=== PATIENT | female | born 1970 | race Caucasian/White ===

== ENCOUNTER 2016-11-09 09:17 | Emergency (ER) | payer OTHER, MEDICARE, MEDICAID ==
[~2016-11-09] VITALS: Ht 157.5 cm; Wt 110.7 kg
[~2016-11-09 09:17] MED LIST: ACYC400T21 PO; ADVAIR IH; ALBU0.8322 IH; ALBU17AE23 IH; ALPR.25T; ALPR.25T PO; ALPR.5T PO; ALPR0.25 PO; ALPR0.254 PO; ALPR0.5T PO; ALPR0.5T7 PO; AMOX500C2 PO; ARIP10TA2 PO; ATOR10TA PO; ATOR40TA70 PO; AZIT250T5 PO; AZTH250C PO; BENZ100C18 PO; BUDE10.2 IH; BUDE6HFA IH; BUPR300T PO; BUPR300T51 PO; CALC500T6 PO; CEFD300C3 PO; CEFU250T PO; CETI10TA17 PO; CHLO10TA10 PO; CHOL100061 PO; CHOL400C8 PO; CLAR500T2 PO; CLON0.5T3 PO; CLOT45CR46 TOP; CYAN10007 PO; DESV50TA PO; DEXA1TAB PO; DIAZ-345 PO; DIAZ10TA PO; DOXY100C2 PO; DOXY100C42 PO; DXCC100C PO; ERGO400C PO; FLC100T1 PO; FLUC100T PO; FLUO20CA25 PO; FLUO40CA PO; FLUO40CA12 PO; FLUT16SP22; FLUT16SP22 NS; FLUT1DIS26 IH; FURO20TA4 PO; GABA-488 PO; GABA-490 PO; GARL200T PO; GFN600TCR PO; GUAI100L13 PO; GUAIFENESIN PO; HYDR-2858 PO; HYDR25CA PO; HYDR25TA4 PO; HYDR50TA76 PO; IBP200T PO; IBUP-1780 PO; IBUP800T26 PO; INSU100I14 SQ; IPRA3AMP11 NEB; IPRA3AMP19 IH; KCL20TCR PO; LEVA1.2516 IH; LEVO500T2 PO; LEVO500T69 PO; LEVO500T80 PO; LEVO750T24 PO; LEVO750T6 PO; LISI10TA; LORA-405 PO; LORA0.5T PO; LORA10TA7 PO; LOVA20TA2 PO; LVF500T; LVF500T PO; MAGIC MOUTHWASH MT; MAGIC MOUTHWASH PO; MELA1TAB11 PO; MELA1TAB20 PO; METF500T4 PO; METH4TAB PO; MNTL10T PO; MONT10TA24 PO; MORP15TA PO; MORP20SO15 PO; MORP30TA91 PO; MORP60CP12 PO; MTF500T PO; MULT-974 PO; NAPR-243 PO; NCT21TD TOP; NF-XOP-HFA IH; NICO1PAT6 TD; NICO4LOZ47 BC; NYST1000 MM; NYST1000 PO; OFLO5DRO7 LEFT EAR; OMEP20CA12 PO; OXYC-197 PO; PANT40TA PO; PNT40TEC PO; POTA10TA PO; POTA99TA21 PO; PRD10T; PRD10T PO; PRD20T PO; PRD50T PO; PRD5T PO; PRED10TA PO; PRED10TA22 PO; PRED5TAB PO; PROZAC; PRX25T PO; QUET25TA33 PO; QUET50TA21 PO; ROFL500T PO; ROFL500T4 PO; RT-ALBUINH INH; SENN1TAB76 PO; SLMFT1E IH; SPIRIVA; SULF1TAB38 PO; THEOPHYLLINE; THP300TCR PO; TIOT18CA IH; TIOT18CA2 IH; TIOT4MIS3 IH; TRAM-42 PO; TRIA100A TP; VALERIAN ROOT PO; VILA10TA PO; VILA1TAB PO; VISTARIL; VORT10TA PO; [UNRECOGNIZED DRUG - OTHER]; [UNRECOGNIZED DRUG - REMARK]; prednisone
[2016-11-09] MEDS ORDERED: ONDANSETRON 4 MG (ZOFRAN) ORAL DISSOLVE TAB PO ONE (10:00)
[2016-11-09] MEDS ORDERED: TETANUS,DIPTH,PERTUSS P/F (BOOSTRIX) 0.5 ML VIAL IM ONE (10:00)
--- NOTE | 2016-11-09 10:33 | Diagnostic Imaging Report ---
INDICATION: Pelvic pain AP view pelvis shows no fracture or dislocation. IMPRESSION: Negative pelvis Dictated by: Dictated on workstation # [id number]
--- NOTE | 2016-11-09 10:38 | Diagnostic Imaging Report ---
INDICATION: Left hip pain and bruising Two views of the left hip show no fracture or dislocation. IMPRESSION: Negative left hip Dictated by: Dictated on workstation # [id number]
--- NOTE | 2016-11-09 10:42 | Diagnostic Imaging Report ---
PROCEDURE: CT head and maxillofacial without contrast. TECHNIQUE: Multiple contiguous axial images were obtained through the head and facial bones without the use of intravenous contrast. INDICATION: Fall. Headache. Head injury. COMPARISON: None. FINDINGS: No fractures. The paranasal sinuses and mastoids are clear. Moderate degenerative changes in the temporomandibular joints, left greater than right. Nasal septal perforation measuring approximately 1.3 x 1.5 cm. The orbits are negative. No intracranial hemorrhage, mass effect, hydrocephalus or extra-axial fluid collections. No CT evidence of acute infarction. IMPRESSION: 1. No acute intracranial CT findings. No fractures. 2. Nasal septal perforation measuring up to 1.5 cm Dictated by: Dictated on workstation # [id number]
[2016-11-09] MEDS ORDERED: SULF1TAB35 PO (10:49)
[2016-11-09] MEDS ORDERED: MUPI15CR TP (10:49)
[2016-11-09 10:50] VITALS: BP 123/76
--- NOTE | 2016-11-09 10:50 | ED Integumentary General ---
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, L HIP HAS VERY LARGE BRUISE NOTED PT DENIES FALLING, PT HAS R SIDE BLACK EYE, PT HAS SOME NAUSE Source: patient History of Present Illness Time seen by provider: 09:47 Initial Comments PT STATES SHE NOTICED A RED AREA TO RIGHT SIDE OF HER ABDOMEN YESTERDAY AREA IS ITCHY AND PAINFUL DID NOT SEE OR FEEL ANYTHING BITE HER DID NOT HAVE A SORE, ETC IN THE AREA BEFORE THIS NO DRAINAGE NO FEVER PT ALSO NOTICED A LARGE BRUISE TO LEFT HIP TODAY STATES AREA IS SORE ALSO HAS A SMALL BRUISE/REDNESS TO RIGHT BROW--NON-TENDER PT DOES NOT RECALL INJURING HERSELF C/O NAUSEA--NO VOMITING NO ABDOMINAL PAIN NO DIARRHEA/CONSTIPATION PCP: DR GARCIA Allergies and Home Medications Allergies Coded Allergies: codeine (Verified Allergy, Intermediate, hives, 05/14/16) Home Medications #120 MT Q2 HRS PRN PRN PAIN Prescribed by: CHRISTELLE UNDERWOOD on 06/17/16 1524 Albuterol Sulfate 8.5 Gm Hfa.aer.ad 2 PUFF INH Q4H PRN PRN SHORTNESS OF BREATH ( Reported) LAST FILLED 09-16-15 Albuterol/Ipratropium 3 Ml Nebu 3 ML NEB QID (Reported) FOUR TIMES A DAY SCHEDULED AND NEEDED EVERY 6 HOURS. Alprazolam 0.5 Mg Tablet 0.5 MG PO DAILY PRN PRN ANXIETY (Reported) Budesonide/Formoterol Fumarate 10.2 Gm Hfa.aer.ad 2 PUFF IH BID (Reported) Cetirizine HCl 10 Mg Tablet 10 MG PO DAILY (Reported) Cholecalciferol (Vitamin D3) 1,000 Unit Tablet 1,000 UNIT PO BID (Reported) Fluconazole 100 Mg Tablet #30 100 MG PO DAILY Prescribed by: CHRISTELLE UNDERWOOD on 06/17/16 1524 Fluoxetine HCl 40 Mg Capsule 40 MG PO DAILY (Reported) Fluticasone Propionate 16 Gm [place].susp 1 SPRAY NA DAILY PRN PRN ALLERGIES ( Reported) Gabapentin 400 Mg Capsule 400 MG PO BID (Reported) Hydrochlorothiazide 25 Mg Tablet 25 MG PO DAILY (Reported) Hydroxyzine HCl 50 Mg Tablet 50 MG PO Q8H PRN PRN ANXIETY (Reported) Insulin Aspart 300 Units/3 Ml Solution 7-10 UNITS SQ TID (Reported) WILL HOLD IF BS IS 180-200 Lorazepam 0.5 Mg Tablet #14 0.5 MG PO TID PRN PRN ANXIETY Prescribed by: JOHN KILPATRICK on 08/17/16 1543 Metformin HCl 500 Mg Tablet 500 MG PO QID (Reported) Mupirocin Calcium 15 Gm Cream..g. #22 15 GM TP BID Prescribed by: CHRISTELLE UNDERWOOD on 11/09/16 1049 Omeprazole 20 Mg Capsule.dr 20 MG PO DAILY (Reported) Oxycodone HCl/Acetaminophen 1 Each Tablet #20 1 EACH PO Q6H PRN PRN PAIN Prescribed by: JOHN KILPATRICK on 05/04/16 1856 Potassium Gluconate 99 Mg Tablet 99 MG PO DAILY PRN PRN CRAMPS (Reported) Prednisone 10 Mg Tab.ds.pk 10 MG PO (Reported) Sulfamethoxazole/Trimethoprim 1 Each Tablet #20 1 EACH PO BID Prescribed by: CHRISTELLE UNDERWOOD on 11/09/16 1049 Tiotropium [place] 1 Inh Aerp 1 CAP IH DAILY (Reported) Tramadol HCl 50 Mg Tablet #14 50 MG PO Q6H PRN PRN PAIN Prescribed by: JOHN KILPATRICK on 05/14/16 1102 Vortioxetine Hydrobromide 10 Mg Tablet 10 MG PO DAILY (Reported) Constitutional: no symptoms reported Respiratory: other (CHRONIC DYSPNEA/STABLE) Cardiovascular: no symptoms reported Gastrointestinal: No abdominal pain, No loss of appetite, nauseaNo vomiting Genitourinary: no symptoms reported Musculoskeletal: see HPI Skin: see HPI Psychiatric/Neurological: No Symptoms Reported Past Mfhxifl-Kdmgmo-Hlqovv Hx Patient Social History Alcohol Use: Denies Use Recreational Drug Use: No Smoking Status: Former Smoker Type Used: Cigarettes Former Smoker/When Quit: Recent Foreign Travel: No Contact w/Someone Who Travel: No Recent Infectious Disease Expo: No Recent Hopitalizations: No ( X 2, ANXIETY ATTACK, DEPRESSION) Immunizations Up To Date Tetanus Booster (TDap): Unknown PED Vaccines UTD: No Date of Pneumonia Vaccine: May 24, 2012 Date of Influenza Vaccine: Jun 25, 2015 Seasonal Allergies Seasonal Allergies: No Surgeries HX Surgeries: Yes (LEFT EYE--LASER REPAIR OF DETACHED RETINA) Surgeries: Section, Eye Surgery, Gallbladder, Tubal Ligation Respiratory Hx Respiratory Disorders: Yes (HOME O2-CHRONIC RESPIRATORY FAILURE, NO VENTILATOR--PER PT) Respiratory Disorders: Asthma, Pneumonia, Chronic Bronchitis, Sleep Apnea, COPD , Emphysema Cardiovascular Hx Cardiac Disorders: Yes Cardiac Disorders: Hypertension Neurological Hx Neurological Disorders: No Reproductive System Hx Reproductive Disorders: No Sexually Transmitted Disease: Yes (HERPES) HIV/AIDS: No 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 Disorders: Denies HATCH BOSS History: Menopausal Genitourinary Hx Genitourinary Disorders: No Gastrointestinal Hx Gastrointestinal Disorders: Yes Gastrointestinal Disorders: Gastroesophageal Reflux, Gall Bladder Disease Musculoskeletal Hx Musculoskeletal Disorders: Yes (SHOULDER PAIN ) Musculoskeletal Disorders: Fibromyalgia, Fractures Endocrine Hx Endocrine Disorders: Yes (OBESITY) Endocrine Disorders: Diabetes, Insulin dep HEENT HX ENT Disorders: Yes (L DETACHED RETINA-LASER REPAIR,L EYE IMPAIRED VISION; CHR SORE UNDER TONGUE) Loss of Vision: Denies Hearing Impairment: Denies Cancer Hx Cancer: No Psychosocial Hx Psychiatric Problems: Yes Behavioral Health Disorders: Anxiety, Depression Integumentary HX Skin/Integumentary Disorder: Yes (RASHES, abd folds and beneath her breast bilaterally red) Skin/Integumentary Disorders: Recent Skin Changes, Herpes Blood Transfusions Hx Blood Disorders: No Adverse Reaction to a Blood Tr: No Family Medical History Family Medial History: CHF grandmother Diabetes mellitus grandmother FH: CHF (congestive heart failure) History of - respiratory disease 03 FATHER (COPD) Physical Exam Vital Signs Vital Sign - Last 12Hours 11/09/16 09:20 Temp 97.8 Pulse 111 Resp 24 B/P 123/76 Pulse Ox 90 O2 Delivery Nasal Cannula O2 Flow Rate 4 Capillary Refill : Less Than 3 Seconds General Appearance: no apparent distress obese (MORBIDLY OBESE) HEENT: other (HAS SLIGHTLY RED AREA TO RIGHT BROW AREA, NON-TENDER) Cardiovascular: regular rate, rhythm Respiratory: no respiratory distress wheezing (FAINT EXPIRATORY WHEEZING BILATERALLY--CHRONIC / STABLE) Gastrointestinal: non tender soft Back: no CVA tenderness no vertebral tenderness Extremities: other (HAS MASSIVE BRUISE TO LEFT HIP/PROXIMAL THIGH AREA-- APPEARS TO BE SEVERAL DAYS OLD; MILDLY TENDER) 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 NO AREAS OF FLUCTUANCE. NO DRAINAGE. NO STREAKS. ) Progress/Results/Core Measures Results/Orders My Orders Orders-CHRISTELLE UNDERWOOD DO Dipht,Pertuss(Acell),Tet Adult (Boostrix (11/09/16 10:00) Ondansetron Oral Dissolve Tab (Zofran (11/09/16 10:00) Ct Head/Maxillofacial Wo (11/09/16 09:59) Pelvis (11/09/16 09:59) Hip, Left, 2 Views (11/09/16 09:59) Medications Given in ED Vital Signs/I&O Vital Sign - Last 12Hours 11/09/16 11/09/16 09:20 10:50 Temp 97.8 97.8 Pulse 111 111 Resp 24 24 B/P 123/76 Pulse Ox 90 90 O2 Delivery Nasal Cannula O2 Flow Rate 4 4 Blood Pressure Mean: [address] HEAD/MAXILLOFACIALS--NO ACUTE PROCESS, NASAL SEPTAL PERFORATION--PER RADIOLOGIST REPORT XRAYS PELVIS AND LEFT HIP--NO ACUTE PROCESS, PER RADIOLOGIST REPORT Reviewed: Reviewed by Me Departure Impression Impression: Primary Impression: CELLULITIS RIGHT FLANK Additional Impressions: Hematoma of left hip Minor head injury without loss of consciousness Doheuxpfmn-vlavktssu-odjrrmv (DPT) vaccination administered at current visit Disposition: 01 HOME, SELF-CARE Condition: Stable Departure-Patient Inst. Referrals: TEMITOPE GARCIA DO (PCP/Family) Primary Care Physician Patient Instructions: Cellulitis (Skin Infection), Adult (DC), Diphtheria and Tetanus Toxoids, and Acellular Pertussis Vaccine, HEMATOMA, Minor Head Injury ( DC) Add. Discharge Instructions: CLEAN AREA TWICE A DAY WITH ANTIBACTERIAL SOAP AND WATER, APPLY ANTIBIOTIC OINTMENT AND FRESH DRESSING TWICE A DAY TYLENOL AND MOTRIN NEEDED FOR PAIN FOLLOW UP WITH DR. GARCIA IN 2-3 DAYS FOR WOUND RECHECK All discharge instructions reviewed with patient and/or family. Voiced understanding. Scripts Mupirocin Calcium (Bactroban)15 Gm Cream..g.15 Gm TP BID #22 TUBE Prov:CHRISTELLE UNDERWOOD DO 11/09/16 Sulfamethoxazole/Trimethoprim (Bactrim Ds Tablet)1 Each Tablet1 Each PO BID #20 TAB Prov:CHRISTELLE UNDERWOOD DO 11/09/16 CHRISTELLE UNDERWOOD DO Nov 09, 2016 10:50
== END 2016-11-09 10:50 | disposition home or self-care (01) ==
LOC: EDUNIT# 09:17 → ER 09:19
DX: L03.311 Cellulitis of abdominal wall (principal); S00.11XA Contusion of right eyelid and periocular area, initial encounter; S70.02XA Contusion of left hip, initial encounter; Z23 Encounter for immunization; X58.XXXA Exposure to other specified factors, initial encounter; Y99.8 Other external cause status
CPT/HCPCS: 70450; 70486; 72170; 73502; 90471; 90715; 99281

== ENCOUNTER 2016-11-11 09:36 | Inpatient (IN) | payer MEDICARE, MEDICAID ==
[2016-11-11] VITALS (7 sets, daily range): BP systolic 116–137; BP diastolic 69–89
[~2016-11-11] VITALS: Ht 157.5 cm; Wt 103.9 kg
[~2016-11-11 09:36] MED LIST changes: +MUPI15CR TP; +SULF1TAB35 PO
[2016-11-11 10:26] LABS: BASOPHILS % (AUTO) 0 % (0-10); EOSINOPHILS # (AUTO) 0.2 10^3/uL (0.0-0.3); EOSINOPHILS % (AUTO) 1 % (0-10); LYMPHOCYTES # (AUTO) 1.3 X 10^3 (1.0-4.0); LYMPHOCYTES % (AUTO) 7 % (12-44); MEAN CORPUSCULAR HEMOGLOBIN 28 PG (25-34); MEAN CORPUSCULAR HGB CONC 28 G/DL (32-36); MEAN CORPUSCULAR VOLUME 97 FL (80-99); MEAN PLATELET VOLUME 9.5 FL (7.4-10.4); MONOCYTES % (AUTO) 5 % (0-12); NEUTROPHILS # (AUTO) 16.5 X 10^3 (1.8-7.8); NEUTROPHILS % (AUTO) 87 % (42-75); PLATELET COUNT 364 10^3/uL (130-400); RED CELL DISTRIBUTION WIDTH 14.5 % (10.0-14.5)
[2016-11-11 10:34] LABS: PROTHROMBIN TIME PATIENT 12.9 SEC (12.2-14.7)
[2016-11-11 10:40] LABS: ALANINE AMINOTRANSFERASE 13 U/L (0-55); ALBUMIN 3.8 G/DL (3.2-4.5); AMMONIA 43 UMOL/L (11-32); ANION GAP 14 MMOL/L (5-14); ASPARTATE AMINO TRANSFERASE 11 U/L (5-34); BILIRUBIN,TOTAL 0.3 MG/DL (0.1-1.0); BLOOD UREA NITROGEN 10 MG/DL (7-18); BUN/CREATININE RATIO 16; CALCIUM 9.1 MG/DL (8.5-10.1); CARBON DIOXIDE 33 MMOL/L (21-32); CHLORIDE 93 MMOL/L (98-107); CREATININE SERUM 0.63 MG/DL (0.60-1.30); GFR ESTIMATED > 60; GLUCOSE 136 MG/DL (70-105); POTASSIUM 4.4 MMOL/L (3.6-5.0); SODIUM 140 MMOL/L (135-145); TOTAL PROTEIN 6.9 G/DL (6.4-8.2)
[2016-11-11 10:41] LABS: ALCOHOL < 10 MG/DL (<10)
--- NOTE | 2016-11-11 10:55 | Diagnostic Imaging Report ---
INDICATION: Confusion, increased compared to earlier this week. Noncontrast brain CT is performed and compared with 11/09/2016. There are no extra-axial fluid collections. No intracranial hemorrhage. No intracranial mass or mass effect. No midline shift. The ventricles are normal in size and position. There are no focal parenchymal abnormalities in the brain. Calvarial windows show no acute finding. IMPRESSION: Negative noncontrast brain CT. Dictated by: Dictated on workstation # [id number]
[2016-11-11 11:14] LABS: ABG HCO3 37 MMOL/L (23-27); ABG OXYGEN SATURATION 95 % (94-100); ABG PO2 74 MMHG (79-93); ABG TCO2 39.1 MMOL/L (21.0-31.0)
[2016-11-11 11:16] LABS: ABG PH 7.28 (7.37-7.43)
[2016-11-11 11:17] LABS: ABG PCO2 80 MMHG (35-45); ALLENS TEST YES-POS; PATIENT TEMP 96.9
[2016-11-11 11:24] LABS: BAND NEUTROPHILS 0 %; BASOPHILS % (MANUAL) 0 %; EOSINOPHILS % (MANUAL) 2 %; HYPOCHROMASIA MODERATE; LYMPHOCYTES % (MANUAL) 3 %; NEUTROPHILS % (MANUAL) 91 %; POIKILOCYTOSIS SLIGHT; POLYCHROMASIA SLIGHT; STOMATOCYTES MARKED
--- NOTE | 2016-11-11 11:24 | Diagnostic Imaging Report ---
INDICATION: Altered metal status and hypoxia. PA and lateral chest obtained at 11:04 AM and compared with 08/17/2016. Heart is mildly enlarged. There is mild central vascular prominence which is similar to the prior study. There are chronic-appearing increased basilar markings, perhaps mildly worsened in the right medial base compared to the prior study. There is no pneumothorax or pleural fluid. There is an unchanged mild compression deformity in the midthoracic spine. IMPRESSION: Cardiomegaly and mild central vascular prominence. There are chronic-appearing increased basilar markings with some mild worsening on the right side, which may represent superimposed infiltrate. There is no pneumothorax or pleural fluid. Dictated by: Dictated on workstation # [id number]
[2016-11-11] MEDS ORDERED: RT-ALBUTEROL/IPRATROPIUM 3 ML (DUONEB) VIAL INH ONE (11:30)
[2016-11-11] MEDS ORDERED: cefTRIAXone INJECTION 1,000 MG in NS (IVPB) 50 ML IV ONE (11:45)
[2016-11-11] MEDS ORDERED: methylPREDNISolone 125 MG (Solu-MEDROL) VIAL IVP ONE (11:45)
[2016-11-11] MEDS ORDERED: CATHETER FLUSH 10 ML SYR IV PRN (13:15)
[2016-11-11] MEDS ORDERED: EMPA10TA PO (13:53)
[2016-11-11] MEDS ORDERED: [UNRECOGNIZED DRUG - CODE] PO (13:53)
[2016-11-11] MEDS ORDERED: TRAZ100T92 PO (13:53)
[2016-11-11] MEDS ORDERED: TIOT4MIS2 IH (13:53)
[2016-11-11] MEDS ORDERED: MUPI22OI2 TP (13:53)
[2016-11-11] MEDS ORDERED: GABA600T2 PO (13:53)
[2016-11-11] MEDS ORDERED: PRD10T PO (13:53)
[2016-11-11] MEDS ORDERED: MONT10TA24 PO (13:53)
[2016-11-11] MEDS ORDERED: SULF1TAB35 PO (13:53)
[2016-11-11] MEDS ORDERED: IBUP-1780 PO (13:53)
[2016-11-11] MEDS ORDERED: ROFL500T4 PO (13:53)
[2016-11-11] MEDS: CATHETER FLUSH 10 ML SYR IV SCH ×2 (14:08→22:00)
[2016-11-11] MEDS: DOXYCYCLINE 100 MG/NS 100 ML IVPB IV SCH ×4 (14:08→21:59)
[2016-11-11] MEDS: RT-ALBUTEROL/IPRATROPIUM 3 ML (DUONEB) VIAL INH SCH ×3 (14:57→22:48)
[2016-11-11] MEDS: inSUlin (REGULAR) HUMAN 1 UNIT/0.01 ML (CHARGE PER UNIT) SC SCH ×2 (16:00→21:17)
[2016-11-11] MEDS: metFORMIN 500 MG (GLUCOPHAGE) TAB PO SCH ×2 (17:52→21:59)
[2016-11-11] MEDS: IBUPROFEN 800 MG (MOTRIN) TAB PO SCH (17:55)
[2016-11-11] MEDS: methylPREDNISolone 125 MG (Solu-MEDROL) VIAL IV SCH (17:56)
[2016-11-11] MEDS: RT-ADVAIR HFA 115/21 MCG PER PUFF IH SCH (18:23)
--- NOTE | 2016-11-11 19:36 | ED General ---
General Chief Complaint: Altered Mental Status Stated Complaint: ACUTE ON CHRONIC RESPIRATORY FAILURE COPD PNEUMONI Nursing Triage Note: PT COMES FROM DR RICHTER OFFICE WITH C/O AMS. PT FAMILY REPORTS THAT PT HAS BEEN CONFUSED AND SLEEPING A LOT. PT IS OXYGEN DEPENDENT, AND IT IS UNKNOWN IF SHE HAS BEEN WEARING HER OXYGEN. Nursing Sepsis Screen: No Definite Risk Source of Information: Family, Old Records, Other (DR. GARCIA) Exam Limitations: Other (PT IS LIMITED HISTORIAN, SOMEWHAT CONFUSED) History of Present Illness Time Seen by Provider: 09:50 Initial Comments PT ARRIVES VIA POV FROM DR. GARCIA'S OFFICE PT HAS HAD ALTERED MENTAL STATUS--HAS BEEN CONFUSED AND SLEEPING ALOT--THIS IS A FREQUENT C/O NAUSEA, NO VOMITING C/O HEADACHE PT WITH COPD AND IS O2 DEPENDENT, BUT FREQUENTLY WILL TAKE HER O2 OFF, AND THEN WILL BECOME CONFUSED PT WITH EXTENSIVE HISTORY OF NON-COMPLIANCE IN ALL ASPECTS OF CARE PT VERY WELL KNOWN TO ER STAFF FAMILY MEMBER REPORTS THAT PT WAS OUTSIDE FOR QUITE SOME TIME OVER THE WEEKEND, AND WOULD NOT WEAR HER OXYGEN WHILE SHE IS OUTSIDE. HAS REPORTEDLY GRADUALLY BECAME MORE CONFUSED AND LETHARGIC AND SLEEPING ALOT. WAS VERY CONFUSED ON WEDNESDAY AFTER SHE HAD BEEN OUTSIDE FOR UNKNOWN LENGTH OF TIME WITHOUT HER OXYGEN. FAMILY DID NOT BRING HER IN AT THAT TIME--IS UNCLEAR WHY THEY DID NOT, FAMILY IS AWARE OF THIS FREQUENT ISSUE WITH PT. PT WAS SEEN HERE 2 DAYS AGO FOR CELLULITIS OF RIGHT ABDOMEN PT ALSO HAD A VERY LARGE BRUISE TO LEFT HIP AREA, THAT SHE HAD NO IDEA HOW SHE GOT--DID NOT REMEMBER INJURING HERSELF PT ALSO HAD A SLIGHT BRUISE TO RIGHT BROW--ALSO WAS UNAWARE THAT SHE HAD IT XRAYS OF HIP AND CT OF HEAD/FACE/CERVICAL SPINE WERE ALL NEGATIVE AT THAT TIME. Allergies and Home Medications Allergies Coded Allergies: codeine (Verified Allergy, Intermediate, hives, 05/14/16) Home Medications Albuterol Sulfate 8.5 Gm Hfa.aer.ad 2 PUFF INH Q4H PRN PRN SHORTNESS OF BREATH ( Reported) Albuterol/Ipratropium 3 Ml Nebu 3 ML NEB QID PRN PRN SHORTNESS OF BREATH ( Reported) Alprazolam 0.5 Mg Tablet 0.5 MG PO BID (Reported) Budesonide/Formoterol Fumarate 10.2 Gm Hfa.aer.ad 2 PUFF IH BID (Reported) Cetirizine HCl 10 Mg Tablet 10 MG PO DAILY (Reported) Cholecalciferol (Vitamin D3) 1,000 Unit Tablet 1,000 UNIT PO BID (Reported) Empagliflozin 10 Mg Tablet 10 MG PO DAILY (Reported) Fluticasone Propionate 16 Gm [place].susp 1 SPRAY NA DAILY PRN PRN ALLERGIES ( Reported) Fluvoxamine Maleate 150 Mg Cap.er.24h 150 MG PO HS (Reported) Gabapentin 600 Mg Tablet 600 MG PO TID (Reported) Hydrochlorothiazide 25 Mg Tablet 25 MG PO DAILY (Reported) Hydroxyzine HCl 50 Mg Tablet 50 MG PO Q8H PRN PRN ANXIETY (Reported) Ibuprofen 800 Mg Tablet 800 MG PO BID (Reported) Insulin Aspart 300 Units/3 Ml Solution SQ TID (Reported) WILL HOLD IF BS IS 180-200 Metformin HCl 500 Mg Tablet 500 MG PO QID (Reported) Montelukast Sodium 10 Mg Tablet 10 MG PO DAILY (Reported) Mupirocin 22 Gm Oint...g. TP BID (Reported) Omeprazole 20 Mg Capsule.dr 20 MG PO DAILY (Reported) Potassium Gluconate 99 Mg Tablet 99 MG PO DAILY PRN PRN CRAMPS (Reported) Prednisone 10 Mg Tab 10 MG PO DAILY (Reported) Roflumilast 500 Mcg Tablet 500 MCG PO DAILY (Reported) Sulfamethoxazole/Trimethoprim 1 Each Tablet 1 TAB PO BID (Reported) FILLED 11/09/16 #20 FOR A 10 DAY THERAPY Tiotropium [place] 4 Gm [place].inhal 2 PUFF IH DAILY (Reported) Trazodone HCl 100 Mg Tablet 100 MG PO HS (Reported) Constitutional: other (VERY LIMITED) Psychiatric/Neurological: See HPI Past Dokjjve-Hgfvld-Sxffaq Hx Patient Social History Alcohol Use: Denies Use Recreational Drug Use: No Smoking Status: Former Smoker Type Used: Cigarettes Former Smoker/When Quit: Recent Foreign Travel: No Contact w/Someone Who Travel: No Recent Infectious Disease Expo: No Recent Hopitalizations: No ( X 2, ANXIETY ATTACK, DEPRESSION) Physical Abuse Screen: No Sexual Abuse: No Immunizations Up To Date Tetanus Booster (TDap): Unknown PED Vaccines UTD: No Date of Pneumonia Vaccine: May 24, 2012 Date of Influenza Vaccine: Sep 29, 2016 Seasonal Allergies Seasonal Allergies: No Surgeries HX Surgeries: Yes (LEFT EYE--LASER REPAIR OF DETACHED RETINA) Surgeries: Section, Eye Surgery, Gallbladder, Tubal Ligation Respiratory Hx Respiratory Disorders: Yes (HOME O2-CHRONIC RESPIRATORY FAILURE, NO VENTILATOR--PER PT) Respiratory Disorders: Asthma, Pneumonia, Chronic Bronchitis, Sleep Apnea, COPD , Emphysema Cardiovascular Hx Cardiac Disorders: Yes Cardiac Disorders: Hypertension Neurological Hx Neurological Disorders: No Reproductive System Hx Reproductive Disorders: No Sexually Transmitted Disease: Yes (HERPES) HIV/AIDS: No 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 Disorders: Denies 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 Genitourinary Hx Genitourinary Disorders: No Gastrointestinal Hx Gastrointestinal Disorders: Yes Gastrointestinal Disorders: Gastroesophageal Reflux, Gall Bladder Disease Musculoskeletal Hx Musculoskeletal Disorders: Yes (SHOULDER PAIN ) Musculoskeletal Disorders: Fibromyalgia, Fractures Endocrine Hx Endocrine Disorders: Yes (OBESITY) Endocrine Disorders: Diabetes, Insulin dep HEENT HX ENT Disorders: Yes (L DETACHED RETINA-LASER REPAIR,L EYE IMPAIRED VISION; CHR SORE UNDER TONGUE) Loss of Vision: Denies Hearing Impairment: Denies Cancer Hx Cancer: No Psychosocial Hx Psychiatric Problems: Yes Behavioral Health Disorders: Anxiety, Depression Integumentary HX Skin/Integumentary Disorder: Yes (RASHES, abd folds and beneath her breast bilaterally red) Skin/Integumentary Disorders: Recent Skin Changes, Herpes Blood Transfusions Hx Blood Disorders: No Adverse Reaction to a Blood Tr: No Family Medical History Family Medial History: CHF grandmother Diabetes mellitus grandmother FH: CHF (congestive heart failure) History of - respiratory disease 03 FATHER (COPD) Physical Exam Vital Signs Vital Sign - Last 12Hours 11/11/16 11/11/16 09:45 11:43 Temp 97.7 Pulse 125 Resp 25 B/P 128/79 Pulse Ox 92 O2 Delivery Nasal Cannula O2 Flow Rate 2 FiO2 35 Capillary Refill : Less Than 3 Seconds General Appearance: Obese Other (MILDLY LETHARGIC, SOMEWHAT CONFUSED/FORGETFUL /POOR MEMORY. PT SLIGHTLY DYSPNEIC BUT IS NORMAL FOR PT) HEENT: PERRL/EOMI TMs Normal Pharynx Normal Other (FAINT BRUISE TO RIGHT BROW. NON-TENDER) Neck: Full Range of Motion Normal Inspection Non Tender Supple Respiratory: Wheezing (FAINT EXPIRATORY WHEEZING BILATERALLY) Cardiovascular: Regular Rate, Rhythm Gastrointestinal: Non Tender Soft Back: No CVA Tenderness Extremity: Pedal Edema (TRACE BILATERALLY) Neurologic/Psychiatric: No Motor/Sensory Deficits Other (MENTATION ABOVE) Skin: Normal Color Warm/Dry Ecchymosis (MASSIVE BRUISE TO LEFT HIP/THIGH, NOW WITH DEPENDENT TRACKING DOWN TO LOWER LEG. AREA OF CELLULITIS TO RIGHT MID ABDOMEN HAS BECOME SMALLER IN SIZE, AND IS MUCH LESS RED AND LESS INDURATED. NON -TENDER. NO AREAS OF FLUCTUANCE, NO DRAINAGE, NO STREAKS. ) Progress/Results/Core Measures Results/Orders Lab Results Laboratory Tests Test 11/11/16 10:10 11/11/16 11:04 11/11/16 16:08 Range/Units Activated Partial Thromboplast Time 29 24-35 SEC Alanine Aminotransferase (ALT/SGPT) 13 0-55 U/L Albumin 3.8 3.2-4.5 G/DL Alkaline Phosphatase 89 40-136 U/L Ammonia 43 H 11-32 UMOL/L Anion Gap 14 5-14 MMOL/L Aspartate Amino Transf (AST/SGOT) 11 5-34 U/L BUN/Creatinine Ratio 16 Band Neutrophils 0 % Basophils # (Auto) 0.0 0.0-0.1 10^3/uL Basophils % (Manual) 0 % Basophils (%) (Auto) 0 0-10 % Blood Urea Nitrogen 10 7-18 MG/DL Calcium Level 9.1 8.5-10.1 MG/DL Carbon Dioxide Level 33 H 21-32 MMOL/L Chloride Level 93 L 98-107 MMOL/L Creatinine 0.63 0.60-1.30 MG/DL Eosinophils # (Auto) 0.2 0.0-0.3 10^3/uL Eosinophils % (Manual) 2 % Eosinophils (%) (Auto) 1 0-10 % Estimat Glomerular Filtration Rate > 60 Glucose Level 136 H 70-105 MG/DL Hematocrit 31 L 35-52 % Hemoglobin 8.8 L 11.5-16.0 G/DL Hypochromasia MODERATE INR Comment 1.0 0.8-1.4 Lactic Acid Level 0.6 0.5-2.0 MMOL/L Lymphocytes # (Auto) 1.3 1.0-4.0 X 10^3 Lymphocytes % (Manual) 3 % Lymphocytes (%) (Auto) 7 L 12-44 % Magnesium Level 2.0 1.8-2.4 MG/DL Mean Corpuscular Hemoglobin 28 25-34 PG Mean Corpuscular Hemoglobin Concent 28 L 32-36 G/DL Mean Corpuscular Volume 97 80-99 FL Mean Platelet Volume 9.5 7.4-10.4 FL Monocytes # (Auto) 1.0 0.0-1.0 X 10^3 Monocytes % (Manual) 4 % Monocytes (%) (Auto) 5 0-12 % Neutrophils # (Auto) 16.5 H 1.8-7.8 X 10^3 Neutrophils % (Manual) 91 % Neutrophils (%) (Auto) 87 H 42-75 % Platelet Count 364 130-400 10^3/uL Poikilocytosis SLIGHT Polychromasia SLIGHT Potassium Level 4.4 3.6-5.0 MMOL/L Prothrombin Time 12.9 12.2-14.7 SEC Red Blood Count 3.20 L 4.35-5.85 10^6/uL Red Cell Distribution Width 14.5 10.0-14.5 % Serum Alcohol < 10 <10 MG/DL Sodium Level 140 135-145 MMOL/L Stomatocytes MARKED TSH [place] Testing 0.89 0.35-4.94 UIU/ML Total Bilirubin 0.3 0.1-1.0 MG/DL Total Protein 6.9 6.4-8.2 G/DL White Blood Count 19.0 H 4.3-11.0 10^3/uL Low Test YES-POS Arterial Blood Base Excess 8.0 H -2.5-2.5 MMOL/L Arterial Blood HCO3 37 H 23-27 MMOL/L Arterial Blood Oxygen Saturation 95 94-100 % Arterial Blood Partial Pressure CO2 80 *H 35-45 MMHG Arterial Blood Partial Pressure O2 74 L 79-93 MMHG Arterial Blood Total CO2 39.1 H 21.0-31.0 MMOL/L Arterial Blood pH 7.28 *L 7.37-7.43 Blood Gas Inspired Oxygen 4 Blood Gas Patient Temperature 96.9 Blood Gas Puncture Site L BRACH Blood Gas Ventilator Setting NO Glucometer 199 H 70-110 MG/DL Micro Results Microbiology 11/11/16 Influenza Types A,B Antigen (BAN) - Final, Complete My Orders Orders-CHRISTELLE UNDERWOOD DO Saline Lock/Iv-Start (11/11/16 09:54) O2 (11/11/16 09:54) Monitor-Rhythm Ecg Trace Only (11/11/16 09:54) Alcohol (11/11/16 09:54) Ammonia (11/11/16 09:54) Cbc With Automated Diff (11/11/16 09:54) Comprehensive Metabolic Panel (11/11/16 09:54) Drug Screen Stat (Urine) (11/11/16 09:54) Magnesium (11/11/16 09:54) Protime With Inr (11/11/16 09:54) Partial Thromboplastin Time (11/11/16 09:54) Thyroid Analyzer (11/11/16 09:54) Ua Culture If Indicated (11/11/16 09:54) Chest Pa/Lat (2 View) (11/11/16 09:54) Ct Head Wo (11/11/16 09:54) Lactic Acid Analyzer (11/11/16 10:16) Blood Culture (11/11/16 10:16) Manual Differential (11/11/16 10:10) Arterial Blood Gas (11/11/16 11:04) Influenza A And B Antigens (11/11/16 11:24) Albuterol/Ipra Inhalation Soln (Duoneb I (11/11/16 11:30) Ceftriaxone Injection (Rocephin Injectio (11/11/16 11:45) Methylprednisolone Sod Succ (Solu-Medrol (11/11/16 11:45) Medications Given in ED Current Medications Medications Dose Ordered Sig/[place] Route Start Time Stop Time Status Last Admin Dose Admin Albuterol/ Ipratropium 3 ml ONCE ONCE INH 11/11/16 11:30 11/11/16 11:31 DC 11/11/16 11:43 3 ML Vital Signs/I&O Vital Sign - Last 12Hours 11/11/16 11/11/16 11/11/16 11/11/16 09:45 10:10 11:28 11:43 Temp 97.7 Pulse 125 121 Resp 27 B/P 128/79 Pulse Ox 92 94 95 93 O2 Delivery Nasal Cannula Nasal Cannula O2 Flow Rate 2 2 35.00 FiO2 35 11/11/16 11/11/16 11/11/16 11/11/16 12:34 12:41 12:54 13:00 Temp 97.7 98.5 Pulse 105 123 123 122 Resp 27 24 24 B/P 121/89 Pulse Ox 97 97 97 O2 Delivery NIV/Bilevel O2 Flow Rate 35.00 35.00 35.00 11/11/16 11/11/16 11/11/16 11/11/16 13:12 13:45 14:14 14:57 Temp 98.9 Pulse 125 121 Resp 24 20 B/P 137/79 Pulse Ox 92 93 93 O2 Delivery NIV Bilevel NIV/Bilevel O2 Flow Rate 35.00 35.00 FiO2 35 11/11/16 11/11/16 11/11/16 11/11/16 15:00 16:00 16:11 17:06 Temp 99.1 99.1 97.9 Pulse 115 122 123 Resp 22 24 24 B/P 126/75 127/78 128/76 Pulse Ox 94 96 96 93 O2 Delivery NIV/Bilevel NIV/Bilevel Nasal Cannula O2 Flow Rate 35.00 4.00 35.00 6.00 11/11/16 11/11/16 18:23 18:32 Pulse 118 Resp 22 Pulse Ox 92 92 O2 Flow Rate 6.00 35.00 Blood Pressure Mean: 93 Point of Care Testing Finger Stick Blood Glucose: 199 Progress Note : Progress Note O2 SATS UP TO 91% ON 4L/NC PT PLACED ON BIPAP AND GIVEN NEB TREATMENT PRIOR TO ADMIT, WITH INCREASE IN AERATION AND DECREASE IN WHEEZING. Diagnostic Imaging Comments CT HEAD--NO ACUTE PROCESS, PER RADIOLOGIST REPORT @ 1110 CXR--CHRONIC LUNG CHANGES, BUT INCREASED MARKINGS IN RLL WITH POSSIBLE INFILTRATE--PER RADIOLOGIST REPORT Reviewed: Reviewed by Me, Discussed w/Radiologist Departure Communication Progress Notes SPOKE WITH DR. GARCIA, ACCEPTS PT FOR ADMIT Impression Impression: Primary Impression: ACUTE ON CHRONIC RESPIRATORY FAILURE Additional Impressions: Acute exacerbation of chronic obstructive airways disease Hematoma of left hip Pneumonia Carbon dioxide narcosis Sepsis CELLULITIS RIGHT MID ABDOMEN EXTREME NON-COMPLIANCE Disposition: ADMITTED INPATIENT Condition: Improved Decision to Admit Reason: Admit from ER (General) Decision to Admit/Date: Nov 11, 2016 Departure-Patient Inst. Referrals: TEMITOPE GARCIA DO (PCP) Primary Care Physician CHRISTELLE UNDERWOOD DO Nov 11, 2016 19:36
[2016-11-11] MEDS ORDERED: FLUVOXAMINE MALEATE 150 MG PO SCH (21:00)
[2016-11-11] MEDS: GABAPENTIN 600 MG (NEURONTIN) TAB PO SCH (21:59)
[2016-11-11] MEDS: VITAMIN D3 1,000 UNITS (CHOLECALCIFEROL) TABLET PO SCH (21:59)
[2016-11-12] VITALS: BP 121/74
[2016-11-12] MEDS: RT-ALBUTEROL/IPRATROPIUM 3 ML (DUONEB) VIAL INH SCH ×6 (02:43→22:52)
[2016-11-12 04:00] VITALS: BP 118/74
[2016-11-12 04:49] LABS: BASOPHILS % (AUTO) 0 % (0-10); EOSINOPHILS % (AUTO) 0 % (0-10); LYMPHOCYTES # (AUTO) 0.6 X 10^3 (1.0-4.0); LYMPHOCYTES % (AUTO) 5 % (12-44); MEAN CORPUSCULAR HEMOGLOBIN 27 PG (25-34); MEAN CORPUSCULAR HGB CONC 29 G/DL (32-36); MEAN CORPUSCULAR VOLUME 93 FL (80-99); MEAN PLATELET VOLUME 9.7 FL (7.4-10.4); MONOCYTES # (AUTO) 0.1 X 10^3 (0.0-1.0); MONOCYTES % (AUTO) 1 % (0-12); NEUTROPHILS # (AUTO) 11.8 X 10^3 (1.8-7.8); NEUTROPHILS % (AUTO) 95 % (42-75); PLATELET COUNT 411 10^3/uL (130-400); RED BLOOD COUNT 3.04 10^6/uL (4.35-5.85); RED CELL DISTRIBUTION WIDTH 14.6 % (10.0-14.5); WHITE BLOOD COUNT 12.4 10^3/uL (4.3-11.0)
[2016-11-12 05:10] LABS: ALANINE AMINOTRANSFERASE 14 U/L (0-55); ALBUMIN 3.5 G/DL (3.2-4.5); ANION GAP 12 MMOL/L (5-14); ASPARTATE AMINO TRANSFERASE 11 U/L (5-34); BILIRUBIN,TOTAL 0.3 MG/DL (0.1-1.0); BLOOD UREA NITROGEN 21 MG/DL (7-18); BUN/CREATININE RATIO 27; CALCIUM 9.3 MG/DL (8.5-10.1); CARBON DIOXIDE 33 MMOL/L (21-32); CHLORIDE 94 MMOL/L (98-107); CREATININE SERUM 0.79 MG/DL (0.60-1.30); GFR ESTIMATED > 60; GLUCOSE 320 MG/DL (70-105); POTASSIUM 4.3 MMOL/L (3.6-5.0); SODIUM 139 MMOL/L (135-145); TOTAL PROTEIN 6.6 G/DL (6.4-8.2)
[2016-11-12] MEDS: CATHETER FLUSH 10 ML SYR IV SCH ×3 (06:00→20:52)
[2016-11-12] MEDS: IBUPROFEN 800 MG (MOTRIN) TAB PO SCH (06:00)
[2016-11-12] MEDS: PANTOPRAZOLE 20 MG TABLET (PROTONIX) PO SCH (06:00)
[2016-11-12] MEDS: metFORMIN 500 MG (GLUCOPHAGE) TAB PO SCH ×4 (06:00→20:51)
[2016-11-12] MEDS: methylPREDNISolone 125 MG (Solu-MEDROL) VIAL IV SCH ×2 (06:01)
[2016-11-12] MEDS: inSUlin (REGULAR) HUMAN 1 UNIT/0.01 ML (CHARGE PER UNIT) SC SCH ×4 (06:02→20:56)
[2016-11-12] MEDS: UMECLIDINIUM BROMIDE (INCRUSE ELLIPTA) 7'S IH SCH (06:46)
[2016-11-12] MEDS: RT-ADVAIR HFA 115/21 MCG PER PUFF IH SCH ×2 (06:46→18:45)
--- NOTE | 2016-11-12 07:35 | Pulmonary Consultation ---
History of Present Illness History of Present Illness Date of Consultation 11/12/16 07:30 Date of Admission History of Present Illness 45yo with hx of severe COPD (has vent to mask at home), morbid obesity presented to ED secondary worsening confusion, and SOB. PT also had altered MS, and worsening confusion. ABG in ED showed acute respiratory acidosis. She has not been using vent to mask at home. She has also not been using her oxygen as much. I am consulted for pulmonary management. Pt has hx of multiple hospitalizations for COPDAE. Allergies and Home Medications Allergies Coded Allergies: codeine (Verified Allergy, Intermediate, hives, 05/14/16) Home Medications Albuterol Sulfate 8.5 Gm Hfa.aer.ad 2 PUFF INH Q4H PRN PRN SHORTNESS OF BREATH ( Reported) Albuterol/Ipratropium 3 Ml Nebu 3 ML NEB QID PRN PRN SHORTNESS OF BREATH ( Reported) Alprazolam 0.5 Mg Tablet 0.5 MG PO BID (Reported) Budesonide/Formoterol Fumarate 10.2 Gm Hfa.aer.ad 2 PUFF IH BID (Reported) Cetirizine HCl 10 Mg Tablet 10 MG PO DAILY (Reported) Cholecalciferol (Vitamin D3) 1,000 Unit Tablet 1,000 UNIT PO BID (Reported) Empagliflozin 10 Mg Tablet 10 MG PO DAILY (Reported) Fluticasone Propionate 16 Gm [place].susp 1 SPRAY NA DAILY PRN PRN ALLERGIES ( Reported) Fluvoxamine Maleate 150 Mg Cap.er.24h 150 MG PO HS (Reported) Gabapentin 600 Mg Tablet 600 MG PO TID (Reported) Hydrochlorothiazide 25 Mg Tablet 25 MG PO DAILY (Reported) Hydroxyzine HCl 50 Mg Tablet 50 MG PO Q8H PRN PRN ANXIETY (Reported) Ibuprofen 800 Mg Tablet 800 MG PO BID (Reported) Insulin Aspart 300 Units/3 Ml Solution SQ TID (Reported) WILL HOLD IF BS IS 180-200 Metformin HCl 500 Mg Tablet 500 MG PO QID (Reported) Montelukast Sodium 10 Mg Tablet 10 MG PO DAILY (Reported) Mupirocin 22 Gm Oint...g. TP BID (Reported) Omeprazole 20 Mg Capsule.dr 20 MG PO DAILY (Reported) Potassium Gluconate 99 Mg Tablet 99 MG PO DAILY PRN PRN CRAMPS (Reported) Prednisone 10 Mg Tab 10 MG PO DAILY (Reported) Roflumilast 500 Mcg Tablet 500 MCG PO DAILY (Reported) Sulfamethoxazole/Trimethoprim 1 Each Tablet 1 TAB PO BID (Reported) FILLED 11/09/16 #20 FOR A 10 DAY THERAPY Tiotropium [place] 4 Gm Mist.inhal 2 PUFF IH DAILY (Reported) Trazodone HCl 100 Mg Tablet 100 MG PO HS (Reported) Past Trygpdb-Zupjrv-Xqsmiy Hx Patient Social History Alcohol Use: Denies Use Recreational Drug Use: No Smoking Status: Former Smoker Type Used: Cigarettes Former Smoker/When Quit: Recent Foreign Travel: No Contact w/Someone Who Travel: No Recent Infectious Disease Expo: No Recent Hopitalizations: No ( X 2, ANXIETY ATTACK, DEPRESSION) Physical Abuse Screen: No Sexual Abuse: No Immunizations Up To Date Tetanus Booster (TDap): Unknown PED Vaccines UTD: No Date of Pneumonia Vaccine: May 24, 2012 Date of Influenza Vaccine: Sep 29, 2016 Seasonal Allergies Seasonal Allergies: No Surgeries HX Surgeries: Yes (LEFT EYE--LASER REPAIR OF DETACHED RETINA) Surgeries: Section, Eye Surgery, Gallbladder, Tubal Ligation Respiratory Hx Respiratory Disorders: Yes (HOME O2-CHRONIC RESPIRATORY FAILURE, NO VENTILATOR--PER PT) Respiratory Disorders: Asthma, Pneumonia, Chronic Bronchitis, Sleep Apnea, COPD , Emphysema Cardiovascular Hx Cardiac Disorders: Yes Cardiac Disorders: Hypertension Neurological Hx Neurological Disorders: No Reproductive System Hx Reproductive Disorders: No Sexually Transmitted Disease: Yes (HERPES) HIV/AIDS: No 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 Disorders: Denies 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 Genitourinary Hx Genitourinary Disorders: No Gastrointestinal Hx Gastrointestinal Disorders: Yes Gastrointestinal Disorders: Gastroesophageal Reflux, Gall Bladder Disease Musculoskeletal Hx Musculoskeletal Disorders: Yes (SHOULDER PAIN ) Musculoskeletal Disorders: Fibromyalgia, Fractures Endocrine Hx Endocrine Disorders: Yes (OBESITY) Endocrine Disorders: Diabetes, Insulin dep HEENT HX ENT Disorders: Yes (L DETACHED RETINA-LASER REPAIR,L EYE IMPAIRED VISION; CHR SORE UNDER TONGUE) Loss of Vision: Denies Hearing Impairment: Denies Cancer Hx Cancer: No Psychosocial Hx Psychiatric Problems: Yes Behavioral Health Disorders: Anxiety, Depression Integumentary HX Skin/Integumentary Disorder: Yes (RASHES, abd folds and beneath her breast bilaterally red) Skin/Integumentary Disorders: Recent Skin Changes, Herpes Blood Transfusions Hx Blood Disorders: No Adverse Reaction to a Blood Tr: No Family Medical History Family Medial History: CHF grandmother Diabetes mellitus grandmother FH: CHF (congestive heart failure) History of - respiratory disease 03 FATHER (COPD) Review of Systems Constitutional: : Malaise: WeaknessNo: Chills, Fever, Other, Sweats Eyes: No: Conjunctivae inflammation, Eyelid inflammation, Other, Pain, Redness , Vision change ENT: No: Ear discharge, Ear pain, Mouth pain, Mouth swelling, Nose congestion, Nose discharge, Nose pain, Other, Throat pain, Throat swelling Respiratory: : SOB with excertion: Shortness of breath: Sputum: Wheezing Cardiovascular: : Edema: Lt Headedness: Paroxysmal Noc. DyspneaNo: Chest Pain, Orthopnea, Other, Palpitations Gastrointestinal: No: Abdominal Pain, Constipation, Diarrhea, Hematochezia, Melena, Nausea, Other, Vomiting Genitourinary: No Dysuria, No Frequency, No Incontinence, No Hematuria, No Retention, No Other Musculoskeletal: No: arm pain, back pain, foot pain, hand pain, leg pain, neck pain, other, shoulder pain Skin: No: Bruising, Jaundice, Lesions, Other, Rash Neurological: : Change in speech: Confusion: Weakness Exam Exam Vital Signs Date Time Temp Pulse Resp B/P Pulse Ox O2 Delivery O2 Flow Rate FiO2 11/12/16 06:53 96 6.00 11/12/16 06:52 96 6.00 11/12/16 06:46 96 6.00 11/12/16 04:00 95 6.00 35 11/12/16 04:00 98.3 112 20 118/74 95 Nasal Cannula 6.00 11/12/16 02:44 110 20 96 35.00 11/12/16 01:00 114 11/12/16 00:31 113 20 92 35.00 11/12/16 00:00 98.6 117 24 121/74 96 NIV/Bilevel 35.00 11/12/16 00:00 96 35 11/11/16 22:49 118 23 90 35.00 11/11/16 21:10 NIV/Bilevel 35 11/11/16 20:00 94 6.00 11/11/16 20:00 99.1 120 22 116/69 95 NIV/Bilevel 35.00 11/11/16 19:00 110 11/11/16 18:32 118 22 92 35.00 11/11/16 18:23 92 6.00 11/11/16 17:06 97.9 123 24 128/76 93 Nasal Cannula 6.00 11/11/16 16:11 99.1 122 24 127/78 96 NIV/Bilevel 35.00 11/11/16 16:00 96 4.00 11/11/16 15:00 99.1 115 22 126/75 94 NIV/Bilevel 35.00 11/11/16 14:57 121 20 93 35.00 11/11/16 14:14 98.9 125 24 137/79 93 NIV/Bilevel 35.00 11/11/16 13:45 92 11/11/16 13:12 NIV Bilevel 35 11/11/16 13:00 122 11/11/16 12:54 123 24 97 35.00 11/11/16 12:41 98.5 123 24 121/89 97 NIV/Bilevel 35.00 11/11/16 12:34 97.7 105 27 97 35.00 11/11/16 11:43 93 35 11/11/16 11:28 121 27 95 35.00 11/11/16 10:10 94 Nasal Cannula 2 11/11/16 09:45 97.7 125 25 128/79 92 Nasal Cannula 2 I & O 11/12/16 07:00 Intake Total 1170 ml Output Total 1650 ml Balance -480 ml General Appearance: No Apparent Distress WD/WN Obese Other (MILDLY LETHARGIC, SOMEWHAT CONFUSED/FORGETFUL/POOR MEMORY. PT SLIGHTLY DYSPNEIC BUT IS NORMAL FOR PT) HEENT: PERRL/EOMI TMs Normal Pharynx Normal Other ([place] TO RIGHT BROW. NON-TENDER) Neck: Full Range of Motion Normal Inspection Non Tender Supple Respiratory: Wheezing (FAINT EXPIRATORY WHEEZING BILATERALLY) Cardiovascular: Regular Rate, Rhythm Capillary Refill: Less Than 3 Seconds Extremity: Pedal Edema (TRACE BILATERALLY) Neurologic/Psychiatric: No Motor/Sensory Deficits Other (MENTATION ABOVE) Skin: Normal Color Warm/Dry Ecchymosis (MASSIVE BRUISE TO LEFT HIP/THIGH, NOW WITH DEPENDENT TRACKING DOWN TO LOWER LEG. AREA OF CELLULITIS TO RIGHT MID ABDOMEN HAS BECOME SMALLER IN SIZE, AND IS MUCH LESS RED AND LESS INDURATED. NON -TENDER. NO AREAS OF FLUCTUANCE, NO DRAINAGE, NO STREAKS. ) Results Lab Laboratory Tests 11/11/16 10:10 11/12/16 04:19 Assessment/Plan Assessment/Plan Acute on chronic respiratory failure -BiPAP -SVNS COPDAE -SVNs PNA -continue Rocephin for now -chatman culture Morbid obesity Clinical Quality Measures DVT/VTE Risk/Contraindication: Risk Factor Score Per Nursin RFS Level Per Nursing on Admit: 4+=Very High LUIZA THOMPSON DO Nov 12, 2016 07:35
--- NOTE | 2016-11-12 07:50 | History & Physicial ---
History of Present Illness History of Present Illness Reason for visit/HPI patient was brought in by mother to the office yesterday. Patient was confused and was unable to answer questions. Patient has not been using her oxygen. Patient was also not using her BiPAP at times. Patient is noncompliant Patient has COPD and diabetes. Patient sent out to the emergency room. Chest x-ray shows superimposed pneumonia Arterial blood gas shows PCO2 of 80. Patient admitted Date of Admission Nov 11, 2016 at 11:43 I consulted on this patient on 11/12/16 07:45 Attending Physician Wilver Garcia DO Admitting Physician Wilver Garcia DO Consult Allergies and Home Medications Allergies Coded Allergies: codeine (Verified Allergy, Intermediate, hives, 05/14/16) Home Medications Albuterol Sulfate 8.5 Gm Hfa.aer.ad 2 PUFF INH Q4H PRN PRN SHORTNESS OF BREATH ( Reported) Albuterol/Ipratropium 3 Ml Nebu 3 ML NEB QID PRN PRN SHORTNESS OF BREATH ( Reported) Alprazolam 0.5 Mg Tablet 0.5 MG PO BID (Reported) Budesonide/Formoterol Fumarate 10.2 Gm Hfa.aer.ad 2 PUFF IH BID (Reported) Cetirizine HCl 10 Mg Tablet 10 MG PO DAILY (Reported) Cholecalciferol (Vitamin D3) 1,000 Unit Tablet 1,000 UNIT PO BID (Reported) Empagliflozin 10 Mg Tablet 10 MG PO DAILY (Reported) Fluticasone Propionate 16 Gm [place].susp 1 SPRAY NA DAILY PRN PRN ALLERGIES ( Reported) Fluvoxamine Maleate 150 Mg Cap.er.24h 150 MG PO HS (Reported) Gabapentin 600 Mg Tablet 600 MG PO TID (Reported) Hydrochlorothiazide 25 Mg Tablet 25 MG PO DAILY (Reported) Hydroxyzine HCl 50 Mg Tablet 50 MG PO Q8H PRN PRN ANXIETY (Reported) Ibuprofen 800 Mg Tablet 800 MG PO BID (Reported) Insulin Aspart 300 Units/3 Ml Solution SQ TID (Reported) WILL HOLD IF BS IS 180-200 Metformin HCl 500 Mg Tablet 500 MG PO QID (Reported) Montelukast Sodium 10 Mg Tablet 10 MG PO DAILY (Reported) Mupirocin 22 Gm Oint...g. TP BID (Reported) Omeprazole 20 Mg Capsule.dr 20 MG PO DAILY (Reported) Potassium Gluconate 99 Mg Tablet 99 MG PO DAILY PRN PRN CRAMPS (Reported) Prednisone 10 Mg Tab 10 MG PO DAILY (Reported) Roflumilast 500 Mcg Tablet 500 MCG PO DAILY (Reported) Sulfamethoxazole/Trimethoprim 1 Each Tablet 1 TAB PO BID (Reported) FILLED 11/09/16 #20 FOR A 10 DAY THERAPY Tiotropium [place] 4 Gm Mist.inhal 2 PUFF IH DAILY (Reported) Trazodone HCl 100 Mg Tablet 100 MG PO HS (Reported) Past Sbzojqk-Qwsamm-Wzcmdl Hx Patient Social History Alcohol Use: Denies Use Recreational Drug Use: No Smoking Status: Former Smoker Former smoker/When Quit: Type Used: Cigarettes Physical Abuse Screen: No Sexual Abuse: No Recent Foreign Travel: No Contact w/other who traveled: No Recent Hopitalizations: No ( X 2, ANXIETY ATTACK, DEPRESSION) Recent Infectious Disease Expo: No Immunizations Up To Date Tetanus Booster (TDap): Unknown Date of Pneumonia Vaccine: May 24, 2012 Date of Influenza Vaccine: Sep 29, 2016 Seasonal Allergies Seasonal Allergies: No Surgeries HX Surgeries: Yes (LEFT EYE--LASER REPAIR OF DETACHED RETINA) Surgeries: Section, Eye Surgery, Gallbladder, Tubal Ligation Respiratory Hx Respiratory Disorders: Yes (HOME O2-CHRONIC RESPIRATORY FAILURE, NO VENTILATOR--PER PT) Respiratory Disorders: COPD Cardiovascular Hx Cardiovascular Disorders: Yes Cardiac Disorders: Hypertension Neurological Hx Neurological Disorders: No Reproductive System Hx Reproductive Disorders: No Sexually Transmitted Disease: Yes (HERPES) HIV/AIDS: No 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 Disorders: Denies 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: Tubal Ligation Genitourinary Hx Genitourinary Disorders: No Gastrointestinal Hx Gastrointestinal Disorders: Yes Gastrointestinal Disorders: Gastroesophageal Reflux, Gall Bladder Disease Musculoskeletal Hx Musculoskeletal Disorders: Yes (SHOULDER PAIN ) Musculoskeletal Disorders: Fibromyalgia, Fractures Endocrine Hx Endocrine Disorders: Yes (OBESITY) Endocrine Disorders: Diabetes, Insulin dep HEENT HX ENT Disorders: Yes (L DETACHED RETINA-LASER REPAIR,L EYE IMPAIRED VISION; CHR SORE UNDER TONGUE) Loss of Vision: Denies Hearing Impairment: Denies Cancer Hx Cancer: No Psychosocial Hx Psychiatric Problems: Yes Behavioral Health Disorders: Anxiety, Depression Integumentary HX Skin/Integumentary Disorder: Yes (RASHES, abd folds and beneath her breast bilaterally red) Skin/Integumentary Disorders: Recent Skin Changes, Herpes Blood Transfusions Hx Blood Disorders: No Adverse Reaction to a Blood Tr: No Family Medical History Family Hx: CHF grandmother Diabetes mellitus grandmother FH: CHF (congestive heart failure) History of - respiratory disease 03 FATHER (COPD) Constitutional: malaise weakness other (hematoma large left thigh) EENTM: no symptoms reported Respiratory: short of breath Cardiovascular: no symptoms reported Gastrointestinal: no symptoms reported other (cellulitis of right abdomen upper) Genitourinary: no symptoms reported Physical Exam Vital Signs Vital Sign - Last 12Hours 11/11/16 11/11/16 09:45 11:43 Temp 97.7 Pulse 125 Resp 25 B/P 128/79 Pulse Ox 92 O2 Delivery Nasal Cannula O2 Flow Rate 2 FiO2 35 Capillary Refill : Less Than 3 Seconds General Appearance: No Apparent Distress WD/WN Chronically ill Other ( noncompliance) Eyes: Bilateral Eye Normal Inspection HEENT: Normal ENT Inspection Neck: Full Range of Motion Normal Inspection Non Tender Supple Respiratory: No Accessory Muscle Use No Respiratory Distress Decreased Breath Sounds Other (confusion) Cardiovascular: Regular Rate, Rhythm No Murmur Gastrointestinal: Non Tender Soft Other (right side of the abdomen cellulitis) Extremity: Other (left leg large hematoma) Assessment/Plan Assessment and Plan acute and chronic respiratory failure. COPD. Pneumonia. Cellulitis right side of the abdomen. Large hematoma left side. Anemia. Patient not candidate for blood thinner due to hematoma. Noncompliance. Diabetes Clinical Quality Measures DVT/VTE Risk/Contraindication: Risk Factor Score Per Nursin RFS Level Per Nursing on Admit: 4+=Very High WILVER GARCIA DO Nov 12, 2016 07:50
[2016-11-12 08:00] VITALS: BP 124/79
[2016-11-12] MEDS: DOXYCYCLINE 100 MG/NS 100 ML IVPB IV SCH ×4 (08:07→20:51)
[2016-11-12] MEDS: GABAPENTIN 600 MG (NEURONTIN) TAB PO SCH ×3 (08:07→20:51)
[2016-11-12] MEDS: HYDROCHLOROTHIAZIDE 25 MG (HCTZ) TAB PO SCH (08:07)
[2016-11-12] MEDS: VITAMIN D3 1,000 UNITS (CHOLECALCIFEROL) TABLET PO SCH ×2 (08:08→20:51)
[2016-11-12] MEDS: MONTELUKAST 10 MG (SINGULAIR) TAB PO SCH (08:08)
[2016-11-12] MEDS ORDERED: NON-FORMULARY MEDICATION 1 EA EA (Empagliflozin (Jardiance) 10 MG) PO SCH (09:00)
[2016-11-12] MEDS ORDERED: NON-FORMULARY MEDICATION 1 EA EA (Tiotropium Bromide (Spiriva Respimat) 2 PUFF) IH SCH (09:00)
[2016-11-12] MEDS ORDERED: OMEPRAZOLE 20 MG (PriLOSEC) CAP NON-FORMULARY PO SCH (09:00)
[2016-11-12] MEDS: ROFLUMILAST 500 MCG TAB (DALIRESP) PO SCH (11:55)
[2016-11-12 12:00] VITALS: BP 134/70
[2016-11-12 15:00] VITALS: BP 129/81
[2016-11-12 17:33] LABS: BILIRUBIN,URINE NEGATIVE (NEGATIVE); KETONES,URINE NEGATIVE (NEGATIVE); LEUKOCYTE ESTERASE ,URINE NEGATIVE (NEGATIVE); NITRITE,URINE NEGATIVE (NEGATIVE); PH,URINE 7 (5-9); PROTEIN,URINE 1+ (NEGATIVE); UROBILINOGEN,URINE NORMAL (NORMAL)
[2016-11-12 17:42] LABS: WBC,URINE 0-2 /HPF
[2016-11-12 17:43] LABS: YEAST,URINE FEW /HPF
[2016-11-12 19:20] VITALS: BP 133/81
[2016-11-13] VITALS: BP 135/82
[2016-11-13] MEDS: RT-ALBUTEROL/IPRATROPIUM 3 ML (DUONEB) VIAL INH SCH ×3 (02:34→11:09)
[2016-11-13 04:35] VITALS: BP 106/63
[2016-11-13 05:08] LABS: BASOPHILS % (AUTO) 0 % (0-10); EOSINOPHILS % (AUTO) 0 % (0-10); LYMPHOCYTES # (AUTO) 1.2 X 10^3 (1.0-4.0); LYMPHOCYTES % (AUTO) 6 % (12-44); MEAN CORPUSCULAR HEMOGLOBIN 28 PG (25-34); MEAN CORPUSCULAR HGB CONC 30 G/DL (32-36); MEAN CORPUSCULAR VOLUME 94 FL (80-99); MEAN PLATELET VOLUME 9.9 FL (7.4-10.4); MONOCYTES # (AUTO) 1.3 X 10^3 (0.0-1.0); MONOCYTES % (AUTO) 6 % (0-12); NEUTROPHILS # (AUTO) 19.1 X 10^3 (1.8-7.8); NEUTROPHILS % (AUTO) 88 % (42-75); PLATELET COUNT 426 10^3/uL (130-400); RED BLOOD COUNT 2.92 10^6/uL (4.35-5.85); RED CELL DISTRIBUTION WIDTH 14.9 % (10.0-14.5); WHITE BLOOD COUNT 21.7 10^3/uL (4.3-11.0)
[2016-11-13 05:29] LABS: ALANINE AMINOTRANSFERASE 14 U/L (0-55); ALBUMIN 3.3 G/DL (3.2-4.5); ANION GAP 10 MMOL/L (5-14); ASPARTATE AMINO TRANSFERASE 21 U/L (5-34); BILIRUBIN,TOTAL 0.2 MG/DL (0.1-1.0); BLOOD UREA NITROGEN 28 MG/DL (7-18); BUN/CREATININE RATIO 38; CALCIUM 9.7 MG/DL (8.5-10.1); CARBON DIOXIDE 33 MMOL/L (21-32); CHLORIDE 98 MMOL/L (98-107); CREATININE SERUM 0.74 MG/DL (0.60-1.30); GFR ESTIMATED > 60; GLUCOSE 266 MG/DL (70-105); POTASSIUM 4.5 MMOL/L (3.6-5.0); SODIUM 141 MMOL/L (135-145); TOTAL PROTEIN 6.7 G/DL (6.4-8.2)
[2016-11-13] MEDS: PANTOPRAZOLE 20 MG TABLET (PROTONIX) PO SCH (06:05)
[2016-11-13] MEDS: metFORMIN 500 MG (GLUCOPHAGE) TAB PO SCH ×2 (06:05→12:00)
[2016-11-13] MEDS: CATHETER FLUSH 10 ML SYR IV SCH (06:05)
[2016-11-13] MEDS: inSUlin (REGULAR) HUMAN 1 UNIT/0.01 ML (CHARGE PER UNIT) SC SCH ×2 (06:05→12:00)
--- NOTE | 2016-11-13 06:59 | Pulmonary Progress Note ---
Subjective Subjective/Events-last exam No complications noted. Exam Exam Vital Signs Date Time Temp Pulse Resp B/P Pulse Ox O2 Delivery O2 Flow Rate FiO2 11/13/16 04:35 98.0 113 18 106/63 96 Nasal Cannula 3.00 11/13/16 02:34 98 5.00 11/13/16 01:00 106 11/13/16 00:00 97.3 104 22 135/82 90 Nasal Cannula 5.00 11/12/16 22:53 92 5.00 11/12/16 21:00 High Flow [place] 6.00 11/12/16 19:20 96.8 113 20 133/81 96 High Flow NC 6.00 11/12/16 19:00 118 11/12/16 18:49 5.00 11/12/16 18:45 96 5.00 11/12/16 16:00 96 6.00 11/12/16 15:00 98.2 115 20 129/81 91 High Flow NC 6.00 11/12/16 14:24 95 6.00 11/12/16 13:00 109 11/12/16 13:00 109 11/12/16 12:00 98.5 113 22 134/70 94 Nasal Cannula 6.00 11/12/16 12:00 95 6.00 11/12/16 10:32 92 6.00 11/12/16 09:00 96 High Flow NC 6.00 11/12/16 08:00 98.2 111 20 124/79 94 Nasal Cannula 6.00 11/12/16 08:00 96 6.00 11/12/16 07:00 110 I & O 11/13/16 07:00 Intake Total 1830 ml Output Total 2200 ml Balance -370 ml General Appearance: No Apparent Distress, WD/WN, Chronically ill, Other ( noncompliance) HEENT: Normal ENT Inspection Neck: Full Range of Motion, Normal Inspection, Non Tender, Supple Respiratory: No Accessory Muscle Use, No Respiratory Distress, Decreased Breath Sounds, Other (confusion) Cardiovascular: Regular Rate, Rhythm, No Murmur Capillary Refill: Less Than 3 Seconds Extremity: Other (left leg large hematoma) Neurologic/Psychiatric: No Motor/Sensory Deficits, Other (MENTATION ABOVE) Skin: Normal Color, Warm/Dry, Ecchymosis (MASSIVE BRUISE TO LEFT HIP/THIGH, NOW WITH DEPENDENT TRACKING DOWN TO LOWER LEG. AREA OF CELLULITIS TO RIGHT MID ABDOMEN HAS BECOME SMALLER IN SIZE, AND IS MUCH LESS RED AND LESS INDURATED. NON-TENDER. NO AREAS OF FLUCTUANCE, NO DRAINAGE, NO STREAKS. ) Results Lab Laboratory Tests 11/11/16 10:10 11/12/16 04:19 11/13/16 04:30 Assessment/Plan Assessment/Plan Acute on chronic respiratory failure -BiPAP -SVNS COPDAE -SVNs PNA -continue Rocephin for now -chatman culture -repeat CXR this AM Elevated leukocytosis ? secondary to steroids. No fever await CXR and cultures Morbid obesity Clinical Quality Measures DVT/VTE Risk/Contraindication: Risk Factor Score Per Nursin RFS Level Per Nursing on Admit: 4+=Very High Contraindications-Pharm: Other *list below* LUIZA THOMPSON DO Nov 13, 2016 06:59
[2016-11-13] MEDS: RT-ADVAIR HFA 115/21 MCG PER PUFF IH SCH (07:22)
[2016-11-13] MEDS: UMECLIDINIUM BROMIDE (INCRUSE ELLIPTA) 7'S IH SCH (07:24)
--- NOTE | 2016-11-13 07:45 | Progress Note (SOAP) ---
Subjective Subjective/Events-last exam patient feeling good today. Patient wants to go home. Patient having no problems breathing. Chest x-ray yesterday may show superimposed pneumonia. Waiting for chest x-ray report today area Okay with pulmonology for discharge. Hypercapnia. COPD with acute exacerbation. Noncompliance. Diabetes. Objective Exam Vital Signs Date Time Temp Pulse Resp B/P Pulse Ox O2 Delivery O2 Flow Rate FiO2 11/13/16 07:25 5.00 11/13/16 07:24 96 5.00 11/13/16 04:35 98.0 113 18 106/63 96 Nasal Cannula 3.00 11/13/16 02:34 98 5.00 11/13/16 01:00 106 11/13/16 00:00 97.3 104 22 135/82 90 Nasal Cannula 5.00 11/12/16 22:53 92 5.00 11/12/16 21:00 High Flow NC 6.00 11/12/16 19:20 96.8 113 20 133/81 96 High Flow NC 6.00 11/12/16 19:00 118 11/12/16 18:49 5.00 11/12/16 18:45 96 5.00 11/12/16 16:00 96 6.00 11/12/16 15:00 98.2 115 20 129/81 91 High Flow NC 6.00 11/12/16 14:24 95 6.00 11/12/16 13:00 109 11/12/16 13:00 109 11/12/16 12:00 98.5 113 22 134/70 94 Nasal Cannula 6.00 11/12/16 12:00 95 6.00 11/12/16 10:32 92 6.00 11/12/16 09:00 96 High Flow NC 6.00 11/12/16 08:00 98.2 111 20 124/79 94 Nasal Cannula 6.00 11/12/16 08:00 96 6.00 I & O 11/13/16 07:00 Intake Total 1830 ml Output Total 2200 ml Balance -370 ml Capillary Refill : Less Than 3 Seconds General Appearance: No Apparent Distress WD/WN HEENT: Normal ENT Inspection Neck: Normal Inspection Respiratory: Chest Non Tender No Accessory Muscle Use No Respiratory Distress Decreased Breath Sounds Cardiovascular: Regular Rate, Rhythm No Murmur Gastrointestinal: non tender soft Results Lab Laboratory Tests 11/13/16 04:30 Laboratory Tests 11/12/16 11:43: Glucometer 391H 11/12/16 16:04: Glucometer 325H 11/12/16 17:25: Ur Tricyclic Antidepressants Screen NEGATIVE, Urine Amphetamines Screen NEGATIVE , Urine Bacteria TRACE, Urine Barbiturates Screen NEGATIVE, Urine Benzodiazepines Screen NEGATIVE, Urine Bilirubin NEGATIVE, Urine Cannabinoids Screen NEGATIVE, Urine Casts NONE, Urine Clarity CLEAR, Urine Cocaine Screen NEGATIVE, Urine Color YELLOW, Urine Crystals NONE, Urine Culture Indicated YES, Urine Glucose (UA) 4+H, Urine Ketones NEGATIVE, Urine Leukocyte Esterase NEGATIVE, Urine Methadone Screen NEGATIVE, Urine Methamphetamines Screen NEGATIVE, Urine Mucus NEGATIVE, Urine Nitrite NEGATIVE, Urine Opiates Screen NEGATIVE, Urine Oxycodone Screen NEGATIVE, Urine Phencyclidine Screen NEGATIVE, Urine Propoxyphene Screen NEGATIVE, Urine Protein 1+H, Urine RBC RARE, Urine RBC (Auto) NEGATIVE, Urine Specific [place] 1.010L, Urine Squamous Epithelial Cells 2-5, Urine Urobilinogen NORMAL, Urine WBC 0-2, Urine Yeast FEWH, Urine pH 7 11/12/16 20:42: Glucometer 324H 11/13/16 04:30: Alanine Aminotransferase (ALT/SGPT) 14, Albumin 3.3, Alkaline Phosphatase 84, Anion Gap 10, Aspartate Amino Transf (AST/SGOT) 21, BUN/Creatinine Ratio 38, Basophils # (Auto) 0.0, Basophils (%) (Auto) 0, Blood Urea Nitrogen 28H, Calcium Level 9.7, Carbon Dioxide Level 33H, Chloride Level 98, Creatinine 0.74 , Eosinophils # (Auto) 0.0, Eosinophils (%) (Auto) 0, Estimat Glomerular Filtration Rate > 60, Glucose Level 266H, Hematocrit 28L, Hemoglobin 8.1L, Lymphocytes # (Auto) 1.2, Lymphocytes (%) (Auto) 6L, Mean Corpuscular Hemoglobin 28, Mean Corpuscular Hemoglobin Concent 30L, Mean Corpuscular Volume 94, Mean Platelet Volume 9.9, Monocytes # (Auto) 1.3H, Monocytes (%) (Auto) 6, Neutrophils # (Auto) 19.1H, Neutrophils (%) (Auto) 88H, Platelet Count 426H, Potassium Level 4.5, Red Blood Count 2.92L, Red Cell Distribution Width 14.9H, Sodium Level 141, Total Bilirubin 0.2, Total Protein 6.7, White Blood Count 21.7H 11/13/16 05:22: Glucometer 265H Microbiology 11/11/16 Blood Culture - Preliminary, Resulted No growth 11/11/16 Influenza Types A,B Antigen (BAN) - Final, Complete Assessment/Plan Assessment/Plan Assess & Plan/Chief Complaint acute and chronic respiratory failure. Hypercapnia. Diabetes. Noncompliance. Patient doing good and breathing better. Plan to discharge today Diagnosis/Problems: Clinical Quality Measures DVT/VTE Risk/Contraindication: Risk Factor Score Per Nursin RFS Level Per Nursing on Admit: 4+=Very High Contraindications-Pharm: Other *list below* TEMITOPE GARCIA DO Nov 13, 2016 07:45
[2016-11-13 08:00] VITALS: BP 109/58
[2016-11-13] MEDS: HYDROCHLOROTHIAZIDE 25 MG (HCTZ) TAB PO SCH (08:55)
[2016-11-13] MEDS: MONTELUKAST 10 MG (SINGULAIR) TAB PO SCH (08:55)
[2016-11-13] MEDS: VITAMIN D3 1,000 UNITS (CHOLECALCIFEROL) TABLET PO SCH (08:55)
[2016-11-13] MEDS: GABAPENTIN 600 MG (NEURONTIN) TAB PO SCH ×2 (08:55→12:00)
[2016-11-13] MEDS: ROFLUMILAST 500 MCG TAB (DALIRESP) PO SCH (08:55)
[2016-11-13] MEDS ORDERED: CEFD300C3 PO (10:41)
--- NOTE | 2016-11-13 12:21 | Diagnostic Imaging Report ---
PA and lateral chest at 7:18 AM. INDICATION: Respiratory distress. Both the heart and the central pulmonary vascularity do seem somewhat less prominent than noted on the prior exam of 11/11/2016; however, there is still an area of increased density in the right infrahilar region. A very small area of increased density has also developed in the periphery of the right lower lobe. This may be related to a small focus of pneumonia/atelectasis. The right upper lung and left lung are generally clear. The mediastinum is not widened. The osseous structures are intact. IMPRESSION: The appearance of the chest has improved somewhat as there does seem to be less pulmonary congestion. There is still involvement of the right lung base by pneumonia/atelectasis, however. A followup exam would be recommended for continued evaluation. Dictated by: Dictated on workstation # [id number]
--- NOTE | 2016-11-13 13:07 | Physician Query ---
PQ-Conflicting Diagnosis Admission/Discharge Admission Date: Nov 11, 2016 at 11:43 Discharge Date: Nov 13, 2016 at 12:15 he medical record reflects the following clinical scenario: History/Risk Factors: Acute on chronic respiratory failure and Pneumonia. Clinical Findings: Altered mental status, WBC 19, pulse 125,resp 25, lactic acid 0.6 Treatment: IV Ceftriaxone Sodium 1,000mg/Sodium Chloride and IV Doxycycline hyclate 100mg/ Sodium Chloride. Question: Do you agree with the diagnosis of sepsis per Dr. Rg?. Please document a response below. Do you agree w/Consulting Dx?: Yes In responding to this query, please exercise your independent professional judgment. The purpose of this communication is to more accurately reflect the complexity of your patients condition. The fact that a question is asked does not imply that any particular answer is desired or expected. Thank you for your timely response to this clarification. Requestors name: Kelly Ashlyn Phone # [phone] THIS PHYSICIAN QUERY FORM IS A PERMANENT PART OF THE MEDICAL RECORD KELLY OSBORNE Nov 13, 2016 13:07 TEMITOPE GARCIA DO Nov 14, 2016 07:10
[2016-11-17 11:06] LABS: BENZODIAZEPINES SCREEN BLOOD Negative; SALICYLATE SCREEN BLOOD Negative; SERUM (BLOOD) DRUG SCREEN Negative; TRICYCLICS SCREEN BLOOD Negative
--- NOTE | 2016-11-18 07:19 | Discharge Summary ---
Diagnosis/Chief Complaint Date of Admission Nov 11, 2016 at 11:43 Date of Discharge Nov 13, 2016 at 12:15 Discharge Date: Nov 13, 2016 Admission Diagnosis Admission Diagnosis acute and chronic respiratory failure. COPD. Pneumonia. Cellulitis right side of the abdomen. Large hematoma left side. Anemia. Patient not candidate for blood thinner due to hematoma. Noncompliance. Diabetes Discharge Diagnosis sepsis, unspecified organism. Chronic obstructive pulmonary disease with acute exacerbation. Pneumonia. Acute and chronic respiratory failure. Cellulitis of abdominal wall. Body mass index 40/44.9. Unspecified asthma. Sleep apnea. Hypertension. Type II diabetes. Morbid obesity. Major depressive disorder. GERD. Reason Hospital Visit patient was brought in by mother to the office yesterday. Patient was confused and was unable to answer questions. Patient has not been using her oxygen. Patient was also not using her BiPAP at times. Patient is noncompliant Patient has COPD and diabetes. Patient sent out to the emergency room. Chest x-ray shows superimposed pneumonia Arterial blood gas shows PCO2 of 80. Patient admitted Discharge Summary Consultations pulmonology Discharge Physical Examination Allergies: Coded Allergies: codeine (Verified Allergy, Intermediate, hives, 05/14/16) Vitals & I&Os Vital Signs Date Time Temp Pulse Resp B/P Pulse Ox O2 Delivery O2 Flow Rate FiO2 11/13/16 12:15 11/13/16 11:09 95 5.00 11/13/16 08:57 Nasal Cannula 11/13/16 08:00 96.7 118 16 11/12/16 04:00 35 Hospital Course patient in hospital felt better. Patient wanted to go home Labs (last 24 hrs) Laboratory Tests 11/11/16 10:10: Activated Partial Thromboplast Time 29, Alanine Aminotransferase (ALT/SGPT) 13, Albumin 3.8, Alkaline Phosphatase 89, Ammonia 43H, Anion Gap 14, Aspartate Amino Transf (AST/SGOT) 11, BUN/Creatinine Ratio 16, Band Neutrophils 0, Basophils # (Auto) 0.0, Basophils % (Manual) 0, Basophils (%) (Auto) 0, Blood Urea Nitrogen 10, Calcium Level 9.1, Carbon Dioxide Level 33H, Chloride Level 93L, Creatinine 0.63, Eosinophils # (Auto) 0.2, Eosinophils % (Manual) 2, Eosinophils (%) (Auto) 1, Estimat Glomerular Filtration Rate > 60, Glucose Level 136H, Hematocrit 31L, Hemoglobin 8.8L, Hypochromasia MODERATE, INR Comment 1.0, Lactic Acid Level 0.6, Lymphocytes # (Auto) 1.3, Lymphocytes % ( Manual) 3, Lymphocytes (%) (Auto) 7L, Magnesium Level 2.0, Mean Corpuscular Hemoglobin 28, Mean Corpuscular Hemoglobin Concent 28L, Mean Corpuscular Volume 97, Mean Platelet Volume 9.5, Monocytes # (Auto) 1.0, Monocytes % (Manual) 4, Monocytes (%) (Auto) 5, Neutrophils # (Auto) 16.5H, Neutrophils % (Manual) 91, Neutrophils (%) (Auto) 87H, Platelet Count 364, Poikilocytosis SLIGHT, Polychromasia SLIGHT, Potassium Level 4.4, Prothrombin Time 12.9, Red Blood Count 3.20L, Red Cell Distribution Width 14.5, Serum Alcohol < 10, Sodium Level 140, Stomatocytes MARKED, TSH Antelope Testing 0.89, Total Bilirubin 0.3, Total Protein 6.9, White Blood Count 19.0H 11/11/16 11:04: Low Test YES-POS, Arterial Blood Base Excess 8.0H, Arterial Blood HCO3 37H, Arterial Blood Oxygen Saturation 95, Arterial Blood Partial Pressure CO2 80*H, Arterial Blood Partial Pressure O2 74L, Arterial Blood Total CO2 39.1H, Arterial Blood pH 7.28*L, Blood Gas Inspired Oxygen 4, Blood Gas Patient Temperature 96.9, Blood Gas Puncture Site L BRACH, Blood Gas Ventilator Setting NO 11/11/16 16:08: Glucometer 199H 11/11/16 20:57: Glucometer 347H 11/12/16 04:19: Acetaminophen Screen Negative, Alanine Aminotransferase (ALT/SGPT) 14, Albumin 3.5, Alkaline Phosphatase 85, Anion Gap 12, Aspartate Amino Transf (AST/SGOT) 11 , BUN/Creatinine Ratio 27, Basophils # (Auto) 0.0, Basophils (%) (Auto) 0, Blood Barbiturates Screen Negative, Blood Benzodiazepines Screen Negative, Blood Drug Screen Comment Negative, Blood Urea Nitrogen 21H, Calcium Level 9.3, Carbon Dioxide Level 33H, Chloride Level 94L, Creatinine 0.79, Eosinophils # ( Auto) 0.0, Eosinophils (%) (Auto) 0, Estimat Glomerular Filtration Rate > 60, Glucose Level 320H, Hematocrit 28L, Hemoglobin 8.2L, Lymphocytes # (Auto) 0.6L, Lymphocytes (%) (Auto) 5L, Mean Corpuscular Hemoglobin 27, Mean Corpuscular Hemoglobin Concent 29L, Mean Corpuscular Volume 93, Mean Platelet Volume 9.7, Monocytes # (Auto) 0.1, Monocytes (%) (Auto) 1, Neutrophils # (Auto) 11.8H, Neutrophils (%) (Auto) 95H, Plasma/Serum Blood Alcohol Negative, Platelet Count 411H, Potassium Level 4.3, Red Blood Count 3.04L, Red Cell Distribution Width 14.6H, Salicylates Screen Negative, Smear Scan YES, Sodium Level 139, Total Bilirubin 0.3, Total Protein 6.6, Tricyclic Antidepressants Screen Negative, White Blood Count 12.4H 11/12/16 11:43: Glucometer 391H 11/12/16 16:04: Glucometer 325H 11/12/16 17:25: Ur Tricyclic Antidepressants Screen NEGATIVE, Urine Amphetamines Screen NEGATIVE , Urine Bacteria TRACE, Urine Barbiturates Screen NEGATIVE, Urine Benzodiazepines Screen NEGATIVE, Urine Bilirubin NEGATIVE, Urine Cannabinoids Screen NEGATIVE, Urine Casts NONE, Urine Clarity CLEAR, Urine Cocaine Screen NEGATIVE, Urine Color YELLOW, Urine Crystals NONE, Urine Culture Indicated YES, Urine Glucose (UA) 4+H, Urine Ketones NEGATIVE, Urine Leukocyte Esterase NEGATIVE, Urine Methadone Screen NEGATIVE, Urine Methamphetamines Screen NEGATIVE, Urine Mucus NEGATIVE, Urine Nitrite NEGATIVE, Urine Opiates Screen NEGATIVE, Urine Oxycodone Screen NEGATIVE, Urine Phencyclidine Screen NEGATIVE, Urine Propoxyphene Screen NEGATIVE, Urine Protein 1+H, Urine RBC RARE, Urine RBC (Auto) NEGATIVE, Urine Specific Jadwin 1.010L, Urine Squamous Epithelial Cells 2-5, Urine Urobilinogen NORMAL, Urine WBC 0-2, Urine Yeast FEWH, Urine pH 7 11/12/16 20:42: Glucometer 324H 11/13/16 04:30: Alanine Aminotransferase (ALT/SGPT) 14, Albumin 3.3, Alkaline Phosphatase 84, Anion Gap 10, Aspartate Amino Transf (AST/SGOT) 21, BUN/Creatinine Ratio 38, Basophils # (Auto) 0.0, Basophils (%) (Auto) 0, Blood Urea Nitrogen 28H, Calcium Level 9.7, Carbon Dioxide Level 33H, Chloride Level 98, Creatinine 0.74 , Eosinophils # (Auto) 0.0, Eosinophils (%) (Auto) 0, Estimat Glomerular Filtration Rate > 60, Glucose Level 266H, Hematocrit 28L, Hemoglobin 8.1L, Lymphocytes # (Auto) 1.2, Lymphocytes (%) (Auto) 6L, Mean Corpuscular Hemoglobin 28, Mean Corpuscular Hemoglobin Concent 30L, Mean Corpuscular Volume 94, Mean Platelet Volume 9.9, Monocytes # (Auto) 1.3H, Monocytes (%) (Auto) 6, Neutrophils # (Auto) 19.1H, Neutrophils (%) (Auto) 88H, Platelet Count 426H, Potassium Level 4.5, Red Blood Count 2.92L, Red Cell Distribution Width 14.9H, Sodium Level 141, Total Bilirubin 0.2, Total Protein 6.7, White Blood Count 21.7H 11/13/16 05:22: Glucometer 265H 11/13/16 11:29: Glucometer 227H Microbiology 11/11/16 Blood Culture - Final, Complete No growth 11/11/16 Influenza Types A,B Antigen (BAN) - Final, Complete 11/12/16 Urine Culture - Final, Complete Enterococcus Faecalis Presumptive Adelina Albicans Staph, Coag Neg (Nephrologist) Laboratory Tests 11/11/16 10:10 11/12/16 04:19 11/13/16 04:30 Pending Labs Microbiology Date/Time Source Procedure Growth Status 11/11/16 10:30 Peripheral Lt Ac Blood Culture - Final No growth Complete 11/11/16 10:10 Peripheral Right Wrist Blood Culture - Final No growth Complete 11/11/16 11:56 Nasopharynx Influenza Types A,B Antigen (BAN) - Final Complete 11/12/16 17:25 Urine Clean Catch Urine Culture - Final Enterococcus Faecalis Presumptive Adelina Albicans Staph, Coag Neg (Nephrologist) Complete Laboratory Tests 11/11/16 10:10: Activated Partial Thromboplast Time 29, Alanine Aminotransferase (ALT/SGPT) 13, Albumin 3.8, Alkaline Phosphatase 89, Ammonia 43, Anion Gap 14, Aspartate Amino Transf (AST/SGOT) 11, BUN/Creatinine Ratio 16, Band Neutrophils 0, Basophils # ( Auto) 0.0, Basophils % (Manual) 0, Basophils (%) (Auto) 0, Blood Urea Nitrogen 10, Calcium Level 9.1, Carbon Dioxide Level 33, Chloride Level 93, Creatinine 0.63, Eosinophils # (Auto) 0.2, Eosinophils % (Manual) 2, Eosinophils (%) (Auto ) 1, Estimat Glomerular Filtration Rate > 60, Glucose Level 136, Hematocrit 31, Hemoglobin 8.8, Hypochromasia MODERATE, INR Comment 1.0, Lactic Acid Level 0.6, Lymphocytes # (Auto) 1.3, Lymphocytes % (Manual) 3, Lymphocytes (%) (Auto) 7, Magnesium Level 2.0, Mean Corpuscular Hemoglobin 28, Mean Corpuscular Hemoglobin Concent 28, Mean Corpuscular Volume 97, Mean Platelet Volume 9.5, Monocytes # (Auto) 1.0, Monocytes % (Manual) 4, Monocytes (%) (Auto) 5, Neutrophils # (Auto) 16.5, Neutrophils % (Manual) 91, Neutrophils (%) (Auto) 87 , Platelet Count 364, Poikilocytosis SLIGHT, Polychromasia SLIGHT, Potassium Level 4.4, Prothrombin Time 12.9, Red Blood Count 3.20, Red Cell Distribution Width 14.5, Serum Alcohol < 10, Sodium Level 140, Stomatocytes MARKED, TSH Antelope Testing 0.89, Total Bilirubin 0.3, Total Protein 6.9, White Blood Count 19.0 11/11/16 11:04: Low Test YES-POS, Arterial Blood Base Excess 8.0, Arterial Blood HCO3 37, Arterial Blood Oxygen Saturation 95, Arterial Blood Partial Pressure CO2 80, Arterial Blood Partial Pressure O2 74, Arterial Blood Total CO2 39.1, Arterial Blood pH 7.28, Blood Gas Inspired Oxygen 4, Blood Gas Patient Temperature 96.9, Blood Gas Puncture Site L [facility], Blood Gas Ventilator Setting NO 11/11/16 16:08: Glucometer 199 11/11/16 20:57: Glucometer 347 11/12/16 04:19: Acetaminophen Screen Negative, Alanine Aminotransferase (ALT/SGPT) 14, Albumin 3.5, Alkaline Phosphatase 85, Anion Gap 12, Aspartate Amino Transf (AST/SGOT) 11 , BUN/Creatinine Ratio 27, Basophils # (Auto) 0.0, Basophils (%) (Auto) 0, Blood Barbiturates Screen Negative, Blood Benzodiazepines Screen Negative, Blood Drug Screen Comment Negative, Blood Urea Nitrogen 21, Calcium Level 9.3, Carbon Dioxide Level 33, Chloride Level 94, Creatinine 0.79, Eosinophils # (Auto ) 0.0, Eosinophils (%) (Auto) 0, Estimat Glomerular Filtration Rate > 60, Glucose Level 320, Hematocrit 28, Hemoglobin 8.2, Lymphocytes # (Auto) 0.6, Lymphocytes (%) (Auto) 5, Mean Corpuscular Hemoglobin 27, Mean Corpuscular Hemoglobin Concent 29, Mean Corpuscular Volume 93, Mean Platelet Volume 9.7, Monocytes # (Auto) 0.1, Monocytes (%) (Auto) 1, Neutrophils # (Auto) 11.8, Neutrophils (%) (Auto) 95, Plasma/Serum Blood Alcohol Negative, Platelet Count 411, Potassium Level 4.3, Red Blood Count 3.04, Red Cell Distribution Width 14.6 , Salicylates Screen Negative, Smear Scan YES, Sodium Level 139, Total Bilirubin 0.3, Total Protein 6.6, Tricyclic Antidepressants Screen Negative, White Blood Count 12.4 11/12/16 11:43: Glucometer 391 11/12/16 16:04: Glucometer 325 11/12/16 17:25: Ur Tricyclic Antidepressants Screen NEGATIVE, Urine Amphetamines Screen NEGATIVE , Urine Bacteria TRACE, Urine Barbiturates Screen NEGATIVE, Urine Benzodiazepines Screen NEGATIVE, Urine Bilirubin NEGATIVE, Urine Cannabinoids Screen NEGATIVE, Urine Casts NONE, Urine Clarity CLEAR, Urine Cocaine Screen NEGATIVE, Urine Color YELLOW, Urine Crystals NONE, Urine Culture Indicated YES, Urine Glucose (UA) 4+, Urine Ketones NEGATIVE, Urine Leukocyte Esterase NEGATIVE , Urine Methadone Screen NEGATIVE, Urine Methamphetamines Screen NEGATIVE, Urine Mucus NEGATIVE, Urine Nitrite NEGATIVE, Urine Opiates Screen NEGATIVE, Urine Oxycodone Screen NEGATIVE, Urine Phencyclidine Screen NEGATIVE, Urine Propoxyphene Screen NEGATIVE, Urine Protein 1+, Urine RBC RARE, Urine RBC (Auto ) NEGATIVE, Urine Specific Jadwin 1.010, Urine Squamous Epithelial Cells 2-5, Urine Urobilinogen NORMAL, Urine WBC 0-2, Urine Yeast FEW, Urine pH 7 11/12/16 20:42: Glucometer 324 11/13/16 04:30: Alanine Aminotransferase (ALT/SGPT) 14, Albumin 3.3, Alkaline Phosphatase 84, Anion Gap 10, Aspartate Amino Transf (AST/SGOT) 21, BUN/Creatinine Ratio 38, Basophils # (Auto) 0.0, Basophils (%) (Auto) 0, Blood Urea Nitrogen 28, Calcium Level 9.7, Carbon Dioxide Level 33, Chloride Level 98, Creatinine 0.74, Eosinophils # (Auto) 0.0, Eosinophils (%) (Auto) 0, Estimat Glomerular Filtration Rate > 60, Glucose Level 266, Hematocrit 28, Hemoglobin 8.1, Lymphocytes # (Auto) 1.2, Lymphocytes (%) (Auto) 6, Mean Corpuscular Hemoglobin 28, Mean Corpuscular Hemoglobin Concent 30, Mean Corpuscular Volume 94, Mean Platelet Volume 9.9, Monocytes # (Auto) 1.3, Monocytes (%) (Auto) 6, Neutrophils # (Auto) 19.1, Neutrophils (%) (Auto) 88, Platelet Count 426, Potassium Level 4.5, Red Blood Count 2.92, Red Cell Distribution Width 14.9, Sodium Level 141, Total Bilirubin 0.2, Total Protein 6.7, White Blood Count 21.7 11/13/16 05:22: Glucometer 265 11/13/16 11:29: Glucometer 227 Radiology Reviewed chest x-ray pneumonia. CAT scan of the head no acute process Discharge Home Medications: Active Scripts Active Cefdinir 300 Mg Capsule 300 Mg PO BID Reported Spiriva Respimat (Tiotropium [place]) 4 Gm Mist.inhal 1 Puff IH DAILY Jardiance (Empagliflozin) 10 Mg Tablet 10 Mg PO DAILY Ibuprofen 800 Mg Tablet 800 Mg PO BID Prednisone 10 Mg Tab 10 Mg PO DAILY Daliresp (Roflumilast) 500 Mcg Tablet 500 Mcg PO DAILY Gabapentin 600 Mg Tablet 600 Mg PO TID Montelukast Sodium 10 Mg Tablet 10 Mg PO DAILY Trazodone HCl 100 Mg Tablet 100 Mg PO HS Fluvoxamine Maleate ER (Fluvoxamine Maleate) 150 Mg Cap.er.24h 150 Mg PO HS Mupirocin 22 Gm Oint...g. TP BID Novolog Flexpen (Insulin Aspart) 300 Units/3 Ml Solution SQ TID WILL HOLD IF BS IS 180-200 Fluticasone Propionate 16 Gm Garfield.susp 1 [place]field NA DAILY PRN Cetirizine HCl 10 Mg Tablet 10 Mg PO DAILY Alprazolam 0.5 Mg Tablet 0.5 Mg PO BID Potassium (Potassium Gluconate) 99 Mg Tablet 99 Mg PO DAILY PRN Symbicort 160-4.5 Mcg Inhaler (Budesonide/Formoterol Fumarate) 10.2 Gm Hfa.aer.ad 2 Puff IH BID Metformin HCl 500 Mg Tablet 500 Mg PO QID Proair Hfa (Albuterol Sulfate) 8.5 Gm Hfa.aer.ad 2 Puff INH Q4H PRN Hydrochlorothiazide 25 Mg Tablet 25 Mg PO DAILY Omeprazole 20 Mg Capsule.dr 20 Mg PO DAILY Hydroxyzine HCl 50 Mg Tablet 50 Mg PO Q8H PRN Vitamin D3 (Cholecalciferol (Vitamin D3)) 1,000 Unit Tablet 1,000 Unit PO BID Duoneb Rt (Albuterol/Ipratropium) 3 Ml Nebu 3 Ml NEB QID PRN Instructions to patient/family Please see electonic discharge instructions given to patient. Clinical Quality Measures DVT/VTE Risk/Contraindication: Risk Factor Score Per Nursin RFS Level Per Nursing on Admit: 4+=Very High Contraindications-Pharm: Other *list below* TEMITOPE GARCIA DO Nov 18, 2016 07:19
== END 2016-11-13 12:15 | disposition home or self-care (01) | DRG 871 ==
LOC: EDUNIT# 09:36 → ER 09:38 → CSD 11:43 → ICU 11-12 03:28 → 4TH 11-12 14:46
PROVIDERS: ADMIT Family Medicine; ATTEND Family Medicine
DX: A41.9 Sepsis, unspecified organism (principal); J44.0 Chronic obstructive pulmonary disease with (acute) lower respiratory infection; J18.9 Pneumonia, unspecified organism; J96.22 Acute and chronic respiratory failure with hypercapnia; J44.1 Chronic obstructive pulmonary disease with (acute) exacerbation; L03.311 Cellulitis of abdominal wall; Z68.41 Body mass index [BMI] 40.0-44.9, adult; J45.909 Unspecified asthma, uncomplicated; G47.30 Sleep apnea, unspecified; I10 Essential (primary) hypertension; E11.9 Type 2 diabetes mellitus without complications; E66.01 Morbid (severe) obesity due to excess calories; F41.9 Anxiety disorder, unspecified; F32.9 Major depressive disorder, single episode, unspecified; K21.9 Gastro-esophageal reflux disease without esophagitis; M79.7 Fibromyalgia; D64.9 Anemia, unspecified; A60.09 Herpesviral infection of other urogenital tract; Z87.891 Personal history of nicotine dependence; Z91.19 Patient's noncompliance with other medical treatment and regimen
CPT/HCPCS: 36415; 70450; 71020; 80053; 80306; 80307; 80320; 81000; 82140; 82805; 82962; 83605; 83735; 84443; 85007; 85025; 85027; 85610; 85730; 87040; 87077; 87088; 87186; 87804; 93041; 94640; 94660; 94760; 96365; 96375

== ENCOUNTER 2016-11-20 13:17 | Emergency (ER) | payer MEDICARE, MEDICAID ==
[~2016-11-20 13:17] MED LIST changes: +EMPA10TA PO; +GABA600T2 PO; +MUPI22OI2 TP; +TIOT4MIS2 IH; +TRAZ100T92 PO; +[UNRECOGNIZED DRUG - CODE] PO
[2016-11-26] MEDS ORDERED: NALOXONE 2 MG/2 ML (NARCAN) SYR ONE (19:21)
== END 2016-11-20 14:44 | disposition left against medical advice (07) ==
LOC: EDUNIT# 13:17 → ER 13:19
DX: S30.861A Insect bite (nonvenomous) of abdominal wall, initial encounter (principal); Z53.21 Procedure and treatment not carried out due to patient leaving prior to being seen by health care provider

== ENCOUNTER 2017-03-20 11:25 | Emergency (ER) | payer MEDICARE, MEDICAID ==
[~2017-03-20] VITALS: Ht 157.5 cm; Wt 109.8 kg
[2017-03-20] MEDS ORDERED: morphine INJ 10 MG/ML 1ML (SYR OR VIAL) IV STA (11:35)
--- NOTE | 2017-03-20 11:35 | ED Chest Pain ---
General Stated Complaint: CP AND ABCK PAIN Source: patient, old records Exam Limitations: no limitations History of Present Illness Time seen by provider: 11:27 Initial Comments Patient presents with pain started around 5:00 this morning in the middle of her chest deep and radiated towards her back and felt like flaming. States she' s not had this pain before she has a family history of father and grandparents with heart disease however she herself does not have a history of heart disease. She has COPD for which she is on 5 L of oxygen. She states she has some shortness of breath above baseline but still on 5 L home. She is on aspirin and she took tablet this morning. She denies blood pressure or thyroid disease. She denies a cough above baseline or any wheezing. She took her inhalers this morning. She reports she had a catheter in her right femoral a few months back but was told it was nothing to worry about. Patient reports that this week she started her outpatient pulmonary rehabilitation and she was having a fast heart rate and had to discontinue her treadmill workout and rest for several minutes before resuming. Allergies and Home Medications Allergies Coded Allergies: codeine (Verified Allergy, Intermediate, hives, 05/14/16) Home Medications Albuterol Sulfate 8.5 Gm Hfa.aer.ad, 2 PUFF INH Q4H PRN for SHORTNESS OF BREATH, (Reported) Albuterol/Ipratropium 3 Ml Nebu, 3 ML NEB QID PRN for SHORTNESS OF BREATH, ( Reported) Alprazolam 0.5 Mg Tablet, 0.5 MG PO BID, (Reported) Budesonide/Formoterol Fumarate 10.2 Gm Hfa.aer.ad, 2 PUFF IH BID, (Reported) Cetirizine HCl 10 Mg Tablet, 10 MG PO DAILY, (Reported) Cholecalciferol (Vitamin D3) 1,000 Unit Tablet, 1,000 UNIT PO BID, (Reported) Empagliflozin 10 Mg Tablet, 10 MG PO DAILY, (Reported) Fluticasone Propionate 16 Gm [place].susp, 1 SPRAY NA DAILY PRN for ALLERGIES, ( Reported) Fluvoxamine Maleate 150 Mg Cap.er.24h, 150 MG PO HS, (Reported) Gabapentin 600 Mg Tablet, 600 MG PO TID, (Reported) Hydrochlorothiazide 25 Mg Tablet, 25 MG PO DAILY, (Reported) Hydroxyzine HCl 50 Mg Tablet, 50 MG PO Q8H PRN for ANXIETY, (Reported) Ibuprofen 800 Mg Tablet, 800 MG PO BID, (Reported) Insulin Aspart 300 Units/3 Ml Solution, SQ TID, (Reported) WILL HOLD IF BS IS 180-200 Metformin HCl 500 Mg Tablet, 500 MG PO QID, (Reported) Montelukast Sodium 10 Mg Tablet, 10 MG PO DAILY, (Reported) Mupirocin 22 Gm Oint...g., TP BID, (Reported) Omeprazole 20 Mg Capsule.dr, 20 MG PO DAILY, (Reported) Potassium Gluconate 99 Mg Tablet, 99 MG PO DAILY PRN for CRAMPS, (Reported) Prednisone 10 Mg Tab, 10 MG PO DAILY, (Reported) Roflumilast 500 Mcg Tablet, 500 MCG PO DAILY, (Reported) Tiotropium [place] 4 Gm Mist.inhal, 1 PUFF IH DAILY, (Reported) Trazodone HCl 100 Mg Tablet, 100 MG PO HS, (Reported) Review of Systems Constitutional: No chills, No diaphoresis Respiratory: Cough (chronic), Shortness of Air (chronic), Denies Wheezing Cardiovascular: See HPI, Denies Edema, Denies Irregular Heart Rate, Denies Lightheadedness, Denies Palpitations, Denies Syncope Gastrointestinal: Denies Abdomen Distended, Denies Abdominal Pain, Denies Diarrhea, Denies Nausea Genitourinary: Denies Burning, Denies Discharge Musculoskeletal: see HPI, No back pain, No joint pain Skin: No pruritus, No rash Past Nqezaqz-Yhpihe-Rzbvnu Hx Patient Social History Alcohol Use: Denies Use Recreational Drug Use: No Smoking Status: Former Smoker (quit 2010) Type Used: Cigarettes Recent Foreign Travel: No Contact w/Someone Who Travel: No Recent Hopitalizations: No ( X 2, ANXIETY ATTACK, DEPRESSION) Immunizations Up To Date Tetanus Booster (TDap): Unknown PED Vaccines UTD: No Date of Pneumonia Vaccine: May 24, 2012 Date of Influenza Vaccine: Sep 29, 2016 Seasonal Allergies Seasonal Allergies: No Surgeries HX Surgeries: Yes (LEFT EYE--LASER REPAIR OF DETACHED RETINA) Surgeries: Section, Eye Surgery, Gallbladder, Tubal Ligation Respiratory Hx Respiratory Disorders: Yes (HOME O2-CHRONIC RESPIRATORY FAILURE, NO VENTILATOR--PER PT) Respiratory Disorders: Asthma, Pneumonia, Chronic Bronchitis, Sleep Apnea, COPD , Emphysema Cardiovascular Hx Cardiac Disorders: Yes Cardiac Disorders: Hypertension Neurological Hx Neurological Disorders: No Reproductive System Hx Reproductive Disorders: No Sexually Transmitted Disease: Yes (HERPES) HIV/AIDS: No 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 Genitourinary Hx Genitourinary Disorders: No Gastrointestinal Hx Gastrointestinal Disorders: Yes Gastrointestinal Disorders: Gastroesophageal Reflux, Gall Bladder Disease Musculoskeletal Hx Musculoskeletal Disorders: Yes (SHOULDER PAIN ) Musculoskeletal Disorders: Fibromyalgia, Fractures Endocrine Hx Endocrine Disorders: Yes (OBESITY) Endocrine Disorders: Diabetes, Insulin dep HEENT HX ENT Disorders: Yes (L DETACHED RETINA-LASER REPAIR,L EYE IMPAIRED VISION; CHR SORE UNDER TONGUE) Loss of Vision: Denies Hearing Impairment: Denies Cancer Hx Cancer: No Psychosocial Hx Psychiatric Problems: Yes Behavioral Health Disorders: Anxiety, Depression Integumentary HX Skin/Integumentary Disorder: Yes (RASHES, abd folds and beneath her breast bilaterally red) Skin/Integumentary Disorders: Recent Skin Changes, Herpes Blood Transfusions Hx Blood Disorders: No Adverse Reaction to a Blood Tr: No Family Medical History Family Medial History: CHF grandmother Diabetes mellitus grandmother FH: CHF (congestive heart failure) History of - respiratory disease 03 FATHER (COPD) Physical Exam Vital Signs Vital Sign - Last 12Hours 03/20/17 11:30 Pulse Ox 98 O2 Delivery Nasal Cannula O2 Flow Rate 5.00 Capillary Refill : General Appearance: WD/WN, Anxious, Mild Distress, Obese HEENT: PERRL/EOMI, Pharynx Normal Neck: Non Tender, Supple Respiratory: Chest Non Tender, Lungs Clear, Normal Breath Sounds, No Accessory Muscle Use, No Respiratory Distress Cardiovascular: Regular Rate, Rhythm (tachy), No Edema, No Gallop, No Murmur, Normal Peripheral Pulses, Other (capillary refill less than 3 seconds) Gastrointestinal: Normal Bowel Sounds, Non Tender, Soft Extremity: Normal Capillary Refill, Normal Inspection, Non Tender, No Calf Tenderness, No Pedal Edema Neurologic/Psychiatric: Alert, Oriented x3, Normal Mood/Affect Skin: Normal Color, Warm/Dry Lymphatic: No Adenopathy Progress/Results/Core Measures Results/Orders Lab Results Laboratory Tests Test 03/20/17 11:30 03/20/17 14:15 Range/Units White Blood Count 11.7 H 4.3-11.0 10^3/uL Red Blood Count 4.13 L 4.35-5.85 10^6/uL Hemoglobin 10.8 L 11.5-16.0 G/DL Hematocrit 36 35-52 % Mean Corpuscular Volume 87 80-99 FL Mean Corpuscular Hemoglobin 26 25-34 PG Mean Corpuscular Hemoglobin Concent 30 L 32-36 G/DL Red Cell Distribution Width 15.1 H 10.0-14.5 % Platelet Count 331 130-400 10^3/uL Mean Platelet Volume 9.9 7.4-10.4 FL Neutrophils (%) (Auto) 72 42-75 % Lymphocytes (%) (Auto) 16 12-44 % Monocytes (%) (Auto) 7 0-12 % Eosinophils (%) (Auto) 5 0-10 % Basophils (%) (Auto) 0 0-10 % Neutrophils # (Auto) 8.4 H 1.8-7.8 X 10^3 Lymphocytes # (Auto) 1.9 1.0-4.0 X 10^3 Monocytes # (Auto) 0.8 0.0-1.0 X 10^3 Eosinophils # (Auto) 0.6 H 0.0-0.3 10^3/uL Basophils # (Auto) 0.1 0.0-0.1 10^3/uL Prothrombin Time 12.0 L 12.2-14.7 SEC INR Comment 0.9 0.8-1.4 Activated Partial Thromboplast Time 24 24-35 SEC D-Dimer 0.30 0.00-0.49 UG/ML Sodium Level 139 135-145 MMOL/L Potassium Level 4.4 3.6-5.0 MMOL/L Chloride Level 101 98-107 MMOL/L Carbon Dioxide Level 22 21-32 MMOL/L Anion Gap 16 H 5-14 MMOL/L Blood Urea Nitrogen 14 7-18 MG/DL Creatinine 1.04 0.60-1.30 MG/DL Estimat Glomerular Filtration Rate 58 BUN/Creatinine Ratio 13 Glucose Level 380 H 70-105 MG/DL Calcium Level 8.8 8.5-10.1 MG/DL Magnesium Level 2.2 1.8-2.4 MG/DL Total Bilirubin 0.2 0.1-1.0 MG/DL Aspartate Amino Transf (AST/SGOT) 15 5-34 U/L Alanine Aminotransferase (ALT/SGPT) 16 0-55 U/L Alkaline Phosphatase 91 40-136 U/L Myoglobin 28.7 10.0-92.0 NG/ML Troponin I < 0.30 < 0.30 <0.30 NG/ML Total Protein 7.0 6.4-8.2 GM/DL Albumin 3.9 3.2-4.5 GM/DL My Orders Orders - MARIAH LAI Cbc With Automated Diff (03/20/17 11:35) Magnesium (03/20/17 11:35) Chest 1 View, Ap/Pa Only (03/20/17 11:35) Ekg Tracing (03/20/17 11:35) Cardiac Profile 1 (03/20/17 11:35) Comprehensive Metabolic Panel (03/20/17 11:35) Myoglobin Serum (03/20/17 11:35) Protime With Inr (03/20/17 11:35) Partial Thromboplastin Time (03/20/17 11:35) O2 (03/20/17 11:35) Monitor-Rhythm Ecg Trace Only (03/20/17 11:35) Lipid Panel (03/21/17 06:00) Aspirin Chewable Tablet (Baby Aspirin Ch (03/20/17 11:45) Rx-Nitroglycerin Sl Tabs (Rx-Nitrostat S (03/20/17 11:45) Morphine Injection (Morphine Injection (03/20/17 11:35) Saline Lock/Iv-Start (03/20/17 11:35) Lidocaine 2% Viscous 15 Ml (Xylocaine Vi (03/20/17 11:45) Antacid Suspension (Mylanta Suspension (03/20/17 11:45) Fibrin Degradation Products (03/20/17 11:30) Troponin I (03/20/17 14:30) Albuterol/Ipra Inhalation Soln (Duoneb I (03/20/17 13:30) Svn Sm Volume Nebulizer Rt-Rfs (03/20/17 13:18) Medications Given in ED Current Medications Medications Dose Ordered Sig/[place] Route Start Time Stop Time Status Last Admin Dose Admin Al Hydrox/Mg Hydrox/Simethicone 30 ml ONCE ONCE PO 03/20/17 11:45 03/20/17 11:46 DC 03/20/17 11:59 30 ML Albuterol/ Ipratropium 3 ml ONCE ONCE INH 03/20/17 13:30 03/20/17 13:31 DC 03/20/17 13:27 3 ML Aspirin 324 mg ONCE ONCE PO 03/20/17 11:45 03/20/17 11:46 DC 03/20/17 11:59 324 MG Lidocaine HCl 15 ml ONCE ONCE PO 03/20/17 11:45 03/20/17 11:46 DC 03/20/17 12:00 15 ML Vital Signs/I&O Vital Sign - Last 12Hours 03/20/17 03/20/17 03/20/17 03/20/17 11:30 11:35 11:35 13:27 Temp 98.5 Pulse 111 Resp 17 B/P (MAP) 102/91 Pulse Ox 98 95 96 O2 Delivery Nasal Cannula Nasal Cannula Nasal Cannula Nasal Cannula O2 Flow Rate 5.00 5.00 5.0 4.50 Progress Note #1: Time: 11:40 Progress Note 09/03 cardiac catheter report:1. Angiographically normal coronary arteries. 2. Normal global left ventricular systolic function with an ejection fraction of approximately 60%. 3. Mild elevation of left ventricular end diastolic pressure. 4. No significant mitral regurgitation. Patient with chest pain that is burning in nature so we will allow her have nitroglycerin and morphine but also will give her a GI cocktail considering the intermittent burning sensation. It is also possible she could be having AAA however there is a normal intrathoracic aorta seen in her 04/[address] report. Progress Note #2: Time: 12:30 Progress Note Initial troponin was negative and despite having a negative 2 years ago it is concerning that her chest pain occurred earlier while she was on a treadmill and again now early hours of the morning. The albuterol she took this morning did not relieve her chest pain at all so bronchospasms seems less likely. She did receive however Maalox and viscous lidocaine orally and that took her pain from severe down to nothing. Her anxiety has also abated. Although it is tempting to assign her chest pain to a GI cause alone this patient has significant COPD oxygen dependent goal stage III that is going to make it a higher likelihood that she might have coronary disease. She will benefit from an overnight observation. Progress Note #3: Time: 14:54 Progress Note Delta troponin at 3 hours is 0. We'll allow her to go home she says she will follow up with Dr. Perrin and call his office Wednesday morning. I will call and notify Dr. Perrin of the outcome. Follow up and ambulate around the room she did have some tachycardia upwards of 130 to 140. This resolved as she rested. She was given albuterol updraft which did not seem to make any difference in her symptoms or her breath sounds. I would have her level on her prednisone for the next week from 10 mg daily to 20 mg daily. ECG EKG : EKG Time: 11:32 Rate: 114 Rhythm: S.Tach Intervals: Normal ECG Comparisson: Unchanged ECG Impression: Nonspecific Changes Diagnostic Imaging Diagonstic Imaging: Xray Plain Films/CT/US/NM/MRI: chest Comments No acute cardiopulmonary processes noted. NAME: RICHA [facility] REC#: [id number] PT STATUS: REG ER : 1970 PHYSICIAN: MARIAH LAI MD ADMIT DATE: 03/20/17/ER Draft Date of Exam:03/20/17 CHEST 1 VIEW, AP/PA ONLY INDICATION: Chest pain. Comparison with 11/13/2016. FINDINGS: The lungs are well-aerated. There are no infiltrates present. The heart is upper limits of normal. There is no evidence of pulmonary edema. No hilar adenopathy. No pneumothorax or pleural effusion. IMPRESSION: No acute changes noted when compared with previous exam. Dictated on workstation # [id number] Dict: 03/20/17 1151 Trans: 03/20/17 1156 [id number] Interpreted by: KIRSTIE FRAZIER MD Reviewed: Reviewed by Hi Consults Consults : Consulting Physician: Rocky PERRIN MD Consults Notes Recommends a three-hour delta troponin or if the patient prefers could do an overnight serial troponin observation and rule out. Follow up next week with cardiology either himself or Dr. Stapleton. Departure Impression Impression: Primary Impression: Chest pain Qualified Codes: R07.89 - Other chest pain Additional Impression: COPD Disposition: HOME, SELF-CARE Condition: Improved Departure-Patient Inst. Decision time for Depature: 14:56 Referrals: TEMITOPE GARCIA DO (PCP/Family) Primary Care Physician Patient Instructions: Chest Pain (DC) Add. Discharge Instructions: Your chest pain does not seem to be associated with the heart. However with your COPD history would still be advisable to follow up with cardiology next week for a more complete workup. Dr. Perrin was consulted on your case today and is more than willing to see you if you will call his office Wednesday morning. Dr. Stapleton would also be available. Dr. Mackey is not available for follow-up this week. You should also make plans to follow-up with Dr. Garcia in 2-3 weeks. If you're having new or worsening symptoms such as chest pain, shortness of breath, nausea, sweating, fatigue then you should return to the ER immediately. For the next week or what have you increase her prednisone to 20 mg daily. I sent a prescription to [facility] [place] pharmacy for 7 extra 10 mg tablets. Scripts Prednisone (Prednisone) 20 Mg Tab 10 MG PO DAILY for 7 Days, #7 TAB 0 Refills Prov: MARIAH LAI 03/20/17 Copy Copies To 1: TEMITOPE GARCIA DO MARIAH LAI Mar 20, 2017 11:35
[2017-03-20 11:44] LABS: BASOPHILS # (AUTO) 0.1 10^3/uL (0.0-0.1); BASOPHILS % (AUTO) 0 % (0-10); EOSINOPHILS # (AUTO) 0.6 10^3/uL (0.0-0.3); EOSINOPHILS % (AUTO) 5 % (0-10); LYMPHOCYTES # (AUTO) 1.9 X 10^3 (1.0-4.0); LYMPHOCYTES % (AUTO) 16 % (12-44); MEAN CORPUSCULAR HEMOGLOBIN 26 PG (25-34); MEAN CORPUSCULAR HGB CONC 30 G/DL (32-36); MEAN CORPUSCULAR VOLUME 87 FL (80-99); MEAN PLATELET VOLUME 9.9 FL (7.4-10.4); MONOCYTES # (AUTO) 0.8 X 10^3 (0.0-1.0); MONOCYTES % (AUTO) 7 % (0-12); NEUTROPHILS # (AUTO) 8.4 X 10^3 (1.8-7.8); NEUTROPHILS % (AUTO) 72 % (42-75); PLATELET COUNT 331 10^3/uL (130-400); RED BLOOD COUNT 4.13 10^6/uL (4.35-5.85); RED CELL DISTRIBUTION WIDTH 15.1 % (10.0-14.5); WHITE BLOOD COUNT 11.7 10^3/uL (4.3-11.0)
[2017-03-20] MEDS ORDERED: LIDOCAINE 2% VISCOUS 15 ML UDC PO ONE (11:45)
[2017-03-20] MEDS ORDERED: ASPIRIN 81 MG CHEW (CHILDREN'S ASA) PO ONE (11:45)
[2017-03-20] MEDS ORDERED: ANTACID SUSP 30 ML UDC (MYLANTA) PO ONE (11:45)
[2017-03-20] MEDS ORDERED: RX-NITROGLYCERIN 0.4 MG TAB BTL 25'S SL PRN (11:45)
--- NOTE | 2017-03-20 11:57 | Diagnostic Imaging Report ---
INDICATION: Chest pain. Comparison with 11/13/2016. FINDINGS: The lungs are well-aerated. There are no infiltrates present. The heart is upper limits of normal. There is no evidence of pulmonary edema. No hilar adenopathy. No pneumothorax or pleural effusion. IMPRESSION: No acute changes noted when compared with previous exam. Dictated by: Dictated on workstation # [id number]
[2017-03-20 12:04] LABS: ALANINE AMINOTRANSFERASE 16 U/L (0-55); ALBUMIN 3.9 GM/DL (3.2-4.5); ANION GAP 16 MMOL/L (5-14); ASPARTATE AMINO TRANSFERASE 15 U/L (5-34); BILIRUBIN,TOTAL 0.2 MG/DL (0.1-1.0); BLOOD UREA NITROGEN 14 MG/DL (7-18); BUN/CREATININE RATIO 13; CALCIUM 8.8 MG/DL (8.5-10.1); CARBON DIOXIDE 22 MMOL/L (21-32); CHLORIDE 101 MMOL/L (98-107); CREATININE SERUM 1.04 MG/DL (0.60-1.30); GFR ESTIMATED 58; GLUCOSE 380 MG/DL (70-105); MAGNESIUM 2.2 MG/DL (1.8-2.4); POTASSIUM 4.4 MMOL/L (3.6-5.0); SODIUM 139 MMOL/L (135-145)
[2017-03-20 12:05] LABS: INR 0.9 (0.8-1.4)
[2017-03-20 12:10] LABS: MYOGLOBIN SERUM 28.7 NG/ML (10.0-92.0)
[2017-03-20] MEDS ORDERED: RT-ALBUTEROL/IPRATROPIUM 3 ML (DUONEB) VIAL INH ONE (13:30)
[2017-03-20] MEDS ORDERED: PRD20T PO ×2 (14:58→15:01)
[2017-03-20 15:06] VITALS: BP 117/88
--- OUTSIDE RECORDS SUMMARY | 2017-03-23 04:17 | XMS REPORT ---
Author Author DION SOTO [facility] eClinicalWorks Address Unknown Phone Unavailable Care Team Providers Care Manager Banking Name Role Phone DION SOTO Unavailable Allergies, Adverse Reactions, Alerts Substance Reaction Event Type Pyridium anaphylaxis Drug Allergy Problems Problem Type Condition ICD-9 Code Onset Dates Condition Status Assessment Skin infection 686.9 Active Problem Diabetes with other specified manifestations, type II or unspecified type, not stated as uncontrolled 250.80 Active Problem Anxiety state, unspecified 300.00 Active Assessment Diabetes 250.00 Active Assessment Cellulitis, leg 682.6 Active Problem Essential and other specified forms of tremor 333.1 Active Problem Heartburn 787.1 Active Problem Diabetes 250.00 Active Problem Allergic rhinitis, cause unspecified 477.9 Active Problem Other specified menopausal and postmenopausal disorder 627.8 Active Problem Other specified local infections of skin and subcutaneous tissue 686.8 Active Problem Wheezing 786.07 Active Medications Medication Code System Code Instructions Start Date End Date Status Dosage Daliresp [facility] [address]-53 500 mcg Aug 10, 2014 take 1 tablet ( 500 mcg) by oral route once daily Triamcinolone in Absorbase [facility] [address]-59 0.05 % Twice a day 1 application to affected area Mucinex [facility] [address]-59 600 mg November 22, 2014 1 tablet by Oral route 2 times per day PRN with plenty of water Alprazolam [facility] [address]-48 1 MG Orallyas needed Twice a day May 24, 2015 1 tablet Test strips [facility] 0 Test Strips 2 times a day- dx: 250.80 test blood sugar Symbicort [facility] [address]-33 160-4.5 MCG/ACT Inhalation Twice a day Apr 26, 2015 2 puffs Zovirax [facility] [address]-61 5 % Nov 16, 2013 apply 1 Application to the affected area(s) by Topical route 5 times per day for 4 days Temazepam [facility] [address]-93 15 MG Orally Once a day at bedtime.Dispense to [facility] Strides ONly Oct 02, 2014 2 capsule Loratadine [facility] [address]-72 10 MG Once a day Sep 19, 2014 take 1 tablet by Oral route 1 time per day take at hs Omeprazole [facility] [address]-41 20 MG Orally Once a day Jul 23, 2014 1 capsule Lancets [facility] [id number] not defined ProAir HFA [facility] [address]-06 108 (90 Base) MCG/ACT Inhalation every 4 hrs February 08, 2015 2 puffs as needed Nptaddls-Pjzszahnt-SK [facility] [address]-52 3.5-10,000-1 mg/mL-unit/mL-% December 14, 2014 2 drop by Otic route 4 times per day for 7 day(s) in left ear Ipratropium-Albuterol [facility] [address]-53 0.5 mg-3 mg(2.5 mg base)/3 mL Oct 25, 2014 inhale 3 milliliters by nebulization route 4 times per day PRN Nebulizer [facility] 169[address]84 1 as directed DX_COPD February 20, 2015 as directed Hydrochlorothiazide [facility] [address]-41 25 MG Once a day- must last 30 days Nov 13, 2014 1 tablet by Oral route 1 time dx: 250.80 PredniSONE [facility] [address]-60 10 MG Orally Once a day 1 tablet Bactrim DS [facility] [address]-25 800-160 MG Orally 2 times a day Jun 05, 2015 Jun 15, 2015 1 tablet Ipratropium-Albuterol [facility] [address]-88 0.5-2.5 (3) MG/3ML Inhalation Four times a day February 08, 2015 3 ml Oxygen [facility] 0 2-3 L/NC nasal continuous January 24, 2015 as directed Ibuprofen [facility] [address]-58 800 MG Orally 3 times a day November 27, 2014 Jul 05, 2015 take 1 tablet by Oral route 2 times per day with food ProAir HFA [facility] [address]-94 90 mcg/actuation December 14, 2014 inhale 2 puffs by Inhalation route every 4 hours as needed PRN shortness of breath/cough Fluoxetine HCl [facility] [address]-86 40 MG Orally Once a day May 24, 2015 1 capsule in the morning metformin NDC 0 500 mg 2 times a day Oct 19, 2014 take 1 tablet Bactroban [facility] [address]-19 2 % Externally Three times a day Jun 05, 2015 Jul 05, 2015 1 application to affected area HydrOXYzine HCl [facility] [address]-13 50 MG Orally every 8 hrs Jul 17, 2014 1 tablet as needed Procedures Procedure Coding System Code Date Office Visit, Est Pt., Level 4 CPT-4 62794 Jun 05, 2015 ROCEPHIN 1 GM (IM) CPT-4 J0696 Jun 05, 2015 [facility] VISIT ESTABLISHED PATIENT CPT-4 G0467 Jun 05, 2015 THER/PROPH/DIAG INJ, SC/IM CPT-4 65520 Jun 05, 2015 Vital Signs Date/Time: Jun 05, 2015 Temperature 97.6 F Weight 266.8 lbs Height 62 in BMI 48.79 Index Blood Pressure Diastolic 82 mmHg Blood Pressure Systolic 138 mmHg Cardiac Monitoring Heart Rate 88 bpm Results No Known Results Summary Purpose eClinicalWorks Submission
--- OUTSIDE RECORDS SUMMARY | 2017-03-23 04:17 | XMS REPORT ---
Author Author ANDREI DONALDSON [facility] eClinicalWorks Address Unknown Phone Unavailable Care Team Providers Care Behavioral Health Case Manager Name Role Phone ANDREI DONALDSON CP Unavailable Allergies, Adverse Reactions, Alerts Substance Reaction Event Type N.K.D.A. Info Not Available Non Drug Allergy Problems Problem Type Condition Code Onset Dates Condition Status Problem Diabetes 250.00 Active Problem Oral lesion K13.70 Active Problem Anxiety F41.9 Active Problem Generalized anxiety disorder F41.1 Active Problem Chronic obstructive pulmonary disease, unspecified COPD type J44.9 Active Problem Major depressive disorder, recurrent episode, unspecified severity F33.9 Active Problem Palpitation R00.2 Active Problem Chest pain, unspecified chest pain type R07.9 Active Problem Chronic respiratory failure, unsp w hypoxia or hypercapnia J96.10 Active Problem Type 2 diabetes mellitus with diabetic neuropathy E11.40 Active Assessment Generalized anxiety disorder F41.1 Active Problem Diabetes with other specified manifestations, type II or unspecified type, not stated as uncontrolled 250.80 Active Assessment Major depression, recurrent, chronic F33.9 Active Problem Wheezing 786.07 Active Problem Other specified local infections of skin and subcutaneous tissue 686.8 Active Problem Other specified menopausal and postmenopausal disorder 627.8 Active Problem Heartburn 787.1 Active Problem Allergic rhinitis, cause unspecified 477.9 Active Problem Encounter for dental examination Z01.20 Active Medications Medication Code System Code Instructions Start Date End Date Status Dosage Neurontin [facility] [address]-30 400 MG Orally twice a day Jul 26, 2015 1 capsule Hydrochlorothiazide [facility] 60715571262 25 MG 1 tablet by Oral route 1 time dx: 250.80 Once a day- must last 30 days Ibuprofen [facility] 12519129381 800 MG TAKE 1 TABLET BY MOUTH THREE TIMES DAILY WITH FOOD MUST LAST 30 DAYS Oxygen NDC 0 2-3 L/NC nasal continuous January 24, 2015 as directed Brintellix [facility] [address]-63 20 MG Orally Once a day January 20, 2016 1 tablet HydrOXYzine HCl [facility] [address]-14 50 MG Orally every 8 hrs 1 tablet as needed Symbicort [facility] [address]-46 160-4.5 MCG/ACT Inhalation Twice a day Apr 26, 2015 2 puffs Xanax [facility] [address]-22 0.5 MG Orally Twice a day January 20, 2016 1 tablet ProAir HFA [facility] 92963089076 108 (90 Base) MCG/ACT INHALE 2 PUFFS BY MOUTH EVERY FOUR HOURS NEEDED FOR SHORTNESS OF BREATH OR COUGH Ipratropium-Albuterol [facility] [address]-70 0.5-2.5 (3) MG/3ML Inhalation Four times a day February 08, 2015 3 ml Test strips ND 0 Test Strips 2 times a day- dx: 250.80 test blood sugar Lancets [facility] 8193-922867 not defined metformin ND 0 500 mg 2 times a day Oct 19, 2014 take 1 tablet Triamcinolone in Absorbase [facility] [address]-40 0.05 % Twice a day 1 application to affected area Omeprazole [facility] 00676587670 20 MG Orally Once a day 1 capsule Lovastatin [facility] 96444358723 20 MG Orally Once a day 1 tablet with a meal Nebulizer [facility] 57934-99752 1 as directed DX_COPD February 20, 2015 as directed TRUEtest Test [facility] 78883256267 USE TO TEST BLOOD GLUCOSE ONCE DAILY Loratadine [facility] [address]-13 10 MG Once a day Sep 19, 2014 take 1 tablet by Oral route 1 time per day take at hs Daliresp [facility] [address]-18 500 mcg Aug 10, 2014 take 1 tablet ( 500 mcg) by oral route once daily PredniSONE [facility] [address]-44 10 MG Orally Once a day 1 tablet Mucinex [facility] [address]-99 600 mg November 22, 2014 1 tablet by Oral route 2 times per day PRN with plenty of water fluticasone [facility] [address]-03 50 mcg/actuation December 14, 2014 1 sprays by Nasal route 2 times per day for nasal drainage Procedures Procedure Coding System Code Date Office Visit, Est Pt., Level 3 CPT-4 38209 January 20, 2016 [facility] VISIT ESTABLISHED PATIENT CPT-4 G0467 January 20, 2016 Vital Signs Date/Time: January 20, 2016 Cardiac Monitoring Heart Rate 120 bpm Weight 241.0 lbs Height 62 in BMI 44.07 Index Blood Pressure Diastolic 100 mmHg Blood Pressure Systolic 160 mmHg Results No Known Results Summary Purpose eClinicalWorks Submission
--- OUTSIDE RECORDS SUMMARY | 2017-03-23 04:18 | XMS REPORT ---
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 Name Role Phone ANDREI DONALDSON CP Unavailable Allergies No Known Allergies Problems Problem Type Condition Code Onset Dates Condition Status Problem Anxiety F41.9 Active Problem Chest pain, unspecified chest pain type R07.9 Active Problem Oral lesion K13.70 Active Problem Major depressive disorder, recurrent episode, unspecified severity F33.9 Active Problem Generalized anxiety disorder F41.1 Active Problem Major depression, recurrent, chronic F33.9 Active Problem Type 2 diabetes mellitus with diabetic neuropathy E11.40 Active Problem Palpitation R00.2 Active Problem Chronic obstructive pulmonary disease, unspecified COPD type J44.9 Active Problem Chronic respiratory failure, unsp w hypoxia or hypercapnia J96.10 Active Problem Diabetes with other specified manifestations, type II or unspecified type, not stated as uncontrolled 250.80 Active Problem Other specified menopausal and postmenopausal disorder 627.8 Active Problem Other specified local infections of skin and subcutaneous tissue 686.8 Active Problem Heartburn 787.1 Active Problem Allergic rhinitis, cause unspecified 477.9 Active Problem Encounter for dental examination Z01.20 Active Problem Wheezing 786.07 Active Problem Diabetes 250.00 Active Medications Medication Code System Code Instructions Start Date End Date Status Dosage Xanax [facility] [address]-96 0.5 MG Orally Three times a day Jul 06, 2016 1 tablet Results No Known Results Summary Purpose eClinicalWorks Submission
--- OUTSIDE RECORDS SUMMARY | 2017-03-23 04:18 | XMS REPORT ---
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 Name Role Phone DION SOTO CP Unavailable Allergies No Known Allergies Problems Problem Type Condition ICD-9 Code Onset Dates Condition Status Problem Anxiety state, unspecified 300.00 Active Problem Heartburn 787.1 Active Problem Other specified local infections of skin and subcutaneous tissue 686.8 Active Problem Essential and other specified forms of tremor 333.1 Active Problem Other specified menopausal and postmenopausal disorder 627.8 Active Problem Diabetes with other specified manifestations, type II or unspecified type, not stated as uncontrolled 250.80 Active Problem Wheezing 786.07 Active Problem Allergic rhinitis, cause unspecified 477.9 Active Medications No Known Medications Results No Known Results Summary Purpose eClinicalWorks Submission
== END 2017-03-20 15:05 | disposition home or self-care (01) ==
LOC: EDUNIT# 11:25 → ER 11:26
DX: R07.9 Chest pain, unspecified (principal); M54.5 Low back pain
CPT/HCPCS: 36415; 71010; 80053; 83735; 83874; 84484; 85025; 85379; 85610; 85730; 93041; 94640; 96374

== ENCOUNTER 2017-04-04 13:50 | Observation (INO) | payer MEDICARE, MEDICAID ==
[~2017-04-04] VITALS: Ht 157.5 cm; Wt 115.8 kg
[2017-04-04] MEDS ORDERED: ALPRAZolam 0.5 MG (XANAX) TAB PO SCH (14:00)
[2017-04-04] MEDS ORDERED: RT-ALBUTEROL/IPRATROPIUM 3 ML (DUONEB) VIAL INH ONE (14:00)
--- NOTE | 2017-04-04 14:03 | ED Cough/URI ---
General Stated Complaint: SOB/CP Source: patient Exam Limitations: no limitations History of Present Illness Time seen by provider: 14:00 Initial Comments Patient presents to ER with reports of worsening shortness of breath and a recurrence of her right-sided chest pain. She denies any worsening cough or fevers or chills. She was here for the same complaints about a week ago. She was given a short course of steroids which she states that she has finished. She also reports feeling more anxious than usual though she assures me she is not out of her Xanax. She has a history of COPD and is on supplemental oxygen [id number]. She does report new nasal congestion which has kept her from wearing her C Pap at night for the past 3 nights. Timing/Duration: yesterday, getting worse Severity/Quality: no cough Prior Episodes/Possible Cause: occasional episodes Modifying Factors: Improves With Albuterol Inhaler, Improves With Albuterol Nebulizer, Worse With Lying Down, Improves With Oxygen, Improves With Rest Associated Symptoms: cough Allergies and Home Medications Allergies Coded Allergies: codeine (Verified Allergy, Intermediate, hives, 05/14/16) Home Medications Albuterol Sulfate 8.5 Gm Hfa.aer.ad, 2 PUFF INH Q4H PRN for SHORTNESS OF BREATH, (Reported) Albuterol/Ipratropium 3 Ml Nebu, 3 ML NEB QID PRN for SHORTNESS OF BREATH, ( Reported) Alprazolam 0.5 Mg Tablet, 0.5 MG PO BID, (Reported) Budesonide/Formoterol Fumarate 10.2 Gm Hfa.aer.ad, 2 PUFF IH BID, (Reported) Cetirizine HCl 10 Mg Tablet, 10 MG PO DAILY, (Reported) Cholecalciferol (Vitamin D3) 1,000 Unit Tablet, 1,000 UNIT PO BID, (Reported) Empagliflozin 10 Mg Tablet, 10 MG PO DAILY, (Reported) Fluticasone Propionate 16 Gm [place].susp, 1 SPRAY NA DAILY PRN for ALLERGIES, ( Reported) Fluvoxamine Maleate 150 Mg Cap.er.24h, 150 MG PO HS, (Reported) Gabapentin 600 Mg Tablet, 600 MG PO TID, (Reported) Hydrochlorothiazide 25 Mg Tablet, 25 MG PO DAILY, (Reported) Hydroxyzine HCl 50 Mg Tablet, 50 MG PO Q8H PRN for ANXIETY, (Reported) Ibuprofen 800 Mg Tablet, 800 MG PO BID, (Reported) Insulin Aspart 300 Units/3 Ml Solution, SQ TID, (Reported) WILL HOLD IF BS IS 180-200 Metformin HCl 500 Mg Tablet, 500 MG PO QID, (Reported) Montelukast Sodium 10 Mg Tablet, 10 MG PO DAILY, (Reported) Mupirocin 22 Gm Oint...g., TP BID, (Reported) Omeprazole 20 Mg Capsule.dr, 20 MG PO DAILY, (Reported) Potassium Gluconate 99 Mg Tablet, 99 MG PO DAILY PRN for CRAMPS, (Reported) Prednisone 10 Mg Tab, 10 MG PO DAILY, (Reported) Prednisone 20 Mg Tab, 10 MG PO DAILY for 7 Days, #4 Ref 0 1/2 tablet in addition to your home dose Prednisone. Prescribed by: MARIAH LAI on 03/20/17 1501 Roflumilast 500 Mcg Tablet, 500 MCG PO DAILY, (Reported) Tiotropium [place] 4 Gm Mist.inhal, 1 PUFF IH DAILY, (Reported) Trazodone HCl 100 Mg Tablet, 100 MG PO HS, (Reported) Constitutional: see HPI, No chills, No fever EENTM: see HPI Respiratory: see HPI, dyspnea on exertion (chronic but worse), short of breath (chronic but worse) Cardiovascular: see HPI, chest pain (right-sided) Genitourinary: no symptoms reported Musculoskeletal: no symptoms reported Skin: no symptoms reported Psychiatric/Neurological: No Symptoms Reported Past Wpzawbx-Ygzmhx-Lyvmap Hx Patient Social History Type Used: Cigarettes Recent Hopitalizations: No ( X 2, ANXIETY ATTACK, DEPRESSION) Immunizations Up To Date Tetanus Booster (TDap): Unknown PED Vaccines UTD: No Date of Pneumonia Vaccine: May 24, 2012 Date of Influenza Vaccine: Sep 29, 2016 Seasonal Allergies Seasonal Allergies: No Surgeries HX Surgeries: Yes (LEFT EYE--LASER REPAIR OF DETACHED RETINA) Surgeries: Section, Eye Surgery, Gallbladder, Tubal Ligation Respiratory Hx Respiratory Disorders: Yes (HOME O2-CHRONIC RESPIRATORY FAILURE, NO VENTILATOR--PER PT) Respiratory Disorders: Asthma, Pneumonia, Chronic Bronchitis, Sleep Apnea, COPD , Emphysema Cardiovascular Hx Cardiac Disorders: Yes Cardiac Disorders: Hypertension Neurological Hx Neurological Disorders: No Reproductive System Hx Reproductive Disorders: No Sexually Transmitted Disease: Yes (HERPES) HIV/AIDS: No 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 Disorders: Denies 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 Genitourinary Hx Genitourinary Disorders: No Gastrointestinal Hx Gastrointestinal Disorders: Yes Gastrointestinal Disorders: Gastroesophageal Reflux, Gall Bladder Disease Musculoskeletal Hx Musculoskeletal Disorders: Yes (SHOULDER PAIN ) Musculoskeletal Disorders: Fibromyalgia, Fractures Endocrine Hx Endocrine Disorders: Yes (OBESITY) Endocrine Disorders: Diabetes, Insulin dep HEENT HX ENT Disorders: Yes (L DETACHED RETINA-LASER REPAIR,L EYE IMPAIRED VISION; CHR SORE UNDER TONGUE) Loss of Vision: Denies Hearing Impairment: Denies Cancer Hx Cancer: No Psychosocial Hx Psychiatric Problems: Yes Behavioral Health Disorders: Anxiety, Depression Integumentary HX Skin/Integumentary Disorder: Yes (RASHES, abd folds and beneath her breast bilaterally red) Skin/Integumentary Disorders: Recent Skin Changes, Herpes Blood Transfusions Hx Blood Disorders: No Adverse Reaction to a Blood Tr: No Family Medical History Family Medial History: CHF grandmother Diabetes mellitus grandmother FH: CHF (congestive heart failure) History of - respiratory disease 03 FATHER (COPD) Physical Exam Vital Signs Vital Sign - Last 12Hours 04/04/17 13:50 Temp 95.6 Pulse 111 Resp 20 B/P (MAP) 131/64 Pulse Ox 96 O2 Delivery Nasal Cannula O2 Flow Rate 5.00 Capillary Refill : General Appearance: WD/WN, no apparent distress, other (There is no respiratory distress. There is no accessory muscle use.) Eyes: Bilateral Eye Normal Inspection, Bilateral Eye PERRL HEENT: PERRL/EOMI, normal ENT inspection Neck: non-tender, full range of motion Respiratory: no respiratory distress, no accessory muscle use, decreased breath sounds, other (pursed lip breathing) Cardiovascular: regular rate, rhythm, no murmur Gastrointestinal: normal bowel sounds, non tender, soft Extremities: normal range of motion, non-tender Neurologic/Psychiatric: alert, normal mood/affect, oriented x 3 Skin: normal color, warm/dry Progress/Results/Core Measures Results/Orders Lab Results Laboratory Tests Test 04/04/17 14:02 04/04/17 14:10 Range/Units White Blood Count 9.8 4.3-11.0 10^3/uL Red Blood Count 4.18 L 4.35-5.85 10^6/uL Hemoglobin 11.0 L 11.5-16.0 G/DL Hematocrit 38 35-52 % Mean Corpuscular Volume 90 80-99 FL Mean Corpuscular Hemoglobin 26 25-34 PG Mean Corpuscular Hemoglobin Concent 29 L 32-36 G/DL Red Cell Distribution Width 15.2 H 10.0-14.5 % Platelet Count 313 130-400 10^3/uL Mean Platelet Volume 9.4 7.4-10.4 FL Neutrophils (%) (Auto) 69 42-75 % Lymphocytes (%) (Auto) 18 12-44 % Monocytes (%) (Auto) 7 0-12 % Eosinophils (%) (Auto) 5 0-10 % Basophils (%) (Auto) 1 0-10 % Neutrophils # (Auto) 6.7 1.8-7.8 X 10^3 Lymphocytes # (Auto) 1.8 1.0-4.0 X 10^3 Monocytes # (Auto) 0.7 0.0-1.0 X 10^3 Eosinophils # (Auto) 0.5 H 0.0-0.3 10^3/uL Basophils # (Auto) 0.1 0.0-0.1 10^3/uL Sodium Level 140 135-145 MMOL/L Potassium Level 4.4 3.6-5.0 MMOL/L Chloride Level 100 98-107 MMOL/L Carbon Dioxide Level 30 21-32 MMOL/L Anion Gap 10 5-14 MMOL/L Blood Urea Nitrogen 11 7-18 MG/DL Creatinine 0.81 0.60-1.30 MG/DL Estimat Glomerular Filtration Rate > 60 BUN/Creatinine Ratio 14 Glucose Level 390 H 70-105 MG/DL Calcium Level 9.4 8.5-10.1 MG/DL Total Bilirubin 0.2 0.1-1.0 MG/DL Aspartate Amino Transf (AST/SGOT) 12 5-34 U/L Alanine Aminotransferase (ALT/SGPT) 15 0-55 U/L Alkaline Phosphatase 98 40-136 U/L Total Protein 7.1 6.4-8.2 GM/DL Albumin 4.0 3.2-4.5 GM/DL Blood Gas Puncture Site R RAD Blood Gas Patient Temperature 96.6 Arterial Blood pH 7.29 *L 7.37-7.43 Arterial Blood Partial Pressure CO2 71 *H 35-45 MMHG Arterial Blood Partial Pressure O2 73 L 79-93 MMHG Arterial Blood HCO3 34 H 23-27 MMOL/L Arterial Blood Total CO2 36.1 H 21.0-31.0 MMOL/L Arterial Blood Oxygen Saturation 94 94-100 % Arterial Blood Base Excess 7.2 H -2.5-2.5 MMOL/L Low Test YES-POS Blood Gas Ventilator Setting NO Blood Gas Inspired Oxygen 5 My Orders Orders - JOHN KILPATRICK APRN Cbc With Automated Diff (04/04/17 13:56) Comprehensive Metabolic Panel (04/04/17 13:56) Chest Pa/Lat (2 View) (04/04/17 13:56) Troponin I (04/04/17 13:56) Ekg Tracing (04/04/17 13:56) Albuterol/Ipra Inhalation Soln (Duoneb I (04/04/17 14:00) Alprazolam Tablet (Xanax Tablet) (04/04/17 14:00) Svn Sm Volume Nebulizer Rt-Rfs (04/04/17 13:56) Arterial Blood Gas (04/04/17 14:14) Methylprednisolone Sod Succ (Solu-Medrol (04/04/17 14:45) Insulin (Regular) Human (Humulin R (Per (04/04/17 14:45) Medications Given in ED Current Medications Medications Dose Ordered Sig/[place] Route Start Time Stop Time Status Last Admin Dose Admin Albuterol/ Ipratropium 3 ml ONCE ONCE INH 04/04/17 14:00 04/04/17 14:01 DC 04/04/17 14:17 3 ML Vital Signs/I&O Vital Sign - Last 12Hours 04/04/17 04/04/17 13:50 14:15 Temp 95.6 Pulse 111 Resp 20 B/P (MAP) 131/64 Pulse Ox 96 94 O2 Delivery Nasal Cannula O2 Flow Rate 5.00 5.00 Departure Communication Time/Spoke to Admitting Phy: 14:[address] Garcia. We will admit the patient. BiPAP, repeat labs in the morning. Impression Impression: Primary Impression: Hyperglycemia Additional Impression: COPD EXACERBATION Disposition: ADMITTED INPATIENT Condition: Stable Decision to Admit Reason: Admit from ER (General) Decision to Admit/Date: Apr 04, 2017 Time/Decision to Admit Time: 14:32 Departure-Patient Inst. Referrals: TEMITOPE GARCIA DO (PCP/Family) Primary Care Physician JOHN KILPATRICK APRN Apr 04, 2017 14:03
[2017-04-04 14:10] LABS: BASOPHILS # (AUTO) 0.1 10^3/uL (0.0-0.1); BASOPHILS % (AUTO) 1 % (0-10); EOSINOPHILS # (AUTO) 0.5 10^3/uL (0.0-0.3); EOSINOPHILS % (AUTO) 5 % (0-10); LYMPHOCYTES # (AUTO) 1.8 X 10^3 (1.0-4.0); LYMPHOCYTES % (AUTO) 18 % (12-44); MEAN CORPUSCULAR HEMOGLOBIN 26 PG (25-34); MEAN CORPUSCULAR HGB CONC 29 G/DL (32-36); MEAN CORPUSCULAR VOLUME 90 FL (80-99); MEAN PLATELET VOLUME 9.4 FL (7.4-10.4); MONOCYTES # (AUTO) 0.7 X 10^3 (0.0-1.0); MONOCYTES % (AUTO) 7 % (0-12); NEUTROPHILS # (AUTO) 6.7 X 10^3 (1.8-7.8); NEUTROPHILS % (AUTO) 69 % (42-75); PLATELET COUNT 313 10^3/uL (130-400); RED BLOOD COUNT 4.18 10^6/uL (4.35-5.85); RED CELL DISTRIBUTION WIDTH 15.2 % (10.0-14.5); WHITE BLOOD COUNT 9.8 10^3/uL (4.3-11.0)
[2017-04-04 14:21] LABS: ABG BASE EXCESS 7.2 MMOL/L (-2.5-2.5); ABG HCO3 34 MMOL/L (23-27); ABG OXYGEN SATURATION 94 % (94-100); ABG PO2 73 MMHG (79-93); ABG TCO2 36.1 MMOL/L (21.0-31.0)
[2017-04-04 14:23] LABS: ABG PCO2 71 MMHG (35-45); ABG PH 7.29 (7.37-7.43); ALLENS TEST YES-POS; PATIENT TEMP 96.6
[2017-04-04 14:30] LABS: ALANINE AMINOTRANSFERASE 15 U/L (0-55); ANION GAP 10 MMOL/L (5-14); ASPARTATE AMINO TRANSFERASE 12 U/L (5-34); BILIRUBIN,TOTAL 0.2 MG/DL (0.1-1.0); BLOOD UREA NITROGEN 11 MG/DL (7-18); BUN/CREATININE RATIO 14; CALCIUM 9.4 MG/DL (8.5-10.1); CARBON DIOXIDE 30 MMOL/L (21-32); CHLORIDE 100 MMOL/L (98-107); CREATININE SERUM 0.81 MG/DL (0.60-1.30); GFR ESTIMATED > 60; GLUCOSE 390 MG/DL (70-105); POTASSIUM 4.4 MMOL/L (3.6-5.0); SODIUM 140 MMOL/L (135-145); TOTAL PROTEIN 7.1 GM/DL (6.4-8.2)
[2017-04-04 14:36] LABS: TROPONIN I < 0.30 NG/ML (<0.30)
[2017-04-04] MEDS ORDERED: methylPREDNISolone 125 MG (Solu-MEDROL) VIAL IVP ONE (14:45)
[2017-04-04] MEDS ORDERED: inSUlin (REGULAR) HUMAN 1 UNIT/0.01 ML (CHARGE PER UNIT) SC ONE (14:45)
--- NOTE | 2017-04-04 14:51 | Diagnostic Imaging Report ---
INDICATION: Hypoxia COMPARISON: 03/20/17 FINDINGS: Frontal and lateral views of the chest demonstrate chronic interstitial changes in both bases. Otherwise, no acute abnormalities seen. Heart is prominent without pulmonary edema. There was no pneumothorax, effusion or focal infiltrate. IMPRESSION: No acute cardiopulmonary findings. Dictated by: Dictated on workstation # [id number]
[2017-04-04] MEDS ORDERED: ALPRAZolam 0.25 MG (XANAX) TAB PO NR (15:15)
[2017-04-04] MEDS ORDERED: RT-ALBUTEROL/IPRATROPIUM 3 ML (DUONEB) VIAL INH PRN (16:00)
[2017-04-04] MEDS: LORATADINE (CLARITIN) 10 MG TAB PO SCH (16:13)
[2017-04-04] MEDS: cefTRIAXone INJECTION 1,000 MG in NS (IVPB) 50 ML IV SCH (16:13)
[2017-04-04] MEDS: inSUlin (REGULAR) HUMAN 1 UNIT/0.01 ML (CHARGE PER UNIT) SC SCH ×2 (17:00→22:26)
[2017-04-04 18:18] VITALS: BP 116/73
[2017-04-04 20:00] VITALS: BP 112/66
[2017-04-04] MEDS ORDERED: RT-ALBUTEROL/IPRATROPIUM 3 ML (DUONEB) VIAL INH SCH (21:00)
[2017-04-04] MEDS ORDERED: methylPREDNISolone 125 MG (Solu-MEDROL) VIAL IVP SCH (22:00)
[2017-04-04] MEDS: methylPREDNISolone 40 MG/ML (Solu-MEDROL) VIAL IV SCH (22:26)
[2017-04-04] MEDS: ALPRAZolam 0.5 MG (XANAX) TAB PO PRN (22:56)
[2017-04-05] VITALS: BP 96/51
[2017-04-05 04:00] VITALS: BP 96/51
[2017-04-05] MEDS: inSUlin (REGULAR) HUMAN 1 UNIT/0.01 ML (CHARGE PER UNIT) SC SCH ×4 (06:11→20:46)
[2017-04-05] MEDS: methylPREDNISolone 40 MG/ML (Solu-MEDROL) VIAL IV SCH ×2 (06:11→14:41)
[2017-04-05 06:36] LABS: BASOPHILS % (AUTO) 0 % (0-10); EOSINOPHILS % (AUTO) 0 % (0-10); LYMPHOCYTES # (AUTO) 0.9 X 10^3 (1.0-4.0); LYMPHOCYTES % (AUTO) 6 % (12-44); MEAN CORPUSCULAR HEMOGLOBIN 26 PG (25-34); MEAN CORPUSCULAR HGB CONC 30 G/DL (32-36); MEAN CORPUSCULAR VOLUME 88 FL (80-99); MEAN PLATELET VOLUME 9.9 FL (7.4-10.4); MONOCYTES # (AUTO) 0.3 X 10^3 (0.0-1.0); MONOCYTES % (AUTO) 2 % (0-12); NEUTROPHILS % (AUTO) 92 % (42-75); PLATELET COUNT 363 10^3/uL (130-400); RED BLOOD COUNT 4.04 10^6/uL (4.35-5.85); RED CELL DISTRIBUTION WIDTH 14.9 % (10.0-14.5); WHITE BLOOD COUNT 15.2 10^3/uL (4.3-11.0)
[2017-04-05 06:56] LABS: ALANINE AMINOTRANSFERASE 15 U/L (0-55); ALBUMIN 3.8 GM/DL (3.2-4.5); ANION GAP 11 MMOL/L (5-14); ASPARTATE AMINO TRANSFERASE 11 U/L (5-34); BAND NEUTROPHILS 0 %; BASOPHILS % (MANUAL) 0 %; BILIRUBIN,TOTAL 0.2 MG/DL (0.1-1.0); BLOOD UREA NITROGEN 16 MG/DL (7-18); BUN/CREATININE RATIO 21; CALCIUM 9.3 MG/DL (8.5-10.1); CARBON DIOXIDE 28 MMOL/L (21-32); CHLORIDE 99 MMOL/L (98-107); CREATININE SERUM 0.77 MG/DL (0.60-1.30); EOSINOPHILS % (MANUAL) 0 %; GFR ESTIMATED > 60; GLUCOSE 277 MG/DL (70-105); LYMPHOCYTES % (MANUAL) 5 %; NEUTROPHILS % (MANUAL) 93 %; POTASSIUM 4.7 MMOL/L (3.6-5.0); SODIUM 138 MMOL/L (135-145); TOTAL PROTEIN 6.8 GM/DL (6.4-8.2)
[2017-04-05] MEDS: RT-ALBUTEROL/IPRATROPIUM 3 ML (DUONEB) VIAL INH SCH ×4 (06:59→19:30)
[2017-04-05] MEDS: LORATADINE (CLARITIN) 10 MG TAB PO SCH (08:03)
[2017-04-05] MEDS: ALPRAZolam 0.5 MG (XANAX) TAB PO PRN (08:03)
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
[2017-04-05 08:40] VITALS: BP 104/56
[2017-04-05] MEDS ORDERED: INSU100I32 SC (08:59)
[2017-04-05] MEDS ORDERED: FLUV100T3 PO (08:59)
[2017-04-05] MEDS ORDERED: AZIT250T5 PO (08:59)
[2017-04-05] MEDS ORDERED: ARFO15VI3 NEB (08:59)
[2017-04-05] MEDS ORDERED: MIRT15TA6 PO (08:59)
[2017-04-05] MEDS ORDERED: BUDE0.5A NEB (08:59)
[2017-04-05] MEDS ORDERED: ROSU10TA24 PO (08:59)
[2017-04-05] MEDS: ENOXAPARIN 40 MG/0.4 ML (LOVENOX) SYR SC SCH (09:45)
[2017-04-05 12:48] VITALS: BP 106/58
[2017-04-05 15:26] VITALS: BP 110/61
[2017-04-05] MEDS: cefTRIAXone INJECTION 1,000 MG in NS (IVPB) 50 ML IV SCH (16:51)
[2017-04-05] MEDS ORDERED: FLUTICASONE NASAL SPRAY (FLONASE) 16 GM BTL NS PRN (18:30)
[2017-04-05] MEDS ORDERED: NON-FORMULARY MEDICATION 1 EA EA (Potassium Gluconate (Potassium) 99 MG) PO PRN (18:30)
[2017-04-05 19:52] VITALS: BP 127/58
[2017-04-05] MEDS: traZODone 100 MG (DESYREL) TAB PO SCH (20:46)
[2017-04-05] MEDS: hydrOXYzine (ATARAX) 10 MG TAB PO SCH (20:46)
[2017-04-05] MEDS: ALPRAZolam 0.5 MG (XANAX) TAB PO SCH (20:46)
[2017-04-05] MEDS: MIRTAZAPINE 15 MG (REMERON) TAB PO SCH (20:46)
[2017-04-05] MEDS: GABAPENTIN 600 MG (NEURONTIN) TAB PO SCH (20:46)
[2017-04-05] MEDS: AZITHROMYCIN 250 MG TAB (ZITHROMAX) PO SCH (20:46)
[2017-04-05] MEDS ORDERED: IBUPROFEN 800 MG (MOTRIN) TAB PO SCH (21:00)
[2017-04-05] MEDS ORDERED: NON-FORMULARY MEDICATION 1 EA EA (Hydroxyzine HCl 50 MG) PO SCH (21:00)
[2017-04-05] MEDS ORDERED: NON-FORMULARY MEDICATION 1 EA EA (Mirtazapine 15 MG) PO SCH (21:00)
[2017-04-05] MEDS ORDERED: FLUVOXAMINE MALEATE 150 MG PO SCH (21:00)
[2017-04-06] VITALS: BP 106/55
[2017-04-06 04:00] VITALS: BP 99/58
[2017-04-06] MEDS: inSUlin (REGULAR) HUMAN 1 UNIT/0.01 ML (CHARGE PER UNIT) SC SCH ×4 (06:12→21:50)
[2017-04-06] MEDS: PANTOPRAZOLE 20 MG TABLET (PROTONIX) PO SCH (06:12)
[2017-04-06] MEDS: IBUPROFEN 800 MG (MOTRIN) TAB PO SCH ×2 (06:15→17:42)
[2017-04-06 06:22] LABS: BASOPHILS % (AUTO) 0 % (0-10); EOSINOPHILS % (AUTO) 0 % (0-10); LYMPHOCYTES % (AUTO) 14 % (12-44); MEAN CORPUSCULAR HEMOGLOBIN 26 PG (25-34); MEAN CORPUSCULAR HGB CONC 29 G/DL (32-36); MEAN CORPUSCULAR VOLUME 90 FL (80-99); MEAN PLATELET VOLUME 10.1 FL (7.4-10.4); MONOCYTES # (AUTO) 1.1 X 10^3 (0.0-1.0); MONOCYTES % (AUTO) 8 % (0-12); NEUTROPHILS # (AUTO) 11.6 X 10^3 (1.8-7.8); NEUTROPHILS % (AUTO) 79 % (42-75); PLATELET COUNT 313 10^3/uL (130-400); RED BLOOD COUNT 3.85 10^6/uL (4.35-5.85); WHITE BLOOD COUNT 14.8 10^3/uL (4.3-11.0)
[2017-04-06 06:49] LABS: ALANINE AMINOTRANSFERASE 13 U/L (0-55); ALBUMIN 3.6 GM/DL (3.2-4.5); ANION GAP 9 MMOL/L (5-14); ASPARTATE AMINO TRANSFERASE 8 U/L (5-34); BILIRUBIN,TOTAL 0.1 MG/DL (0.1-1.0); BLOOD UREA NITROGEN 25 MG/DL (7-18); BUN/CREATININE RATIO 34; CALCIUM 8.9 MG/DL (8.5-10.1); CARBON DIOXIDE 28 MMOL/L (21-32); CHLORIDE 103 MMOL/L (98-107); CREATININE SERUM 0.74 MG/DL (0.60-1.30); GFR ESTIMATED > 60; GLUCOSE 293 MG/DL (70-105); POTASSIUM 4.6 MMOL/L (3.6-5.0); SODIUM 140 MMOL/L (135-145); TOTAL PROTEIN 6.2 GM/DL (6.4-8.2)
[2017-04-06] MEDS: RT-ALBUTEROL/IPRATROPIUM 3 ML (DUONEB) VIAL INH SCH ×4 (06:54→18:56)
--- NOTE | 2017-04-06 07:56 | Progress Note (SOAP) ---
Subjective Time Seen by Provider: 07:45 Subjective/Events-last exam COPD with acute exacerbation. Diabetes. Patient on Ventimask. Patient feeling much better. Patient on 12 L of oxygen. Patient wants to go home. Patient at home on 5 L of nasal oxygen Objective Exam Vital Signs Date Time Temp Pulse Resp B/P (MAP) Pulse Ox O2 Delivery O2 Flow Rate FiO2 04/06/17 06:55 94 Vapotherm 15.00 40 04/06/17 04:00 97.0 88 20 99/58 95 Vapotherm 40.00 15.00 04/06/17 00:00 96.2 87 18 106/55 93 Vapotherm 40.00 15.00 04/05/17 21:00 Vapotherm 15.00 40 04/05/17 19:52 97.0 104 20 127/58 92 Vapotherm 40.00 20.00 04/05/17 19:30 91 Vapotherm 15.00 40 04/05/17 15:26 97.8 104 20 110/61 94 Vapotherm 40.00 20.00 04/05/17 14:24 95 Vapotherm 20.00 40 04/05/17 12:48 96.8 92 20 106/58 91 Vapotherm 40.00 20.00 04/05/17 10:10 93 Vapotherm 20.00 40 04/05/17 09:55 Vapotherm 20.00 04/05/17 08:40 97.4 99 20 104/56 93 Vapotherm 40.00 20.00 I & O 04/06/17 07:00 Intake Total 2840 ml Output Total 3300 ml Balance -460 ml Capillary Refill : Less Than 3 Seconds General Appearance: No Apparent Distress, WD/WN HEENT: Normal ENT Inspection Neck: Full Range of Motion, Normal Inspection Respiratory: No Accessory Muscle Use, No Respiratory Distress, Decreased Breath Sounds Cardiovascular: Regular Rate, Rhythm, No Murmur Gastrointestinal: non tender, soft Results Lab Laboratory Tests 04/06/17 06:02 Laboratory Tests 04/05/17 11:09: Glucometer 318H 04/05/17 16:02: Glucometer 386H 04/05/17 20:36: Glucometer 434*H 04/06/17 05:31: Glucometer 280H 04/06/17 06:02: White Blood Count 14.8H, Red Blood Count 3.85L, Hemoglobin 10.0L, Hematocrit 35 , Mean Corpuscular Volume 90, Mean Corpuscular Hemoglobin 26, Mean Corpuscular Hemoglobin Concent 29L, Red Cell Distribution Width 15.0H, Platelet Count 313, Mean Platelet Volume 10.1, Neutrophils (%) (Auto) 79H, Lymphocytes (%) (Auto) 14 , Monocytes (%) (Auto) 8, Eosinophils (%) (Auto) 0, Basophils (%) (Auto) 0, Neutrophils # (Auto) 11.6H, Lymphocytes # (Auto) 2.0, Monocytes # (Auto) 1.1H, Eosinophils # (Auto) 0.0, Basophils # (Auto) 0.0, Sodium Level 140, Potassium Level 4.6, Chloride Level 103, Carbon Dioxide Level 28, Anion Gap 9, Blood Urea Nitrogen 25H, Creatinine 0.74, Estimat Glomerular Filtration Rate > 60, BUN/ Creatinine Ratio 34, Glucose Level 293H, Calcium Level 8.9, Total Bilirubin 0.1 , Aspartate Amino Transf (AST/SGOT) 8, Alanine Aminotransferase (ALT/SGPT) 13, Alkaline Phosphatase 79, Total Protein 6.2L, Albumin 3.6 Radiology NAME: RICHA [facility] REC#: [id number] PT STATUS: ADM Zach : 1970 PHYSICIAN: JOHN KILPATRICK APRN ADMIT DATE: 04/04/17 Signed Date of Exam: 04/04/17 CHEST PA/LAT (2 VIEW) INDICATION: Hypoxia COMPARISON: 03/20/17 FINDINGS: Frontal and lateral views of the chest demonstrate chronic interstitial changes in both bases. Otherwise, no acute abnormalities seen. Heart is prominent without pulmonary edema. There was no pneumothorax, effusion or focal infiltrate. IMPRESSION: No acute cardiopulmonary findings. Dictated by: Dictated on workstation # [id number] Dict: 04/04/17 1449 Trans: 04/04/17 1526 Interpreted by: OSMAR PARKER Electronically signed by: OSMAR PARKER 04/04/17 1526 Assessment/Plan Assessment/Plan Assess & Plan/Chief Complaint COPD with acute exacerbation. Diabetes Clinical Quality Measures DVT/VTE Risk/Contraindication: Risk Factor Score Per Nursin RFS Level Per Nursing on Admit: 4+=Very High GELLENDER,TEMITOPE A DO Apr 06, 2017 07:56
[2017-04-06 08:00] VITALS: BP 114/69
[2017-04-06] MEDS: ENOXAPARIN 40 MG/0.4 ML (LOVENOX) SYR SC SCH (08:20)
[2017-04-06] MEDS: hydrOXYzine (ATARAX) 10 MG TAB PO SCH ×3 (08:20→20:35)
[2017-04-06] MEDS: GABAPENTIN 600 MG (NEURONTIN) TAB PO SCH ×3 (08:21→20:35)
[2017-04-06] MEDS: ROSUVASTATIN 5 MG (CRESTOR) TABLET PO SCH (08:21)
[2017-04-06] MEDS: MONTELUKAST 10 MG (SINGULAIR) TAB PO SCH (08:22)
[2017-04-06] MEDS: LORATADINE (CLARITIN) 10 MG TAB PO SCH (08:22)
[2017-04-06] MEDS: predniSONE 10 MG TAB PO SCH (08:22)
[2017-04-06] MEDS: HYDROCHLOROTHIAZIDE 25 MG (HCTZ) TAB PO SCH (08:22)
[2017-04-06] MEDS: ALPRAZolam 0.5 MG (XANAX) TAB PO SCH ×2 (08:22→20:35)
[2017-04-06 08:49] VITALS: BP 114/69
[2017-04-06] MEDS ORDERED: OMEPRAZOLE 20 MG (PriLOSEC) CAP NON-FORMULARY PO SCH (09:00)
[2017-04-06] MEDS ORDERED: LORATADINE (CLARITIN) 10 MG TAB PO SCH (09:00)
[2017-04-06] MEDS ORDERED: ROSUVASTATIN CALCIUM 10 MG PO SCH (09:00)
[2017-04-06] MEDS ORDERED: NON-FORMULARY MEDICATION 1 EA EA (Cetirizine HCl 10 MG) PO SCH (09:00)
[2017-04-06] MEDS: VITAMIN D3 1,000 UNITS (CHOLECALCIFEROL) TABLET PO SCH (09:48)
[2017-04-06] MEDS: ROFLUMILAST 500 MCG TAB (DALIRESP) PO SCH (10:03)
[2017-04-06 15:54] VITALS: BP 95/54
[2017-04-06] MEDS: cefTRIAXone INJECTION 1,000 MG in NS (IVPB) 50 ML IV SCH (16:14)
[2017-04-06 20:00] VITALS: BP 112/66
[2017-04-06] MEDS: MIRTAZAPINE 15 MG (REMERON) TAB PO SCH (20:35)
[2017-04-06] MEDS: traZODone 100 MG (DESYREL) TAB PO SCH (20:35)
[2017-04-07 00:56] VITALS: BP 100/59
[2017-04-07 04:00] VITALS: BP 98/55
[2017-04-07 06:03] LABS: BASOPHILS % (AUTO) 0 % (0-10); EOSINOPHILS # (AUTO) 0.3 10^3/uL (0.0-0.3); EOSINOPHILS % (AUTO) 3 % (0-10); LYMPHOCYTES % (AUTO) 26 % (12-44); MEAN CORPUSCULAR HEMOGLOBIN 26 PG (25-34); MEAN CORPUSCULAR HGB CONC 29 G/DL (32-36); MEAN CORPUSCULAR VOLUME 91 FL (80-99); MEAN PLATELET VOLUME 10.1 FL (7.4-10.4); MONOCYTES # (AUTO) 0.9 X 10^3 (0.0-1.0); MONOCYTES % (AUTO) 8 % (0-12); NEUTROPHILS # (AUTO) 7.2 X 10^3 (1.8-7.8); NEUTROPHILS % (AUTO) 63 % (42-75); PLATELET COUNT 307 10^3/uL (130-400); RED BLOOD COUNT 3.94 10^6/uL (4.35-5.85); RED CELL DISTRIBUTION WIDTH 15.5 % (10.0-14.5); WHITE BLOOD COUNT 11.4 10^3/uL (4.3-11.0)
[2017-04-07] MEDS: IBUPROFEN 800 MG (MOTRIN) TAB PO SCH (06:10)
[2017-04-07] MEDS: PANTOPRAZOLE 20 MG TABLET (PROTONIX) PO SCH (06:10)
[2017-04-07] MEDS: inSUlin (REGULAR) HUMAN 1 UNIT/0.01 ML (CHARGE PER UNIT) SC SCH (06:11)
[2017-04-07 06:25] LABS: ALANINE AMINOTRANSFERASE 14 U/L (0-55); ALBUMIN 3.7 GM/DL (3.2-4.5); ANION GAP 11 MMOL/L (5-14); ASPARTATE AMINO TRANSFERASE 7 U/L (5-34); BILIRUBIN,TOTAL 0.1 MG/DL (0.1-1.0); BLOOD UREA NITROGEN 23 MG/DL (7-18); BUN/CREATININE RATIO 31; CALCIUM 8.9 MG/DL (8.5-10.1); CARBON DIOXIDE 28 MMOL/L (21-32); CHLORIDE 101 MMOL/L (98-107); CREATININE SERUM 0.75 MG/DL (0.60-1.30); GFR ESTIMATED > 60; GLUCOSE 230 MG/DL (70-105); POTASSIUM 4.2 MMOL/L (3.6-5.0); SODIUM 140 MMOL/L (135-145); TOTAL PROTEIN 6.3 GM/DL (6.4-8.2)
[2017-04-07] MEDS: RT-ALBUTEROL/IPRATROPIUM 3 ML (DUONEB) VIAL INH SCH (07:21)
--- NOTE | 2017-04-07 07:57 | Progress Note (SOAP) ---
Subjective Time Seen by Provider: 07:49 Subjective/Events-last exam feeling better and breathing better. Patient on nasal cannula at 3-1/2 L. Patient's lungs sound better area White blood cell count coming down area COPD with acute exacerbation . Anemia. Diabetes. Better sugars without the Solu- Medrol. White blood cell coming down without Solu-Medrol Objective Exam Vital Signs Date Time Temp Pulse Resp B/P (MAP) Pulse Ox O2 Delivery O2 Flow Rate FiO2 04/07/17 07:44 Nasal Cannula 3.50 04/07/17 07:22 97 Nasal Cannula 5.00 04/07/17 07:22 97 04/07/17 04:00 97.8 88 20 98/55 98 Nasal Cannula 5.00 04/07/17 00:56 96.0 93 20 100/59 98 Nasal Cannula 5.00 04/06/17 20:15 Nasal Cannula 5.00 04/06/17 20:00 97.0 105 18 112/66 95 Nasal Cannula 5.00 04/06/17 18:57 96 Nasal Cannula 5.00 04/06/17 15:54 97.3 95 18 95/54 95 Nasal Cannula 5.00 04/06/17 14:15 95 Nasal Cannula 5.00 04/06/17 12:00 98.0 118 20 92 Nasal Cannula 5.00 04/06/17 10:37 88 Vapotherm 12.00 35 04/06/17 09:36 96 Vapotherm 12.00 04/06/17 08:00 97.9 104 20 114/69 90 Vapotherm 35.00 12.00 I & O 04/07/17 07:00 Intake Total 2610 ml Output Total 4700 ml Balance -2090 ml Capillary Refill : Less Than 3 Seconds General Appearance: No Apparent Distress, WD/WN, Other (On oxygen) HEENT: Normal ENT Inspection Neck: Full Range of Motion, Normal Inspection Respiratory: Chest Non Tender, Lungs Clear, No Accessory Muscle Use, No Respiratory Distress, Decreased Breath Sounds Cardiovascular: Regular Rate, Rhythm, No Murmur Gastrointestinal: non tender, soft Results Lab Laboratory Tests 04/07/17 05:22 Laboratory Tests 04/06/17 11:10: Glucometer 330H 04/06/17 15:57: Glucometer 368H 04/06/17 21:32: Glucometer 351H 04/07/17 05:15: Glucometer 222H 04/07/17 05:22: White Blood Count 11.4H, Red Blood Count 3.94L, Hemoglobin 10.2L, Hematocrit 36 , Mean Corpuscular Volume 91, Mean Corpuscular Hemoglobin 26, Mean Corpuscular Hemoglobin Concent 29L, Red Cell Distribution Width 15.5H, Platelet Count 307, Mean Platelet Volume 10.1, Neutrophils (%) (Auto) 63, Lymphocytes (%) (Auto) 26 , Monocytes (%) (Auto) 8, Eosinophils (%) (Auto) 3, Basophils (%) (Auto) 0, Neutrophils # (Auto) 7.2, Lymphocytes # (Auto) 3.0, Monocytes # (Auto) 0.9, Eosinophils # (Auto) 0.3, Basophils # (Auto) 0.0, Sodium Level 140, Potassium Level 4.2, Chloride Level 101, Carbon Dioxide Level 28, Anion Gap 11, Blood Urea Nitrogen 23H, Creatinine 0.75, Estimat Glomerular Filtration Rate > 60, BUN /Creatinine Ratio 31, Glucose Level 230H, Calcium Level 8.9, Total Bilirubin 0.1 , Aspartate Amino Transf (AST/SGOT) 7, Alanine Aminotransferase (ALT/SGPT) 14, Alkaline Phosphatase 79, Total Protein 6.3L, Albumin 3.7 Radiology [facility] REC#: [id number] PT STATUS: ADM Zach : 1970 PHYSICIAN: JOHN KILPATRICK APRN ADMIT DATE: 04/04/17/ Signed Date of Exam: 04/04/17 CHEST PA/LAT (2 VIEW) INDICATION: Hypoxia COMPARISON: 03/20/17 FINDINGS: Frontal and lateral views of the chest demonstrate chronic interstitial changes in both bases. Otherwise, no acute abnormalities seen. Heart is prominent without pulmonary edema. There was no pneumothorax, effusion or focal infiltrate. IMPRESSION: No acute cardiopulmonary findings. Dictated by: Dictated on workstation # [id number] Dict: 04/04/17 1449 Trans: 04/04/17 1526 Interpreted by: OSMAR PARKER Electronically signed by: OSMAR PARKER 04/04/17 1526 Assessment/Plan Assessment/Plan Assess & Plan/Chief Complaint COPD with acute exacerbation. Diabetes. . 04/07/17. COPD with acute exacerbation. diabetes Leukocytosis.. Patient feeling better today plan to discharge today Clinical Quality Measures DVT/VTE Risk/Contraindication: Risk Factor Score Per Nursin RFS Level Per Nursing on Admit: 4+=Very High TEMITOPE GARCIA DO Apr 07, 2017 07:57
--- NOTE | 2017-04-07 08:02 | Discharge Inst-Simple/Standard ---
Discharge Inst-Standard Patient Instructions/Follow Up Plan of Care/Instructions/FU: 2 office on Wednesday to check for sugar. Increase Crstor to 20 mg. Activity as Tolerated: Yes Discharge Diet: ADA Diet Planned Outpatient Orders/Ref. Pneu Vac Indicated: Yes TEMITOPE GARCIA DO Apr 07, 2017 08:02
[2017-04-07] MEDS ORDERED: ROSU20TA PO (08:05)
[2017-04-07 08:16] VITALS: BP 129/64
[2017-04-07] MEDS: ENOXAPARIN 40 MG/0.4 ML (LOVENOX) SYR SC SCH (08:36)
[2017-04-07] MEDS: ALPRAZolam 0.5 MG (XANAX) TAB PO SCH (08:36)
[2017-04-07] MEDS: ROSUVASTATIN 5 MG (CRESTOR) TABLET PO SCH (08:36)
[2017-04-07] MEDS: MONTELUKAST 10 MG (SINGULAIR) TAB PO SCH (08:37)
[2017-04-07] MEDS: HYDROCHLOROTHIAZIDE 25 MG (HCTZ) TAB PO SCH (08:37)
[2017-04-07] MEDS: ROFLUMILAST 500 MCG TAB (DALIRESP) PO SCH (08:37)
[2017-04-07] MEDS: predniSONE 10 MG TAB PO SCH (08:37)
[2017-04-07] MEDS: LORATADINE (CLARITIN) 10 MG TAB PO SCH (08:37)
[2017-04-07] MEDS: VITAMIN D3 1,000 UNITS (CHOLECALCIFEROL) TABLET PO SCH (08:37)
[2017-04-07] MEDS: GABAPENTIN 600 MG (NEURONTIN) TAB PO SCH (08:37)
[2017-04-07] MEDS: AZITHROMYCIN 250 MG TAB (ZITHROMAX) PO SCH (08:37)
[2017-04-07] MEDS: hydrOXYzine (ATARAX) 10 MG TAB PO SCH (09:12)
[2017-04-07 11:05] VITALS: BP 129/64
--- NOTE | 2017-04-09 07:23 | Clinic Account Progress/Dx ---
Clinic Account Progress/Dx DIAGNOSIS: Time Seen by Provider: 07:20 Diagnosis COPD with acute exacerbation. Dependence on supplemental oxygen. Hypertension. Diabetes. Obesity. History of tobacco usage. TEMITOPE GARCIA DO Apr 09, 2017 07:23
== END 2017-04-07 07:48 | disposition home or self-care (01) ==
LOC: EDUNIT# 13:50 → ER 13:51 → UNDOADMOB 14:39 → 4TH 14:39
PROVIDERS: ADMIT Family Medicine; ATTEND Family Medicine
DX: J44.1 Chronic obstructive pulmonary disease with (acute) exacerbation (principal); E11.65 Type 2 diabetes mellitus with hyperglycemia; R09.81 Nasal congestion; I10 Essential (primary) hypertension; E66.9 Obesity, unspecified; Z99.81 Dependence on supplemental oxygen; Z79.84 Long term (current) use of oral hypoglycemic drugs; Z79.4 Long term (current) use of insulin; Z79.899 Other long term (current) drug therapy; Z87.891 Personal history of nicotine dependence
CPT/HCPCS: 36415; 71020; 80053; 82805; 82962; 84484; 85007; 85025; 85027; 93005; 94640; 94660; 94760; 96372; 96374; G0378

== ENCOUNTER → 2017-04-13 | Outpatient (CLI) | payer MEDICARE, MEDICAID ==
[~2017-04-13] MED LIST changes: +ARFO15VI3 NEB; +AZIT250T PO; +BUDE0.5A NEB; +DOBUTamine DRIP 250 ML IV ONE; +DOBUTamine DRIP 250 ML IV SCH; +FLUV100T3 PO; +INSU100I32 SC; +MIRT15TA6 PO; +ROSU10TA24 PO; +ROSU20TA PO
[2017-04-13 08:57] VITALS: BP 127/83
== END ==
LOC: CARD 07:51
PROVIDERS: ATTEND Internal Medicine Interventional Cardiology
DX: R07.9 Chest pain, unspecified (principal)
CPT/HCPCS: 93351

== ENCOUNTER 2017-04-22 13:00 | Outpatient (RCR) | payer MEDICARE, MEDICAID ==
[~2017-04-22 13:00] MED LIST changes: -AZIT250T PO; +AZIT250T12 PO; -AZIT250T5 PO; -DOBUTamine DRIP 250 ML IV ONE; -DOBUTamine DRIP 250 ML IV SCH
== END 2017-05-09 | disposition home or self-care (01) ==
LOC: PULM 13:00
PROVIDERS: ATTEND Family Medicine
DX: J44.9 Chronic obstructive pulmonary disease, unspecified (principal)
CPT/HCPCS: 99211

== ENCOUNTER 2017-06-08 13:00 | Outpatient (RCR) | payer MEDICARE, MEDICAID ==
[~2017-06-08 13:00] MED LIST changes: -AZIT250T PO
[2017-06-10] MEDS ORDERED: AZIT250T PO (15:40)
[2017-06-10] MEDS ORDERED: CEFD300C3 PO (16:10)
== END 2017-06-19 | disposition home or self-care (01) ==
LOC: PULM 13:00
PROVIDERS: ATTEND Family Medicine
DX: J44.9 Chronic obstructive pulmonary disease, unspecified (principal)

== ENCOUNTER → 2017-06-08 | Outpatient (CLI) | payer MEDICARE, MEDICAID ==
[~2017-06-08] MED LIST changes: +AZIT250T PO; -AZIT250T12 PO; +AZIT250T5 PO
--- NOTE | 2017-06-08 19:51 | Diagnostic Imaging Report ---
EXAMINATION: Transabdominal and transvaginal pelvic ultrasound. INDICATION: Mid pelvic pain. FINDINGS: The uterus is 5.5 x 4.9 x 2.9 cm. The endometrial stripe is not well seen. There is a lobulated area measuring about 2.2 cm in the anterior aspect of the uterus, which could be a normal variation of the shape of the uterus or may indicate an underlying fibroid. The adnexa are obscured by bowel gas with the ovaries not seen. IMPRESSION: Lobulated anterior margin of the uterus may relate to underlying fibroid. The endometrial stripe is not well seen. Dictated by: Dictated on workstation # [id number]
--- NOTE | 2017-06-09 18:51 | Diagnostic Imaging Report ---
Bilateral screening mammogram 2D views with tomosynthesis. The current study was also evaluated with a Computer Aided Detection (CAD) system. INDICATION: Screening. No current complaints stated on the questionnaire. COMPARISON: 12/09/2011 FINDINGS: The breasts are composed of scattered fibroglandular densities. Occasional punctate calcification seen. Allowing for technique and positional differences, no suspicious change is seen. IMPRESSION: No significant change. ACR BI-RADS Category 2: Benign findings. Result letter will be mailed to the patient. Note: At least 10% of breast cancer is not imaged by mammography. Dictated by: Dictated on workstation # [id number]
== END ==
LOC: RAD 15:36
PROVIDERS: ATTEND Obstetrics & Gynecology
DX: Z12.31 Encounter for screening mammogram for malignant neoplasm of breast (principal); N85.8 Other specified noninflammatory disorders of uterus; R10.2 Pelvic and perineal pain
CPT/HCPCS: 76830; 76856; 77067

== ENCOUNTER 2017-06-10 13:17 | Emergency (ER) | payer MEDICARE, MEDICAID ==
[~2017-06-10] VITALS: Ht 157.5 cm; Wt 115.8 kg
[~2017-06-10 13:17] MED LIST changes: +AZIT250T12 PO; -AZIT250T5 PO
--- OUTSIDE RECORDS SUMMARY | 2017-06-10 13:28 | XMS REPORT ---
Author Author ANDREI Elliott Organization [facility] Address Unknown Care Team Providers Care Route Cdl Driver Name Role Phone ANDREI Elliott Unavailable PROBLEMS Type Condition ICD9-CM Code [id number] Code Onset Dates Condition Status SNOMED Code Problem Oral lesion K13.70 Active 808965080 Problem Major depressive disorder, recurrent episode, unspecified severity F33.9 Active 44200665 Problem Chronic respiratory failure, unsp w hypoxia or hypercapnia J96.10 Active 09014367 Problem Alcohol use disorder, severe, in early remission, dependence F10.21 Active 64945180 Problem Wheezing 786.07 Active 84974131 Problem Alcohol use disorder, severe, in sustained remission, dependence F10.21 Active 86040015 Problem Heartburn 787.1 Active 67124228 Problem Major depression, recurrent, chronic F33.9 Active 91641548 Problem Generalized anxiety disorder F41.1 Active 25537363 Problem Amphetamine use disorder, moderate, dependence F15.20 Active 87024386 Problem Major depressive disorder, recurrent, moderate F33.1 Active 91206600 Problem Allergic rhinitis, cause unspecified 477.9 Active 12406046 Problem Diabetes with other specified manifestations, type II or unspecified type, not stated as uncontrolled 250.80 Active 824960004 Problem Other specified local infections of skin and subcutaneous tissue 686.8 Active 070565504 Problem Other specified menopausal and postmenopausal disorder 627.8 Active 656871605 Problem Chronic obstructive pulmonary disease, unspecified COPD type J44.9 Active 90526058 Problem Palpitation R00.2 Active 36420685 Problem Diabetes 250.00 Active 94794397 Problem Type 2 diabetes mellitus with diabetic neuropathy E11.40 Active 50310721 Problem Chest pain, unspecified chest pain type R07.9 Active 07332611 Problem Anxiety F41.9 Active 29404355 ALLERGIES Unknown Allergies SOCIAL HISTORY No smoking Hx information available PLAN OF CARE Activity Details Follow Up 2 Months Reason: VITAL SIGNS Height 62 in 2016-10-14 Weight 244 lbs 2016-10-14 Heart Rate 90 bpm 2016-10-14 Respiratory Rate 26 2016-10-14 BMI 44.62 kg/m2 2016-10-14 Blood pressure systolic 118 mmHg 2016-10-14 Blood pressure diastolic 70 mmHg 2016-10-14 MEDICATIONS Medication Instructions Dosage Frequency Start Date End Date Duration Status Daliresp 500 mcg take 1 tablet (500 mcg) by oral route once daily Jul, Active PredniSONE 10 MG Orally Once a day 1 tablet 24h Active Test strips Test Strips test blood sugar Active Oxygen 2-3 L/NC nasal continuous as directed January, Active Ibuprofen 800 MG TAKE 1 TABLET BY MOUTH THREE TIMES DAILY WITH FOOD MUST LAST 30 DAYS 30 Active FluvoxaMINE Maleate ER 150 MG Orally Once a day 1 capsule at bedtime 24h Sep, 30 day(s) Active Loratadine 10 MG take 1 tablet by Oral route 1 time per day take at hs 24h Aug, Active Trazodone HCl 100 MG Orally Once a day 1 tablet at bedtime 24h Sep, 30 day(s) Active Lancets Active Omeprazole 20 MG Orally Once a day 1 capsule 24h 30 Active Jardiance 10 MG Orally Once a day 1 tablet 24h Active HydrOXYzine HCl 50 MG Orally three times a day 1 tablet as needed 8h 30 days Active Xanax 0.5 MG Orally Twice a day 1 tablet 12h Aug, 30 days Active Symbicort 160-4.5 MCG/ACT Inhalation Twice a day 2 puffs 12h Apr, Active ProAir HFA 108 (90 Base) MCG/ACT INHALE 2 PUFFS BY MOUTH EVERY FOUR HOURS NEEDED FOR SHORTNESS OF BREATH OR COUGH 17 Active Tresiba FlexTouch 100 UNIT/ML Active Neurontin 600 MG Orally Three times a day 1 tablet 8h Aug, 30 days Active Ipratropium-Albuterol 0.5-2.5 (3) MG/3ML Inhalation Four times a day 3 ml 6h January, Active metformin 500 mg take 1 tablet 12h Sep, Active TRUEtest Test USE TO TEST BLOOD GLUCOSE ONCE DAILY 50 Active Nebulizer 1 as directed Feb, Active Trulicity 0.75 MG/0.5ML 0.5 ml Active RESULTS No Results PROCEDURES Procedure Date Ordered Related Diagnosis Body Site HC VISIT ESTABLISHED PATIENT Oct 14, 2016 Office Visit, Est Pt., Level 3 Oct 14, 2016 IMMUNIZATIONS No Known Immunizations
--- OUTSIDE RECORDS SUMMARY | 2017-06-10 13:38 | XMS REPORT ---
Author Author ANDREI Elliott Organization [facility] Address Unknown Care Team Providers Care Doctor Chiropractic Name Role Phone ANDREI Elliott Unavailable PROBLEMS Type Condition ICD9-CM Code ATG83-EC Code Onset Dates Condition Status SNOMED Code Problem Oral lesion K13.70 Active 831366441 Problem Major depressive disorder, recurrent episode, unspecified severity F33.9 Active 90937419 Problem Chronic respiratory failure, unsp w hypoxia or hypercapnia J96.10 Active 51887746 Problem Alcohol use disorder, severe, in early remission, dependence F10.21 Active 35418678 Problem Wheezing 786.07 Active 71098686 Problem Alcohol use disorder, severe, in sustained remission, dependence F10.21 Active 82306923 Problem Heartburn 787.1 Active 40993944 Problem Major depression, recurrent, chronic F33.9 Active 60726716 Problem Generalized anxiety disorder F41.1 Active 06954142 Problem Amphetamine use disorder, moderate, dependence F15.20 Active 91362362 Problem Major depressive disorder, recurrent, moderate F33.1 Active 24175168 Problem Allergic rhinitis, cause unspecified 477.9 Active 53791530 Problem Diabetes with other specified manifestations, type II or unspecified type, not stated as uncontrolled 250.80 Active 142032673 Problem Other specified local infections of skin and subcutaneous tissue 686.8 Active 116900712 Problem Other specified menopausal and postmenopausal disorder 627.8 Active 966542265 Problem Chronic obstructive pulmonary disease, unspecified COPD type J44.9 Active 81748263 Problem Palpitation R00.2 Active 39141805 Problem Diabetes 250.00 Active 04083697 Problem Type 2 diabetes mellitus with diabetic neuropathy E11.40 Active 27889732 Problem Chest pain, unspecified chest pain type R07.9 Active 78748011 Problem Anxiety F41.9 Active 78940729 ALLERGIES Unknown Allergies SOCIAL HISTORY No smoking Hx information available PLAN OF CARE VITAL SIGNS MEDICATIONS Medication Instructions Dosage Frequency Start Date End Date Duration Status Xanax 0.5 MG Orally Twice a day 1 tablet 12h 14 Aug, 2016 30 days Active RESULTS No Results PROCEDURES No Known procedures IMMUNIZATIONS No Known Immunizations
--- OUTSIDE RECORDS SUMMARY | 2017-06-10 13:49 | XMS REPORT ---
Author Author ANDREI DONALDSON [facility] Address Unknown Care Team Providers Care Painter Plate Name Role Phone ANDREI DONALDSON Unavailable PROBLEMS Type Condition ICD9-CM Code TCA03-NJ Code Onset Dates Condition Status SNOMED Code Problem Chest pain, unspecified chest pain type R07.9 Active 20831505 Problem Type 2 diabetes mellitus with diabetic neuropathy E11.40 Active 80170331 Problem Palpitation R00.2 Active 80218300 Problem Major depressive disorder, recurrent, moderate F33.1 Active 23457706 Problem Major depression, recurrent, chronic F33.9 Active 49418425 Problem Chronic obstructive pulmonary disease, unspecified COPD type J44.9 Active 80379021 Problem Chronic respiratory failure, unsp w hypoxia or hypercapnia J96.10 Active 34450394 Problem Major depressive disorder, recurrent episode, unspecified severity F33.9 Active 54202663 Problem Generalized anxiety disorder F41.1 Active 00744569 Problem Other specified menopausal and postmenopausal disorder 627.8 Active 515958354 Problem Allergic rhinitis, cause unspecified 477.9 Active 53133078 Problem Diabetes with other specified manifestations, type II or unspecified type, not stated as uncontrolled 250.80 Active 175332723 Problem Heartburn 787.1 Active 14026791 Problem Diabetes 250.00 Active 99865709 Problem Wheezing 786.07 Active 72723518 Problem Anxiety F41.9 Active 21320146 Problem Other specified local infections of skin and subcutaneous tissue 686.8 Active 985453188 Problem Oral lesion K13.70 Active 751762821 ALLERGIES Substance Reaction Event Type Date Status N.K.D.A. Unknown Non Drug Allergy Aug, Unknown SOCIAL HISTORY No smoking Hx information available PLAN OF CARE Activity Details Follow Up 2 Months Reason: VITAL SIGNS Height 62 in 2016-09-02 Weight 249.7 lbs 2016-09-02 Heart Rate 128 bpm 2016-09-02 Respiratory Rate 26 2016-09-02 BMI 45.67 kg/m2 2016-09-02 Blood pressure systolic 121 mmHg 2016-09-02 Blood pressure diastolic 61 mmHg 2016-09-02 MEDICATIONS Medication Instructions Dosage Frequency Start Date End Date Duration Status Omeprazole 20 MG Orally Once a day 1 capsule 24h 30 Active Trazodone HCl 50 MG Orally Once a day 1 tablet at bedtime as needed 24h 17 Jun, 2016 30 days Active ProAir HFA 108 (90 Base) MCG/ACT INHALE 2 PUFFS BY MOUTH EVERY FOUR HOURS NEEDED FOR SHORTNESS OF BREATH OR COUGH 17 Active Nebulizer 1 as directed Feb, Active Ipratropium-Albuterol 0.5-2.5 (3) MG/3ML Inhalation Four times a day 3 ml 6h January, Active Xanax 0.5 MG Orally Twice a day 1 tablet 12h Aug, 30 days Active Symbicort 160-4.5 MCG/ACT Inhalation Twice a day 2 puffs 12h Apr, Active Neurontin 600 MG Orally Three times a day 1 tablet 8h Aug, 30 day(s) Active Oxygen 2-3 L/NC nasal continuous as directed January, Active Loratadine 10 MG take 1 tablet by Oral route 1 time per day take at hs 24h Aug, Active metformin 500 mg take 1 tablet 12h Sep, Active PredniSONE 10 MG Orally Once a day 1 tablet 24h Active Lancets Active Daliresp 500 mcg take 1 tablet (500 mcg) by oral route once daily Jul, Active TRUEtest Test USE TO TEST BLOOD GLUCOSE ONCE DAILY 50 Active Fluvoxamine Maleate 100 MG Orally Once a day 1 tablet at bedtime 24h Aug 30 day(s) Active Ibuprofen 800 MG TAKE 1 TABLET BY MOUTH THREE TIMES DAILY WITH FOOD MUST LAST 30 DAYS 30 Active Test strips Test Strips test blood sugar Active RESULTS Name Result Date Reference Range URINE DRUG SCREEN (IN HOUSE) 2016-09-02 Lot # [id number] Exp date 03/2018 Control + COCAINE NEGATIVE AMPH NEGATIVE MTD NEGATIVE THC NEGATIVE OPIATE NEGATIVE BENZO POSITIVE PCP NEGATIVE BAR NEGATIVE OXY NEGATIVE MAMP NEGATIVE TCA BUP NEGATIVE MDMA NEGATIVE PROCEDURES Procedure Date Ordered Related Diagnosis Body Site DRUG SCREEN NON TLC DEVICES Sep 02, 2016 [facility] VISIT ESTABLISHED PATIENT Sep 02, 2016 Office Visit, Est Pt., Level 3 Sep 02, 2016 IMMUNIZATIONS No Known Immunizations
[2017-06-10 13:52] LABS: BASOPHILS # (AUTO) 0.1 10^3/uL (0.0-0.1); BASOPHILS % (AUTO) 0 % (0-10); EOSINOPHILS # (AUTO) 0.1 10^3/uL (0.0-0.3); EOSINOPHILS % (AUTO) 0 % (0-10); LYMPHOCYTES # (AUTO) 1.2 X 10^3 (1.0-4.0); LYMPHOCYTES % (AUTO) 6 % (12-44); MEAN CORPUSCULAR HEMOGLOBIN 26 PG (25-34); MEAN CORPUSCULAR HGB CONC 29 G/DL (32-36); MEAN CORPUSCULAR VOLUME 91 FL (80-99); MEAN PLATELET VOLUME 10.1 FL (7.4-10.4); MONOCYTES % (AUTO) 5 % (0-12); NEUTROPHILS # (AUTO) 16.4 X 10^3 (1.8-7.8); NEUTROPHILS % (AUTO) 88 % (42-75); PLATELET COUNT 355 10^3/uL (130-400); RED CELL DISTRIBUTION WIDTH 15.5 % (10.0-14.5); WHITE BLOOD COUNT 18.8 10^3/uL (4.3-11.0)
[2017-06-10 14:13] LABS: LYMPHOCYTES % (MANUAL) 10 %; NEUTROPHILS % (MANUAL) 83 %; POLYCHROMASIA MODERATE
[2017-06-10 14:14] LABS: HYPOCHROMASIA MODERATE; STOMATOCYTES MODERATE
--- NOTE | 2017-06-10 14:34 | Diagnostic Imaging Report ---
AP and lateral views of the chest. INDICATION: Shortness of breath. Hypoxia. COMPARISON: 04/04/2017. FINDINGS: There is underpenetration, increasing density over the lungs seen on the AP projection. There is suggestion of prominent vascular markings and vascular congestion with no definite focal infiltrate. The heart size is moderately enlarged. No effusion or pneumothorax. The mediastinum and murray appear unremarkable. IMPRESSION: Underpenetrated AP projection decreasing sensitivity of this exam. There is cardiomegaly with suggestion of pulmonary vascular congestion. Dictated by: Dictated on workstation # [id number]
--- NOTE | 2017-06-10 14:46 | ED Respiratory ---
General Chief Complaint: Respiratory Problems Stated Complaint: SOA COUGHING UP BLOOD Nursing Triage Note: to ED 9 by wheelchair from pulmonary rehab with reports of shortness of breath. Patient is always on oxygen at home. Patient reports that she got short of breath during rehab, became hypoxic on oxygen. RT brought patient to ER for evaluation. History of Present Illness Time seen by provider: 13:40 Initial Comments Patient was in pulmonary rehabilitation when she became SOA. She uses oxygen per nasal cannula at home and at all times. She denies any chest pain or new problems. She was evaluated by Dr. Garcia earlier today she is on a 10 mg daily dose of prednisone. Timing/Duration: just prior to arrival Severity: mild Prior Episodes/Possible Cause: frequent episodes, chronic episodes Modifying Factors: Improves With Oxygen, Improves With Rest Associated Symptoms: shortness of breath Allergies and Home Medications Allergies Coded Allergies: codeine (Verified Allergy, Intermediate, hives, 05/14/16) Home Medications Albuterol Sulfate 8.5 Gm Hfa.aer.ad, 2 PUFF INH Q4H PRN for SHORTNESS OF BREATH, (Reported) Albuterol/Ipratropium 3 Ml Nebu, 3 ML NEB QID PRN for SHORTNESS OF BREATH, ( Reported) Alprazolam 0.5 Mg Tablet, 0.5 MG PO BID, (Reported) Arformoterol Tartrate 15 Mcg/2 Ml Vial.neb, 15 MCG NEB BID, (Reported) MIXES WITH BUDESONIDE Budesonide 0.5 Mg/2 Ml Ampul.neb, 0.5 MG NEB BID, (Reported) MIXES WITH BROVANA Cefdinir 300 Mg Capsule, 300 MG PO BID, #10 Ref 0 Prescribed by: WILLY NEAL on 06/10/17 1610 Cetirizine HCl 10 Mg Tablet, 10 MG PO DAILY, (Reported) Cholecalciferol (Vitamin D3) 1,000 Unit Tablet, 3,000 UNIT PO DAILY, (Reported) TAKES 3 (1,000 UNITS) TABLETS Empagliflozin 10 Mg Tablet, 10 MG PO DAILY, (Reported) Fluticasone Propionate 16 Gm [place].susp, 1 SPRAY NA BID PRN for ALLERGIES, ( Reported) Fluvoxamine Maleate 100 Mg Tablet, 150 MG PO BID, (Reported) TAKES 1 & 1/2 (100MG) TABLET Gabapentin 600 Mg Tablet, 600 MG PO TID, (Reported) Hydrochlorothiazide 25 Mg Tablet, 25 MG PO DAILY, (Reported) Hydroxyzine HCl 50 Mg Tablet, 50 MG PO TID, (Reported) Ibuprofen 800 Mg Tablet, 800 MG PO BID, (Reported) Insulin Aspart 300 Units/3 Ml Solution, SQ AC, (Reported) 60-200 = 0 201-250 = 3 251-300 = 5 301-350 = 7 351-400 = 0 >400 CALL Insulin Degludec 100 Unit/1 Ml Insuln.pen, 12-13 UNITS SC DAILY, (Reported) Metformin HCl 500 Mg Tablet, 1,000 MG PO BID, (Reported) TAKES 2 (500MG) TABLETS Mirtazapine 15 Mg Tablet, 15 MG PO HS, (Reported) Montelukast Sodium 10 Mg Tablet, 10 MG PO DAILY, (Reported) Omeprazole 20 Mg Capsule.dr, 20 MG PO DAILY, (Reported) Potassium Gluconate 99 Mg Tablet, 99 MG PO DAILY PRN for CRAMPS, (Reported) Prednisone 10 Mg Tab, 10 MG PO DAILY, (Reported) Roflumilast 500 Mcg Tablet, 500 MCG PO DAILY, (Reported) Rosuvastatin Calcium 20 Mg Tablet, 20 MG PO DAILY for 30 Days Prescribed by: TEMITOPE GARCIA on 04/07/17 0805 Tiotropium [place] 4 Gm Mist.inhal, 1 PUFF IH DAILY, (Reported) Trazodone HCl 100 Mg Tablet, 100 MG PO HS, (Reported) Constitutional: no symptoms reported, see HPI Respiratory: see HPI, dyspnea on exertion, short of breath All Other Systems Reviewed Negative Unless Noted: Yes Past Ncmmyzh-Okixsq-Jqvqpr Hx Patient Social History Alcohol Use: Denies Use Recreational Drug Use: No Smoking Status: Former Smoker Type Used: Cigarettes Former Smoker, Quit: Apr 20, 2014 2nd Hand Smoke Exposure: No Recent Foreign Travel: No Contact w/Someone Who Travel: No Recent Infectious Disease Expo: No Recent Hopitalizations: No ( X 2, ANXIETY ATTACK, DEPRESSION) Physical Abuse: No Sexual Abuse: No Immunizations Up To Date Tetanus Booster (TDap): Unknown PED Vaccines UTD: No Date of Pneumonia Vaccine: May 24, 2012 Date of Influenza Vaccine: Sep 29, 2016 Seasonal Allergies Seasonal Allergies: No Surgeries History of Surgeries: Yes (LEFT EYE--LASER REPAIR OF DETACHED RETINA) Surgeries: Section, Eye Surgery, Gallbladder, Tubal Ligation Respiratory History of Respiratory Disorde: Yes (HOME O2-CHRONIC RESPIRATORY FAILURE, NO VENTILATOR--PER PT) Respiratory Disorders: Asthma, Pneumonia, Chronic Bronchitis, Sleep Apnea, COPD , Emphysema Currently Using CPAP: Yes Currently Using BIPAP: No Cardiovascular History of Cardiac Disorders: Yes Cardiac Disorders: Hypertension Neurological History of Neurological Disord: No Reproductive System Hx Reproductive Disorders: No Sexually Transmitted Disease: Yes (HERPES) HIV/AIDS: No 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 Disorders: Denies 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 PACKER History: Menopausal Gastrointestinal History of Gastrointestinal Di: Yes Gastrointestinal Disorders: Gastroesophageal Reflux, Gall Bladder Disease Musculoskeletal History of Musculoskeletal Dis: Yes (SHOULDER PAIN ) Musculoskeletal Disorders: Fibromyalgia, Fractures Endocrine History of Endocrine Disorders: Yes (OBESITY) Endocrine Disorders: Diabetes, Insulin dep HEENT Loss of Vision: Denies Hearing Impairment: Denies Cancer History of Cancer: No Psychosocial History of Psychiatric Problem: Yes Behavioral Health Disorders: Anxiety, Depression Suicide Risk Score: 0 Integumentary History of Skin or Integumenta: Yes (RASHES, abd folds and beneath her breast bilaterally red) Skin/Integumentary Disorders: Recent Skin Changes, Herpes Blood Transfusions History of Blood Disorders: No Adverse Reaction to a Blood Tr: No Reviewed Nursing Assessment Reviewed/Agree w Nursing PMH: Yes Family Medical History Family Medial History: CHF grandmother Diabetes mellitus grandmother FH: CHF (congestive heart failure) History of - respiratory disease 03 FATHER (COPD) Physical Exam Vital Signs Vital Sign - Last 12Hours 06/10/17 13:25 Temp 98.5 Pulse 110 Resp 26 B/P (MAP) 136/83 Pulse Ox 95 O2 Delivery OxyMask O2 Flow Rate 5.00 Capillary Refill : Less Than 3 Seconds General Appearance: WD/WN, no apparent distress Eyes: Bilateral Eye Normal Inspection, Bilateral Eye PERRL, Bilateral Eye EOMI HEENT: PERRL/EOMI, normal ENT inspection, TMs normal, pharynx normal Neck: non-tender, full range of motion, supple, normal inspection Respiratory: chest non-tender, decreased breath sounds Cardiovascular: normal peripheral pulses, regular rate, rhythm, no edema, no murmur Gastrointestinal: normal bowel sounds, non tender, soft Neurologic/Psychiatric: no motor/sensory deficits, alert, normal mood/affect, oriented x 3 Skin: normal color, warm/dry Lymphatic: no adenopathy Progress/Results/Core Measures Results/Orders Lab Results Laboratory Tests Test 06/10/17 13:35 06/10/17 15:12 Range/Units White Blood Count 18.8 H 4.3-11.0 10^3/uL Red Blood Count 4.20 L 4.35-5.85 10^6/uL Hemoglobin 11.1 L 11.5-16.0 G/DL Hematocrit 38 35-52 % Mean Corpuscular Volume 91 80-99 FL Mean Corpuscular Hemoglobin 26 25-34 PG Mean Corpuscular Hemoglobin Concent 29 L 32-36 G/DL Red Cell Distribution Width 15.5 H 10.0-14.5 % Platelet Count 355 130-400 10^3/uL Mean Platelet Volume 10.1 7.4-10.4 FL Neutrophils (%) (Auto) 88 H 42-75 % Lymphocytes (%) (Auto) 6 L 12-44 % Monocytes (%) (Auto) 5 0-12 % Eosinophils (%) (Auto) 0 0-10 % Basophils (%) (Auto) 0 0-10 % Neutrophils # (Auto) 16.4 H 1.8-7.8 X 10^3 Lymphocytes # (Auto) 1.2 1.0-4.0 X 10^3 Monocytes # (Auto) 1.0 0.0-1.0 X 10^3 Eosinophils # (Auto) 0.1 0.0-0.3 10^3/uL Basophils # (Auto) 0.1 0.0-0.1 10^3/uL Neutrophils % (Manual) 83 % Lymphocytes % (Manual) 10 % Monocytes % (Manual) 7 % Polychromasia MODERATE Hypochromasia MODERATE Basophilic Stippling MODERATE Stomatocytes MODERATE B-Type Natriuretic Peptide 120.4 H <100.0 PG/ML Sodium Level 139 135-145 MMOL/L Potassium Level 3.7 3.6-5.0 MMOL/L Chloride Level 92 L 98-107 MMOL/L Carbon Dioxide Level 34 H 21-32 MMOL/L Anion Gap 13 5-14 MMOL/L Blood Urea Nitrogen 17 7-18 MG/DL Creatinine 0.81 0.60-1.30 MG/DL Estimat Glomerular Filtration Rate > 60 BUN/Creatinine Ratio 21 Glucose Level 183 H 70-105 MG/DL Calcium Level 9.2 8.5-10.1 MG/DL Total Bilirubin 0.2 0.1-1.0 MG/DL Aspartate Amino Transf (AST/SGOT) 22 5-34 U/L Alanine Aminotransferase (ALT/SGPT) 22 0-55 U/L Alkaline Phosphatase 99 40-136 U/L Total Protein 7.9 6.4-8.2 GM/DL Albumin 4.5 3.2-4.5 GM/DL My Orders Orders - WILLY NEAL BNP (06/10/17 13:45) Cbc With Automated Diff (06/10/17 13:45) Comprehensive Metabolic Panel (06/10/17 13:45) Chest Pa/Lat (2 View) (06/10/17 13:45) Manual Differential (06/10/17 13:35) Albuterol/Ipra Inhalation Soln (Duoneb I (06/10/17 15:30) Svn Sm Volume Nebulizer Rt-Rfs (06/10/17 15:27) Alprazolam Tablet (Xanax Tablet) (06/10/17 16:15) Medications Given in ED Current Medications Medications Dose Ordered Sig/[place] Route Start Time Stop Time Status Last Admin Dose Admin Albuterol/ Ipratropium 3 ml ONCE ONCE INH 06/10/17 15:30 06/10/17 15:31 DC 06/10/17 15:36 3 ML Alprazolam 0.25 mg ONCE ONCE PO 06/10/17 16:15 06/10/17 16:17 DC 06/10/17 16:18 0.25 MG Vital Signs/I&O Vital Sign - Last 12Hours 06/10/17 06/10/17 13:25 15:36 Temp 98.5 Pulse 110 Resp 26 B/P (MAP) 136/83 Pulse Ox 95 96 O2 Delivery OxyMask O2 Flow Rate 5.00 5.00 Blood Pressure Mean: 100 Progress Note : Time: 13:40 Progress Note Initial evaluation completed, will complete a CBC and CMP along with a chest x- ray. 1500 patient has removed her SaO2 monitor and oxygen mask. SaO2 55% on room air. Oxygen per mask replaced patient's SaO2 quickly improved to 80s and then 90 %. 1515 DuoNeb treatment. Patient reports improvement in her shortness of air after the treatment. Discussed admission versus discharge planning with the patient, she prefers discharge to home. She has her breathing machine, home oxygen and prednisone. [address] Garcia, he reports that he saw her earlier today, he agrees home management is acceptable for this patient. Dr. Garcia agreed to see the patient at 10:00 tomorrow. Will continue her home medication and add a Z-Gab to take as prescribed. 1610 Patient removed her O2 mask and SaO2 monitor, her Sa02 was 48%, O2 per mask reapplied and it increased to 70s then 80s and 92% quickly. Patient was coherent, no SOA and answering questions appropriately when her oxygen was low. Stressed the patient the importance of leaving her SaO2 monitor and oxygen per mask on at all times. 1620 phone call from [place] pharmacy, the patient is currently on azithromycin 250 mg 3 times a week. Changed order to Cefdnir 300 mg twice a day for 5 days. Diagnostic Imaging Diagonstic Imaging: Xray Plain Films/CT/US/NM/MRI: chest Comments NAME: [facility] REC#: [id number] PT STATUS: REG ER : 1970 PHYSICIAN: WILLY NEAL ADMIT DATE: 06/10/17/ER Draft Date of Exam:06/10/17 CHEST PA/LAT (2 VIEW) AP and lateral views of the chest. INDICATION: Shortness of breath. Hypoxia. COMPARISON: 04/04/2017. FINDINGS: There is underpenetration, increasing density over the lungs seen on the AP projection. There is suggestion of prominent vascular markings and vascular congestion with no definite focal infiltrate. The heart size is moderately enlarged. No effusion or pneumothorax. The mediastinum and murray appear unremarkable. IMPRESSION: Underpenetrated AP projection decreasing sensitivity of this exam. There is cardiomegaly with suggestion of pulmonary vascular congestion. Dictated on workstation # [id number] Dict: 06/10/17 1424 Trans: 06/10/17 1434 [facility] [id number] Interpreted by: POLINA DAS MD Electronically signed by: Reviewed: Reviewed by Me Departure Impression Impression: Primary Impression: COPD EXACERBATION Disposition: HOME, SELF-CARE Condition: Stable Departure-Patient Inst. Decision time for Depature: 15:30 Referrals: TEMITOPE GARCIA DO (PCP/Family) Primary Care Physician Patient Instructions: Exacerbation of COPD (DC) Add. Discharge Instructions: Follow-up with Dr. Garcia 10:00 am WedJun 11 Continue taking prednisone as prescribed by Dr. Garcia. Start antibiotic prescription intake until complete. Continue to use home oxygen and breathing treatments as prescribed. Return to emergency department for increased difficulty breathing, fever greater than 101, chest pain, new problems or concerns. All discharge instructions reviewed with patient and/or family. Voiced understanding. Scripts Cefdinir (Cefdinir) 300 Mg Capsule 300 MG PO BID, #10 CAP 0 Refills Prov: WILLY NEAL 06/10/17 Copy Copies To 1: TEMITOPE GARCIA AMY ARNP Jun 10, 2017 14:46
[2017-06-10] MEDS ORDERED: RT-ALBUTEROL/IPRATROPIUM 3 ML (DUONEB) VIAL INH ONE (15:30)
[2017-06-10] MEDS ORDERED: AZIT250T PO (15:40)
[2017-06-10 15:55] LABS: ALANINE AMINOTRANSFERASE 22 U/L (0-55); ALBUMIN 4.5 GM/DL (3.2-4.5); ANION GAP 13 MMOL/L (5-14); ASPARTATE AMINO TRANSFERASE 22 U/L (5-34); BILIRUBIN,TOTAL 0.2 MG/DL (0.1-1.0); BLOOD UREA NITROGEN 17 MG/DL (7-18); BUN/CREATININE RATIO 21; CALCIUM 9.2 MG/DL (8.5-10.1); CARBON DIOXIDE 34 MMOL/L (21-32); CHLORIDE 92 MMOL/L (98-107); CREATININE SERUM 0.81 MG/DL (0.60-1.30); GFR ESTIMATED > 60; GLUCOSE 183 MG/DL (70-105); POTASSIUM 3.7 MMOL/L (3.6-5.0); SODIUM 139 MMOL/L (135-145); TOTAL PROTEIN 7.9 GM/DL (6.4-8.2)
[2017-06-10] MEDS ORDERED: CEFD300C3 PO (16:10)
[2017-06-10] MEDS ORDERED: ALPRAZolam 0.25 MG (XANAX) TAB PO ONE (16:15)
[2017-06-10 16:24] VITALS: BP 121/94
== END 2017-06-10 16:24 | disposition home or self-care (01) ==
LOC: EDUNIT# 13:17 → ER 13:20
DX: J44.1 Chronic obstructive pulmonary disease with (acute) exacerbation (principal); F41.9 Anxiety disorder, unspecified; F32.9 Major depressive disorder, single episode, unspecified; E11.9 Type 2 diabetes mellitus without complications; Z98.51 Tubal ligation status; Z87.59 Personal history of other complications of pregnancy, childbirth and the puerperium; Z87.891 Personal history of nicotine dependence; Z79.4 Long term (current) use of insulin; Z82.49 Family history of ischemic heart disease and other diseases of the circulatory system
CPT/HCPCS: 36415; 71020; 80053; 83880; 85007; 85027; 94640

== ENCOUNTER → 2017-07-02 | Outpatient (CLI) | payer MEDICARE, MEDICAID ==
[~2017-07-02] MED LIST changes: +AZIT250T PO; -AZIT250T12 PO; +AZIT250T5 PO; +BARIUM SUSPENSION 2.1% (VANILLA SILQ) 450 ML PO ONE; +IOHEXOL 350 MG/ML 100 ML (OMNIPAQUE 350) VIAL IV ONE; +NS 100 ML (IVPB) BAG IV ONE
--- NOTE | 2017-07-02 12:43 | Diagnostic Imaging Report ---
PROCEDURE: CT abdomen with contrast only. TECHNIQUE: Multiple contiguous axial images were obtained through the abdomen after the administration of intravenous contrast. INDICATION: Ventral hernia. 100 mL of Omnipaque 350 is administered intravenously. FINDINGS: The lung bases appear clear. The liver, the spleen, the pancreas, and the adrenal glands appear unremarkable. Cholecystectomy clips are seen. The kidneys demonstrates multiple mid and lower left kidney stones up to 3 mm without obstruction. 2 mm stone in the lower pole of the right kidney is also seen. No hydronephrosis. The abdominal aorta is normal in caliber. No para-aortic significantly enlarged lymph node is seen. There is a supraumbilical ventral hernia containing omental fat with abdominal wall defect size of 7 x 9 mm. The osseous structures demonstrate degenerative changes in the lower lumbar spine. IMPRESSION: Supraumbilical fat-containing hernia with a narrow neck abdominal wall defect measuring 0.7 x 0.9 cm. Dictated by: Dictated on workstation # [id number]
== END ==
LOC: RAD 11:29
PROVIDERS: ATTEND Surgery
DX: K43.9 Ventral hernia without obstruction or gangrene (principal)
CPT/HCPCS: 74160

== ENCOUNTER 2017-08-31 13:00 | Outpatient (RCR) | payer MEDICARE, MEDICAID ==
[~2017-08-31 13:00] MED LIST changes: +AZIT250T12 PO; -AZIT250T5 PO; -BARIUM SUSPENSION 2.1% (VANILLA SILQ) 450 ML PO ONE; -IOHEXOL 350 MG/ML 100 ML (OMNIPAQUE 350) VIAL IV ONE; -NS 100 ML (IVPB) BAG IV ONE
== END 2017-09-20 | disposition home or self-care (01) ==
LOC: PULM 13:00
PROVIDERS: ATTEND Family Medicine
DX: J44.9 Chronic obstructive pulmonary disease, unspecified (principal)

== ENCOUNTER 2017-10-07 12:54 | Outpatient (RCR) | payer MEDICARE, MEDICAID ==
[~2017-10-07 12:54] MED LIST changes: -ROSU10TA24 PO; +ROSU10TA26 PO
[2017-11-19] MEDS ORDERED: PRD20T PO ×2 (21:51→21:59)
[2017-11-19] MEDS ORDERED: LORA-405 PO (21:59)
== END 2017-12-20 | disposition home or self-care (01) ==
LOC: PULM 12:54
PROVIDERS: ATTEND Family Medicine
DX: J44.9 Chronic obstructive pulmonary disease, unspecified (principal)

== ENCOUNTER 2017-11-19 16:41 | Emergency (ER) | payer MEDICARE, MEDICAID ==
[~2017-11-19] VITALS: Ht 157.5 cm; Wt 107.0 kg
--- OUTSIDE RECORDS SUMMARY | 2017-11-19 16:52 | XMS REPORT ---
Author Author ANDREI Elliott Organization [facility] Address Unknown Care Team Providers Care Filling Operator Name Role Phone ANDREI Elliott Unavailable PROBLEMS Type Condition ICD9-CM Code [id number] Code Onset Dates Condition Status SNOMED Code Problem Oral lesion K13.70 Active 481011146 Problem Major depressive disorder, recurrent episode, unspecified severity F33.9 Active 85121313 Problem Chronic respiratory failure, unsp w hypoxia or hypercapnia J96.10 Active 66655925 Problem Alcohol use disorder, severe, in early remission, dependence F10.21 Active 43028183 Problem Wheezing 786.07 Active 53994397 Problem Alcohol use disorder, severe, in sustained remission, dependence F10.21 Active 91311809 Problem Heartburn 787.1 Active 63264705 Problem Major depression, recurrent, chronic F33.9 Active 09177873 Problem Generalized anxiety disorder F41.1 Active 39193171 Problem Amphetamine use disorder, moderate, dependence F15.20 Active 09713004 Problem Major depressive disorder, recurrent, moderate F33.1 Active 18069026 Problem Allergic rhinitis, cause unspecified 477.9 Active 98462708 Problem Diabetes with other specified manifestations, type II or unspecified type, not stated as uncontrolled 250.80 Active 571943121 Problem Other specified local infections of skin and subcutaneous tissue 686.8 Active 253915178 Problem Other specified menopausal and postmenopausal disorder 627.8 Active 776600515 Problem Chronic obstructive pulmonary disease, unspecified COPD type J44.9 Active 86263146 Problem Palpitation R00.2 Active 11742871 Problem Diabetes 250.00 Active 68688187 Problem Type 2 diabetes mellitus with diabetic neuropathy E11.40 Active 09903896 Problem Chest pain, unspecified chest pain type R07.9 Active 83669972 Problem Anxiety F41.9 Active 89693443 ALLERGIES No Information SOCIAL HISTORY Never Assessed PLAN OF CARE VITAL SIGNS MEDICATIONS Unknown Medications RESULTS No Results PROCEDURES No Known procedures IMMUNIZATIONS No Known Immunizations MEDICAL (GENERAL) HISTORY Type Description Date Medical History chronic obstructive pulmonary disease (COPD) Medical History interstital lung disease Medical History obesity Medical History anxiety Medical History hx of drug abuse, overdose Medical History depression Medical History hyperlipidemia Medical History type II diabetes Medical History essential tremor Medical History myalgias Medical History genital herpes Medical History cervical dysplasia (HPV) Surgical History tubal ligation Surgical History section Surgical History loop electrosurgical excision procedure (LEEP) 1999 Surgical History cholecystectomy Surgical History retinal laser repair x2 Surgical History Heart cath 08/27/2015 Hospitalization History Multiple admissions for lung disease Hospitalization History Overdose on Xanax and drank large amount vodka 04/2008 Hospitalization History COPD 06/2015 Hospitalization History Sepsis 12/2015 Hospitalization History COPD 12/2015 Hospitalization History COPD 11/2016 Hospitalization History inpt psych for depression. 2003
--- OUTSIDE RECORDS SUMMARY | 2017-11-19 16:53 | XMS REPORT ---
Author Author ANDREI Elliott Organization [facility] Address Unknown Care Team Providers Care Correction Officer [facility] Name Role Phone ANDREI Elliott Unavailable PROBLEMS Type Condition ICD9-CM Code [id number] Code Onset Dates Condition Status SNOMED Code Problem Oral lesion K13.70 Active 452958719 Problem Major depressive disorder, recurrent episode, unspecified severity F33.9 Active 62248598 Problem Chronic respiratory failure, unsp w hypoxia or hypercapnia J96.10 Active 57392174 Problem Alcohol use disorder, severe, in early remission, dependence F10.21 Active 95288344 Problem Wheezing 786.07 Active 02368169 Problem Alcohol use disorder, severe, in sustained remission, dependence F10.21 Active 75005859 Problem Heartburn 787.1 Active 31828112 Problem Major depression, recurrent, chronic F33.9 Active 42318522 Problem Generalized anxiety disorder F41.1 Active 87265866 Problem Amphetamine use disorder, moderate, dependence F15.20 Active 82378039 Problem Major depressive disorder, recurrent, moderate F33.1 Active 62457112 Problem Allergic rhinitis, cause unspecified 477.9 Active 25897978 Problem Diabetes with other specified manifestations, type II or unspecified type, not stated as uncontrolled 250.80 Active 126165766 Problem Other specified local infections of skin and subcutaneous tissue 686.8 Active 617373525 Problem Other specified menopausal and postmenopausal disorder 627.8 Active 959806290 Problem Chronic obstructive pulmonary disease, unspecified COPD type J44.9 Active 24945652 Problem Palpitation R00.2 Active 06795192 Problem Diabetes 250.00 Active 91131617 Problem Type 2 diabetes mellitus with diabetic neuropathy E11.40 Active 09512650 Problem Chest pain, unspecified chest pain type R07.9 Active 64562089 Problem Anxiety F41.9 Active 53836518 ALLERGIES No Information SOCIAL HISTORY Never Assessed [...]
--- OUTSIDE RECORDS SUMMARY | 2017-11-19 16:54 | XMS REPORT ---
Author Author ANDREI Elliott Organization [facility] Address Unknown Care Team Providers Care Janitorial Supervisor Name Role Phone ANDREI Elliott Unavailable PROBLEMS Type Condition ICD9-CM Code [id number] Code Onset Dates Condition Status SNOMED Code Problem Oral lesion K13.70 Active 886351064 Problem Major depressive disorder, recurrent episode, unspecified severity F33.9 Active 97255581 Problem Chronic respiratory failure, unsp w hypoxia or hypercapnia J96.10 Active 85972324 Problem Alcohol use disorder, severe, in early remission, dependence F10.21 Active 93267277 Problem Wheezing 786.07 Active 63629555 Problem Alcohol use disorder, severe, in sustained remission, dependence F10.21 Active 21031438 Problem Heartburn 787.1 Active 28822288 Problem Major depression, recurrent, chronic F33.9 Active 24147000 Problem Generalized anxiety disorder F41.1 Active 91216263 Problem Amphetamine use disorder, moderate, dependence F15.20 Active 85013605 Problem Major depressive disorder, recurrent, moderate F33.1 Active 27725296 Problem Allergic rhinitis, cause unspecified 477.9 Active 23012660 Problem Diabetes with other specified manifestations, type II or unspecified type, not stated as uncontrolled 250.80 Active 813360928 Problem Other specified local infections of skin and subcutaneous tissue 686.8 Active 887846651 Problem Other specified menopausal and postmenopausal disorder 627.8 Active 545004002 Problem Chronic obstructive pulmonary disease, unspecified COPD type J44.9 Active 55680536 Problem Palpitation R00.2 Active 15512135 Problem Diabetes 250.00 Active 29280308 Problem Type 2 diabetes mellitus with diabetic neuropathy E11.40 Active 98337945 Problem Chest pain, unspecified chest pain type R07.9 Active 33198004 Problem Anxiety F41.9 Active 95682079 ALLERGIES Substance Reaction Event Type Date Status Codeine Phosphate Unknown Drug Allergy January, Active SOCIAL HISTORY Never Assessed PLAN OF CARE Activity Details Follow Up 6 Weeks Reason: VITAL SIGNS Height 62 in 2017-01-25 Weight 244.9 lbs 2017-01-25 Heart Rate 104 bpm 2017-01-25 Respiratory Rate 24 2017-01-25 BMI 44.79 kg/m2 2017-01-25 Blood pressure systolic 120 mmHg 2017-01-25 Blood pressure diastolic 72 mmHg 2017-01-25 MEDICATIONS Medication Instructions Dosage Frequency Start Date End Date Duration Status Mirtazapine 15 MG Orally Once a day 1 tablet at bedtime 24h Nov, 30 days Active HydrOXYzine HCl 50 MG Orally three times a day 1 tablet as needed 8h 30 days Active Jardiance 10 MG Orally Once a day 1 tablet 24h Active Loratadine 10 MG take 1 tablet by Oral route 1 time per day take at hs 24h Aug, Active Ibuprofen 800 MG TAKE 1 TABLET BY MOUTH THREE TIMES DAILY WITH FOOD MUST LAST 30 DAYS 30 Active Oxygen 2-3 L/NC nasal continuous as directed January, Active Symbicort 160-4.5 MCG/ACT Inhalation Twice a day 2 puffs 12h Apr, Active ProAir HFA 108 (90 Base) MCG/ACT INHALE 2 PUFFS BY MOUTH EVERY FOUR HOURS NEEDED FOR SHORTNESS OF BREATH OR COUGH 17 Active metformin 500 mg take 1 tablet 12h Sep, Active TRUEtest Test USE TO TEST BLOOD GLUCOSE ONCE DAILY 50 Active Fluvoxamine Maleate 100 MG Orally Twice a day 1 tablet 12h January, 30 day(s) Active Ipratropium-Albuterol 0.5-2.5 (3) MG/3ML Inhalation Four times a day 3 ml 6h January, Active Test strips Test Strips test blood sugar Active Trulicity 0.75 MG/0.5ML 0.5 ml Active PredniSONE 10 MG Orally Once a day 1 tablet 24h Active Tresiba FlexTouch 100 UNIT/ML Active Daliresp 500 mcg take 1 tablet (500 mcg) by oral route once daily Jul, Active Trazodone HCl 100 MG Orally Once a day 1 tablet at bedtime 24h Nov, 30 days Active Lancets Active Neurontin 600 MG Orally Three times a day 1 tablet 8h Aug, 30 days Active Nebulizer 1 as directed Feb, Active Omeprazole 20 MG Orally Once a day 1 capsule 24h 30 Active Xanax 0.5 MG Orally Twice a day 1 tablet 12h Aug, 30 days Active RESULTS No Results PROCEDURES Procedure Date Ordered Result Body Site [facility] VISIT ESTABLISHED PATIENT January 25, 2017 IMMUNIZATIONS No Known Immunizations MEDICAL (GENERAL) HISTORY [...] lung disease Hospitalization History Overdose on Xanax 04/2008 Hospitalization History COPD 06/2015 Hospitalization History Sepsis 12/2015 Hospitalization History COPD 12/2015 Hospitalization History COPD 11/2016
--- OUTSIDE RECORDS SUMMARY | 2017-11-19 17:22 | XMS REPORT | Continuity of Care Document ---
Author Author [facility] Address Unknown Phone Unavailable Allergies Active Description Code Type Severity Reaction Onset Reported/Identified Relationship to Patient Clinical Status Yes Pyridium Drug Allergy 09/02/2010 Yes Pyridium Drug Allergy N/A N/A 09/02/2010 Yes codeine Drug Allergy N/A N/A 06/16/2013 Yes phenazopyridine [id number] Drug Allergy Mild ITCHING 03/27/2014 Yes codeine [id number] Drug Allergy Unknown N/A 03/27/2014 Yes No Known Drug Allergies [id number] Drug Allergy Unknown N/A 03/29/2016 Yes codeine [id number] Drug Allergy Moderate hives 05/14/2016 Medications There is no data. Problems Date Dx Coded Attending Type Code Diagnosis Diagnosed By 08/07/2008 110.4 Dermatophytosis Tinea Pedis 08/07/2008 788.1 Dysuria 08/07/2008 DON POOL MD 110.4 Dermatophytosis Tinea Pedis 08/07/2008 DON POOL MD 788.1 Dysuria 08/07/2008 ANNEL JJ APRN 110.4 Dermatophytosis Tinea Pedis 08/07/2008 ANNEL JJ APRN 788.1 Dysuria 08/07/2008 SHANNA LOCKETT DO 110.4 Dermatophytosis Tinea Pedis 08/07/2008 SHANNA LOCKETT DO 788.1 Dysuria 08/07/2008 LAURA BENNETT MD 110.4 Dermatophytosis Tinea Pedis 08/07/2008 LAURA BENNETT MD 788.1 Dysuria 08/07/2008 SHANNA LOCKETT DO 110.4 Dermatophytosis Tinea Pedis 08/07/2008 SHANNA LOCKETT DO 788.1 Dysuria 08/07/2008 110.4 Dermatophytosis Tinea Pedis 08/07/2008 788.1 Dysuria 08/07/2008 110.4 Dermatophytosis Tinea Pedis 08/07/2008 788.1 Dysuria 08/07/2008 BINDU PALM MD 110.4 Dermatophytosis Tinea Pedis 08/07/2008 BINDU PALM MD 788.1 Dysuria 08/07/2008 110.4 Dermatophytosis Tinea Pedis 08/07/2008 788.1 Dysuria 08/07/2008 110.4 Dermatophytosis Tinea Pedis 08/07/2008 788.1 Dysuria 08/07/2008 110.4 Dermatophytosis Tinea Pedis 08/07/2008 788.1 Dysuria 08/07/2008 110.4 Dermatophytosis Tinea Pedis 08/07/2008 788.1 Dysuria 08/07/2008 110.4 Dermatophytosis Tinea Pedis 08/07/2008 788.1 Dysuria 08/07/2008 110.4 Dermatophytosis Tinea Pedis 08/07/2008 788.1 Dysuria 08/07/2008 110.4 Dermatophytosis Tinea Pedis 08/07/2008 788.1 Dysuria 08/07/2008 BINDU PALM MD 110.4 Dermatophytosis Tinea Pedis 08/07/2008 BINDU PALM MD 788.1 Dysuria 08/07/2008 BINDU PALM MD 110.4 Dermatophytosis Tinea Pedis 08/07/2008 BINDU PALM MD 788.1 Dysuria 08/07/2008 LEVY DOGRANTA K 110.4 Dermatophytosis Tinea Pedis 08/07/2008 LOCKETT DO SHANNA K 788.1 Dysuria 08/07/2008 BINDU PALM MD M 110.4 Dermatophytosis Tinea Pedis 08/07/2008 BINDU PALM MD 788.1 Dysuria 08/07/2008 LOWELL MARIO APRNNDA S 110.4 Dermatophytosis Tinea Pedis 08/07/2008 SHELBI DEL TORO CARLINE S 788.1 Dysuria 08/07/2008 SHELBI DEL TORO CARLINE S 110.4 Dermatophytosis Tinea Pedis 08/07/2008 CARLINE MARIO APRN S 788.1 Dysuria 08/07/2008 LAURA BENNETT MD 110.4 Dermatophytosis Tinea Pedis 08/07/2008 LAURA BENNETT MD 788.1 Dysuria 08/07/2008 ELIZABETH ROBIN MD N 110.4 Dermatophytosis Tinea Pedis 08/07/2008 ELIZABETH ROBIN MD N 788.1 Dysuria 08/07/2008 LAURA BENNETT MD 110.4 Dermatophytosis Tinea Pedis 08/07/2008 LAURA BENNETT MD 788.1 Dysuria 08/07/2008 LOCKETT DO, SHANNA K 110.4 Dermatophytosis Tinea Pedis 08/07/2008 LOCKETT DO, SHANNA K 788.1 Dysuria 08/07/2008 MARTÍNEZ MARY APRN N 110.4 Dermatophytosis Tinea Pedis 08/07/2008 SUJATHA MARY APRNCY N 788.1 Dysuria 08/07/2008 BINDU PALM MD M 110.4 Dermatophytosis Tinea Pedis 08/07/2008 BINDU PALM MD M 788.1 Dysuria 08/07/2008 SUJATHA MARY APRNCY N 110.4 Dermatophytosis Tinea Pedis 08/07/2008 JAYLENE PURDY APRN, MARTÍNEZ N 788.1 Dysuria 08/07/2008 ANNEL JJ APRN 110.4 Dermatophytosis Tinea Pedis 08/07/2008 ANNEL JJ APRN 788.1 Dysuria 08/07/2008 LAURA BENNETT MD 110.4 Dermatophytosis Tinea Pedis 08/07/2008 LAURA BENNETT MD 788.1 Dysuria 08/07/2008 DION SOTO APRN L 110.4 Dermatophytosis Tinea Pedis 08/07/2008 DION SOTO APRN L 788.1 Dysuria 08/07/2008 LAURA BENNETT MD 110.4 Dermatophytosis Tinea Pedis 08/07/2008 LAURA BENNETT MD 788.1 Dysuria 08/07/2008 MADL BRANCH CONTROLLER, DION L 110.4 Dermatophytosis Tinea Pedis 08/07/2008 MADL BRANCH CONTROLLER, DION L 788.1 Dysuria 08/07/2008 LOCKETT DO, SHANNA K 110.4 Dermatophytosis Tinea Pedis 08/07/2008 LOCKETT DO, SHANNA K 788.1 Dysuria 08/07/2008 LOCKETT DO, SHANNA K 110.4 Dermatophytosis Tinea Pedis 08/07/2008 LOCKETT DO, SHANNA K 788.1 Dysuria 08/07/2008 MADL BRANCH CONTROLLER, DION L 110.4 Dermatophytosis Tinea Pedis 08/07/2008 MADL BRANCH CONTROLLER, DION L 788.1 Dysuria 08/07/2008 MADL BRANCH CONTROLLER, DION L 110.4 Dermatophytosis Tinea Pedis 08/07/2008 MADL BRANCH CONTROLLER, DION L 788.1 Dysuria 08/07/2008 MADL BRANCH CONTROLLER, DION L 110.4 Dermatophytosis Tinea Pedis 08/07/2008 MADL BRANCH CONTROLLER, DION L 788.1 Dysuria 08/07/2008 LOCKETT DO, SHANNA K 110.4 Dermatophytosis Tinea Pedis 08/07/2008 LOCKETT DO, SHANNA K 788.1 Dysuria 08/07/2008 MADL BRANCH CONTROLLER, DION L 110.4 Dermatophytosis Tinea Pedis 08/07/2008 MADL BRANCH CONTROLLER, DION L 788.1 Dysuria 08/07/2008 MADL BRANCH CONTROLLER, DION L 110.4 Dermatophytosis Tinea Pedis 08/07/2008 MADL BRANCH CONTROLLER, DION L 788.1 Dysuria 08/07/2008 MADL BRANCH CONTROLLER, DION L 110.4 Dermatophytosis Tinea Pedis 08/07/2008 MADL BRANCH CONTROLLER, DION L 788.1 Dysuria 08/07/2008 MADL BRANCH CONTROLLER, DION L 110.4 Dermatophytosis Tinea Pedis 08/07/2008 MADL BRANCH CONTROLLER, DION L 788.1 Dysuria 08/07/2008 MADL BRANCH CONTROLLER, DION L 110.4 Dermatophytosis Tinea Pedis 08/07/2008 MADL BRANCH CONTROLLER, DION L 788.1 Dysuria 08/07/2008 MADL BRANCH CONTROLLER, DION L 110.4 Dermatophytosis Tinea Pedis 08/07/2008 MADL BRANCH CONTROLLER, DION L 788.1 Dysuria 08/07/2008 MADL BRANCH CONTROLLER, DION L 110.4 Dermatophytosis Tinea Pedis 08/07/2008 MADL BRANCH CONTROLLER, DION L 788.1 Dysuria 08/07/2008 MADL BRANCH CONTROLLER, DION L 110.4 Dermatophytosis Tinea Pedis 08/07/2008 MADL BRANCH CONTROLLER, DION L 788.1 Dysuria 08/07/2008 MADL BRANCH CONTROLLER, DION L 110.4 Dermatophytosis Tinea Pedis 08/07/2008 MADL BRANCH CONTROLLER, DION L 788.1 Dysuria 08/07/2008 LOCKETT DO, SHANNA K 110.4 Dermatophytosis Tinea Pedis 08/07/2008 LOCKETT DO, SHANNA K 788.1 Dysuria 08/07/2008 CASTELLANO BRANCH CONTROLLER, BARRY R 110.4 Dermatophytosis Tinea Pedis 08/07/2008 CASTELLANO BRANCH CONTROLLER, BARRY R 788.1 Dysuria 08/07/2008 LOCKETT DO, SHANNA K 110.4 Dermatophytosis Tinea Pedis 08/07/2008 LOCKETT DO, SHANNA K 788.1 Dysuria 08/13/2008 110.2 Dermatophytosis Of Hand 08/13/2008 368.10 Visual Disturbance Unspecified 08/13/2008 780.79 Malaise And Fatigue 08/13/2008 DON POOL MD 110.2 Dermatophytosis Of Hand 08/13/2008 DON POOL MD 368.10 Visual Disturbance Unspecified 08/13/2008 DON POOL MD 780.79 Malaise And Fatigue 08/13/2008 ANNEL JJ APRN 110.2 Dermatophytosis Of Hand 08/13/2008 ANNEL JJ APRN 368.10 Visual Disturbance Unspecified 08/13/2008 ANNEL JJ APRN 780.79 Malaise And Fatigue 08/13/2008 SHANNA LOCKETT DO 110.2 Dermatophytosis Of Hand 08/13/2008 SHANNA LOCKETT DO K 368.10 Visual Disturbance Unspecified 08/13/2008 SHANNA LOCKETT DO K 780.79 Malaise And Fatigue 08/13/2008 LAURA BENNETT MD 110.2 Dermatophytosis Of Hand 08/13/2008 LAURA BENNETT MD 368.10 Visual Disturbance Unspecified 08/13/2008 LAURA BENNETT MD 780.79 Malaise And Fatigue 08/13/2008 SHANNA LOCKETT DO K 110.2 Dermatophytosis Of Hand 08/13/2008 SHANNA LOCKETT DO K 368.10 Visual Disturbance Unspecified 08/13/2008 SHANNA LOCKETT DO K 780.79 Malaise And Fatigue 08/13/2008 110.2 Dermatophytosis Of Hand 08/13/2008 368.10 Visual Disturbance Unspecified 08/13/2008 780.79 Malaise And Fatigue 08/13/2008 110.2 Dermatophytosis Of Hand 08/13/2008 368.10 Visual Disturbance Unspecified 08/13/2008 780.79 Malaise And Fatigue 08/13/2008 BINDU PALM MD 110.2 Dermatophytosis Of Hand 08/13/2008 BINDU PALM MD 368.10 Visual Disturbance Unspecified 08/13/2008 BINDU PALM MD 780.79 Malaise And Fatigue 08/13/2008 110.2 Dermatophytosis Of Hand 08/13/2008 368.10 Visual Disturbance Unspecified 08/13/2008 780.79 Malaise And Fatigue 08/13/2008 110.2 Dermatophytosis Of Hand 08/13/2008 368.10 Visual Disturbance Unspecified 08/13/2008 780.79 Malaise And Fatigue 08/13/2008 110.2 Dermatophytosis Of Hand 08/13/2008 368.10 Visual Disturbance Unspecified 08/13/2008 780.79 Malaise And Fatigue 08/13/2008 110.2 Dermatophytosis Of Hand 08/13/2008 368.10 Visual Disturbance Unspecified 08/13/2008 780.79 Malaise And Fatigue 08/13/2008 110.2 Dermatophytosis Of Hand 08/13/2008 368.10 Visual Disturbance Unspecified 08/13/2008 780.79 Malaise And Fatigue 08/13/2008 110.2 Dermatophytosis Of Hand 08/13/2008 368.10 Visual Disturbance Unspecified 08/13/2008 780.79 Malaise And Fatigue 08/13/2008 110.2 Dermatophytosis Of Hand 08/13/2008 368.10 Visual Disturbance Unspecified 08/13/2008 780.79 Malaise And Fatigue 08/13/2008 BINDU PALM MD 110.2 Dermatophytosis Of Hand 08/13/2008 BINDU PALM MD 368.10 Visual Disturbance Unspecified 08/13/2008 BINDU PALM MD 780.79 Malaise And Fatigue 08/13/2008 BINDU PALM MD 110.2 Dermatophytosis Of Hand 08/13/2008 BINDU PALM MD 368.10 Visual Disturbance Unspecified 08/13/2008 BINDU PALM MD 780.79 Malaise And Fatigue 08/13/2008 LOCKETT DO SHANNA K 110.2 Dermatophytosis Of Hand 08/13/2008 GRANT LOCKETT DOA K 368.10 Visual Disturbance Unspecified 08/13/2008 LOCKETT DO SHANNA K 780.79 Malaise And Fatigue 08/13/2008 BINDU PALM MD 110.2 Dermatophytosis Of Hand 08/13/2008 BINDU PALM MD 368.10 Visual Disturbance Unspecified 08/13/2008 BINDU PALM MD 780.79 Malaise And Fatigue 08/13/2008 CARLINE MARIO APRN S 110.2 Dermatophytosis Of Hand 08/13/2008 CAROLYN MARIO APRNA S 368.10 Visual Disturbance Unspecified 08/13/2008 LOWELL MARIO APRNNDA S 780.79 Malaise And Fatigue 08/13/2008 LOWELL MARIO APRNNDA S 110.2 Dermatophytosis Of Hand 08/13/2008 CAROLYN MARIO APRNA S 368.10 Visual Disturbance Unspecified 08/13/2008 SHELBI DEL TORO CARLINE S 780.79 Malaise And Fatigue 08/13/2008 LAURA BENNETT MD 110.2 Dermatophytosis Of Hand 08/13/2008 LAURA BENNETT MD 368.10 Visual Disturbance Unspecified 08/13/2008 LAURA BENNETT MD 780.79 Malaise And Fatigue 08/13/2008 ELIZABETH ROBIN MD N 110.2 Dermatophytosis Of Hand 08/13/2008 ELIZABETH ROBIN MD N 368.10 Visual Disturbance Unspecified 08/13/2008 ELIZABETH RBOIN MD N 780.79 Malaise And Fatigue 08/13/2008 LAURA BENNETT MD 110.2 Dermatophytosis Of Hand 08/13/2008 LAURA BENNETT MD 368.10 Visual Disturbance Unspecified 08/13/2008 LAURA BENNETT MD 780.79 Malaise And Fatigue 08/13/2008 LOCKETT DO, SHANNA K 110.2 Dermatophytosis Of Hand 08/13/2008 LOCKETT DO, SHANNA K 368.10 Visual Disturbance Unspecified 08/13/2008 LOCKETT DO, SHANNA K 780.79 Malaise And Fatigue 08/13/2008 JAYLENE PURDY APRN, MARTÍNEZ N 110.2 Dermatophytosis Of Hand 08/13/2008 JAYLENE PURDY APRN, MARTÍNEZ N 368.10 Visual Disturbance Unspecified 08/13/2008 JAYLENE PURDY APRN, MARTÍNEZ N 780.79 Malaise And Fatigue 08/13/2008 BINDU PALM MD 110.2 Dermatophytosis Of Hand 08/13/2008 BINDU PALM MD 368.10 Visual Disturbance Unspecified 08/13/2008 BINDU PALM MD 780.79 Malaise And Fatigue 08/13/2008 JAYLENE PURDY APRN, MARTÍNEZ N 110.2 Dermatophytosis Of Hand 08/13/2008 JAYLENE PURDY APRN, MARTÍNEZ N 368.10 Visual Disturbance Unspecified 08/13/2008 JAYLENE PURDY APRN, MARTÍNEZ N 780.79 Malaise And Fatigue 08/13/2008 ANNEL JJ APRN 110.2 Dermatophytosis Of Hand 08/13/2008 ANNEL JJ APRN 368.10 Visual Disturbance Unspecified 08/13/2008 ANNEL JJ APRN 780.79 Malaise And Fatigue 08/13/2008 LAURA BENNETT MD 110.2 Dermatophytosis Of Hand 08/13/2008 LAURA BENNETT MD 368.10 Visual Disturbance Unspecified 08/13/2008 LAURA BENNETT MD 780.79 Malaise And Fatigue 08/13/2008 MADL BRANCH CONTROLLER, DION L 110.2 Dermatophytosis Of Hand 08/13/2008 MADL BRANCH CONTROLLER, DION L 368.10 Visual Disturbance Unspecified 08/13/2008 MADL BRANCH CONTROLLER, DION L 780.79 Malaise And Fatigue 08/13/2008 LAURA EBNNETT MD 110.2 Dermatophytosis Of Hand 08/13/2008 LAURA BENNETT MD 368.10 Visual Disturbance Unspecified 08/13/2008 LAURA BENNETT MD 780.79 Malaise And Fatigue 08/13/2008 MADL BRANCH CONTROLLER, DION L 110.2 Dermatophytosis Of Hand 08/13/2008 MADL BRANCH CONTROLLER, DION L 368.10 Visual Disturbance Unspecified 08/13/2008 MADL BRANCH CONTROLLER, DION L 780.79 Malaise And Fatigue 08/13/2008 LOCKETT DO, SHANNA K 110.2 Dermatophytosis Of Hand 08/13/2008 LOCKETT DO, SHANNA K 368.10 Visual Disturbance Unspecified 08/13/2008 LOCKETT DO, SHANNA K 780.79 Malaise And Fatigue 08/13/2008 LOCKETT DO, SHANNA K 110.2 Dermatophytosis Of Hand 08/13/2008 LOCKETT DO, SHANNA K 368.10 Visual Disturbance Unspecified 08/13/2008 LOCKETT DO, SHANNA K 780.79 Malaise And Fatigue 08/13/2008 MADL BRANCH CONTROLLER, DION L 110.2 Dermatophytosis Of Hand 08/13/2008 MADL BRANCH CONTROLLER, DION L 368.10 Visual Disturbance Unspecified 08/13/2008 MADL BRANCH CONTROLLER, DION L 780.79 Malaise And Fatigue 08/13/2008 MADL BRANCH CONTROLLER, DION L 110.2 Dermatophytosis Of Hand 08/13/2008 MADL BRANCH CONTROLLER, DION L 368.10 Visual Disturbance Unspecified 08/13/2008 MADL BRANCH CONTROLLER, DION L 780.79 Malaise And Fatigue 08/13/2008 MADL BRANCH CONTROLLER, DION L 110.2 Dermatophytosis Of Hand 08/13/2008 MADL BRANCH CONTROLLER, DION L 368.10 Visual Disturbance Unspecified 08/13/2008 MADL BRANCH CONTROLLER, DION L 780.79 Malaise And Fatigue 08/13/2008 LOCKETT DO, SHANNA K 110.2 Dermatophytosis Of Hand 08/13/2008 LOCKETT DO, SHANNA K 368.10 Visual Disturbance Unspecified 08/13/2008 LOCKETT DO, SHANNA K 780.79 Malaise And Fatigue 08/13/2008 MADL BRANCH CONTROLLER, DION L 110.2 Dermatophytosis Of Hand 08/13/2008 MADL BRANCH CONTROLLER, DION L 368.10 Visual Disturbance Unspecified 08/13/2008 MADL BRANCH CONTROLLER, DION L 780.79 Malaise And Fatigue 08/13/2008 MADL BRANCH CONTROLLER, DION L 110.2 Dermatophytosis Of Hand 08/13/2008 MADL BRANCH CONTROLLER, DION L 368.10 Visual Disturbance Unspecified 08/13/2008 MADL BRANCH CONTROLLER, DION L 780.79 Malaise And Fatigue 08/13/2008 MADL BRANCH CONTROLLER, DION L 110.2 Dermatophytosis Of Hand 08/13/2008 MADL BRANCH CONTROLLER, DION L 368.10 Visual Disturbance Unspecified 08/13/2008 MADL BRANCH CONTROLLER, DION L 780.79 Malaise And Fatigue 08/13/2008 MADL BRANCH CONTROLLER, DION L 110.2 Dermatophytosis Of Hand 08/13/2008 MADL BRANCH CONTROLLER, DION L 368.10 Visual Disturbance Unspecified 08/13/2008 MADL BRANCH CONTROLLER, DION L 780.79 Malaise And Fatigue 08/13/2008 MADL BRANCH CONTROLLER, DION L 110.2 Dermatophytosis Of Hand 08/13/2008 MADL BRANCH CONTROLLER, DION L 368.10 Visual Disturbance Unspecified 08/13/2008 MADL BRANCH CONTROLLER, DION L 780.79 Malaise And Fatigue 08/13/2008 MADL BRANCH CONTROLLER, DION L 110.2 Dermatophytosis Of Hand 08/13/2008 MADL BRANCH CONTROLLER, DION L 368.10 Visual Disturbance Unspecified 08/13/2008 MADL BRANCH CONTROLLER, DION L 780.79 Malaise And Fatigue 08/13/2008 MADL BRANCH CONTROLLER, DION L 110.2 Dermatophytosis Of Hand 08/13/2008 MADL BRANCH CONTROLLER, DION L 368.10 Visual Disturbance Unspecified 08/13/2008 MADL BRANCH CONTROLLER, DION L 780.79 Malaise And Fatigue 08/13/2008 MADL BRANCH CONTROLLER, DION L 110.2 Dermatophytosis Of Hand 08/13/2008 MADL BRANCH CONTROLLER, DION L 368.10 Visual Disturbance Unspecified 08/13/2008 MADL BRANCH CONTROLLER, DION L 780.79 Malaise And Fatigue 08/13/2008 MADL BRANCH CONTROLLER, DION L 110.2 Dermatophytosis Of Hand 08/13/2008 MADL BRANCH CONTROLLER, DION L 368.10 Visual Disturbance Unspecified 08/13/2008 MADL BRANCH CONTROLLER, DION L 780.79 Malaise And Fatigue 08/13/2008 LOCKETT DO, SHANNA K 110.2 Dermatophytosis Of Hand 08/13/2008 LOCKETT DO, SHANNA K 368.10 Visual Disturbance Unspecified 08/13/2008 LOCKETT DO, SHANNA K 780.79 Malaise And Fatigue 08/13/2008 JACKELINE CASTELLANO APRNRICIA R 110.2 Dermatophytosis Of Hand 08/13/2008 CASTELLANO BRANCH CONTROLLER, BARRY R 368.10 Visual Disturbance Unspecified 08/13/2008 GRAY DEL TORO BARRY R 780.79 Malaise And Fatigue 08/13/2008 LOCKETT DO, SHANNA K 110.2 Dermatophytosis Of Hand 08/13/2008 LOCKETT DO, SHANNA K 368.10 Visual Disturbance Unspecified 08/13/2008 LOCKETT DO, SHANNA K 780.79 Malaise And Fatigue 01/24/2009 466.0 Acute Bronchitis 01/24/2009 786.2 Cough 01/24/2009 DON POOL MD 466.0 Acute Bronchitis 01/24/2009 DON POOL MD 786.2 Cough 01/24/2009 ANNEL JJ APRN 466.0 Acute Bronchitis 01/24/2009 ANNEL JJ APRN 786.2 Cough 01/24/2009 LOCKETT DO SHANNA K 466.0 Acute Bronchitis 01/24/2009 LOCKETT DO, SHANNA K 786.2 Cough 01/24/2009 LAURA BENNETT MD 466.0 Acute Bronchitis 01/24/2009 LAURA BENNETT MD 786.2 Cough 01/24/2009 LOCKETT DO, SHANNA K 466.0 Acute Bronchitis 01/24/2009 LOCKETT DO, SHANNA K 786.2 Cough 01/24/2009 466.0 Acute Bronchitis 01/24/2009 786.2 Cough 01/24/2009 466.0 Acute Bronchitis 01/24/2009 786.2 Cough 01/24/2009 BINDU PALM MD 466.0 Acute Bronchitis 01/24/2009 BINDU PALM MD 786.2 Cough 01/24/2009 466.0 Acute Bronchitis 01/24/2009 786.2 Cough 01/24/2009 466.0 Acute Bronchitis 01/24/2009 786.2 Cough 01/24/2009 466.0 Acute Bronchitis 01/24/2009 786.2 Cough 01/24/2009 466.0 Acute Bronchitis 01/24/2009 786.2 Cough 01/24/2009 466.0 Acute Bronchitis 01/24/2009 786.2 Cough 01/24/2009 466.0 Acute Bronchitis 01/24/2009 786.2 Cough 01/24/2009 466.0 Acute Bronchitis 01/24/2009 786.2 Cough 01/24/2009 BINDU PALM MD 466.0 Acute Bronchitis 01/24/2009 BINDU PALM MD 786.2 Cough 01/24/2009 BINDU PALM MD 466.0 Acute Bronchitis 01/24/2009 BINDU PALM MD 786.2 Cough 01/24/2009 LOCKETT DOGRANTA K 466.0 Acute Bronchitis 01/24/2009 LOCKETT DO, SHANNA K 786.2 Cough 01/24/2009 BINDU PALM MD 466.0 Acute Bronchitis 01/24/2009 BINDU PALM MD 786.2 Cough 01/24/2009 SHELBI BRANCH CONTROLLER, CARLINE S 466.0 Acute Bronchitis 01/24/2009 SHELBI BRANCH CONTROLLER, CARLINE S 786.2 Cough 01/24/2009 SHELBI BRANCH CONTROLLER, CARLINE S 466.0 Acute Bronchitis 01/24/2009 SHELBI BRANCH CONTROLLER, CARLINE S 786.2 Cough 01/24/2009 LAURA BENNETT MD 466.0 Acute Bronchitis 01/24/2009 LAURA BENNETT MD 786.2 Cough 01/24/2009 LOBITO MOREIRA, ELIZABETH N 466.0 Acute Bronchitis 01/24/2009 LOBITO MOREIRA, ELIZABETH N 786.2 Cough 01/24/2009 LAURA BENNETT MD 466.0 Acute Bronchitis 01/24/2009 LAURA BENNETT MD 786.2 Cough 01/24/2009 LOCKETT DO, SHANNA K 466.0 Acute Bronchitis 01/24/2009 LOCKETT DO, SHANNA K 786.2 Cough 01/24/2009 MARIEE CASHERO BRANCH CONTROLLER, MARTÍNEZ N 466.0 Acute Bronchitis 01/24/2009 MARIEE CASHERO BRANCH CONTROLLER, MARTÍNEZ N 786.2 Cough 01/24/2009 NÉSTOR MOREIRA, BINDU M 466.0 Acute Bronchitis 01/24/2009 BINDU PALM MD M 786.2 Cough 01/24/2009 MARIEE CASHERO BRANCH CONTROLLER, MARTÍNEZ N 466.0 Acute Bronchitis 01/24/2009 MARIEE CASHERO BRANCH CONTROLLER, MARTÍNEZ N 786.2 Cough 01/24/2009 JJ BRANCH CONTROLLER, ANNEL FRANCES 466.0 Acute Bronchitis 01/24/2009 JJ BRANCH CONTROLLER, ANNEL FRANCES 786.2 Cough 01/24/2009 LAURA BENNETT MD 466.0 Acute Bronchitis 01/24/2009 LAURA BENNETT MD 786.2 Cough 01/24/2009 MADL BRANCH CONTROLLER, DION L 466.0 Acute Bronchitis 01/24/2009 MADL BRANCH CONTROLLER, DION L 786.2 Cough 01/24/2009 LAURA BENNETT MD 466.0 Acute Bronchitis 01/24/2009 LAURA BENNETT MD 786.2 Cough 01/24/2009 MADL BRANCH CONTROLLER, DION L 466.0 Acute Bronchitis 01/24/2009 MADL BRANCH CONTROLLER, DION L 786.2 Cough 01/24/2009 LOCKETT DO, SHANNA K 466.0 Acute Bronchitis 01/24/2009 LOCKETT DO, SHANNA K 786.2 Cough 01/24/2009 LOCKETT DO, SHANNA K 466.0 Acute Bronchitis 01/24/2009 LOCKETT DO, SHANNA K 786.2 Cough 01/24/2009 MADL BRANCH CONTROLLER, DION L 466.0 Acute Bronchitis 01/24/2009 MADL BRANCH CONTROLLER, DION L 786.2 Cough 01/24/2009 MADL BRANCH CONTROLLER, DION L 466.0 Acute Bronchitis 01/24/2009 MADL BRANCH CONTROLLER, DION L 786.2 Cough 01/24/2009 MADL BRANCH CONTROLLER, DION L 466.0 Acute Bronchitis 01/24/2009 MADL BRANCH CONTROLLER, DION L 786.2 Cough 01/24/2009 LOCKETT DO, SHANNA K 466.0 Acute Bronchitis 01/24/2009 LOCKETT DO, SHANNA K 786.2 Cough 01/24/2009 MADL BRANCH CONTROLLER, DION L 466.0 Acute Bronchitis 01/24/2009 MADL BRANCH CONTROLLER, DION L 786.2 Cough 01/24/2009 MADL BRANCH CONTROLLER, DION L 466.0 Acute Bronchitis 01/24/2009 MADL BRANCH CONTROLLER, DION L 786.2 Cough 01/24/2009 MADL BRANCH CONTROLLER, DION L 466.0 Acute Bronchitis 01/24/2009 MADL BRANCH CONTROLLER, DION L 786.2 Cough 01/24/2009 MADL BRANCH CONTROLLER, DION L 466.0 Acute Bronchitis 01/24/2009 MADL BRANCH CONTROLLER, DION L 786.2 Cough 01/24/2009 MADL BRANCH CONTROLLER, DION L 466.0 Acute Bronchitis 01/24/2009 MADL BRANCH CONTROLLER, DION L 786.2 Cough 01/24/2009 MADL BRANCH CONTROLLER, DION L 466.0 Acute Bronchitis 01/24/2009 MADL BRANCH CONTROLLER, DION L 786.2 Cough 01/24/2009 MADL BRANCH CONTROLLER, DION L 466.0 Acute Bronchitis 01/24/2009 MADL BRANCH CONTROLLER, IDON L 786.2 Cough 01/24/2009 MADL BRANCH CONTROLLER, DION L 466.0 Acute Bronchitis 01/24/2009 MADL BRANCH CONTROLLER, DION L 786.2 Cough 01/24/2009 MADL BRANCH CONTROLLER, DION L 466.0 Acute Bronchitis 01/24/2009 MADL BRANCH CONTROLLER, DION L 786.2 Cough 01/24/2009 LOCKETT DO, SHANNA K 466.0 Acute Bronchitis 01/24/2009 LOCKETT DO, SHANNA K 786.2 Cough 01/24/2009 RENO CASTELLANO APRNIA R 466.0 Acute Bronchitis 01/24/2009 CASTELLANO BRANCH CONTROLLER, BARRY R 786.2 Cough 01/24/2009 SHANNA LOCKETT DO K 466.0 Acute Bronchitis 01/24/2009 SHANNA LOCKETT DO K 786.2 Cough 05/17/2009 054.10 HERPES SIMPLEX TYPE II 05/17/2009 799.02 HYPOXIA 05/17/2009 DON POOL MD 054.10 HERPES SIMPLEX TYPE II 05/17/2009 DON POOL MD 799.02 HYPOXIA 05/17/2009 [place] ANNEL YVROSE 054.10 HERPES SIMPLEX TYPE II 05/17/2009 АННА DEL [place] ANNEL YVROSE 799.02 HYPOXIA 05/17/2009 LEVY CARRANZASHANNA 054.10 HERPES SIMPLEX TYPE II 05/17/2009 LEVY CARRANZA SHANNA K 799.02 HYPOXIA 05/17/2009 LAURA BENNETT MD 054.10 HERPES SIMPLEX TYPE II 05/17/2009 LAURA BENNETT MD 799.02 HYPOXIA 05/17/2009 LEVY CARRANZA SHANNA K 054.10 HERPES SIMPLEX TYPE II 05/17/2009 LEVY CARRANZA SHANNA K 799.02 HYPOXIA 05/17/2009 054.10 HERPES SIMPLEX TYPE II 05/17/2009 799.02 HYPOXIA 05/17/2009 054.10 HERPES SIMPLEX TYPE II 05/17/2009 799.02 HYPOXIA 05/17/2009 BINDU PALM MD 054.10 HERPES SIMPLEX TYPE II 05/17/2009 BINDU PALM MD 799.02 HYPOXIA 05/17/2009 054.10 HERPES SIMPLEX TYPE II 05/17/2009 799.02 HYPOXIA 05/17/2009 054.10 HERPES SIMPLEX TYPE II 05/17/2009 799.02 HYPOXIA 05/17/2009 054.10 HERPES SIMPLEX TYPE II 05/17/2009 799.02 HYPOXIA 05/17/2009 054.10 HERPES SIMPLEX TYPE II 05/17/2009 799.02 HYPOXIA 05/17/2009 054.10 HERPES SIMPLEX TYPE II 05/17/2009 799.02 HYPOXIA 05/17/2009 054.10 HERPES SIMPLEX TYPE II 05/17/2009 799.02 HYPOXIA 05/17/2009 054.10 HERPES SIMPLEX TYPE II 05/17/2009 799.02 HYPOXIA 05/17/2009 BINDU PALM MD 054.10 HERPES SIMPLEX TYPE II 05/17/2009 BINDU PALM MD 799.02 HYPOXIA 05/17/2009 BINDU PALM MD 054.10 HERPES SIMPLEX TYPE II 05/17/2009 BINDU PALM MD 799.02 HYPOXIA 05/17/2009 LOCKETT DO, SHANNA K 054.10 HERPES SIMPLEX TYPE II 05/17/2009 LOCKETT DO, SHANNA K 799.02 HYPOXIA 05/17/2009 BINDU PALM MD 054.10 HERPES SIMPLEX TYPE II 05/17/2009 BINDU PALM MD 799.02 HYPOXIA 05/17/2009 CARLINE MARIO APRN S 054.10 HERPES SIMPLEX TYPE II 05/17/2009 CARLINE MARIO APRN S 799.02 HYPOXIA 05/17/2009 CARLINE MARIO APRN S 054.10 HERPES SIMPLEX TYPE II 05/17/2009 LOWELL MARIO APRNNDA S 799.02 HYPOXIA 05/17/2009 LAURA BENNETT MD 054.10 HERPES SIMPLEX TYPE II 05/17/2009 LAURA BENNETT MD 799.02 HYPOXIA 05/17/2009 ELIZABETH ROBIN MD 054.10 HERPES SIMPLEX TYPE II 05/17/2009 ELZIABETH ROBIN MD 799.02 HYPOXIA 05/17/2009 LAURA BENNETT MD 054.10 HERPES SIMPLEX TYPE II 05/17/2009 LAURA BENNETT MD 799.02 HYPOXIA 05/17/2009 LOCKETT DO, SHANNA K 054.10 HERPES SIMPLEX TYPE II 05/17/2009 LOCKETT DO, SHANNA K 799.02 HYPOXIA 05/17/2009 MARTÍNEZ MARY APRN N 054.10 HERPES SIMPLEX TYPE II 05/17/2009 MARTÍNEZ MARY APRN N 799.02 HYPOXIA 05/17/2009 BINDU PALM MD 054.10 HERPES SIMPLEX TYPE II 05/17/2009 BINDU PALM MD 799.02 HYPOXIA 05/17/2009 MARTÍNEZ MARY APRN N 054.10 HERPES SIMPLEX TYPE II 05/17/2009 MARTÍNEZ MARY APRN N 799.02 HYPOXIA 05/17/2009 [place]ННА [place] ANNEL FRANCES 054.10 HERPES SIMPLEX TYPE II 05/17/2009 JJ APRN, ANNEL FRANCES 799.02 HYPOXIA 05/17/2009 LAURA BENNETT MD 054.10 HERPES SIMPLEX TYPE II 05/17/2009 LAURA BENNETT MD 799.02 HYPOXIA 05/17/2009 MAD KATEY, DION L 054.10 HERPES SIMPLEX TYPE II 05/17/2009 MAD BRANCH CONTROLLER, DION L 799.02 HYPOXIA 05/17/2009 LAURA BENNETT MD 054.10 HERPES SIMPLEX TYPE II 05/17/2009 LAURA BENNETT MD 799.02 HYPOXIA 05/17/2009 MAD KATEY, DION L 054.10 HERPES SIMPLEX TYPE II 05/17/2009 [facility] KATEY, DION L 799.02 HYPOXIA 05/17/2009 LOCKETT DO SHANNA K 054.10 HERPES SIMPLEX TYPE II 05/17/2009 LOCKETT DO, SHANNA K 799.02 HYPOXIA 05/17/2009 LOCKETT DO, SHANNA K 054.10 HERPES SIMPLEX TYPE II 05/17/2009 LOCKETT DO, SHANNA K 799.02 HYPOXIA 05/17/2009 MAD BRANCH CONTROLLER, DION L 054.10 HERPES SIMPLEX TYPE II 05/17/2009 MAD BRANCH CONTROLLER, DION L 799.02 HYPOXIA 05/17/2009 MAD BRANCH CONTROLLER, DION L 054.10 HERPES SIMPLEX TYPE II 05/17/2009 MAD BRANCH CONTROLLER, DION L 799.02 HYPOXIA 05/17/2009 MAD BRANCH CONTROLLER, DION L 054.10 HERPES SIMPLEX TYPE II 05/17/2009 MADL BRANCH CONTROLLER, DION L 799.02 HYPOXIA 05/17/2009 LOCKETT DO SHANNA K 054.10 HERPES SIMPLEX TYPE II 05/17/2009 LOCKETT DO, SHANNA K 799.02 HYPOXIA 05/17/2009 MAD BRANCH CONTROLLER, DION L 054.10 HERPES SIMPLEX TYPE II 05/17/2009 MAD BRANCH CONTROLLER, DION L 799.02 HYPOXIA 05/17/2009 MADL BRANCH CONTROLLER, DION L 054.10 HERPES SIMPLEX TYPE II 05/17/2009 MAD BRANCH CONTROLLER, DION L 799.02 HYPOXIA 05/17/2009 MADL BRANCH CONTROLLER, DION L 054.10 HERPES SIMPLEX TYPE II 05/17/2009 MAD BRANCH CONTROLLER, DION L 799.02 HYPOXIA 05/17/2009 MAD BRANCH CONTROLLER, DION L 054.10 HERPES SIMPLEX TYPE II 05/17/2009 MAD BRANCH CONTROLLER, DION L 799.02 HYPOXIA 05/17/2009 MAD BRANCH CONTROLLER, DION L 054.10 HERPES SIMPLEX TYPE II 05/17/2009 MAD BRANCH CONTROLLER, DION L 799.02 HYPOXIA 05/17/2009 MAD BRANCH CONTROLLER, DION L 054.10 HERPES SIMPLEX TYPE II 05/17/2009 [facility] BRANCH CONTROLLER, DION L 799.02 HYPOXIA 05/17/2009 [facility] BRANCH CONTROLLER, DION L 054.10 HERPES SIMPLEX TYPE II 05/17/2009 [facility] BRANCH CONTROLLER, DION L 799.02 HYPOXIA 05/17/2009 MAD BRANCH CONTROLLER, DION L 054.10 HERPES SIMPLEX TYPE II 05/17/2009 MAD BRANCH CONTROLLER, DION L 799.02 HYPOXIA 05/17/2009 MAD BRANCH CONTROLLER, DION L 054.10 HERPES SIMPLEX TYPE II 05/17/2009 MAD BRANCH CONTROLLER, DION L 799.02 HYPOXIA 05/17/2009 GRANT LOCKETT DOA K 054.10 HERPES SIMPLEX TYPE II 05/17/2009 LOCKETT GRANT CARRANZAA K 799.02 HYPOXIA 05/17/2009 BARRY CASTELLANO APRN R 054.10 HERPES SIMPLEX TYPE II 05/17/2009 BARRY CASTELLANO APRN R 799.02 HYPOXIA 05/17/2009 LOCKETT GRANT CARRANZAA K 054.10 HERPES SIMPLEX TYPE II 05/17/2009 LOCKETT DO SHANNA K 799.02 HYPOXIA 07/02/2009 649.0 TOBACCO USE DISORDER COMPLICATING , CHILDBIRTH, OR THE PUERPERIUM 07/02/2009 DON POOL MD 649.0 TOBACCO USE DISORDER COMPLICATING , CHILDBIRTH, OR THE PUERPERIUM 07/02/2009 АННА DE LUNANANNEL 649.0 TOBACCO USE DISORDER COMPLICATING , CHILDBIRTH, OR THE PUERPERIUM 07/02/2009 SHANNA LOCKETT DO 649.0 TOBACCO USE DISORDER COMPLICATING , CHILDBIRTH, OR THE PUERPERIUM 07/02/2009 LAURA BENNETT MD 649.0 TOBACCO USE DISORDER COMPLICATING , CHILDBIRTH, OR THE PUERPERIUM 07/02/2009 SHANNA LOCKETT DO 649.0 TOBACCO USE DISORDER COMPLICATING , CHILDBIRTH, OR THE PUERPERIUM 07/02/2009 649.0 TOBACCO USE DISORDER COMPLICATING , CHILDBIRTH, OR THE PUERPERIUM 07/02/2009 649.0 TOBACCO USE DISORDER COMPLICATING , CHILDBIRTH, OR THE PUERPERIUM 07/02/2009 BINDU PALM MD 649.0 TOBACCO USE DISORDER COMPLICATING , CHILDBIRTH, OR THE PUERPERIUM 07/02/2009 649.0 TOBACCO USE DISORDER COMPLICATING , CHILDBIRTH, OR THE PUERPERIUM 07/02/2009 649.0 TOBACCO USE DISORDER COMPLICATING , CHILDBIRTH, OR THE PUERPERIUM 07/02/2009 649.0 TOBACCO USE DISORDER COMPLICATING , CHILDBIRTH, OR THE PUERPERIUM 07/02/2009 649.0 TOBACCO USE DISORDER COMPLICATING , CHILDBIRTH, OR THE PUERPERIUM 07/02/2009 649.0 TOBACCO USE DISORDER COMPLICATING , CHILDBIRTH, OR THE PUERPERIUM 07/02/2009 649.0 TOBACCO USE DISORDER COMPLICATING , CHILDBIRTH, OR THE PUERPERIUM 07/02/2009 649.0 TOBACCO USE DISORDER COMPLICATING , CHILDBIRTH, OR THE PUERPERIUM 07/02/2009 BINDU PALM MD 649.0 TOBACCO USE DISORDER COMPLICATING , CHILDBIRTH, OR THE PUERPERIUM 07/02/2009 BINDU PALM MD 649.0 TOBACCO USE DISORDER COMPLICATING , CHILDBIRTH, OR THE PUERPERIUM 07/02/2009 SHANNA LOCKETT DO 649.0 TOBACCO USE DISORDER COMPLICATING , CHILDBIRTH, OR THE PUERPERIUM 07/02/2009 BINDU PALM MD 649.0 TOBACCO USE DISORDER COMPLICATING , CHILDBIRTH, OR THE PUERPERIUM 07/02/2009 CARLINE MARIO APRN S 649.0 TOBACCO USE DISORDER COMPLICATING , CHILDBIRTH, OR THE PUERPERIUM 07/02/2009 CARLINE MARIO APRN S 649.0 TOBACCO USE DISORDER COMPLICATING , CHILDBIRTH, OR THE PUERPERIUM 07/02/2009 LAURA BENNETT MD 649.0 TOBACCO USE DISORDER COMPLICATING , CHILDBIRTH, OR THE PUERPERIUM 07/02/2009 ELIZABETH ROBIN MD N 649.0 TOBACCO USE DISORDER COMPLICATING , CHILDBIRTH, OR THE PUERPERIUM 07/02/2009 LAURA BENNETT MD 649.0 TOBACCO USE DISORDER COMPLICATING , CHILDBIRTH, OR THE PUERPERIUM 07/02/2009 SHANNA LOCKETT DO 649.0 TOBACCO USE DISORDER COMPLICATING , CHILDBIRTH, OR THE PUERPERIUM 07/02/2009 MARTÍNEZ MARY APRN N 649.0 TOBACCO USE DISORDER COMPLICATING , CHILDBIRTH, OR THE PUERPERIUM 07/02/2009 BINDU PALM MD 649.0 TOBACCO USE DISORDER COMPLICATING , CHILDBIRTH, OR THE PUERPERIUM 07/02/2009 MARTÍNEZ MARY APRN N 649.0 TOBACCO USE DISORDER COMPLICATING , CHILDBIRTH, OR THE PUERPERIUM 07/02/2009 ANNEL JJ APRN 649.0 TOBACCO USE DISORDER COMPLICATING , CHILDBIRTH, OR THE PUERPERIUM 07/02/2009 LAURA BENNETT MD 649.0 TOBACCO USE DISORDER COMPLICATING , CHILDBIRTH, OR THE PUERPERIUM 07/02/2009 DION SOTO APRN 649.0 TOBACCO USE DISORDER COMPLICATING , CHILDBIRTH, OR THE PUERPERIUM 07/02/2009 LAURA BENNETT MD 649.0 TOBACCO USE DISORDER COMPLICATING , CHILDBIRTH, OR THE PUERPERIUM 07/02/2009 DION SOTO APRN 649.0 TOBACCO USE DISORDER COMPLICATING , CHILDBIRTH, OR THE PUERPERIUM 07/02/2009 SHANNA LOCKETT DO 649.0 TOBACCO USE DISORDER COMPLICATING , CHILDBIRTH, OR THE PUERPERIUM 07/02/2009 SHANNA LOCKETT DO K 649.0 TOBACCO USE DISORDER COMPLICATING , CHILDBIRTH, OR THE PUERPERIUM 07/02/2009 MADL BRANCH CONTROLLER, DION L 649.0 TOBACCO USE DISORDER COMPLICATING , CHILDBIRTH, OR THE PUERPERIUM 07/02/2009 MADL BRANCH CONTROLLER, DION L 649.0 TOBACCO USE DISORDER COMPLICATING , CHILDBIRTH, OR THE PUERPERIUM 07/02/2009 MADL BRANCH CONTROLLER, DION L 649.0 TOBACCO USE DISORDER COMPLICATING , CHILDBIRTH, OR THE PUERPERIUM 07/02/2009 SHANNA LOCKETT DO K 649.0 TOBACCO USE DISORDER COMPLICATING , CHILDBIRTH, OR THE PUERPERIUM 07/02/2009 MADL BRANCH CONTROLLER, DION L 649.0 TOBACCO USE DISORDER COMPLICATING , CHILDBIRTH, OR THE PUERPERIUM 07/02/2009 MADL BRANCH CONTROLLER, DION L 649.0 TOBACCO USE DISORDER COMPLICATING , CHILDBIRTH, OR THE PUERPERIUM 07/02/2009 MADL BRANCH CONTROLLER, DION L 649.0 TOBACCO USE DISORDER COMPLICATING , CHILDBIRTH, OR THE PUERPERIUM 07/02/2009 MADL BRANCH CONTROLLER, DION L 649.0 TOBACCO USE DISORDER COMPLICATING , CHILDBIRTH, OR THE PUERPERIUM 07/02/2009 MADL BRANCH CONTROLLER, DION L 649.0 TOBACCO USE DISORDER COMPLICATING , CHILDBIRTH, OR THE PUERPERIUM 07/02/2009 MADL BRANCH CONTROLLER, DION L 649.0 TOBACCO USE DISORDER COMPLICATING , CHILDBIRTH, OR THE PUERPERIUM 07/02/2009 MADL BRANCH CONTROLLER, DION L 649.0 TOBACCO USE DISORDER COMPLICATING , CHILDBIRTH, OR THE PUERPERIUM 07/02/2009 MADL BRANCH CONTROLLER, DION L 649.0 TOBACCO USE DISORDER COMPLICATING , CHILDBIRTH, OR THE PUERPERIUM 07/02/2009 MADL BRANCH CONTROLLER, DION L 649.0 TOBACCO USE DISORDER COMPLICATING , CHILDBIRTH, OR THE PUERPERIUM 07/02/2009 SHANNA LOCKETT DO K 649.0 TOBACCO USE DISORDER COMPLICATING , CHILDBIRTH, OR THE PUERPERIUM 07/02/2009 GRAY DEL TOROBARRY Kamaljit 649.0 TOBACCO USE DISORDER COMPLICATING , CHILDBIRTH, OR THE PUERPERIUM 07/02/2009 SHANNA LOCKETT DO K 649.0 TOBACCO USE DISORDER COMPLICATING , CHILDBIRTH, OR THE PUERPERIUM 07/09/2009 305.1 NICOTINE DEPENDENCE 07/09/2009 DON POOL MD 305.1 NICOTINE DEPENDENCE 07/09/2009 ANNEL JJ APRN YVROSE 305.1 NICOTINE DEPENDENCE 07/09/2009 SHANNA LOCKETT DO K 305.1 NICOTINE DEPENDENCE 07/09/2009 LAURA BENNETT MD 305.1 NICOTINE DEPENDENCE 07/09/2009 SHANNA LOCKETT DO K 305.1 NICOTINE DEPENDENCE 07/09/2009 305.1 NICOTINE DEPENDENCE 07/09/2009 305.1 NICOTINE DEPENDENCE 07/09/2009 BINDU PALM MD 305.1 NICOTINE DEPENDENCE 07/09/2009 305.1 NICOTINE DEPENDENCE 07/09/2009 305.1 NICOTINE DEPENDENCE 07/09/2009 305.1 NICOTINE DEPENDENCE 07/09/2009 305.1 NICOTINE DEPENDENCE 07/09/2009 305.1 NICOTINE DEPENDENCE 07/09/2009 305.1 NICOTINE DEPENDENCE 07/09/2009 305.1 NICOTINE DEPENDENCE 07/09/2009 BINDU PALM MD 305.1 NICOTINE DEPENDENCE 07/09/2009 BINDU PALM MD 305.1 NICOTINE DEPENDENCE 07/09/2009 SHANNA LOCKETT DO K 305.1 NICOTINE DEPENDENCE 07/09/2009 BINDU PALM MD 305.1 NICOTINE DEPENDENCE 07/09/2009 SHELBI DEL TORO CARLINE S 305.1 NICOTINE DEPENDENCE 07/09/2009 SHELBI DEL TORO CARLINE S 305.1 NICOTINE DEPENDENCE 07/09/2009 LAURA BENNETT MD 305.1 NICOTINE DEPENDENCE 07/09/2009 ELIZABETH ROBIN MD 305.1 NICOTINE DEPENDENCE 07/09/2009 LAURA BENNETT MD 305.1 NICOTINE DEPENDENCE 07/09/2009 SHANNA LOCKETT DO K 305.1 NICOTINE DEPENDENCE 07/09/2009 MARTÍNEZ MARY APRN N 305.1 NICOTINE DEPENDENCE 07/09/2009 BINDU PALM MD 305.1 NICOTINE DEPENDENCE 07/09/2009 MARIEE RAJWINDER BRANCH CONTROLLER, MARTÍNEZ N 305.1 NICOTINE DEPENDENCE 07/09/2009 ANNEL JJ APRN 305.1 NICOTINE DEPENDENCE 07/09/2009 LAURA BENNETT MD 305.1 NICOTINE DEPENDENCE 07/09/2009 MADL BRANCH CONTROLLER, DION L 305.1 NICOTINE DEPENDENCE 07/09/2009 LAURA BENNETT MD 305.1 NICOTINE DEPENDENCE 07/09/2009 MADL BRANCH CONTROLLER, DION L 305.1 NICOTINE DEPENDENCE 07/09/2009 LOCKETT DO, SHANNA K 305.1 NICOTINE DEPENDENCE 07/09/2009 LOCKETT DO, SHANNA K 305.1 NICOTINE DEPENDENCE 07/09/2009 MADL BRANCH CONTROLLER, DION L 305.1 NICOTINE DEPENDENCE 07/09/2009 MADL BRANCH CONTROLLER, DION L 305.1 NICOTINE DEPENDENCE 07/09/2009 MADL BRANCH CONTROLLER, DION L 305.1 NICOTINE DEPENDENCE 07/09/2009 LOCKETT DO, SHANNA K 305.1 NICOTINE DEPENDENCE 07/09/2009 MADL BRANCH CONTROLLER, DION L 305.1 NICOTINE DEPENDENCE 07/09/2009 MADL BRANCH CONTROLLER, DION L 305.1 NICOTINE DEPENDENCE 07/09/2009 MADL BRANCH CONTROLLER, DION L 305.1 NICOTINE DEPENDENCE 07/09/2009 MADL BRANCH CONTROLLER, DION L 305.1 NICOTINE DEPENDENCE 07/09/2009 MADL BRANCH CONTROLLER, DION L 305.1 NICOTINE DEPENDENCE 07/09/2009 MADL BRANCH CONTROLLER, DION L 305.1 NICOTINE DEPENDENCE 07/09/2009 MADL BRANCH CONTROLLER, DION L 305.1 NICOTINE DEPENDENCE 07/09/2009 MADL BRANCH CONTROLLER, DION L 305.1 NICOTINE DEPENDENCE 07/09/2009 MADL BRANCH CONTROLLER, DION L 305.1 NICOTINE DEPENDENCE 07/09/2009 LOCKETT DO, SHANNA K 305.1 NICOTINE DEPENDENCE 07/09/2009 BARRY CASTELLANO APRN 305.1 NICOTINE DEPENDENCE 07/09/2009 LOCKETT DO, SHANNA K 305.1 NICOTINE DEPENDENCE 07/16/2009 496 CHRONIC OBSTRUCTIVE PULMONARY DISEASE 07/16/2009 YRN MOREIRA, DON 496 CHRONIC OBSTRUCTIVE PULMONARY DISEASE 07/16/2009 ANNEL JJ APRN 496 CHRONIC OBSTRUCTIVE PULMONARY DISEASE 07/16/2009 LEVY CARRANZA SHANNA K 496 CHRONIC OBSTRUCTIVE PULMONARY DISEASE 07/16/2009 LAURA BENNETT MD 496 CHRONIC OBSTRUCTIVE PULMONARY DISEASE 07/16/2009 LEVY CARRANZASHANNA K 496 CHRONIC OBSTRUCTIVE PULMONARY DISEASE 07/16/2009 496 CHRONIC OBSTRUCTIVE PULMONARY DISEASE 07/16/2009 496 CHRONIC OBSTRUCTIVE PULMONARY DISEASE 07/16/2009 BNIDU PALM MD 496 CHRONIC OBSTRUCTIVE PULMONARY DISEASE 07/16/2009 496 CHRONIC OBSTRUCTIVE PULMONARY DISEASE 07/16/2009 496 CHRONIC OBSTRUCTIVE PULMONARY DISEASE 07/16/2009 496 CHRONIC OBSTRUCTIVE PULMONARY DISEASE 07/16/2009 496 CHRONIC OBSTRUCTIVE PULMONARY DISEASE 07/16/2009 496 CHRONIC OBSTRUCTIVE PULMONARY DISEASE 07/16/2009 496 CHRONIC OBSTRUCTIVE PULMONARY DISEASE 07/16/2009 496 CHRONIC OBSTRUCTIVE PULMONARY DISEASE 07/16/2009 BINDU PALM MD 496 CHRONIC OBSTRUCTIVE PULMONARY DISEASE 07/16/2009 BINDU PALM MD 496 CHRONIC OBSTRUCTIVE PULMONARY DISEASE 07/16/2009 LEVY CARRANZASHANNA K 496 CHRONIC OBSTRUCTIVE PULMONARY DISEASE 07/16/2009 BINDU PALM MD 496 CHRONIC OBSTRUCTIVE PULMONARY DISEASE 07/16/2009 SHELBI DEL TORO, CARLINE S 496 CHRONIC OBSTRUCTIVE PULMONARY DISEASE 07/16/2009 SHELBI DEL TORO, CARLINE S 496 CHRONIC OBSTRUCTIVE PULMONARY DISEASE 07/16/2009 LAURA BENNETT MD 496 CHRONIC OBSTRUCTIVE PULMONARY DISEASE 07/16/2009 ELIZABETH ROBIN MD 496 CHRONIC OBSTRUCTIVE PULMONARY DISEASE 07/16/2009 LAURA BENNETT MD 496 CHRONIC OBSTRUCTIVE PULMONARY DISEASE 07/16/2009 LOCKETT DO SHANNA K 496 CHRONIC OBSTRUCTIVE PULMONARY DISEASE 07/16/2009 JAYLENE PURDY APRN, MARTÍNEZ N 496 CHRONIC OBSTRUCTIVE PULMONARY DISEASE 07/16/2009 BINDU PALM MD 496 CHRONIC OBSTRUCTIVE PULMONARY DISEASE 07/16/2009 JAYLENE PURDY APRN, MARTÍNEZ N 496 CHRONIC OBSTRUCTIVE PULMONARY DISEASE 07/16/2009 ANNEL JJ APRN 496 CHRONIC OBSTRUCTIVE PULMONARY DISEASE 07/16/2009 LAURA BENNETT MD6 CHRONIC OBSTRUCTIVE PULMONARY DISEASE 07/16/2009 LIANA SOTO APRNNYA L 496 CHRONIC OBSTRUCTIVE PULMONARY DISEASE 07/16/2009 LAURA BENNETT MD CHRONIC OBSTRUCTIVE PULMONARY DISEASE 07/16/2009 MADL BRANCH CONTROLLER, DION L 496 CHRONIC OBSTRUCTIVE PULMONARY DISEASE 07/16/2009 LOCKETT DO, SHANNA K 496 CHRONIC OBSTRUCTIVE PULMONARY DISEASE 07/16/2009 LOCKETT DO, SHANNA K 496 CHRONIC OBSTRUCTIVE PULMONARY DISEASE 07/16/2009 MADL BRANCH CONTROLLER, DION L 496 CHRONIC OBSTRUCTIVE PULMONARY DISEASE 07/16/2009 MADL BRANCH CONTROLLER, DION L 496 CHRONIC OBSTRUCTIVE PULMONARY DISEASE 07/16/2009 MADL BRANCH CONTROLLER, DOIN L 496 CHRONIC OBSTRUCTIVE PULMONARY DISEASE 07/16/2009 LOCKETT DO, SHANNA K 496 CHRONIC OBSTRUCTIVE PULMONARY DISEASE 07/16/2009 MADL BRANCH CONTROLLER, DION L 496 CHRONIC OBSTRUCTIVE PULMONARY DISEASE 07/16/2009 MADL BRANCH CONTROLLER, DION L 496 CHRONIC OBSTRUCTIVE PULMONARY DISEASE 07/16/2009 MADL BRANCH CONTROLLER, DION L 496 CHRONIC OBSTRUCTIVE PULMONARY DISEASE 07/16/2009 MADL BRANCH CONTROLLER, DION L 496 CHRONIC OBSTRUCTIVE PULMONARY DISEASE 07/16/2009 MADL BRANCH CONTROLLER, DION L 496 CHRONIC OBSTRUCTIVE PULMONARY DISEASE 07/16/2009 MADL BRANCH CONTROLLER, DION L 496 CHRONIC OBSTRUCTIVE PULMONARY DISEASE 07/16/2009 MADL BRANCH CONTROLLER, DION L 496 CHRONIC OBSTRUCTIVE PULMONARY DISEASE 07/16/2009 MADL BRANCH CONTROLLER, DION L 496 CHRONIC OBSTRUCTIVE PULMONARY DISEASE 07/16/2009 MADL BRANCH CONTROLLER, DION L 496 CHRONIC OBSTRUCTIVE PULMONARY DISEASE 07/16/2009 LOCKETT DO, SHANNA K 496 CHRONIC OBSTRUCTIVE PULMONARY DISEASE 07/16/2009 GRAY DEL TORO, BARRY R 496 CHRONIC OBSTRUCTIVE PULMONARY DISEASE 07/16/2009 LOCKETT DO, SHANNA K 496 CHRONIC OBSTRUCTIVE PULMONARY DISEASE 08/08/2009 Ot 496 02/20/2010 Ot 786.05 02/24/2010 682.9 Cellulitis 02/24/2010 YRN MOREIRA, DON 682.9 Cellulitis 02/24/2010 ANNEL JJ APRN 682.9 Cellulitis 02/24/2010 LOCKETT SHANNA CARRANZA K 682.9 Cellulitis 02/24/2010 SABRINA MOREIRA, LAURA 682.9 Cellulitis 02/24/2010 LOCKETT SHANNA CARRANZA 682.9 Cellulitis 02/24/2010 682.9 Cellulitis 02/24/2010 682.9 Cellulitis 02/24/2010 NÉSTOR MOREIRA, BINDU M 682.9 Cellulitis 02/24/2010 682.9 Cellulitis 02/24/2010 682.9 Cellulitis 02/24/2010 682.9 Cellulitis 02/24/2010 682.9 Cellulitis 02/24/2010 682.9 Cellulitis 02/24/2010 682.9 Cellulitis 02/24/2010 682.9 Cellulitis 02/24/2010 NÉSTOR MOREIRA, BINDU Hidalgo 682.9 Cellulitis 02/24/2010 NÉSTOR MOREIRA, BINDU Hidalgo 682.9 Cellulitis 02/24/2010 LOCKETT DO, SHANNA K 682.9 Cellulitis 02/24/2010 NÉSTOR MOREIRA, BINDU M 682.9 Cellulitis 02/24/2010 SHELBI DEL TORO, CARLINE S 682.9 Cellulitis 02/24/2010 SHELBI DEL TORO, CARLINE S 682.9 Cellulitis 02/24/2010 SABRINA MOREIRA, LAURA 682.9 Cellulitis 02/24/2010 LOBITO MOREIRA, ELIZABETH N 682.9 Cellulitis 02/24/2010 SABRINA MOREIRA, LAURA 682.9 Cellulitis 02/24/2010 LOCKETT DO, SHANNA K 682.9 Cellulitis 02/24/2010 JAYLENE PURDY APRN, MARTÍNEZ N 682.9 Cellulitis 02/24/2010 NÉSTOR MOREIRA, BINDU Hidalgo 682.9 Cellulitis 02/24/2010 JAYLENE PURDY APRN, MARTÍNEZ N 682.9 Cellulitis 02/24/2010 ANNEL JJ APRN 682.9 Cellulitis 02/24/2010 LAURA BENNETT MD 682.9 Cellulitis 02/24/2010 BRITTANY DEL TORO, DION L 682.9 Cellulitis 02/24/2010 LAURA BENNETT MD 682.9 Cellulitis 02/24/2010 BRITTANY DEL TORO, DION L 682.9 Cellulitis 02/24/2010 LOCKETT DO, SHANNA K 682.9 Cellulitis 02/24/2010 LOCKETT DO, SHANNA K 682.9 Cellulitis 02/24/2010 BRITTANY DEL TORO, DION L 682.9 Cellulitis 02/24/2010 MADL BRANCH CONTROLLER, DION L 682.9 Cellulitis 02/24/2010 MADL BRANCH CONTROLLER, DION L 682.9 Cellulitis 02/24/2010 LOCKETT DO, SHANNA K 682.9 Cellulitis 02/24/2010 MADL BRANCH CONTROLLER, DION L 682.9 Cellulitis 02/24/2010 MADL BRANCH CONTROLLER, DION L 682.9 Cellulitis 02/24/2010 MADL BRANCH CONTROLLER, DION L 682.9 Cellulitis 02/24/2010 MADL BRANCH CONTROLLER, DION L 682.9 Cellulitis 02/24/2010 MADL BRANCH CONTROLLER, DION L 682.9 Cellulitis 02/24/2010 MADL BRANCH CONTROLLER, DION L 682.9 Cellulitis 02/24/2010 MADL BRANCH CONTROLLER, DION L 682.9 Cellulitis 02/24/2010 MADL BRANCH CONTROLLER, DION L 682.9 Cellulitis 02/24/2010 MADL BRANCH CONTROLLER, DION L 682.9 Cellulitis 02/24/2010 LOCKETT DO, SHANNA K 682.9 Cellulitis 02/24/2010 CASTELLANO BRANCH CONTROLLER, BARRY R 682.9 Cellulitis 02/24/2010 LOCKETT DO, HSANNA K 682.9 Cellulitis 03/11/2010 V72.31 Pelvic Exam ( internal) 03/11/2010 V74.5 Visit For: Screening Exam Bact/spirochetal Venereal Disease 03/11/2010 DON POOL MD V72.31 Pelvic Exam (internal) 03/11/2010 DON POOL MD V74.5 Visit For: Screening Exam Bact/spirochetal Venereal Disease 03/11/2010 ANNEL JJ APRN V72.31 Pelvic Exam (internal) 03/11/2010 ANNEL JJ APRN V74.5 Visit For: Screening Exam Bact/spirochetal Venereal Disease 03/11/2010 SHANNA LOCKETT DO K V72.31 Pelvic Exam (internal) 03/11/2010 SHANNA LOCKETT DO K V74.5 Visit For: Screening Exam Bact/spirochetal Venereal Disease 03/11/2010 LAURA BENNETT MD V72.31 Pelvic Exam (internal) 03/11/2010 LAURA BENNETT MD V74.5 Visit For: Screening Exam Bact/spirochetal Venereal Disease 03/11/2010 SHANNA LOCKETT DO V72.31 Pelvic Exam (internal) 03/11/2010 SHANNA LOCKETT DO V74.5 Visit For: Screening Exam Bact/spirochetal Venereal Disease 03/11/2010 V72.31 Pelvic Exam ( internal) 03/11/2010 V74.5 Visit For: Screening Exam Bact/spirochetal Venereal Disease 03/11/2010 V72.31 Pelvic Exam ( internal) 03/11/2010 V74.5 Visit For: Screening Exam Bact/spirochetal Venereal Disease 03/11/2010 BINDU PALM MD V72.31 Pelvic Exam (internal) 03/11/2010 BINDU PALM MD V74.5 Visit For: Screening Exam Bact/spirochetal Venereal Disease 03/11/2010 V72.31 Pelvic Exam ( internal) 03/11/2010 V74.5 Visit For: Screening Exam Bact/spirochetal Venereal Disease 03/11/2010 V72.31 Pelvic Exam ( internal) 03/11/2010 V74.5 Visit For: Screening Exam Bact/spirochetal Venereal Disease 03/11/2010 V72.31 Pelvic Exam ( internal) 03/11/2010 V74.5 Visit For: Screening Exam Bact/spirochetal Venereal Disease 03/11/2010 V72.31 Pelvic Exam ( internal) 03/11/2010 V74.5 Visit For: Screening Exam Bact/spirochetal Venereal Disease 03/11/2010 V72.31 Pelvic Exam ( internal) 03/11/2010 V74.5 Visit For: Screening Exam Bact/spirochetal Venereal Disease 03/11/2010 V72.31 Pelvic Exam ( internal) 03/11/2010 V74.5 Visit For: Screening Exam Bact/spirochetal Venereal Disease 03/11/2010 V72.31 Pelvic Exam ( internal) 03/11/2010 V74.5 Visit For: Screening Exam Bact/spirochetal Venereal Disease 03/11/2010 BINDU PALM MD V72.31 Pelvic Exam (internal) 03/11/2010 BINDU PALM MD V74.5 Visit For: Screening Exam Bact/spirochetal Venereal Disease 03/11/2010 BINDU PALM MD V72.31 Pelvic Exam (internal) 03/11/2010 BINDU PALM MD V74.5 Visit For: Screening Exam Bact/spirochetal Venereal Disease 03/11/2010 LOCKETT DO, SHANNA K V72.31 Pelvic Exam (internal) 03/11/2010 LOCKETT DOGRANTA K V74.5 Visit For: Screening Exam Bact/spirochetal Venereal Disease 03/11/2010 BINDU PALM MD V72.31 Pelvic Exam (internal) 03/11/2010 BINDU PALM MD V74.5 Visit For: Screening Exam Bact/spirochetal Venereal Disease 03/11/2010 SHELBI BRANCH CONTROLLER, CARLINE S V72.31 Pelvic Exam (internal) 03/11/2010 SHELBI BRANCH CONTROLLER, CARLINE S V74.5 Visit For: Screening Exam Bact/spirochetal Venereal Disease 03/11/2010 SHELBI BRANCH CONTROLLER, CARLINE S V72.31 Pelvic Exam (internal) 03/11/2010 SHELBI BRANCH CONTROLLER, CARLINE S V74.5 Visit For: Screening Exam Bact/spirochetal Venereal Disease 03/11/2010 LAURA BENNETT MD V72.31 Pelvic Exam (internal) 03/11/2010 LAURA BENNETT MD V74.5 Visit For: Screening Exam Bact/spirochetal Venereal Disease 03/11/2010 ELIZABETH ROBIN MD V72.31 Pelvic Exam (internal) 03/11/2010 ELIZABETH ROBIN MD V74.5 Visit For: Screening Exam Bact/spirochetal Venereal Disease 03/11/2010 LAURA BENNETT MD V72.31 Pelvic Exam (internal) 03/11/2010 LAURA BENNETT MD V74.5 Visit For: Screening Exam Bact/spirochetal Venereal Disease 03/11/2010 LOCKETT DO, SHANNA K V72.31 Pelvic Exam (internal) 03/11/2010 LOCKETT DO SHANNA K V74.5 Visit For: Screening Exam Bact/spirochetal Venereal Disease 03/11/2010 JAYLENE PURDY BRANCH CONTROLLER, MARTÍNEZ N V72.31 Pelvic Exam (internal) 03/11/2010 MARIEE GRISELDAERO BRANCH CONTROLLER, MARTÍNEZ N V74.5 Visit For: Screening Exam Bact/spirochetal Venereal Disease 03/11/2010 BINDU APLM MD V72.31 Pelvic Exam (internal) 03/11/2010 BINDU PALM MD V74.5 Visit For: Screening Exam Bact/spirochetal Venereal Disease 03/11/2010 MARIEE RAJWINDER BRANCH CONTROLLER, MARTÍNEZ N V72.31 Pelvic Exam (internal) 03/11/2010 JAYLENE VILLALOBOSERO BRANCH CONTROLLER, MARTÍNEZ N V74.5 Visit For: Screening Exam Bact/spirochetal Venereal Disease 03/11/2010 ANNEL JJ APRN V72.31 Pelvic Exam (internal) 03/11/2010 ANNEL JJ APRN V74.5 Visit For: Screening Exam Bact/spirochetal Venereal Disease 03/11/2010 LAURA BENNETT MD V72.31 Pelvic Exam (internal) 03/11/2010 LAURA BENNETT MD V74.5 Visit For: Screening Exam Bact/spirochetal Venereal Disease 03/11/2010 LAURE SOTO APRNA L V72.31 Pelvic Exam (internal) 03/11/2010 LAURE SOTO APRNA L V74.5 Visit For: Screening Exam Bact/spirochetal Venereal Disease 03/11/2010 LAURA BENNETT MD V72.31 Pelvic Exam (internal) 03/11/2010 LAURA BENNETT MD V74.5 Visit For: Screening Exam Bact/spirochetal Venereal Disease 03/11/2010 BRITTANY DEL TORO DION L V72.31 Pelvic Exam (internal) 03/11/2010 LIANA SOTO APRNNYA L V74.5 Visit For: Screening Exam Bact/spirochetal Venereal Disease 03/11/2010 LEVY CARRANZA SHANNA K V72.31 Pelvic Exam (internal) 03/11/2010 LEVY CARRANZA SHANNA K V74.5 Visit For: Screening Exam Bact/spirochetal Venereal Disease 03/11/2010 LEVY CARRANZA SHANNA K V72.31 Pelvic Exam (internal) 03/11/2010 LOCKETT DO SHANNA K V74.5 Visit For: Screening Exam Bact/spirochetal Venereal Disease 03/11/2010 MADL BRANCH CONTROLLER, DION L V72.31 Pelvic Exam (internal) 03/11/2010 MADL BRANCH CONTROLLER, DION L V74.5 Visit For: Screening Exam Bact/spirochetal Venereal Disease 03/11/2010 MADL BRANCH CONTROLLER, DION L V72.31 Pelvic Exam (internal) 03/11/2010 MADL BRANCH CONTROLLER, DION L V74.5 Visit For: Screening Exam Bact/spirochetal Venereal Disease 03/11/2010 MADL BRANCH CONTROLLER, DION L V72.31 Pelvic Exam (internal) 03/11/2010 MADL BRANCH CONTROLLER, DION L V74.5 Visit For: Screening Exam Bact/spirochetal Venereal Disease 03/11/2010 LOCKETT DO SHANNA K V72.31 Pelvic Exam (internal) 03/11/2010 LEVY CARRANZA SHANNA K V74.5 Visit For: Screening Exam Bact/spirochetal Venereal Disease 03/11/2010 MADL BRANCH CONTROLLER, DION L V72.31 Pelvic Exam (internal) 03/11/2010 MADL BRANCH CONTROLLER, DION L V74.5 Visit For: Screening Exam Bact/spirochetal Venereal Disease 03/11/2010 MADL BRANCH CONTROLLER, DION L V72.31 Pelvic Exam (internal) 03/11/2010 MADL BRANCH CONTROLLER, DION L V74.5 Visit For: Screening Exam Bact/spirochetal Venereal Disease 03/11/2010 MADL BRANCH CONTROLLER, DION L V72.31 Pelvic Exam (internal) 03/11/2010 MADL BRANCH CONTROLLER, DION L V74.5 Visit For: Screening Exam Bact/spirochetal Venereal Disease 03/11/2010 MADL BRANCH CONTROLLER, DION L V72.31 Pelvic Exam (internal) 03/11/2010 MADL BRANCH CONTROLLER, DION L V74.5 Visit For: Screening Exam Bact/spirochetal Venereal Disease 03/11/2010 MADL BRANCH CONTROLLER, DION L V72.31 Pelvic Exam (internal) 03/11/2010 MADL BRANCH CONTROLLER, DION L V74.5 Visit For: Screening Exam Bact/spirochetal Venereal Disease 03/11/2010 MADL BRANCH CONTROLLER, DION L V72.31 Pelvic Exam (internal) 03/11/2010 MADL BRANCH CONTROLLER, DION L V74.5 Visit For: Screening Exam Bact/spirochetal Venereal Disease 03/11/2010 MADL BRANCH CONTROLLER, DION L V72.31 Pelvic Exam (internal) 03/11/2010 MADL BRANCH CONTROLLER, DION L V74.5 Visit For: Screening Exam Bact/spirochetal Venereal Disease 03/11/2010 MADL BRANCH CONTROLLER, DION L V72.31 Pelvic Exam (internal) 03/11/2010 MADL BRANCH CONTROLLER, DION L V74.5 Visit For: Screening Exam Bact/spirochetal Venereal Disease 03/11/2010 MADL BRANCH CONTROLLER, DION L V72.31 Pelvic Exam (internal) 03/11/2010 MADL BRANCH CONTROLLER, DION L V74.5 Visit For: Screening Exam Bact/spirochetal Venereal Disease 03/11/2010 LEVY DO SHANNA K V72.31 Pelvic Exam (internal) 03/11/2010 LEVY CARRANZA SHANNA K V74.5 Visit For: Screening Exam Bact/spirochetal Venereal Disease 03/11/2010 JACKELINE CASTELLANO APRNRICIA R V72.31 Pelvic Exam (internal) 03/11/2010 JACKELINE CASTELLANO APRNRICIA R V74.5 Visit For: Screening Exam Bact/spirochetal Venereal Disease 03/11/2010 LEVY CARRANZA SHANNA K V72.31 Pelvic Exam (internal) 03/11/2010 LOCKETT DO SHANNA K V74.5 Visit For: Screening Exam Bact/spirochetal Venereal Disease 03/20/2010 Ot 041.4 03/20/2010 Ot 305.1 03/20/2010 Ot 305.20 03/20/2010 Ot 311 03/20/2010 Ot 491.21 03/20/2010 Ot 590.10 03/20/2010 Ot 799.02 03/28/2010 278.00 OBESITY 03/28/2010 YRN MOREIRA, DON 278.00 OBESITY 03/28/2010 АННА DEL TOROANNEL 278.00 OBESITY 03/28/2010 LOCKETT DO, SHANNA K 278.00 OBESITY 03/28/2010 LAURA BENNETT MD 278.00 OBESITY 03/28/2010 LOCKETT DO, SHANNA K 278.00 OBESITY 03/28/2010 278.00 OBESITY 03/28/2010 278.00 OBESITY 03/28/2010 NÉSTOR MOREIRA, BINDU Hidalgo 278.00 OBESITY 03/28/2010 278.00 OBESITY 03/28/2010 278.00 OBESITY 03/28/2010 278.00 OBESITY 03/28/2010 278.00 OBESITY 03/28/2010 278.00 OBESITY 03/28/2010 278.00 OBESITY 03/28/2010 278.00 OBESITY 03/28/2010 NÉSTOR MOREIRA, BINDU Hidalgo 278.00 OBESITY 03/28/2010 NÉSTOR MOREIRA, BINDU Hidalgo 278.00 OBESITY 03/28/2010 LOCKETT DO, SHANNA K 278.00 OBESITY 03/28/2010 NÉSTOR MOREIRA, BINDU Hidalgo 278.00 OBESITY 03/28/2010 SHELBI DEL TORO CARLINE S 278.00 OBESITY 03/28/2010 SHELBI DEL TORO CARLINE S 278.00 OBESITY 03/28/2010 SABRINA MOREIRA, LAURA 278.00 OBESITY 03/28/2010 ELIZABETH ROBIN MD 278.00 OBESITY 03/28/2010 LAURA BENNETT MD 278.00 OBESITY 03/28/2010 LOCKETT DO, SHANNA K 278.00 OBESITY 03/28/2010 JAYLENE PURDY APRN, MARTÍNEZ N 278.00 OBESITY 03/28/2010 BINDU PALM MD 278.00 OBESITY 03/28/2010 JAYLENE PURDY APRN, MARTÍNEZ N 278.00 OBESITY 03/28/2010 АННА DEL TOR[place] ANNEL FRANCES 278.00 OBESITY 03/28/2010 LAURA BENNETT MD 278.00 OBESITY 03/28/2010 DION SOTO APRN L 278.00 OBESITY 03/28/2010 LAURA BENNETT MD 278.00 OBESITY 03/28/2010 DION SOTO APRN L 278.00 OBESITY 03/28/2010 LOCKETT DO, SHANNA K 278.00 OBESITY 03/28/2010 LOCKETT DO, SHANNA K 278.00 OBESITY 03/28/2010 MADL BRANCH CONTROLLER, DION L 278.00 OBESITY 03/28/2010 MADL BRANCH CONTROLLER, DION L 278.00 OBESITY 03/28/2010 MADL BRANCH CONTROLLER, DION L 278.00 OBESITY 03/28/2010 LOCKETT DO SHANNA K 278.00 OBESITY 03/28/2010 MADL BRANCH CONTROLLER, DION L 278.00 OBESITY 03/28/2010 MADL BRANCH CONTROLLER, DION L 278.00 OBESITY 03/28/2010 MADL BRANCH CONTROLLER, DION L 278.00 OBESITY 03/28/2010 MADL BRANCH CONTROLLER, DION L 278.00 OBESITY 03/28/2010 MADL BRANCH CONTROLLER, DION L 278.00 OBESITY 03/28/2010 MADL BRANCH CONTROLLER, DION L 278.00 OBESITY 03/28/2010 MADL BRANCH CONTROLLER, DION L 278.00 OBESITY 03/28/2010 MADL BRANCH CONTROLLER, DION L 278.00 OBESITY 03/28/2010 MADL BRANCH CONTROLLER, DION L 278.00 OBESITY 03/28/2010 LEVY DO SHANNA K 278.00 OBESITY 03/28/2010 CASTELLANO BRANCH CONTROLLER, BARRY R 278.00 OBESITY 03/28/2010 GRANT LOCKETT DOA K 278.00 OBESITY 04/09/2010 Ot 780.57 04/09/2010 Ot 780.79 07/04/2010 296.32 MO DEPRESSIVE RECURRENT MODERATE 07/04/2010 300.02 AN GEN ANXIETY 07/04/2010 301.9 PD PERS DIS NOS 07/04/2010 303.90 SA ALCOHOLISM UNSPECI 07/04/2010 305.20 SA CANNABIS ABUSE 07/04/2010 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 07/04/2010 DON POOL MD 296.32 MO DEPRESSIVE RECURRENT MODERATE 07/04/2010 DON POOL MD 300.02 AN GEN ANXIETY 07/04/2010 DON POOL MD 301.9 PD PERS DIS NOS 07/04/2010 DON POOL MD 303.90 SA ALCOHOLISM UNSPECI 07/04/2010 DON POOL MD 305.20 SA CANNABIS ABUSE 07/04/2010 DON POOL MD 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 07/04/2010 JJ KATEY ANNEL YVROSE 296.32 MO DEPRESSIVE RECURRENT MODERATE 07/04/2010 ANNEL JJ APRN 300.02 AN GEN ANXIETY 07/04/2010 ANNEL JJ APRN 301.9 PD PERS DIS NOS 07/04/2010 ANNEL JJ APRN 303.90 SA ALCOHOLISM UNSPECI 07/04/2010 ANNEL JJ APRN 305.20 SA CANNABIS ABUSE 07/04/2010 ANNEL JJ APRN 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 07/04/2010 LOCKETT DO SHANNA K 296.32 MO DEPRESSIVE RECURRENT MODERATE 07/04/2010 LOCKETT DO SHANNA K 300.02 AN GEN ANXIETY 07/04/2010 LOCKETT DO, SHANNA K 301.9 PD PERS DIS NOS 07/04/2010 LOCKETT DO SHANNA K 303.90 SA ALCOHOLISM UNSPECI 07/04/2010 LOCKETT DO SHANNA K 305.20 SA CANNABIS ABUSE 07/04/2010 LOCKETT DO SHANNA K 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 07/04/2010 LAURA BENNETT MD 296.32 MO DEPRESSIVE RECURRENT MODERATE 07/04/2010 LAURA BENNETT MD 300.02 AN GEN ANXIETY 07/04/2010 LAURA BENNETT MD 301.9 PD PERS DIS NOS 07/04/2010 LAURA BENNETT MD 303.90 SA ALCOHOLISM UNSPECI 07/04/2010 LAURA BENNETT MD 305.20 SA CANNABIS ABUSE 07/04/2010 LAURA BENNETT MD 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 07/04/2010 LOCKETT DO SHANNA K 296.32 MO DEPRESSIVE RECURRENT MODERATE 07/04/2010 LEVY CARRANZA SHANNA K 300.02 AN GEN ANXIETY 07/04/2010 LEVY CARRANZA SHANNA K 301.9 PD PERS DIS NOS 07/04/2010 LOCKETT DO SHANNA K 303.90 SA ALCOHOLISM UNSPECI 07/04/2010 LOCKETT DO SHANNA K 305.20 SA CANNABIS ABUSE 07/04/2010 LOCKETT DO SHANNA K 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 07/04/2010 296.32 MO DEPRESSIVE RECURRENT MODERATE 07/04/2010 300.02 AN GEN ANXIETY 07/04/2010 301.9 PD PERS DIS NOS 07/04/2010 303.90 SA ALCOHOLISM UNSPECI 07/04/2010 305.20 SA CANNABIS ABUSE 07/04/2010 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 07/04/2010 296.32 MO DEPRESSIVE RECURRENT MODERATE 07/04/2010 300.02 AN GEN ANXIETY 07/04/2010 301.9 PD PERS DIS NOS 07/04/2010 303.90 SA ALCOHOLISM UNSPECI 07/04/2010 305.20 SA CANNABIS ABUSE 07/04/2010 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 07/04/2010 BINDU PALM MD 296.32 MO DEPRESSIVE RECURRENT MODERATE 07/04/2010 BINDU PALM MD 300.02 AN GEN ANXIETY 07/04/2010 BINDU PALM MD 301.9 PD PERS DIS NOS 07/04/2010 BINDU PALM MD 303.90 SA ALCOHOLISM UNSPECI 07/04/2010 BINDU PALM MD 305.20 SA CANNABIS ABUSE 07/04/2010 BINDU PALM MD 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 07/04/2010 296.32 MO DEPRESSIVE RECURRENT MODERATE 07/04/2010 300.02 AN GEN ANXIETY 07/04/2010 301.9 PD PERS DIS NOS 07/04/2010 303.90 SA ALCOHOLISM UNSPECI 07/04/2010 305.20 SA CANNABIS ABUSE 07/04/2010 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 07/04/2010 296.32 MO DEPRESSIVE RECURRENT MODERATE 07/04/2010 300.02 AN GEN ANXIETY 07/04/2010 301.9 PD PERS DIS NOS 07/04/2010 303.90 SA ALCOHOLISM UNSPECI 07/04/2010 305.20 SA CANNABIS ABUSE 07/04/2010 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 07/04/2010 296.32 MO DEPRESSIVE RECURRENT MODERATE 07/04/2010 300.02 AN GEN ANXIETY 07/04/2010 301.9 PD PERS DIS NOS 07/04/2010 303.90 SA ALCOHOLISM UNSPECI 07/04/2010 305.20 SA CANNABIS ABUSE 07/04/2010 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 07/04/2010 296.32 MO DEPRESSIVE RECURRENT MODERATE 07/04/2010 300.02 AN GEN ANXIETY 07/04/2010 301.9 PD PERS DIS NOS 07/04/2010 303.90 SA ALCOHOLISM UNSPECI 07/04/2010 305.20 SA CANNABIS ABUSE 07/04/2010 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 07/04/2010 296.32 MO DEPRESSIVE RECURRENT MODERATE 07/04/2010 300.02 AN GEN ANXIETY 07/04/2010 301.9 PD PERS DIS NOS 07/04/2010 303.90 SA ALCOHOLISM UNSPECI 07/04/2010 305.20 SA CANNABIS ABUSE 07/04/2010 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 07/04/2010 296.32 MO DEPRESSIVE RECURRENT MODERATE 07/04/2010 300.02 AN GEN ANXIETY 07/04/2010 301.9 PD PERS DIS NOS 07/04/2010 303.90 SA ALCOHOLISM UNSPECI 07/04/2010 305.20 SA CANNABIS ABUSE 07/04/2010 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 07/04/2010 296.32 MO DEPRESSIVE RECURRENT MODERATE 07/04/2010 300.02 AN GEN ANXIETY 07/04/2010 301.9 PD PERS DIS NOS 07/04/2010 303.90 SA ALCOHOLISM UNSPECI 07/04/2010 305.20 SA CANNABIS ABUSE 07/04/2010 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 07/04/2010 BINDU PALM MD 296.32 MO DEPRESSIVE RECURRENT MODERATE 07/04/2010 BINDU PALM MD 300.02 AN GEN ANXIETY 07/04/2010 BINDU PALM MD 301.9 PD PERS DIS NOS 07/04/2010 BINDU PALM MD 303.90 SA ALCOHOLISM UNSPECI 07/04/2010 BINDU PALM MD 305.20 SA CANNABIS ABUSE 07/04/2010 BINDU PALM MD 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 07/04/2010 BINDU PALM MD 296.32 MO DEPRESSIVE RECURRENT MODERATE 07/04/2010 BINDU PALM MD 300.02 AN GEN ANXIETY 07/04/2010 BINDU PALM MD 301.9 PD PERS DIS NOS 07/04/2010 BINDU PALM MD 303.90 SA ALCOHOLISM UNSPECI 07/04/2010 BINDU PALM MD 305.20 SA CANNABIS ABUSE 07/04/2010 BINDU PALM MD 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 07/04/2010 LOCKETT DO SHANNA K 296.32 MO DEPRESSIVE RECURRENT MODERATE 07/04/2010 LOCKETT DO SHANNA K 300.02 AN GEN ANXIETY 07/04/2010 LOCKETT DO SHANNA K 301.9 PD PERS DIS NOS 07/04/2010 LOCKETT DO, SHANNA K 303.90 SA ALCOHOLISM UNSPECI 07/04/2010 LOCKETT DO SHANNA K 305.20 SA CANNABIS ABUSE 07/04/2010 LOCKETT DO, SHANNA K 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 07/04/2010 NÉSTOR MOREIRA, BINDU Hidaglo 296.32 MO DEPRESSIVE RECURRENT MODERATE 07/04/2010 BINDU PALM MD 300.02 AN GEN ANXIETY 07/04/2010 BINDU PALM MD 301.9 PD PERS DIS NOS 07/04/2010 BINDU PALM MD 303.90 SA ALCOHOLISM UNSPECI 07/04/2010 BINDU PALM MD 305.20 SA CANNABIS ABUSE 07/04/2010 BINDU PALM MD 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 07/04/2010 SHELBI BRANCH CONTROLLER, CARLINE S 296.32 MO DEPRESSIVE RECURRENT MODERATE 07/04/2010 SHELBI BRANCH CONTROLLER, CARLINE S 300.02 AN GEN ANXIETY 07/04/2010 SHELBI BRANCH CONTROLLER, CARLINE S 301.9 PD PERS DIS NOS 07/04/2010 SHELBI BRANCH CONTROLLER, CARLINE S 303.90 SA ALCOHOLISM UNSPECI 07/04/2010 SHELBI BRANCH CONTROLLER, CARLINE S 305.20 SA CANNABIS ABUSE 07/04/2010 SHELBI BRANCH CONTROLLER, CARLINE S 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 07/04/2010 SHELBI BRANCH CONTROLLER, CARLINE S 296.32 MO DEPRESSIVE RECURRENT MODERATE 07/04/2010 SHELBI BRANCH CONTROLLER, CARLINE S 300.02 AN GEN ANXIETY 07/04/2010 SHELBI BRANCH CONTROLLER, CARLINE S 301.9 PD PERS DIS NOS 07/04/2010 SHELBI BRANCH CONTROLLER, CARLINE S 303.90 SA ALCOHOLISM UNSPECI 07/04/2010 SHELBI BRANCH CONTROLLER, CARLINE S 305.20 SA CANNABIS ABUSE 07/04/2010 SHELBI BRANCH CONTROLLER, CARLINE S 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 07/04/2010 LAURA BENNETT MD 296.32 MO DEPRESSIVE RECURRENT MODERATE 07/04/2010 LAURA BENNETT MD 300.02 AN GEN ANXIETY 07/04/2010 LAURA BENNETT MD 301.9 PD PERS DIS NOS 07/04/2010 LAURA BENNETT MD 303.90 SA ALCOHOLISM UNSPECI 07/04/2010 LAURA BENNETT MD 305.20 SA CANNABIS ABUSE 07/04/2010 LAURA BENNETT MD 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 07/04/2010 ELIZABETH ROBIN MD N 296.32 MO DEPRESSIVE RECURRENT MODERATE 07/04/2010 ELIZABETH ROBIN MD N 300.02 AN GEN ANXIETY 07/04/2010 ELIZABETH ROBIN MD N 301.9 PD PERS DIS NOS 07/04/2010 ELIZABETH ROBIN MD N 303.90 SA ALCOHOLISM UNSPECI 07/04/2010 ELIZABETH ROBIN MD N 305.20 SA CANNABIS ABUSE 07/04/2010 ELIZABETH ROBIN MD N 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 07/04/2010 LAURA BENNETT MD 296.32 MO DEPRESSIVE RECURRENT MODERATE 07/04/2010 LAURA BENNETT MD 300.02 AN GEN ANXIETY 07/04/2010 LAURA BENNETT MD 301.9 PD PERS DIS NOS 07/04/2010 LAURA BENNETT MD 303.90 SA ALCOHOLISM UNSPECI 07/04/2010 LAURA BENNETT MD 305.20 SA CANNABIS ABUSE 07/04/2010 LAURA BENNETT MD 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 07/04/2010 LOCKETT DO, SHANNA K 296.32 MO DEPRESSIVE RECURRENT MODERATE 07/04/2010 LOCKETT DO, SHANNA K 300.02 AN GEN ANXIETY 07/04/2010 LOCKETT DO, SHANNA K 301.9 PD PERS DIS NOS 07/04/2010 LOCKETT DO, SHANNA K 303.90 SA ALCOHOLISM UNSPECI 07/04/2010 LOCKETT DO, SHANNA K 305.20 SA CANNABIS ABUSE 07/04/2010 LOCKETT DO, SHANNA K 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 07/04/2010 SUJATHA MARY APRNCY N 296.32 MO DEPRESSIVE RECURRENT MODERATE 07/04/2010 MARTÍNEZ MARY APRN N 300.02 AN GEN ANXIETY 07/04/2010 SUJATHA MARY APRNCY N 301.9 PD PERS DIS NOS 07/04/2010 JAYLENE PURDY APRN MARTÍNEZ N 303.90 SA ALCOHOLISM UNSPECI 07/04/2010 JAYLENE PURDY APRN MARTÍNEZ N 305.20 SA CANNABIS ABUSE 07/04/2010 JAYLENE PURDY APRN MARTÍNEZ N 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 07/04/2010 BINDU PALM MD 296.32 MO DEPRESSIVE RECURRENT MODERATE 07/04/2010 BINDU PALM MD 300.02 AN GEN ANXIETY 07/04/2010 BINDU PALM MD 301.9 PD PERS DIS NOS 07/04/2010 BINDU PALM MD 303.90 SA ALCOHOLISM UNSPECI 07/04/2010 BINDU PALM MD 305.20 SA CANNABIS ABUSE 07/04/2010 BINDU PALM MD 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 07/04/2010 MARTÍNEZ MARY APRN N 296.32 MO DEPRESSIVE RECURRENT MODERATE 07/04/2010 SUJATHA MARY APRNCY N 300.02 AN GEN ANXIETY 07/04/2010 MARIEE GRISELDAERO BRANCH CONTROLLER, MARTÍNEZ N 301.9 PD PERS DIS NOS 07/04/2010 MARIEE SUJATHA PURDY APRNCY N 303.90 SA ALCOHOLISM UNSPECI 07/04/2010 MARTÍNEZ MARY APRN N 305.20 SA CANNABIS ABUSE 07/04/2010 SUJATHA MARY APRNCY N 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 07/04/2010 АННА KATEYANNEL 296.32 MO DEPRESSIVE RECURRENT MODERATE 07/04/2010 АННА DE LUNAAlexia ANNEL FRANCES 300.02 AN GEN ANXIETY 07/04/2010 АННА DE LUNANANNEL 301.9 PD PERS DIS NOS 07/04/2010 АННА DE LUNANANNEL 303.90 SA ALCOHOLISM UNSPECI 07/04/2010 АННА DE LUNANANNEL 305.20 SA CANNABIS ABUSE 07/04/2010 АННА DE LUNANANNEL 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 07/04/2010 LAURA BENNETT MD 296.32 MO DEPRESSIVE RECURRENT MODERATE 07/04/2010 LAURA BENNETT MD 300.02 AN GEN ANXIETY 07/04/2010 LAURA BENNETT MD 301.9 PD PERS DIS NOS 07/04/2010 LAURA BENNETT MD 303.90 SA ALCOHOLISM UNSPECI 07/04/2010 LAURA BENNETT MD 305.20 SA CANNABIS ABUSE 07/04/2010 LAURA BENNETT MD 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 07/04/2010 MADL BRANCH CONTROLLERRADHA HaleDION L 296.32 MO DEPRESSIVE RECURRENT MODERATE 07/04/2010 MADL BRANCH CONTROLLER, DION L 300.02 AN GEN ANXIETY 07/04/2010 MADL BRANCH CONTROLLER, DION L 301.9 PD PERS DIS NOS 07/04/2010 MADL BRANCH CONTROLLER, DION L 303.90 SA ALCOHOLISM UNSPECI 07/04/2010 BIRDIEL BRANCH CONTROLLERLIANA HaleNYA L 305.20 SA CANNABIS ABUSE 07/04/2010 BIRDIEL LAURE DEL TOROA L 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 07/04/2010 LAURA BENNETT MD 296.32 MO DEPRESSIVE RECURRENT MODERATE 07/04/2010 LAURA BENNETT MD 300.02 AN GEN ANXIETY 07/04/2010 LAURA BENNETT MD 301.9 PD PERS DIS NOS 07/04/2010 LAURA BENNETT MD 303.90 SA ALCOHOLISM UNSPECI 07/04/2010 LAURA BENNETT MD 305.20 SA CANNABIS ABUSE 07/04/2010 LAURA BENNETT MD 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 07/04/2010 LAURE SOTO APRNA L 296.32 MO DEPRESSIVE RECURRENT MODERATE 07/04/2010 LAURE SOTO APRNA L 300.02 AN GEN ANXIETY 07/04/2010 LIANA SOTO APRNNYA L 301.9 PD PERS DIS NOS 07/04/2010 BIRDIEL LIANA DEL TORONYA L 303.90 SA ALCOHOLISM UNSPECI 07/04/2010 BIRDIEL LIANA DEL TORONYA L 305.20 SA CANNABIS ABUSE 07/04/2010 BIRDIEL LIANA DEL TORONYA L 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 07/04/2010 LOCKETT DO, SHANNA K 296.32 MO DEPRESSIVE RECURRENT MODERATE 07/04/2010 LOCKETT DO, SHANNA K 300.02 AN GEN ANXIETY 07/04/2010 LOCKETT DO, SHANNA K 301.9 PD PERS DIS NOS 07/04/2010 LOCKETT DO, SHANNA K 303.90 SA ALCOHOLISM UNSPECI 07/04/2010 LOCKETT DO, SHANNA K 305.20 SA CANNABIS ABUSE 07/04/2010 LOCKETT DO, SHANNA K 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 07/04/2010 LOCKETT DO, SHANNA K 296.32 MO DEPRESSIVE RECURRENT MODERATE 07/04/2010 LOCKETT DO, SHANNA K 300.02 AN GEN ANXIETY 07/04/2010 LOCKETT DO, SHANNA K 301.9 PD PERS DIS NOS 07/04/2010 LOCKETT DO, SHANNA K 303.90 SA ALCOHOLISM UNSPECI 07/04/2010 LOCKETT DO, SHANNA K 305.20 SA CANNABIS ABUSE 07/04/2010 LOCKETT DO, SHANNA K 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 07/04/2010 MADL BRANCH CONTROLLERLIANA HaleNYA L 296.32 MO DEPRESSIVE RECURRENT MODERATE 07/04/2010 MADL BRANCH CONTROLLERLIANA HaleNYA L 300.02 AN GEN ANXIETY 07/04/2010 MADL BRANCH CONTROLLERLIANA HaleNYA L 301.9 PD PERS DIS NOS 07/04/2010 MADL BRANCH CONTROLLERLIANA HaleNYA L 303.90 SA ALCOHOLISM UNSPECI 07/04/2010 MADL BRANCH CONTROLLERLIANADION L 305.20 SA CANNABIS ABUSE 07/04/2010 MADL BRANCH CONTROLLER, DION L 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 07/04/2010 MADL BRANCH CONTROLLER, DION L 296.32 MO DEPRESSIVE RECURRENT MODERATE 07/04/2010 BIRDIEL KATEY, DION L 300.02 AN GEN ANXIETY 07/04/2010 MADL BRANCH CONTROLLER, DION L 301.9 PD PERS DIS NOS 07/04/2010 MADL BRANCH CONTROLLER, DION L 303.90 SA ALCOHOLISM UNSPECI 07/04/2010 MADL BRANCH CONTROLLER, DION L 305.20 SA CANNABIS ABUSE 07/04/2010 MADL BRANCH CONTROLLER, DION L 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 07/04/2010 MADL BRANCH CONTROLLER, DION L 296.32 MO DEPRESSIVE RECURRENT MODERATE 07/04/2010 BIRDIEL BRANCH CONTROLLER, DION L 300.02 AN GEN ANXIETY 07/04/2010 MADL BRANCH CONTROLLER, DION L 301.9 PD PERS DIS NOS 07/04/2010 MADL BRANCH CONTROLLER, DION L 303.90 SA ALCOHOLISM UNSPECI 07/04/2010 MADL BRANCH CONTROLLER, DION L 305.20 SA CANNABIS ABUSE 07/04/2010 MADL BRANCH CONTROLLER, DION L 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 07/04/2010 LOCKETT DO, SHANNA K 296.32 MO DEPRESSIVE RECURRENT MODERATE 07/04/2010 LOCKETT DO, SHANNA K 300.02 AN GEN ANXIETY 07/04/2010 LOCKETT DO, SHANNA K 301.9 PD PERS DIS NOS 07/04/2010 LOCKETT DO, SHANNA K 303.90 SA ALCOHOLISM UNSPECI 07/04/2010 LOCKETT DO, SHANNA K 305.20 SA CANNABIS ABUSE 07/04/2010 LOCKETT DO, SHANNA K 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 07/04/2010 MADL BRANCH CONTROLLER, DION L 296.32 MO DEPRESSIVE RECURRENT MODERATE 07/04/2010 MADL BRANCH CONTROLLER, DION L 300.02 AN GEN ANXIETY 07/04/2010 MADL BRANCH CONTROLLER, DION L 301.9 PD PERS DIS NOS 07/04/2010 MADL BRANCH CONTROLLER, DION L 303.90 SA ALCOHOLISM UNSPECI 07/04/2010 MADL BRANCH CONTROLLER, DION L 305.20 SA CANNABIS ABUSE 07/04/2010 MADL BRANCH CONTROLLER, DION L 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 07/04/2010 MADL BRANCH CONTROLLER, DION L 296.32 MO DEPRESSIVE RECURRENT MODERATE 07/04/2010 MADL BRANCH CONTROLLER, DION L 300.02 AN GEN ANXIETY 07/04/2010 MADL BRANCH CONTROLLER, DION L 301.9 PD PERS DIS NOS 07/04/2010 MADL BRANCH CONTROLLER, DION L 303.90 SA ALCOHOLISM UNSPECI 07/04/2010 MADL BRANCH CONTROLLER, DION L 305.20 SA CANNABIS ABUSE 07/04/2010 MADL BRANCH CONTROLLER, DION L 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 07/04/2010 MADL BRANCH CONTROLLER, DION L 296.32 MO DEPRESSIVE RECURRENT MODERATE 07/04/2010 MADL BRANCH CONTROLLER, DION L 300.02 AN GEN ANXIETY 07/04/2010 MADL BRANCH CONTROLLER, DION L 301.9 PD PERS DIS NOS 07/04/2010 MADL BRANCH CONTROLLER, DION L 303.90 SA ALCOHOLISM UNSPECI 07/04/2010 MADL BRANCH CONTROLLER, DION L 305.20 SA CANNABIS ABUSE 07/04/2010 MADL BRANCH CONTROLLER, DION L 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 07/04/2010 MADL BRANCH CONTROLLER, DION L 296.32 MO DEPRESSIVE RECURRENT MODERATE 07/04/2010 MADL BRANCH CONTROLLER, DION L 300.02 AN GEN ANXIETY 07/04/2010 MADL BRANCH CONTROLLER, DION L 301.9 PD PERS DIS NOS 07/04/2010 MADL BRANCH CONTROLLER, DION L 303.90 SA ALCOHOLISM UNSPECI 07/04/2010 MADL BRANCH CONTROLLER, DION L 305.20 SA CANNABIS ABUSE 07/04/2010 MADL BRANCH CONTROLLER, DION L 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 07/04/2010 MADL BRANCH CONTROLLER, DION L 296.32 MO DEPRESSIVE RECURRENT MODERATE 07/04/2010 MADL BRANCH CONTROLLER, DION L 300.02 AN GEN ANXIETY 07/04/2010 MADL BRANCH CONTROLLER, DION L 301.9 PD PERS DIS NOS 07/04/2010 MADL BRANCH CONTROLLER, DION L 303.90 SA ALCOHOLISM UNSPECI 07/04/2010 MADL BRANCH CONTROLLER, DION L 305.20 SA CANNABIS ABUSE 07/04/2010 MADL BRANCH CONTROLLER, DION L 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 07/04/2010 MADL BRANCH CONTROLLER, DION L 296.32 MO DEPRESSIVE RECURRENT MODERATE 07/04/2010 MADL BRANCH CONTROLLER, DION L 300.02 AN GEN ANXIETY 07/04/2010 MADL BRANCH CONTROLLER, DION L 301.9 PD PERS DIS NOS 07/04/2010 MADL BRANCH CONTROLLER, DION L 303.90 SA ALCOHOLISM UNSPECI 07/04/2010 MADL BRANCH CONTROLLER, DION L 305.20 SA CANNABIS ABUSE 07/04/2010 MADL BRANCH CONTROLLER, DION L 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 07/04/2010 MADL BRANCH CONTROLLER, DION L 296.32 MO DEPRESSIVE RECURRENT MODERATE 07/04/2010 MADL BRANCH CONTROLLER, DION L 300.02 AN GEN ANXIETY 07/04/2010 MADL BRANCH CONTROLLER, DION L 301.9 PD PERS DIS NOS 07/04/2010 MADL BRANCH CONTROLLER, DION L 303.90 SA ALCOHOLISM UNSPECI 07/04/2010 MADL BRANCH CONTROLLER, DION L 305.20 SA CANNABIS ABUSE 07/04/2010 MADL BRANCH CONTROLLER, DION L 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 07/04/2010 MADL BRANCH CONTROLLER, DION L 296.32 MO DEPRESSIVE RECURRENT MODERATE 07/04/2010 MADL BRANCH CONTROLLER, DION L 300.02 AN GEN ANXIETY 07/04/2010 MADL BRANCH CONTROLLER, DION L 301.9 PD PERS DIS NOS 07/04/2010 MADL BRANCH CONTROLLER, DION L 303.90 SA ALCOHOLISM UNSPECI 07/04/2010 MADL BRANCH CONTROLLER, DION L 305.20 SA CANNABIS ABUSE 07/04/2010 MADL BRANCH CONTROLLER, DION L 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 07/04/2010 MADL BRANCH CONTROLLER, DION L 296.32 MO DEPRESSIVE RECURRENT MODERATE 07/04/2010 MADL BRANCH CONTROLLER, DION L 300.02 AN GEN ANXIETY 07/04/2010 MADL BRANCH CONTROLLER, DION L 301.9 PD PERS DIS NOS 07/04/2010 MADL BRANCH CONTROLLER, DION L 303.90 SA ALCOHOLISM UNSPECI 07/04/2010 MADL BRANCH CONTROLLER, DION L 305.20 SA CANNABIS ABUSE 07/04/2010 MADL BRANCH CONTROLLER, DION L 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 07/04/2010 LOCKETT DO, SHANNA K 296.32 MO DEPRESSIVE RECURRENT MODERATE 07/04/2010 LOCKETT DO, SHANNA K 300.02 AN GEN ANXIETY 07/04/2010 LOCKETT DO, SHANNA K 301.9 PD PERS DIS NOS 07/04/2010 LOCKETT DO, SHANNA K 303.90 SA ALCOHOLISM UNSPECI 07/04/2010 LOCKETT DO, SHANNA K 305.20 SA CANNABIS ABUSE 07/04/2010 LOCKETT DO, SHANNA K 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 07/04/2010 CASTELLANO BRANCH CONTROLLER, BARRY R 296.32 MO DEPRESSIVE RECURRENT MODERATE 07/04/2010 CASTELLANO BRANCH CONTROLLER, BARRY R 300.02 AN GEN ANXIETY 07/04/2010 CASTELLANO BRANCH CONTROLLER, BARRY R 301.9 PD PERS DIS NOS 07/04/2010 CASTELLANO BRANCH CONTROLLER, BARRY R 303.90 SA ALCOHOLISM UNSPECI 07/04/2010 CASTELLANO BRANCH CONTROLLER, BARRY R 305.20 SA CANNABIS ABUSE 07/04/2010 CASTELLANO BRANCH CONTROLLER, BARRY R 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 07/04/2010 LOCKETT DO, SHANNA K 296.32 MO DEPRESSIVE RECURRENT MODERATE 07/04/2010 LOCKETT DO, SHANNA K 300.02 AN GEN ANXIETY 07/04/2010 LOCKETT DO, SHANNA K 301.9 PD PERS DIS NOS 07/04/2010 LOCKETT DO, SHANNA K 303.90 SA ALCOHOLISM UNSPECI 07/04/2010 LOCKETT DO, SHANNA K 305.20 SA CANNABIS ABUSE 07/04/2010 LOCKETT DO, SHANNA K 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 07/09/2010 787.91 Diarrhea 07/09/2010 789.00 Abdominal Pain Unspecified Site 07/09/2010 DON POOL MD 787.91 Diarrhea 07/09/2010 DON POOL MD 789.00 Abdominal Pain Unspecified Site 07/09/2010 АННА DEL TORO, ANNEL FRANCES 787.91 Diarrhea 07/09/2010 АННА BRANCH CONTROLLER, ANNEL FRANCES 789.00 Abdominal Pain Unspecified Site 07/09/2010 LOCKETT DO, SHANNA K 787.91 Diarrhea 07/09/2010 LOCKETT DO, SHANNA K 789.00 Abdominal Pain Unspecified Site 07/09/2010 LAURA BENNETT MD 787.91 Diarrhea 07/09/2010 LAURA BENNETT MD 789.00 Abdominal Pain Unspecified Site 07/09/2010 LOCKETT DO, SHANNA K 787.91 Diarrhea 07/09/2010 LOCKETT DO, SHANNA K 789.00 Abdominal Pain Unspecified Site 07/09/2010 787.91 Diarrhea 07/09/2010 789.00 Abdominal Pain Unspecified Site 07/09/2010 787.91 Diarrhea 07/09/2010 789.00 Abdominal Pain Unspecified Site 07/09/2010 BINDU PALM MD 787.91 Diarrhea 07/09/2010 BINDU PALM MD 789.00 Abdominal Pain Unspecified Site 07/09/2010 787.91 Diarrhea 07/09/2010 789.00 Abdominal Pain Unspecified Site 07/09/2010 787.91 Diarrhea 07/09/2010 789.00 Abdominal Pain Unspecified Site 07/09/2010 787.91 Diarrhea 07/09/2010 789.00 Abdominal Pain Unspecified Site 07/09/2010 787.91 Diarrhea 07/09/2010 789.00 Abdominal Pain Unspecified Site 07/09/2010 787.91 Diarrhea 07/09/2010 789.00 Abdominal Pain Unspecified Site 07/09/2010 787.91 Diarrhea 07/09/2010 789.00 Abdominal Pain Unspecified Site 07/09/2010 787.91 Diarrhea 07/09/2010 789.00 Abdominal Pain Unspecified Site 07/09/2010 BINDU PALM MD 787.91 Diarrhea 07/09/2010 BINDU PALM MD 789.00 Abdominal Pain Unspecified Site 07/09/2010 NÉSTOR MOREIRA, BINDU Hidalgo 787.91 Diarrhea 07/09/2010 BINDU PALM MD 789.00 Abdominal Pain Unspecified Site 07/09/2010 LOCKETT DO, SHANNA K 787.91 Diarrhea 07/09/2010 LOCKETT DO, SHANNA K 789.00 Abdominal Pain Unspecified Site 07/09/2010 BINDU PALM MD 787.91 Diarrhea 07/09/2010 BINDU PALM MD 789.00 Abdominal Pain Unspecified Site 07/09/2010 SHELBI BRANCH CONTROLLER, CARLINE S 787.91 Diarrhea 07/09/2010 SHELBI BRANCH CONTROLLER, CARLINE S 789.00 Abdominal Pain Unspecified Site 07/09/2010 SHELBI BRANCH CONTROLLER, CARLINE S 787.91 Diarrhea 07/09/2010 SHELBI BRANCH CONTROLLER, CARLINE S 789.00 Abdominal Pain Unspecified Site 07/09/2010 LAURA BENNETT MD 787.91 Diarrhea 07/09/2010 LAURA BENNETT MD 789.00 Abdominal Pain Unspecified Site 07/09/2010 ELIZABETH ROBIN MD 787.91 Diarrhea 07/09/2010 ELIZABETH ROBIN MD N 789.00 Abdominal Pain Unspecified Site 07/09/2010 LAURA BENNETT MD 787.91 Diarrhea 07/09/2010 LAURA BENNETT MD 789.00 Abdominal Pain Unspecified Site 07/09/2010 LOCKETT DO, SHANNA K 787.91 Diarrhea 07/09/2010 LOCKETT DO, SHANNA K 789.00 Abdominal Pain Unspecified Site 07/09/2010 MARIEE CASHERO BRANCH CONTROLLER, MARTÍNEZ N 787.91 Diarrhea 07/09/2010 MARIEE CASHERO BRANCH CONTROLLER, MARTÍNEZ N 789.00 Abdominal Pain Unspecified Site 07/09/2010 BINDU PALM MD 787.91 Diarrhea 07/09/2010 BINDU PALM MD 789.00 Abdominal Pain Unspecified Site 07/09/2010 MARIEE CASHERO BRANCH CONTROLLER, MARTÍNEZ N 787.91 Diarrhea 07/09/2010 MARIEE CASHERO BRANCH CONTROLLER, MARTÍNEZ N 789.00 Abdominal Pain Unspecified Site 07/09/2010 ANNEL JJ APRN 787.91 Diarrhea 07/09/2010 ANNEL JJ APRN 789.00 Abdominal Pain Unspecified Site 07/09/2010 LAURA BENNETT MD 787.91 Diarrhea 07/09/2010 LAURA BENNETT MD 789.00 Abdominal Pain Unspecified Site 07/09/2010 MADL BRANCH CONTROLLER, DION L 787.91 Diarrhea 07/09/2010 MADL BRANCH CONTROLLER, DION L 789.00 Abdominal Pain Unspecified Site 07/09/2010 LAURA BENNETT MD 787.91 Diarrhea 07/09/2010 LAURA BENNETT MD 789.00 Abdominal Pain Unspecified Site 07/09/2010 MADL BRANCH CONTROLLER, DION L 787.91 Diarrhea 07/09/2010 MADL BRANCH CONTROLLER, DION L 789.00 Abdominal Pain Unspecified Site 07/09/2010 LOCKETT DO, SHANNA K 787.91 Diarrhea 07/09/2010 LOCKETT DO, SHANNA K 789.00 Abdominal Pain Unspecified Site 07/09/2010 LOCKETT DO, SHANNA K 787.91 Diarrhea 07/09/2010 LOCKETT DO, SHANNA K 789.00 Abdominal Pain Unspecified Site 07/09/2010 MADL BRANCH CONTROLLER, DION L 787.91 Diarrhea 07/09/2010 MADL BRANCH CONTROLLER, DION L 789.00 Abdominal Pain Unspecified Site 07/09/2010 MADL BRANCH CONTROLLER, DION L 787.91 Diarrhea 07/09/2010 MADL BRANCH CONTROLLER, DION L 789.00 Abdominal Pain Unspecified Site 07/09/2010 MADL BRANCH CONTROLLER, DION L 787.91 Diarrhea 07/09/2010 MADL BRANCH CONTROLLER, DION L 789.00 Abdominal Pain Unspecified Site 07/09/2010 LOCKETT DO, SHANNA K 787.91 Diarrhea 07/09/2010 LOCKETT DO, SHANNA K 789.00 Abdominal Pain Unspecified Site 07/09/2010 MADL BRANCH CONTROLLER, DION L 787.91 Diarrhea 07/09/2010 MADL BRANCH CONTROLLER, DION L 789.00 Abdominal Pain Unspecified Site 07/09/2010 MADL BRANCH CONTROLLER, DION L 787.91 Diarrhea 07/09/2010 MADL BRANCH CONTROLLER, DION L 789.00 Abdominal Pain Unspecified Site 07/09/2010 MADL BRANCH CONTROLLER, DION L 787.91 Diarrhea 07/09/2010 MADL BRANCH CONTROLLER, DION L 789.00 Abdominal Pain Unspecified Site 07/09/2010 MADL BRANCH CONTROLLER, DION L 787.91 Diarrhea 07/09/2010 MADL BRANCH CONTROLLER, DION L 789.00 Abdominal Pain Unspecified Site 07/09/2010 MADL BRANCH CONTROLLER, DION L 787.91 Diarrhea 07/09/2010 MADL BRANCH CONTROLLER, DION L 789.00 Abdominal Pain Unspecified Site 07/09/2010 MADL BRANCH CONTROLLER, DION L 787.91 Diarrhea 07/09/2010 MADL BRANCH CONTROLLER, DION L 789.00 Abdominal Pain Unspecified Site 07/09/2010 MADL BRANCH CONTROLLER, DION L 787.91 Diarrhea 07/09/2010 MADL BRANCH CONTROLLER, DION L 789.00 Abdominal Pain Unspecified Site 07/09/2010 MADL BRANCH CONTROLLER, DION L 787.91 Diarrhea 07/09/2010 MADL BRANCH CONTROLLER, DION L 789.00 Abdominal Pain Unspecified Site 07/09/2010 MADL BRANCH CONTROLLER, DION L 787.91 Diarrhea 07/09/2010 MADL BRANCH CONTROLLER, DION L 789.00 Abdominal Pain Unspecified Site 07/09/2010 LOCKETT DO, SHANNA K 787.91 Diarrhea 07/09/2010 LOCKETT DO, SHANNA K 789.00 Abdominal Pain Unspecified Site 07/09/2010 CASTELLANO BRANCH CONTROLLER, BARRY R 787.91 Diarrhea 07/09/2010 CASTELLANO BRANCH CONTROLLER, BARRY R 789.00 Abdominal Pain Unspecified Site 07/09/2010 LOCKETT DO, SHANNA K 787.91 Diarrhea 07/09/2010 LOCKETT DO, SHANNA K 789.00 Abdominal Pain Unspecified Site 08/29/2010 Ot 486 08/29/2010 Ot 496 08/29/2010 Ot 786.05 09/02/2010 486 Pneumonia 09/02/2010 493.90 ASTHMA 09/02/2010 DON POOL MD 486 Pneumonia 09/02/2010 DON POOL MD 493.90 ASTHMA 09/02/2010 JJ KATEY, ANNEL FRANCES 486 Pneumonia 09/02/2010 АННА BRANCH CONTROLLER, ANNEL FRANCES 493.90 ASTHMA 09/02/2010 LOCKETT DO, SHANNA K 486 Pneumonia 09/02/2010 LOCKETT DO, SHANNA K 493.90 ASTHMA 09/02/2010 LAURA BENNETT MD 486 Pneumonia 09/02/2010 SABRINA MOREIRA, LAURA 493.90 ASTHMA 09/02/2010 LOCKETT DO, SHANNA K 486 Pneumonia 09/02/2010 LOCKETT DO, SHANNA K 493.90 ASTHMA 09/02/2010 486 Pneumonia 09/02/2010 493.90 ASTHMA 09/02/2010 486 Pneumonia 09/02/2010 493.90 ASTHMA 09/02/2010 NÉSTOR MOREIRA, BINDU M 486 Pneumonia 09/02/2010 NÉSTOR MOREIRA, BINDU Hidalgo 493.90 ASTHMA 09/02/2010 486 Pneumonia 09/02/2010 493.90 ASTHMA 09/02/2010 486 Pneumonia 09/02/2010 493.90 ASTHMA 09/02/2010 486 Pneumonia 09/02/2010 493.90 ASTHMA 09/02/2010 486 Pneumonia 09/02/2010 493.90 ASTHMA 09/02/2010 486 Pneumonia 09/02/2010 493.90 ASTHMA 09/02/2010 486 Pneumonia 09/02/2010 493.90 ASTHMA 09/02/2010 486 Pneumonia 09/02/2010 493.90 ASTHMA 09/02/2010 NÉSTOR MOREIRA, BINDU M 486 Pneumonia 09/02/2010 NÉSTOR MOREIRA, BINDU M 493.90 ASTHMA 09/02/2010 NÉSTOR MOREIRA, BINDU M 486 Pneumonia 09/02/2010 NÉSTOR MOREIRA, BINDU M 493.90 ASTHMA 09/02/2010 LOCKETT DO, SHANNA K 486 Pneumonia 09/02/2010 LOCKETT DO, SHANNA K 493.90 ASTHMA 09/02/2010 NÉSTOR MOREIRA, BINDU M 486 Pneumonia 09/02/2010 NÉSTOR MOREIRA, BNIDU Hidalgo 493.90 ASTHMA 09/02/2010 SHELBI BRANCH CONTROLLER, CARLINE S 486 Pneumonia 09/02/2010 HSELBI BRANCH CONTROLLER, CARLINE S 493.90 ASTHMA 09/02/2010 SHELBI BRANCH CONTROLLER, CARLINE S 486 Pneumonia 09/02/2010 SHELBI BRANCH CONTROLLER, CARLINE S 493.90 ASTHMA 09/02/2010 SABRINA MOREIRA, LAURA 486 Pneumonia 09/02/2010 SABRINA MOREIRA, LAURA 493.90 ASTHMA 09/02/2010 LOBITO MOREIRA, ELIZABETH N 486 Pneumonia 09/02/2010 LOBITO MOREIRA, ELIZABETH N 493.90 ASTHMA 09/02/2010 SABRINA MOREIRA, LAURA 486 Pneumonia 09/02/2010 SABRINA MOREIRA, LAURA 493.90 ASTHMA 09/02/2010 LOCKETT DO, SHANNA K 486 Pneumonia 09/02/2010 LOCKETT DO, SHANNA K 493.90 ASTHMA 09/02/2010 MARIEE CASHERO BRANCH CONTROLLER, MARTÍNEZ N 486 Pneumonia 09/02/2010 MARIEE CASHERO BRANCH CONTROLLER, MARTÍNEZ N 493.90 ASTHMA 09/02/2010 NÉSTOR MOREIRA, BINDU M 486 Pneumonia 09/02/2010 NÉSTOR MOREIRA, BINDU M 493.90 ASTHMA 09/02/2010 MARIEE CASHERO BRANCH CONTROLLER, MARTÍNEZ N 486 Pneumonia 09/02/2010 MARIEE CASHERO BRANCH CONTROLLER, MARTÍNEZ N 493.90 ASTHMA 09/02/2010 АННА BRANCH CONTROLLER, ANNEL FRANCES 486 Pneumonia 09/02/2010 АННА BRANCH CONTROLLER, ANNEL FRANCES 493.90 ASTHMA 09/02/2010 SABRINA MOREIRA, LAURA 486 Pneumonia 09/02/2010 SABRINA MOREIRA, LAURA 493.90 ASTHMA 09/02/2010 MADL BRANCH CONTROLLER, DION L 486 Pneumonia 09/02/2010 MADL BRANCH CONTROLLER, DION L 493.90 ASTHMA 09/02/2010 SABRINA MOREIRA, LAURA 486 Pneumonia 09/02/2010 SABRINA MOREIRA, LAURA 493.90 ASTHMA 09/02/2010 MADL BRANCH CONTROLLER, DION L 486 Pneumonia 09/02/2010 MADL BRANCH CONTROLLER, DION L 493.90 ASTHMA 09/02/2010 LOCKETT DO, SHANNA K 486 Pneumonia 09/02/2010 LOCKETT DO, SHANNA K 493.90 ASTHMA 09/02/2010 LOCKETT DO, SHANNA K 486 Pneumonia 09/02/2010 LOCKETT DO, SHANNA K 493.90 ASTHMA 09/02/2010 MADL BRANCH CONTROLLER, DION L 486 Pneumonia 09/02/2010 MADL BRANCH CONTROLLER, DION L 493.90 ASTHMA 09/02/2010 MADL BRANCH CONTROLLER, DION L 486 Pneumonia 09/02/2010 MADL BRANCH CONTROLLER, DION L 493.90 ASTHMA 09/02/2010 MADL BRANCH CONTROLLER, DION L 486 Pneumonia 09/02/2010 MADL BRANCH CONTROLLER, DION L 493.90 ASTHMA 09/02/2010 LOCKETT DO, SHANNA K 486 Pneumonia 09/02/2010 LOCKETT DO, SHANNA K 493.90 ASTHMA 09/02/2010 MADL BRANCH CONTROLLER, DION L 486 Pneumonia 09/02/2010 MADL BRANCH CONTROLLER, DION L 493.90 ASTHMA 09/02/2010 MADL BRANCH CONTROLLER, DION L 486 Pneumonia 09/02/2010 MADL BRANCH CONTROLLER, DION L 493.90 ASTHMA 09/02/2010 MADL BRANCH CONTROLLER, DION L 486 Pneumonia 09/02/2010 MADL BRANCH CONTROLLER, DION L 493.90 ASTHMA 09/02/2010 MADL BRANCH CONTROLLER, DION L 486 Pneumonia 09/02/2010 MADL BRANCH CONTROLLER, DION L 493.90 ASTHMA 09/02/2010 MADL BRANCH CONTROLLER, DION L 486 Pneumonia 09/02/2010 MADL BRANCH CONTROLLER, DION L 493.90 ASTHMA 09/02/2010 MADL BRANCH CONTROLLER, DION L 486 Pneumonia 09/02/2010 MADL BRANCH CONTROLLER, DION L 493.90 ASTHMA 09/02/2010 MADL BRANCH CONTROLLER, DION L 486 Pneumonia 09/02/2010 MADL BRANCH CONTROLLER, DION L 493.90 ASTHMA 09/02/2010 MADL BRANCH CONTROLLER, DION L 486 Pneumonia 09/02/2010 MADL BRANCH CONTROLLER, DION L 493.90 ASTHMA 09/02/2010 MADL BRANCH CONTROLLER, DION L 486 Pneumonia 09/02/2010 MADL BRANCH CONTROLLER, DION L 493.90 ASTHMA 09/02/2010 LOCKETT DO, SHANNA K 486 Pneumonia 09/02/2010 LOCKETT DO, SHANNA K 493.90 ASTHMA 09/02/2010 CASTELLANO BRANCH CONTROLLER, BARRY R 486 Pneumonia 09/02/2010 CASTELLANO BRANCH CONTROLLER, BARRY R 493.90 ASTHMA 09/02/2010 LOCKETT DO, SHANNA K 486 Pneumonia 09/02/2010 LOCKETT DO, SHANNA K 493.90 ASTHMA 10/07/2010 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 10/07/2010 YRN MOREIRA, DON 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 10/07/2010 АННА DEL TORO, ANNEL FRANCES 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 10/07/2010 LOCKETT DO, SHANNA K 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 10/07/2010 LAURA BENNETT MD 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 10/07/2010 LOCKETT DO, SHANNA K 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 10/07/2010 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 10/07/2010 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 10/07/2010 BINDU PALM MD 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 10/07/2010 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 10/07/2010 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 10/07/2010 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 10/07/2010 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 10/07/2010 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 10/07/2010 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 10/07/2010 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 10/07/2010 BINDU PALM MD 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 10/07/2010 BINDU PALM MD M 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 10/07/2010 LOCKETT DO, SHANNA K 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 10/07/2010 BINDU PALM MD M 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 10/07/2010 SHELBI BRANCH CONTROLLER, CARLINE S 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 10/07/2010 SHELBI BRANCH CONTROLLER, CARLINE S 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 10/07/2010 LAURA BENNETT MD 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 10/07/2010 LOBITO MOREIRA, ELIZABETH N 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 10/07/2010 LAURA BENNETT MD 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 10/07/2010 LOCKETT DO, SHANNA K 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 10/07/2010 MARIEE CASHERO BRANCH CONTROLLER, MARTÍNEZ N 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 10/07/2010 BINDU PALM MD M 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 10/07/2010 MARIEE CASHERO BRANCH CONTROLLER, MARTÍNEZ N 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 10/07/2010 АННА DEL TORO ANNEL FRANCES 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 10/07/2010 LAURA BENNETT MD 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 10/07/2010 MADL BRANCH CONTROLLER, DION L 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 10/07/2010 LAURA BENNETT MD 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 10/07/2010 MADL BRANCH CONTROLLER, DION L 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 10/07/2010 LOCKETT DO, SHANNA K 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 10/07/2010 LOCKETT DO, SHANNA K 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 10/07/2010 MADL BRANCH CONTROLLER, DION L 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 10/07/2010 MADL BRANCH CONTROLLER, DION L 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 10/07/2010 MADL BRANCH CONTROLLER, DION L 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 10/07/2010 LOCKETT DO, SHANNA K 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 10/07/2010 MADL BRANCH CONTROLLER, DION L 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 10/07/2010 MADL BRANCH CONTROLLER, DION L 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 10/07/2010 MADL BRANCH CONTROLLER, DION L 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 10/07/2010 MADL BRANCH CONTROLLER, DION L 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 10/07/2010 MADL BRANCH CONTROLLER, DION L 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 10/07/2010 MADL BRANCH CONTROLLER, DION L 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 10/07/2010 MADL BRANCH CONTROLLER, DION L 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 10/07/2010 MADL BRANCH CONTROLLER, DION L 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 10/07/2010 MADL BRANCH CONTROLLER, DION L 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 10/07/2010 LOCKETT DO, SHANNA K 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 10/07/2010 CASTELLANO BRANCH CONTROLLER, BARRY R 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 10/07/2010 LOCKETT DO, SHANNA K 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 12/30/2010 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 12/30/2010 491.21 Bronchitis Aecb 12/30/2010 792.1 Nonspecific Abnormal Findings In Stool Contents 12/30/2010 POOL DON MOREIRA 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 12/30/2010 DON POOL MD 491.21 Bronchitis Aecb 12/30/2010 DON POOL MD 792.1 Nonspecific Abnormal Findings In Stool Contents 12/30/2010 ANNEL JJ APRN 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 12/30/2010 ANNEL JJ APRN 491.21 Bronchitis Aecb 12/30/2010 ANNEL JJ APRN 792.1 Nonspecific Abnormal Findings In Stool Contents 12/30/2010 LEVY CARRANZA SHANNA K 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 12/30/2010 SHANNA LOCKETT DO K 491.21 Bronchitis Aecb 12/30/2010 GRANT LOCKETT DOA K 792.1 Nonspecific Abnormal Findings In Stool Contents 12/30/2010 LAURA BENNETT MD 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 12/30/2010 LAURA BENNETT MD 491.21 Bronchitis Aecb 12/30/2010 LAURA BENNETT MD 792.1 Nonspecific Abnormal Findings In Stool Contents 12/30/2010 GRANT LOCKETT DOA K 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 12/30/2010 GRANT LOCKETT DOA K 491.21 Bronchitis Aecb 12/30/2010 GRANT LOCKETT DOA K 792.1 Nonspecific Abnormal Findings In Stool Contents 12/30/2010 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 12/30/2010 491.21 Bronchitis Aecb 12/30/2010 792.1 Nonspecific Abnormal Findings In Stool Contents 12/30/2010 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 12/30/2010 491.21 Bronchitis Aecb 12/30/2010 792.1 Nonspecific Abnormal Findings In Stool Contents 12/30/2010 BINDU PALM MD 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 12/30/2010 BINDU PALM MD 491.21 Bronchitis Aecb 12/30/2010 BINDU PALM MD 792.1 Nonspecific Abnormal Findings In Stool Contents 12/30/2010 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 12/30/2010 491.21 Bronchitis Aecb 12/30/2010 792.1 Nonspecific Abnormal Findings In Stool Contents 12/30/2010 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 12/30/2010 491.21 Bronchitis Aecb 12/30/2010 792.1 Nonspecific Abnormal Findings In Stool Contents 12/30/2010 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 12/30/2010 491.21 Bronchitis Aecb 12/30/2010 792.1 Nonspecific Abnormal Findings In Stool Contents 12/30/2010 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 12/30/2010 491.21 Bronchitis Aecb 12/30/2010 792.1 Nonspecific Abnormal Findings In Stool Contents 12/30/2010 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 12/30/2010 491.21 Bronchitis Aecb 12/30/2010 792.1 Nonspecific Abnormal Findings In Stool Contents 12/30/2010 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 12/30/2010 491.21 Bronchitis Aecb 12/30/2010 792.1 Nonspecific Abnormal Findings In Stool Contents 12/30/2010 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 12/30/2010 491.21 Bronchitis Aecb 12/30/2010 792.1 Nonspecific Abnormal Findings In Stool Contents 12/30/2010 BINDU PALM MD 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 12/30/2010 BINDU PALM MD 491.21 Bronchitis Aecb 12/30/2010 BINDU PALM MD 792.1 Nonspecific Abnormal Findings In Stool Contents 12/30/2010 BINDU PALM MD 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 12/30/2010 BINDU PALM MD 491.21 Bronchitis Aecb 12/30/2010 BINDU PALM MD 792.1 Nonspecific Abnormal Findings In Stool Contents 12/30/2010 LOCKETT DO, SHANNA K 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 12/30/2010 LOCKETT DO, SHANNA K 491.21 Bronchitis Aecb 12/30/2010 LOCKETT DO, SHANNA K 792.1 Nonspecific Abnormal Findings In Stool Contents 12/30/2010 BINDU PALM MD 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 12/30/2010 BINDU PALM MD 491.21 Bronchitis Aecb 12/30/2010 BINDU PALM MD 792.1 Nonspecific Abnormal Findings In Stool Contents 12/30/2010 SHELBI DEL TORO CARLINE S 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 12/30/2010 LOWELL MARIO APRNNDA S 491.21 Bronchitis Aecb 12/30/2010 SHELBI DEL TORO CARLINE S 792.1 Nonspecific Abnormal Findings In Stool Contents 12/30/2010 SHELBI DEL TORO CARLINE S 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 12/30/2010 LOWELL MARIO APRNNDA S 491.21 Bronchitis Aecb 12/30/2010 CAROLYN MARIO APRNA S 792.1 Nonspecific Abnormal Findings In Stool Contents 12/30/2010 LAURA BENNETT MD 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 12/30/2010 LAURA BENNETT MD 491.21 Bronchitis Aecb 12/30/2010 LAURA BENNETT MD 792.1 Nonspecific Abnormal Findings In Stool Contents 12/30/2010 ELIZABETH ROBIN MD N 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 12/30/2010 ELIZABETH ROBIN MD N 491.21 Bronchitis Aecb 12/30/2010 ELIZABETH ROBIN MD N 792.1 Nonspecific Abnormal Findings In Stool Contents 12/30/2010 LAURA BENNETT MD 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 12/30/2010 LAURA BENNETT MD 491.21 Bronchitis Aecb 12/30/2010 LAURA BENNETT MD 792.1 Nonspecific Abnormal Findings In Stool Contents 12/30/2010 LEVY CARRANZA SHANNA K 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 12/30/2010 LOCKETT DO SHANNA K 491.21 Bronchitis Aecb 12/30/2010 LOCKETT DO SHANNA K 792.1 Nonspecific Abnormal Findings In Stool Contents 12/30/2010 SUJATHA MARY APRNCY N 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 12/30/2010 MARTÍNEZ MARY APRN N 491.21 Bronchitis Aecb 12/30/2010 MARIEE CASHERO BRANCH CONTROLLER, MARTÍNEZ N 792.1 Nonspecific Abnormal Findings In Stool Contents 12/30/2010 BINDU PALM MD 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 12/30/2010 BINDU PALM MD 491.21 Bronchitis Aecb 12/30/2010 BINDU PALM MD 792.1 Nonspecific Abnormal Findings In Stool Contents 12/30/2010 MARIEE GRISELDAERO BRANCH CONTROLLER, MARTÍNEZ N 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 12/30/2010 MARIEE CASHERO BRANCH CONTROLLER, MARTÍNEZ N 491.21 Bronchitis Aecb 12/30/2010 MARIEE CASHERO BRANCH CONTROLLER, MARTÍNEZ N 792.1 Nonspecific Abnormal Findings In Stool Contents 12/30/2010 АННА DE LUNANANNEL 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 12/30/2010 АННА DE LUNAAlexia ANNEL FRANCES 491.21 Bronchitis Aecb 12/30/2010 ANNEL JJ APRN 792.1 Nonspecific Abnormal Findings In Stool Contents 12/30/2010 LAURA BENNETT MD 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 12/30/2010 LAURA BENNETT MD 491.21 Bronchitis Aecb 12/30/2010 LAURA BENNETT MD 792.1 Nonspecific Abnormal Findings In Stool Contents 12/30/2010 BIRDIEL LAURE DEL TOROA L 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 12/30/2010 BIRDIEL LIANA DEL TORONYA L 491.21 Bronchitis Aecb 12/30/2010 BIRDIEL BRANCH CONTROLLER, DION L 792.1 Nonspecific Abnormal Findings In Stool Contents 12/30/2010 LAURA BENNETT MD 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 12/30/2010 LAURA BENNETT MD 491.21 Bronchitis Aecb 12/30/2010 LAURA BENNETT MD 792.1 Nonspecific Abnormal Findings In Stool Contents 12/30/2010 BIRDIEL LIANA DEL TORONYA L 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 12/30/2010 MADL BRANCH CONTROLLER, DION L 491.21 Bronchitis Aecb 12/30/2010 MADL BRANCH CONTROLLER, DION L 792.1 Nonspecific Abnormal Findings In Stool Contents 12/30/2010 LOCKETT DO, SHANNA K 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 12/30/2010 LOCKETT DO, SHANNA K 491.21 Bronchitis Aecb 12/30/2010 LOCKETT DO, SHANNA K 792.1 Nonspecific Abnormal Findings In Stool Contents 12/30/2010 LOCKETT DO, SHANNA K 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 12/30/2010 LOCKETT DO, SHANNA K 491.21 Bronchitis Aecb 12/30/2010 LOCKETT DO, SHANNA K 792.1 Nonspecific Abnormal Findings In Stool Contents 12/30/2010 MADL BRANCH CONTROLLER, DION L 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 12/30/2010 MADL BRANCH CONTROLLER, DION L 491.21 Bronchitis Aecb 12/30/2010 MADL BRANCH CONTROLLER, DION L 792.1 Nonspecific Abnormal Findings In Stool Contents 12/30/2010 MADL BRANCH CONTROLLER, DION L 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 12/30/2010 MADL BRANCH CONTROLLER, DION L 491.21 Bronchitis Aecb 12/30/2010 MADL BRANCH CONTROLLER, DION L 792.1 Nonspecific Abnormal Findings In Stool Contents 12/30/2010 MADL BRANCH CONTROLLER, DION L 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 12/30/2010 MADL BRANCH CONTROLLER, DION L 491.21 Bronchitis Aecb 12/30/2010 MADL BRANCH CONTROLLER, DION L 792.1 Nonspecific Abnormal Findings In Stool Contents 12/30/2010 LOCKETT DO, SHANNA K 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 12/30/2010 LOCKETT DO, SHANNA K 491.21 Bronchitis Aecb 12/30/2010 LOCKETT DO, SHANNA K 792.1 Nonspecific Abnormal Findings In Stool Contents 12/30/2010 MADL BRANCH CONTROLLER, DION L 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 12/30/2010 MADL BRANCH CONTROLLER, DION L 491.21 Bronchitis Aecb 12/30/2010 MADL BRANCH CONTROLLER, DION L 792.1 Nonspecific Abnormal Findings In Stool Contents 12/30/2010 MADL BRANCH CONTROLLER, DION L 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 12/30/2010 MADL BRANCH CONTROLLER, DION L 491.21 Bronchitis Aecb 12/30/2010 MADL BRANCH CONTROLLER, DION L 792.1 Nonspecific Abnormal Findings In Stool Contents 12/30/2010 MADL BRANCH CONTROLLER, DION L 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 12/30/2010 MADL BRANCH CONTROLLER, DION L 491.21 Bronchitis Aecb 12/30/2010 MADL BRANCH CONTROLLER, DION L 792.1 Nonspecific Abnormal Findings In Stool Contents 12/30/2010 MADL BRANCH CONTROLLER, DION L 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 12/30/2010 MADL BRANCH CONTROLLER, DION L 491.21 Bronchitis Aecb 12/30/2010 MADL BRANCH CONTROLLER, DION L 792.1 Nonspecific Abnormal Findings In Stool Contents 12/30/2010 MADL BRANCH CONTROLLER, DION L 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 12/30/2010 MADL BRANCH CONTROLLER, DION L 491.21 Bronchitis Aecb 12/30/2010 MADL BRANCH CONTROLLER, DION L 792.1 Nonspecific Abnormal Findings In Stool Contents 12/30/2010 MADL BRANCH CONTROLLER, DION L 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 12/30/2010 MADL BRANCH CONTROLLER, DION L 491.21 Bronchitis Aecb 12/30/2010 MADL BRANCH CONTROLLER, DION L 792.1 Nonspecific Abnormal Findings In Stool Contents 12/30/2010 MADL BRANCH CONTROLLER, DION L 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 12/30/2010 MADL BRANCH CONTROLLER, DION L 491.21 Bronchitis Aecb 12/30/2010 MADL BRANCH CONTROLLER, DION L 792.1 Nonspecific Abnormal Findings In Stool Contents 12/30/2010 MADL BRANCH CONTROLLER, DION L 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 12/30/2010 MADL BRANCH CONTROLLER, DION L 491.21 Bronchitis Aecb 12/30/2010 MADL BRANCH CONTROLLER, DION L 792.1 Nonspecific Abnormal Findings In Stool Contents 12/30/2010 MADL DION [place] L 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 12/30/2010 MADL LAURE [place] L 491.21 Bronchitis Aecb 12/30/2010 MADL LAURE [place] L 792.1 Nonspecific Abnormal Findings In Stool Contents 12/30/2010 LOCKETT DO, SHANNA K 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 12/30/2010 LOCKETT DO, SHANNA K 491.21 Bronchitis Aecb 12/30/2010 LOCKETT DO, SHANNA K 792.1 Nonspecific Abnormal Findings In Stool Contents 12/30/2010 CASTELLANO BRANCH CONTROLLER, BARRY R 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 12/30/2010 CASTELLANO BRANCH CONTROLLER, BARRY R 491.21 Bronchitis Aecb 12/30/2010 CASTELLANO BRANCH CONTROLLER, BARRY R 792.1 Nonspecific Abnormal Findings In Stool Contents 12/30/2010 LOCKETT DO, SHANNA K 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 12/30/2010 LOCKETT DO, SHANNA K 491.21 Bronchitis Aecb 12/30/2010 LOCKETT DO, SHANNA K 792.1 Nonspecific Abnormal Findings In Stool Contents 01/12/2011 Ot 305.1 TOBACCO USE DISORDER 01/12/2011 Ot 491.21 OBSTR CHRONIC BRONCHITIS, W (ACUTE) EXAC 01/12/2011 Ot 786.05 SHORTNESS OF BREATH 04/13/2011 Ot 473.9 CHRONIC SINUSITIS NOS 04/13/2011 Ot 491.21 OBSTR CHRONIC BRONCHITIS, W (ACUTE) EXAC 04/13/2011 Ot 786.05 SHORTNESS OF BREATH 05/01/2011 304.80 SA POLYSUB DEP 05/01/2011 YRN MOREIRA, DON 304.80 [facility] POLYS[facility] DEP 05/01/2011 ANNEL JJ APRN 304.80 SA POLYSUB DEP 05/01/2011 SHANNA LOCKETT DO 304.80 SA POLYSUB DEP 05/01/2011 SABRINA MOREIRA, LAURA 304.80 SA POLYSUB DEP 05/01/2011 SHANNA LOCKETT DO 304.80 SA POLYSUB DEP 05/01/2011 304.80 SA POLYSUB DEP 05/01/2011 304.80 SA POLYSUB DEP 05/01/2011 NÉSTOR MOREIRA, BINDU Hidalgo 304.80 SA POLYSUB DEP 05/01/2011 304.80 SA POLYSUB DEP 05/01/2011 304.80 SA POLYSUB DEP 05/01/2011 304.80 SA POLYSUB DEP 05/01/2011 304.80 SA POLYSUB DEP 05/01/2011 304.80 SA POLYSUB DEP 05/01/2011 304.80 SA POLYSUB DEP 05/01/2011 304.80 SA POLYSUB DEP 05/01/2011 BINDU PALM MD 304.80 SA POLYSUB DEP 05/01/2011 BINDU PALM MD 304.80 SA POLYSUB DEP 05/01/2011 SHANNA LOCKETT DO K 304.80 SA POLYSUB DEP 05/01/2011 BINDU PALM MD 304.80 SA POLYSUB DEP 05/01/2011 CAROLYN MARIO APRNA S 304.80 SA POLYSUB DEP 05/01/2011 CAROLYN MARIO APRNA S 304.80 SA POLYSUB DEP 05/01/2011 LAURA BENNETT MD 304.80 SA POLYSUB DEP 05/01/2011 ELIZABETH ROBIN MD N 304.80 SA POLYSUB DEP 05/01/2011 LAURA BENNETT MD 304.80 SA POLYSUB DEP 05/01/2011 SHANNA LOCKETT DO K 304.80 SA POLYSUB DEP 05/01/2011 MARTÍNEZ MARY APRN N 304.80 SA POLYSUB DEP 05/01/2011 BINDU PALM MD 304.80 SA POLYSUB DEP 05/01/2011 MARTÍNEZ MARY APRN N 304.80 SA POLYSUB DEP 05/01/2011 ANNEL JJ APRN 304.80 SA POLYSUB DEP 05/01/2011 LAURA BENNETT MD 304.80 SA POLYSUB DEP 05/01/2011 DION SOTO APRN 304.80 SA POLYSUB DEP 05/01/2011 LAURA BENNETT MD 304.80 SA POLYSUB DEP 05/01/2011 DION SOTO APRN 304.80 SA POLYSUB DEP 05/01/2011 SHANNA LOCKETT DO K 304.80 SA POLYSUB DEP 05/01/2011 SHANNA LOCKETT DO K 304.80 SA POLYSUB DEP 05/01/2011 MADL BRANCH CONTROLLER, DION L 304.80 SA POLYSUB DEP 05/01/2011 MADL BRANCH CONTROLLER, DION L 304.80 SA POLYSUB DEP 05/01/2011 MADL BRANCH CONTROLLER, DION L 304.80 SA POLYSUB DEP 05/01/2011 LOCKETT DO SHANNA K 304.80 SA POLYSUB DEP 05/01/2011 MADL BRANCH CONTROLLER, DION L 304.80 SA POLYSUB DEP 05/01/2011 MADL BRANCH CONTROLLER, DION L 304.80 SA POLYSUB DEP 05/01/2011 MADL BRANCH CONTROLLER, DION L 304.80 SA POLYSUB DEP 05/01/2011 MADL BRANCH CONTROLLER, DION L 304.80 SA POLYSUB DEP 05/01/2011 MADL BRANCH CONTROLLER, DION L 304.80 SA POLYSUB DEP 05/01/2011 MADL BRANCH CONTROLLER, DION L 304.80 SA POLYSUB DEP 05/01/2011 MADL BRANCH CONTROLLER, DION L 304.80 SA POLYSUB DEP 05/01/2011 MADL BRANCH CONTROLLER, DION L 304.80 SA POLYSUB DEP 05/01/2011 MADL BRANCH CONTROLLER, DION L 304.80 SA POLYSUB DEP 05/01/2011 LOCKETT DOSHANNA K 304.80 SA POLYSUB DEP 05/01/2011 CASTELLANO BRANCH CONTROLLER, BARRY R 304.80 SA POLYSUB DEP 05/01/2011 LOCKETT DOSHANNA K 304.80 SA POLYSUB DEP 05/26/2011 V73.89 Other Specified Viral Diseases 05/26/2011 DON POOL MD V73.89 Other Specified Viral Diseases 05/26/2011 ANNEL JJ APRN V73.89 Other Specified Viral Diseases 05/26/2011 SHANNA LOCKETT DO V73.89 Other Specified Viral Diseases 05/26/2011 LAURA BENNETT MD V73.89 Other Specified Viral Diseases 05/26/2011 SHANNA LOCKETT DO V73.89 Other Specified Viral Diseases 05/26/2011 V73.89 Other Specified Viral Diseases 05/26/2011 V73.89 Other Specified Viral Diseases 05/26/2011 BINDU PALM MD V73.89 Other Specified Viral Diseases 05/26/2011 V73.89 Other Specified Viral Diseases 05/26/2011 V73.89 Other Specified Viral Diseases 05/26/2011 V73.89 Other Specified Viral Diseases 05/26/2011 V73.89 Other Specified Viral Diseases 05/26/2011 V73.89 Other Specified Viral Diseases 05/26/2011 V73.89 Other Specified Viral Diseases 05/26/2011 V73.89 Other Specified Viral Diseases 05/26/2011 BINDU PALM MD V73.89 Other Specified Viral Diseases 05/26/2011 BINDU PALM MD V73.89 Other Specified Viral Diseases 05/26/2011 SHANNA LOCKETT DO K V73.89 Other Specified Viral Diseases 05/26/2011 BINDU PALM MD V73.89 Other Specified Viral Diseases 05/26/2011 SHELBI BRANCH CONTROLLER, CARLINE S V73.89 Other Specified Viral Diseases 05/26/2011 SHELBI BRANCH CONTROLLER, CARLINE S V73.89 Other Specified Viral Diseases 05/26/2011 LAURA BENNETT MD V73.89 Other Specified Viral Diseases 05/26/2011 ELIZABETH ROBIN MD V73.89 Other Specified Viral Diseases 05/26/2011 LAURA BENNETT MD V73.89 Other Specified Viral Diseases 05/26/2011 LOCKETT DOSHANNA K V73.89 Other Specified Viral Diseases 05/26/2011 MARIEE CASHERO MARTÍNEZ DEL TORO N V73.89 Other Specified Viral Diseases 05/26/2011 BINDU PALM MD V73.89 Other Specified Viral Diseases 05/26/2011 MARIEE CASHERO MARTÍNEZ DEL TOR[place] N V73.89 Other Specified Viral Diseases 05/26/2011 АННА DEL TORO ANNEL GOLDSTEINH V73.89 Other Specified Viral Diseases 05/26/2011 LAURA BENNETT MD V73.89 Other Specified Viral Diseases 05/26/2011 MADL BRANCH CONTROLLERDION L V73.89 Other Specified Viral Diseases 05/26/2011 LAURA BENNETT MD V73.89 Other Specified Viral Diseases 05/26/2011 MADL BRANCH CONTROLLERDION L V73.89 Other Specified Viral Diseases 05/26/2011 LOCKETT SHANNA CARRANZA K V73.89 Other Specified Viral Diseases 05/26/2011 LOCKETT SHANNA CARRANZA K V73.89 Other Specified Viral Diseases 05/26/2011 MADL BRANCH CONTROLLER DION L V73.89 Other Specified Viral Diseases 05/26/2011 MADL BRANCH CONTROLLER, DION L V73.89 Other Specified Viral Diseases 05/26/2011 MADL BRANCH CONTROLLER, DION L V73.89 Other Specified Viral Diseases 05/26/2011 LEVY CARRANZASHANNA K V73.89 Other Specified Viral Diseases 05/26/2011 MADL BRANCH CONTROLLER, DION L V73.89 Other Specified Viral Diseases 05/26/2011 MADL BRANCH CONTROLLER, DION L V73.89 Other Specified Viral Diseases 05/26/2011 MADL BRANCH CONTROLLER, DION L V73.89 Other Specified Viral Diseases 05/26/2011 MADL BRANCH CONTROLLER, DION L V73.89 Other Specified Viral Diseases 05/26/2011 MADL BRANCH CONTROLLER, DION L V73.89 Other Specified Viral Diseases 05/26/2011 MADL BRANCH CONTROLLER, DION L V73.89 Other Specified Viral Diseases 05/26/2011 MADL BRANCH CONTROLLER, DION L V73.89 Other Specified Viral Diseases 05/26/2011 MADL BRANCH CONTROLLER, DION L V73.89 Other Specified Viral Diseases 05/26/2011 MADL BRANCH CONTROLLER, DION L V73.89 Other Specified Viral Diseases 05/26/2011 LOCKETT SHANNA CARRANZA K V73.89 Other Specified Viral Diseases 05/26/2011 CASTELLANO BRANCH CONTROLLERRENOIA R V73.89 Other Specified Viral Diseases 05/26/2011 LOCKETT SHANNA CARRANZA K V73.89 Other Specified Viral Diseases 05/27/2011 272.1 HYPERTRIGLYCERIDEMIA 05/27/2011 288.60 Leukocytosis 05/27/2011 V58.69 MEDICATION HIGH RISK 05/27/2011 DON POOL MD 272.1 HYPERTRIGLYCERIDEMIA 05/27/2011 DON POOL MD 288.60 Leukocytosis 05/27/2011 DON POOL MD V58.69 MEDICATION HIGH RISK 05/27/2011 JJ BRANCH CONTROLLER, ANNEL FRANCES 272.1 HYPERTRIGLYCERIDEMIA 05/27/2011 JJ BRANCH CONTROLLER ANNEL FRANCES 288.60 Leukocytosis 05/27/2011 JJ BRANCH CONTROLLER, ANNEL FRANCES V58.69 MEDICATION HIGH RISK 05/27/2011 SHANNA LOCKETT DO 272.1 HYPERTRIGLYCERIDEMIA 05/27/2011 LOCKETT DO, SHANNA K 288.60 Leukocytosis 05/27/2011 LEVY GRANTA K V58.69 MEDICATION HIGH RISK 05/27/2011 LAURA BENNETT MD 272.1 HYPERTRIGLYCERIDEMIA 05/27/2011 LAURA BENNETT MD 288.60 Leukocytosis 05/27/2011 LAURA BENNETT MD V58.69 MEDICATION HIGH RISK 05/27/2011 LEVY CARRANZA SHANNA K 272.1 HYPERTRIGLYCERIDEMIA 05/27/2011 LEVY CARRANZA SHANNA K 288.60 Leukocytosis 05/27/2011 LEVY CARRANZA SHANNA K V58.69 MEDICATION HIGH RISK 05/27/2011 272.1 HYPERTRIGLYCERIDEMIA 05/27/2011 288.60 Leukocytosis 05/27/2011 V58.69 MEDICATION HIGH RISK 05/27/2011 272.1 HYPERTRIGLYCERIDEMIA 05/27/2011 288.60 Leukocytosis 05/27/2011 V58.69 MEDICATION HIGH RISK 05/27/2011 BINDU PALM MD 272.1 HYPERTRIGLYCERIDEMIA 05/27/2011 BINDU PALM MD 288.60 Leukocytosis 05/27/2011 BINDU PALM MD V58.69 MEDICATION HIGH RISK 05/27/2011 272.1 HYPERTRIGLYCERIDEMIA 05/27/2011 288.60 Leukocytosis 05/27/2011 V58.69 MEDICATION HIGH RISK 05/27/2011 272.1 HYPERTRIGLYCERIDEMIA 05/27/2011 288.60 Leukocytosis 05/27/2011 V58.69 MEDICATION HIGH RISK 05/27/2011 272.1 HYPERTRIGLYCERIDEMIA 05/27/2011 288.60 Leukocytosis 05/27/2011 V58.69 MEDICATION HIGH RISK 05/27/2011 272.1 HYPERTRIGLYCERIDEMIA 05/27/2011 288.60 Leukocytosis 05/27/2011 V58.69 MEDICATION HIGH RISK 05/27/2011 272.1 HYPERTRIGLYCERIDEMIA 05/27/2011 288.60 Leukocytosis 05/27/2011 V58.69 MEDICATION HIGH RISK 05/27/2011 272.1 HYPERTRIGLYCERIDEMIA 05/27/2011 288.60 Leukocytosis 05/27/2011 V58.69 MEDICATION HIGH RISK 05/27/2011 272.1 HYPERTRIGLYCERIDEMIA 05/27/2011 288.60 Leukocytosis 05/27/2011 V58.69 MEDICATION HIGH RISK 05/27/2011 BINDU PALM MD 272.1 HYPERTRIGLYCERIDEMIA 05/27/2011 BINDU PALM MD 288.60 Leukocytosis 05/27/2011 BINDU PALM MD V58.69 MEDICATION HIGH RISK 05/27/2011 BINDU PALM MD M 272.1 HYPERTRIGLYCERIDEMIA 05/27/2011 BINDU PALM MD M 288.60 Leukocytosis 05/27/2011 BINDU PALM MD V58.69 MEDICATION HIGH RISK 05/27/2011 LOCKETT DO, SHANNA K 272.1 HYPERTRIGLYCERIDEMIA 05/27/2011 LOCKETT DO, SHANNA K 288.60 Leukocytosis 05/27/2011 LOCKETT DO, SHANNA K V58.69 MEDICATION HIGH RISK 05/27/2011 BINDU PALM MD 272.1 HYPERTRIGLYCERIDEMIA 05/27/2011 BINDU PALM MD 288.60 Leukocytosis 05/27/2011 BINDU PALM MD V58.69 MEDICATION HIGH RISK 05/27/2011 SHELBI BRANCH CONTROLLER, CARLINE S 272.1 HYPERTRIGLYCERIDEMIA 05/27/2011 SHELBI BRANCH CONTROLLER, CARLINE S 288.60 Leukocytosis 05/27/2011 SHELBI BRANCH CONTROLLER, CARLINE S V58.69 MEDICATION HIGH RISK 05/27/2011 SHELBI BRANCH CONTROLLER, CARLINE S 272.1 HYPERTRIGLYCERIDEMIA 05/27/2011 SHELBI BRANCH CONTROLLER, CARLINE S 288.60 Leukocytosis 05/27/2011 SHELBI BRANCH CONTROLLER, CARLINE S V58.69 MEDICATION HIGH RISK 05/27/2011 LAURA BENNETT MD 272.1 HYPERTRIGLYCERIDEMIA 05/27/2011 LAURA BENNETT MD 288.60 Leukocytosis 05/27/2011 LAURA BENNETT MD V58.69 MEDICATION HIGH RISK 05/27/2011 ELIZABETH ROBIN MD 272.1 HYPERTRIGLYCERIDEMIA 05/27/2011 ELIZABETH ROBIN MD 288.60 Leukocytosis 05/27/2011 ELIZABETH ROBIN MD V58.69 MEDICATION HIGH RISK 05/27/2011 LAURA BENNETT MD 272.1 HYPERTRIGLYCERIDEMIA 05/27/2011 LAURA BENNETT MD 288.60 Leukocytosis 05/27/2011 LAURA BENNETT MD V58.69 MEDICATION HIGH RISK 05/27/2011 LOCKETT DO, SHANNA K 272.1 HYPERTRIGLYCERIDEMIA 05/27/2011 LOCKETT DO, SHANNA K 288.60 Leukocytosis 05/27/2011 LOCKETT DO, SHANNA K V58.69 MEDICATION HIGH RISK 05/27/2011 MARIEE CASHERO BRANCH CONTROLLER, MARTÍNEZ N 272.1 HYPERTRIGLYCERIDEMIA 05/27/2011 MARIEE CASHERO BRANCH CONTROLLER, MARTÍNEZ N 288.60 Leukocytosis 05/27/2011 MARIEE CASHERO BRANCH CONTROLLER, MARTÍNEZ N V58.69 MEDICATION HIGH RISK 05/27/2011 BINDU PALM MD 272.1 HYPERTRIGLYCERIDEMIA 05/27/2011 BINDU PALM MD 288.60 Leukocytosis 05/27/2011 BINDU PALM MD V58.69 MEDICATION HIGH RISK 05/27/2011 MARIEE CASHERO BRANCH CONTROLLER, MARTÍNEZ N 272.1 HYPERTRIGLYCERIDEMIA 05/27/2011 MARIEE CASHERO BRANCH CONTROLLER, MARTÍNEZ N 288.60 Leukocytosis 05/27/2011 MARIEE CASHERO BRANCH CONTROLLER, MARTÍNEZ N V58.69 MEDICATION HIGH RISK 05/27/2011 JJ BRANCH CONTROLLER, ANNEL FRANCES 272.1 HYPERTRIGLYCERIDEMIA 05/27/2011 JJ BRANCH CONTROLLER, ANNEL FRANCES 288.60 Leukocytosis 05/27/2011 JJ BRANCH CONTROLLER ANNEL FRANCES V58.69 MEDICATION HIGH RISK 05/27/2011 LAURA BENNETT MD 272.1 HYPERTRIGLYCERIDEMIA 05/27/2011 LAURA BENNETT MD 288.60 Leukocytosis 05/27/2011 LAURA BENNETT MD V58.69 MEDICATION HIGH RISK 05/27/2011 MADL BRANCH CONTROLLER, DION L 272.1 HYPERTRIGLYCERIDEMIA 05/27/2011 MADL BRANCH CONTROLLER, DION L 288.60 Leukocytosis 05/27/2011 MADL BRANCH CONTROLLER, DION L V58.69 MEDICATION HIGH RISK 05/27/2011 LAURA BENNETT MD 272.1 HYPERTRIGLYCERIDEMIA 05/27/2011 LAURA BENNETT MD 288.60 Leukocytosis 05/27/2011 LARUA BENNETT MD V58.69 MEDICATION HIGH RISK 05/27/2011 MADL BRANCH CONTROLLER, DION L 272.1 HYPERTRIGLYCERIDEMIA 05/27/2011 MADL BRANCH CONTROLLER, DION L 288.60 Leukocytosis 05/27/2011 MADL BRANCH CONTROLLER, DION L V58.69 MEDICATION HIGH RISK 05/27/2011 LOCKETT DO, SHANNA K 272.1 HYPERTRIGLYCERIDEMIA 05/27/2011 LOCKETT DO, SHANNA K 288.60 Leukocytosis 05/27/2011 LOCKETT DO, SHANNA K V58.69 MEDICATION HIGH RISK 05/27/2011 LOCKETT DO, SHANNA K 272.1 HYPERTRIGLYCERIDEMIA 05/27/2011 LOCKETT DO, SHANNA K 288.60 Leukocytosis 05/27/2011 LOCKETT DO, SHANNA K V58.69 MEDICATION HIGH RISK 05/27/2011 MADL BRANCH CONTROLLER, DION L 272.1 HYPERTRIGLYCERIDEMIA 05/27/2011 MADL BRANCH CONTROLLER, DION L 288.60 Leukocytosis 05/27/2011 MADL BRANCH CONTROLLER, DION L V58.69 MEDICATION HIGH RISK 05/27/2011 MADL BRANCH CONTROLLER, DION L 272.1 HYPERTRIGLYCERIDEMIA 05/27/2011 MADL BRANCH CONTROLLER, DION L 288.60 Leukocytosis 05/27/2011 MADL BRANCH CONTROLLER, DION L V58.69 MEDICATION HIGH RISK 05/27/2011 MADL BRANCH CONTROLLER, DION L 272.1 HYPERTRIGLYCERIDEMIA 05/27/2011 MADL BRANCH CONTROLLER, DION L 288.60 Leukocytosis 05/27/2011 MADL BRANCH CONTROLLER, DION L V58.69 MEDICATION HIGH RISK 05/27/2011 LOCKETT DO, SHANNA K 272.1 HYPERTRIGLYCERIDEMIA 05/27/2011 LOCKETT DO, SHANNA K 288.60 Leukocytosis 05/27/2011 LOCKETT DO, SHANNA K V58.69 MEDICATION HIGH RISK 05/27/2011 MADL BRANCH CONTROLLER, DION L 272.1 HYPERTRIGLYCERIDEMIA 05/27/2011 MADL BRANCH CONTROLLER, DION L 288.60 Leukocytosis 05/27/2011 MADL BRANCH CONTROLLER, DION L V58.69 MEDICATION HIGH RISK 05/27/2011 MADL BRANCH CONTROLLER, DION L 272.1 HYPERTRIGLYCERIDEMIA 05/27/2011 MADL BRANCH CONTROLLER, DION L 288.60 Leukocytosis 05/27/2011 MADL BRANCH CONTROLLER, DION L V58.69 MEDICATION HIGH RISK 05/27/2011 MADL BRANCH CONTROLLER, DION L 272.1 HYPERTRIGLYCERIDEMIA 05/27/2011 MADL BRANCH CONTROLLER, DION L 288.60 Leukocytosis 05/27/2011 MADL BRANCH CONTROLLER, DION L V58.69 MEDICATION HIGH RISK 05/27/2011 MADL BRANCH CONTROLLER, DION L 272.1 HYPERTRIGLYCERIDEMIA 05/27/2011 MADL BRANCH CONTROLLER, DION L 288.60 Leukocytosis 05/27/2011 MADL BRANCH CONTROLLER, DION L V58.69 MEDICATION HIGH RISK 05/27/2011 MADL BRANCH CONTROLLER, DION L 272.1 HYPERTRIGLYCERIDEMIA 05/27/2011 MADL BRANCH CONTROLLER, DION L 288.60 Leukocytosis 05/27/2011 MADL BRANCH CONTROLLER, DION L V58.69 MEDICATION HIGH RISK 05/27/2011 MADL BRANCH CONTROLLER, DION L 272.1 HYPERTRIGLYCERIDEMIA 05/27/2011 MADL BRANCH CONTROLLER, DION L 288.60 Leukocytosis 05/27/2011 MADL BRANCH CONTROLLER, DION L V58.69 MEDICATION HIGH RISK 05/27/2011 MADL BRANCH CONTROLLER, DION L 272.1 HYPERTRIGLYCERIDEMIA 05/27/2011 MADL BRANCH CONTROLLER, DION L 288.60 [facility]27[facility] V58.69 MEDICATION HIGH RISK 05/27/2011 MADL BRANCH CONTROLLER, DION L 272.1 HYPERTRIGLYCERIDEMIA 05/27/2011 MADL BRANCH CONTROLLER, DION L 288.60 Leukocytosis 05/27/2011 MADL BRANCH CONTROLLER, DION L V58.69 MEDICATION HIGH RISK 05/27/2011 MADL BRANCH CONTROLLER, DION L 272.1 HYPERTRIGLYCERIDEMIA 05/27/2011 [facility] BRANCH CONTROLLER, DION L 288.60 Leukocytosis 05/27/2011 MAD BRANCH CONTROLLER, DION L V58.69 MEDICATION HIGH RISK 05/27/2011 LOCKETT DO, SHANNA K 272.1 HYPERTRIGLYCERIDEMIA 05/27/2011 LOCKETT DO, SHANNA K 288.60 Leukocytosis 05/27/2011 LOCKETT DO, SHANNA K V58.69 MEDICATION HIGH RISK 05/27/2011 CASTELLANO BRANCH CONTROLLER, BARRY R 272.1 HYPERTRIGLYCERIDEMIA 05/27/2011 CASTELLANO BRANCH CONTROLLER, BARRY R 288.60 Leukocytosis 05/27/2011 CASTELLANO BRANCH CONTROLLER, BARRY R V58.69 MEDICATION HIGH RISK 05/27/2011 LOCKETT DO, SHANNA K 272.1 HYPERTRIGLYCERIDEMIA 05/27/2011 LOCKETT DO, SHANNA K 288.60 Leukocytosis 05/27/2011 LEVY CARRANZA, SHANNA Mcmanus V58.69 MEDICATION HIGH RISK 06/05/2011 486 Pneumonia Unspecified 06/05/2011 YRN MOREIRA, DON 486 Pneumonia Unspecified 06/05/2011 АННА BRANCH CONTROLLER, ANNEL FRACNES 486 Pneumonia Unspecified 06/05/2011 LEVY CARRANZA, SHANNA K 486 Pneumonia Unspecified 06/05/2011 SABRINA MOREIRA, LAURA 486 Pneumonia Unspecified 06/05/2011 LEVY CARRANZA, SHANNA K 486 Pneumonia Unspecified 06/05/2011 486 Pneumonia Unspecified 06/05/2011 486 Pneumonia Unspecified 06/05/2011 NÉSTOR MOREIRA, BINDU M 486 Pneumonia Unspecified 06/05/2011 486 Pneumonia Unspecified 06/05/2011 486 Pneumonia Unspecified 06/05/2011 486 Pneumonia Unspecified 06/05/2011 486 Pneumonia Unspecified 06/05/2011 486 Pneumonia Unspecified 06/05/2011 486 Pneumonia Unspecified 06/05/2011 486 Pneumonia Unspecified 06/05/2011 NÉSTOR MOREIRA, BINDU M 486 Pneumonia Unspecified 06/05/2011 NÉSTOR MOREIRA, BINDU M 486 Pneumonia Unspecified 06/05/2011 LEVY CARRANZA, SHANNA K 486 Pneumonia Unspecified 06/05/2011 NÉSTOR MOREIRA, BINDU M 486 Pneumonia Unspecified 06/05/2011 SHELBI DEL TORO, CARLINE S 486 Pneumonia Unspecified 06/05/2011 SHELBI DEL TORO, CARLINE S 486 Pneumonia Unspecified 06/05/2011 SABRINA MOREIRA, LAURA 486 Pneumonia Unspecified 06/05/2011 LOBITO MOREIRA, ELIZABETH Hale 486 Pneumonia Unspecified 06/05/2011 SABRINA MOREIRA, LAURA 486 Pneumonia Unspecified 06/05/2011 LEVY CARRANZA, SHANNA K 486 Pneumonia Unspecified 06/05/2011 JAYLENE PURDY BRANCH CONTROLLER, MARTÍNEZ N 486 Pneumonia Unspecified 06/05/2011 NÉSTOR MOREIRA, BINDU M 486 Pneumonia Unspecified 06/05/2011 JAYLENE PURDY APRN, MARTÍNEZ N 486 Pneumonia Unspecified 06/05/2011 АННА DEL TORO, ANNEL FRANCES 486 Pneumonia Unspecified 06/05/2011 SABRINA MOREIRA, LAURA 486 Pneumonia Unspecified 06/05/2011 BRITTANY DEL TORO, DION L 486 Pneumonia Unspecified 06/05/2011 SABRINA MOREIRA, LAURA 486 Pneumonia Unspecified 06/05/2011 MADL BRANCH CONTROLLER, DION L 486 Pneumonia Unspecified 06/05/2011 LOCKETT DO, SHANNA K 486 Pneumonia Unspecified 06/05/2011 LOCKETT DO, SHANNA K 486 Pneumonia Unspecified 06/05/2011 MADL BRANCH CONTROLLER, DION L 486 Pneumonia Unspecified 06/05/2011 MADL BRANCH CONTROLLER, DION L 486 Pneumonia Unspecified 06/05/2011 MADL BRANCH CONTROLLER, DION L 486 Pneumonia Unspecified 06/05/2011 LOCKETT DO, SHANNA K 486 Pneumonia Unspecified 06/05/2011 MADL BRANCH CONTROLLER, DION L 486 Pneumonia Unspecified 06/05/2011 MADL BRANCH CONTROLLER, DION L 486 Pneumonia Unspecified 06/05/2011 MADL BRANCH CONTROLLER, DION L 486 Pneumonia Unspecified 06/05/2011 MADL BRANCH CONTROLLER, DION L 486 Pneumonia Unspecified 06/05/2011 MADL BRANCH CONTROLLER, DION L 486 Pneumonia Unspecified 06/05/2011 MADL BRANCH CONTROLLER, DION L 486 Pneumonia Unspecified 06/05/2011 MADL BRANCH CONTROLLER, DION L 486 Pneumonia Unspecified 06/05/2011 MADL BRANCH CONTROLLER, DION L 486 Pneumonia Unspecified 06/05/2011 MADL BRANCH CONTROLLER, DION L 486 Pneumonia Unspecified 06/05/2011 LOCKETT DO, SHANNA K 486 Pneumonia Unspecified 06/05/2011 CASTELLANO BRANCH CONTROLLER, BARRY R 486 Pneumonia Unspecified 06/05/2011 LOCKETT DO, SHANNA K 486 Pneumonia Unspecified 06/10/2011 V72.31 Supervisor Soldering Exam, Routine 06/10/2011 V73.81 Hpv Screening 06/10/2011 V76.2 Cervical Cancer Screening (pap Smear) 06/10/2011 DON POOL MD V72.31 Supervisor Soldering Exam, Routine 06/10/2011 DON POOL MD V73.81 Hpv Screening 06/10/2011 DON POOL MD V76.2 Cervical Cancer Screening (pap Smear) 06/10/2011 ANNEL JJ APRN V72.31 Supervisor Soldering Exam, Routine 06/10/2011 ANNEL JJ APRN V73.81 Hpv Screening 06/10/2011 ANNEL JJ APRN V76.2 Cervical Cancer Screening (pap Smear) 06/10/2011 SHANNA LOCKETT DO V72.31 Supervisor Soldering Exam, Routine 06/10/2011 SHANNA LOCKETT DO V73.81 Hpv Screening 06/10/2011 SHANNA LOCKETT DO V76.2 Cervical Cancer Screening (pap Smear) 06/10/2011 LAURA BENNETT MD V72.31 Supervisor Soldering Exam, Routine 06/10/2011 LAURA BENNETT MD V73.81 Hpv Screening 06/10/2011 LAURA BENNETT MD V76.2 Cervical Cancer Screening (pap Smear) 06/10/2011 SHANNA LOCKETT DO V72.31 Supervisor Soldering Exam, Routine 06/10/2011 SHANNA LOCKETT DO V73.81 Hpv Screening 06/10/2011 SHANNA LOCKETT DO V76.2 Cervical Cancer Screening (pap Smear) 06/10/2011 V72.31 Supervisor Soldering Exam, Routine 06/10/2011 V73.81 Hpv Screening 06/10/2011 V76.2 Cervical Cancer Screening (pap Smear) 06/10/2011 V72.31 Supervisor Soldering Exam, Routine 06/10/2011 V73.81 Hpv Screening 06/10/2011 V76.2 Cervical Cancer Screening (pap Smear) 06/10/2011 BINDU PALM MD V72.31 Supervisor Soldering Exam, Routine 06/10/2011 BINDU PALM MD V73.81 Hpv Screening 06/10/2011 BINDU PALM MD V76.2 Cervical Cancer Screening (pap Smear) 06/10/2011 V72.31 Supervisor Soldering Exam, Routine 06/10/2011 V73.81 Hpv Screening 06/10/2011 V76.2 Cervical Cancer Screening (pap Smear) 06/10/2011 V72.31 Supervisor Soldering Exam, Routine 06/10/2011 V73.81 Hpv Screening 06/10/2011 V76.2 Cervical Cancer Screening (pap Smear) 06/10/2011 V72.31 Supervisor Soldering Exam, Routine 06/10/2011 V73.81 Hpv Screening 06/10/2011 V76.2 Cervical Cancer Screening (pap Smear) 06/10/2011 V72.31 Supervisor Soldering Exam, Routine 06/10/2011 V73.81 Hpv Screening 06/10/2011 V76.2 Cervical Cancer Screening (pap Smear) 06/10/2011 V72.31 Supervisor Soldering Exam, Routine 06/10/2011 V73.81 Hpv Screening 06/10/2011 V76.2 Cervical Cancer Screening (pap Smear) 06/10/2011 V72.31 Supervisor Soldering Exam, Routine 06/10/2011 V73.81 Hpv Screening 06/10/2011 V76.2 Cervical Cancer Screening (pap Smear) 06/10/2011 V72.31 Supervisor Soldering Exam, Routine 06/10/2011 V73.81 Hpv Screening 06/10/2011 V76.2 Cervical Cancer Screening (pap Smear) 06/10/2011 BINDU PALM MD V72.31 Supervisor Soldering Exam, Routine 06/10/2011 BINDU PALM MD V73.81 Hpv Screening 06/10/2011 BINDU PLAM MD V76.2 Cervical Cancer Screening (pap Smear) 06/10/2011 BINDU PALM MD V72.31 Supervisor Soldering Exam, Routine 06/10/2011 BINDU PALM MD V73.81 Hpv Screening 06/10/2011 BINDU PALM MD V76.2 Cervical Cancer Screening (pap Smear) 06/10/2011 GRANT LOCKETT DOA K V72.31 Supervisor Soldering Exam, Routine 06/10/2011 GRANT LOCKETT DOA K V73.81 Hpv Screening 06/10/2011 GRANT LOCKETT DOA K V76.2 Cervical Cancer Screening (pap Smear) 06/10/2011 BINDU PALM MD V72.31 Supervisor Soldering Exam, Routine 06/10/2011 BINDU PALM MD V73.81 Hpv Screening 06/10/2011 BINDU PALM MD V76.2 Cervical Cancer Screening (pap Smear) 06/10/2011 LOWELL MARIO APRNNDA S V72.31 Supervisor Soldering Exam, Routine 06/10/2011 SHELBI BRANCH CONTROLLER, CARLINE S V73.81 Hpv Screening 06/10/2011 SHELBI BRANCH CONTROLLER, CARLINE S V76.2 Cervical Cancer Screening (pap Smear) 06/10/2011 SHELBI BRANCH CONTROLLER, CARLINE S V72.31 Supervisor Soldering Exam, Routine 06/10/2011 SHELBI BRANCH CONTROLLER, CARLINE S V73.81 Hpv Screening 06/10/2011 SHELBI DEL TORO CARLINE S V76.2 Cervical Cancer Screening (pap Smear) 06/10/2011 LAURA BENNETT MD V72.31 Supervisor Soldering Exam, Routine 06/10/2011 LAURA BENNETT MD V73.81 Hpv Screening 06/10/2011 LAURA BENNETT MD V76.2 Cervical Cancer Screening (pap Smear) 06/10/2011 ELIZABETH ROBIN MD V72.31 Supervisor Soldering Exam, Routine 06/10/2011 ELIZABETH ROBIN MD V73.81 Hpv Screening 06/10/2011 ELIZABETH ROBIN MD V76.2 Cervical Cancer Screening (pap Smear) 06/10/2011 LAURA BENNETT MD V72.31 Supervisor Soldering Exam, Routine 06/10/2011 LAURA BENNETT MD V73.81 Hpv Screening 06/10/2011 LAURA BENNETT MD V76.2 Cervical Cancer Screening (pap Smear) 06/10/2011 SHANNA LOCKETT DO V72.31 Supervisor Soldering Exam, Routine 06/10/2011 SHANNA LOCKETT DO V73.81 Hpv Screening 06/10/2011 SHANNA LOCKETT DO V76.2 Cervical Cancer Screening (pap Smear) 06/10/2011 MARTÍNEZ MARY APRN N V72.31 Supervisor Soldering Exam, Routine 06/10/2011 MARTÍNEZ MARY APRN N V73.81 Hpv Screening 06/10/2011 MARTÍNEZ MARY APRN N V76.2 Cervical Cancer Screening (pap Smear) 06/10/2011 BINDU PALM MD V72.31 Supervisor Soldering Exam, Routine 06/10/2011 BINDU PALM MD V73.81 Hpv Screening 06/10/2011 BINDU PALM MD V76.2 Cervical Cancer Screening (pap Smear) 06/10/2011 MARTÍNEZ MARY APRN N V72.31 Supervisor Soldering Exam, Routine 06/10/2011 MARTÍNEZ MARY APRN N V73.81 Hpv Screening 06/10/2011 MARTÍNEZ MARY APRN N V76.2 Cervical Cancer Screening (pap Smear) 06/10/2011 ANNEL JJ APRN V72.31 Supervisor Soldering Exam, Routine 06/10/2011 ANNEL JJ APRN V73.81 Hpv Screening 06/10/2011 ANNEL JJ APRN V76.2 Cervical Cancer Screening (pap Smear) 06/10/2011 LAURA BENNETT MD V72.31 Supervisor Soldering Exam, Routine 06/10/2011 LAURA BENNETT MD V73.81 Hpv Screening 06/10/2011 LAURA BENNETT MD V76.2 Cervical Cancer Screening (pap Smear) 06/10/2011 MADL BRANCH CONTROLLER, DION L V72.31 Supervisor Soldering Exam, Routine 06/10/2011 MADL BRANCH CONTROLLER, DION L V73.81 Hpv Screening 06/10/2011 MADL BRANCH CONTROLLER, DION L V76.2 Cervical Cancer Screening (pap Smear) 06/10/2011 LAURA BENNETT MD V72.31 Supervisor Soldering Exam, Routine 06/10/2011 LAURA BENNETT MD V73.81 Hpv Screening 06/10/2011 LAURA BENNETT MD V76.2 Cervical Cancer Screening (pap Smear) 06/10/2011 MADL BRANCH CONTROLLER, DION L V72.31 Supervisor Soldering Exam, Routine 06/10/2011 MADL BRANCH CONTROLLER, DION L V73.81 Hpv Screening 06/10/2011 MADL BRANCH CONTROLLER, DION L V76.2 Cervical Cancer Screening (pap Smear) 06/10/2011 SHANNA LOCKETT DO V72.31 Supervisor Soldering Exam, Routine 06/10/2011 SHANNA LOCKETT DO V73.81 Hpv Screening 06/10/2011 SHANNA LOCKETT DO V76.2 Cervical Cancer Screening (pap Smear) 06/10/2011 SHANNA LOCKETT DO K V72.31 Supervisor Soldering Exam, Routine 06/10/2011 SHANNA LOCKETT DO V73.81 Hpv Screening 06/10/2011 SHANNA LOCKETT DO V76.2 Cervical Cancer Screening (pap Smear) 06/10/2011 MADL BRANCH CONTROLLER, DION L V72.31 Supervisor Soldering Exam, Routine 06/10/2011 MADL BRANCH CONTROLLER, DION L V73.81 Hpv Screening 06/10/2011 MADL BRANCH CONTROLLER, DION L V76.2 Cervical Cancer Screening (pap Smear) 06/10/2011 MADL BRANCH CONTROLLER, DION L V72.31 Supervisor Soldering Exam, Routine 06/10/2011 MADL BRANCH CONTROLLER, DION L V73.81 Hpv Screening 06/10/2011 MADL BRANCH CONTROLLER, DION L V76.2 Cervical Cancer Screening (pap Smear) 06/10/2011 MADL BRANCH CONTROLLER, DION L V72.31 Supervisor Soldering Exam, Routine 06/10/2011 MADL BRANCH CONTROLLER, DION L V73.81 Hpv Screening 06/10/2011 MADL BRANCH CONTROLLER, DION L V76.2 Cervical Cancer Screening (pap Smear) 06/10/2011 LOCKETT DO, SHANNA K V72.31 Supervisor Soldering Exam, Routine 06/10/2011 LOCKETT DO, SHANNA K V73.81 Hpv Screening 06/10/2011 LOCKETT DO, SHANNA K V76.2 Cervical Cancer Screening (pap Smear) 06/10/2011 MADL BRANCH CONTROLLER, DION L V72.31 Supervisor Soldering Exam, Routine 06/10/2011 MADL BRANCH CONTROLLER, DION L V73.81 Hpv Screening 06/10/2011 MADL BRANCH CONTROLLER, DION L V76.2 Cervical Cancer Screening (pap Smear) 06/10/2011 MADL BRANCH CONTROLLER, DION L V72.31 Supervisor Soldering Exam, Routine 06/10/2011 MADL BRANCH CONTROLLER, DION L V73.81 Hpv Screening 06/10/2011 MADL BRANCH CONTROLLER, DION L V76.2 Cervical Cancer Screening (pap Smear) 06/10/2011 MADL BRANCH CONTROLLER, DION L V72.31 Supervisor Soldering Exam, Routine 06/10/2011 MADL BRANCH CONTROLLER, DION L V73.81 Hpv Screening 06/10/2011 MADL BRANCH CONTROLLER, DION L V76.2 Cervical Cancer Screening (pap Smear) 06/10/2011 MADL BRANCH CONTROLLER, DION L V72.31 Supervisor Soldering Exam, Routine 06/10/2011 MADL BRANCH CONTROLLER, DION L V73.81 Hpv Screening 06/10/2011 MADL BRANCH CONTROLLER, DION L V76.2 Cervical Cancer Screening (pap Smear) 06/10/2011 MADL BRANCH CONTROLLER, DINO L V72.31 Supervisor Soldering Exam, Routine 06/10/2011 MADL BRANCH CONTROLLER, DION L V73.81 Hpv Screening 06/10/2011 MADL BRANCH CONTROLLER, DION L V76.2 Cervical Cancer Screening (pap Smear) 06/10/2011 MADL BRANCH CONTROLLER, DION L V72.31 Supervisor Soldering Exam, Routine 06/10/2011 MADL BRANCH CONTROLLER, DION L V73.81 Hpv Screening 06/10/2011 MADL BRANCH CONTROLLER, DION L V76.2 Cervical Cancer Screening (pap Smear) 06/10/2011 MADL BRANCH CONTROLLER, DION L V72.31 Supervisor Soldering Exam, Routine 06/10/2011 MADL BRANCH CONTROLLER, DION L V73.81 Hpv Screening 06/10/2011 MADL BRANCH CONTROLLER, DION L V76.2 Cervical Cancer Screening (pap Smear) 06/10/2011 MADL BRANCH CONTROLLER, DION L V72.31 Supervisor Soldering Exam, Routine 06/10/2011 MADL BRANCH CONTROLLER, DION L V73.81 Hpv Screening 06/10/2011 MADL BRANCH CONTROLLER, DION L V76.2 Cervical Cancer Screening (pap Smear) 06/10/2011 MADL BRANCH CONTROLLER, DION L V72.31 Supervisor Soldering Exam, Routine 06/10/2011 MADL BRANCH CONTROLLER, DION L V73.81 Hpv Screening 06/10/2011 MADL BRANCH CONTROLLER, DION L V76.2 Cervical Cancer Screening (pap Smear) 06/10/2011 SHANNA LOCKETT DO K V72.31 Supervisor Soldering Exam, Routine 06/10/2011 GRANT LOCKETT DOA K V73.81 Hpv Screening 06/10/2011 LOCKETT GRANT CARRANZAA K V76.2 Cervical Cancer Screening (pap Smear) 06/10/2011 BARRY CASTELLANO APRN R V72.31 Supervisor Soldering Exam, Routine 06/10/2011 BARRY CASTELLANO APRN R V73.81 Hpv Screening 06/10/2011 BARRY CASTELLANO APRN R V76.2 Cervical Cancer Screening (pap Smear) 06/10/2011 GRANT LOCKETT DOA K V72.31 Supervisor Soldering Exam, Routine 06/10/2011 GRANT LOCKETT DOA K V73.81 Hpv Screening 06/10/2011 LOCKETT GRANT CARRANZAA K V76.2 Cervical Cancer Screening (pap Smear) 07/21/2011 079.4 HUMAN PAPILLOMA VIRUS INFECTION 07/21/2011 795.01 Cerv Pap Smear (+) Atyp Squamous Cells Undetermined Signif 07/21/2011 YRN MOREIRA, DON 079.4 HUMAN PAPILLOMA VIRUS INFECTION 07/21/2011 YRN MOREIRA, DON 795.01 Cerv Pap Smear (+) Atyp Squamous Cells Undetermined Signif 07/21/2011 JJYVES DE LUNAAlexia ANNEL FRANCES 079.4 HUMAN PAPILLOMA VIRUS INFECTION 07/21/2011 АННА DE LUNAAlexia ANNEL FRANCES 795.01 Cerv Pap Smear (+) Atyp Squamous Cells Undetermined Signif 07/21/2011 SHANNA LOCKETT DO 079.4 HUMAN PAPILLOMA VIRUS INFECTION 07/21/2011 SHANNA LOCKETT DO 795.01 Cerv Pap Smear (+) Atyp Squamous Cells Undetermined Signif 07/21/2011 LAURA BENNETT MD 079.4 HUMAN PAPILLOMA VIRUS INFECTION 07/21/2011 LAURA BENNETT MD 795.01 Cerv Pap Smear (+) Atyp Squamous Cells Undetermined Signif 07/21/2011 SHANNA LOCKETT DO 079.4 HUMAN PAPILLOMA VIRUS INFECTION 07/21/2011 SHANNA LOCKETT DO 795.01 Cerv Pap Smear (+) Atyp Squamous Cells Undetermined Signif 07/21/2011 079.4 HUMAN PAPILLOMA VIRUS INFECTION 07/21/2011 795.01 Cerv Pap Smear (+) Atyp Squamous Cells Undetermined Signif 07/21/2011 079.4 HUMAN PAPILLOMA VIRUS INFECTION 07/21/2011 795.01 Cerv Pap Smear (+) Atyp Squamous Cells Undetermined Signif 07/21/2011 BINDU PALM MD 079.4 HUMAN PAPILLOMA VIRUS INFECTION 07/21/2011 BINDU PALM MD 795.01 Cerv Pap Smear (+) Atyp Squamous Cells Undetermined Signif 07/21/2011 079.4 HUMAN PAPILLOMA VIRUS INFECTION 07/21/2011 795.01 Cerv Pap Smear (+) Atyp Squamous Cells Undetermined Signif 07/21/2011 079.4 HUMAN PAPILLOMA VIRUS INFECTION 07/21/2011 795.01 Cerv Pap Smear (+) Atyp Squamous Cells Undetermined Signif 07/21/2011 079.4 HUMAN PAPILLOMA VIRUS INFECTION 07/21/2011 795.01 Cerv Pap Smear (+) Atyp Squamous Cells Undetermined Signif 07/21/2011 079.4 HUMAN PAPILLOMA VIRUS INFECTION 07/21/2011 795.01 Cerv Pap Smear (+) Atyp Squamous Cells Undetermined Signif 07/21/2011 079.4 HUMAN PAPILLOMA VIRUS INFECTION 07/21/2011 795.01 Cerv Pap Smear (+) Atyp Squamous Cells Undetermined Signif 07/21/2011 079.4 HUMAN PAPILLOMA VIRUS INFECTION 07/21/2011 795.01 Cerv Pap Smear (+) Atyp Squamous Cells Undetermined Signif 07/21/2011 079.4 HUMAN PAPILLOMA VIRUS INFECTION 07/21/2011 795.01 Cerv Pap Smear (+) Atyp Squamous Cells Undetermined Signif 07/21/2011 BINDU PALM MD 079.4 HUMAN PAPILLOMA VIRUS INFECTION 07/21/2011 BINDU PALM MD 795.01 Cerv Pap Smear (+) Atyp Squamous Cells Undetermined Signif 07/21/2011 BINDU PALM MD 079.4 HUMAN PAPILLOMA VIRUS INFECTION 07/21/2011 BINDU PALM MD 795.01 Cerv Pap Smear (+) Atyp Squamous Cells Undetermined Signif 07/21/2011 SHANNA LOCKETT DO K 079.4 HUMAN PAPILLOMA VIRUS INFECTION 07/21/2011 LOCKETT SHANNA CARRANZA 795.01 Cerv Pap Smear (+) Atyp Squamous Cells Undetermined Signif 07/21/2011 BINDU PALM MD 079.4 HUMAN PAPILLOMA VIRUS INFECTION 07/21/2011 BINDU PALM MD 795.01 Cerv Pap Smear (+) Atyp Squamous Cells Undetermined Signif 07/21/2011 CARLINE MARIO APRN S 079.4 HUMAN PAPILLOMA VIRUS INFECTION 07/21/2011 LOWELL MARIO APRNNDA S 795.01 Cerv Pap Smear (+) Atyp Squamous Cells Undetermined Signif 07/21/2011 CARLINE MARIO APRN S 079.4 HUMAN PAPILLOMA VIRUS INFECTION 07/21/2011 LOWELL MARIO APRNNDA S 795.01 Cerv Pap Smear (+) Atyp Squamous Cells Undetermined Signif 07/21/2011 LAURA BENNETT MD 079.4 HUMAN PAPILLOMA VIRUS INFECTION 07/21/2011 LAURA BENNETT MD 795.01 Cerv Pap Smear (+) Atyp Squamous Cells Undetermined Signif 07/21/2011 ELIZABETH ROBIN MD 079.4 HUMAN PAPILLOMA VIRUS INFECTION 07/21/2011 ELIZABETH ROBIN MD 795.01 Cerv Pap Smear (+) Atyp Squamous Cells Undetermined Signif 07/21/2011 LAURA BENNETT MD 079.4 HUMAN PAPILLOMA VIRUS INFECTION 07/21/2011 LAURA BENNETT MD 795.01 Cerv Pap Smear (+) Atyp Squamous Cells Undetermined Signif 07/21/2011 SHANNA LOCKETT DO K 079.4 HUMAN PAPILLOMA VIRUS INFECTION 07/21/2011 LEVY CARRANZA, SHANNA K 795.01 Cerv Pap Smear (+) Atyp Squamous Cells Undetermined Signif 07/21/2011 MARIEE GRISELDAUMM DEL TORO, MARTÍNEZ N 079.4 HUMAN PAPILLOMA VIRUS INFECTION 07/21/2011 MARIEE GRISELDAERO BRANCH CONTROLLER, MARTÍNEZ N 795.01 Cerv Pap Smear (+) Atyp Squamous Cells Undetermined Signif 07/21/2011 BINDU PALM MD 079.4 HUMAN PAPILLOMA VIRUS INFECTION 07/21/2011 BINDU PALM MD 795.01 Cerv Pap Smear (+) Atyp Squamous Cells Undetermined Signif 07/21/2011 MARIEE GRISELDAMARTÍNEZ SALOMON APRN N 079.4 HUMAN PAPILLOMA VIRUS INFECTION 07/21/2011 MARIEEMELANIE VILLALOBOSUMM DEL TORO, MARTÍNEZ N 795.01 Cerv Pap Smear (+) Atyp Squamous Cells Undetermined Signif 07/21/2011 АННА DEL TORO ANNEL YVROSE 079.4 HUMAN PAPILLOMA VIRUS INFECTION 07/21/2011 АННА DEL TORO ANNEL GOLDSTEINH 795.01 Cerv Pap Smear (+) Atyp Squamous Cells Undetermined Signif 07/21/2011 LAURA BENNETT MD 079.4 HUMAN PAPILLOMA VIRUS INFECTION 07/21/2011 LAURA BENNETT MD 795.01 Cerv Pap Smear (+) Atyp Squamous Cells Undetermined Signif 07/21/2011 DION SOTO APRN 079.4 HUMAN PAPILLOMA VIRUS INFECTION 07/21/2011 DION SOTO APRN L 795.01 Cerv Pap Smear (+) Atyp Squamous Cells Undetermined Signif 07/21/2011 LAURA BENNETT MD 079.4 HUMAN PAPILLOMA VIRUS INFECTION 07/21/2011 LAURA BENNETT MD 795.01 Cerv Pap Smear (+) Atyp Squamous Cells Undetermined Signif 07/21/2011 DION SOTO APRN L 079.4 HUMAN PAPILLOMA VIRUS INFECTION 07/21/2011 DION SOTO APRN L 795.01 Cerv Pap Smear (+) Atyp Squamous Cells Undetermined Signif 07/21/2011 LEVY CARRANZA SHANNA K 079.4 HUMAN PAPILLOMA VIRUS INFECTION 07/21/2011 LEVY CARRANZA SHANNA K 795.01 Cerv Pap Smear (+) Atyp Squamous Cells Undetermined Signif 07/21/2011 LEVY CARRANZA SHANNA K 079.4 HUMAN PAPILLOMA VIRUS INFECTION 07/21/2011 LEVY CARRANZA SHANNA K 795.01 Cerv Pap Smear (+) Atyp Squamous Cells Undetermined Signif 07/21/2011 MADL BRANCH CONTROLLER, DION L 079.4 HUMAN PAPILLOMA VIRUS INFECTION 07/21/2011 MADL BRANCH CONTROLLER, DION L 795.01 Cerv Pap Smear (+) Atyp Squamous Cells Undetermined Signif 07/21/2011 MADL BRANCH CONTROLLER, DION L 079.4 HUMAN PAPILLOMA VIRUS INFECTION 07/21/2011 MADL BRANCH CONTROLLER, DION L 795.01 Cerv Pap Smear (+) Atyp Squamous Cells Undetermined Signif 07/21/2011 MADL BRANCH CONTROLLER, DION L 079.4 HUMAN PAPILLOMA VIRUS INFECTION 07/21/2011 MADL BRANCH CONTROLLER, DION L 795.01 Cerv Pap Smear (+) Atyp Squamous Cells Undetermined Signif 07/21/2011 LEVY CARRANZA SHANNA K 079.4 HUMAN PAPILLOMA VIRUS INFECTION 07/21/2011 LEVY CARRANZA SHANNA K 795.01 Cerv Pap Smear (+) Atyp Squamous Cells Undetermined Signif 07/21/2011 MADL BRANCH CONTROLLER, DION L 079.4 HUMAN PAPILLOMA VIRUS INFECTION 07/21/2011 MADL BRANCH CONTROLLER, DION L 795.01 Cerv Pap Smear (+) Atyp Squamous Cells Undetermined Signif 07/21/2011 MADL BRANCH CONTROLLER, DION L 079.4 HUMAN PAPILLOMA VIRUS INFECTION 07/21/2011 MADL BRANCH CONTROLLER, DION L 795.01 Cerv Pap Smear (+) Atyp Squamous Cells Undetermined Signif 07/21/2011 MADL BRANCH CONTROLLER, DION L 079.4 HUMAN PAPILLOMA VIRUS INFECTION 07/21/2011 MADL BRANCH CONTROLLER, DION L 795.01 Cerv Pap Smear (+) Atyp Squamous Cells Undetermined Signif 07/21/2011 MADL BRANCH CONTROLLER, DION L 079.4 HUMAN PAPILLOMA VIRUS INFECTION 07/21/2011 BRITTANY BRANCH CONTROLLER, DION L 795.01 Cerv Pap Smear (+) Atyp Squamous Cells Undetermined Signif 07/21/2011 LAURE SOTO APRNA L 079.4 HUMAN PAPILLOMA VIRUS INFECTION 07/21/2011 BRITTANY BRANCH CONTROLLER, DION L 795.01 Cerv Pap Smear (+) Atyp Squamous Cells Undetermined Signif 07/21/2011 LAURE SOTO APRNA L 079.4 HUMAN PAPILLOMA VIRUS INFECTION 07/21/2011 BRITTANY DEL TORO, DION L 795.01 Cerv Pap Smear (+) Atyp Squamous Cells Undetermined Signif 07/21/2011 LAURE SOTO APRNA L 079.4 HUMAN PAPILLOMA VIRUS INFECTION 07/21/2011 BRITTANY BRANCH CONTROLLER, DION L 795.01 Cerv Pap Smear (+) Atyp Squamous Cells Undetermined Signif 07/21/2011 LAURE SOTO APRNA L 079.4 HUMAN PAPILLOMA VIRUS INFECTION 07/21/2011 BIRDIE KATEY, DION L 795.01 Cerv Pap Smear (+) Atyp Squamous Cells Undetermined Signif 07/21/2011 BRITTANY DEL TORO, DION L 079.4 HUMAN PAPILLOMA VIRUS INFECTION 07/21/2011 BRITTANY DEL TORO, DION L 795.01 Cerv Pap Smear (+) Atyp Squamous Cells Undetermined Signif 07/21/2011 SHANNA LOCKETT DO K 079.4 HUMAN PAPILLOMA VIRUS INFECTION 07/21/2011 GRANT LOCKETT DOA K 795.01 Cerv Pap Smear (+) Atyp Squamous Cells Undetermined Signif 07/21/2011 BARRY CASTELLANO APRN R 079.4 HUMAN PAPILLOMA VIRUS INFECTION 07/21/2011 RENO CASTELLANO APRNIA R 795.01 Cerv Pap Smear (+) Atyp Squamous Cells Undetermined Signif 07/21/2011 GRANT LOCKETT DOA K 079.4 HUMAN PAPILLOMA VIRUS INFECTION 07/21/2011 LOCKETT DO SHANNA K 795.01 Cerv Pap Smear (+) Atyp Squamous Cells Undetermined Signif 09/17/2011 Ot 041.49 OTHER AND UNSPECIFIED ESCHERICHIA COLI [ 09/17/2011 Ot 278.00 OBESITY, NOS 09/17/2011 Ot 300.00 ANXIETY STATE NOS 09/17/2011 Ot 305.1 TOBACCO USE DISORDER 09/17/2011 Ot 305.90 DRUG ABUSE NEC-UNSPEC 09/17/2011 Ot 311 DEPRESSIVE DISORDER NEC 09/17/2011 Ot 486 PNEUMONIA, ORGANISM NOS 09/17/2011 Ot 491.21 OBSTR CHRONIC BRONCHITIS, W (ACUTE) EXAC 09/17/2011 Ot 599.0 URIN TRACT INFECTION NOS 09/17/2011 Ot 799.02 HYPOXEMIA 09/17/2011 Ot V46.2 SUPPLEMENTAL OXYGEN 09/17/2011 Ot V85.34 BODY MASS INDEX 34.0-34.9, ADULT 02/05/2012 Ot 272.4 HYPERLIPIDEMIA NEC/NOS 02/05/2012 Ot 278.00 OBESITY, NOS 02/05/2012 Ot 300.00 ANXIETY STATE NOS 02/05/2012 Ot 303.90 ALCOH DEP NEC/NOS-UNSPEC 02/05/2012 Ot 304.10 SEDATIVE, HYPNOTIC OR ANXIOLYTIC DEPENDE 02/05/2012 Ot 305.1 TOBACCO USE DISORDER 02/05/2012 Ot 496 CHR AIRWAY OBSTRUCT NEC 02/05/2012 Ot 799.02 HYPOXEMIA 02/05/2012 Ot V46.2 SUPPLEMENTAL OXYGEN 02/05/2012 Ot V85.35 BODY MASS INDEX 35.0-35.9, ADULT 03/16/2012 Ot 496 CHR AIRWAY OBSTRUCT NEC 03/24/2012 Ot 305.1 TOBACCO USE DISORDER 03/24/2012 Ot 491.21 OBSTR CHRONIC BRONCHITIS, W (ACUTE) EXAC 03/24/2012 Ot 786.05 SHORTNESS OF BREATH 04/21/2012 Ot 305.1 TOBACCO USE DISORDER 04/21/2012 Ot 491.21 OBSTR CHRONIC BRONCHITIS, W (ACUTE) EXAC 04/21/2012 Ot 786.05 SHORTNESS OF BREATH 04/21/2012 Ot V58.69 OTH MED,LT, CURRENT USE 05/13/2012 V03.82 PPV23 ( PNEUMOVAX) DX 05/13/2012 V06.1 TDAP DX 05/13/2012 DON POOL MD V03.82 PPV23 (PNEUMOVAX) DX 05/13/2012 DON POOL MD V06.1 TDAP DX 05/13/2012 ANNEL JJ APRN V03.82 PPV23 (PNEUMOVAX) DX 05/13/2012 ANNEL JJ APRN V06.1 TDAP DX 05/13/2012 LEVY CARRANZASHANNA V03.82 PPV23 (PNEUMOVAX) DX 05/13/2012 LOCKETT DO SHANNA Mcmanus V06.1 TDAP DX 05/13/2012 LAURA BENNETT MD V03.82 Ppv23 (pneumovax) Dx 05/13/2012 LAURA BENNETT MD V06.1 Tdap Dx 05/13/2012 LOCKETT SHANNA V03.82 Ppv23 (pneumovax) Dx 05/13/2012 LEVY CARRANZASHANNA V06.1 Tdap Dx 05/13/2012 V03.82 Ppv23 ( pneumovax) Dx 05/13/2012 V06.1 Tdap Dx 05/13/2012 V03.82 Ppv23 ( pneumovax) Dx 05/13/2012 V06.1 Tdap Dx 05/13/2012 BINDU PALM MD V03.82 Ppv23 (pneumovax) Dx 05/13/2012 BINDU PALM MD V06.1 Tdap Dx 05/13/2012 V03.82 Ppv23 ( pneumovax) Dx 05/13/2012 V06.1 Tdap Dx 05/13/2012 V03.82 Ppv23 ( pneumovax) Dx 05/13/2012 V06.1 Tdap Dx 05/13/2012 V03.82 Ppv23 ( pneumovax) Dx 05/13/2012 V06.1 Tdap Dx 05/13/2012 V03.82 Ppv23 ( pneumovax) Dx 05/13/2012 V06.1 Tdap Dx 05/13/2012 V03.82 Ppv23 ( pneumovax) Dx 05/13/2012 V06.1 Tdap Dx 05/13/2012 V03.82 Ppv23 ( pneumovax) Dx 05/13/2012 V06.1 Tdap Dx 05/13/2012 V03.82 Ppv23 ( pneumovax) Dx 05/13/2012 V06.1 Tdap Dx 05/13/2012 BINDU PALM MD V03.82 Ppv23 (pneumovax) Dx 05/13/2012 BINDU PALM MD V06.1 Tdap Dx 05/13/2012 BINDU PALM MD V03.82 Ppv23 (pneumovax) Dx 05/13/2012 BINDU PALM MD V06.1 Tdap Dx 05/13/2012 LOCKETT DO, SHANNA K V03.82 Ppv23 (pneumovax) Dx 05/13/2012 LOCKETT DO, SHANNA K V06.1 Tdap Dx 05/13/2012 BINDU PALM MD V03.82 Ppv23 (pneumovax) Dx 05/13/2012 BINDU PALM MD V06.1 Tdap Dx 05/13/2012 CARLINE MARIO APRN S V03.82 Ppv23 (pneumovax) Dx 05/13/2012 CAROLYN MARIO APRNA S V06.1 Tdap Dx 05/13/2012 CARLINE MARIO APRN S V03.82 Ppv23 (pneumovax) Dx 05/13/2012 CARLINE MARIO APRN S V06.1 Tdap Dx 05/13/2012 LAURA BENNETT MD V03.82 Ppv23 (pneumovax) Dx 05/13/2012 LAURA BENNETT MD V06.1 Tdap Dx 05/13/2012 ELIZABETH ROBIN MD V03.82 Ppv23 (pneumovax) Dx 05/13/2012 ELIZABETH ROBIN MD V06.1 Tdap Dx 05/13/2012 LAURA BENNETT MD V03.82 Ppv23 (pneumovax) Dx 05/13/2012 LAURA BENNETT MD V06.1 Tdap Dx 05/13/2012 LOCKETT DO, SHANNA K V03.82 Ppv23 (pneumovax) Dx 05/13/2012 LOCKETT DO, SHANNA K V06.1 Tdap Dx 05/13/2012 MARTÍNEZ MARY APRN N V03.82 Ppv23 (pneumovax) Dx 05/13/2012 MARTÍNEZ MARY APRN N V06.1 Tdap Dx 05/13/2012 BINDU PALM MD V03.82 Ppv23 (pneumovax) Dx 05/13/2012 BINDU PALM MD V06.1 Tdap Dx 05/13/2012 MARTÍNEZ MARY APRN N V03.82 Ppv23 (pneumovax) Dx 05/13/2012 JAYLENE PURDY APRN MARTÍNEZ Alexia V06.1 Tdap Dx 05/13/2012 ANNEL JJ APRN V03.82 Ppv23 (pneumovax) Dx 05/13/2012 АННА DEL TORO, ANNEL FRANCES V06.1 Tdap Dx 05/13/2012 LAURA BENNETT MD V03.82 PPV23 (PNEUMOVAX) DX 05/13/2012 LAURA BENNETT MD V06.1 TDAP DX 05/13/2012 MADL BRANCH CONTROLLER, DION L V03.82 Ppv23 (pneumovax) Dx 05/13/2012 MADL BRANCH CONTROLLER, DION L V06.1 Tdap Dx 05/13/2012 LAURA BENNETT MD V03.82 Ppv23 (pneumovax) Dx 05/13/2012 LAURA BENNETT MD V06.1 Tdap Dx 05/13/2012 MADL BRANCH CONTROLLER, DION L V03.82 Ppv23 (pneumovax) Dx 05/13/2012 MADL BRANCH CONTROLLER, DION L V06.1 Tdap Dx 05/13/2012 LOCKETT DO, SHANNA K V03.82 Ppv23 (pneumovax) Dx 05/13/2012 LOCKETT DO, SHANNA K V06.1 Tdap Dx 05/13/2012 LOCKETT DO, SHANNA K V03.82 Ppv23 (pneumovax) Dx 05/13/2012 LOCKETT DO, SHANNA K V06.1 Tdap Dx 05/13/2012 MADL BRANCH CONTROLLER, DION L V03.82 Ppv23 (pneumovax) Dx 05/13/2012 MADL BRANCH CONTROLLER, DION L V06.1 Tdap Dx 05/13/2012 MADL BRANCH CONTROLLER, DION L V03.82 Ppv23 (pneumovax) Dx 05/13/2012 MADL BRANCH CONTROLLER, DION L V06.1 Tdap Dx 05/13/2012 MADL BRANCH CONTROLLER, DION L V03.82 Ppv23 (pneumovax) Dx 05/13/2012 MADL BRANCH CONTROLLER, DION L V06.1 Tdap Dx 05/13/2012 LOCKETT DO, SHANNA K V03.82 Ppv23 (pneumovax) Dx 05/13/2012 LOCKTET DO, SHANNA K V06.1 Tdap Dx 05/13/2012 MADL BRANCH CONTROLLER, DION L V03.82 Ppv23 (pneumovax) Dx 05/13/2012 MADL BRANCH CONTROLLER, DION L V06.1 Tdap Dx 05/13/2012 MADL BRANCH CONTROLLER, DION L V03.82 Ppv23 (pneumovax) Dx 05/13/2012 MADL BRANCH CONTROLLER, DION L V06.1 Tdap Dx 05/13/2012 MADL BRANCH CONTROLLER, DION L V03.82 Ppv23 (pneumovax) Dx 05/13/2012 MADL BRANCH CONTROLLER, DION L V06.1 Tdap Dx 05/13/2012 MADL BRANCH CONTROLLER, DION L V03.82 Ppv23 (pneumovax) Dx 05/13/2012 MADL BRANCH CONTROLLER, DION L V06.1 Tdap Dx 05/13/2012 MADL BRANCH CONTROLLER, DION L V03.82 Ppv23 (pneumovax) Dx 05/13/2012 MADL BRANCH CONTROLLER, DION L V06.1 Tdap Dx 05/13/2012 MADL BRANCH CONTROLLER, DION L V03.82 Ppv23 (pneumovax) Dx 05/13/2012 MADL BRANCH CONTROLLER, DION L V06.1 Tdap Dx 05/13/2012 MADL BRANCH CONTROLLER, DION L V03.82 Ppv23 (pneumovax) Dx 05/13/2012 MADL BRANCH CONTROLLER, DION L V06.1 Tdap Dx 05/13/2012 MADL BRANCH CONTROLLER, DION L V03.82 Ppv23 (pneumovax) Dx 05/13/2012 MADL BRANCH CONTROLLER, DION L V06.1 Tdap Dx 05/13/2012 MADL BRANCH CONTROLLER, DION L V03.82 Ppv23 (pneumovax) Dx 05/13/2012 MADL BRANCH CONTROLLER, DION L V06.1 Tdap Dx 05/13/2012 LOCKETT DO, SHANNA K V03.82 Ppv23 (pneumovax) Dx 05/13/2012 LOCKETT DO, SHANNA K V06.1 Tdap Dx 05/13/2012 GRAY BRANCH CONTROLLER, BARRY R V03.82 Ppv23 (pneumovax) Dx 05/13/2012 BARRY CASTELLANO APRN R V06.1 Tdap Dx 05/13/2012 LOCKETT SHANNA CARRANZA V03.82 Ppv23 (pneumovax) Dx 05/13/2012 SHANNA LOCKETT DO V06.1 Tdap Dx 07/29/2012 Ot 491.21 OBSTR CHRONIC BRONCHITIS, W (ACUTE) EXAC 07/29/2012 Ot 786.2 COUGH 08/16/2012 Ot 272.4 HYPERLIPIDEMIA NEC/NOS 08/16/2012 Ot 300.00 ANXIETY STATE NOS 08/16/2012 Ot 305.1 TOBACCO USE DISORDER 08/16/2012 Ot 311 DEPRESSIVE DISORDER NEC 08/16/2012 Ot 491.21 OBSTR CHRONIC BRONCHITIS, W (ACUTE) EXAC 08/16/2012 Ot V46.2 SUPPLEMENTAL OXYGEN 10/26/2012 SHANNA LOCKETT DO 466.0 BRONCHITIS, ACUTE 10/26/2012 SHANNA LOCKETT DO 786.07 WHEEZING 10/26/2012 LAURA BENNETT MD 466.0 BRONCHITIS, ACUTE 10/26/2012 LAURA BENNETT MD 786.07 WHEEZING 10/26/2012 SHANNA LOCKETT DO 466.0 BRONCHITIS, ACUTE 10/26/2012 SHANNA LOCKETT DO 786.07 WHEEZING 10/26/2012 466.0 BRONCHITIS, ACUTE 10/26/2012 786.07 WHEEZING 10/26/2012 466.0 BRONCHITIS, ACUTE 10/26/2012 786.07 WHEEZING 10/26/2012 BINDU PALM MD 466.0 BRONCHITIS, ACUTE 10/26/2012 BINDU PALM MD 786.07 WHEEZING 10/26/2012 466.0 BRONCHITIS, ACUTE 10/26/2012 786.07 WHEEZING 10/26/2012 466.0 BRONCHITIS, ACUTE 10/26/2012 786.07 WHEEZING 10/26/2012 466.0 BRONCHITIS, ACUTE 10/26/2012 786.07 WHEEZING 10/26/2012 466.0 BRONCHITIS, ACUTE 10/26/2012 786.07 WHEEZING 10/26/2012 466.0 BRONCHITIS, ACUTE 10/26/2012 786.07 WHEEZING 10/26/2012 466.0 BRONCHITIS, ACUTE 10/26/2012 786.07 WHEEZING 10/26/2012 466.0 BRONCHITIS, ACUTE 10/26/2012 786.07 WHEEZING 10/26/2012 NÉSTOR MOREIRA, BINDU Hidalgo 466.0 BRONCHITIS, ACUTE 10/26/2012 NÉSTOR MOREIRA, BINDU Hidalgo 786.07 WHEEZING 10/26/2012 NÉSTOR MOREIRA, BINDU Hidalgo 466.0 BRONCHITIS, ACUTE 10/26/2012 NÉSTOR MOREIRA, BINDU Hidalgo 786.07 WHEEZING 10/26/2012 LOCKETT DO, SHANNA K 466.0 BRONCHITIS, ACUTE 10/26/2012 LOCKETT DO, SHANNA K 786.07 WHEEZING 10/26/2012 NÉSTOR MOREIRA, BINDU Hidalgo 466.0 BRONCHITIS, ACUTE 10/26/2012 NÉSTOR MOREIRA, BINDU Hidalgo 786.07 WHEEZING 10/26/2012 SHELBI BRANCH CONTROLLER, CARLINE S 466.0 BRONCHITIS, ACUTE 10/26/2012 SHELBI BRANCH CONTROLLER, CARLINE S 786.07 WHEEZING 10/26/2012 SHELBI BRANCH CONTROLLER, CARLINE S 466.0 BRONCHITIS, ACUTE 10/26/2012 SHELBI BRANCH CONTROLLER, CARLINE S 786.07 WHEEZING 10/26/2012 LAURA BENNETT MD 466.0 BRONCHITIS, ACUTE 10/26/2012 LAURA BENNETT MD 786.07 WHEEZING 10/26/2012 LOBITO MOREIRA, ELIZABETH N 466.0 BRONCHITIS, ACUTE 10/26/2012 LOBITO MOREIRA, ELIZABETH N 786.07 WHEEZING 10/26/2012 LAURA BENNETT MD 466.0 BRONCHITIS, ACUTE 10/26/2012 LAURA BENNETT MD 786.07 WHEEZING 10/26/2012 LOCKETT DO, SHANNA K 466.0 BRONCHITIS, ACUTE 10/26/2012 LOCKETT DO, SHANNA K 786.07 WHEEZING 10/26/2012 MARIEE CASHERO BRANCH CONTROLLER, MARTÍNEZ N 466.0 BRONCHITIS, ACUTE 10/26/2012 MARIEE CASHERO BRANCH CONTROLLER, MARTÍNEZ N 786.07 WHEEZING 10/26/2012 NÉSTOR MOREIRA, BINDU Hidalgo 466.0 BRONCHITIS, ACUTE 10/26/2012 BINDU PALM MD 786.07 WHEEZING 10/26/2012 MARIEE CASHERO BRANCH CONTROLLER, MARTÍNEZ N 466.0 BRONCHITIS, ACUTE 10/26/2012 MARIEE CASHERO BRANCH CONTROLLER, MARTÍNEZ N 786.07 WHEEZING 10/26/2012 АННА DEL TORO, ANNEL FRANCES 466.0 BRONCHITIS, ACUTE 10/26/2012 АННА BRANCH CONTROLLER, ANNEL FRANCES 786.07 WHEEZING 10/26/2012 MADL BRANCH CONTROLLER, DION L 466.0 BRONCHITIS, ACUTE 10/26/2012 MADL BRANCH CONTROLLER, DION L 786.07 WHEEZING 10/26/2012 SABRINA MOREIRA, LAURA 466.0 BRONCHITIS, ACUTE 10/26/2012 LAURA BENNETT MD 786.07 WHEEZING 10/26/2012 MADL BRANCH CONTROLLER, DION L 466.0 BRONCHITIS, ACUTE 10/26/2012 MADL BRANCH CONTROLLER, DION L 786.07 WHEEZING 10/26/2012 LOCKETT DO, SHANNA K 466.0 BRONCHITIS, ACUTE 10/26/2012 LOCKETT DO, SHANNA K 786.07 WHEEZING 10/26/2012 LOCKETT DO, SHANNA K 466.0 BRONCHITIS, ACUTE 10/26/2012 LOCKETT DO, SHANNA K 786.07 WHEEZING 10/26/2012 MADL BRANCH CONTROLLER, DION L 466.0 BRONCHITIS, ACUTE 10/26/2012 MADL BRANCH CONTROLLER, DION L 786.07 WHEEZING 10/26/2012 MADL BRANCH CONTROLLER, DION L 466.0 BRONCHITIS, ACUTE 10/26/2012 MADL BRANCH CONTROLLER, DION L 786.07 WHEEZING 10/26/2012 MADL BRANCH CONTROLLER, DION L 466.0 BRONCHITIS, ACUTE 10/26/2012 MADL BRANCH CONTROLLER, DION L 786.07 WHEEZING 10/26/2012 LOCKETT DO, SHANNA K 466.0 BRONCHITIS, ACUTE 10/26/2012 LOCKETT DO, SHANNA K 786.07 WHEEZING 10/26/2012 MADL BRANCH CONTROLLER, DION L 466.0 BRONCHITIS, ACUTE 10/26/2012 MADL BRANCH CONTROLLER, DION L 786.07 WHEEZING 10/26/2012 MADL BRANCH CONTROLLER, DION L 466.0 BRONCHITIS, ACUTE 10/26/2012 MADL BRANCH CONTROLLER, DION L 786.07 WHEEZING 10/26/2012 MADL BRANCH CONTROLLER, DION L 466.0 BRONCHITIS, ACUTE 10/26/2012 MADL BRANCH CONTROLLER, DION L 786.07 WHEEZING 10/26/2012 MADL BRANCH CONTROLLER, DION L 466.0 BRONCHITIS, ACUTE 10/26/2012 MADL BRANCH CONTROLLER, DION L 786.07 WHEEZING 10/26/2012 MADL BRANCH CONTROLLER, DION L 466.0 BRONCHITIS, ACUTE 10/26/2012 MADL BRANCH CONTROLLER, DION L 786.07 WHEEZING 10/26/2012 MADL BRANCH CONTROLLER, DION L 466.0 BRONCHITIS, ACUTE 10/26/2012 MADL BRANCH CONTROLLER, DION L 786.07 WHEEZING 10/26/2012 MADL BRANCH CONTROLLER, DION L 466.0 BRONCHITIS, ACUTE 10/26/2012 MADL BRANCH CONTROLLER, IDON L 786.07 WHEEZING 10/26/2012 MADL BRANCH CONTROLLER, DION L 466.0 BRONCHITIS, ACUTE 10/26/2012 MADL BRANCH CONTROLLER, DION L 786.07 WHEEZING 10/26/2012 MADL BRANCH CONTROLLER, DION L 466.0 BRONCHITIS, ACUTE 10/26/2012 MADL BRANCH CONTROLLER, DION L 786.07 WHEEZING 10/26/2012 LOCKETT DO SHANNA K 466.0 BRONCHITIS, ACUTE 10/26/2012 GRANT LOCKETT DOA K 786.07 WHEEZING 10/26/2012 CASTELLANO BRANCH CONTROLLER, BARRY R 466.0 BRONCHITIS, ACUTE 10/26/2012 CASTELLANO BRANCH CONTROLLER, BARRY R 786.07 WHEEZING 10/26/2012 LOCKETT DO, SHANNA K 466.0 BRONCHITIS, ACUTE 10/26/2012 GRANT LOCKETT DOA K 786.07 WHEEZING 11/04/2012 Ot 491.21 OBSTR CHRONIC BRONCHITIS, W (ACUTE) EXAC 11/04/2012 Ot 786.05 SHORTNESS OF BREATH 11/07/2012 LAURA BENNETT MD 627.8 PERIMENOPAUSE 11/07/2012 LAURA BENNETT MD V73.81 HPV SCREENING 11/07/2012 LAURA BENNETT MD V76.2 CERVICAL CANCER SCREENING (PAP SMEAR) 11/07/2012 SHANNA LOCKETT DO 627.8 PERIMENOPAUSE 11/07/2012 SHANNA LOCKETT DO V73.81 HPV SCREENING 11/07/2012 SHANNA LOCKETT DO V76.2 CERVICAL CANCER SCREENING (PAP SMEAR) 11/07/2012 627.8 PERIMENOPAUSE 11/07/2012 V73.81 HPV SCREENING 11/07/2012 V76.2 CERVICAL CANCER SCREENING (PAP SMEAR) 11/07/2012 627.8 PERIMENOPAUSE 11/07/2012 V73.81 HPV SCREENING 11/07/2012 V76.2 CERVICAL CANCER SCREENING (PAP SMEAR) 11/07/2012 BINDU PALM MD 627.8 PERIMENOPAUSE 11/07/2012 BINDU PALM MD V73.81 HPV SCREENING 11/07/2012 BINDU PALM MD V76.2 CERVICAL CANCER SCREENING (PAP SMEAR) 11/07/2012 627.8 PERIMENOPAUSE 11/07/2012 V73.81 HPV SCREENING 11/07/2012 V76.2 CERVICAL CANCER SCREENING (PAP SMEAR) 11/07/2012 627.8 PERIMENOPAUSE 11/07/2012 V73.81 HPV SCREENING 11/07/2012 V76.2 CERVICAL CANCER SCREENING (PAP SMEAR) 11/07/2012 627.8 PERIMENOPAUSE 11/07/2012 V73.81 HPV SCREENING 11/07/2012 V76.2 CERVICAL CANCER SCREENING (PAP SMEAR) 11/07/2012 627.8 PERIMENOPAUSE 11/07/2012 V73.81 HPV SCREENING 11/07/2012 V76.2 CERVICAL CANCER SCREENING (PAP SMEAR) 11/07/2012 627.8 PERIMENOPAUSE 11/07/2012 V73.81 HPV SCREENING 11/07/2012 V76.2 CERVICAL CANCER SCREENING (PAP SMEAR) 11/07/2012 627.8 PERIMENOPAUSE 11/07/2012 V73.81 HPV SCREENING 11/07/2012 V76.2 CERVICAL CANCER SCREENING (PAP SMEAR) 11/07/2012 627.8 PERIMENOPAUSE 11/07/2012 V73.81 HPV SCREENING 11/07/2012 V76.2 CERVICAL CANCER SCREENING (PAP SMEAR) 11/07/2012 BINDU PALM MD 627.8 PERIMENOPAUSE 11/07/2012 BINDU PALM MD V73.81 HPV SCREENING 11/07/2012 BINDU PALM MD V76.2 CERVICAL CANCER SCREENING (PAP SMEAR) 11/07/2012 BINDU PALM MD 627.8 PERIMENOPAUSE 11/07/2012 BINDU PALM MD V73.81 HPV SCREENING 11/07/2012 BINDU PALM MD V76.2 CERVICAL CANCER SCREENING (PAP SMEAR) 11/07/2012 SHANNA LOCKETT DO 627.8 PERIMENOPAUSE 11/07/2012 SHANNA LOCKETT DO V73.81 HPV SCREENING 11/07/2012 SHANNA LOCKETT DO V76.2 CERVICAL CANCER SCREENING (PAP SMEAR) 11/07/2012 BINDU PALM MD 627.8 PERIMENOPAUSE 11/07/2012 BINDU PALM MD V73.81 HPV SCREENING 11/07/2012 BINDU PALM MD V76.2 CERVICAL CANCER SCREENING (PAP SMEAR) 11/07/2012 SHELBI DEL TORO CARLINE S 627.8 PERIMENOPAUSE 11/07/2012 SHELBI DEL TORO CARLINE S V73.81 HPV SCREENING 11/07/2012 SHELBI DEL TORO CARLINE S V76.2 CERVICAL CANCER SCREENING (PAP SMEAR) 11/07/2012 SHELBI DEL TORO CARLINE S 627.8 PERIMENOPAUSE 11/07/2012 SHELBI DEL TORO CARLINE S V73.81 HPV SCREENING 11/07/2012 SHELBI DEL TORO CARLINE S V76.2 CERVICAL CANCER SCREENING (PAP SMEAR) 11/07/2012 LAURA BENNETT MD 627.8 PERIMENOPAUSE 11/07/2012 LAURA BENNETT MD V73.81 HPV SCREENING 11/07/2012 LAURA BENNETT MD V76.2 CERVICAL CANCER SCREENING (PAP SMEAR) 11/07/2012 ELIZABETH ROBIN MD 627.8 PERIMENOPAUSE 11/07/2012 ELIZABETH ROBIN MD V73.81 HPV SCREENING 11/07/2012 ELIZABETH ROBIN MD V76.2 CERVICAL CANCER SCREENING (PAP SMEAR) 11/07/2012 LAURA BENNETT MD 627.8 PERIMENOPAUSE 11/07/2012 LAURA BENNETT MD V73.81 HPV SCREENING 11/07/2012 LAURA BENNETT MD V76.2 CERVICAL CANCER SCREENING (PAP SMEAR) 11/07/2012 SHANNA LOCKETT DO 627.8 PERIMENOPAUSE 11/07/2012 SHANNA LOCKETT DO V73.81 HPV SCREENING 11/07/2012 SHANNA LOCKETT DO V76.2 CERVICAL CANCER SCREENING (PAP SMEAR) 11/07/2012 MARTÍNEZ MARY APRN 627.8 PERIMENOPAUSE 11/07/2012 JAYLENE PURDY BRANCH CONTROLLER, MARTÍNEZ N V73.81 HPV SCREENING 11/07/2012 JAYLENE PURDY SUJATHA DEL TOROCY N V76.2 CERVICAL CANCER SCREENING (PAP SMEAR) 11/07/2012 BINDU PALM MD 627.8 PERIMENOPAUSE 11/07/2012 BINDU PALM MD V73.81 HPV SCREENING 11/07/2012 BINDU PALM MD V76.2 CERVICAL CANCER SCREENING (PAP SMEAR) 11/07/2012 MARIEE GRISELDAMARTÍNEZ SALOMON APRN N 627.8 PERIMENOPAUSE 11/07/2012 MARIEE RAJWINDER KATEY, MARTÍNEZ N V73.81 HPV SCREENING 11/07/2012 JAYLENE VILLALOBOSUMM DEL TORO, MARTÍNEZ N V76.2 CERVICAL CANCER SCREENING (PAP SMEAR) 11/07/2012 АННА DEL TORO ANNEL YVROSE 627.8 PERIMENOPAUSE 11/07/2012 ANNEL JJ APRN V73.81 HPV SCREENING 11/07/2012 АННА DEL [place]OR[place] ANNEL YVROSE V76.2 CERVICAL CANCER SCREENING (PAP SMEAR) 11/07/2012 DION SOTO APRN 627.8 PERIMENOPAUSE 11/07/2012 DION SOTO APRN L V73.81 HPV SCREENING 11/07/2012 DION SOTO APRN L V76.2 CERVICAL CANCER SCREENING (PAP SMEAR) 11/07/2012 LAURA BENNETT MD 627.8 PERIMENOPAUSE 11/07/2012 LAURA BENNETT MD V73.81 HPV SCREENING 11/07/2012 LAURA BENNETT MD V76.2 CERVICAL CANCER SCREENING (PAP SMEAR) 11/07/2012 DION SOTO APRN 627.8 PERIMENOPAUSE 11/07/2012 LAURE SOTO APRNA L V73.81 HPV SCREENING 11/07/2012 LAURE SOTO APRNA L V76.2 CERVICAL CANCER SCREENING (PAP SMEAR) 11/07/2012 SHANNA LOCKETT DO 627.8 PERIMENOPAUSE 11/07/2012 SHANNA LOCKETT DO V73.81 HPV SCREENING 11/07/2012 SHANNA LOCKETT DO V76.2 CERVICAL CANCER SCREENING (PAP SMEAR) 11/07/2012 SHANNA LOCKETT DO 627.8 PERIMENOPAUSE 11/07/2012 LOCKETT GRANT CARRANZAA K V73.81 HPV SCREENING 11/07/2012 LOCKETT SHANNA CARRANZA K V76.2 CERVICAL CANCER SCREENING (PAP SMEAR) 11/07/2012 MADL BRANCH CONTROLLER, DION L 627.8 PERIMENOPAUSE 11/07/2012 MADL BRANCH CONTROLLER, DION L V73.81 HPV SCREENING 11/07/2012 MADL BRANCH CONTROLLER, DION L V76.2 CERVICAL CANCER SCREENING (PAP SMEAR) 11/07/2012 MADL BRANCH CONTROLLER, DION L 627.8 PERIMENOPAUSE 11/07/2012 MADL BRANCH CONTROLLER, DION L V73.81 HPV SCREENING 11/07/2012 MADL BRANCH CONTROLLER, DION L V76.2 CERVICAL CANCER SCREENING (PAP SMEAR) 11/07/2012 MADL BRANCH CONTROLLER, DION L 627.8 PERIMENOPAUSE 11/07/2012 MADL BRANCH CONTROLLER, DION L V73.81 HPV SCREENING 11/07/2012 MADL BRANCH CONTROLLER, DION L V76.2 CERVICAL CANCER SCREENING (PAP SMEAR) 11/07/2012 LOCKETT SHANNA CARRANZA K 627.8 PERIMENOPAUSE 11/07/2012 LOCKETT GRANT CARRANZAA K V73.81 HPV SCREENING 11/07/2012 LOCKETT DOGRANTA K V76.2 CERVICAL CANCER SCREENING (PAP SMEAR) 11/07/2012 MADL BRANCH CONTROLLER, DION L 627.8 PERIMENOPAUSE 11/07/2012 MADL BRANCH CONTROLLER, DION L V73.81 HPV SCREENING 11/07/2012 MADL BRANCH CONTROLLER, DION L V76.2 CERVICAL CANCER SCREENING (PAP SMEAR) 11/07/2012 MADL BRANCH CONTROLLER, DION L 627.8 PERIMENOPAUSE 11/07/2012 MADL BRANCH CONTROLLER, DION L V73.81 HPV SCREENING 11/07/2012 MADL BRANCH CONTROLLER, DION L V76.2 CERVICAL CANCER SCREENING (PAP SMEAR) 11/07/2012 MADL BRANCH CONTROLLER, DION L 627.8 PERIMENOPAUSE 11/07/2012 MADL BRANCH CONTROLLER, DION L V73.81 HPV SCREENING 11/07/2012 MADL BRANCH CONTROLLER, DION L V76.2 CERVICAL CANCER SCREENING (PAP SMEAR) 11/07/2012 MADL BRANCH CONTROLLER, DION L 627.8 PERIMENOPAUSE 11/07/2012 MADL BRANCH CONTROLLER, DION L V73.81 HPV SCREENING 11/07/2012 MADL BRANCH CONTROLLER, DION L V76.2 CERVICAL CANCER SCREENING (PAP SMEAR) 11/07/2012 MADL BRANCH CONTROLLER, DION L 627.8 PERIMENOPAUSE 11/07/2012 MADL BRANCH CONTROLLER, DION L V73.81 HPV SCREENING 11/07/2012 MADL BRANCH CONTROLLER, DION L V76.2 CERVICAL CANCER SCREENING (PAP SMEAR) 11/07/2012 MADL BRANCH CONTROLLER, DION L 627.8 PERIMENOPAUSE 11/07/2012 MADL BRANCH CONTROLLER, DION L V73.81 HPV SCREENING 11/07/2012 MADL BRANCH CONTROLLER, DION L V76.2 CERVICAL CANCER SCREENING (PAP SMEAR) 11/07/2012 MADL BRANCH CONTROLLER, DION L 627.8 PERIMENOPAUSE 11/07/2012 MADL BRANCH CONTROLLER, DION L V73.81 HPV SCREENING 11/07/2012 MADL BRANCH CONTROLLER, DION L V76.2 CERVICAL CANCER SCREENING (PAP SMEAR) 11/07/2012 MADL BRANCH CONTROLLER, DION L 627.8 PERIMENOPAUSE 11/07/2012 MADL BRANCH CONTROLLER, DION L V73.81 HPV SCREENING 11/07/2012 MADL BRANCH CONTROLLER, DION L V76.2 CERVICAL CANCER SCREENING (PAP SMEAR) 11/07/2012 MADL BRANCH CONTROLLER, DION L 627.8 PERIMENOPAUSE 11/07/2012 MADL BRANCH CONTROLLER, DION L V73.81 HPV SCREENING 11/07/2012 MADL BRANCH CONTROLLER, DION L V76.2 CERVICAL CANCER SCREENING (PAP SMEAR) 11/07/2012 LOCKETT DO, SHANNA K 627.8 PERIMENOPAUSE 11/07/2012 LOCKETT DO SHANNA K V73.81 HPV SCREENING 11/07/2012 LOCKETT DO SHANNA K V76.2 CERVICAL CANCER SCREENING (PAP SMEAR) 11/07/2012 BARRY CASTELLANO APRN 627.8 PERIMENOPAUSE 11/07/2012 CASTELLANO RENO DEL TOROIA R V73.81 HPV SCREENING 11/07/2012 CASTELLANO BARRY DEL TORO R V76.2 CERVICAL CANCER SCREENING (PAP SMEAR) 11/07/2012 SHANNA LOCKETT DO K 627.8 PERIMENOPAUSE 11/07/2012 SHANNA LOCKETT DO K V73.81 HPV SCREENING 11/07/2012 SHANNA LOCKETT DO K V76.2 CERVICAL CANCER SCREENING (PAP SMEAR) 12/05/2012 788.1 DYSURIA 12/05/2012 795.00 ABNORMAL PAP - AGCUS (ATYPICAL GLANDULAR CELLS OF UNDETERMINED SIGNIFICANCE) 12/05/2012 BINDU PALM MD 788.1 DYSURIA 12/05/2012 BINDU PALM MD 795.00 ABNORMAL PAP - AGCUS (ATYPICAL GLANDULAR CELLS OF UNDETERMINED SIGNIFICANCE) 12/05/2012 788.1 DYSURIA 12/05/2012 795.00 ABNORMAL PAP - AGCUS (ATYPICAL GLANDULAR CELLS OF UNDETERMINED SIGNIFICANCE) 12/05/2012 788.1 DYSURIA 12/05/2012 795.00 ABNORMAL PAP - AGCUS (ATYPICAL GLANDULAR CELLS OF UNDETERMINED SIGNIFICANCE) 12/05/2012 788.1 DYSURIA 12/05/2012 795.00 ABNORMAL PAP - AGCUS (ATYPICAL GLANDULAR CELLS OF UNDETERMINED SIGNIFICANCE) 12/05/2012 788.1 DYSURIA 12/05/2012 795.00 ABNORMAL PAP - AGCUS (ATYPICAL GLANDULAR CELLS OF UNDETERMINED SIGNIFICANCE) 12/05/2012 788.1 DYSURIA 12/05/2012 795.00 ABNORMAL PAP - AGCUS (ATYPICAL GLANDULAR CELLS OF UNDETERMINED SIGNIFICANCE) 12/05/2012 788.1 DYSURIA 12/05/2012 795.00 ABNORMAL PAP - AGCUS (ATYPICAL GLANDULAR CELLS OF UNDETERMINED SIGNIFICANCE) 12/05/2012 788.1 DYSURIA 12/05/2012 795.00 ABNORMAL PAP - AGCUS (ATYPICAL GLANDULAR CELLS OF UNDETERMINED SIGNIFICANCE) 12/05/2012 BINDU PALM MD 788.1 DYSURIA 12/05/2012 BINDU PALM MD 795.00 ABNORMAL PAP - AGCUS (ATYPICAL GLANDULAR CELLS OF UNDETERMINED SIGNIFICANCE) 12/05/2012 BINDU PALM MD 788.1 DYSURIA 12/05/2012 BINDU PALM MD 795.00 ABNORMAL PAP - AGCUS (ATYPICAL GLANDULAR CELLS OF UNDETERMINED SIGNIFICANCE) 12/05/2012 LOCKETT GRANT CARRANZAA K 788.1 DYSURIA 12/05/2012 GRANT LOCKETT DOA K 795.00 ABNORMAL PAP - AGCUS (ATYPICAL GLANDULAR CELLS OF UNDETERMINED SIGNIFICANCE) 12/05/2012 BINDU PALM MD 788.1 DYSURIA 12/05/2012 BINDU PALM MD 795.00 ABNORMAL PAP - AGCUS (ATYPICAL GLANDULAR CELLS OF UNDETERMINED SIGNIFICANCE) 12/05/2012 SHELBI DEL TORO CARLINE S 788.1 DYSURIA 12/05/2012 SHELBI DEL TORO CARLINE S 795.00 ABNORMAL PAP - AGCUS (ATYPICAL GLANDULAR CELLS OF UNDETERMINED SIGNIFICANCE) 12/05/2012 SHELBI DEL TORO CARLINE S 788.1 DYSURIA 12/05/2012 SHELBI DEL TORO CARLINE S 795.00 ABNORMAL PAP - AGCUS (ATYPICAL GLANDULAR CELLS OF UNDETERMINED SIGNIFICANCE) 12/05/2012 LAURA BENNETT MD 788.1 DYSURIA 12/05/2012 LAURA BENNETT MD 795.00 ABNORMAL PAP - AGCUS (ATYPICAL GLANDULAR CELLS OF UNDETERMINED SIGNIFICANCE ) 12/05/2012 ELIZABETH ROBIN MD 788.1 DYSURIA 12/05/2012 ELIZABETH ROBIN MD 795.00 ABNORMAL PAP - AGCUS (ATYPICAL GLANDULAR CELLS OF UNDETERMINED SIGNIFICANCE) 12/05/2012 LAURA BENNETT MD 788.1 DYSURIA 12/05/2012 LAURA BENNETT MD 795.00 ABNORMAL PAP - AGCUS (ATYPICAL GLANDULAR CELLS OF UNDETERMINED SIGNIFICANCE ) 12/05/2012 GRANT LOCKETT DOA K 788.1 DYSURIA 12/05/2012 GRANT LOCKETT DOA K 795.00 ABNORMAL PAP - AGCUS (ATYPICAL GLANDULAR CELLS OF UNDETERMINED SIGNIFICANCE) 12/05/2012 MARTÍNEZ MARY APRN N 788.1 DYSURIA 12/05/2012 MARTÍNEZ MARY APRN N 795.00 ABNORMAL PAP - AGCUS (ATYPICAL GLANDULAR CELLS OF UNDETERMINED SIGNIFICANCE) 12/05/2012 BINDU PALM MD 788.1 DYSURIA 12/05/2012 BINDU PALM MD 795.00 ABNORMAL PAP - AGCUS (ATYPICAL GLANDULAR CELLS OF UNDETERMINED SIGNIFICANCE) 12/05/2012 JAYLENE PURDY APRN, MARTÍNEZ N 788.1 DYSURIA 12/05/2012 MARTÍNEZ MARY APRN N 795.00 ABNORMAL PAP - AGCUS (ATYPICAL GLANDULAR CELLS OF UNDETERMINED SIGNIFICANCE) 12/05/2012 ANNEL JJ APRN 788.1 DYSURIA 12/05/2012 ANNEL JJ APRN 795.00 ABNORMAL PAP - AGCUS (ATYPICAL GLANDULAR CELLS OF UNDETERMINED SIGNIFICANCE) 12/05/2012 MADL BRANCH CONTROLLER, DION L 788.1 DYSURIA 12/05/2012 MADL BRANCH CONTROLLER, DION L 795.00 ABNORMAL PAP - AGCUS (ATYPICAL GLANDULAR CELLS OF UNDETERMINED SIGNIFICANCE) 12/05/2012 LAURA BENNETT MD 788.1 DYSURIA 12/05/2012 LAURA BENNETT MD 795.00 ABNORMAL PAP - AGCUS (ATYPICAL GLANDULAR CELLS OF UNDETERMINED SIGNIFICANCE ) 12/05/2012 MADL BRANCH CONTROLLER, DION L 788.1 DYSURIA 12/05/2012 MADL BRANCH CONTROLLER, DION L 795.00 ABNORMAL PAP - AGCUS (ATYPICAL GLANDULAR CELLS OF UNDETERMINED SIGNIFICANCE) 12/05/2012 LOCKETT DO, SHANNA K 788.1 DYSURIA 12/05/2012 LOCKETT DO, SHANNA K 795.00 ABNORMAL PAP - AGCUS (ATYPICAL GLANDULAR CELLS OF UNDETERMINED SIGNIFICANCE) 12/05/2012 LOCKETT DO, SHANNA K 788.1 DYSURIA 12/05/2012 LOCKETT DO, SHANNA K 795.00 ABNORMAL PAP - AGCUS (ATYPICAL GLANDULAR CELLS OF UNDETERMINED SIGNIFICANCE) 12/05/2012 MADL BRANCH CONTROLLER, DION L 788.1 DYSURIA 12/05/2012 MADL BRANCH CONTROLLER, DION L 795.00 ABNORMAL PAP - AGCUS (ATYPICAL GLANDULAR CELLS OF UNDETERMINED SIGNIFICANCE) 12/05/2012 MADL BRANCH CONTROLLER, DION L 788.1 DYSURIA 12/05/2012 MADL BRANCH CONTROLLER, DION L 795.00 ABNORMAL PAP - AGCUS (ATYPICAL GLANDULAR CELLS OF UNDETERMINED SIGNIFICANCE) 12/05/2012 MADL BRANCH CONTROLLER, DION L 788.1 DYSURIA 12/05/2012 MADL BRANCH CONTROLLER, DION L 795.00 ABNORMAL PAP - AGCUS (ATYPICAL GLANDULAR CELLS OF UNDETERMINED SIGNIFICANCE) 12/05/2012 LOCKETT DO, SHANNA K 788.1 DYSURIA 12/05/2012 LOCKETT DO, SHANNA K 795.00 ABNORMAL PAP - AGCUS (ATYPICAL GLANDULAR CELLS OF UNDETERMINED SIGNIFICANCE) 12/05/2012 MADL BRANCH CONTROLLER, DION L 788.1 DYSURIA 12/05/2012 MADL BRANCH CONTROLLER, DION L 795.00 ABNORMAL PAP - AGCUS (ATYPICAL GLANDULAR CELLS OF UNDETERMINED SIGNIFICANCE) 12/05/2012 MADL BRANCH CONTROLLER, DION L 788.1 DYSURIA 12/05/2012 MADL BRANCH CONTROLLER, DION L 795.00 ABNORMAL PAP - AGCUS (ATYPICAL GLANDULAR CELLS OF UNDETERMINED SIGNIFICANCE) 12/05/2012 MADL BRANCH CONTROLLER, DION L 788.1 DYSURIA 12/05/2012 MADL BRANCH CONTROLLER, DION L 795.00 ABNORMAL PAP - AGCUS (ATYPICAL GLANDULAR CELLS OF UNDETERMINED SIGNIFICANCE) 12/05/2012 MADL BRANCH CONTROLLER, DION L 788.1 DYSURIA 12/05/2012 MADL BRANCH CONTROLLER, DION L 795.00 ABNORMAL PAP - AGCUS (ATYPICAL GLANDULAR CELLS OF UNDETERMINED SIGNIFICANCE) 12/05/2012 MADL BRANCH CONTROLLER, DION L 788.1 DYSURIA 12/05/2012 MADL BRANCH CONTROLLER, DION L 795.00 ABNORMAL PAP - AGCUS (ATYPICAL GLANDULAR CELLS OF UNDETERMINED SIGNIFICANCE) 12/05/2012 MADL BRANCH CONTROLLER, DION L 788.1 DYSURIA 12/05/2012 MADL BRANCH CONTROLLER, DION L 795.00 ABNORMAL PAP - AGCUS (ATYPICAL GLANDULAR CELLS OF UNDETERMINED SIGNIFICANCE) 12/05/2012 MADL BRANCH CONTROLLER, DION L 788.1 DYSURIA 12/05/2012 MADL BRANCH CONTROLLER, DION L 795.00 ABNORMAL PAP - AGCUS (ATYPICAL GLANDULAR CELLS OF UNDETERMINED SIGNIFICANCE) 12/05/2012 MADL BRANCH CONTROLLER, DION L 788.1 DYSURIA 12/05/2012 MADL BRANCH CONTROLLER, DION L 795.00 ABNORMAL PAP - AGCUS (ATYPICAL GLANDULAR CELLS OF UNDETERMINED SIGNIFICANCE) 12/05/2012 MADL BRANCH CONTROLLER, DION L 788.1 DYSURIA 12/05/2012 DION SOTO APRN L 795.00 ABNORMAL PAP - AGCUS (ATYPICAL GLANDULAR CELLS OF UNDETERMINED SIGNIFICANCE) 12/05/2012 GRANT LOCKETT DOA K 788.1 DYSURIA 12/05/2012 GRANT LOCKETT DOA K 795.00 ABNORMAL PAP - AGCUS (ATYPICAL GLANDULAR CELLS OF UNDETERMINED SIGNIFICANCE) 12/05/2012 CASTELLANO BRANCH CONTROLLERJACKELINEBARRY R 788.1 DYSURIA 12/05/2012 CASTELLANO BRANCH CONTROLLER, BARRY R 795.00 ABNORMAL PAP - AGCUS (ATYPICAL GLANDULAR CELLS OF UNDETERMINED SIGNIFICANCE) 12/05/2012 GRANT LOCKETT DOA K 788.1 DYSURIA 12/05/2012 GRANT LOCKETT DOA K 795.00 ABNORMAL PAP - AGCUS (ATYPICAL GLANDULAR CELLS OF UNDETERMINED SIGNIFICANCE) 03/20/2013 LEON MOREIRA, KELLIE Tello Ot 305.1 TOBACCO USE DISORDER 03/20/2013 KELLIE QUINTERO MD Ot 496 CHR AIRWAY OBSTRUCT NEC 03/20/2013 KELLIE QUINTERO MD Ot 786.05 SHORTNESS OF BREATH 03/23/2013 NHI CHAVEZ MD Ot 491.21 OBSTR CHRONIC BRONCHITIS, W (ACUTE) EXAC 03/23/2013 NHI CHAVEZ MD Ot 786.50 CHEST PAIN NOS 05/15/2013 JOHN KILPATRICK APRN Ot 491.21 OBSTR CHRONIC BRONCHITIS, W (ACUTE) EXAC 05/15/2013 JOHN KILPATRICK APRN Ot 786.50 CHEST PAIN NOS 05/17/2013 GRANT LOCKETT DOA K Ot 300.00 ANXIETY STATE NOS 05/17/2013 LOCKETT GRANT CARRANZAA K Ot 305.1 TOBACCO USE DISORDER 05/17/2013 LOCKETT DO SHANNA K Ot 311 DEPRESSIVE DISORDER NEC 05/17/2013 LOCKETT DO SHANNA K Ot 491.21 OBSTR CHRONIC BRONCHITIS, W (ACUTE) EXAC 05/17/2013 LOCKETT DO SHANNA K Ot 799.3 DEBILITY NOS 06/02/2013 477.9 RHINITIS 06/02/2013 BINDU PALM MD 477.9 RHINITIS 06/02/2013 BINDU PALM MD 477.9 RHINITIS 06/02/2013 SHANNA LOCKETT DO 477.9 RHINITIS 06/02/2013 BINDU PALM MD 477.9 RHINITIS 06/02/2013 SHELBI BRANCH CONTROLLER, CARLINE S 477.9 RHINITIS 06/02/2013 SHELBI BRANCH CONTROLLER, CARLINE S 477.9 RHINITIS 06/02/2013 SABRINA MOREIRA, LAURA 477.9 RHINITIS 06/02/2013 LOBITO MOREIRA, ELIZABETH N 477.9 RHINITIS 06/02/2013 SABRINA MOREIRA, LAURA 477.9 RHINITIS 06/02/2013 LOCKETT DO, SHANNA K 477.9 RHINITIS 06/02/2013 MARIEE CASHERO BRANCH CONTROLLER, MARTÍNEZ N 477.9 RHINITIS 06/02/2013 NÉSTOR MOREIRA, BINDU Hidalgo 477.9 RHINITIS 06/02/2013 MARIEE CASHERO BRANCH CONTROLLER, MARTÍNEZ N 477.9 RHINITIS 06/02/2013 АННА DEL TORO, ANNEL YVROSE 477.9 RHINITIS 06/02/2013 MADL BRANCH CONTROLLER, DION L 477.9 RHINITIS 06/02/2013 SABRINA MOREIRA, LAURA 477.9 RHINITIS 06/02/2013 MADL BRANCH CONTROLLER, DION L 477.9 RHINITIS 06/02/2013 LOCKETT DO, SHANNA K 477.9 RHINITIS 06/02/2013 LOCKETT DO, SHANNA K 477.9 RHINITIS 06/02/2013 MADL BRANCH CONTROLLER, DION L 477.9 RHINITIS 06/02/2013 MADL BRANCH CONTROLLER, DION L 477.9 RHINITIS 06/02/2013 MADL BRANCH CONTROLLER, DION L 477.9 RHINITIS 06/02/2013 LOCKETT DO, SHANNA K 477.9 RHINITIS 06/02/2013 MADL BRANCH CONTROLLER, DION L 477.9 RHINITIS 06/02/2013 MADL BRANCH CONTROLLER, DION L 477.9 RHINITIS 06/02/2013 MADL BRANCH CONTROLLER, DION L 477.9 RHINITIS 06/02/2013 MADL BRANCH CONTROLLER, DION L 477.9 RHINITIS 06/02/2013 MADL BRANCH CONTROLLER, DION L 477.9 RHINITIS 06/02/2013 MADL BRANCH CONTROLLER, DION L 477.9 RHINITIS 06/02/2013 MADL BRANCH CONTROLLER, DION L 477.9 RHINITIS 06/02/2013 MADL BRANCH CONTROLLER, DION L 477.9 RHINITIS 06/02/2013 MADL BRANCH CONTROLLER, DION L 477.9 RHINITIS 06/02/2013 LOCKETT DO, SHANNA K 477.9 RHINITIS 06/02/2013 CASTELLANO BRANCH CONTROLLER, BARRY R 477.9 RHINITIS 06/02/2013 LOCKETT DO, SHANNA K 477.9 RHINITIS 06/21/2013 BINDU PALM MD 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 06/21/2013 BINDU PALM MD 799.2 anxiety 06/21/2013 HSANNA LOCKETT DO K 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 06/21/2013 SHANNA LOCKETT DO K 799.2 anxiety 06/21/2013 BINDU PALM MD 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 06/21/2013 BINDU PALM MD 799.2 anxiety 06/21/2013 SHELBI DEL TORO CARLINE S 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 06/21/2013 SHELBI DEL TORO CARLINE S 799.2 anxiety 06/21/2013 SHELBI DEL TORO CARLINE S 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 06/21/2013 SHELBI DEL TORO CARLINE S 799.2 anxiety 06/21/2013 LAURA BENNETT MD 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 06/21/2013 LAURA BENNETT MD 799.2 anxiety 06/21/2013 ELIZABETH ROBIN MD 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 06/21/2013 ELIZABETH ROBIN MD 799.2 anxiety 06/21/2013 LAURA BENNETT MD 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 06/21/2013 LAURA BENNETT MD 799.2 anxiety 06/21/2013 SHANNA LOCKETT DO K 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 06/21/2013 SHANNA LOCKETT DO K 799.2 anxiety 06/21/2013 MARTÍNEZ MARY APRN N 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 06/21/2013 MARTÍNEZ MARY APRN N 799.2 anxiety 06/21/2013 BINDU PALM MD 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 06/21/2013 BINDU PALM MD 799.2 anxiety 06/21/2013 JAYLENE PURDY BRANCH CONTROLLER, MARTÍNEZ N 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 06/21/2013 JAYLENE PURDY APRN, MARTÍNEZ N 799.2 anxiety 06/21/2013 АННА DE LUNANANNEL 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 06/21/2013 АННА DE LUNANANNEL 799.2 anxiety 06/21/2013 MADL BRANCH CONTROLLER, DION L 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 06/21/2013 MADL BRANCH CONTROLLER, DION L 799.2 anxiety 06/21/2013 LAURA BENNETT MD 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 06/21/2013 LAURA BENNETT MD 799.2 anxiety 06/21/2013 MADL BRANCH CONTROLLER, DION L 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 06/21/2013 MADL BRANCH CONTROLLER, DION L 799.2 anxiety 06/21/2013 LOCKETT DO, SHANNA K 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 06/21/2013 LOCKETT DO, SHANNA K 799.2 anxiety 06/21/2013 LOCKETT DO, SHANNA K 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 06/21/2013 LOCKETT DO, SHANNA K 799.2 anxiety 06/21/2013 MADL BRANCH CONTROLLER, DION L 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 06/21/2013 MADL BRANCH CONTROLLER, DION L 799.2 anxiety 06/21/2013 MADL BRANCH CONTROLLER, DION L 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 06/21/2013 MADL BRANCH CONTROLLER, IDON L 799.2 anxiety 06/21/2013 MADL BRANCH CONTROLLER, DION L 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 06/21/2013 MADL BRANCH CONTROLLER, DION L 799.2 anxiety 06/21/2013 LOCKETT DO, SHANNA K 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 06/21/2013 LOCKETT DO, SHANNA K 799.2 anxiety 06/21/2013 MADL BRANCH CONTROLLER, DION L 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 06/21/2013 MADL BRANCH CONTROLLER, DION L 799.2 anxiety 06/21/2013 MADL BRANCH CONTROLLER, DION L 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 06/21/2013 MADL BRANCH CONTROLLER, DION L 799.2 anxiety 06/21/2013 MADL BRANCH CONTROLLER, DION L 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 06/21/2013 MADL BRANCH CONTROLLER, DION L 799.2 anxiety 06/21/2013 MADL BRANCH CONTROLLER, DION L 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 06/21/2013 MADL BRANCH CONTROLLER, DION L 799.2 anxiety 06/21/2013 MADL BRANCH CONTROLLER, DION L 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 06/21/2013 MADL BRANCH CONTROLLER, DION L 799.2 anxiety 06/21/2013 MADL BRANCH CONTROLLER, DION L 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 06/21/2013 MADL BRANCH CONTROLLER, DION L 799.2 anxiety 06/21/2013 MADL BRANCH CONTROLLER, DION L 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 06/21/2013 MADL BRANCH CONTROLLER, DION L 799.2 anxiety 06/21/2013 MADL BRANCH CONTROLLER, DION L 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 06/21/2013 MADL BRANCH CONTROLLER, DION L 799.2 anxiety 06/21/2013 MADL BRANCH CONTROLLER, DION L 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 06/21/2013 MADL BRANCH CONTROLLER, DION L 799.2 anxiety 06/21/2013 LOCKETT DO, SHANNA K 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 06/21/2013 LOCKETT DO, SHANNA K 799.2 anxiety 06/21/2013 CASTELLANO BRANCH CONTROLLER, BARRY R 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 06/21/2013 CASTELLANO BRANCH CONTROLLER, BARRY R 799.2 anxiety 06/21/2013 LOCKETT DO, SHANNA K 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 06/21/2013 SHANNA LOCKETT DO 799.2 anxiety 07/18/2013 LOCKETT SHANNA CARRANZA K V04.81 FLU SHOT 07/18/2013 NÉSTOR MOREIRA, BINDU Hidalgo V04.81 FLU SHOT 07/18/2013 SHELBI BRANCH CONTROLLER, CARLINE S V04.81 FLU SHOT 07/18/2013 SHELBI BRANCH CONTROLLER, CARLINE S V04.81 FLU SHOT 07/18/2013 SABRINA MOREIRA, LAURA V04.81 FLU SHOT 07/18/2013 LOBITO MOREIRA, ELIZABETH Hale V04.81 FLU SHOT 07/18/2013 SABRINA MOREIRA, LAURA V04.81 FLU SHOT 07/18/2013 SHANNA LOCKETT DO V04.81 FLU SHOT 07/18/2013 JAYLENE CASHUMM BRANCH CONTROLLER, MARTÍNEZ N V04.81 FLU SHOT 07/18/2013 BINDU PALM MD V04.81 FLU SHOT 07/18/2013 JAYLENE PURDY BRANCH CONTROLLER, MARTÍNEZ N V04.81 FLU SHOT 07/18/2013 ANNEL JJ APRN V04.81 FLU SHOT 07/18/2013 MADL BRANCH CONTROLLER, DION L V04.81 FLU SHOT 07/18/2013 LAURA BENNETT MD V04.81 FLU SHOT 07/18/2013 MADL BRANCH CONTROLLER, DION L V04.81 FLU SHOT 07/18/2013 LOCKETT DOSHANNA K V04.81 FLU SHOT 07/18/2013 LOCKETT DOSHANNA K V04.81 FLU SHOT 07/18/2013 MADL BRANCH CONTROLLER, DION L V04.81 FLU SHOT 07/18/2013 MADL BRANCH CONTROLLER, DION L V04.81 FLU SHOT 07/18/2013 MADL BRANCH CONTROLLER, DION L V04.81 FLU SHOT 07/18/2013 LOCKETT DOSHANNA K V04.81 FLU SHOT 07/18/2013 MADL BRANCH CONTROLLER, DION L V04.81 FLU SHOT 07/18/2013 MADL BRANCH CONTROLLER, DION L V04.81 FLU SHOT 07/18/2013 MADL BRANCH CONTROLLER, DION L V04.81 FLU SHOT 07/18/2013 MADL BRANCH CONTROLLER, DION L V04.81 FLU SHOT 07/18/2013 MADL BRANCH CONTROLLER, DION L V04.81 FLU SHOT 07/18/2013 MADL BRANCH CONTROLLER, DION L V04.81 FLU SHOT 07/18/2013 MADL BRANCH CONTROLLER, DION L V04.81 FLU SHOT 07/18/2013 MADL BRANCH CONTROLLER, DION L V04.81 FLU SHOT 07/18/2013 MADL BRANCH CONTROLLER, DION L V04.81 FLU SHOT 07/18/2013 LOCKETT DO, SHANNA K V04.81 FLU SHOT 07/18/2013 CASTELLANO BRANCH CONTROLLER, BARRY R V04.81 FLU SHOT 07/18/2013 LOCKETT DO, SHANNA K V04.81 FLU SHOT 09/07/2013 SHELBI BRANCH CONTROLLER, CARLINE S 216.9 MOLE/NEVUS - SITE UNSPECIFIED 09/07/2013 SHELBI BRANCH CONTROLLER, CARLINE S 511.0 PLEURISY NOS 09/07/2013 SHELBI BRANCH CONTROLLER, CARLINE S 216.9 MOLE/NEVUS - SITE UNSPECIFIED 09/07/2013 SHELBI BRANCH CONTROLLER, CARLINE S 511.0 PLEURISY NOS 09/07/2013 LAURA BENNETT MD 216.9 MOLE/NEVUS - SITE UNSPECIFIED 09/07/2013 LAURA BENNETT MD 511.0 PLEURISY NOS 09/07/2013 LOBITO MOREIRA, ELIZABETH Hale 216.9 MOLE/NEVUS - SITE UNSPECIFIED 09/07/2013 LOBITO MOREIRA, ELIZABETH N 511.0 PLEURISY NOS 09/07/2013 LAURA BENNETT MD 216.9 MOLE/NEVUS - SITE UNSPECIFIED 09/07/2013 LAURA BENNETT MD 511.0 PLEURISY NOS 09/07/2013 LOCKETT DO, SHANNA K 216.9 MOLE/NEVUS - SITE UNSPECIFIED 09/07/2013 LOCKETT DO, SHANNA K 511.0 PLEURISY NOS 09/07/2013 JAYLENE PURDY BRANCH CONTROLLER, MARTÍNEZ N 216.9 MOLE/NEVUS - SITE UNSPECIFIED 09/07/2013 JAYLENE PURDY BRANCH CONTROLLER, MARTÍNEZ N 511.0 PLEURISY NOS 09/07/2013 BINDU PALM MD 216.9 MOLE/NEVUS - SITE UNSPECIFIED 09/07/2013 BINDU PALM MD 511.0 PLEURISY NOS 09/07/2013 MARIEE CASHERO BRANCH CONTROLLER, MARTÍNEZ N 216.9 MOLE/NEVUS - SITE UNSPECIFIED 09/07/2013 MARIEE CASHERO BRANCH CONTROLLER, MARTÍNEZ N 511.0 PLEURISY NOS 09/07/2013 JJ BRANCH CONTROLLER, ANNEL FRANCES 216.9 MOLE/NEVUS - SITE UNSPECIFIED 09/07/2013 JJ BRANCH CONTROLLER, ANNEL FRANCES 511.0 PLEURISY NOS 09/07/2013 MADL BRANCH CONTROLLER, DION L 216.9 MOLE/NEVUS - SITE UNSPECIFIED 09/07/2013 MADL BRANCH CONTROLLER, DION L 511.0 PLEURISY NOS 09/07/2013 LAURA BENNETT MD 216.9 MOLE/NEVUS - SITE UNSPECIFIED 09/07/2013 LAURA BENNETT MD 511.0 PLEURISY NOS 09/07/2013 MADL BRANCH CONTROLLER, DION L 216.9 MOLE/NEVUS - SITE UNSPECIFIED 09/07/2013 MADL BRANCH CONTROLLER, DION L 511.0 PLEURISY NOS 09/07/2013 LOCKETT DO, SHANNA K 216.9 MOLE/NEVUS - SITE UNSPECIFIED 09/07/2013 LOCKETT DO, SHANNA K 511.0 PLEURISY NOS 09/07/2013 LOCKETT DO, SHANNA K 216.9 MOLE/NEVUS - SITE UNSPECIFIED 09/07/2013 LOCKETT DO, SHANAN K 511.0 PLEURISY NOS 09/07/2013 MADL BRANCH CONTROLLER, DION L 216.9 MOLE/NEVUS - SITE UNSPECIFIED 09/07/2013 MADL BRANCH CONTROLLER, DION L 511.0 PLEURISY NOS 09/07/2013 MADL BRANCH CONTROLLER, DION L 216.9 MOLE/NEVUS - SITE UNSPECIFIED 09/07/2013 MADL BRANCH CONTROLLER, DION L 511.0 PLEURISY NOS 09/07/2013 MADL BRANCH CONTROLLER, DION L 216.9 MOLE/NEVUS - SITE UNSPECIFIED 09/07/2013 MADL BRANCH CONTROLLER, DION L 511.0 PLEURISY NOS 09/07/2013 LOCKETT DO, SHANNA K 216.9 MOLE/NEVUS - SITE UNSPECIFIED 09/07/2013 LOCKETT DO, SHANNA K 511.0 PLEURISY NOS 09/07/2013 MADL BRANCH CONTROLLER, DION L 216.9 MOLE/NEVUS - SITE UNSPECIFIED 09/07/2013 MADL BRANCH CONTROLLER, DION L 511.0 PLEURISY NOS 09/07/2013 MADL BRANCH CONTROLLER, DION L 216.9 MOLE/NEVUS - SITE UNSPECIFIED 09/07/2013 MADL BRANCH CONTROLLER, DION L 511.0 PLEURISY NOS 09/07/2013 MADL BRANCH CONTROLLER, DION L 216.9 MOLE/NEVUS - SITE UNSPECIFIED 09/07/2013 MADL BRANCH CONTROLLER, DION L 511.0 PLEURISY NOS 09/07/2013 MADL BRANCH CONTROLLER, DION L 216.9 MOLE/NEVUS - SITE UNSPECIFIED 09/07/2013 MADL BRANCH CONTROLLER, DION L 511.0 PLEURISY NOS 09/07/2013 MADL BRANCH CONTROLLER, DION L 216.9 MOLE/NEVUS - SITE UNSPECIFIED 09/07/2013 MADL BRANCH CONTROLLER, DION L 511.0 PLEURISY NOS 09/07/2013 MADL BRANCH CONTROLLER, DION L 216.9 MOLE/NEVUS - SITE UNSPECIFIED 09/07/2013 MADL BRANCH CONTROLLER, DION L 511.0 PLEURISY NOS 09/07/2013 MADL BRANCH CONTROLLER, DION L 216.9 MOLE/NEVUS - SITE UNSPECIFIED 09/07/2013 MADL BRANCH CONTROLLER, DION L 511.0 PLEURISY NOS 09/07/2013 MADL BRANCH CONTROLLER, DION L 216.9 MOLE/NEVUS - SITE UNSPECIFIED 09/07/2013 MADL BRANCH CONTROLLER, DION L 511.0 PLEURISY NOS 09/07/2013 MADL BRANCH CONTROLLER, DION L 216.9 MOLE/NEVUS - SITE UNSPECIFIED 09/07/2013 MADL BRANCH CONTROLLER, DION L 511.0 PLEURISY NOS 09/07/2013 LOCKETT DO, SHANNA K 216.9 MOLE/NEVUS - SITE UNSPECIFIED 09/07/2013 LOCKETT DO, SHANNA K 511.0 PLEURISY NOS 09/07/2013 GRAY BRANCH CONTROLLER, BARRY R 216.9 MOLE/NEVUS - SITE UNSPECIFIED 09/07/2013 GRAY DEL TORO BARRY R 511.0 PLEURISY NOS 09/07/2013 LOCKETT DO, SHANNA K 216.9 MOLE/NEVUS - SITE UNSPECIFIED 09/07/2013 LOCKETT DO, SHANNA K 511.0 PLEURISY NOS 09/16/2013 JOHN KILPATRICK BRANCH CONTROLLER Ot 491.21 OBSTR CHRONIC BRONCHITIS, W (ACUTE) EXAC 09/16/2013 JOHN KILPATRICK BRANCH CONTROLLER Ot 786.05 SHORTNESS OF BREATH 09/20/2013 JOHN KILPATRICK BRANCH CONTROLLER Ot 496 CHR AIRWAY OBSTRUCT NEC 09/20/2013 JOHN KILPATRICK BRANCH CONTROLLER Ot 786.05 SHORTNESS OF BREATH 09/29/2013 ELIZABETH ROBIN MD Ot 278.00 OBESITY, NOS 09/29/2013 ELIZABETH ROBIN MD Ot 288.60 LEUKOCYTOSIS, UNSPECIFIED 09/29/2013 ELIZABETH ROBIN MD Ot 300.00 ANXIETY STATE NOS 09/29/2013 ELIZABETH ROBIN MD Ot 327.23 OBSTRUCTIVE SLEEP APNEA (ADULT) (PEDIATR 09/29/2013 ELIZABETH ROBIN MD Ot 491.21 OBSTR CHRONIC BRONCHITIS, W (ACUTE) EXAC 09/29/2013 ELIZABETH ROBIN MD Ot 790.29 OTHER ABNORMAL GLUCOSE 09/29/2013 ELIZABETH ROBIN MD Ot E932.0 ADV EFF CORTICOSTEROIDS 09/29/2013 ELIZABETH ROBIN MD Ot V46.2 SUPPLEMENTAL OXYGEN 09/29/2013 ELIZABETH ROBIN MD Ot V85.38 BODY MASS INDEX 38.0-38.9, ADULT 10/02/2013 KJ MARIA ANTONIA CARRANZAA [place] Ot 491.21 OBSTR CHRONIC BRONCHITIS, W (ACUTE) EXAC 10/02/2013 MARIA ANTONIA UNDERWOOD DOA [place] Ot 786.05 SHORTNESS OF BREATH 10/09/2013 LAURA BENNETT MD Ot 053.9 HERPES ZOSTER NOS 10/09/2013 LAURA BENNETT MD Ot 278.00 OBESITY, NOS 10/09/2013 LAURA BENNETT MD Ot 288.60 LEUKOCYTOSIS, UNSPECIFIED 10/09/2013 LAURA BENNETT MD Ot 300.00 ANXIETY STATE NOS 10/09/2013 LAURA BENNETT MD Ot 311 DEPRESSIVE DISORDER NEC 10/09/2013 LAURA BENNETT MD Ot 327.23 OBSTRUCTIVE SLEEP APNEA (ADULT) (PEDIATR 10/09/2013 LAURA BENNETT MD Ot 491.21 OBSTR CHRONIC BRONCHITIS, W (ACUTE) EXAC 10/09/2013 LAURA BENNETT MD Ot 518.84 ACUTE AND CHRONIC RESPIRATORY FAILURE 10/09/2013 LAURA BENNETT MD Ot 530.81 ESOPHAGEAL REFLUX 10/09/2013 LAURA BENNETT MD Ot 799.3 DEBILITY NOS 10/09/2013 LAURA BENNETT MD Ot E932.0 ADV EFF CORTICOSTEROIDS 10/09/2013 LAURA BENNETT MD Ot V15.82 HISTORY OF TOBACCO USE 10/09/2013 LAURA BENNETT MD Ot V85.38 BODY MASS INDEX 38.0-38.9, ADULT 10/28/2013 LAURA BENNETT MD Ot 038.9 SEPTICEMIA NOS 10/28/2013 LAURA BENNETT MD Ot 250.00 DIAB IDALMIS WO COMPL, TYPE II OR UNSPEC TY 10/28/2013 LAURA BENNETT MD Ot 278.00 OBESITY, NOS 10/28/2013 LAURA BENNETT MD Ot 300.00 ANXIETY STATE NOS 10/28/2013 LAURA BENNETT MD Ot 305.1 TOBACCO USE DISORDER 10/28/2013 LAURA BENNETT MD Ot 486 PNEUMONIA, ORGANISM NOS 10/28/2013 LAURA BENNETT MD Ot 491.21 OBSTR CHRONIC BRONCHITIS, W (ACUTE) EXAC 10/28/2013 LAURA BENNETT MD Ot 518.84 ACUTE AND CHRONIC RESPIRATORY FAILURE 10/28/2013 LAURA BENNETT MD Ot 799.3 DEBILITY NOS 10/28/2013 LAURA BENNETT MD Ot 995.92 SEVERE SEPSIS 10/28/2013 LAURA BENNETT MD Ot V46.2 SUPPLEMENTAL OXYGEN 10/28/2013 LAURA BENNETT MD Ot V58.65 LONG-TERM(CURRENT)USE OF STEROIDS 10/28/2013 LAURA BENNETT MD Ot V85.41 BODY MASS INDEX 40.0-44.9, ADULT 12/26/2013 MARTÍNEZ MARY APRN N 112.0 CANDIDIASIS OF MOUTH 12/26/2013 MARTÍNEZ MARY APRN N 719.41 PAIN IN JOINT INVOLVING SHOULDER REGION 12/26/2013 MARTÍNEZ MARY APRN N 729.5 PAIN IN LIMB 12/26/2013 ANNEL JJ APRN 112.0 CANDIDIASIS OF MOUTH 12/26/2013 ANNEL JJ APRN 719.41 PAIN IN JOINT INVOLVING SHOULDER REGION 12/26/2013 ANNEL JJ APRN 729.5 PAIN IN LIMB 12/26/2013 MADL BRANCH CONTROLLER, DION L 112.0 CANDIDIASIS OF MOUTH 12/26/2013 MADL BRANCH CONTROLLER DION L 719.41 PAIN IN JOINT INVOLVING SHOULDER REGION 12/26/2013 BRITTANY DEL TORO DION L 729.5 PAIN IN LIMB 12/26/2013 LAURA BENNETT MD 112.0 CANDIDIASIS OF MOUTH 12/26/2013 LAURA BENNETT MD 719.41 PAIN IN JOINT INVOLVING SHOULDER REGION 12/26/2013 LAURA BENNETT MD 729.5 PAIN IN LIMB 12/26/2013 MADL BRANCH CONTROLLER, DION L 112.0 CANDIDIASIS OF MOUTH 12/26/2013 BIRDIEL BRANCH CONTROLLER, DION L 719.41 PAIN IN JOINT INVOLVING SHOULDER REGION 12/26/2013 BIRDIEL BRANCH CONTROLLER, DION L 729.5 PAIN IN LIMB 12/26/2013 LOCKETT DO, SHANNA K 112.0 CANDIDIASIS OF MOUTH 12/26/2013 LOCKETT DO, SHANNA K 719.41 PAIN IN JOINT INVOLVING SHOULDER REGION 12/26/2013 LOCKETT DO, SHANNA K 729.5 PAIN IN LIMB 12/26/2013 LOCKETT DO, SHANNA K 112.0 CANDIDIASIS OF MOUTH 12/26/2013 LOCKETT DO, SHANNA K 719.41 PAIN IN JOINT INVOLVING SHOULDER REGION 12/26/2013 LOCKETT DO, SHANNA K 729.5 PAIN IN LIMB 12/26/2013 MADL BRANCH CONTROLLER, DION L 112.0 CANDIDIASIS OF MOUTH 12/26/2013 MADL BRANCH CONTROLLER, DION L 719.41 PAIN IN JOINT INVOLVING SHOULDER REGION 12/26/2013 MADL BRANCH CONTROLLER, DION L 729.5 PAIN IN LIMB 12/26/2013 MADL BRANCH CONTROLLER, DION L 112.0 CANDIDIASIS OF MOUTH 12/26/2013 MADL BRANCH CONTROLLER, DION L 719.41 PAIN IN JOINT INVOLVING SHOULDER REGION 12/26/2013 MADL BRANCH CONTROLLER, DION L 729.5 PAIN IN LIMB 12/26/2013 MADL BRANCH CONTROLLER, DION L 112.0 CANDIDIASIS OF MOUTH 12/26/2013 MADL BRANCH CONTROLLER, DION L 719.41 PAIN IN JOINT INVOLVING SHOULDER REGION 12/26/2013 MADL BRANCH CONTROLLER, DION L 729.5 PAIN IN LIMB 12/26/2013 LOCKETT DO, SHANNA K 112.0 CANDIDIASIS OF MOUTH 12/26/2013 LOCKETT DO, SHANNA K 719.41 PAIN IN JOINT INVOLVING SHOULDER REGION 12/26/2013 LOCKETT DO, SHANNA K 729.5 PAIN IN LIMB 12/26/2013 MADL BRANCH CONTROLLER, DION L 112.0 CANDIDIASIS OF MOUTH 12/26/2013 MADL BRANCH CONTROLLER, DION L 719.41 PAIN IN JOINT INVOLVING SHOULDER REGION 12/26/2013 MADL BRANCH CONTROLLER, DION L 729.5 PAIN IN LIMB 12/26/2013 MADL BRANCH CONTROLLER, DION L 112.0 CANDIDIASIS OF MOUTH 12/26/2013 MADL BRANCH CONTROLLER, DION L 719.41 PAIN IN JOINT INVOLVING SHOULDER REGION 12/26/2013 MADL BRANCH CONTROLLER, DION L 729.5 PAIN IN LIMB 12/26/2013 MADL BRANCH CONTROLLER, DION L 112.0 CANDIDIASIS OF MOUTH 12/26/2013 MADL BRANCH CONTROLLER, DION L 719.41 PAIN IN JOINT INVOLVING SHOULDER REGION 12/26/2013 MADL BRANCH CONTROLLER, DION L 729.5 PAIN IN LIMB 12/26/2013 MADL BRANCH CONTROLLER, DION L 112.0 CANDIDIASIS OF MOUTH 12/26/2013 MADL BRANCH CONTROLLER, DION L 719.41 PAIN IN JOINT INVOLVING SHOULDER REGION 12/26/2013 MADL BRANCH CONTROLLER, DION L 729.5 PAIN IN LIMB 12/26/2013 MADL BRANCH CONTROLLER, DION L 112.0 CANDIDIASIS OF MOUTH 12/26/2013 MADL BRANCH CONTROLLER, DION L 719.41 PAIN IN JOINT INVOLVING SHOULDER REGION 12/26/2013 MADL BRANCH CONTROLLER, DION L 729.5 PAIN IN LIMB 12/26/2013 MADL BRANCH CONTROLLER, DION L 112.0 CANDIDIASIS OF MOUTH 12/26/2013 MADL BRANCH CONTROLLER, DION L 719.41 PAIN IN JOINT INVOLVING SHOULDER REGION 12/26/2013 MADL BRANCH CONTROLLER, DION L 729.5 PAIN IN LIMB 12/26/2013 MADL BRANCH CONTROLLER, DION L 112.0 CANDIDIASIS OF MOUTH 12/26/2013 MADL BRANCH CONTROLLER, DION L 719.41 PAIN IN JOINT INVOLVING SHOULDER REGION 12/26/2013 MADL BRANCH CONTROLLER, DION L 729.5 PAIN IN LIMB 12/26/2013 MADL BRANCH CONTROLLER, DION L 112.0 CANDIDIASIS OF MOUTH 12/26/2013 MADL BRANCH CONTROLLER, DION L 719.41 PAIN IN JOINT INVOLVING SHOULDER REGION 12/26/2013 MADL BRANCH CONTROLLER, DION L 729.5 PAIN IN LIMB 12/26/2013 MADL BRANCH CONTROLLER, DION L 112.0 CANDIDIASIS OF MOUTH 12/26/2013 MADL BRANCH CONTROLLER, DION L 719.41 PAIN IN JOINT INVOLVING SHOULDER REGION 12/26/2013 MADL BRANCH CONTROLLER, DION L 729.5 PAIN IN LIMB 12/26/2013 LOCKETT DO SHANNA K 112.0 CANDIDIASIS OF MOUTH 12/26/2013 LOCKETT DO SHANNA K 719.41 PAIN IN JOINT INVOLVING SHOULDER REGION 12/26/2013 LOCKETT DO SHANNA K 729.5 PAIN IN LIMB 12/26/2013 RENO CASTELLANO APRNIA R 112.0 CANDIDIASIS OF MOUTH 12/26/2013 RENO CASTELLANO APRNIA R 719.41 PAIN IN JOINT INVOLVING SHOULDER REGION 12/26/2013 JACKELINE CASTELLANO APRNRICIA R 729.5 PAIN IN LIMB 12/26/2013 LOCKETT DO SHANNA K 112.0 CANDIDIASIS OF MOUTH 12/26/2013 LOCKETT DO SHANNA K 719.41 PAIN IN JOINT INVOLVING SHOULDER REGION 12/26/2013 LOCKETT DO SHANNA K 729.5 PAIN IN LIMB 02/13/2014 CHRISTELLE UNDERWOOD DO Ot 112.0 THRUSH 02/13/2014 CHRISTELLE UNDERWOOD DO Ot 300.00 ANXIETY STATE NOS 02/13/2014 CHRISTELLE UNDERWOOD DO Ot 491.21 OBSTR CHRONIC BRONCHITIS, W (ACUTE) EXAC 02/13/2014 KJ DO CHRISTELLE [place] Ot 786.05 SHORTNESS OF BREATH 03/22/2014 BINDU PALM MD Ot 305.1 TOBACCO USE DISORDER 03/22/2014 BINDU PALM MD Ot 491.21 OBSTR CHRONIC BRONCHITIS, W (ACUTE) EXAC 03/22/2014 BINDU PALM MD Ot V15.81 HX OF PAST NONCOMPLIANCE 03/30/2014 SHANNA LOCKETT DO Ot 278.00 OBESITY, NOS 03/30/2014 GRANT LOCKETT DOA K Ot 300.00 ANXIETY STATE NOS 03/30/2014 LEVY CARRANZA SHANNA K Ot 305.1 TOBACCO USE DISORDER 03/30/2014 GRANT LOCKETT DOA K Ot 491.21 OBSTR CHRONIC BRONCHITIS, W (ACUTE) EXAC 03/30/2014 GRANT LOCKETT DOA K Ot 518.84 ACUTE AND CHRONIC RESPIRATORY FAILURE 03/30/2014 SHANNA LOCKETT DO Ot V46.2 SUPPLEMENTAL OXYGEN 03/30/2014 SHANNA LOCKETT DO Ot V85.41 BODY MASS INDEX 40.0-44.9, ADULT 04/09/2014 DION SOTO APRN 250.02 DIABETES MELLITUS WITHOUT MENTION OF COMPLICATION TYPE II OR UNSPECIFIED TYPE UNCONTROLLED 04/09/2014 DION SOTO APRN 250.80 DIABETES WITH OTHER SPECIFIED MANIFESTATIONS TYPE II OR UNSPECIFIED TYPE NOT STATED UNCONTROLLED 04/09/2014 LAURA BENNETT MD 250.02 DIABETES MELLITUS WITHOUT MENTION OF COMPLICATION TYPE II OR UNSPECIFIED TYPE UNCONTROLLED 04/09/2014 LAURA BENNETT MD 250.80 DIABETES WITH OTHER SPECIFIED MANIFESTATIONS TYPE II OR UNSPECIFIED TYPE NOT STATED UNCONTROLLED 04/09/2014 DION SOTO APRN 250.02 DIABETES MELLITUS WITHOUT MENTION OF COMPLICATION TYPE II OR UNSPECIFIED TYPE UNCONTROLLED 04/09/2014 DION SOTO APRN 250.80 DIABETES WITH OTHER SPECIFIED MANIFESTATIONS TYPE II OR UNSPECIFIED TYPE NOT STATED UNCONTROLLED 04/09/2014 SHANNA LOCKETT DO 250.02 DIABETES MELLITUS WITHOUT MENTION OF COMPLICATION TYPE II OR UNSPECIFIED TYPE UNCONTROLLED 04/09/2014 SHANNA LOCKETT DO K 250.80 DIABETES WITH OTHER SPECIFIED MANIFESTATIONS TYPE II OR UNSPECIFIED TYPE NOT STATED UNCONTROLLED 04/09/2014 LOCKETT DO, SHANNA K 250.02 DIABETES MELLITUS WITHOUT MENTION OF COMPLICATION TYPE II OR UNSPECIFIED TYPE UNCONTROLLED 04/09/2014 SHANNA LOCKETT DO K 250.80 DIABETES WITH OTHER SPECIFIED MANIFESTATIONS TYPE II OR UNSPECIFIED TYPE NOT STATED UNCONTROLLED 04/09/2014 MADL BRANCH CONTROLLER, DION L 250.02 DIABETES MELLITUS WITHOUT MENTION OF COMPLICATION TYPE II OR UNSPECIFIED TYPE UNCONTROLLED 04/09/2014 MADL BRANCH CONTROLLER, DION L 250.80 DIABETES WITH OTHER SPECIFIED MANIFESTATIONS TYPE II OR UNSPECIFIED TYPE NOT STATED UNCONTROLLED 04/09/2014 MADL BRANCH CONTROLLER, DION L 250.02 DIABETES MELLITUS WITHOUT MENTION OF COMPLICATION TYPE II OR UNSPECIFIED TYPE UNCONTROLLED 04/09/2014 MADL BRANCH CONTROLLER, DION L 250.80 DIABETES WITH OTHER SPECIFIED MANIFESTATIONS TYPE II OR UNSPECIFIED TYPE NOT STATED UNCONTROLLED 04/09/2014 MADL BRANCH CONTROLLER, DION L 250.02 DIABETES MELLITUS WITHOUT MENTION OF COMPLICATION TYPE II OR UNSPECIFIED TYPE UNCONTROLLED 04/09/2014 MADL BRANCH CONTROLLER, DION L 250.80 DIABETES WITH OTHER SPECIFIED MANIFESTATIONS TYPE II OR UNSPECIFIED TYPE NOT STATED UNCONTROLLED 04/09/2014 SHANNA LOCKETT DO K 250.02 DIABETES MELLITUS WITHOUT MENTION OF COMPLICATION TYPE II OR UNSPECIFIED TYPE UNCONTROLLED 04/09/2014 SHANNA LOCKETT DO K 250.80 DIABETES WITH OTHER SPECIFIED MANIFESTATIONS TYPE II OR UNSPECIFIED TYPE NOT STATED UNCONTROLLED 04/09/2014 MADL BRANCH CONTROLLER, DION L 250.02 DIABETES MELLITUS WITHOUT MENTION OF COMPLICATION TYPE II OR UNSPECIFIED TYPE UNCONTROLLED 04/09/2014 MADL BRANCH CONTROLLER, DION L 250.80 DIABETES WITH OTHER SPECIFIED MANIFESTATIONS TYPE II OR UNSPECIFIED TYPE NOT STATED UNCONTROLLED 04/09/2014 MADL BRANCH CONTROLLER, DION L 250.02 DIABETES MELLITUS WITHOUT MENTION OF COMPLICATION TYPE II OR UNSPECIFIED TYPE UNCONTROLLED 04/09/2014 MADL BRANCH CONTROLLER, DION L 250.80 DIABETES WITH OTHER SPECIFIED MANIFESTATIONS TYPE II OR UNSPECIFIED TYPE NOT STATED UNCONTROLLED 04/09/2014 MADL BRANCH CONTROLLER, DION L 250.02 DIABETES MELLITUS WITHOUT MENTION OF COMPLICATION TYPE II OR UNSPECIFIED TYPE UNCONTROLLED 04/09/2014 MADL BRANCH CONTROLLER, DION L 250.80 DIABETES WITH OTHER SPECIFIED MANIFESTATIONS TYPE II OR UNSPECIFIED TYPE NOT STATED UNCONTROLLED 04/09/2014 MADL BRANCH CONTROLLER, DION L 250.02 DIABETES MELLITUS WITHOUT MENTION OF COMPLICATION TYPE II OR UNSPECIFIED TYPE UNCONTROLLED 04/09/2014 MADL BRANCH CONTROLLER, DION L 250.80 DIABETES WITH OTHER SPECIFIED MANIFESTATIONS TYPE II OR UNSPECIFIED TYPE NOT STATED UNCONTROLLED 04/09/2014 MADL BRANCH CONTROLLER, DION L 250.02 DIABETES MELLITUS WITHOUT MENTION OF COMPLICATION TYPE II OR UNSPECIFIED TYPE UNCONTROLLED 04/09/2014 MADL BRANCH CONTROLLER, DION L 250.80 DIABETES WITH OTHER SPECIFIED MANIFESTATIONS TYPE II OR UNSPECIFIED TYPE NOT STATED UNCONTROLLED 04/09/2014 MADL BRANCH CONTROLLER, DION L 250.02 DIABETES MELLITUS WITHOUT MENTION OF COMPLICATION TYPE II OR UNSPECIFIED TYPE UNCONTROLLED 04/09/2014 MADL BRANCH CONTROLLER, DION L 250.80 DIABETES WITH OTHER SPECIFIED MANIFESTATIONS TYPE II OR UNSPECIFIED TYPE NOT STATED UNCONTROLLED 04/09/2014 MADL BRANCH CONTROLLER, DION L 250.02 DIABETES MELLITUS WITHOUT MENTION OF COMPLICATION TYPE II OR UNSPECIFIED TYPE UNCONTROLLED 04/09/2014 MADL BRANCH CONTROLLER, DION L 250.80 DIABETES WITH OTHER SPECIFIED MANIFESTATIONS TYPE II OR UNSPECIFIED TYPE NOT STATED UNCONTROLLED 04/09/2014 MADL BRANCH CONTROLLER, DION L 250.02 DIABETES MELLITUS WITHOUT MENTION OF COMPLICATION TYPE II OR UNSPECIFIED TYPE UNCONTROLLED 04/09/2014 MADL BRANCH CONTROLLER, DION L 250.80 DIABETES WITH OTHER SPECIFIED MANIFESTATIONS TYPE II OR UNSPECIFIED TYPE NOT STATED UNCONTROLLED 04/09/2014 MADL BRANCH CONTROLLER, DION L 250.02 DIABETES MELLITUS WITHOUT MENTION OF COMPLICATION TYPE II OR UNSPECIFIED TYPE UNCONTROLLED 04/09/2014 MAD BRANCH CONTROLLER, DION L 250.80 DIABETES WITH OTHER SPECIFIED MANIFESTATIONS TYPE II OR UNSPECIFIED TYPE NOT STATED UNCONTROLLED 04/09/2014 SHANNA LOCKETT DO K 250.02 DIABETES MELLITUS WITHOUT MENTION OF COMPLICATION TYPE II OR UNSPECIFIED TYPE UNCONTROLLED 04/09/2014 SHANNA LOCKETT DO K 250.80 DIABETES WITH OTHER SPECIFIED MANIFESTATIONS TYPE II OR UNSPECIFIED TYPE NOT STATED UNCONTROLLED 04/09/2014 BARRY CASTELLANO APRN R 250.02 DIABETES MELLITUS WITHOUT MENTION OF COMPLICATION TYPE II OR UNSPECIFIED TYPE UNCONTROLLED 04/09/2014 BARRY CASTELLANO APRN R 250.80 DIABETES WITH OTHER SPECIFIED MANIFESTATIONS TYPE II OR UNSPECIFIED TYPE NOT STATED UNCONTROLLED 04/09/2014 SHANNA LOCKETT DO K 250.02 DIABETES MELLITUS WITHOUT MENTION OF COMPLICATION TYPE II OR UNSPECIFIED TYPE UNCONTROLLED 04/09/2014 GRANT LOCKETT DOA K 250.80 DIABETES WITH OTHER SPECIFIED MANIFESTATIONS TYPE II OR UNSPECIFIED TYPE NOT STATED UNCONTROLLED 04/29/2014 CARL PARKER Ot 110.4 DERMATOPHYTOSIS OF FOOT 04/29/2014 CARL PARKER Ot 278.00 OBESITY, NOS 04/29/2014 CARL PARKER Ot 300.00 ANXIETY STATE NOS 04/29/2014 CARL PARKER Ot 305.1 TOBACCO USE DISORDER 04/29/2014 CARL PARKER Ot 311 DEPRESSIVE DISORDER NEC 04/29/2014 CARL PARKER Ot 486 PNEUMONIA, ORGANISM NOS 04/29/2014 CARL PARKER Ot 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, W (ACUTE) EX 04/29/2014 CARL PARKER Ot 528.2 ORAL APHTHAE 04/29/2014 CARL PARKER Ot 724.5 BACKACHE NOS 04/29/2014 CARL PARKER Ot 782.3 EDEMA 04/29/2014 CARL PARKER Ot 786.05 SHORTNESS OF BREATH 04/29/2014 CARL PARKER Ot 788.1 DYSURIA 04/29/2014 CARL PARKER Ot 789.00 ABDOMINAL PAIN, UNSPECIFIED SITE 04/29/2014 CARL PARKER Ot V15.81 HX OF PAST NONCOMPLIANCE 04/29/2014 CARL PARKER Ot V46.2 SUPPLEMENTAL OXYGEN 04/29/2014 CARL PARKER Ot V58.62 ENCOUNT FOR LONG-TERM(CURRENT) USE OF AN 04/29/2014 CARL PARKER Ot V58.65 LONG-TERM(CURRENT)USE OF STEROIDS 04/29/2014 CARL PARKER Ot V58.69 OTH MED,LT,CURRENT USE 04/29/2014 CARL PARKER Ot V85.41 BODY MASS INDEX 40.0-44.9, ADULT 07/09/2014 SHANNA LOCKETT DO Ot 300.00 ANXIETY STATE NOS 07/09/2014 SHANNA LOCKETT DO Ot 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8 OTHER SPECIFIED LOCAL INFECTIONS OF SKIN AND SUBCUTANEOUS TISSUE 07/23/2014 SHANNA LOCKETT DO K 787.1 HEARTBURN 07/23/2014 MADL BRANCH CONTROLLER, DION L 686.8 OTHER SPECIFIED LOCAL INFECTIONS OF SKIN AND SUBCUTANEOUS TISSUE 07/23/2014 MADL BRANCH CONTROLLER, DION L 787.1 HEARTBURN 07/23/2014 MADL BRANCH CONTROLLER, DION L 686.8 OTHER SPECIFIED LOCAL INFECTIONS OF SKIN AND SUBCUTANEOUS TISSUE 07/23/2014 MADL BRANCH CONTROLLER, DION L 787.1 HEARTBURN 07/23/2014 MADL BRANCH CONTROLLER, DION L 686.8 OTHER SPECIFIED LOCAL INFECTIONS OF SKIN AND SUBCUTANEOUS TISSUE 07/23/2014 MADL BRANCH CONTROLLER, DION L 787.1 HEARTBURN 07/23/2014 MADL BRANCH CONTROLLER, DION L 686.8 OTHER SPECIFIED LOCAL INFECTIONS OF SKIN AND SUBCUTANEOUS TISSUE 07/23/2014 MADL BRANCH CONTROLLER, DION L 787.1 HEARTBURN 07/23/2014 MADL BRANCH CONTROLLER, DION L 686.8 OTHER SPECIFIED LOCAL INFECTIONS OF SKIN AND SUBCUTANEOUS TISSUE 07/23/2014 MADL BRANCH CONTROLLER, DION L 787.1 HEARTBURN 07/23/2014 MADL BRANCH CONTROLLER, DION L 686.8 OTHER SPECIFIED LOCAL INFECTIONS OF SKIN AND SUBCUTANEOUS TISSUE 07/23/2014 MADL BRANCH CONTROLLER, DION L 787.1 HEARTBURN 07/23/2014 MADL BRANCH CONTROLLER, DION L 686.8 OTHER SPECIFIED LOCAL INFECTIONS OF SKIN AND SUBCUTANEOUS TISSUE 07/23/2014 MADL BRANCH CONTROLLER, DION L 787.1 HEARTBURN 07/23/2014 MADL BRANCH CONTROLLER, DION L 686.8 OTHER SPECIFIED LOCAL INFECTIONS OF SKIN AND SUBCUTANEOUS TISSUE 07/23/2014 MADL BRANCH CONTROLLER, DION L 787.1 HEARTBURN 07/23/2014 MADL BRANCH CONTROLLER, DION L 686.8 OTHER SPECIFIED LOCAL INFECTIONS OF SKIN AND SUBCUTANEOUS TISSUE 07/23/2014 MADL BRANCH CONTROLLER, DION L 787.1 HEARTBURN 07/23/2014 LOCKETT DO, SHANNA K 686.8 OTHER SPECIFIED LOCAL INFECTIONS OF SKIN AND SUBCUTANEOUS TISSUE 07/23/2014 LOCKETT DO, SHANNA K 787.1 HEARTBURN 07/23/2014 CASTELLANO BRANCH CONTROLLER, BARRY R 686.8 OTHER SPECIFIED LOCAL INFECTIONS OF SKIN AND SUBCUTANEOUS TISSUE 07/23/2014 CASTELLANO KATEY BARRY R 787.1 HEARTBURN 07/23/2014 LOCKETT DO, SHANNA K 686.8 OTHER SPECIFIED LOCAL INFECTIONS OF SKIN AND SUBCUTANEOUS TISSUE 07/23/2014 LOCKETT DO, SHANNA K 787.1 HEARTBURN 08/02/2014 MADL BRANCH CONTROLLER, DION L 381.01 ACUTE SEROUS OTITIS MEDIA 08/02/2014 MADL BRANCH CONTROLLER, DION L 528.9 OTHER AND UNSPECIFIED DISEASES OF THE ORAL SOFT TISSUES 08/02/2014 MADL BRANCH CONTROLLER, DION L V04.81 FLU SHOT 08/02/2014 MADL BRANCH CONTROLLER, DION L 381.01 ACUTE SEROUS OTITIS MEDIA 08/02/2014 MADL BRANCH CONTROLLER, DION L 528.9 OTHER AND UNSPECIFIED DISEASES OF THE ORAL SOFT TISSUES 08/02/2014 MADL BRANCH CONTROLLER, DION L V04.81 FLU SHOT 08/02/2014 MADL BRANCH CONTROLLER, DION L 381.01 ACUTE SEROUS OTITIS MEDIA 08/02/2014 MADL BRANCH CONTROLLER, DION L 528.9 OTHER AND UNSPECIFIED DISEASES OF THE ORAL SOFT TISSUES 08/02/2014 MADL BRANCH CONTROLLER, DION L V04.81 FLU SHOT 08/02/2014 MADL BRANCH CONTROLLER, DION L 381.01 ACUTE SEROUS OTITIS MEDIA 08/02/2014 MADL BRANCH CONTROLLER, DION L 528.9 OTHER AND UNSPECIFIED DISEASES OF THE ORAL SOFT TISSUES 08/02/2014 MADL BRANCH CONTROLLER, DION L V04.81 FLU SHOT 08/02/2014 MADL BRANCH CONTROLLER, DION L 381.01 ACUTE SEROUS OTITIS MEDIA 08/02/2014 MADL BRANCH CONTROLLER, DION L 528.9 OTHER AND UNSPECIFIED DISEASES OF THE ORAL SOFT TISSUES 08/02/2014 MADL BRANCH CONTROLLER, DION L V04.81 FLU SHOT 08/02/2014 MADL BRANCH CONTROLLER, DION L 381.01 ACUTE SEROUS OTITIS MEDIA 08/02/2014 MADL BRANCH CONTROLLER, DION L 528.9 OTHER AND UNSPECIFIED DISEASES OF THE ORAL SOFT TISSUES 08/02/2014 MADL BRANCH CONTROLLER, DION L V04.81 FLU SHOT 08/02/2014 MADL BRANCH CONTROLLER, DION L 381.01 ACUTE SEROUS OTITIS MEDIA 08/02/2014 MADL BRANCH CONTROLLER, DION L 528.9 OTHER AND UNSPECIFIED DISEASES OF THE ORAL SOFT TISSUES 08/02/2014 MADL BRANCH CONTROLLER, DION L V04.81 FLU SHOT 08/02/2014 MADL BRANCH CONTROLLER, DION L 381.01 ACUTE SEROUS OTITIS MEDIA 08/02/2014 MADL BRANCH CONTROLLER, DION L 528.9 OTHER AND UNSPECIFIED DISEASES OF THE ORAL SOFT TISSUES 08/02/2014 BIRDIEL BRANCH CONTROLLER, DION L V04.81 FLU SHOT 08/02/2014 BIRDIEL BRANCH CONTROLLER, DION L 381.01 ACUTE SEROUS OTITIS MEDIA 08/02/2014 MADL BRANCH CONTROLLER, DION L 528.9 OTHER AND UNSPECIFIED DISEASES OF THE ORAL SOFT TISSUES 08/02/2014 MADL BRANCH CONTROLLER, DION L V04.81 FLU SHOT 08/02/2014 LOCKETT DO, SHANNA K 381.01 ACUTE SEROUS OTITIS MEDIA 08/02/2014 LOCKETT DO SHANNA K 528.9 OTHER AND UNSPECIFIED DISEASES OF THE ORAL SOFT TISSUES 08/02/2014 LOCKETT DO SHANNA K V04.81 FLU SHOT 08/02/2014 BARRY CASTELLANO APRN 381.01 ACUTE SEROUS OTITIS MEDIA 08/02/2014 BARRY CASTELLANO APRN R 528.9 OTHER AND UNSPECIFIED DISEASES OF THE ORAL SOFT TISSUES 08/02/2014 GRAY DE LUNABARRY Hale R V04.81 FLU SHOT 08/02/2014 LEVY CARRANZA SHANNA K 381.01 ACUTE SEROUS OTITIS MEDIA 08/02/2014 LEVY CARRANZASHANNA K 528.9 OTHER AND UNSPECIFIED DISEASES OF THE ORAL SOFT TISSUES 08/02/2014 SHANNA LOCKETT DO K V04.81 FLU SHOT 08/08/2014 Ot 493.90 08/08/2014 Ot 790.29 08/08/2014 Ot 793.1 08/08/2014 Ot 496 08/08/2014 Ot 496 08/08/2014 Ot 795.00 08/08/2014 DESTINY MOREIRA, NELSON A Ot 496 08/08/2014 DESTINY MOREIRA, NELSON A Ot 519.11 08/08/2014 DESTINY MOREIRA, NELSON A Ot 786.09 08/08/2014 DESTINY MOREIRA, NELSON A Ot 496 08/08/2014 DESTINY MOREIRA, NELSON A Ot 786.2 08/08/2014 DESTINY MOREIRA, NELSON A Ot 799.02 08/08/2014 LUIZA THOMPSON DO Ot 496 08/08/2014 LUIZA THOMPSON DO Ot 278.01 08/08/2014 LUIZA THOMPSON DO Ot 496 08/08/2014 LUIZA THOMPSON DO Ot 799.02 08/20/2014 MADL BRANCH CONTROLLER, DION L 786.52 PAINFUL RESPIRATION 08/20/2014 MADL BRANCH CONTROLLER, DION L 786.52 PAINFUL RESPIRATION 08/20/2014 MADL BRANCH CONTROLLER, DION L 786.52 PAINFUL RESPIRATION 08/20/2014 MADL BRANCH CONTROLLER, DION L 786.52 PAINFUL RESPIRATION 08/20/2014 MADL BRANCH CONTROLLER, DION L 786.52 PAINFUL RESPIRATION 08/20/2014 MADL BRANCH CONTROLLER, DION L 786.52 PAINFUL RESPIRATION 08/20/2014 MADL BRANCH CONTROLLER, DION L 786.52 PAINFUL RESPIRATION 08/20/2014 LOCKETT SHANNA CARRANZA K 786.52 PAINFUL RESPIRATION 08/20/2014 CASTELLANO BRANCH CONTROLLER, BARRY R 786.52 PAINFUL RESPIRATION 08/20/2014 LOCKETT DO, SHANNA K 786.52 PAINFUL RESPIRATION 09/05/2014 MADL BRANCH CONTROLLER, DION L 112.0 CANDIDIASIS OF MOUTH 09/05/2014 MADL BRANCH CONTROLLER, DION L 682.6 CELLULITIS AND ABSCESS OF LEG EXCEPT FOOT 09/05/2014 MADL BRANCH CONTROLLER, DION L 112.0 CANDIDIASIS OF MOUTH 09/05/2014 MADL BRANCH CONTROLLER, DION L 682.6 CELLULITIS AND ABSCESS OF LEG EXCEPT FOOT 09/05/2014 MADL BRANCH CONTROLLER, DION L 112.0 CANDIDIASIS OF MOUTH 09/05/2014 MADL BRANCH CONTROLLER, DION L 682.6 CELLULITIS AND ABSCESS OF LEG EXCEPT FOOT 09/05/2014 MADL BRANCH CONTROLLER, DION L 112.0 CANDIDIASIS OF MOUTH 09/05/2014 MADL BRANCH CONTROLLER, DION L 682.6 CELLULITIS AND ABSCESS OF LEG EXCEPT FOOT 09/05/2014 LOCKETT DO, SHANNA K 112.0 CANDIDIASIS OF MOUTH 09/05/2014 LOCKETT DO, SHANNA K 682.6 CELLULITIS AND ABSCESS OF LEG EXCEPT FOOT 09/05/2014 CASTELLANO BRANCH CONTROLLER, BARRY R 112.0 CANDIDIASIS OF MOUTH 09/05/2014 CASTELLANO BRANCH CONTROLLER, BARRY R 682.6 CELLULITIS AND ABSCESS OF LEG EXCEPT FOOT 09/05/2014 LOCKETT DO, SHANNA K 112.0 CANDIDIASIS OF MOUTH 09/05/2014 LOCKETT DO, SHANNA K 682.6 CELLULITIS AND ABSCESS OF LEG EXCEPT FOOT 09/19/2014 MADL BRANCH CONTROLLER, DION L 465.9 UPPER RESPIRATORY INFECTION 09/19/2014 MADL BRANCH CONTROLLER, DION L 788.1 DYSURIA 09/19/2014 MADL BRANCH CONTROLLER, DION L 465.9 UPPER RESPIRATORY INFECTION 09/19/2014 MADL BRANCH CONTROLLER, DION L 788.1 DYSURIA 09/19/2014 MADL BRANCH CONTROLLER, DION L 465.9 UPPER RESPIRATORY INFECTION 09/19/2014 MADL BRANCH CONTROLLER, DION L 788.1 DYSURIA 09/19/2014 LOCKETT DO, SHANNA K 465.9 UPPER RESPIRATORY INFECTION 09/19/2014 LOCKETT DO, SHANNA K 788.1 DYSURIA 09/19/2014 BARRY CASTELLANO APRN R 465.9 UPPER RESPIRATORY INFECTION 09/19/2014 CASTELLANO RENO DEL T[place]OIA R 788.1 DYSURIA 09/19/2014 LOCKETT DOGRANTA K 465.9 UPPER RESPIRATORY INFECTION 09/19/2014 LOCKETT DO, SHANNA K 788.1 DYSURIA 10/17/2014 MADL BRANCH CONTROLLERLAURE HaleA L 729.1 MYALGIA AND MYOSITIS UNSPECIFIED 10/17/2014 MADL BRANCH CONTROLLERLAURE HaleA L 729.1 MYALGIA AND MYOSITIS UNSPECIFIED 10/17/2014 LOCKETT DOGRANTA K 729.1 MYALGIA AND MYOSITIS UNSPECIFIED 10/17/2014 RENO CASTELLANO APRNIA R 729.1 MYALGIA AND MYOSITIS UNSPECIFIED 10/17/2014 LOCKETT DO SHANNA K 729.1 MYALGIA AND MYOSITIS UNSPECIFIED 10/30/2014 Ot 311 10/30/2014 Ot 493.90 10/30/2014 Ot 790.29 10/30/2014 Ot 793.1 10/30/2014 Ot 496 10/30/2014 Ot 496 10/30/2014 Ot 795.00 10/30/2014 DESTINY MOREIRA, NELSON A Ot 496 10/30/2014 DESTINY MOREIRA, NELSON A Ot 519.11 10/30/2014 DESTINY MOREIRA, NELSON A Ot 786.09 10/30/2014 DESTINY MOREIRA, NELSON A Ot 496 10/30/2014 DESTINY MOREIRA, NELSON A Ot 786.2 10/30/2014 DESTINY MOREIRA, NELSON A Ot 799.02 10/30/2014 LUIZA THOMPSON DO Ot 496 10/30/2014 LUIZA THOMPSON DO Ot 278.01 10/30/2014 LUIZA THOMPSON DO Ot 496 10/30/2014 LUIZA THOMPSON DO Ot 799.02 10/31/2014 DION SOTO APRN L 783.1 ABNORMAL WEIGHT GAIN 10/31/2014 GRANT LOCKETT DOA K 783.1 ABNORMAL WEIGHT GAIN 10/31/2014 BARRY CASTELLANO APRN R 783.1 ABNORMAL WEIGHT GAIN 10/31/2014 SHANNA LOCKETT DO 783.1 ABNORMAL WEIGHT GAIN 11/12/2014 Ot 493.90 11/12/2014 Ot 790.29 11/12/2014 Ot 793.1 11/12/2014 Ot 496 11/12/2014 Ot 496 11/12/2014 Ot 795.00 11/12/2014 DESTINY MOREIRA, NELSON A Ot 496 11/12/2014 DESTIYN MOREIRA, NELSON A Ot 519.11 11/12/2014 DESTINY MOREIRA, NELSON A Ot 786.09 11/12/2014 DESTINY MOREIRA, NELSON A Ot 496 11/12/2014 DESTINY MOREIRA, NELSON A Ot 786.2 11/12/2014 DESTINY MOREIRA, NELSON A Ot 799.02 11/12/2014 LUIZA THOMPSON DO Ot 496 11/12/2014 LUIZA THOMPSON DO Ot 278.01 11/12/2014 LUIZA THOMPSON DO Ot 496 11/12/2014 LUIZA THOMPSON DO Ot 799.02 11/14/2014 Ot 493.90 11/14/2014 Ot 790.29 11/14/2014 Ot 793.1 11/14/2014 Ot 496 11/14/2014 Ot 496 11/14/2014 Ot 795.00 11/14/2014 DESTINY MOREIRA, NELSON A Ot 496 11/14/2014 DESTINY MOREIRA, NELSON A Ot 519.11 11/14/2014 DESTINY MOREIRA, NELSON A Ot 786.09 11/14/2014 DESTINY MOREIRA, NELSON A Ot 496 11/14/2014 DESTINY MOREIRA, NELSON A Ot 786.2 11/14/2014 DESTINY MOREIRA, NELSON A Ot 799.02 11/14/2014 LUIZA THOMPSON DO Ot 496 11/14/2014 LUIZA THOMPSON DO Ot 278.01 11/14/2014 LUIZA THOMPSON DO Ot 496 11/14/2014 LUIZA THOMPSON DO Ot 799.02 12/14/2014 BARRY CASTELLANO APRN R 300.00 ANXIETY UNSPEC 12/14/2014 RENO CASTELLANO APRNIA R 380.10 OTITIS EXTERNA LEFT 12/14/2014 RENO CASTELLANO APRNIA R 784.91 POSTNASAL DRIP 12/14/2014 SHANNA LOCKETT DO K 300.00 ANXIETY UNSPEC 12/14/2014 SHANNA LOCKETT DO K 380.10 OTITIS EXTERNA LEFT 12/14/2014 SHANNA LOCKETT DO K 784.91 POSTNASAL DRIP 12/14/2014 Ot 496 12/14/2014 Ot 799.02 12/18/2014 Ot 496 12/18/2014 Ot 799.02 05/09/2015 Ot 496 05/09/2015 Ot 496 05/09/2015 Ot 795.00 05/09/2015 DESTINY MOREIRA, NELSON A Ot 496 05/09/2015 DESTINY MOREIRA, NELSON A Ot 519.11 05/09/2015 DESTINY MOREIRA, NELSON A Ot 786.09 05/09/2015 DESTINY MOREIRA, NELSON A Ot 496 05/09/2015 DESTINY MOREIRA, NELSON A Ot 786.2 05/09/2015 DESTINY MOREIRA, NELSON A Ot 799.02 05/09/2015 JAY CARRANZALUIZA M Ot 496 05/09/2015 JAY CARRANZA LUIZA M Ot 278.01 05/09/2015 JAY LIUZA CARRANZA M Ot 496 05/09/2015 JAY CARRANZALUIZA M Ot 799.02 05/09/2015 Ot 496 05/09/2015 Ot 799.02 05/29/2015 DAR VALDIVIA DO Ot 626.0 06/05/2015 DAR VALDIVIA DO Ot 626.0 07/07/2015 Ot 496 07/07/2015 Ot 496 07/07/2015 Ot 496 07/07/2015 Ot 795.00 07/07/2015 DESTINY MOREIRA, NELSON A Ot 496 07/07/2015 DESTINY MOREIRA, NELSON A Ot 519.11 07/07/2015 DESTINY MOREIRA, NELSON A Ot 786.09 07/07/2015 DESTINY MOREIRA, NELSON A Ot 496 07/07/2015 DESTINY MOREIRA, NELSON A Ot 786.2 07/07/2015 DESTINY MOREIRA, NELSON A Ot 799.02 07/07/2015 LUIZA THOMPSON DO Ot 496 07/07/2015 LUIZA THOMPSON DO Ot 278.01 07/07/2015 LUIZA THOMPSON DO Ot 496 07/07/2015 LUIZA THOMPSON DO Ot 799.02 07/07/2015 Ot 496 07/07/2015 Ot 799.02 07/07/2015 DAR VALDIVIA DO Ot 626.0 07/07/2015 JOHN KILPATRICK APRN Ot J44.1 CHRONIC OBSTRUCTIVE PULMONARY DISEASE W 07/07/2015 JOHN KILPATRICK APRN Ot R05 COUGH 07/16/2015 LAURA BENNETT MD Ot E66.9 OBESITY, UNSPECIFIED 07/16/2015 LAURA BENNETT MD Ot F15.20 OTHER STIMULANT DEPENDENCE, UNCOMPLICATE 07/16/2015 LAURA BENNETT MD Ot F32.9 MAJOR DEPRESSIVE DISORDER, SINGLE EPISOD 07/16/2015 LAURA BENNETT MD, Ot F41.9 ANXIETY DISORDER, UNSPECIFIED 07/16/2015 LAURA BENNETT MD, Ot J44.1 CHRONIC OBSTRUCTIVE PULMONARY DISEASE W 07/16/2015 LAURA BENNETT MD, Ot J96.20 ACUTE AND CHR RESP FAILURE, UNSP W HYPOX 07/16/2015 LAURA BENNETT MD Ot Z68.42 BODY MASS INDEX (BMI) 45.0-49.9, ADULT 07/16/2015 LAURA BENNETT MD Ot Z87.891 PERSONAL HISTORY OF NICOTINE DEPENDENCE 07/16/2015 LAURA BENNETT MD Ot Z99.81 DEPENDENCE ON SUPPLEMENTAL OXYGEN 08/27/2015 RENETTA MOREIRA FACC, LINDY NORRISP CCDS Ot E66.01 MORBID (SEVERE) OBESITY DUE TO EXCESS CA 08/27/2015 RENETTA MOREIRA FACC, LINDY FACP CCDS Ot F41.9 ANXIETY DISORDER, UNSPECIFIED 08/27/2015 RENETTA MOREIRA FACC, LINDY FACP CCDS Ot G47.33 OBSTRUCTIVE SLEEP APNEA (ADULT) (PEDIATR 08/27/2015 RENETTA MOREIRA FACC, LINDY NORRISP CCDS Ot J44.9 CHRONIC OBSTRUCTIVE PULMONARY DISEASE, U 08/27/2015 RENETTA MOREIRA FACC, ALI FACP CCDS Ot R06.02 SHORTNESS OF BREATH 08/27/2015 RENETTA NORRIS, ALI FACP CCDS Ot R07.89 OTHER CHEST PAIN 08/27/2015 RENETTA MOREIRA FACC, ALI FACP CCDS Ot R73.9 HYPERGLYCEMIA, UNSPECIFIED 08/27/2015 RENETTA MOREIRA FACC, ALI FACP CCDS Ot Z68.42 BODY MASS INDEX (BMI) 45.0-49.9, ADULT 08/27/2015 RENETTA NORRIS, ALI FACP CCDS Ot Z79.899 OTHER [facility] (CURRENT) DRUG THERAPY 08/27/2015 RENETTA NORRIS, ALI FACP CCDS Ot Z87.891 PERSONAL HISTORY OF NICOTINE DEPENDENCE 08/27/2015 RENETTA MOREIRA FACC, LINDY FACP CCDS Ot Z91.19 PATIENT'S NONCOMPLIANCE W [facility] MEDICAL TR 09/04/2015 SERENITY BARNES MD Ot F17.211 NICOTINE DEPENDENCE, CIGARETTES, IN [place] 09/04/2015 SERENITY BARNES MD Ot F41.9 ANXIETY DISORDER, UNSPECIFIED 09/04/2015 SERENITY BARNES MD, Ot J44.1 CHRONIC OBSTRUCTIVE PULMONARY DISEASE W 09/04/2015 SERENITY BARNES MD Ot R00.0 TACHYCARDIA, UNSPECIFIED 09/04/2015 SERENITY BARNES MD Ot Z99.81 DEPENDENCE ON SUPPLEMENTAL OXYGEN 09/17/2015 JOHN KILPATRICK APRN Ot F17.211 NICOTINE DEPENDENCE, CIGARETTES, IN [place] 09/17/2015 JOHN KILPATRICK APRN Ot J44.1 CHRONIC OBSTRUCTIVE PULMONARY DISEASE W 09/17/2015 JOHN KILPATRICK APRN Ot Z99.81 DEPENDENCE ON SUPPLEMENTAL OXYGEN 10/01/2015 DAR VALDIVIA DO Ot 626.0 10/07/2015 TEMITOPE GARCIA DO Ot E11.9 TYPE 2 DIABETES MELLITUS WITHOUT COMPLIC 10/07/2015 TEMITOPE GARCIA DO Ot E66.01 MORBID (SEVERE) OBESITY DUE TO EXCESS CA 10/07/2015 TEMITOPE GARCIA DO Ot E86.0 DEHYDRATION 10/07/2015 TEMITOPE GARCIA DO Ot J44.1 CHRONIC OBSTRUCTIVE PULMONARY DISEASE W 10/07/2015 TEMITOPE GARCIA DO Ot J95.822 ACUTE AND CHRONIC POSTPROCEDURAL RESPIRA 10/07/2015 GELLENDER DO, TEMITOPE Moran Ot K21.9 GASTRO-ESOPHAGEAL REFLUX DISEASE WITHOUT 10/07/2015 GELLENDER DO, TEMITOPE Moran Ot R00.0 TACHYCARDIA, UNSPECIFIED 10/07/2015 GELLENDER DO, TEMITOPE Moran Ot Z68.42 BODY MASS INDEX (BMI) 45.0-49.9, ADULT 10/07/2015 GELLENDER DO, TEMITOPE Moran Ot Z87.891 PERSONAL HISTORY OF NICOTINE DEPENDENCE 10/30/2015 GELLENDER DO, TEMITOPE Moran Ot E11.9 TYPE 2 DIABETES MELLITUS WITHOUT COMPLIC 10/30/2015 GELLENDER DO, TEMITOPE Moran Ot E66.01 MORBID (SEVERE) OBESITY DUE TO EXCESS CA 10/30/2015 GELLENDER DO, TEMITOPE Moran Ot F32.9 MAJOR DEPRESSIVE DISORDER, SINGLE EPISOD 10/30/2015 GELLENDER DO, TEMITOPE Moran Ot F41.9 ANXIETY DISORDER, UNSPECIFIED 10/30/2015 GELLENDER DO, TEMITOPE Moran Ot I10 ESSENTIAL (PRIMARY) HYPERTENSION 10/30/2015 GELLENDER DO, TEMITOPE Moran Ot J18.9 PNEUMONIA, UNSPECIFIED ORGANISM 10/30/2015 GELLENDER DO, TEMITOPE Moran Ot J44.1 CHRONIC OBSTRUCTIVE PULMONARY DISEASE W 10/30/2015 GELLENDER DO, TEMITOPE Moran Ot K21.9 GASTRO-ESOPHAGEAL REFLUX DISEASE WITHOUT 10/30/2015 GELLENDER DO, TEMITOPE Moran Ot Z68.42 BODY MASS INDEX (BMI) 45.0-49.9, ADULT 10/30/2015 GELLENDER DO, TEMITOPE Moran Ot Z87.891 PERSONAL HISTORY OF NICOTINE DEPENDENCE 10/30/2015 GELLENDER DO, TEMITOPE Moran Ot Z99.81 DEPENDENCE ON SUPPLEMENTAL OXYGEN 11/05/2015 GELLENDER DO, TEMITOPE Moran Ot D72.829 11/05/2015 GELLENDER DO, TEMITOPE Moran Ot E11.9 11/05/2015 GELLENDER DO, TEMITOPE Moran Ot E66.01 11/05/2015 GELLENDER DO, TEMITOPE Moran Ot F17.210 11/05/2015 GELLENDER DO, TEMITOPE Moran Ot F32.9 11/05/2015 GELLENDER DO, TEMITOPE Moran Ot F41.9 11/05/2015 GELLENDER DO, TEMITOPE Moran Ot G47.30 11/05/2015 GELLENDER DO, TEMITOPE Moran Ot I10 11/05/2015 GELLENDER DO, TEMITOPE Moran Ot J44.9 11/05/2015 GELLENDER DO, TEMITOPE Moran Ot J45.909 11/05/2015 GELLENDER DO, TEMITOPE Moran Ot K21.9 11/05/2015 GELLENDER DO, TEMITOPE Moran Ot R10.9 11/05/2015 GELLENDER DO, TEMITOPE Moran Ot R11.10 11/05/2015 GELLENDER DO, TEMITOPE Moran Ot Z68.41 11/05/2015 GELLENDER DO, TEMITOPE Moran Ot Z99.81 11/06/2015 GELLENDER DO, TEMITOPE Moran Ot D72.829 ELEVATED WHITE BLOOD CELL COUNT, UNSPECI 11/06/2015 GELLENDER DO, TEMITOPE Moran Ot E11.9 TYPE 2 DIABETES MELLITUS WITHOUT COMPLIC 11/06/2015 GELLENDER DO, TEMITOPE Moran Ot E66.01 MORBID (SEVERE) OBESITY DUE TO EXCESS CA 11/06/2015 GELLENDER DO, TEMITOPE Moran Ot F17.210 NICOTINE DEPENDENCE, CIGARETTES, UNCOMPL 11/06/2015 GELLENDER DO, TEMITOPE Moran Ot F32.9 MAJOR DEPRESSIVE DISORDER, SINGLE EPISOD 11/06/2015 GELLENDER DO, TEMITOPE Moran Ot F41.9 ANXIETY DISORDER, UNSPECIFIED 11/06/2015 GELLENDER DO, TEMITOPE Moran Ot G47.30 SLEEP APNEA, UNSPECIFIED 11/06/2015 GELLENDER DO, TEMITOPE Moran Ot I10 ESSENTIAL (PRIMARY) HYPERTENSION 11/06/2015 GELLENDER DO, TEMITOPE Moran Ot J44.9 CHRONIC OBSTRUCTIVE PULMONARY DISEASE, U 11/06/2015 GELLENDER DO, TEMITOPE Moran Ot J45.909 UNSPECIFIED ASTHMA, UNCOMPLICATED 11/06/2015 GELLENDER DO, TEMITOPE Moran Ot K21.9 GASTRO-ESOPHAGEAL REFLUX DISEASE WITHOUT 11/06/2015 GELLENDER DO, TEMITOPE Moran Ot K52.9 NONINFECTIVE GASTROENTERITIS AND COLITIS 11/06/2015 GELLENDER DO, TEMITOPE Moran Ot K57.90 DVRTCLOS OF INTEST, PART UNSP, W/O PERF 11/06/2015 GELLENDER DO, TEMITOPE Moran Ot N20.0 CALCULUS OF KIDNEY 11/06/2015 GELLENDER DO, TEMITOPE Moran Ot T38.0X5A ADVERSE EFFECT OF GLUCOCORT/SYNTH ANALOG 11/06/2015 GELLENDER DO, TEMITOPE Moran Ot Z68.41 BODY MASS INDEX (BMI) 40.0-44.9, ADULT 11/06/2015 TEMITOPE GARCIA DO Ot Z99.81 DEPENDENCE ON SUPPLEMENTAL OXYGEN 11/11/2015 JOHN KILPATRICK APRN Ot E11.65 TYPE 2 DIABETES MELLITUS WITH HYPERGLYCE 11/11/2015 JOHN KILPATRICK APRN Ot F17.211 NICOTINE DEPENDENCE, CIGARETTES, IN [place] 11/11/2015 JOHN KILPATRICK APRN Ot J44.9 CHRONIC OBSTRUCTIVE PULMONARY DISEASE, U 11/11/2015 JOHN KILPATRICK APRN Ot R91.1 SOLITARY PULMONARY NODULE 11/11/2015 JOHN KILPATRICK APRN Ot 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 11/11/2015 JOHN KILPATRICK APRN Ot Z99.81 DEPENDENCE ON SUPPLEMENTAL OXYGEN 11/29/2015 WILL MOREIRA, ADA Guerra Ot F17.211 NICOTINE DEPENDENCE, CIGARETTES, IN [place] 11/29/2015 ADA SOLIS MD Ot J44.1 CHRONIC OBSTRUCTIVE PULMONARY DISEASE W 12/02/2015 ADA SOLIS MD Ot F17.211 12/02/2015 ADA SOLIS MD Ot J44.1 12/16/2015 SERENITY BARNES MD Ot E11.9 TYPE 2 DIABETES MELLITUS WITHOUT COMPLIC 12/16/2015 SERENITY BARNES MD Ot E66.9 OBESITY, UNSPECIFIED 12/16/2015 SERENITY BARNES MD Ot I10 ESSENTIAL (PRIMARY) HYPERTENSION 12/16/2015 SERENITY BARNES MD Ot J44.1 CHRONIC OBSTRUCTIVE PULMONARY DISEASE W 12/16/2015 SERENITY BARNES MD Ot R00.0 TACHYCARDIA, UNSPECIFIED 12/16/2015 SERENITY BARNES MD Ot Z99.81 DEPENDENCE ON SUPPLEMENTAL OXYGEN 12/17/2015 Ot 496 12/18/2015 SERENITY BARNES MD Ot E11.9 12/18/2015 SERENITY BARNES MD Ot E66.9 12/18/2015 SERENITY BARNES MD Ot I10 12/18/2015 SERENITY BARNES MD Ot J44.1 12/18/2015 SERENITY BARNES MD Ot R00.0 12/18/2015 SERENITY BARNES MD Ot Z99.81 12/20/2015 TEMITOPE GARCIA DO Ot A41.81 SEPSIS DUE TO ENTEROCOCCUS 12/20/2015 JOSE CARRANZA, TEMITOPE Moran Ot B37.49 OTHER UROGENITAL CANDIDIASIS 12/20/2015 JOSE CARRANZA, TEMITOPE Moran Ot E11.9 TYPE 2 DIABETES MELLITUS WITHOUT COMPLIC 12/20/2015 TEMITOPE GARCIA DO Ot E66.01 MORBID (SEVERE) OBESITY DUE TO EXCESS CA 12/20/2015 JOSE CARRANZA, TEMITOPE Moran Ot F32.9 MAJOR DEPRESSIVE DISORDER, SINGLE EPISOD 12/20/2015 JOSE CARRANZA, TEMITOPE Moran Ot F41.9 ANXIETY DISORDER, UNSPECIFIED 12/20/2015 TEMITOPE GARCIA DO Ot G47.30 SLEEP APNEA, UNSPECIFIED 12/20/2015 JOSE CARRANZA TEMITOPE Moran Ot I10 ESSENTIAL (PRIMARY) HYPERTENSION 12/20/2015 JOSE CARRANZA TEMITOPE Moran Ot J44.1 CHRONIC OBSTRUCTIVE PULMONARY DISEASE W 12/20/2015 JOSE CARRANZA TEMITOPE Moran Ot J45.909 UNSPECIFIED ASTHMA, UNCOMPLICATED 12/20/2015 JOSE CARRANZA TEMITOPE Moran Ot K21.9 GASTRO-ESOPHAGEAL REFLUX DISEASE WITHOUT 12/20/2015 TEMITOPE GARCIA DO Ot R09.02 HYPOXEMIA 12/20/2015 TEMITOPE GARCIA DO Ot Z68.42 BODY MASS INDEX (BMI) 45.0-49.9, ADULT 12/20/2015 TEMITOPE GARCIA DO Ot Z87.891 PERSONAL HISTORY OF NICOTINE DEPENDENCE 12/20/2015 TEMITOPE GARCIA DO Ot Z91.19 PATIENT'S NONCOMPLIANCE W [facility] MEDICAL TR 12/20/2015 JOSE CARRANZA TEMITOPE Moran Ot Z99.81 DEPENDENCE ON SUPPLEMENTAL OXYGEN 01/29/2016 MARGO CAMPOVERDE APRN Ot J30.9 ALLERGIC RHINITIS, UNSPECIFIED 01/29/2016 MARGO CAMPOVERDE APRN Ot J44.9 CHRONIC OBSTRUCTIVE PULMONARY DISEASE, U 01/29/2016 MARGO CAMPOVERDE APRN Ot R09.02 HYPOXEMIA 02/19/2016 JOHN KILPATRICK APRN Ot 491.21 OBSTR CHRONIC BRONCHITIS, W (ACUTE) EXAC 02/19/2016 JOHN KILPATRICK APRN Ot 786.50 CHEST PAIN NOS 02/19/2016 MOLLY MOREIRA, SERENITY Fxo Ot E11.9 TYPE 2 DIABETES MELLITUS WITHOUT COMPLIC 02/19/2016 MOLLY MOREIRA, SERENITY Fox Ot E66.9 OBESITY, UNSPECIFIED 02/19/2016 MOLLY MOREIRA, SERENITY Fox Ot I10 ESSENTIAL (PRIMARY) HYPERTENSION 02/19/2016 MOLLY MOREIRA, SERENITY Fox Ot J44.1 CHRONIC OBSTRUCTIVE PULMONARY DISEASE W 02/19/2016 MOLLY MOREIRA, SERENITY Fox Ot R00.0 TACHYCARDIA, UNSPECIFIED 02/19/2016 MOLLY MOREIRA, SERENITY Fox Ot Z99.81 DEPENDENCE ON SUPPLEMENTAL OXYGEN 03/12/2016 MARGO CAMPOVERDE BRANCH CONTROLLER Ot J30.9 ALLERGIC RHINITIS, UNSPECIFIED 03/12/2016 NIRALIMARGO HICKS BRANCH CONTROLLER Ot J44.9 CHRONIC OBSTRUCTIVE PULMONARY DISEASE, U 03/12/2016 NIRALIMARGO HICKS BRANCH CONTROLLER Ot R09.02 HYPOXEMIA 03/19/2016 MARGO CAMPOVERDE BRANCH CONTROLLER Ot J30.9 ALLERGIC RHINITIS, UNSPECIFIED 03/19/2016 NIRALIMARGO HICKS BRANCH CONTROLLER Ot J44.9 CHRONIC OBSTRUCTIVE PULMONARY DISEASE, U 03/19/2016 NIRALIMARGO HICKS APRN Ot R09.02 HYPOXEMIA 03/29/2016 Ot 496 CHR AIRWAY OBSTRUCT NEC 03/29/2016 KJ DO, CHRISTELLE K Ot E11.9 TYPE 2 DIABETES MELLITUS WITHOUT COMPLIC 03/29/2016 KJ DO, CHRISTELLE K Ot E66.9 OBESITY, UNSPECIFIED 03/29/2016 KJ DO, CHRISTELLE K Ot F41.9 ANXIETY DISORDER, UNSPECIFIED 03/29/2016 KJ DO, CHRISTELLE K Ot J44.1 CHRONIC OBSTRUCTIVE PULMONARY DISEASE W 03/29/2016 KJ DO, CHRISTELLE K Ot Z99.81 DEPENDENCE ON SUPPLEMENTAL OXYGEN 03/30/2016 KJ DO, CHRISTELLE K Ot E11.9 TYPE 2 DIABETES MELLITUS WITHOUT COMPLIC 03/30/2016 KJ DO, CHRISTELLE K Ot E66.9 OBESITY, UNSPECIFIED 03/30/2016 KJ DO, CHRISTELLE K Ot F41.9 ANXIETY DISORDER, UNSPECIFIED 03/30/2016 KJ DO, CHRISTELLE K Ot J44.1 CHRONIC OBSTRUCTIVE PULMONARY DISEASE W 03/30/2016 KJ DO, CHRISTELLE K Ot Z99.81 DEPENDENCE ON SUPPLEMENTAL OXYGEN 04/20/2016 JOHN KILPATRICK BRANCH CONTROLLER Ot 491.21 OBSTR CHRONIC BRONCHITIS, W (ACUTE) EXAC 04/20/2016 JOHN KILPATRICK APRN Ot 786.50 CHEST PAIN NOS 04/20/2016 MOLLY MOREIRA, SERENITY Fox Ot E11.9 TYPE 2 DIABETES MELLITUS WITHOUT COMPLIC 04/20/2016 MOLLY MOREIRA, SERENITY Fox Ot E66.9 OBESITY, UNSPECIFIED 04/20/2016 MOLLY MOREIRA, SERENITY Fox Ot I10 ESSENTIAL (PRIMARY) HYPERTENSION 04/20/2016 MOLLY MOREIRA, SERENITY Fox Ot J44.1 CHRONIC OBSTRUCTIVE PULMONARY DISEASE W 04/20/2016 MOLLY MOREIRA, SERENITY Fox Ot R00.0 TACHYCARDIA, UNSPECIFIED 04/20/2016 SERENITY BARNES MD Ot Z99.81 DEPENDENCE ON SUPPLEMENTAL OXYGEN 04/26/2016 MARGO CAMPOVERDE APRN Ot J30.9 ALLERGIC RHINITIS, UNSPECIFIED 04/26/2016 MARGO CAMPOVERDE APRN Ot J44.9 CHRONIC OBSTRUCTIVE PULMONARY DISEASE, U 04/26/2016 MARGO CAMPOVERDE APRN Ot R09.02 HYPOXEMIA 05/04/2016 JOHN KILPATRICK APRN Ot J44.9 CHRONIC OBSTRUCTIVE PULMONARY DISEASE, U 05/04/2016 JOHN KILPATRICK APRN Ot M48.54XA COLLAPSED VERTEBRA, NEC, THORACIC REGION 05/04/2016 JOHN KILPATRICK APRN Ot R51 HEADACHE 05/04/2016 JOHN KILPATRICK APRN Ot S46.901A UNSP INJ UNSP MUSC/FASC/TEND AT [facility]/ 05/06/2016 JOHN KILPATRICK APRN Ot J44.9 CHRONIC OBSTRUCTIVE PULMONARY DISEASE, U 05/06/2016 JOHN KILPATRICK APRN Ot M48.54XA COLLAPSED VERTEBRA, NEC, THORACIC REGION 05/06/2016 JOHN KILPATRICK APRN Ot R51 HEADACHE 05/06/2016 JOHN KILPATRICK APRN Ot S46.901A UNSP INJ UNSP MUSC/FASC/TEND AT [facility]/ 05/12/2016 JOHN KILPATRICK APRN Ot J44.9 CHRONIC OBSTRUCTIVE PULMONARY DISEASE, U 05/12/2016 JOHN KILPATRICK APRN Ot M48.54XA COLLAPSED VERTEBRA, NEC, THORACIC REGION 05/12/2016 JOHN KILPATRICK BRANCH CONTROLLER Ot R51 HEADACHE 05/12/2016 JOHN KILPATRICK APRN Ot S46.901A UNSP INJ UNSP MUSC/FASC/TEND AT [facility]/UP 05/14/2016 Ot 496 CHR AIRWAY OBSTRUCT NEC 05/14/2016 Ot 496 CHR AIRWAY OBSTRUCT NEC 05/14/2016 Ot 795.00 ABNORMAL GLANDULAR PAPANICOLAOU SMEAR OF 05/14/2016 DESTINY MOREIRA, NELSON A Ot 496 CH[employer] AIRW[employer] OBSTRUCT NEC 05/14/2016 DESTINY MOREIRA, NELSON A Ot 519.11 ACUTE BRONCHOSPASM 05/14/2016 DESTINY MOREIRA, NELSON A Ot 786.09 RESPIRATORY ABNORM NEC 05/14/2016 DESTINY MOREIRA, NELSON A Ot 496 [employer] OBSTRUCT NEC 05/14/2016 DESTINY MOREIRA, NELSON A Ot 786.2 COUGH 05/14/2016 DESTINY MOREIRA, NELSON A Ot 799.02 HYPOXEMIA 05/14/2016 LUIZA THOMPSON DO Ot 496 [address] AIRW[employer] OBSTRUCT NEC 05/14/2016 LUIZA THOMPSON DO Ot 278.01 MORBID OBESITY 05/14/2016 LUIZA THOMPSON DO Ot 496 [employer] OBSTRUCT NEC 05/14/2016 LUIZA THOMPSON DO Ot 799.02 HYPOXEMIA 05/14/2016 Ot 496 CH[employer] AIRWAY OBSTRUCT NEC 05/14/2016 Ot 799.02 HYPOXEMIA 05/14/2016 DAR VALDIVIA DO Ot 626.0 ABSENCE OF MENSTRUATION 05/14/2016 MARGO CAMPOVERDE APRN Ot J30.9 ALLERGIC RHINITIS, UNSPECIFIED 05/14/2016 MARGO CAMPOVERDE APRN Ot J44.9 CHRONIC OBSTRUCTIVE PULMONARY DISEASE, U 05/14/2016 MARGO CAMPOVERDE APRN Ot R09.02 HYPOXEMIA 05/14/2016 Ot 496 CH[employer] AIRWAY OBSTRUCT NEC 05/14/2016 Ot 496 CHR AIRWAY OBSTRUCT NEC 05/14/2016 Ot 795.00 ABNORMAL GLANDULAR PAPANICOLAOU SMEAR OF 05/14/2016 DESTINY MOREIRA, NELSON A Ot 496 CH[employer] AIRW[employer] OBSTRUCT NEC 05/14/2016 DESTINY MOREIRA, NELSON A Ot 519.11 ACUTE BRONCHOSPASM 05/14/2016 DESTINY MOREIRA, NELSON A Ot 786.09 RESPIRATORY ABNORM NEC 05/14/2016 DESTINY MOREIRA, NELSON A Ot 496 CH[address] AIRW[employer] OBSTRUCT NEC 05/14/2016 DESTINY MOREIRA, NELSON A Ot 786.2 COUGH 05/14/2016 DESTINY MOREIRA, NELSON A Ot 799.02 HYPOXEMIA 05/14/2016 JAY CARRANZA LUIZA Hidalgo Ot 496 CHR AIRWAY OBSTRUCT NEC 05/14/2016 JAY CARRANZA LUIZA [place] Ot 278.01 MORBID OBESITY 05/14/2016 JAY CARRANZA LUIZA [place] Ot 496 CHR AIRWAY OBSTRUCT NEC 05/14/2016 JAY CARRANZA LUIZA [place] Ot 799.02 HYPOXEMIA 05/14/2016 Ot 496 CHR AIRWAY OBSTRUCT NEC 05/14/2016 Ot 799.02 HYPOXEMIA 05/14/2016 VALDIVIAVonda CARRANZA DAR [place] Ot 626.0 ABSENCE OF MENSTRUATION 05/14/2016 MARGO CAMPOVERDE APRN Ot J30.9 ALLERGIC RHINITIS, UNSPECIFIED 05/14/2016 MARGO CAMPOVERDE APRN Ot J44.9 CHRONIC OBSTRUCTIVE PULMONARY DISEASE, U 05/14/2016 MARGO CAMPOVERDE APRN Ot R09.02 HYPOXEMIA 05/14/2016 Ot 496 CHR AIRWAY OBSTRUCT NEC 05/14/2016 MARGO CAMPOVERDE APRN Ot J30.9 ALLERGIC RHINITIS, UNSPECIFIED 05/14/2016 AMRGO CAMPOVERDE APRN Ot J44.9 CHRONIC OBSTRUCTIVE PULMONARY DISEASE, U 05/14/2016 MARGO CAMPOVERDE APRN Ot R09.02 HYPOXEMIA 05/14/2016 JOHN KILPATRICK APRN Ot E11.9 TYPE 2 DIABETES MELLITUS WITHOUT COMPLIC 05/14/2016 JOHN KILPATRICK APRN Ot E66.9 OBESITY, UNSPECIFIED 05/14/2016 JOHN KILPATRICK APRN Ot H60.502 UNSPECIFIED ACUTE NONINFECTIVE OTITIS EX 05/14/2016 JOHN KILPATRICK APRN Ot H92.02 OTALGIA, LEFT EAR 05/14/2016 JOHN KILPATRICK APRN Ot J44.9 CHRONIC OBSTRUCTIVE PULMONARY DISEASE, U 05/14/2016 JOHN KILPATRICK APRN Ot Z79.4 MCC (CURRENT) USE OF INSULIN 05/15/2016 DEVORAH PETERSON MD Ot J44.1 CHRONIC OBSTRUCTIVE PULMONARY DISEASE W 05/15/2016 DEVORAH PETERSON MD Ot R04.2 HEMOPTYSIS 05/18/2016 JOHN KILPATRICK APRN Ot E11.9 TYPE 2 DIABETES MELLITUS WITHOUT COMPLIC 05/18/2016 JOHN KILPATRICK APRN Ot E66.9 OBESITY, UNSPECIFIED 05/18/2016 JOHN KILPATRICK APRN Ot H60.502 UNSPECIFIED ACUTE NONINFECTIVE OTITIS EX 05/18/2016 JOHN KILPATRICK APRN Ot H92.02 OTALGIA, LEFT EAR 05/18/2016 JOHN KILPATRICK APRN Ot J44.9 CHRONIC OBSTRUCTIVE PULMONARY DISEASE, U 05/18/2016 JOHN KILPATRICK APRN Ot 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 05/21/2016 SERENITY BARNES MD Ot E11.9 TYPE 2 DIABETES MELLITUS WITHOUT COMPLIC 05/21/2016 SERENITY BARNES MD, Ot E66.9 OBESITY, UNSPECIFIED 05/21/2016 SERENITY BARNES MD Ot I10 ESSENTIAL (PRIMARY) HYPERTENSION 05/21/2016 SERENITY BARNES MD, Ot J44.1 CHRONIC OBSTRUCTIVE PULMONARY DISEASE W 05/21/2016 SERENITY BARNES MD Ot R00.0 TACHYCARDIA, UNSPECIFIED 05/21/2016 SERENITY BARNES MD Ot Z99.81 DEPENDENCE ON SUPPLEMENTAL OXYGEN 05/21/2016 JOHN KILPATRICK APRN Ot J44.9 CHRONIC OBSTRUCTIVE PULMONARY DISEASE, U 05/21/2016 JOHN KILPATRICK APRN Ot M48.54XA COLLAPSED VERTEBRA, NEC, THORACIC REGION 05/21/2016 JOHN KILPATRICK APRN Ot R51 HEADACHE 05/21/2016 JOHN KILPATRICK APRN Ot S46.901A UNSP INJ UNSP MUSC/FASC/TEND AT SHLDR/UP 05/26/2016 Ot 496 CHR AIRWAY OBSTRUCT NEC 05/26/2016 Ot 496 CHR AIRWAY OBSTRUCT NEC 05/26/2016 Ot 795.00 ABNORMAL GLANDULAR PAPANICOLAOU SMEAR OF 05/26/2016 DESTINY MOREIRA, NELSON A Ot 496 CHR AIRWAY OBSTRUCT NEC 05/26/2016 DESTINY MOREIRA, NELSON A Ot 519.11 ACUTE BRONCHOSPASM 05/26/2016 DESTINY MOREIRA, NELSON A Ot 786.09 RESPIRATORY ABNORM NEC 05/26/2016 DESTINY MOREIRA, NELSON A Ot 496 CHR AIRWAY OBSTRUCT NEC 05/26/2016 DESTINY MOREIRA, NELSON A Ot 786.2 COUGH 05/26/2016 DESTINY MOREIRA, NELSON A Ot 799.02 HYPOXEMIA 05/26/2016 JAY LUIZA Hidalgo Ot 496 CHR AIRWAY OBSTRUCT NEC 05/26/2016 JAY CARRANZA LUIZA [place] Ot 278.01 MORBID OBESITY 05/26/2016 JAY CARRANZA LUIZA [place] Ot 496 CHR AIRWAY OBSTRUCT NEC 05/26/2016 JAY CARRANZA LUIZA [place] Ot 799.02 HYPOXEMIA 05/26/2016 Ot 496 CHR AIRWAY OBSTRUCT NEC 05/26/2016 Ot 799.02 HYPOXEMIA 05/26/2016 VALDIVIAVonda CARRANZA DAR [place] Ot 626.0 ABSENCE OF MENSTRUATION 05/26/2016 MARGO CAMPOVERDE APRN Ot J30.9 ALLERGIC RHINITIS, UNSPECIFIED 05/26/2016 MARGO CAMPOVERDE APRN Ot J44.9 CHRONIC OBSTRUCTIVE PULMONARY DISEASE, U 05/26/2016 MARGO CAMPOVERDE APRN Ot R09.02 HYPOXEMIA 05/26/2016 KRISTEN MOREIRA, DEVORAH S Ot J44.1 CHRONIC OBSTRUCTIVE PULMONARY DISEASE W 05/26/2016 KRISTEN MOREIRA, DEVORAH S Ot R04.2 HEMOPTYSIS 05/26/2016 MARGO CAMPOVERDE APRN Ot J30.9 ALLERGIC RHINITIS, UNSPECIFIED 05/26/2016 MARGO CAMPOVERDE APRN Ot J44.9 CHRONIC OBSTRUCTIVE PULMONARY DISEASE, U 05/26/2016 MARGO CAMPOVERDE APRN Ot R09.02 HYPOXEMIA 05/26/2016 Ot 496 CHR AIRWAY OBSTRUCT NEC 05/26/2016 Ot 496 CHR AIRWAY OBSTRUCT NEC 05/26/2016 Ot 795.00 ABNORMAL GLANDULAR PAPANICOLAOU SMEAR OF 05/26/2016 DESTINY MOREIRA, NELSON A Ot 496 CHR AIRWAY OBSTRUCT NEC 05/26/2016 DESTINY MOREIRA, NELSON A Ot 519.11 ACUTE BRONCHOSPASM 05/26/2016 DESTINY MOREIRA, NELSON A Ot 786.09 RESPIRATORY ABNORM NEC 05/26/2016 DESTINY MOREIRA, NELSON A Ot 496 CHR AIRWAY OBSTRUCT NEC 05/26/2016 DESTINY MOREIRA, NELSON A Ot 786.2 COUGH 05/26/2016 DESTINY MOREIRA, NELSON A Ot 799.02 HYPOXEMIA 05/26/2016 LUIZA THOMPSON DO Ot 496 CHR AIRWAY OBSTRUCT NEC 05/26/2016 LUIZA THOMPSON DO Ot 278.01 MORBID OBESITY 05/26/2016 LUIZA THOMPSON DO Ot 496 CHR AIRWAY OBSTRUCT NEC 05/26/2016 LUIZA THOMPSON DO Ot 799.02 HYPOXEMIA 05/26/2016 Ot 496 CHR AIRWAY OBSTRUCT NEC 05/26/2016 Ot 799.02 HYPOXEMIA 05/26/2016 DAR VALDIVIA DO Ot 626.0 ABSENCE OF MENSTRUATION 05/26/2016 MARGO CAMPOVERDE APRN Ot J30.9 ALLERGIC RHINITIS, UNSPECIFIED 05/26/2016 MARGO CAMPOVERDE APRN Ot J44.9 CHRONIC OBSTRUCTIVE PULMONARY DISEASE, U 05/26/2016 MARGO CAMPOVERDE APRN Ot R09.02 HYPOXEMIA 05/26/2016 KRISTEN MOREIRA, DEVORAH S Ot J44.1 CHRONIC OBSTRUCTIVE PULMONARY DISEASE W 05/26/2016 KRISTEN MOREIRA, DEVORAH S Ot R04.2 HEMOPTYSIS 05/26/2016 KRISTEN MOREIRA, DEVORAH S Ot J44.1 CHRONIC OBSTRUCTIVE PULMONARY DISEASE W 05/26/2016 KRISTEN MOREIRA, DEVORAH S Ot R04.2 HEMOPTYSIS 05/27/2016 MARGO CAMPOVERDE APRN Ot J30.9 ALLERGIC RHINITIS, UNSPECIFIED 05/27/2016 MARGO CAMPOVERDE APRN Ot J44.9 CHRONIC OBSTRUCTIVE PULMONARY DISEASE, U 05/27/2016 MARGO CAMPOVERDE APRN Ot R09.02 HYPOXEMIA 06/03/2016 KRISTEN MOREIRA, DEVORAH S Ot J44.1 CHRONIC OBSTRUCTIVE PULMONARY DISEASE W 06/03/2016 KRISTEN MOREIRA, DEVORAH S Ot R04.2 HEMOPTYSIS 06/17/2016 CHRISTELLE UNDERWOOD DO Ot B37.0 CANDIDAL STOMATITIS 06/17/2016 CHRISTELLE UNDERWOOD DO Ot E11.9 TYPE 2 DIABETES MELLITUS WITHOUT COMPLIC 06/17/2016 CHRISTELLE UNDERWOOD DO Ot I10 ESSENTIAL (PRIMARY) HYPERTENSION 06/17/2016 CHRISTELLE UNDERWOOD DO Ot J44.9 CHRONIC OBSTRUCTIVE PULMONARY DISEASE, U 06/17/2016 KJ DO, CHRISTELLE K Ot K13.79 OTHER LESIONS OF ORAL MUCOSA 06/17/2016 KJ DO, CHRISTELLE K Ot 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 06/17/2016 KJ DO, CHRISTELLE K Ot Z79.899 OTHER MCC (CURRENT) DRUG THERAPY 06/17/2016 KJ DO, CHRISTELLE K Ot Z87.891 PERSONAL HISTORY OF NICOTINE DEPENDENCE 06/18/2016 KJ DO, CHRISTELLE K Ot B37.0 CANDIDAL STOMATITIS 06/18/2016 KJ DO, CHRISTELLE K Ot E11.9 TYPE 2 DIABETES MELLITUS WITHOUT COMPLIC 06/18/2016 KJ DO, CHRISTELLE K Ot I10 ESSENTIAL (PRIMARY) HYPERTENSION 06/18/2016 KJ DO, CHRISTELLE K Ot J44.9 CHRONIC OBSTRUCTIVE PULMONARY DISEASE, U 06/18/2016 KJ DO, CHRISTELLE K Ot K13.79 OTHER LESIONS OF ORAL MUCOSA 06/18/2016 KJ DO, CHRISTELLE K Ot Z79.4 MCC (CURRENT) USE OF INSULIN 06/18/2016 KJ DO, CHRISTELLE K Ot Z79.899 OTHER MCC (CURRENT) DRUG THERAPY 06/18/2016 KJ DO, CHRISTELLE K Ot Z87.891 PERSONAL HISTORY OF NICOTINE DEPENDENCE 06/20/2016 SERENITY BARNES MD Ot E11.9 TYPE 2 DIABETES MELLITUS WITHOUT COMPLIC 06/20/2016 SERENITY BARNES MD Ot E66.9 OBESITY, UNSPECIFIED 06/20/2016 SERENITY BARNES MD Ot I10 ESSENTIAL (PRIMARY) HYPERTENSION 06/20/2016 SERENITY BARNES MD Ot J44.1 CHRONIC OBSTRUCTIVE PULMONARY DISEASE W 06/20/2016 SERENITY BARNES MD Ot R00.0 TACHYCARDIA, UNSPECIFIED 06/20/2016 SERENITY BARNES MD Ot Z99.81 DEPENDENCE ON SUPPLEMENTAL OXYGEN 06/23/2016 DEVORAH PETERSON MD S Ot J44.1 CHRONIC OBSTRUCTIVE PULMONARY DISEASE W 06/23/2016 DEVORAH PETERSON MD S Ot R04.2 HEMOPTYSIS 07/13/2016 MARGO CAMPOVERDE APRN Ot J30.9 ALLERGIC RHINITIS, UNSPECIFIED 07/13/2016 MARGO CAMPOVERDE APRN Ot J44.9 CHRONIC OBSTRUCTIVE PULMONARY DISEASE, U 07/13/2016 MARGO CAMPOVERDE APRN Ot R09.02 HYPOXEMIA 07/21/2016 KJ CHRISTELLE Ot 491.21 OBSTR CHRONIC BRONCHITIS, W (ACUTE) EXAC 07/21/2016 KJ MARIA ANTONIAA [place] Ot 786.05 SHORTNESS OF BREATH 07/21/2016 SERENITY BARNES MD, Ot E11.9 TYPE 2 DIABETES MELLITUS WITHOUT COMPLIC 07/21/2016 SERENITY BARNES MD Ot E66.9 OBESITY, UNSPECIFIED 07/21/2016 SERENITY BARNES MD Ot I10 ESSENTIAL (PRIMARY) HYPERTENSION 07/21/2016 SERENITY BARNES MD, Ot J44.1 CHRONIC OBSTRUCTIVE PULMONARY DISEASE W 07/21/2016 SERENITY BARNES MD Ot R00.0 TACHYCARDIA, UNSPECIFIED 07/21/2016 SERENITY BARNES MD Ot Z99.81 DEPENDENCE ON SUPPLEMENTAL OXYGEN 07/29/2016 MARGO CAMPOVERDE APRN Ot J30.9 ALLERGIC RHINITIS, UNSPECIFIED 07/29/2016 MARGO CAMPOVERDE APRN Ot J44.9 CHRONIC OBSTRUCTIVE PULMONARY DISEASE, U 07/29/2016 MARGO CAMPOVERDE APRN Ot R09.02 HYPOXEMIA 08/17/2016 JOHN KILPATRICK APRN Ot E11.9 TYPE 2 DIABETES MELLITUS WITHOUT COMPLIC 08/17/2016 JOHN KILPATRICK APRN Ot E66.9 OBESITY, UNSPECIFIED 08/17/2016 JOHN KILPATRICK APRN Ot I10 ESSENTIAL (PRIMARY) HYPERTENSION 08/17/2016 JOHN KILPATRICK APRN Ot J44.1 CHRONIC OBSTRUCTIVE PULMONARY DISEASE W 08/17/2016 JOHN KILPATRICK APRN Ot R06.02 SHORTNESS OF BREATH 08/17/2016 JOHN KILPATRICK APRN Ot R07.89 OTHER CHEST PAIN 08/17/2016 JOHN KILPATRICK APRN Ot Z79.4 MCC (CURRENT) USE OF INSULIN 08/17/2016 JOHN KILPATRICK APRN Ot Z79.84 NEWSPAPER PHOTO EDITOR (CURRENT) USE OF ORAL HYPOGLYC 08/17/2016 JOHN KILPATRICK APRN Ot Z79.899 OTHER MCC (CURRENT) DRUG THERAPY 08/17/2016 JOHN KILPATRICK APRN Ot Z87.891 PERSONAL HISTORY OF NICOTINE DEPENDENCE 08/17/2016 JOHN KILPATRICK APRN Ot Z99.81 DEPENDENCE ON SUPPLEMENTAL OXYGEN 08/18/2016 JOHN KILPATRICK APRN Ot E11.9 TYPE 2 DIABETES MELLITUS WITHOUT COMPLIC 08/18/2016 JOHN KILPATRICK APRN Ot E66.9 OBESITY, UNSPECIFIED 08/18/2016 JOHN KILPATRICK APRN Ot I10 ESSENTIAL (PRIMARY) HYPERTENSION 08/18/2016 JOHN KILPATRICK APRN Ot J44.1 CHRONIC OBSTRUCTIVE PULMONARY DISEASE W 08/18/2016 JOHN KILPATRICK APRN Ot R06.02 SHORTNESS OF BREATH 08/18/2016 JOHN KILPATRICK APRN Ot R07.89 OTHER CHEST PAIN 08/18/2016 JOHN KILPATRICK APRN Ot 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 08/18/2016 JOHN KILPATRICK APRN Ot Z79.84 MCC (CURRENT) USE OF ORAL HYPOGLYC 08/18/2016 JOHN KILPATRICK APRN Ot Z79.899 OTHER MCC (CURRENT) DRUG THERAPY 08/18/2016 JOHN KILPATRICK APRN Ot Z87.891 PERSONAL HISTORY OF NICOTINE DEPENDENCE 08/18/2016 JOHN KILPATRICK APRN Ot Z99.81 DEPENDENCE ON SUPPLEMENTAL OXYGEN 08/20/2016 CHRISTELLE UNDERWOOD DO Ot 491.21 OBSTR CHRONIC BRONCHITIS, W (ACUTE) EXAC 08/20/2016 CHRISTELLE UNDERWOOD DO Ot 786.05 SHORTNESS OF BREATH 08/24/2016 MARGO CAMPOVERDE APRN Ot J30.9 ALLERGIC RHINITIS, UNSPECIFIED 08/24/2016 MARGO CAMPOVERDE APRN Ot J44.9 CHRONIC OBSTRUCTIVE PULMONARY DISEASE, U 08/24/2016 MARGO CAMPOVERDE APRN Ot R09.02 HYPOXEMIA 11/09/2016 CHRISTELLE UNDERWOOD DO Ot L03.311 CELLULITIS OF ABDOMINAL WALL 11/09/2016 CHRISTELLE UNDERWOOD DO Ot M25.552 PAIN IN LEFT HIP 11/09/2016 CHRISTELLE UNDERWOOD DO Ot S00.11XA CONTUSION OF RIGHT EYELID AND PERIOCULAR 11/09/2016 CHRISTELLE UNDERWOOD DO Ot S70.02XA CONTUSION OF LEFT HIP, INITIAL ENCOUNTER 11/09/2016 CHRISTELLE UNDERWOOD DO Ot X58.XXXA EXPOSURE TO OTHER SPECIFIED FACTORS, INI 11/09/2016 CHRISTELLE UNDERWOOD DO Ot Y99.8 OTHER EXTERNAL CAUSE STATUS 11/09/2016 KJ CARRANZA, CHRISTELLE Mcmanus Ot Z23 ENCOUNTER FOR IMMUNIZATION 11/10/2016 KJ CARRANZA CHRISTELLE Mcmanus Ot L03.311 CELLULITIS OF ABDOMINAL WALL 11/10/2016 KJ CARRANZA, CHRISTELLE Mcmanus Ot M25.552 PAIN IN LEFT HIP 11/10/2016 KJ CARRANZA, CHRISTELLE Mcmanus Ot S00.11XA CONTUSION OF RIGHT EYELID AND PERIOCULAR 11/10/2016 KJ CARRANZA, CHRISTELLE [place] Ot S70.02XA CONTUSION OF LEFT HIP, INITIAL ENCOUNTER 11/10/2016 KJ CARRANZA CHRISTELLE Mcmanus Ot X58.XXXA EXPOSURE TO OTHER SPECIFIED FACTORS, INI 11/10/2016 KJ CARRANZA CHRISTELLE Mcmanus Ot Y99.8 OTHER EXTERNAL CAUSE STATUS 11/10/2016 KJ CARRANZA CHRISTELLE Mcmanus Ot Z23 ENCOUNTER FOR IMMUNIZATION 11/13/2016 NARCISOLENDER DO, TEMITOPE Moran Ot A41.9 SEPSIS, UNSPECIFIED ORGANISM 11/13/2016 GELLENDER DO, TEMITOPE Moran Ot A60.09 HERPESVIRAL INFECTION OF OTHER UROGENITA 11/13/2016 GELLENDER DO, TEMITOPE Moran Ot D64.9 ANEMIA, UNSPECIFIED 11/13/2016 GELLENDER DO, TEMITOPE Moran Ot E11.9 TYPE 2 DIABETES MELLITUS WITHOUT COMPLIC 11/13/2016 GELLENDER DO, TEMITOPE Moran Ot E66.01 MORBID (SEVERE) OBESITY DUE TO EXCESS CA 11/13/2016 GELLENDER DO, TEMITOPE Moran Ot F32.9 MAJOR DEPRESSIVE DISORDER, SINGLE EPISOD 11/13/2016 GELLENDER DO, TEMITOPE Moran Ot F41.9 ANXIETY DISORDER, UNSPECIFIED 11/13/2016 GELLENDER DO, TEMITOPE Moran Ot G47.30 SLEEP APNEA, UNSPECIFIED 11/13/2016 GELLENDER DOTEMITOPE Ot I10 ESSENTIAL (PRIMARY) HYPERTENSION 11/13/2016 GELLENDER DOTEMITOPE Ot J18.9 PNEUMONIA, UNSPECIFIED ORGANISM 11/13/2016 GELLENDER DOTEMITOPE Ot J44.0 CHRONIC OBSTRUCTIVE PULMON DISEASE W ACU 11/13/2016 GELLENDER DO, TEMITOPE Moran Ot J44.1 CHRONIC OBSTRUCTIVE PULMONARY DISEASE W 11/13/2016 GELLENDER DOTEMITOPE Ot J45.909 UNSPECIFIED ASTHMA, UNCOMPLICATED 11/13/2016 GELLENDER DO, TEMITOPE Moran Ot J96.22 ACUTE AND CHRONIC RESPIRATORY FAILURE [place] 11/13/2016 JOSE CARRANZA TEMITOPE Luisa Ot K21.9 GASTRO-ESOPHAGEAL REFLUX DISEASE WITHOUT 11/13/2016 JOSE CARRANZATEMITOPE Ot L03.311 CELLULITIS OF ABDOMINAL WALL 11/13/2016 JOSE CARRANZATEMITOPE Ot M79.7 FIBROMYALGIA 11/13/2016 JOSE CARRANZA TEMITOPE Luisa Ot Z68.41 BODY MASS INDEX (BMI) 40.0-44.9, ADULT 11/13/2016 JOSE CARRANZATEMITOPE Ot Z87.891 PERSONAL HISTORY OF NICOTINE DEPENDENCE 11/13/2016 JOSE CARRANZA TEMITOPE Luisa Ot Z91.19 PATIENT'S NONCOMPLIANCE W [facility] MEDICAL TR 11/26/2016 ADA SOLIS MD Ot S30.861A INSECT BITE (NONVENOMOUS) OF ABDOMINAL W 11/26/2016 ADA SOLIS MD Ot Z53.21 PROC/TRTMT NOT CRD OUT D/T PT LV BEF SEE 11/26/2016 ADA SOLIS MD Ot S30.861A INSECT BITE (NONVENOMOUS) OF ABDOMINAL W 11/26/2016 ADA SOLIS MD Ot Z53.21 PROC/TRTMT NOT CRD OUT D/T PT LV BEF SEE 11/28/2016 ADA SOLIS MD Ot S30.861A INSECT BITE (NONVENOMOUS) OF ABDOMINAL W 11/28/2016 ADA SOLIS MD Ot Z53.21 PROC/TRTMT NOT CRD OUT D/T PT LV BEF SEE 01/18/2017 SERENITY BARNES MD Ot E11.9 TYPE 2 DIABETES MELLITUS WITHOUT COMPLIC 01/18/2017 SEREINTY BARNES MD Ot E66.9 OBESITY, UNSPECIFIED 01/18/2017 SERENITY BARNES MD Ot I10 ESSENTIAL (PRIMARY) HYPERTENSION 01/18/2017 SERENITY BARNES MD Ot J44.1 CHRONIC OBSTRUCTIVE PULMONARY DISEASE W 01/18/2017 SERENITY BARNES MD Ot R00.0 TACHYCARDIA, UNSPECIFIED 01/18/2017 SERENITY BARNES MD Ot Z99.81 DEPENDENCE ON SUPPLEMENTAL OXYGEN 02/09/2017 TEMITOPE GARCIA DO Ot J44.9 CHRONIC OBSTRUCTIVE PULMONARY DISEASE, U 03/19/2017 JOSE CARRANZA TEMITOPE Luisa Ot J44.9 CHRONIC OBSTRUCTIVE PULMONARY DISEASE, U 03/20/2017 CHRISTELLE UNDERWOOD DO Ot 491.21 OBSTR CHRONIC BRONCHITIS, W (ACUTE) EXAC 03/20/2017 CHRISTELLE UNDERWOOD DO Ot 786.05 SHORTNESS OF BREATH 03/20/2017 MARIAH LAI MD Ot E11.9 TYPE 2 DIABETES MELLITUS WITHOUT COMPLIC 03/20/2017 MARIAH LAI MD Ot E66.9 OBESITY, UNSPECIFIED 03/20/2017 MARIAH LAI MD Ot F41.8 OTHER SPECIFIED ANXIETY DISORDERS 03/20/2017 MARIAH LAI MD Ot G47.30 SLEEP APNEA, UNSPECIFIED 03/20/2017 MARIAH LAI MD Ot I10 ESSENTIAL (PRIMARY) HYPERTENSION 03/20/2017 MARIAH LAI MD Ot J43.9 EMPHYSEMA, UNSPECIFIED 03/20/2017 MARIAH LAI MD Ot J45.909 UNSPECIFIED ASTHMA, UNCOMPLICATED 03/20/2017 MARIAH LAI MD Ot J96.10 CHRONIC RESPIRATORY FAILURE, UNSP W HYPO 03/20/2017 MARIAH LAI MD Ot K21.9 GASTRO-ESOPHAGEAL REFLUX DISEASE WITHOUT 03/20/2017 MARIAH LAI MD Ot M25.519 PAIN IN UNSPECIFIED SHOULDER 03/20/2017 MARIAH LAI MD Ot R07.9 CHEST PAIN, UNSPECIFIED 03/20/2017 MARIAH LAI MD Ot Z68.41 BODY MASS INDEX (BMI) 40.0-44.9, ADULT 03/20/2017 MARIAH LAI MD Ot 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 03/20/2017 MARIAH LAI MD Ot Z79.82 MCC (CURRENT) USE OF ASPIRIN 03/20/2017 MARIAH LAI MD Ot Z79.84 NEWSPAPER PHOTO EDITOR (CURRENT) USE OF ORAL HYPOGLYC 03/20/2017 MARIAH LAI MD Ot Z82.49 FAMILY HX OF ISCHEM HEART DIS AND OTH DI 03/20/2017 MARIAH LAI MD Ot Z83.3 FAMILY HISTORY OF DIABETES MELLITUS 03/20/2017 MARIAH LAI MD Ot Z83.6 FAMILY HISTORY OF OTHER DISEASES OF THE 03/20/2017 MARIAH LAI MD, Ot Z87.891 PERSONAL HISTORY OF NICOTINE DEPENDENCE 03/20/2017 MARIAH LAI MD Ot Z90.49 ACQUIRED ABSENCE OF OTHER SPECIFIED PART 03/20/2017 MARIAH LAI MD Ot Z99.81 DEPENDENCE ON SUPPLEMENTAL OXYGEN 03/22/2017 MARIAH LAI MD Ot M54.5 LOW BACK PAIN 03/22/2017 MARIAH LAI MD Ot R07.9 CHEST PAIN, UNSPECIFIED 03/23/2017 MARIAH LAI MD Ot E11.9 TYPE 2 DIABETES MELLITUS WITHOUT COMPLIC 03/23/2017 MARIAH LAI MD Ot E66.9 OBESITY, UNSPECIFIED 03/23/2017 MARIAH LAI MD Ot F41.8 OTHER SPECIFIED ANXIETY DISORDERS 03/23/2017 MARIAH LAI MD Ot G47.30 SLEEP APNEA, UNSPECIFIED 03/23/2017 MARIAH LAI MD Ot I10 ESSENTIAL (PRIMARY) HYPERTENSION 03/23/2017 MARIAH LAI MD Ot J43.9 EMPHYSEMA, UNSPECIFIED 03/23/2017 MARIAH LAI MD Ot J45.909 UNSPECIFIED ASTHMA, UNCOMPLICATED 03/23/2017 MARIAH LAI MD Ot J96.10 CHRONIC RESPIRATORY FAILURE, UNSP W HYPO 03/23/2017 MARIAH LAI MD Ot K21.9 GASTRO-ESOPHAGEAL REFLUX DISEASE WITHOUT 03/23/2017 MARIAH LAI MD Ot M25.519 PAIN IN UNSPECIFIED SHOULDER 03/23/2017 MARIAH LAI MD Ot R07.9 CHEST PAIN, UNSPECIFIED 03/23/2017 MARIAH LAI MD Ot Z68.41 BODY MASS INDEX (BMI) 40.0-44.9, ADULT 03/23/2017 MARIAH LAI MD Ot 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 03/23/2017 MARIAH LAI MD Ot Z79.82 MCC (CURRENT) USE OF ASPIRIN 03/23/2017 MARIAH LAI MD Ot Z79.84 NEWSPAPER PHOTO EDITOR (CURRENT) USE OF ORAL HYPOGLYC 03/23/2017 MARIAH LAI MD Ot Z82.49 FAMILY HX OF ISCHEM HEART DIS AND OTH DI 03/23/2017 MARIAH LAI MD Ot Z83.3 FAMILY HISTORY OF DIABETES MELLITUS 03/23/2017 MARIAH LAI MD Ot Z83.6 FAMILY HISTORY OF OTHER DISEASES OF THE 03/23/2017 MARIAH LAI MD Ot Z87.891 PERSONAL HISTORY OF NICOTINE DEPENDENCE 03/23/2017 MARIAH LAI MD Ot Z90.49 ACQUIRED ABSENCE OF OTHER SPECIFIED PART 03/23/2017 MARIAH LAI MD Ot Z99.81 DEPENDENCE ON SUPPLEMENTAL OXYGEN 04/07/2017 JOSE CARRANZATEMITOPE Ot E11.65 TYPE 2 DIABETES MELLITUS WITH HYPERGLYCE 04/07/2017 JOSE TEMITOPE CARRANZA Ot E66.9 OBESITY, UNSPECIFIED 04/07/2017 JOSE CARRANZATEMITOPE Ot I10 ESSENTIAL (PRIMARY) HYPERTENSION 04/07/2017 JOSE TEMITOPE CARRANZA Ot J44.1 CHRONIC OBSTRUCTIVE PULMONARY DISEASE W 04/07/2017 JOSE CARRANZATEMITOPE Ot R09.81 NASAL CONGESTION 04/07/2017 JOSE CARRANZATEMITOPE Ot Z79.4 MCC (CURRENT) USE OF INSULIN 04/07/2017 JOSE CARRANZATEMITOPE Ot Z79.84 MCC (CURRENT) USE OF ORAL HYPOGLYC 04/07/2017 JOSE CARRANZATEMITOPE Ot 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 04/07/2017 JOSE TEMITOPE CARRANZA Ot Z87.891 PERSONAL HISTORY OF NICOTINE DEPENDENCE 04/07/2017 JOSE TEMITOPE CARRANZA Ot Z99.81 DEPENDENCE ON SUPPLEMENTAL OXYGEN 04/12/2017 JOSE TEMITOPE CARRANZA Ot J44.9 CHRONIC OBSTRUCTIVE PULMONARY DISEASE, U 05/04/2017 DILLAN MOREIRA, Rocky MARTINEZ Ot R07.9 CHEST PAIN, UNSPECIFIED 05/09/2017 JOSE TEMITOPE CARRANZA Ot J44.9 CHRONIC OBSTRUCTIVE PULMONARY DISEASE, U 05/17/2017 DILLAN MOREIRA, Rocky MARTINEZ Ot R07.9 CHEST PAIN, UNSPECIFIED 05/18/2017 NARCISOTEMITOPE PARRA DO Ot J44.9 CHRONIC OBSTRUCTIVE PULMONARY DISEASE, U 05/19/2017 NARCISOLENDER TEMITOPE CARRANZA Ot J44.9 CHRONIC OBSTRUCTIVE PULMONARY DISEASE, U 05/21/2017 JOHN KILPATRICK APRN Ot 491.21 OBSTR CHRONIC BRONCHITIS, W (ACUTE) EXAC 05/21/2017 JOHN KILPATRICK APRN Ot 786.50 CHEST PAIN NOS 06/08/2017 DAR VALDIVIA DO Ot Z12.31 ENCNTR SCREEN MAMMOGRAM FOR MALIGNANT NE 06/10/2017 VAL, WILLY PAD MACHINE FEEDER Ot E11.9 TYPE 2 DIABETES MELLITUS WITHOUT COMPLIC 06/10/2017 VAL, WILLY PAD MACHINE FEEDER Ot F32.9 MAJOR DEPRESSIVE DISORDER, SINGLE EPISOD 06/10/2017 VAL, WILLY PAD MACHINE FEEDER Ot F41.9 ANXIETY DISORDER, UNSPECIFIED 06/10/2017 VAL, WILLY PAD MACHINE FEEDER Ot J44.1 CHRONIC OBSTRUCTIVE PULMONARY DISEASE W 06/10/2017 VAL, WILLY PAD MACHINE FEEDER Ot R06.02 SHORTNESS OF BREATH 06/10/2017 VAL, WILLY PAD MACHINE FEEDER Ot 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 06/10/2017 VAL, WILLY PAD MACHINE FEEDER Ot Z82.49 FAMILY HX OF ISCHEM HEART DIS AND OTH DI 06/10/2017 VAL, WILLY PAD MACHINE FEEDER Ot Z87.59 PERSONAL HISTORY OF COMP OF PREG, CHLDBR 06/10/2017 VAL, WILLY PAD MACHINE FEEDER Ot Z87.891 PERSONAL HISTORY OF NICOTINE DEPENDENCE 06/10/2017 VAL, WILLY PAD MACHINE FEEDER Ot Z98.51 TUBAL LIGATION STATUS 06/11/2017 TEMITOPE GARCIA DO Ot J44.9 CHRONIC OBSTRUCTIVE PULMONARY DISEASE, U 06/16/2017 VAL, WILLY PAD MACHINE FEEDER Ot E11.9 TYPE 2 DIABETES MELLITUS WITHOUT COMPLIC 06/16/2017 VAL, WILLY PAD MACHINE FEEDER Ot F32.9 MAJOR DEPRESSIVE DISORDER, SINGLE EPISOD 06/16/2017 VAL, WILLY PAD MACHINE FEEDER Ot F41.9 ANXIETY DISORDER, UNSPECIFIED 06/16/2017 VAL, WILLY PAD MACHINE FEEDER Ot J44.1 CHRONIC OBSTRUCTIVE PULMONARY DISEASE W 06/16/2017 VAL, WILLY PAD MACHINE FEEDER Ot R06.02 SHORTNESS OF BREATH 06/16/2017 VAL, WILLY PAD MACHINE FEEDER Ot Z79.4 MCC (CURRENT) USE OF INSULIN 06/16/2017 VAL, WILLY PAD MACHINE FEEDER Ot Z82.49 FAMILY HX OF ISCHEM HEART DIS AND OTH DI 06/16/2017 VAL, WILLY PAD MACHINE FEEDER Ot Z87.59 PERSONAL HISTORY OF COMP OF PREG, CHLDBR 06/16/2017 VAL, WILLY PAD MACHINE FEEDER Ot Z87.891 PERSONAL HISTORY OF NICOTINE DEPENDENCE 06/16/2017 VAL, WILLY PAD MACHINE FEEDER Ot Z98.51 TUBAL LIGATION STATUS 06/16/2017 VALDIVIA DO, DAR C Ot N85.8 OTHER SPECIFIED NONINFLAMMATORY DISORDER 06/16/2017 VALDIVIA DO, DAR C Ot R10.2 PELVIC AND PERINEAL PAIN 06/16/2017 VALDIVIA DO, DAR C Ot Z12.31 ENCNTR SCREEN MAMMOGRAM FOR MALIGNANT NE 06/18/2017 GELLENDER DO, TEMITOPE A Ot J44.9 CHRONIC OBSTRUCTIVE PULMONARY DISEASE, U 06/19/2017 GELLENDER DO, TEMITOPE A Ot J44.9 CHRONIC OBSTRUCTIVE PULMONARY DISEASE, U 06/22/2017 GELLENDER DO, TEMITOPE A Ot J44.9 CHRONIC OBSTRUCTIVE PULMONARY DISEASE, U 06/23/2017 GELLENDER DO, TEMITOPE A Ot J44.9 CHRONIC OBSTRUCTIVE PULMONARY DISEASE, U 06/25/2017 GELLENDER DO, TEMITOPE A Ot J44.9 CHRONIC OBSTRUCTIVE PULMONARY DISEASE, U 07/01/2017 VALDIVIA DO, DAR C Ot N85.8 OTHER SPECIFIED NONINFLAMMATORY DISORDER 07/01/2017 VALDIVIA DO, DAR C Ot R10.2 PELVIC AND PERINEAL PAIN 07/01/2017 VALDIVIA DO, DAR C Ot Z12.31 ENCNTR SCREEN MAMMOGRAM FOR MALIGNANT NE 07/12/2017 VALDIVIA DO, DAR C Ot N85.8 OTHER SPECIFIED NONINFLAMMATORY DISORDER 07/12/2017 VALDIVIA DO, DAR C Ot R10.2 PELVIC AND PERINEAL PAIN 07/12/2017 VALDIVIA DO, DAR C Ot Z12.31 ENCNTR SCREEN MAMMOGRAM FOR MALIGNANT NE 07/23/2017 HARRIETT MOREIRA, FREEDOM Hidalgo Ot K43.9 VENTRAL HERNIA WITHOUT OBSTRUCTION OR GA 08/04/2017 HARRIETT MOREIRA, FREEDOM Hidalgo Ot K43.9 VENTRAL HERNIA WITHOUT OBSTRUCTION OR GA 08/13/2017 GELLENDER DO, TEMITOPE A Ot J44.9 CHRONIC OBSTRUCTIVE PULMONARY DISEASE, U 08/17/2017 GELLENDER DO, TEMITOPE A Ot J44.9 CHRONIC OBSTRUCTIVE PULMONARY DISEASE, U 09/20/2017 GELLENDER DO, TEMITOPE A Ot J44.9 CHRONIC OBSTRUCTIVE PULMONARY DISEASE, U 09/22/2017 GELLENDER DO, TEMITOPE A Ot J44.9 CHRONIC OBSTRUCTIVE PULMONARY DISEASE, U 09/22/2017 GELLENDER DO, TEMITOPE A Ot J44.9 CHRONIC OBSTRUCTIVE PULMONARY DISEASE, U 11/11/2017 TEMITOPE GARCIA DO Ot J44.9 CHRONIC OBSTRUCTIVE PULMONARY DISEASE, U Procedures Code [place] [address] MAMMOGRAM, SCREENING 12/09/2011 94.68 02/02/2012 29485 PSYCH PHARM MGMT 08/25/2012 60171 OXIMETRY 10/26/2012 80301 PAP SMEAR 11/08/2012 69234 MEASURE BLOOD OXYGEN LEVEL 11/08/2012 Q0091 PAP SMEAR OBTAIN SMEAR 11/08/2012 95259 MEASURE BLOOD OXYGEN LEVEL 11/09/2012 77571 URINE TEST (IN- HOUSE) 12/05/2012 01866 UA W/ CULTURE IF INDICATED 12/05/2012 66481 COLP W/ ECC 2012 59744 US PELVIC COMPL (REFLEX CPT - 25296) 2012 76910 THERAPUTIC INJ SQ/IM 12/13/2012 J2930 SOLUMEDROL INJ 12/13/[address] [facility], 12/15/2012 67898 ROUTINE VENIPUNCTURE 01/06/2013 65938 THERAPUTIC INJ SQ/IM 01/06/2013 35196 A1C (IN-HOUSE) 01/06/2013 40650 CBC 01/06/2013 14439 CMP 01/06/2013 2508415 GFR CALC (RESULT ONLY) 01/06/2013 27110 TSH 01/06/2013 31590 OXIMETRY 01/09/2013 44443 OXIMETRY 01/09/2013 J2930 SOLUMEDROL INJ 01/09/2013 09647 XRAY CHEST 2 VIEW 01/20/2013 62053 OXIMETRY 01/20/2013 85180 MEASURE BLOOD OXYGEN LEVEL 02/14/2013 49274 OXIMETRY 02/24/2013 84977 THERAPUTIC INJ SQ/IM 02/24/2013 J2930 SOLUMEDROL INJ 02/24/2013 75844 MEASURE BLOOD OXYGEN LEVEL 06/02/2013 J2930 SOLUMEDROL INJ 06/16/2013 51926 THERAPUTIC INJ SQ/IM 06/16/2013 15199 OXIMETRY 06/21/2013 30225 A1C (IN-HOUSE) 06/21/2013 28338 OXIMETRY 06/26/2013 G0008 FLU ADMINISTRATION ( MEDICARE ONLY) 07/18/2013 60781 THERAPUTIC INJ SQ/IM 09/06/2013 [id number] SOLUMEDROL INJ 09/06/2013 67573 MEASURE BLOOD OXYGEN LEVEL 09/07/2013 30561 OXIMETRY 10/05/2013 27703 OXIMETRY 10/24/2013 78254 A1C (IN-HOUSE) 11/16/2013 97152 BONE SCAN, LIMITED 11/16/2013 PODIATRY CONRADO FRAZIER 04/09/2014 45669 OXIMETRY 04/09/2014 13938 A1C (IN-HOUSE) 04/09/2014 27381 OXIMETRY 05/02/2014 87338 OXIMETRY 06/04/2014 41251 ROUTINE VENIPUNCTURE 07/17/2014 55578 CMP 07/17/2014 53427 CBC 07/17/2014 78549 OXIMETRY 07/17/2014 89836 AMERITOX 07/17/2014 26695 CULTURE WOUND (AEROBIC) 07/23/2014 46390 OXIMETRY 07/23/2014 54947 OXIMETRY 08/03/2014 G0008 FLU ADMINISTRATION ( MEDICARE ONLY) 08/03/2014 56762 OXIMETRY 08/10/2014 69325 XRAY CHEST 2 VIEW 08/20/2014 85107 MAMMOGRAM, SCREENING 08/20/2014 83767 SLEEP STUDY (HOSPITAL- SLEEP STUDY) 08/20/2014 31744 GLUCOSE FINGER STICK 09/19/2014 89351 UA W/ CULTURE IF INDICATED 09/19/2014 47703 ROUTINE VENIPUNCTURE 10/31/2014 [id number] GFR CALC (RESULT ONLY) 10/31/2014 72008 CMP 10/31/2014 60824 OXIMETRY 12/14/2014 00607 OXIMETRY 12/21/2014 [id number] 10/25/2015 Results Test Result Range Complete blood count (CBC) with automated white blood cell (WBC) differential - 08/17/16 14:42 Blood leukocytes automated count (number/volume) 14.0 10*3/uL 4.3-11.0 Blood erythrocytes automated count (number/volume) 3.80 10*6/uL 4.35-5.85 Venous blood hemoglobin measurement (mass/volume) 11.1 g/dL 11.5-16.0 Blood hematocrit (volume fraction) 37 % 35-52 Automated erythrocyte mean corpuscular volume 98 [foz_us] 80-99 Automated erythrocyte mean corpuscular hemoglobin (mass per erythrocyte) 29 pg 25-34 Automated erythrocyte mean corpuscular hemoglobin concentration measurement ( mass/volume) 30 g/dL 32-36 Automated erythrocyte distribution width ratio 15.0 % 10.0-14.5 Automated blood platelet count (count/volume) 298 10*3/uL 130-400 Automated blood platelet mean volume measurement 9.3 [foz_us] 7.4-10.4 Automated blood neutrophils/100 leukocytes 89 % 42-75 Automated blood lymphocytes/100 leukocytes 7 % 12-44 Blood monocytes/100 leukocytes 3 % 0-12 Automated blood eosinophils/100 leukocytes 1 % 0-10 Automated blood basophils/100 leukocytes 0 % 0-10 Blood neutrophils automated count (number/volume) 12.5 10*3 1.8-7.8 Blood lymphocytes automated count (number/volume) 0.9 10*3 1.0-4.0 Blood monocytes automated count (number/volume) 0.5 10*3 0.0-1.0 Automated eosinophil count 0.1 10*3/uL 0.0-0.3 Automated blood basophil count (count/volume) 0.0 10*3/uL 0.0-0.1 Blood manual differential performed detection - 08/17/16 14:42 Blood monocytes/100 leukocytes 1 % NRG Manual blood segmented neutrophils/100 leukocytes 89 % NRG Blood band neutrophils/100 leukocytes 1 % NRG Manual blood lymphocytes/100 leukocytes 8 % NRG Manual eosinophils/100 leukocytes in nose 1 % NRG Manual blood basophils/100 leukocytes 0 % NRG Blood erythrocyte morphology finding identification NORMAL NR Whole blood basic metabolic panel - 08/17/16 14:42 Serum or plasma sodium measurement (moles/volume) 138 mmol/L 135-145 Serum or plasma potassium measurement (moles/volume) 4.8 mmol/L 3.6-5.0 Serum or plasma chloride measurement (moles/volume) 102 mmol/L 98-107 Carbon dioxide 29 mmol/L 21-32 Serum or plasma anion gap determination (moles/volume) 7 mmol/L 5-14 Serum or plasma urea nitrogen measurement (mass/volume) 18 mg/dL 7-18 Serum or plasma creatinine measurement (mass/volume) 0.74 mg/dL 0.60-1.30 Serum or plasma urea nitrogen/creatinine mass ratio 24 NRG Serum or plasma creatinine measurement with calculation of estimated glomerular filtration rate > NRG Serum or plasma glucose measurement (mass/volume) 238 mg/dL 70-105 Serum or plasma calcium measurement (mass/volume) 8.8 mg/dL 8.5-10.1 Serum or plasma troponin i.cardiac measurement (mass/volume) - 08/17/16 14:42 Serum or plasma troponin i.cardiac measurement (mass/volume) < ng/ mL <0.30 Complete blood count (CBC) with automated white blood cell (WBC) differential - 11/11/16 10:10 Blood leukocytes automated count (number/volume) 19.0 10*3/uL 4.3-11.0 Blood erythrocytes automated count (number/volume) 3.20 10*6/uL 4.35-5.85 Venous blood hemoglobin measurement (mass/volume) 8.8 g/dL 11.5-16.0 Blood hematocrit (volume fraction) 31 % 35-52 Automated erythrocyte mean corpuscular volume 97 [foz_us] 80-99 Automated erythrocyte mean corpuscular hemoglobin (mass per erythrocyte) 28 pg 25-34 Automated erythrocyte mean corpuscular hemoglobin concentration measurement ( mass/volume) 28 g/dL 32-36 Automated erythrocyte distribution width ratio 14.5 % 10.0-14.5 Automated blood platelet count (count/volume) 364 10*3/uL 130-400 Automated blood platelet mean volume measurement 9.5 [foz_us] 7.4-10.4 Automated blood neutrophils/100 leukocytes 87 % 42-75 Automated blood lymphocytes/100 leukocytes 7 % 12-44 Blood monocytes/100 leukocytes 5 % 0-12 Automated blood eosinophils/100 leukocytes 1 % 0-10 Automated blood basophils/100 leukocytes 0 % 0-10 Blood neutrophils automated count (number/volume) 16.5 10*3 1.8-7.8 Blood lymphocytes automated count (number/volume) 1.3 10*3 1.0-4.0 Blood monocytes automated count (number/volume) 1.0 10*3 0.0-1.0 Automated eosinophil count 0.2 10*3/uL 0.0-0.3 Automated blood basophil count (count/volume) 0.0 10*3/uL 0.0-0.1 Blood lactic acid measurement (moles/volume) - 11/11/16 10:10 Blood lactic acid measurement (moles/volume) 0.6 mmol/L 0.5-2.0 PT panel in platelet poor plasma by coagulation assay - 11/11/16 10:10 Prothrombin time (PT) in platelet poor plasma by coagulation assay 12.9 s 12.2-14.7 INR in platelet poor plasma or blood by coagulation assay 1.0 0.8-1.4 Activated partial thromboplastin time (aPTT) in platelet poor plasma bycoagulation assay - 11/11/16 10:10 Activated partial thromboplastin time (aPTT) in platelet poor plasma bycoagulation assay 29 s 24-35 Comprehensive metabolic panel - 11/11/16 10:10 Serum or plasma sodium measurement (moles/volume) 140 mmol/L 135-145 Serum or plasma potassium measurement (moles/volume) 4.4 mmol/L 3.6-5.0 Serum or plasma chloride measurement (moles/volume) 93 mmol/L 98-107 Carbon dioxide 33 mmol/L 21-32 Serum or plasma anion gap determination (moles/volume) 14 mmol/L 5-14 Serum or plasma urea nitrogen measurement (mass/volume) 10 mg/dL 7-18 Serum or plasma creatinine measurement (mass/volume) 0.63 mg/dL 0.60-1.30 Serum or plasma urea nitrogen/creatinine mass ratio 16 NRG Serum or plasma creatinine measurement with calculation of estimated glomerular filtration rate > NRG Serum or plasma glucose measurement (mass/volume) 136 mg/dL 70-105 Serum or plasma calcium measurement (mass/volume) 9.1 mg/dL 8.5-10.1 Serum or plasma total bilirubin measurement (mass/volume) 0.3 mg/dL 0.1-1.0 Serum or plasma alkaline phosphatase measurement (enzymatic activity/volume) 89 U/L 40-136 Serum or plasma aspartate aminotransferase measurement (enzymatic activity/ volume) 11 U/L 5-34 Serum or plasma alanine aminotransferase measurement (enzymatic activity/volume ) 13 U/L 0-55 Serum or plasma protein measurement (mass/volume) 6.9 g/dL 6.4-8.2 Serum or plasma albumin measurement (mass/volume) 3.8 g/dL 3.2-4.5 Magnesium - 11/11/16 10:10 Magnesium 2.0 mg/dL 1.8-2.4 Ammonia - 11/11/16 10:10 Ammonia 43 umol/L 11-32 Serum or plasma thyrotropin measurement by detection limit <=0.05 miu/l (units/ volume) - 11/11/16 10:10 Serum or plasma thyrotropin measurement by detection limit <=0.05 miu/l (units/ volume) 0.89 u[iU]/mL 0.35-4.94 Serum or plasma ethanol measurement (mass/volume) - 11/11/16 10:10 Serum or plasma ethanol measurement (mass/volume) < mg/dL <10 Blood manual differential performed detection - 11/11/16 10:10 Blood monocytes/100 leukocytes 4 % NRG Manual blood segmented neutrophils/100 leukocytes 91 % NRG Blood band neutrophils/100 leukocytes 0 % NRG Manual blood lymphocytes/100 leukocytes 3 % NRG Manual eosinophils/100 leukocytes in nose 2 % NRG Manual blood basophils/100 leukocytes 0 % NRG Blood polychromasia detection by light microscopy SLIGHT NRG Blood poikilocytosis detection by light microscopy SLIGHT NRG Blood hypochromia detection by light microscopy MODERATE NRG Blood stomatocytes detection by light microscopy MARKED NRG Bacterial blood culture - 11/11/16 10:10 Bacterial blood culture NG NRG Bacterial blood culture - 11/11/16 10:30 Bacterial blood culture NG NRG Arterial blood gas measurement - 11/11/16 11:04 Blood pCO2 80 mm[Hg] 35-45 Blood pO2 74 mm[Hg] 79-93 Arterial blood bicarbonate measurement (moles/volume) 37 mmol/L 23-27 Arterial blood base excess by calculation 8.0 mmol/L -2.5 -2.5 Arterial blood oxygen saturation measurement 95 % 94-100 * Inhaled oxygen flow rate 4 NRG Arterial blood pH measurement with patient temperature correction 7.28 7.37-7.43 Arterial blood carbon dioxide, total measurement (moles/volume) 39.1 mmol/L 21.0-31.0 Body site L BRACH NRG Assessment of wrist artery patency prior to arterial puncture YES- POS NRG Setting of ventilation mode NO NRG Measurement of body temperature 96.9 NRG Influenza virus A and B antigen detection - 11/11/16 11:56 FLU RESULT NEGATIVE FOR INFLUENZA A AND B ANTIGENS BY IA NRG Capillary blood glucose measurement by glucometer (mass/volume) - 11/11/16 16: 08 Capillary blood glucose measurement by glucometer (mass/volume) 199 mg/dL 70-110 Capillary blood glucose measurement by glucometer (mass/volume) - 11/11/16 20: 57 Capillary blood glucose measurement by glucometer (mass/volume) 347 mg/dL 70-110 Complete blood count (CBC) with automated white blood cell (WBC) differential - 11/12/16 04:19 Blood leukocytes automated count (number/volume) 12.4 10*3/uL 4.3-11.0 Blood erythrocytes automated count (number/volume) 3.04 10*6/uL 4.35-5.85 Venous blood hemoglobin measurement (mass/volume) 8.2 g/dL 11.5-16.0 Blood hematocrit (volume fraction) 28 % 35-52 Automated erythrocyte mean corpuscular volume 93 [foz_us] 80-99 Automated erythrocyte mean corpuscular hemoglobin (mass per erythrocyte) 27 pg 25-34 Automated erythrocyte mean corpuscular hemoglobin concentration measurement ( mass/volume) 29 g/dL 32-36 Automated erythrocyte distribution width ratio 14.6 % 10.0-14.5 Automated blood platelet count (count/volume) 411 10*3/uL 130-400 Automated blood platelet mean volume measurement 9.7 [foz_us] 7.4-10.4 Automated blood neutrophils/100 leukocytes 95 % 42-75 Automated blood lymphocytes/100 leukocytes 5 % 12-44 Blood monocytes/100 leukocytes 1 % 0-12 Automated blood eosinophils/100 leukocytes 0 % 0-10 Automated blood basophils/100 leukocytes 0 % 0-10 Blood neutrophils automated count (number/volume) 11.8 10*3 1.8-7.8 Blood lymphocytes automated count (number/volume) 0.6 10*3 1.0-4.0 Blood monocytes automated count (number/volume) 0.1 10*3 0.0-1.0 Automated eosinophil count 0.0 10*3/uL 0.0-0.3 Automated blood basophil count (count/volume) 0.0 10*3/uL 0.0-0.1 Blood blood smear finding identification by light microscopy YES [facility] Comprehensive metabolic panel - 11/12/16 04:19 Serum or plasma sodium measurement (moles/volume) 139 mmol/L 135-145 Serum or plasma potassium measurement (moles/volume) 4.3 mmol/L 3.6-5.0 Serum or plasma chloride measurement (moles/volume) 94 mmol/L 98-107 Carbon dioxide 33 mmol/L 21-32 Serum or plasma anion gap determination (moles/volume) 12 mmol/L 5-14 Serum or plasma urea nitrogen measurement (mass/volume) 21 mg/dL 7-18 Serum or plasma creatinine measurement (mass/volume) 0.79 mg/dL 0.60-1.30 Serum or plasma urea nitrogen/creatinine mass ratio 27 NRG Serum or plasma creatinine measurement with calculation of estimated glomerular filtration rate > NRG Serum or plasma glucose measurement (mass/volume) 320 mg/dL 70-105 Serum or plasma calcium measurement (mass/volume) 9.3 mg/dL 8.5-10.1 Serum or plasma total bilirubin measurement (mass/volume) 0.3 mg/dL 0.1-1.0 Serum or plasma alkaline phosphatase measurement (enzymatic activity/volume) 85 U/L 40-136 Serum or plasma aspartate aminotransferase measurement (enzymatic activity/ volume) 11 U/L 5-34 Serum or plasma alanine aminotransferase measurement (enzymatic activity/volume ) 14 U/L 0-55 Serum or plasma protein measurement (mass/volume) 6.6 g/dL 6.4-8.2 Serum or plasma albumin measurement (mass/volume) 3.5 g/dL 3.2-4.5 [id number] - 11/12/16 04:19 Serum or plasma acetaminophen measurement (mass/volume) Negative NRG Blood drugs identification by screening method Negative NRG Serum or plasma barbiturates detection by screening method Negative NRG Tricyclic antidepressants [presence] in blood by screen method Negative NRG Serum or plasma benzodiazepines measurement by screening method (mass/volume) Negative NRG Screening ethanol detection Negative NRG Serum or plasma salicylates measurement by screening method (mass/volume) Negative NRG Capillary blood glucose measurement by glucometer (mass/volume) - 11/12/16 11: 43 Capillary blood glucose measurement by glucometer (mass/volume) 391 mg/dL 70-110 Capillary blood glucose measurement by glucometer (mass/volume) - 11/12/16 16: 04 Capillary blood glucose measurement by glucometer (mass/volume) 325 mg/dL 70-110 Complete urinalysis with reflex to culture - 11/12/16 17:25 Urine color determination YELLOW NRG Urine clarity determination CLEAR NRG Urine pH measurement by test strip 7 5-9 Specific gravity of urine by test strip 1.010 1.016- 1.022 Urine protein assay by test strip, semi-quantitative 1+ NEGATIVE Urine glucose detection by automated test strip 4+ NEGATIVE Erythrocytes detection in urine sediment by light microscopy NEGATIVE NEGATIVE Urine ketones detection by automated test strip NEGATIVE NEGATIVE Urine nitrite detection by test strip NEGATIVE NEGATIVE Urine total bilirubin detection by test strip NEGATIVE NEGATIVE Urine urobilinogen measurement by automated test strip (mass/volume) NORMAL NORMAL Urine leukocyte esterase detection by dipstick NEGATIVE NEGATIVE Automated urine sediment erythrocyte count by microscopy (number/high power field) RARE NRG Automated urine sediment leukocyte count by microscopy (number/high power field ) [HPF] NRG Bacteria detection in urine sediment by light microscopy TRACE NRG Squamous epithelial cells detection in urine sediment by light microscopy 2-5 NRG Crystals detection in urine sediment by light microscopy NONE NRG Casts detection in urine sediment by light microscopy NONE NRG Mucus detection in urine sediment by light microscopy NEGATIVE NRG Complete urinalysis with reflex to culture YES NRG Yeast detection in urine sediment by light microscopy FEW NRG Urine drug screening test - 11/12/16 17:25 Urine phencyclidine detection by screening method NEGATIVE NEGATIVE Urine benzodiazepines detection by screening method NEGATIVE NEGATIVE Urine cocaine detection NEGATIVE NEGATIVE Urine amphetamines detection by screening method NEGATIVE NEGATIVE Urine methamphetamine detection by screening method NEGATIVE NEGATIVE Urine cannabinoids detection by screening method NEGATIVE NEGATIVE Urine opiates detection by screening method NEGATIVE NEGATIVE Urine barbiturates detection NEGATIVE NEGATIVE Screening urine tricyclic antidepressants detection NEGATIVE NEGATIVE Urine methadone detection by screening method NEGATIVE NEGATIVE Urine oxycodone detection NEGATIVE NEGATIVE Urine propoxyphene detection NEGATIVE NEGATIVE Bacterial urine culture - 11/12/16 17:25 Bacterial urine culture [id number] NRG COLONY COUNT <10,000 NRG FTX;REPORTABLE SENSITIVITY REPORTED 11/14 09:18 NRG Bacterial susceptibility panel - 11/12/16 17:25 Gentamicin susceptibility test by minimum inhibitory concentration S NRG Vancomycin susceptibility test by minimum inhibitory concentration 1 NRG Levofloxacin susceptibility test by minimum inhibitory concentration 1 NRG Tetracycline susceptibility test by minimum inhibitory concentration >= NRG Ampicillin susceptibility test by minimum inhibitory concentration < = NRG Nitrofurantoin susceptibility test by minimum inhibitory concentration <= NRG Linezolid susceptibility test by minimum inhibitory concentration 2 NRG Capillary blood glucose measurement by glucometer (mass/volume) - 11/12/16 20: 42 Capillary blood glucose measurement by glucometer (mass/volume) 324 mg/dL 70-110 Complete blood count (CBC) with automated white blood cell (WBC) differential - 11/13/16 04:30 Blood leukocytes automated count (number/volume) 21.7 10*3/uL 4.3-11.0 Blood erythrocytes automated count (number/volume) 2.92 10*6/uL 4.35-5.85 Venous blood hemoglobin measurement (mass/volume) 8.1 g/dL 11.5-16.0 Blood hematocrit (volume fraction) 28 % 35-52 Automated erythrocyte mean corpuscular volume 94 [foz_us] 80-99 Automated erythrocyte mean corpuscular hemoglobin (mass per erythrocyte) 28 pg 25-34 Automated erythrocyte mean corpuscular hemoglobin concentration measurement ( mass/volume) 30 g/dL 32-36 Automated erythrocyte distribution width ratio 14.9 % 10.0-14.5 Automated blood platelet count (count/volume) 426 10*3/uL 130-400 Automated blood platelet mean volume measurement 9.9 [foz_us] 7.4-10.4 Automated blood neutrophils/100 leukocytes 88 % 42-75 Automated blood lymphocytes/100 leukocytes 6 % 12-44 Blood monocytes/100 leukocytes 6 % 0-12 Automated blood eosinophils/100 leukocytes 0 % 0-10 Automated blood basophils/100 leukocytes 0 % 0-10 Blood neutrophils automated count (number/volume) 19.1 10*3 1.8-7.8 Blood lymphocytes automated count (number/volume) 1.2 10*3 1.0-4.0 Blood monocytes automated count (number/volume) 1.3 10*3 0.0-1.0 Automated eosinophil count 0.0 10*3/uL 0.0-0.3 Automated blood basophil count (count/volume) 0.0 10*3/uL 0.0-0.1 Comprehensive metabolic panel - 11/13/16 04:30 Serum or plasma sodium measurement (moles/volume) 141 mmol/L 135-145 Serum or plasma potassium measurement (moles/volume) 4.5 mmol/L 3.6-5.0 Serum or plasma chloride measurement (moles/volume) 98 mmol/L 98-107 Carbon dioxide 33 mmol/L 21-32 Serum or plasma anion gap determination (moles/volume) 10 mmol/L 5-14 Serum or plasma urea nitrogen measurement (mass/volume) 28 mg/dL 7-18 Serum or plasma creatinine measurement (mass/volume) 0.74 mg/dL 0.60-1.30 Serum or plasma urea nitrogen/creatinine mass ratio 38 NRG Serum or plasma creatinine measurement with calculation of estimated glomerular filtration rate > NRG Serum or plasma glucose measurement (mass/volume) 266 mg/dL 70-105 Serum or plasma calcium measurement (mass/volume) 9.7 mg/dL 8.5-10.1 Serum or plasma total bilirubin measurement (mass/volume) 0.2 mg/dL 0.1-1.0 Serum or plasma alkaline phosphatase measurement (enzymatic activity/volume) 84 U/L 40-136 Serum or plasma aspartate aminotransferase measurement (enzymatic activity/ volume) 21 U/L 5-34 Serum or plasma alanine aminotransferase measurement (enzymatic activity/volume ) 14 U/L 0-55 Serum or plasma protein measurement (mass/volume) 6.7 g/dL 6.4-8.2 Serum or plasma albumin measurement (mass/volume) 3.3 g/dL 3.2-4.5 Capillary blood glucose measurement by glucometer (mass/volume) - 11/13/16 05: 22 Capillary blood glucose measurement by glucometer (mass/volume) 265 mg/dL 70-110 Capillary blood glucose measurement by glucometer (mass/volume) - 11/13/16 11: 29 Capillary blood glucose measurement by glucometer (mass/volume) 227 mg/dL 70-110 Complete blood count (CBC) with automated white blood cell (WBC) differential - 03/20/17 11:30 Blood leukocytes automated count (number/volume) 11.7 10*3/uL 4.3-11.0 Blood erythrocytes automated count (number/volume) 4.13 10*6/uL 4.35-5.85 Venous blood hemoglobin measurement (mass/volume) 10.8 g/dL 11.5-16.0 Blood hematocrit (volume fraction) 36 % 35-52 Automated erythrocyte mean corpuscular volume 87 [foz_us] 80-99 Automated erythrocyte mean corpuscular hemoglobin (mass per erythrocyte) 26 pg 25-34 Automated erythrocyte mean corpuscular hemoglobin concentration measurement ( mass/volume) 30 g/dL 32-36 Automated erythrocyte distribution width ratio 15.1 % 10.0-14.5 Automated blood platelet count (count/volume) 331 10*3/uL 130-400 Automated blood platelet mean volume measurement 9.9 [foz_us] 7.4-10.4 Automated blood neutrophils/100 leukocytes 72 % 42-75 Automated blood lymphocytes/100 leukocytes 16 % 12-44 Blood monocytes/100 leukocytes 7 % 0-12 Automated blood eosinophils/100 leukocytes 5 % 0-10 Automated blood basophils/100 leukocytes 0 % 0-10 Blood neutrophils automated count (number/volume) 8.4 10*3 1.8-7.8 Blood lymphocytes automated count (number/volume) 1.9 10*3 1.0-4.0 Blood monocytes automated count (number/volume) 0.8 10*3 0.0-1.0 Automated eosinophil count 0.6 10*3/uL 0.0-0.3 Automated blood basophil count (count/volume) 0.1 10*3/uL 0.0-0.1 Comprehensive metabolic panel - 03/20/17 11:30 Serum or plasma sodium measurement (moles/volume) 139 mmol/L 135-145 Serum or plasma potassium measurement (moles/volume) 4.4 mmol/L 3.6-5.0 Serum or plasma chloride measurement (moles/volume) 101 mmol/L 98-107 Carbon dioxide 22 mmol/L 21-32 Serum or plasma anion gap determination (moles/volume) 16 mmol/L 5-14 Serum or plasma urea nitrogen measurement (mass/volume) 14 mg/dL 7-18 Serum or plasma creatinine measurement (mass/volume) 1.04 mg/dL 0.60-1.30 Serum or plasma urea nitrogen/creatinine mass ratio 13 NRG Serum or plasma creatinine measurement with calculation of estimated glomerular filtration rate 58 NRG Serum or plasma glucose measurement (mass/volume) 380 mg/dL 70-105 Serum or plasma calcium measurement (mass/volume) 8.8 mg/dL 8.5-10.1 Serum or plasma total bilirubin measurement (mass/volume) 0.2 mg/dL 0.1-1.0 Serum or plasma alkaline phosphatase measurement (enzymatic activity/volume) 91 U/L 40-136 Serum or plasma aspartate aminotransferase measurement (enzymatic activity/ volume) 15 U/L 5-34 Serum or plasma alanine aminotransferase measurement (enzymatic activity/volume ) 16 U/L 0-55 Serum or plasma protein measurement (mass/volume) 7.0 g/dL 6.4-8.2 Serum or plasma albumin measurement (mass/volume) 3.9 g/dL 3.2-4.5 Magnesium - 03/20/17 11:30 Magnesium 2.2 mg/dL 1.8-2.4 PT panel in platelet poor plasma by coagulation assay - 03/20/17 11:30 Prothrombin time (PT) in platelet poor plasma by coagulation assay 12.0 s 12.2-14.7 INR in platelet poor plasma or blood by coagulation assay 0.9 0.8-1.4 Activated partial thromboplastin time (aPTT) in platelet poor plasma bycoagulation assay - 03/20/17 11:30 Activated partial thromboplastin time (aPTT) in platelet poor plasma bycoagulation assay 24 s 24-35 Serum or plasma troponin i.cardiac measurement (mass/volume) - 03/20/17 11:30 Serum or plasma troponin i.cardiac measurement (mass/volume) < ng/ mL <0.30 Myoglobin, serum - 03/20/17 11:30 Myoglobin, serum 28.7 ng/mL 10.0-92.0 Fibrin D-dimer FEU measurement in platelet poor plasma (mass/volume) - 11:30 Fibrin D-dimer FEU measurement in platelet poor plasma (mass/volume) 0.30 ug/mL 0.00-0.49 Serum or plasma troponin i.cardiac measurement (mass/volume) - 03/20/17 14:15 Serum or plasma troponin i.cardiac measurement (mass/volume) < ng/ mL <0.30 Complete blood count (CBC) with automated white blood cell (WBC) differential - 04/04/17 14:02 Blood leukocytes automated count (number/volume) 9.8 10*3/uL 4.3-11.0 Blood erythrocytes automated count (number/volume) 4.18 10*6/uL 4.35-5.85 Venous blood hemoglobin measurement (mass/volume) 11.0 g/dL 11.5-16.0 Blood hematocrit (volume fraction) 38 % 35-52 Automated erythrocyte mean corpuscular volume 90 [foz_us] 80-99 Automated erythrocyte mean corpuscular hemoglobin (mass per erythrocyte) 26 pg 25-34 Automated erythrocyte mean corpuscular hemoglobin concentration measurement ( mass/volume) 29 g/dL 32-36 Automated erythrocyte distribution width ratio 15.2 % 10.0-14.5 Automated blood platelet count (count/volume) 313 10*3/uL 130-400 Automated blood platelet mean volume measurement 9.4 [foz_us] 7.4-10.4 Automated blood neutrophils/100 leukocytes 69 % 42-75 Automated blood lymphocytes/100 leukocytes 18 % 12-44 Blood monocytes/100 leukocytes 7 % 0-12 Automated blood eosinophils/100 leukocytes 5 % 0-10 Automated blood basophils/100 leukocytes 1 % 0-10 Blood neutrophils automated count (number/volume) 6.7 10*3 1.8-7.8 Blood lymphocytes automated count (number/volume) 1.8 10*3 1.0-4.0 Blood monocytes automated count (number/volume) 0.7 10*3 0.0-1.0 Automated eosinophil count 0.5 10*3/uL 0.0-0.3 Automated blood basophil count (count/volume) 0.1 10*3/uL 0.0-0.1 Comprehensive metabolic panel - 04/04/17 14:02 Serum or plasma sodium measurement (moles/volume) 140 mmol/L 135-145 Serum or plasma potassium measurement (moles/volume) 4.4 mmol/L 3.6-5.0 Serum or plasma chloride measurement (moles/volume) 100 mmol/L 98-107 Carbon dioxide 30 mmol/L 21-32 Serum or plasma anion gap determination (moles/volume) 10 mmol/L 5-14 Serum or plasma urea nitrogen measurement (mass/volume) 11 mg/dL 7-18 Serum or plasma creatinine measurement (mass/volume) 0.81 mg/dL 0.60-1.30 Serum or plasma urea nitrogen/creatinine mass ratio 14 NRG Serum or plasma creatinine measurement with calculation of estimated glomerular filtration rate > NRG Serum or plasma glucose measurement (mass/volume) 390 mg/dL 70-105 Serum or plasma calcium measurement (mass/volume) 9.4 mg/dL 8.5-10.1 Serum or plasma total bilirubin measurement (mass/volume) 0.2 mg/dL 0.1-1.0 Serum or plasma alkaline phosphatase measurement (enzymatic activity/volume) 98 U/L 40-136 Serum or plasma aspartate aminotransferase measurement (enzymatic activity/ volume) 12 U/L 5-34 Serum or plasma alanine aminotransferase measurement (enzymatic activity/volume ) 15 U/L 0-55 Serum or plasma protein measurement (mass/volume) 7.1 g/dL 6.4-8.2 Serum or plasma albumin measurement (mass/volume) 4.0 g/dL 3.2-4.5 Serum or plasma troponin i.cardiac measurement (mass/volume) - 04/04/17 14:02 Serum or plasma troponin i.cardiac measurement (mass/volume) < ng/ mL <0.30 Arterial blood gas measurement - 04/04/17 14:10 Blood pCO2 71 mm[Hg] 35-45 Blood pO2 73 mm[Hg] 79-93 Arterial blood bicarbonate measurement (moles/volume) 34 mmol/L 23-27 Arterial blood base excess by calculation 7.2 mmol/L -2.5 -2.5 Arterial blood oxygen saturation measurement 94 % 94-100 * Inhaled oxygen flow rate 5 NRG Arterial blood pH measurement with patient temperature correction 7.29 7.37-7.43 Arterial blood carbon dioxide, total measurement (moles/volume) 36.1 mmol/L 21.0-31.0 Body site R RAD NRG Assessment of wrist artery patency prior to arterial puncture YES- POS NRG Setting of ventilation mode NO NRG Measurement of body temperature 96.6 NRG Capillary blood glucose measurement by glucometer (mass/volume) - 04/04/17 16: 36 Capillary blood glucose measurement by glucometer (mass/volume) 241 mg/dL 70-110 Capillary blood glucose measurement by glucometer (mass/volume) - 04/04/17 22: 08 Capillary blood glucose measurement by glucometer (mass/volume) 378 mg/dL 70-110 Capillary blood glucose measurement by glucometer (mass/volume) - 04/05/17 05: 09 Capillary blood glucose measurement by glucometer (mass/volume) 279 mg/dL 70-110 Complete blood count (CBC) with automated white blood cell (WBC) differential - 04/05/17 06:20 Blood leukocytes automated count (number/volume) 15.2 10*3/uL 4.3-11.0 Blood erythrocytes automated count (number/volume) 4.04 10*6/uL 4.35-5.85 Venous blood hemoglobin measurement (mass/volume) 10.6 g/dL 11.5-16.0 Blood hematocrit (volume fraction) 36 % 35-52 Automated erythrocyte mean corpuscular volume 88 [foz_us] 80-99 Automated erythrocyte mean corpuscular hemoglobin (mass per erythrocyte) 26 pg 25-34 Automated erythrocyte mean corpuscular hemoglobin concentration measurement ( mass/volume) 30 g/dL 32-36 Automated erythrocyte distribution width ratio 14.9 % 10.0-14.5 Automated blood platelet count (count/volume) 363 10*3/uL 130-400 Automated blood platelet mean volume measurement 9.9 [foz_us] 7.4-10.4 Automated blood neutrophils/100 leukocytes 92 % 42-75 Automated blood lymphocytes/100 leukocytes 6 % 12-44 Blood monocytes/100 leukocytes 2 % 0-12 Automated blood eosinophils/100 leukocytes 0 % 0-10 Automated blood basophils/100 leukocytes 0 % 0-10 Blood neutrophils automated count (number/volume) 14.0 10*3 1.8-7.8 Blood lymphocytes automated count (number/volume) 0.9 10*3 1.0-4.0 Blood monocytes automated count (number/volume) 0.3 10*3 0.0-1.0 Automated eosinophil count 0.0 10*3/uL 0.0-0.3 Automated blood basophil count (count/volume) 0.0 10*3/uL 0.0-0.1 Blood manual differential performed detection - 04/05/17 06:20 Blood monocytes/100 leukocytes 2 % NRG Manual blood segmented neutrophils/100 leukocytes 93 % NRG Blood band neutrophils/100 leukocytes 0 % NRG Manual blood lymphocytes/100 leukocytes 5 % NRG Manual eosinophils/100 leukocytes in nose 0 % NRG Manual blood basophils/100 leukocytes 0 % NRG Blood erythrocyte morphology finding identification [facility] Comprehensive metabolic panel - 04/05/17 06:20 Serum or plasma sodium measurement (moles/volume) 138 mmol/L 135-145 Serum or plasma potassium measurement (moles/volume) 4.7 mmol/L 3.6-5.0 Serum or plasma chloride measurement (moles/volume) 99 mmol/L 98-107 Carbon dioxide 28 mmol/L 21-32 Serum or plasma anion gap determination (moles/volume) 11 mmol/L 5-14 Serum or plasma urea nitrogen measurement (mass/volume) 16 mg/dL 7-18 Serum or plasma creatinine measurement (mass/volume) 0.77 mg/dL 0.60-1.30 Serum or plasma urea nitrogen/creatinine mass ratio 21 NRG Serum or plasma creatinine measurement with calculation of estimated glomerular filtration rate > NRG Serum or plasma glucose measurement (mass/volume) 277 mg/dL 70-105 Serum or plasma calcium measurement (mass/volume) 9.3 mg/dL 8.5-10.1 Serum or plasma total bilirubin measurement (mass/volume) 0.2 mg/dL 0.1-1.0 Serum or plasma alkaline phosphatase measurement (enzymatic activity/volume) 90 U/L 40-136 Serum or plasma aspartate aminotransferase measurement (enzymatic activity/ volume) 11 U/L 5-34 Serum or plasma alanine aminotransferase measurement (enzymatic activity/volume ) 15 U/L 0-55 Serum or plasma protein measurement (mass/volume) 6.8 g/dL 6.4-8.2 Serum or plasma albumin measurement (mass/volume) 3.8 g/dL 3.2-4.5 Capillary blood glucose measurement by glucometer (mass/volume) - 04/05/17 11: 09 Capillary blood glucose measurement by glucometer (mass/volume) 318 mg/dL 70-110 Capillary blood glucose measurement by glucometer (mass/volume) - 04/05/17 16: 02 Capillary blood glucose measurement by glucometer (mass/volume) 386 mg/dL 70-110 Capillary blood glucose measurement by glucometer (mass/volume) - 04/05/17 20: 36 Capillary blood glucose measurement by glucometer (mass/volume) 434 mg/dL 70-110 Capillary blood glucose measurement by glucometer (mass/volume) - 04/06/17 05: 31 Capillary blood glucose measurement by glucometer (mass/volume) 280 mg/dL 70-110 Complete blood count (CBC) with automated white blood cell (WBC) differential - 04/06/17 06:02 Blood leukocytes automated count (number/volume) 14.8 10*3/uL 4.3-11.0 Blood erythrocytes automated count (number/volume) 3.85 10*6/uL 4.35-5.85 Venous blood hemoglobin measurement (mass/volume) 10.0 g/dL 11.5-16.0 Blood hematocrit (volume fraction) 35 % 35-52 Automated erythrocyte mean corpuscular volume 90 [foz_us] 80-99 Automated erythrocyte mean corpuscular hemoglobin (mass per erythrocyte) 26 pg 25-34 Automated erythrocyte mean corpuscular hemoglobin concentration measurement ( mass/volume) 29 g/dL 32-36 Automated erythrocyte distribution width ratio 15.0 % 10.0-14.5 Automated blood platelet count (count/volume) 313 10*3/uL 130-400 Automated blood platelet mean volume measurement 10.1 [foz_us] 7.4-10.4 Automated blood neutrophils/100 leukocytes 79 % 42-75 Automated blood lymphocytes/100 leukocytes 14 % 12-44 Blood monocytes/100 leukocytes 8 % 0-12 Automated blood eosinophils/100 leukocytes 0 % 0-10 Automated blood basophils/100 leukocytes 0 % 0-10 Blood neutrophils automated count (number/volume) 11.6 10*3 1.8-7.8 Blood lymphocytes automated count (number/volume) 2.0 10*3 1.0-4.0 Blood monocytes automated count (number/volume) 1.1 10*3 0.0-1.0 Automated eosinophil count 0.0 10*3/uL 0.0-0.3 Automated blood basophil count (count/volume) 0.0 10*3/uL 0.0-0.1 Comprehensive metabolic panel - 04/06/17 06:02 Serum or plasma sodium measurement (moles/volume) 140 mmol/L 135-145 Serum or plasma potassium measurement (moles/volume) 4.6 mmol/L 3.6-5.0 Serum or plasma chloride measurement (moles/volume) 103 mmol/L 98-107 Carbon dioxide 28 mmol/L 21-32 Serum or plasma anion gap determination (moles/volume) 9 mmol/L 5-14 Serum or plasma urea nitrogen measurement (mass/volume) 25 mg/dL 7-18 Serum or plasma creatinine measurement (mass/volume) 0.74 mg/dL 0.60-1.30 Serum or plasma urea nitrogen/creatinine mass ratio 34 NRG Serum or plasma creatinine measurement with calculation of estimated glomerular filtration rate > NRG Serum or plasma glucose measurement (mass/volume) 293 mg/dL 70-105 Serum or plasma calcium measurement (mass/volume) 8.9 mg/dL 8.5-10.1 Serum or plasma total bilirubin measurement (mass/volume) 0.1 mg/dL 0.1-1.0 Serum or plasma alkaline phosphatase measurement (enzymatic activity/volume) 79 U/L 40-136 Serum or plasma aspartate aminotransferase measurement (enzymatic activity/ volume) 8 U/L 5-34 Serum or plasma alanine aminotransferase measurement (enzymatic activity/volume ) 13 U/L 0-55 Serum or plasma protein measurement (mass/volume) 6.2 g/dL 6.4-8.2 Serum or plasma albumin measurement (mass/volume) 3.6 g/dL 3.2-4.5 Capillary blood glucose measurement by glucometer (mass/volume) - 04/06/17 11: 10 Capillary blood glucose measurement by glucometer (mass/volume) 330 mg/dL 70-110 Capillary blood glucose measurement by glucometer (mass/volume) - 04/06/17 15: 57 Capillary blood glucose measurement by glucometer (mass/volume) 368 mg/dL 70-110 Capillary blood glucose measurement by glucometer (mass/volume) - 04/06/17 21: 32 Capillary blood glucose measurement by glucometer (mass/volume) 351 mg/dL 70-110 Capillary blood glucose measurement by glucometer (mass/volume) - 04/07/17 05: 15 Capillary blood glucose measurement by glucometer (mass/volume) 222 mg/dL 70-110 Complete blood count (CBC) with automated white blood cell (WBC) differential - 04/07/17 05:22 Blood leukocytes automated count (number/volume) 11.4 10*3/uL 4.3-11.0 Blood erythrocytes automated count (number/volume) 3.94 10*6/uL 4.35-5.85 Venous blood hemoglobin measurement (mass/volume) 10.2 g/dL 11.5-16.0 Blood hematocrit (volume fraction) 36 % 35-52 Automated erythrocyte mean corpuscular volume 91 [foz_us] 80-99 Automated erythrocyte mean corpuscular hemoglobin (mass per erythrocyte) 26 pg 25-34 Automated erythrocyte mean corpuscular hemoglobin concentration measurement ( mass/volume) 29 g/dL 32-36 Automated erythrocyte distribution width ratio 15.5 % 10.0-14.5 Automated blood platelet count (count/volume) 307 10*3/uL 130-400 Automated blood platelet mean volume measurement 10.1 [foz_us] 7.4-10.4 Automated blood neutrophils/100 leukocytes 63 % 42-75 Automated blood lymphocytes/100 leukocytes 26 % 12-44 Blood monocytes/100 leukocytes 8 % 0-12 Automated blood eosinophils/100 leukocytes 3 % 0-10 Automated blood basophils/100 leukocytes 0 % 0-10 Blood neutrophils automated count (number/volume) 7.2 10*3 1.8-7.8 Blood lymphocytes automated count (number/volume) 3.0 10*3 1.0-4.0 Blood monocytes automated count (number/volume) 0.9 10*3 0.0-1.0 Automated eosinophil count 0.3 10*3/uL 0.0-0.3 Automated blood basophil count (count/volume) 0.0 10*3/uL 0.0-0.1 Comprehensive metabolic panel - 04/07/17 05:22 Serum or plasma sodium measurement (moles/volume) 140 mmol/L 135-145 Serum or plasma potassium measurement (moles/volume) 4.2 mmol/L 3.6-5.0 Serum or plasma chloride measurement (moles/volume) 101 mmol/L 98-107 Carbon dioxide 28 mmol/L 21-32 Serum or plasma anion gap determination (moles/volume) 11 mmol/L 5-14 Serum or plasma urea nitrogen measurement (mass/volume) 23 mg/dL 7-18 Serum or plasma creatinine measurement (mass/volume) 0.75 mg/dL 0.60-1.30 Serum or plasma urea nitrogen/creatinine mass ratio 31 NRG Serum or plasma creatinine measurement with calculation of estimated glomerular filtration rate > NRG Serum or plasma glucose measurement (mass/volume) 230 mg/dL 70-105 Serum or plasma calcium measurement (mass/volume) 8.9 mg/dL 8.5-10.1 Serum or plasma total bilirubin measurement (mass/volume) 0.1 mg/dL 0.1-1.0 Serum or plasma alkaline phosphatase measurement (enzymatic activity/volume) 79 U/L 40-136 Serum or plasma aspartate aminotransferase measurement (enzymatic activity/ volume) 7 U/L 5-34 Serum or plasma alanine aminotransferase measurement (enzymatic activity/volume ) 14 U/L 0-55 Serum or plasma protein measurement (mass/volume) 6.3 g/dL 6.4-8.2 Serum or plasma albumin measurement (mass/volume) 3.7 g/dL 3.2-4.5 Capillary blood glucose measurement by glucometer (mass/volume) - 04/07/17 10: 59 Capillary blood glucose measurement by glucometer (mass/volume) 275 mg/dL 70-110 Complete blood count (CBC) with automated white blood cell (WBC) differential - 06/10/17 13:35 Blood leukocytes automated count (number/volume) 18.8 10*3/uL 4.3-11.0 Blood erythrocytes automated count (number/volume) 4.20 10*6/uL 4.35-5.85 Venous blood hemoglobin measurement (mass/volume) 11.1 g/dL 11.5-16.0 Blood hematocrit (volume fraction) 38 % 35-52 Automated erythrocyte mean corpuscular volume 91 [foz_us] 80-99 Automated erythrocyte mean corpuscular hemoglobin (mass per erythrocyte) 26 pg 25-34 Automated erythrocyte mean corpuscular hemoglobin concentration measurement ( mass/volume) 29 g/dL 32-36 Automated erythrocyte distribution width ratio 15.5 % 10.0-14.5 Automated blood platelet count (count/volume) 355 10*3/uL 130-400 Automated blood platelet mean volume measurement 10.1 [foz_us] 7.4-10.4 Automated blood neutrophils/100 leukocytes 88 % 42-75 Automated blood lymphocytes/100 leukocytes 6 % 12-44 Blood monocytes/100 leukocytes 5 % 0-12 Automated blood eosinophils/100 leukocytes 0 % 0-10 Automated blood basophils/100 leukocytes 0 % 0-10 Blood neutrophils automated count (number/volume) 16.4 10*3 1.8-7.8 Blood lymphocytes automated count (number/volume) 1.2 10*3 1.0-4.0 Blood monocytes automated count (number/volume) 1.0 10*3 0.0-1.0 Automated eosinophil count 0.1 10*3/uL 0.0-0.3 Automated blood basophil count (count/volume) 0.1 10*3/uL 0.0-0.1 Blood manual differential performed detection - 06/10/17 13:35 Blood monocytes/100 leukocytes 7 % NRG Manual blood segmented neutrophils/100 leukocytes 83 % NRG Manual blood lymphocytes/100 leukocytes 10 % NRG Blood polychromasia detection by light microscopy MODERATE NRG Blood hypochromia detection by light microscopy MODERATE NRG Blood stomatocytes detection by light microscopy MODERATE NRG Blood basophilic stippling detection by light microscopy MODERATE NRG Serum or plasma lithium measurement (moles/volume) - 06/10/17 13:35 BNP level 120.4 pg/mL <100.0 Comprehensive metabolic panel - 06/10/17 15:12 Serum or plasma sodium measurement (moles/volume) 139 mmol/L 135-145 Serum or plasma potassium measurement (moles/volume) 3.7 mmol/L 3.6-5.0 Serum or plasma chloride measurement (moles/volume) 92 mmol/L 98-107 Carbon dioxide 34 mmol/L 21-32 Serum or plasma anion gap determination (moles/volume) 13 mmol/L 5-14 Serum or plasma urea nitrogen measurement (mass/volume) 17 mg/dL 7-18 Serum or plasma creatinine measurement (mass/volume) 0.81 mg/dL 0.60-1.30 Serum or plasma urea nitrogen/creatinine mass ratio 21 NRG Serum or plasma creatinine measurement with calculation of estimated glomerular filtration rate > NRG Serum or plasma glucose measurement (mass/volume) 183 mg/dL 70-105 Serum or plasma calcium measurement (mass/volume) 9.2 mg/dL 8.5-10.1 Serum or plasma total bilirubin measurement (mass/volume) 0.2 mg/dL 0.1-1.0 Serum or plasma alkaline phosphatase measurement (enzymatic activity/volume) 99 U/L 40-136 Serum or plasma aspartate aminotransferase measurement (enzymatic activity/ volume) 22 U/L 5-34 Serum or plasma alanine aminotransferase measurement (enzymatic activity/volume ) 22 U/L 0-55 Serum or plasma protein measurement (mass/volume) 7.9 g/dL 6.4-8.2 Serum or plasma albumin measurement (mass/volume) 4.5 g/dL 3.2-4.5 Encounters ACCT No. Visit Date/Time Discharge Status Pt. Type Provider Facility Loc./Unit Complaint [id number] 12/21/2014 10:47:00 12/21/2014 23:59:59 CLS Outpatient SHANNA LOCKETT DO [id number] 12/14/2014 14:00:00 12/14/2014 23:59:59 CLS Outpatient BARRY CASTELLANO APRN [id number] 11/22/2014 10:23:00 11/22/2014 23:59:59 CLS Outpatient SHANNA LOCKETT DO [id number] 10/31/2014 14:32:00 10/31/2014 23:59:59 CLS Outpatient MADL DION DEL TORO [id number] 10/17/2014 14:03:00 10/17/2014 23:59:59 CLS Outpatient MADL DION DEL TORO [id number] 09/19/2014 13:49:00 09/19/2014 23:59:59 CLS Outpatient MADL BRANCH CONTROLLERLAUREA L [id number] 09/05/2014 12:53:00 09/05/2014 23:59:59 CLS Outpatient MADL BRANCH CONTROLLER, DION L [id number] 08/20/2014 13:19:00 08/20/2014 23:59:59 CLS Outpatient MADL BRANCH CONTROLLER, DION L [id number] 08/20/2014 13:19:00 08/20/2014 23:59:59 CLS Outpatient MADL BRANCH CONTROLLER, DION L [id number] 08/10/2014 10:05:00 08/10/2014 23:59:59 CLS Outpatient MADL BRANCH CONTROLLER, DION L [id number] 08/10/2014 10:05:00 08/10/2014 23:59:59 CLS Outpatient MADL BRANCH CONTROLLER, DION L [id number] 08/02/2014 16:11:00 08/02/2014 23:59:59 CLS Outpatient MADL BRANCH CONTROLLER, DION L [id number] 07/30/2014 06:01:00 07/30/2014 23:59:59 CLS Outpatient LOCKETT DOSHANNA [id number] 07/23/2014 14:28:00 07/23/2014 23:59:59 CLS Outpatient MADL BRANCH CONTROLLER, DION L [id number] 07/17/2014 09:59:00 07/17/2014 23:59:59 CLS Outpatient MADL BRANCH CONTROLLER, DION L [id number] 06/04/2014 10:20:00 06/04/2014 23:59:59 CLS Outpatient MADL BRANCH CONTROLLER, DION L [id number] 05/22/2014 17:06:00 05/22/2014 23:59:59 CLS Outpatient LOCKETT DOSHANNA [id number] 05/02/2014 13:31:00 05/02/2014 23:59:59 CLS Outpatient LOCKETT DOSHANNA [id number] 04/09/2014 15:32:00 04/09/2014 23:59:59 CLS Outpatient LAURA BENNETT MD [id number] 04/09/2014 13:20:00 04/09/2014 23:59:59 CLS Outpatient MADL BRANCH CONTROLLER, DION L [id number] 04/09/2014 13:20:00 04/09/2014 23:59:59 CLS Outpatient DION SOTO APRN [id number] 12/28/2013 13:56:00 12/28/2013 23:59:59 CLS Outpatient ANNEL JJ APRN [id number] 12/26/2013 10:04:00 12/26/2013 23:59:59 CLS Outpatient MARTÍNEZ MARY APRN N [id number] 11/16/2013 09:46:00 11/16/2013 23:59:59 CLS Outpatient MARTÍNEZ MARY APRN N [id number] 11/07/2013 08:22:00 11/07/2013 23:59:59 CLS Outpatient SHANNA LOCKETT DO [id number] 10/24/2013 12:14:00 10/24/2013 23:59:59 CLS Outpatient ELIZABETH ROBIN MD [id number] 10/19/2013 16:17:00 10/19/2013 23:59:59 CLS Outpatient LARUA BENNETT MD [id number] 10/05/2013 14:54:00 10/05/2013 23:59:59 CLS Outpatient LAURA BENNETT MD [id number] 09/07/2013 09:59:00 09/07/2013 23:59:59 CLS Outpatient CARLINE MARIO APRN [id number] 09/06/2013 13:04:00 09/06/2013 23:59:59 CLS Outpatient CARLINE MARIO APRN [id number] 07/18/2013 13:30:00 07/18/2013 23:59:59 CLS Outpatient SHANNA LOCKETT DO [id number] 06/21/2013 15:20:00 06/21/2013 23:59:59 CLS Outpatient BINDU PALM MD [id number] 06/21/2013 15:20:00 06/21/2013 23:59:59 CLS Outpatient BINDU PALM MD [id number] 06/16/2013 14:03:00 06/16/2013 23:59:59 CLS Outpatient BINDU PALM MD [id number] 06/16/2013 14:03:00 06/16/2013 23:59:59 CLS Outpatient BINDU PALM MD [id number] 12/13/2012 12:54:00 12/13/2012 23:59:59 CLS Outpatient BINDU PALM MD [id number] 12/05/2012 09:40:00 12/05/2012 23:59:59 CLS Outpatient [id number] 11/28/2012 10:23:00 11/28/2012 23:59:59 CLS Outpatient [id number] 11/07/2012 15:40:00 11/07/2012 23:59:59 CLS Outpatient LAURA BENNETT MD [id number] 10/26/2012 15:11:00 10/26/2012 23:59:59 CLS Outpatient SHANNA LOCKETT DO [place] [id number] 10/26/2012 15:11:00 10/26/2012 23:59:59 CLS Outpatient LOCKETT SHANNA CARRANZA [id number] 09/24/2012 11:53:00 09/24/2012 23:59:59 CLS Outpatient ANNEL JJ APRN [id number] 08/25/2012 09:28:00 08/25/2012 23:59:59 CLS Outpatient DON POOL MD [id number] 08/19/2012 16:47:00 08/19/2012 23:59:59 CLS Outpatient [id number] 06/17/2012 11:19:00 06/17/2012 23:59:59 CLS Outpatient LAURA BENNETT MD [id number] 06/02/2013 13:27:00 Document Registration [id number] 02/24/2013 16:15:00 Document Registration [id number] 02/24/2013 16:15:00 Document Registration [id number] 02/14/2013 15:36:00 Document Registration [id number] 02/14/2013 15:36:00 Document Registration [id number] 01/17/2013 08:31:00 Document Registration [id number] 01/06/2013 10:13:00 Document Registration [id number] 10/07/2017 12:54:00 10/07/2017 23:59:59 CLS Outpatient TEMITOPE GARCIA DO [facility] PULM COPD [id number] 08/31/2017 13:00:00 09/20/2017 00:01:00 DIS Outpatient TEMITOPE GARCIA DO [facility] PULM COPD [id number] 07/02/2017 11:29:00 07/02/2017 23:59:59 CLS Outpatient FREEDOM LORENZANA MD [facility] RAD VENTRAL HERNIA K43.9 [id number] 06/08/2017 13:00:00 06/19/2017 00:01:00 DIS Outpatient TEMITOPE GARCIA DO [facility] PULM COPD [id number] 06/10/2017 13:20:00 06/10/2017 16:24:00 DIS Emergency WILLY NEAL [facility] ER SOA COUGHING UP BLOOD [id number] 06/08/2017 15:36:00 06/08/2017 23:59:59 CLS Outpatient DAR VALDIVIA DO [facility] RAD Z12.31 R10.2 [id number] 06/07/2017 11:03:00 06/07/2017 23:59:59 CLS Preadmit DAR VALDIVIA DO [facility] RAD CHRONIC FEMALE PELVIC PAIN [id number] 04/22/2017 13:00:00 05/09/2017 00:01:00 DIS Outpatient TEMITOPE GARCIA DO [facility] PULM COPD [id number] 04/13/2017 07:51:00 04/13/2017 23:59:59 CLS Outpatient DILLAN MOREIRA, Rocky MARTINEZ [facility] CARD CHEST PAIN [id number] 04/04/2017 15:05:00 04/07/2017 11:10:00 DIS Inpatient TEMITOPE GARCIA DO [facility] 4TH COPD EXACERBATION [id number] 03/20/2017 11:26:00 03/20/2017 15:05:00 DIS Emergency MING MOREIRA, MARIAH Prasad [facility] ER CP AND BACK PAIN [id number] 11/20/2016 13:19:00 11/20/2016 14:44:00 DIS Emergency WILL MOREIRA, ADA Guerra [facility] ER POSS BITE ON RIGHT SIDE [id number] 11/11/2016 11:43:00 11/13/2016 12:15:00 DIS Inpatient TEMITOPE GARCIA DO [facility] 4TH ACUTE ON CHRONIC RESPIRATORY FAILURE COPD PNEUMONI [id number] 11/09/2016 09:19:00 11/09/2016 10:50:00 DIS Emergency CHRISTELLE UNDERWOOD DO [facility] ER RIGHT SIDE/LEFT LEG PAIN NAUSEA [id number] 08/25/2016 15:00:00 08/25/2016 23:59:59 CLS Preadmit MARGO CAMPOVERDE APRN [facility] PULM COPD,HYPOXIA [id number] 08/11/2016 13:00:00 08/24/2016 00:01:00 DIS Outpatient MARGO CAMPOVERDE APRN [facility] PULM COPD,HYPOXIA [id number] 08/17/2016 14:08:00 08/17/2016 16:38:00 DIS Emergency JOHN KILPATRICK APRN [facility] ER CHEST PAIN/SOA [id number] 06/17/2016 15:06:00 06/17/2016 15:28:00 DIS Emergency CHRISTELLE UNDERWOOD DO [facility] ER L SIDE EAR,FACIAL,AND TONGUE PAIN [id number] 05/14/2016 10:48:00 05/14/2016 11:06:00 DIS Emergency JOHN KILPATRICK APRN [facility] ER L EAR PAIN SWELLING [id number] 05/13/2016 12:47:00 05/13/2016 23:59:59 CLS Outpatient DEVORAH PETERSON MD [facility] RAD COPD ACUTE EXACERBATION [id number] 05/04/2016 16:45:00 05/04/2016 19:07:00 DIS Emergency JOHN KILPATRICK APRN [facility] ER CP,BACK PAIN [id number] 04/23/2016 13:00:00 04/26/2016 00:01:00 DIS Outpatient MARGO CAMPOVERDE APRN [facility] PULM COPD,HYPOXIA [id number] 03/29/2016 15:24:00 03/29/2016 17:45:00 DIS Emergency CHRISTELLE UNDERWOOD DO [facility] ER SOB [id number] 12/18/2015 09:50:00 12/20/2015 13:49:00 DIS Inpatient TEMITOPE GARCIA DO [facility] 4TH COPD UTI [id number] 12/16/2015 14:54:00 12/16/2015 17:10:00 DIS Outpatient SERENITY BARNES MD [facility] ER BACK/CHEST PAIN SOA [id number] 11/29/2015 12:49:00 11/29/2015 15:35:00 DIS Emergency ADA SOLIS MD [facility] ER CHEST PAIN/SOA [id number] 11/11/2015 17:41:00 11/11/2015 19:49:00 DIS Emergency JOHN KILPATRICK APRN [facility] ER SOA,ELEVATED BLOOD SUGAR [id number] 11/04/2015 12:27:00 11/06/2015 13:05:00 DIS Inpatient TEMITOPE GARCIA DO [facility] [facility] COPD POSSIBLE PNEUMONITIS [id number] 10/25/2015 20:26:00 10/30/2015 12:20:00 DIS Inpatient TEMITOPE GARCIA DO [facility] 4TH ATYPICAL PNEUMONIA, EXACERBATION COPD,H/O DIABETES [id number] 10/02/2015 15:30:00 10/07/2015 12:20:00 DIS Inpatient TEMITOPE GARCIA DO Via [facility] 4TH ACUTE ON CHRONIC RESPIRATORY FAILURE [id number] 09/17/2015 19:36:00 09/17/2015 21:19:00 DIS Emergency JOHN KILPATRICK BRANCH CONTROLLER [facility] ER DIFFICULTY BREATHING [id number] 09/04/2015 16:49:00 09/04/2015 18:40:00 DIS Emergency SERENITY BARNES MD [facility] ER CHEST PAIN, LOW OXYGEN [id number] 08/27/2015 06:50:00 08/27/2015 14:05:00 DIS Outpatient RENETTA MOREIRA FACC, LINDY COLLIER CCDS [facility] CATH OBESITY, CHEST DISCOMFORT, HYPOXIA [id number] 07/14/2015 21:22:00 07/16/2015 11:20:00 DIS Inpatient LAURA BENNETT MD [facility] 4TH AECOPD [id number] 07/07/2015 11:50:00 07/07/2015 14:40:00 DIS Emergency SHONNAJOHN APRN [facility] ER SOA [id number] 06/17/2015 09:01:00 06/17/2015 23:59:59 CLS Preadmit LETITIA OLIVA MD [facility] WOUNDCARE [id number] 05/09/2015 12:22:00 05/09/2015 23:59:59 CLS Outpatient VALDIVIA DAR CARRANZA [facility] RAD AMENORRHEA [id number] 07/08/2014 13:38:00 07/09/2014 12:30:00 DIS Inpatient SHANNA LOCKETT DO [facility] CSD COPD ACUTE EXACERBATION DIARRHEA [id number] 04/29/2014 17:44:00 04/29/2014 21:42:00 DIS Emergency CARL PARKER [facility] ER SOA [id number] 03/27/2014 18:05:00 03/30/2014 13:12:00 DIS Inpatient SHANNA LOCKETT DO [facility] 4TH COPD EXACERBATION, HYPOXIA, ANXIETY [id number] 03/21/2014 00:27:00 03/22/2014 13:45:00 DIS Inpatient BINDU PALM MD [facility] 4TH SOA;CP [id number] 02/13/2014 11:33:00 02/13/2014 13:28:00 DIS Emergency CHRISTELLE UNDERWOOD DO [facility] ER LOW O2 SATS [id number] 01/17/2014 14:56:00 01/17/2014 23:59:59 CLS Outpatient LUIZA THOMPSON DO [facility] RT COPD,HYPOXIA [id number] 11/14/2013 09:41:00 11/14/2013 23:59:59 CLS Outpatient LUIZA THOMPSON DO [facility] RAD COPD [id number] 10/24/2013 00:35:00 10/28/2013 14:55:00 DIS Inpatient LAURA BENNETT MD [facility] 4TH PNEUMONIA W/HYPOXIA;COPD EXACERBATION [id number] 10/05/2013 15:57:00 10/09/2013 17:10:00 DIS Inpatient LAURA BENNETT MD [facility] 4TH COPD [id number] 10/02/2013 12:12:00 10/02/2013 13:52:00 DIS Outpatient KJ MARIA ANTONIALuisa Mcmanus [facility] ER SOA [id number] 09/27/2013 14:12:00 09/29/2013 16:50:00 DIS Inpatient ELIZABETH ROBIN MD [facility] 4TH COPD EXACERBATION [id number] 09/20/2013 16:55:00 09/20/2013 19:41:00 DIS Emergency JOHN KILPATRICK [employer]ER [facility] ER SOA [id number] 09/16/2013 17:04:00 09/16/2013 18:50:00 DIS Emergency JOHN KILPATRICK BRANCH [employer]ER [facility] ER SOA [id number] 06/28/2013 13:12:00 06/28/2013 23:59:59 CLS Outpatient DESTINY MOREIRA, NELSON A [facility] RAD COUGH,HYPOXEMIA,GOLDBERG [id number] 06/28/2013 11:30:00 06/28/2013 23:59:59 CLS Outpatient DESTINY MOREIRA, NELSON A [facility] RT CHRONIC AIRWAY OBSTRUCTION ,ACUTE BRONCHOSPASM [id number] 05/17/2013 00:25:00 05/17/2013 13:30:00 DIS Inpatient SHANNA LOCKETT DO [facility] 4TH COPD ACUTE EXACERBATION [id number] 05/15/2013 13:50:00 05/15/2013 16:17:00 DIS Outpatient JOHN KILPATRICK BRANCH CONTROLLER [facility] ER CHEST PAIN/SOA [id number] 03/23/2013 16:44:00 03/23/2013 19:24:00 DIS Emergency NHI CHAVEZ MD [facility] ER CP [id number] 03/20/2013 13:59:00 03/20/2013 15:08:00 DIS Emergency KELLIE QUINTERO MD [facility] ER SOA [id number] 11/19/2017 16:42:00 ACT Emergency ADA SOLIS MD [facility] ER CHEST PAIN [id number] 11/14/2014 16:43:00 Document Registration [id number] 10/30/2014 12:32:00 Document Registration [id number] 10/30/2014 12:31:00 Document Registration [id number] 10/30/2014 12:31:00 Document Registration [id number] 10/30/2014 12:31:00 Document Registration [id number] 10/30/2014 12:31:00 Document Registration [id number] 10/30/2014 12:31:00 Document Registration [id number] 10/30/2014 12:31:00 Document Registration [id number] 10/30/2014 12:31:00 Document Registration [id number] 10/30/2014 12:31:00 Document Registration [id number] 10/30/2014 12:31:00 Document Registration [id number] 08/08/2014 16:30:00 Document Registration [id number] 08/08/2014 16:30:00 Document Registration [id number] 08/08/2014 16:29:00 Document Registration [id number] 08/08/2014 16:29:00 Document Registration [id number] 08/08/2014 16:29:00 Document Registration [id number] 08/08/2014 16:29:00 Document Registration [id number] 08/08/2014 16:29:00 Document Registration [id number] 08/08/2014 16:29:00 Document Registration [id number] 08/08/2014 16:29:00 Document Registration [id number] 12/12/2012 14:09:00 Document Registration [id number] 11/04/2012 10:41:00 Document Registration [id number] 08/14/2012 01:40:00 Document Registration [id number] 07/29/2012 11:00:00 Document Registration [id number] 04/21/2012 11:51:00 Document Registration [id number] 03/24/2012 19:50:00 Document Registration [id number] 03/17/2012 08:00:00 Document Registration [id number] 02/02/2012 18:31:00 Document Registration [id number] 01/26/2012 13:00:00 Document Registration [id number] 11/11/2011 13:14:00 Document Registration [id number] 09/16/2011 05:15:00 Document Registration [id number] 04/13/2011 13:36:00 Document Registration [id number] 01/12/2011 15:44:00 Document Registration [id number] 08/29/2010 09:45:00 Document Registration [id number] 04/08/2010 20:05:00 Document Registration [id number] 03/18/2010 21:37:00 Document Registration [id number] 02/19/2010 12:26:00 Document Registration [id number] 11/14/2009 12:01:00 Document Registration [id number] 08/07/2009 09:18:00 Document Registration [id number] 02/05/2006 14:45:00 Document Registration
[2017-11-19] MEDS ORDERED: ONDANSETRON 4 MG/2 ML (SDV) Z0FRAN IVP ONE (18:15)
[2017-11-19] MEDS ORDERED: KETOROLAC 30 MG/ML VIAL IVP ONE (18:15)
[2017-11-19] MEDS ORDERED: NS IV 500 ML 500 ML IV ONE (18:22)
[2017-11-19] MEDS ORDERED: RT-ALBUTEROL SULF 2.5 MG/3 ML PRE-MIX VIAL INH STA (18:22)
--- NOTE | 2017-11-19 18:28 | ED Respiratory ---
General Chief Complaint: Respiratory Problems Stated Complaint: CHEST PAIN Nursing Triage Note: Pt reports increased SOA and intermittent chest pains for the last couple days. Pt reports the pain changes locations each time. Pt has hx COPD. Source: patient Exam Limitations: no limitations History of Present Illness Date Seen by Provider: Nov 19, 2017 Time Seen by Provider: 18:15 Initial Comments Patient presents to the ER by private conveyance with chief complaint last to 3 days she's had progressively worsening shortness of breath and some chest pains today that started in her right shoulder and right upper chest but not radiating and and they go away in a few seconds in the chest sharp pains in her left lower chest. She says she's got these pains before and they're usually attributed to pleuritic chest pain and she says is what they feel like again. She does not have a history of coronary artery disease however she does have bad diabetes with an A1c of 10 and COPD she quit smoking multiple years ago. She is on prednisone 10 mg and follows with her [facility], pulmonology. She saw him about 3 weeks ago. She's not having a productive cough or objective fever but she has felt some chills. She says she took her Vistaril for her anxiety this morning but did not think that it helped very much. She took her home albuterol by nebulizer twice today. Allergies and Home Medications Allergies Coded Allergies: codeine (Verified Allergy, Intermediate, hives, 05/14/16) Home Medications Albuterol Sulfate 8.5 Gm Hfa.aer.ad, 2 PUFF INH Q4H PRN for SHORTNESS OF BREATH, (Reported) Albuterol/Ipratropium 3 Ml Nebu, 3 ML NEB QID PRN for SHORTNESS OF BREATH, ( Reported) Alprazolam 0.5 Mg Tablet, 0.5 MG PO BID, (Reported) Arformoterol Tartrate 15 Mcg/2 Ml Vial.neb, 15 MCG NEB BID, (Reported) MIXES WITH BUDESONIDE Budesonide 0.5 Mg/2 Ml Ampul.neb, 0.5 MG NEB BID, (Reported) MIXES WITH BROVANA Cefdinir 300 Mg Capsule, 300 MG PO BID Prescribed by: WILLY NEAL on 06/10/17 1610 Cetirizine HCl 10 Mg Tablet, 10 MG PO DAILY, (Reported) Cholecalciferol (Vitamin D3) 1,000 Unit Tablet, 3,000 UNIT PO DAILY, (Reported) TAKES 3 (1,000 UNITS) TABLETS Empagliflozin 10 Mg Tablet, 10 MG PO DAILY, (Reported) Fluticasone Propionate 16 Gm Colwell.susp, 1 SPRAY NA BID PRN for ALLERGIES, ( Reported) Fluvoxamine Maleate 100 Mg Tablet, 150 MG PO BID, (Reported) TAKES 1 & 1/2 (100MG) TABLET Gabapentin 600 Mg Tablet, 600 MG PO TID, (Reported) Hydrochlorothiazide 25 Mg Tablet, 25 MG PO DAILY, (Reported) Hydroxyzine HCl 50 Mg Tablet, 50 MG PO TID, (Reported) Ibuprofen 800 Mg Tablet, 800 MG PO BID, (Reported) Insulin Aspart 300 Units/3 Ml Solution, SQ AC, (Reported) 60-200 = 0 201-250 = 3 251-300 = 5 301-350 = 7 351-400 = 0 >400 CALL Insulin Degludec 100 Unit/1 Ml Insuln.pen, 12-13 UNITS SC DAILY, (Reported) Lorazepam 1 Mg Tablet, 1 MG PO Q12H PRN for ANXIETY Prescribed by: MARIAH LAI on 11/19/172158 Metformin HCl 500 Mg Tablet, 1,000 MG PO BID, (Reported) TAKES 2 (500MG) TABLETS Mirtazapine 15 Mg Tablet, 15 MG PO HS, (Reported) Montelukast Sodium 10 Mg Tablet, 10 MG PO DAILY, (Reported) Omeprazole 20 Mg Capsule.dr, 20 MG PO DAILY, (Reported) Potassium Gluconate 99 Mg Tablet, 99 MG PO DAILY PRN for CRAMPS, (Reported) Prednisone 10 Mg Tab, 10 MG PO DAILY, (Reported) Prednisone 20 Mg Tab, 60 MG PO BID 3 tabs twice a day x3 days 2 tabs twice a day x3 days 1 tab twice a day x3 days 1 tab daily x3 days Resume your reg dose Prescribed by: MARIAH LAI on 11/19/172158 Roflumilast 500 Mcg Tablet, 500 MCG PO DAILY, (Reported) Rosuvastatin Calcium 20 Mg Tablet, 20 MG PO DAILY Prescribed by: TEMITOPE GARCIA on 04/07/17 0805 Tiotropium [place]udd[place]eston 4 Gm Mist.inhal, 1 PUFF IH DAILY, (Reported) Trazodone HCl 100 Mg Tablet, 100 MG PO HS, (Reported) Patient Home Medication List Home Medication List Reviewed: Yes Constitutional: No chills, No diaphoresis EENTM: No ear discharge, No ear pain Respiratory: see HPI, No cough, No phlegm Cardiovascular: see HPI, chest pain Gastrointestinal: No abdominal pain, No constipation, No diarrhea, No nausea Genitourinary: No discharge, No dysuria Musculoskeletal: No back pain, No joint pain Past Grgmwuu-Efgvep-Carohj Hx Patient Social History Alcohol Use: Denies Use Recreational Drug Use: No (smokes 2 PACKS A DAY) Type Used: Cigarettes Former Smoker, Quit: Apr 20, 2014 2nd Hand Smoke Exposure: No Recent Foreign Travel: No Contact w/Someone Who Travel: No Recent Infectious Disease Expo: No Recent Hopitalizations: No ( X 2, ANXIETY ATTACK, DEPRESSION) Immunizations Up To Date Tetanus Booster (TDap): Unknown PED Vaccines UTD: No Date of Pneumonia Vaccine: May 24, 2012 Date of Influenza Vaccine: Sep 29, 2016 Seasonal Allergies Seasonal Allergies: No Surgeries History of Surgeries: Yes (LEFT EYE--LASER REPAIR OF DETACHED RETINA) Surgeries: Section, Eye Surgery, Gallbladder, Tubal Ligation Respiratory History of Respiratory Disorde: Yes (HOME O2-CHRONIC RESPIRATORY FAILURE, NO VENTILATOR--PER PT) Respiratory Disorders: Asthma, Pneumonia, Chronic Bronchitis, Sleep Apnea, COPD , Emphysema Currently Using CPAP: Yes Currently Using BIPAP: No Cardiovascular History of Cardiac Disorders: Yes Cardiac Disorders: Hypertension Neurological History of Neurological Disord: No Reproductive System Hx Reproductive Disorders: No Sexually Transmitted Disease: Yes (HERPES) HIV/AIDS: No 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 Disorders: Denies [employer]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 History: Menopausal Gastrointestinal History of Gastrointestinal Di: Yes Gastrointestinal Disorders: Gastroesophageal Reflux, Gall Bladder Disease Musculoskeletal History of Musculoskeletal Dis: Yes (SHOULDER PAIN ) Musculoskeletal Disorders: Fibromyalgia, Fractures Endocrine History of Endocrine Disorders: Yes (OBESITY) Endocrine Disorders: Diabetes, Insulin dep HEENT Loss of Vision: Denies Hearing Impairment: Denies Cancer History of Cancer: No Psychosocial History of Psychiatric Problem: Yes Behavioral Health Disorders: Anxiety, Depression Integumentary History of Skin or Integumenta: Yes (RASHES, abd folds and beneath her breast bilaterally red) Skin/Integumentary Disorders: Recent Skin Changes, Herpes Blood Transfusions History of Blood Disorders: No Adverse Reaction to a Blood Tr: No Family Medical History Family Medial History: CHF grandmother Diabetes mellitus grandmother FH: CHF (congestive heart failure) History of - respiratory disease 03 FATHER (COPD) Physical Exam Vital Signs Vital Signs - First Documented 11/19/17 11/19/17 17:01 19:06 Temp 98.2 Pulse 111 Resp 18 B/P (MAP) 125/80 (95) Pulse Ox 95 O2 Delivery Room Air O2 Flow Rate 4.50 Capillary Refill : Less Than 3 Seconds General Appearance: WD/WN, no apparent distress Eyes: Bilateral Eye Normal Inspection, Bilateral Eye PERRL, Bilateral Eye EOMI HEENT: PERRL/EOMI, normal ENT inspection, pharynx normal Neck: non-tender, supple, normal inspection Respiratory: chest non-tender, no accessory muscle use, respiratory distress, decreased breath sounds, wheezing (few bilat) Cardiovascular: normal peripheral pulses, regular rate, rhythm Gastrointestinal: non tender, soft Neurologic/Psychiatric: alert, oriented x 3 Skin: normal color, warm/dry Progress/Results/Core Measures Suspected Sepsis Recent Fever Within 48 Hours: No Infection Criteria Present: None New/Unexplained Altered Menta: No Sepsis Screen: No Definite Risk Sepsis Diagnosis: SIRS Temperature:98.2 Pulse: 111 Respiratory Rate: 18 Laboratory Tests 11/19/17 17:50: White Blood Count 15.0H Blood Pressure 125 /80 Mean: 95 Laboratory Tests 11/19/17 17:50: Creatinine 1.04, Platelet Count 414H, Total Bilirubin 0.3 Results/Orders Lab Results Laboratory Tests Test 11/19/17 17:50 11/19/17 19:50 Range/Units White Blood Count 15.0 H 4.3-11.0 10^3/uL Red Blood Count 4.60 4.35-5.85 10^6/uL Hemoglobin 11.8 11.5-16.0 G/DL Hematocrit 38 35-52 % Mean Corpuscular Volume 82 80-99 FL Mean Corpuscular Hemoglobin 26 25-34 PG Mean Corpuscular Hemoglobin Concent 31 L 32-36 G/DL Red Cell Distribution Width 15.5 H 10.0-14.5 % Platelet Count 414 H 130-400 10^3/uL Mean Platelet Volume 10.1 7.4-10.4 FL Neutrophils (%) (Auto) 74 42-75 % Lymphocytes (%) (Auto) 16 12-44 % Monocytes (%) (Auto) 8 0-12 % Eosinophils (%) (Auto) 2 0-10 % Basophils (%) (Auto) 0 0-10 % Neutrophils # (Auto) 11.1 H 1.8-7.8 X 10^3 Lymphocytes # (Auto) 2.4 1.0-4.0 X 10^3 Monocytes # (Auto) 1.1 H 0.0-1.0 X 10^3 Eosinophils # (Auto) 0.3 0.0-0.3 10^3/uL Basophils # (Auto) 0.0 0.0-0.1 10^3/uL Neutrophils % (Manual) 45 % Lymphocytes % (Manual) 39 % Monocytes % (Manual) 7 % Eosinophils % (Manual) 3 % Basophils % (Manual) 1 % Band Neutrophils 5 % Blood Morphology Comment NORMAL Sodium Level 137 135-145 MMOL/L Potassium Level 3.8 3.6-5.0 MMOL/L Chloride Level 92 L 98-107 MMOL/L Carbon Dioxide Level 26 21-32 MMOL/L Anion Gap 19 H 5-14 MMOL/L Blood Urea Nitrogen 18 7-18 MG/DL Creatinine 1.04 0.60-1.30 MG/DL Estimat Glomerular Filtration Rate 58 BUN/Creatinine Ratio 17 Glucose Level 139 H 70-105 MG/DL Calcium Level 10.0 8.5-10.1 MG/DL Magnesium Level 2.2 1.8-2.4 MG/DL Total Bilirubin 0.3 0.1-1.0 MG/DL Aspartate Amino Transf (AST/SGOT) 34 5-34 U/L Alanine Aminotransferase (ALT/SGPT) 26 0-55 U/L Alkaline Phosphatase 90 40-136 U/L Troponin I < 0.30 < 0.30 <0.30 NG/ML C-Reactive Protein High Sensitivity 1.51 H 0.00-0.50 MG/DL Total Protein 7.9 6.4-8.2 GM/DL Albumin 4.4 3.2-4.5 GM/DL Micro Results Microbiology 11/19/17 Influenza Types A,B Antigen (BAN) - Final, Complete My Orders Orders - MARIAH LAI Ketorolac Injection (Toradol Injection) (11/19/17 18:15) Ondansetron Injection (Zofran Injectio (11/19/17 18:15) Cbc With Automated Diff (11/19/17 18:22) Comprehensive Metabolic Panel (11/19/17 18:22) Hs C Reactive Protein (11/19/17 18:22) Magnesium (11/19/17 18:22) Troponin I (11/19/17 18:22) Influenza A And B Antigens (11/19/17 18:22) Chest Pa/Lat (2 View) (11/19/17 18:22) Albuterol Pre-Mix Nebs (Rt) (Proventil (11/19/17 18:22) Albuterol/Ipra Inhalation Soln (Duoneb I (11/19/17 18:30) Saline Lock/Iv-Start (11/19/17 18:22) Ns Iv 500 Ml (Sodium Chloride 0.9%) (11/19/17 18:22) Continuous Ekg Monitoring (11/19/17 18:22) Svn Sm Volume Nebulizer Rt-Rfs (11/19/17 18:22) Hydroxyzine Oral (Vistaril Capsule) (11/19/17 18:30) Manual Differential (11/19/17 17:50) Methylprednisolone Sod Succ (Solu-Medrol (11/19/17 19:15) Azithromycin Tablet (Zithromax Tablet) (11/19/17 19:15) Troponin I (11/19/17 19:45) Lorazepam Tablet (Ativan Tablet) (11/19/17 19:45) Medications Given in ED Current Medications Medications Dose Ordered Sig/Frederick Route Start Time Stop Time Status Last Admin Dose Admin Albuterol/ Ipratropium 3 ml ONCE ONCE INH 11/19/17 18:30 11/19/17 18:31 DC 11/19/17 19:07 3 ML Azithromycin 500 mg ONCE ONCE PO 11/19/17 19:15 11/19/17 19:17 DC 11/19/17 19:44 500 MG Hydroxyzine Pamoate 25 mg ONCE ONCE PO 11/19/17 18:30 11/19/17 18:31 DC 11/19/17 18:31 25 MG Ketorolac Tromethamine 15 mg ONCE ONCE IVP 11/19/17 18:15 11/19/17 18:16 DC 11/19/17 18:24 15 MG Lorazepam 2 mg ONCE ONCE PO 11/19/17 19:45 11/19/17 19:46 DC 11/19/17 19:49 2 MG Methylprednisolone Sodium Succinate 125 mg ONCE ONCE IVP 11/19/17 19:15 11/19/17 19:17 DC 11/19/17 19:50 125 MG Ondansetron HCl 4 mg ONCE ONCE IVP 11/19/17 18:15 11/19/17 18:16 DC 11/19/17 18:24 4 MG Sodium Chloride 500 ml @ 0 mls/hr Q0M ONCE IV 11/19/17 18:22 11/19/17 18:25 DC 11/19/17 18:53 500 MLS/HR Vital Signs/I&O Vital Sign - Last 12Hours 11/19/17 11/19/17 17:01 19:06 Temp 98.2 Pulse 111 Resp 18 B/P (MAP) 125/80 (95) Pulse Ox 95 99 O2 Delivery Room Air Nasal Cannula O2 Flow Rate 4.50 Capillary Refill : Less Than 3 Seconds Blood Pressure Mean: 95 Progress Note #1: Time: 19:10 Progress Note The chest pains been going off and on for the last 2 days they are intermittent , sharp and only last for a few minutes and migrate. They're not reproducible they do sound like pleuritic chest pain. Her ED ACS score is negative to points to her very low risk. We'll going to do another troponin at 2 hours and if both these are negative and no rise over 20% she can go home from that standpoint. Her regular the breathing treatments and see if we can get her feeling better to go home on a steroid burst versus we need keep her here in the hospital. White blood cell count is mildly elevated she is on chronic prednisone and in the past this is similar to her white blood cell count in the 11-14,000 range. CRP is not significantly elevated. She may be amenable to outpatient treatment if we can get her breathing better. She is currently satting at 97% on her home dose of 4 L by nasal cannula. Her anxiety may also be driving some of her concerns. Progress Note #2: Time: 20:00 Progress Note The patient's breathing is improved after some breathing treatments by nebulizer. We'll going to put her on a burst dose of steroids and have her follow-up with her primary care physician next week. Her anxiety was improved with some Ativan. She is ready to go home. ECG Initial ECG Impression Date: Nov 19, 2017 Initial ECG Impression Time: 17:39 Initial ECG Rate: 107 Initial ECG Rhythm: S.Tach Initial ECG Intervals: Normal Initial ECG Impression: Normal, Nonspecific Changes Initial ECG Comparisson: No Previous ECG Available Comment No ST segment elevation or depression Diagnostic Imaging Diagonstic Imaging: Xray Plain Films/CT/US/NM/MRI: chest Comments VIA [facility]. [place], [place] NAME: RICHA RUTHERFORD [facility] REC#: [id number] PT STATUS: REG ER : 1970 PHYSICIAN: MARIAH LAI MD ADMIT DATE: 11/19/17/ER Draft Date of Exam:11/19/17 CHEST PA/LAT (2 VIEW) Clinical indication: Patient with left-sided chest pains and shortness breath. Patient has COPD. Exam: Chest x-ray PA and lateral views. Comparisons: Chest x-ray dated 06/10/2017. Findings: Lungs/pleura: There are minimal opacities involving both lung bases which may represent atelectasis versus infiltrate. Slightly hyperinflated lungs are seen with increased retrosternal clear space and slight flattening of the hemidiaphragms. There is no pneumothorax. There is no pleural effusion. Mediastinum: Unremarkable. Pulmonary vasculature: Unremarkable. Heart: Unremarkable. Bones/extrathoracic soft tissue: There are small degenerative spurs involving the thoracic spine. Impression: There is minimal bibasilar atelectasis versus infiltrate. Clinical correlation would better evaluate for an infectious or inflammatory process. Dictated on workstation # [id number] Dict: 11/19/17 1841 Trans: 11/19/17 1846 [facility] [id number] Interpreted by: DANA ORELALNA MD Electronically signed by: Departure Impression Impression: Primary Impression: Acute exacerbation of chronic obstructive airways disease Additional Impression: Anxiety Disposition: 01 HOME, SELF-CARE Condition: Improved Departure-Patient Inst. Decision time for Depature: 21:45 Referrals: TEMITOPE GARCIA DO (PCP/Family) Primary Care Physician Patient Instructions: Chronic Obstructive Pulmonary Disease (COPD), Including Emphysema Add. Discharge Instructions: Follow-up next week with your primary care provider. Take the prednisone as follows: 3 tablets twice a day for 3 days 2 tablets twice a day for 3 days 1 tablet twice a day for 3 days 1 tablet daily for 3 days Resume your 10 mg daily dosing. All discharge instructions reviewed with patient and/or family. Voiced understanding. Scripts Lorazepam (Ativan) 1 Mg Tablet 1 MG PO Q12H Y for ANXIETY, #14 TAB 0 Refills Prov: MARIAH LAI 11/19/17 Prednisone (Prednisone) 20 Mg Tab 60 MG PO BID, #39 TAB 0 Refills 3 tabs twice a day x3 days 2 tabs twice a day x3 days 1 tab twice a day x3 days 1 tab daily x3 days Resume your reg dose Prov: MARIAH LAI 11/19/17 Copy Copies To 1: TEMITOPE GARCIA DO MARIAH LAI Nov 19, 2017 18:28
[2017-11-19 18:30] LABS: BASOPHILS % (AUTO) 0 % (0-10); EOSINOPHILS # (AUTO) 0.3 10^3/uL (0.0-0.3); EOSINOPHILS % (AUTO) 2 % (0-10); HEMATOCRIT 38 % (35-52); HEMOGLOBIN 11.8 G/DL (11.5-16.0); LYMPHOCYTES # (AUTO) 2.4 X 10^3 (1.0-4.0); LYMPHOCYTES % (AUTO) 16 % (12-44); MEAN CORPUSCULAR HEMOGLOBIN 26 PG (25-34); MEAN CORPUSCULAR HGB CONC 31 G/DL (32-36); MEAN CORPUSCULAR VOLUME 82 FL (80-99); MEAN PLATELET VOLUME 10.1 FL (7.4-10.4); MONOCYTES # (AUTO) 1.1 X 10^3 (0.0-1.0); MONOCYTES % (AUTO) 8 % (0-12); NEUTROPHILS # (AUTO) 11.1 X 10^3 (1.8-7.8); NEUTROPHILS % (AUTO) 74 % (42-75); PLATELET COUNT 414 10^3/uL (130-400); RED CELL DISTRIBUTION WIDTH 15.5 % (10.0-14.5)
[2017-11-19] MEDS ORDERED: RT-ALBUTEROL/IPRATROPIUM 3 ML (DUONEB) VIAL INH ONE (18:30)
[2017-11-19] MEDS ORDERED: hydrOXYzine (VISTARIL) 25 MG CAP PO ONE (18:30)
[2017-11-19 18:47] LABS: ALANINE AMINOTRANSFERASE 26 U/L (0-55); ALBUMIN 4.4 GM/DL (3.2-4.5); ALKALINE PHOSPHATASE 90 U/L (40-136); BILIRUBIN,TOTAL 0.3 MG/DL (0.1-1.0); BUN/CREATININE RATIO 17; CARBON DIOXIDE 26 MMOL/L (21-32); CHLORIDE 92 MMOL/L (98-107); CREATININE SERUM 1.04 MG/DL (0.60-1.30); GFR ESTIMATED 58; GLUCOSE 139 MG/DL (70-105); MAGNESIUM 2.2 MG/DL (1.8-2.4); POTASSIUM 3.8 MMOL/L (3.6-5.0); SODIUM 137 MMOL/L (135-145); TOTAL PROTEIN 7.9 GM/DL (6.4-8.2)
--- NOTE | 2017-11-19 18:47 | Diagnostic Imaging Report ---
Clinical indication: Patient with left-sided chest pains and shortness breath. Patient has COPD. Exam: Chest x-ray PA and lateral views. Comparisons: Chest x-ray dated 06/10/2017. Findings: Lungs/pleura: There are minimal opacities involving both lung bases which may represent atelectasis versus infiltrate. Slightly hyperinflated lungs are seen with increased retrosternal clear space and slight flattening of the hemidiaphragms. There is no pneumothorax. There is no pleural effusion. Mediastinum: Unremarkable. Pulmonary vasculature: Unremarkable. Heart: Unremarkable. Bones/extrathoracic soft tissue: There are small degenerative spurs involving the thoracic spine. Impression: There is minimal bibasilar atelectasis versus infiltrate. Clinical correlation would better evaluate for an infectious or inflammatory process. Dictated by: Dictated on workstation # [id number]
[2017-11-19 18:51] LABS: BAND NEUTROPHILS 5 %; BASOPHILS % (MANUAL) 1 %; EOSINOPHILS % (MANUAL) 3 %; LYMPHOCYTES % (MANUAL) 39 %; MONOCYTES % (MANUAL) 7 %; NEUTROPHILS % (MANUAL) 45 %; RBC MORPH NORMAL
[2017-11-19] MEDS ORDERED: AZITHROMYCIN 250 MG TAB (ZITHROMAX) PO ONE (19:15)
[2017-11-19] MEDS ORDERED: methylPREDNISolone 125 MG (Solu-MEDROL) VIAL IVP ONE (19:15)
[2017-11-19] MEDS ORDERED: LORazepam 1 MG (ATIVAN) TAB PO ONE (19:45)
[2017-11-19] MEDS ORDERED: PRD20T PO ×2 (21:51→21:59)
[2017-11-19 21:58] VITALS: BP 0/0
[2017-11-19] MEDS ORDERED: LORA-405 PO (21:59)
== END 2017-11-19 21:58 | disposition home or self-care (01) ==
LOC: EDUNIT# 16:41 → ER 16:42
DX: J44.1 Chronic obstructive pulmonary disease with (acute) exacerbation (principal); F41.9 Anxiety disorder, unspecified; F32.9 Major depressive disorder, single episode, unspecified; E66.9 Obesity, unspecified; I10 Essential (primary) hypertension; E11.9 Type 2 diabetes mellitus without complications; K21.9 Gastro-esophageal reflux disease without esophagitis; G47.30 Sleep apnea, unspecified; Z87.01 Personal history of pneumonia (recurrent); Z87.59 Personal history of other complications of pregnancy, childbirth and the puerperium; Z98.51 Tubal ligation status; Z87.891 Personal history of nicotine dependence; Z88.5 Allergy status to narcotic agent; Z79.4 Long term (current) use of insulin; Z79.52 Long term (current) use of systemic steroids
CPT/HCPCS: 36415; 71046; 80053; 83735; 84484; 85007; 85027; 86141; 87804; 94640; 96374; 96375

== ENCOUNTER 2018-01-08 10:58 | Emergency (ER) | payer MEDICARE, MEDICAID ==
[~2018-01-08] VITALS: Ht 157.5 cm; Wt 98.9 kg
--- OUTSIDE RECORDS SUMMARY | 2018-01-08 11:12 | XMS REPORT ---
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 Name Role Phone ANDREI Elliott Unavailable PROBLEMS Type Condition ICD9-CM Code PFI37-FX Code Onset Dates Condition Status SNOMED Code Problem Oral lesion K13.70 Active 359005858 Problem Major depressive disorder, recurrent episode, unspecified severity F33.9 Active 17787970 Problem Chronic respiratory failure, unsp w hypoxia or hypercapnia J96.10 Active 76494420 Problem Alcohol use disorder, severe, in early remission, dependence F10.21 Active 13270912 Problem Alcohol use disorder, severe, in sustained remission, dependence F10.21 Active 98816774 Problem Major depression, recurrent, chronic F33.9 Active 56538961 Problem Generalized anxiety disorder F41.1 Active 24957407 Problem Amphetamine use disorder, moderate, dependence F15.20 Active 25477957 Problem Major depressive disorder, recurrent, moderate F33.1 Active 07501872 Problem Other specified menopausal and postmenopausal disorder 627.8 Active 328557472 Problem Chronic obstructive pulmonary disease, unspecified COPD type J44.9 Active 34583437 Problem Palpitation R00.2 Active 78735159 Problem Allergic rhinitis, cause unspecified 477.9 Active 26647020 Problem Type 2 diabetes mellitus with diabetic neuropathy E11.40 Active 86142966 Problem Chest pain, unspecified chest pain type R07.9 Active 80773527 Problem Anxiety F41.9 Active 02449569 ALLERGIES No Information ENCOUNTERS Encounter Location Date Diagnosis [facility] [address] [facility] [id number] [address] Nov, [facility] [address] [id number], [place] [address] 5477 Oct, [facility] [address] [facility] [id number], [place] [address] 3965 Aug, [facility] [id number] [place] [address] 88029- 2268 Aug, Alcohol use disorder, severe, in sustained remission, dependence F10.21 ; Amphetamine use disorder, moderate, dependence F15.20 ; Generalized anxiety disorder F41.1 ; Major depressive disorder, recurrent episode, unspecified severity F33.9 and BMI 40.0-44.9, adult Z68.41 [facility] [id number] [place] [address] 01668 -1092 14 Aug, 2017 BMI 40.0-44.9, adult Z68.41 ; Cough R05 and Pneumonia of both lower lobes due to infectious organism J18.9 [place] [id number] [place] [address] 86422- 0774 Jul, [place] [id number] [place] [address] 99628- 1965 Jul, [place] [id number] [place] [address] 03447- 5478 Jul, Amphetamine use disorder, moderate, dependence F15.20 ; Alcohol use disorder, severe, in sustained remission, dependence F10.21 ; Generalized anxiety disorder F41.1 and Major depressive disorder, recurrent, moderate F33.1 [place] [id number] [place] [address] 87278- 8137 13 Jul, 2017 Major depressive disorder, recurrent, moderate F33.1 [place] [id number] [place] [address] 36152- 5067 16 Jun, 2017 Major depressive disorder, recurrent, moderate F33.1 ; Generalized anxiety disorder F41.1 ; Alcohol use disorder, severe, in sustained remission, dependence F10.21 and Amphetamine use disorder, moderate, dependence F15.20 [place] [id number] [place] [address] 15091- 2821 05 May, 2017 Major depressive disorder, recurrent, moderate F33.1 ; Generalized anxiety disorder F41.1 ; Alcohol use disorder, severe, in sustained remission, dependence F10.21 and Amphetamine use disorder, moderate, dependence F15.20 [facility] [address] [address] Mar, Generalized anxiety disorder F41.1 and Major depression, recurrent, chronic F33.9 [facility] [address], [place] [address] Feb, Decreased breath sounds R06.89 and Pneumonia of both lower lobes due to infectious organism J18.9 [facility] [id number] [place] [address] 50100- 9452 January, Generalized anxiety disorder F41.1 and Major depression, recurrent, chronic F33.9 [facility] [id number] [place] [address] 06030- 5743 Nov, Generalized anxiety disorder F41.1 and Major depression, recurrent, chronic F33.9 [facility] [id number] [place] [address] 19399- 8385 Oct, [facility] [id number] [place] [address] 79815- 2606 Oct, [facility] [id number] [place] [address] 13902- 0379 Sep, Generalized anxiety disorder F41.1 and Major depressive disorder, recurrent, moderate F33.1 [facility] [address] [address] 6993 Sep, Generalized anxiety disorder F41.1 [facility] [address], [place] [address] 8426 Aug, Generalized anxiety disorder F41.1 [facility] [id number] [place] [address] 40624- 7747 Aug, [facility] [id number] [place] [address] 09298- 1822 Jul, [facility] [id number] [place] [address] 57127- 2111 Jul, [facility] [address], [place] [address]- 3976 Jul, [facility] [id number] [place] [address] 70894- 8561 Jun, [facility] [id number] [place] [address] 09310- 1891 Jun, Generalized anxiety disorder F41.1 and Major depression, recurrent, chronic F33.9 [facility] [id number] [place] [address] 76589- 1834 Jun, Encounter for immunization Z23 [facility] [id number] [place] [address] 45705- 5824 May, [facility] [id number] [place] [address] 79778- 1115 May, [facility] [id number] [place] [address] 46335- 6270 Apr, [facility] [id number] [place] [address] 84927- 9706 Apr, [facility] [id number] [place] [address] 31907- 0056 Mar, [facility] [id number] [place] [address] 44048- 2133 Mar, Generalized anxiety disorder F41.1 and Major depression, recurrent, chronic F33.9 [facility] [address] [place] [address] [id number] Mar, Encounter for dental examination Z01.20 [facility] [id number] [place] [address] 81160- 9247 Feb, [facility] [id number] [place] [address] 35984- 8212 January, [facility] [address] [place] [address] 97356- 1245 January, Generalized anxiety disorder F41.1 and Major depression, recurrent, chronic F33.9 [facility] [address], [place] [address]- 3476 Dec, [facility] [address], [place] [address]- 9266 Dec, [facility] [address], [place] [address]- 1209 Oct, [facility] [id number] [place] [address] 10445- 4536 Oct, [facility] [address] [place] [address] 61952- 6770 Oct, [facility] [id number] [place] [address] 17912- 0418 Oct, [facility] [address] [place] [address] 29479- 2940 Oct, [facility] [address], [place] [address]- 7879 Oct, [facility] [address], [place] [address]- 5480 Sep, [facility] [address], [place] [address]- 5212 Sep, Generalized anxiety disorder F41.1 and Anxiety disorder, unspecified F41.9 [facility] [address], [place] [address]- 0721 Sep, Chronic obstructive pulmonary disease, unspecified COPD type J44.9 [facility] [address], [place] [address]- 7171 Aug, [facility] [address], [place] [address]- 0006 Aug, [facility] [address], [place] [address]- 3448 Aug, Generalized anxiety disorder F41.1 and Major depression, recurrent, chronic F33.9 [place] [id number] [place] [address] 39341- 8425 Aug, Otitis media, left H66.92 ; Chronic obstructive pulmonary disease, unspecified COPD type J44.9 ; Yeast dermatitis B37.2 ; Thrush B37.0 and Oral lesion K13.70 [place] [address] 21021- 8123 Aug, Major depressive disorder, recurrent episode, unspecified severity F33.9 and Generalized anxiety disorder F41.1 [facility] [address] [id number] Aug, Encounter for dental examination Z01.[address] 96732- 1502 Jul, Otitis media, left H66.92 and COPD exacerbation J44.1 [place] [address] 85678- 9694 Jul, [address] 69694- 4589 Jul, Major depression, recurrent, chronic F33.9 and Generalized anxiety disorder F41.[address] 09981- 5679 Jul, [place] [address] 37112- 2403 Jul, Chronic obstructive pulmonary disease, unspecified COPD type J44.9 ; Chronic respiratory failure, unsp w hypoxia or hypercapnia J96.10 ; Type 2 diabetes mellitus with diabetic neuropathy E11.40 ; Palpitation R00.2 ; Chest pain, unspecified chest pain type R07.9 ; Oral lesion K13.70 and Anxiety F41.9 [facility] [address] 57577- 0749 Jun, [facility] [address] 72091- 1677 Jun, [facility] [address] [place] [address] 40653- 2247 Jun, [facility] [id number] [place] [address] 31523- 9676 Jun, [facility] [id number] [place] [address] 50107- 5121 Jun, Encounter for immunization Z23 ; Panlobular emphysema J43.1 and Unspecified open wound of abdominal wall, unspecified quadrant without penetration into peritoneal cavity, initial encounter S31.109A [facility] [address] 86739- 0863 Jun, Major depression F32.9 and Generalized anxiety disorder F41.1 [facility] [id number] [place] [address] [id number] Jun, Dental examination Z01.20 [facility] [id number] [place] [address] 37229- 5026 May, [facility] [id number] [place] [address] 52163- 2463 May, [facility] [id number] [place] [address] 46470- 6226 May, Callus of foot 700 ; Wound, open, foot 892.0 ; Wound, open, abdominal wall, anterior 879.2 and Misuse of prescription only drugs 305.90 [facility] [address] [place] [address] 81714- 3458 May, [facility] [id number] [place] [address] 98453- 2301 May, [facility] [id number] [place] [address] 91994- 2587 May, [facility] [id number] [place] [address] 04127- 4462 May, Skin infection 686.9 ; Cellulitis, leg 682.6 and Diabetes 250.00 [facility] [id number] [place] [address] 50733- 9596 16 May, 2015 [facility] [id number] [place] [address] 11277- 0090 May, [facility] [id number] [place] [address] 72251- 1987 May, [facility] [id number] [place] [address] 73082- 5215 May, Anxiety state, unspecified 300.00 and Major depression, recurrent 296.30 [facility] [id number] [place] [address] 48276- 9214 May, [facility] [id number] [place] [address] 94846- 6091 Apr, [facility] [id number] [place] [address] 04987- 1065 Apr, [facility] [id number] [place] [address] 09255- 2021 Apr, Diabetes with other specified manifestations, type II or unspecified type, not stated as uncontrolled 250.80 and Anxiety state, unspecified 300.00 [facility] [address] [place] [address] 85306- 6281 Apr, [facility] [id number] [place] [address] 30455- 0880 Apr, [facility] [id number] [place] [address] 46814- 0679 Apr, [facility] [id number] [place] [address] 62911- 6273 Apr, [facility] [address] [place] [address] 14870- 9846 Apr, Anxiety state, unspecified 300.00 ; Insomnia 780.52 ; Otitis media of left ear 382.9 and Upper respiratory infection 465.9 [facility] [address], [place] [address]- 5585 Apr, [facility] [address], [place] [address]- 7275 Apr, [facility] [address], [place] [address]- 0491 Apr, [facility] [address] [address] Mar, Dental examination V72.2 [facility] [address] 2340 Mar, [facility] [address], [place] [address]- 1592 Mar, [facility] [address] [address] Mar, Dental examination V72.2 [facility] [address], [place] [address]- 0905 Mar, [facility] [address] 8626 Mar, [facility] [address], [place] [address]- 5053 Mar, [facility] [address]- 1583 Mar, [facility] [address], [place] [address]- 8438 Mar, [facility] [address] [id number] [address]- 2106 Mar, Otitis media of left ear 382.9 ; Diabetes with other specified manifestations, type II or unspecified type, not stated as uncontrolled 250.80 ; Callus of foot 700 ; Oral lesion 528.9 and COPD (chronic obstructive pulmonary disease) 496 [facility] [address], [place] [address]- 5674 Mar, [facility] [address] [facility] [id number], [place] [address]- 7883 Feb, [facility] [address] [facility] [id number], [place] [address]- 1711 Feb, [facility] [address], [place] [address]- 1090 Feb, [facility] [address] [facility] [id number], [place] [address]- 7933 Feb, [facility] [address] [facility] [id number], [place] [address]- 2023 Feb, [facility] [address] [id number], [place] [address]- 4684 Feb, [facility] [address], [place] [address]- 1895 Feb, [facility] [address], [place] [address]- 7336 Feb, [facility] [address], [place] [address]- 8868 Feb, [facility] [address], [place] [address]- 8862 Feb, [facility] [address] [id number], [place] [address]- 5755 Feb, [facility] [address], [place] [address]- 5350 Feb, [facility] [address] [id number], [place] [address]- 5573 Feb, COPD (chronic obstructive pulmonary disease) 496 ; Hypoxia 799.02 ; Oral lesion 528.9 and Non compliance with medical treatment V15.81 [facility] [address] [id number], [place] [address]- 8484 Feb, [facility] [address], [place] [address]- 2546 Feb, [facility] [id number] [address] Feb, Dental examination V72.2 [facility] [id number] [place] [address] [id number] Feb, Dental examination V72.2 [facility] [id number] [place] [address] 21527- 4736 January, [facility] [id number] [place] [address] 81576- 3599 January, Hypoxia 799.02 and COPD (chronic obstructive pulmonary disease) 496 [facility] [id number] [place] [address] 17281- 6686 January, COPD (chronic obstructive pulmonary disease) 496 ; Diabetes mellitus 250.00 ; Anxiety 300.00 ; Oral aphthae 528.2 ; GERD (gastroesophageal reflux disease) 530.81 and Depression 311 [facility] [id number], [place] [address]- 3941 January, [facility] [id number] [place] [address] 08273- 7578 January, [facility] [id number] [place] [address] 213524- 0486 January, [facility] [id number], [place] [address]- 9286 January, [facility] [id number] [place] [address] 615159- 7306 January, Hypoxia 799.02 and COPD (chronic obstructive pulmonary disease) 496 [facility] [id number] [place] [address] 36973- 3796 January, [facility] [address], [place] [address]- 5519 January, [facility] [id number] [place] [address] 36242- 1912 January, [facility] [place] [facility] [address] [id number] [place] [address]- 2106 14 Dec, 2014 [facility] [place] [facility] [address] [id number] [place] [address]- 1380 Dec, [facility] [place] [facility] [address] [id number] [place] [address]- 5714 30 Nov, 2014 [facility] [place] [facility] [address] [id number] [place] [address]- 3139 27 Nov, 2014 [facility] [place] [facility] [address] [id number] [place] [address]- 7272 Nov, [facility] [place] [facility] [address] [id number] [place] [address]- 1581 Nov, [facility] [place] [facility] [address] [id number] [place] [address]- 7145 Nov, [facility] [place] [facility] [address] [id number] [place] [address]- 5055 24 Nov, 2014 [facility] [place] [facility] [address] [id number] [place] [address]- 3094 24 Nov, 2014 [facility] [place] [facility] [address] [id number] [place] [address]- 6291 Nov, [facility] [place] [facility] [address] [id number] [place] [address]- 2524 19 Nov, 2014 [facility] [place] [facility] [address] [id number] [place] [address]- 9805 13 Nov, 2014 [facility] [place] [facility] [address] [id number] [place] [address]- 8937 Nov, [facility] [place] [facility] [address] [id number] [place] [address]- 6345 13 Nov, 2014 [facility] [place] [facility] [address] [id number] [place] [address]- 5786 Nov, [facility] [place] [facility] [address] [id number] [place] [address]- 5154 Nov, [facility] [place] [facility] [address] [id number] [place] [address]- 0045 Nov, [facility] [place] [facility] [address] [id number] [place] [address]- 2557 Nov, [facility] [place] [facility] [address] [id number] [place] [address]- 9456 Nov, [facility] [place] [facility] [address] [id number] [place] [address]- 3482 Nov, [facility] [place] [facility] [address] [id number] [place] [address]- 0149 Nov, [facility] [place] [facility] [address] [id number] [place] [address]- 8403 Nov, [facility] [place] [facility] [address] [id number] [place] [address]- 7763 Nov, [facility] [place] [facility] [address] [id number] [place] [address]- 4240 Nov, [facility] [place] [facility] [address] [id number] [place] [address]- 4708 Nov, [facility] [place] [facility] [address] [id number] [place] [address]- 1643 Nov, [facility] [place] [facility] [address] [id number] [place] [address]- 7174 Nov, [facility] [place] [facility] [address] [id number] [place] [address]- 9266 Nov, [facility] [place] [facility] [address] [id number] [place] [address]- 6581 Nov, [facility] [place] [facility] [address] [id number] [place] [address]- 6517 Oct, [facility] [place] [facility] [address] [id number] [place] [address]- 2461 Oct, 2014 [facility] [place] [facility] [address] [facility] [id number] [place] [address] 24 Oct, 2014 [facility] [place] [facility] [address] [facility] [id number] [place] [address] 24 Oct, 2014 [facility] [place] [facility] [address] [facility] [id number] [place] [address] 13 Oct, 2014 [facility] [place] [facility] [address] [facility] [id number] [place] [address] 12 Oct, 2014 [facility] [place] [facility] [address] [facility] [id number] [place] [address] 12 Oct, 2014 [facility] [place] [facility] [address] [facility] [id number] [place] [address] Oct, 2014 [facility] [place] [facility] [address] [id number] [place] [address] Oct, 2014 [facility] [place] [facility] [address] [facility] [id number] [place] [address] Oct, 2014 [facility] [place] [facility] [address] [facility] [id number] [place] [address] Oct, 2014 [facility] [place] [facility] [address] [facility] [id number] [place] [address] 10 Oct, 2014 [facility] [place] [facility] [address] [facility] [id number] [place] [address] 10 Oct, 2014 [facility] [place] [facility] [address] [facility] [id number] [place] [address] 09 Oct, 2014 [facility] [place] [facility] [address] [facility] [id number] [place] [address] 05 Oct, 2014 [facility] [place] [facility] [address] [facility] [id number] [place] [address] 05 Oct, 2014 [facility] [place] [facility] [address] [id number] [place] [address] Oct, [facility] [place] [facility] [address] [id number] [place] [address] Sep, [facility] [place] [facility] [address] [id number] [place] [address] Sep, [facility] [place] [facility] [address] [id number] [place] [address] Sep, [facility] [place] [facility] [address] [id number] [place] [address] Sep, [facility] [place] [facility] [address] [id number] [place] [address] Sep, [facility] [facility] [address] [id number] [place] [address] Sep, [facility] [place] [facility] [address] [id number] [place] [address] 6515 Sep, [facility] [place] [facility] [address] [id number] [place] [address] 4062 Sep, [facility] [place] [facility] [address] [id number] [place] [address] 9967 Sep, [facility] [place] [facility] [address] [id number] [place] [address] 8553 Sep, [facility] [place] [facility] [address] [id number] [place] [address]- 1609 Sep, [facility] [place] [facility] [address] [id number] [place] [address]- 3467 Sep, [facility] [place] [facility] [address] [id number] [place] [address]- 0345 Sep, [facility] [place] [facility] [address] [id number] [place] [address] 8803 Sep, [facility] [place] [facility] [address] [id number] [place] [address] 1087 Sep, [facility] [place] [facility] [address] [id number] [place] [address]- 2702 31 Aug, 2014 [facility] [place] [facility] [address] [id number] [place] [address] 2172 31 Aug, 2014 [facility] [place] [facility] [address] [id number] [place] [address]- 2002 Aug, [facility] [place] [facility] [address] [id number] [place] [address]- 0776 Aug, [facility] [place] [facility] [address] [id number] [place] [address]- 3976 Aug, [facility] [place] [facility] [address] [id number] [place] [address]- 7818 Aug, [facility] [place] [address] [id number] [place] [address]- 0498 18 Aug, 2014 [facility] [place] [facility] [address] [id number] [place] [address]- 9552 17 Aug, 2014 [facility] [place] [facility] [address] [id number] [place] [address]- 9651 17 Aug, 2014 [facility] [place] [address] [id number] [place] [address]- 6403 Aug, [facility] [place] [address] [id number] [place] [address] 1935 Aug, [facility] [place] [facility] [address] [id number] [place] [address]- 6319 10 Aug, 2014 [facility] [address] [id number] [place] [address]- 4633 10 Aug, 2014 [facility] [address] [id number] [place] [address]- 9371 10 Aug, 2014 [facility] [place] [facility] [address] [id number] [place] [address]- 7793 10 Aug, 2014 [facility] [place] [facility] [address] [id number] [place] [address]- 8275 09 Aug, 2014 [facility] [address] [id number] [place] [address]- 3582 Aug, [facility] [place] [address] [id number] [place] [address]- 0972 Aug, [facility] [address] [id number] [place] [address] Aug, [facility] [address] [id number] [place] [address]- 0695 Aug, [facility] [place] [facility] [address] [id number] [place] [address]- 0029 Jul, [facility] [address] [id number] [place] [address]- 1491 Jul, [facility] [address] [id number] [place] [address]- 7107 Jul, [facility] [address] [id number] [place] [address]- 9948 Jul, [facility] [address] [id number] [place] [address]- 5361 Jul, [facility] [address] [id number] [place] [address]- 7015 Jul, [facility] [address] [id number] [place] [address]- 7642 Jul, [facility] [place] [address] [id number] [place] [address]- 7287 Jul, [facility] [address] [id number] [place] [address]- 4797 Jul, [facility] [address] [id number] [place] [address]- 2368 Jul, [facility] [address] [id number] [place] [address]- 7551 Jul, [facility] [address] [id number] [place] [address]- 7843 Jul, [facility] [address] [id number] [place] [address]- 3468 Jul, [facility] [address] [id number] [place] [address]- 4541 Jul, [facility] [address] [id number] [place] [address]- 7065 Jul, [facility] [address] [id number] [place] [address]- 7150 Jul, [facility] [address] [id number] [place] [address]- 6009 Jul, [facility] [address] [id number] [place] [address]- 4215 Jul, [facility] [address] [id number] [place] [address]- 1178 Jun, [facility] [address] [id number], [place] [address]- 5111 Jun, [facility] [address] [id number] [place] [address]- 1408 30 Jun, 2014 [facility] [address] [id number][place] [address]- 6718 30 Jun, 2014 [facility] [address] [id number], [place] [address]- 0133 29 Jun, 2014 [facility] [address] [id number], [place] [address]- 9398 29 Jun, 2014 [facility] [address] [id number] [place] [address]- 4544 Jun, [facility] [address] [id number], [place] [address]- 5889 Jun, [facility] [address] [id number][place] [address]- 3821 Jun, [facility] [address] [id number] [place] [address]- 7543 Jun, [facility] [address] [id number] [place] [address]- 3157 Jun, [facility] [address] [id number] [place] [address]- 0656 Jun, [facility] [address] [id number] [place] [address]- 5026 Jun, [facility] [address] [id number] [place] [address]- 7993 Jun, [facility] [address] [id number] [place] [address]- 4770 Jun, [facility] [address] [id number] [place] [address]- 5001 Jun, [facility] [address] [id number] [place] [address]- 3696 Jun, [facility] [address] [id number] [place] [address]- 2242 Jun, [facility] [address] [id number] [place] [address]- 2603 19 May, 2013 [facility] [address] [id number] [place] [address]- 9759 19 Sep, 2013 [facility] [address] [id number] [place] [address]- 2542 18 May, 2013 [facility] [address] [id number] [place] [address]- 0224 18 Sep, 2013 [facility] [address] [id number] [place] [address]- 2544 15 May, 2013 [facility] [address] [id number] [place] [address]- 2543 15 Sep, 2013 [facility] [address] [id number] [place] [address]- 3768 11 Sep, 2013 [facility] [address] [id number] [place] [address]- 2461 11 May, 2013 [facility] [address] [id number] [place] [address]- 2252 May, 2013 [facility] [address] [id number] [place] [address]- 6122 May, 2013 [facility] [address] [id number] [place] [address]- 9623 May, 2013 [facility] [address] [id number] [place] [address]- 1085 11 May, 2013 [facility] [address] [id number] [place] [address]- 0158 05 May, 2013 [facility] [address] [id number] [place] [address]- 1924 05 May, 2013 [facility] [address] [id number] [place] [address]- 0091 May, 2013 [facility] [address] [id number] [place] [address]- 9326 May, 2013 [facility] [address] [id number] [place] [address]- 3795 May, 2013 [facility] [address] [id number] [place] [address]- 8566 May, 2013 [facility] [address] [id number] [place] [address]- 5996 Apr, [facility] [address] [id number] [place] [address]- 0758 Apr, [facility] [address] [id number] [place] [address]- 1077 Apr, [facility] [address] [id number] [place] [address]- 7084 Apr, [facility] [address] [id number] [place] [address]- 9122 Apr, [facility] [address] [id number] [place] [address]- 6189 Apr, [facility] [address] [id number] [place] [address]- 1266 Apr, [facility] [address] [id number] [place] [address]- 5216 Apr, [facility] [address] [id number] [place] [address]- 0980 Apr, [facility] [address] [id number] [place] [address]- 6899 Apr, [facility] [address] [id number] [place] [address]- 7652 Apr, [facility] [address] [id number] [place] [address]- 9811 Apr, [facility] [address] [id number] [place] [address]- 6922 Apr, [facility] [address] [id number] [place] [address]- 8674 Apr, [facility] [address] [id number] [place] [address]- 1113 Apr, [facility] [address] [id number] [place] [address]- 1657 Apr, [facility] [address] [id number] [place] [address]- 2182 Apr, [facility] [address] [id number] [place] [address]- 7349 Apr, [facility] [address] [id number] [place] [address]- 0448 Apr, [facility] [address] [id number] [place] [address]- 4693 Apr, [facility] [address] [id number] [place] [address]- 3710 Apr, [facility] [address] [id number] [place] [address]- 6797 Apr, [facility] [address] [id number] [place] [address]- 3816 Mar, [facility] [address] [id number] [place] [address]- 4914 Mar, [facility] [address] [id number] [place] [address]- 2645 Mar, [facility] [address] [id number] [place] [address]- 5311 Mar, [facility] [address] [id number] [place] [address]- 9078 Mar, [facility] [address] [id number] [place] [address]- 0630 Mar, [facility] [address] [id number] [place] [address]- 5551 Mar, [facility] [address] [id number] [place] [address]- 2842 Mar, [facility] [address] [id number] [place] [address]- 9409 Mar, [facility] [address] [id number] [place] [address]- 9228 Mar, [facility] [address] [id number] [place] [address]- 4062 Mar, [facility] [address] [id number] [place] [address]- 0188 Mar, [facility] [address] [id number] [place] [address]- 8676 Mar, [facility] [address] [id number] [place] [address]- 2838 Mar, [facility] [address] [id number] [place] [address]- 0129 Mar, [facility] [address] [id number] [place] [address]- 7915 Mar, [facility] [address] [id number] [place] [address]- 8417 Feb, [facility] [address] [id number] [place] [address]- 3051 Feb, [facility] [address] [id number] [place] [address]- 4948 Feb, [facility] [address] [id number] [place] [address]- 3247 Feb, [facility] [address] [id number] [place] [address]- 4889 Feb, [facility] [address] [id number] [place] [address]- 4384 Feb, [facility] [address] [id number] [place] [address]- 3358 Feb, [facility] [address] [id number] [place] [address]- 5459 Feb, [facility] [address] [id number] [place] [address]- 1064 January, [facility] [address] [id number] [place] [address]- 3184 January, [facility] [address] [id number] [place] [address]- 0562 January, [facility] [address] [id number] [place] [address]- 5412 January, [facility] [address] [id number] [place] [address]- 3552 January, [facility] [address] [id number] [place] [address]- 5029 January, [facility] [address] [id number] [place] [address]- 7341 January, [facility] [address] [id number] [place] [address]- 8728 January, [facility] [address] [id number] [place] [address]- 9151 January, [facility] [address] [id number] [place] [address]- 1424 January, [facility] [address] [id number] [place] [address]- 5231 Dec, [facility] [address] [id number] [place] [address]- 4376 Dec, [facility] [address] [id number] [place] [address]- 9045 Dec, [facility] [address] [id number] [place] [address]- 3805 Dec, [facility] [place] [address] [id number] [place] [address]- 3883 Nov, [facility] [place] [facility] [address] [id number] [place] [address]- 8297 Nov, [facility] [place] [facility] [address] [id number] [place] [address]- 5165 Nov, [facility] [place] [facility] [address] [id number] [place] [address]- 1010 Nov, [facility] [place] [facility] [address] [id number] [place] [address]- 5660 Nov, [facility] [place] [facility] [address] [id number] [place] [address]- 8477 Nov, [facility] [place] [facility] [address] [id number] [place] [address]- 8518 Nov, [facility] [place] [facility] [address] [id number] [place] [address]- 8069 Nov, [facility] [place] [facility] [address] [id number] [place] [address]- 9064 Nov, [facility] [place] [facility] [address] [id number] [place] [address]- 4479 Nov, [facility] [place] [facility] [address] [id number] [place] [address]- 3849 Nov, [facility] [place] [facility] [address] [id number] [place] [address]- 3181 Oct, [facility] [place] [facility] [address] [id number] [place] [address]- 5931 Oct, [facility] [place] [facility] [address] [id number] [place] [address]- 0263 Oct, [facility] [place] [facility] [address] [id number] [place] [address]- 0300 Oct, [facility] [place] [facility] [address] [id number] [place] [address]- 8982 Oct, [facility] [place] [facility] [address] [id number] [place] [address]- 8532 Oct, [facility] [place] [facility] [address] [id number] [place] [address]- 4172 Oct, [facility] [place] [facility] [address] [id number] [place] [address]- 0815 Oct, [facility] [place] [facility] [address] [id number] [place] [id number] Oct, [facility] [place] [facility] [address] [id number] [place] [address]- 5959 Oct, [facility] [place] [facility] [address] [id number] [place] [address]- 3901 Oct, [facility] [place] [facility] [address] [id number] [place] [address]- 5763 Oct, [facility] [place] [facility] [address] [id number] [place] [address]- 8026 Oct, [facility] [place] [facility] [address] [id number] [place] [address] 2546 Oct, [facility] [place] [facility] [address] [id number] [place] [address] 2546 Oct, [facility] [place] [facility] [address] [id number] [place] [address] 2546 Oct, [facility] [place] [facility] [address] [id number] [place] [address]- 2116 Oct, [facility] [place] [facility] [address] [id number] [place] [address]- 2546 Oct, [facility] [place] [facility] [address] [id number] [place] [address]- 2544 Oct, [facility] [place] [facility] [address] [id number] [place] [address]- 2545 Oct, [facility] [place] [facility] [address] [id number] [place] [address]- 7685 Oct, [facility] [place] [facility] [address] [id number] [place] [address]- 2450 Oct, [facility] [place] [facility] [address] [id number] [place] [address]- 2547 Sep, [facility] [place] [facility] [address] [id number] [place] [address] 2547 Sep, [facility] [place] [facility] [address] [id number] [place] [address] 2546 Sep, [facility] [place] [facility] [address] [id number] [place] [address]- 2548 Sep, [facility] [place] [facility] [address] [id number] [place] [address]- 2542 Sep, [facility] [place] [facility] [address] [id number] [place] [address]- 4416 Sep, [facility] [place] [facility] [address] [id number] [place] [address]- 6551 Sep, [facility] [place] [facility] [address] [id number] [place] [address]- 8611 Sep, [facility] [place] [facility] [address] [id number] [place] [address]- 2535 Sep, [facility] [place] [facility] [address] [id number] [place] [address]- 2836 Sep, [facility] [place] [facility] [address] [id number] [place] [address]- 3628 Sep, [facility] [place] [facility] [address] [id number] [place] [address]- 8940 Sep, [facility] [place] [facility] [address] [id number] [place] [address]- 4936 Sep, [facility] [place] [facility] [address] [id number] [place] [address]- 1913 Sep, [facility] [place] [facility] [address] [id number] [place] [address]- 0257 Sep, [facility] [place] [facility] [address] [id number], [place] [address]- 9090 Sep, [facility] [place] [facility] [address] [id number], [place] [address]- 5206 Sep, [facility] [place] [facility] [address] [id number] [place] [address] Sep, [facility] [place] [facility] [address] [id number] [place] [address] Aug, [facility] [place] [facility] [address] [id number] [place] [address] Aug, [facility] [place] [facility] [address] [id number] [place] [address] 30 Aug, 2012 [facility] [address] [id number] [place] [address] 30 Aug, 2012 [facility] [address] [id number] [place] [address] 19 Aug, 2012 [facility] [address] [id number] [place] [address] 19 Aug, 2012 [facility] [address] [id number] [place] [address] 18 Aug, 2012 [facility] [address] [id number] [place] [address]- [address] 18 Aug, 2013 [facility] [address] [id number] [place] [address] 7695 18 Aug, 2013 [facility] [address] [id number] [place] [address]- 3971 18 Aug, 2013 [facility] [address] [id number] [place] [address]28 18 Aug, 2013 [facility] [address] [id number] [place] [address] 2447 18 Aug, 2013 [facility] [address] [facility] [id number] [place] [address] 13 Aug, 2013 [facility] [place] [facility] [address] [id number] [place] [address]- 3056 13 Aug, 2013 [facility] [place] [facility] [address] [id number] [place] [address] 09 Aug, 2013 [facility] [place] [facility] [address] [id number] [place] [address]- [address] 06 Aug, 2013 [facility] [place] [facility] [address] [id number] [place] [address]- [address] 06 Aug, 2013 [facility] [place] [facility] [address] [id number] [place] [address] Jul, [facility] [place] [facility] [address] [id number] [place] [address] Jul, [facility] [place] [facility] [address] [id number] [place] [address] 87[address] Jul, [facility] [place] [facility] [address] [id number] [place] [address] 28[address] Jul, [facility] [place] [facility] [address] [id number] [place] [address] Jul, [facility] [place] [facility] [address] [id number] [place] [address] 2969 Jul, [facility] [place] [facility] [address] [id number] [place] [address] Jul, [facility] [place] [facility] [address] [id number] [place] [address] 49[address] Jul, [facility] [place] [facility] [address] [id number], [place] [address] Jul, [facility] [place] [facility] [address] [id number] [place] [address] 395[address] Jul, [facility] [place] [facility] [address] [id number], [place] [address] Jun, [facility] [place] [facility] [address] [id number], [place] [address] Jun, [facility] [place] [facility] [address] [id number], [place] [address] Jun, [facility] [place] [facility] [address] [id number], [place] [address] Jun, [facility] [place] [facility] [address] [id number], [place] [address] Jun, [facility] [place] [facility] [address] [id number], [place] [address]- [address] Jun, [facility] [place] [facility] [address] [id number], [place] [address] Jun, [facility] [address] [id number] [place] [address] Jun, [facility] [place] [facility] [address] [id number] [place] [address]- [address]20 Jun, [facility] [place] [facility] [address] [id number] [place] [address]- [address]77 May, [facility] [place] [facility] [address] [id number] [place] [address] 18[address] May, [facility] [place] [facility] [address] [id number] [place] [address] May, [facility] [place] [facility] [address] [id number] [place] [address]- 8[address] May, [facility] [place] [facility] [address] [id number] [place] [address]- 7[address] Apr, [facility] [place] [facility] [address] [id number] [place] [address] Apr, [facility] [place] [facility] [address] [id number] [place] [address] Mar, [facility] [place] [facility] [address] [id number] [place] [address] 8[address] Mar, [facility] [place] [facility] [address] [id number] [place] [address] 455[address] Feb, [facility] [place] [facility] [address] [id number] [place] [address]- 9767 Feb, [facility] [place] [facility] [address] [id number] [place] [address] 3467 January, [facility] [place] [facility] [address] [id number] [place] [address]- 6[address] January, [facility] [place] [facility] [address] [id number] [place] [address] 36[address] January, [facility] [place] [facility] [address] [id number] [place] [address]- [address]148 30 Dec, 2012 [facility] [address] [id number] [place] [address] 29 Dec, 2012 [facility] [address] [id number] [place] [address] Dec, [facility] [address] [id number] [place] [address] Dec, [facility] [address] [id number] [place] [address]- 59[address] Dec, [facility] [address] [id number] [place] [address]- 9435 Dec, [facility] [address] [id number] [place] [address] Dec, [facility] [address] [id number] [place] [address]- 245[address] Nov, [facility] [address] [id number] [place] [address]- [address]57 18 Nov, 2012 [facility] [address] [id number] [place] [address]- 7065 18 Nov, 2012 [facility] [address] [id number] [place] [address]- 9532 14 Nov, 2012 [facility] [address] [id number] [place] [address]- 9095 Nov, [facility] [address] [id number] [place] [address]- 24[address] Oct, [facility] [place] [facility] [address] [id number] [place] [address] Oct, [facility] [address] [id number] [place] [address]- 9079 Oct, [facility] [address] [id number] [place] [address]- 7271 Oct, [facility] [address] [id number] [place] [address]- 5141 Oct, [facility] [place] [facility] [address] [facility] [id number] [place] [address]- 9086 Oct, [facility] [place] [facility] [address] [facility] [id number] [place] [address]- [address]272 Oct, [facility] [place] [facility] [address] [facility] [id number] [place] [address]- 4957 Oct, [facility] [address] [id number] [place] [address]- 7[address] 15 Oct, 2012 [facility] [place] [facility] [address] [facility] [id number] [place] [address] Oct, [facility] [address] [id number] [place] [address] Oct, [facility] [place] [facility] [address] [facility] [id number] [place] [address] Oct, [facility] [address] [id number] [place] [address] Sep, [facility] [place] [facility] [address] [facility] [id number] [place] [address] Sep, [facility] [place] [facility] [address] [id number] [place] [address] Sep, [facility] [place] [facility] [address] [facility] [id number] [place] [address] Sep, [facility] [place] [facility] [address] [facility] [id number] [place] [address] Sep, [facility] [place] [facility] [address] [facility] [id number] [place] [address] Sep, [facility] [place] [facility] [address] [id number] [address] 05 Sep, 2012 [facility] [place] [facility] [address] [id number] [place] [address] Sep, [facility] [place] [facility] [address] [id number] [place] [address] 4966 Aug, [facility] [place] [facility] [address] [id number] [place] [address] 2546 Aug, [facility] [place] [facility] [address] [id number] [place] [address] 1106 Aug, [facility] [place] [facility] [address] [id number] [place] [address] 2541 Aug, [facility] [place] [facility] [address] [id number] [place] [address] 69[address] Aug, [facility] [place] [facility] [address] [id number] [place] [address] Aug, [facility] [place] [facility] [address] [id number] [place] [address]77 Jul, [facility] [place] [facility] [address] [id number] [place] [address] 69[address] Jul, [facility] [place] [facility] [address] [id number] [place] [address] 5673 Jul, [facility] [place] [facility] [address] [id number] [place] [address] 8181 Jul, [facility] [place] [facility] [address] [id number] [place] [address] 2541 Jul, [facility] [place] [facility] [address] [id number] [place] [address] 2547 Jul, [facility] [place] [facility] [address] [id number] [place] [address] 2546 Jul, [facility] [place] [facility] [address] [id number] [place] [address] 2546 Jul, [facility] [place] [facility] [address] [id number] [place] [address]135 Jul, [facility] [place] [facility] [address] [id number] [place] [address] 4716 Jul, [facility] [place] [facility] [address] [id number] [place] [address] 7996 Jul, [facility] [place] [facility] [address] [id number] [place] [address] 4026 Jul, [facility] [place] [facility] [address] [id number] [place] [address] 8517 Jul, [facility] [place] [facility] [address] [id number] [place] [address] 0592 Jul, [facility] [place] [facility] [address] [id number] [place] [address] 67[address] Jun, [facility] [place] [facility] [address] [id number] [place] [address] 6056 May, [facility] [place] [facility] [address] [id number] [place] [address]89 24 May, 2012 [facility] [place] [facility] [address] [id number] [place] [address]77 08 May, 2012 [facility] [place] [facility] [address] [id number] [place] [address] 2412 07 May, 2012 [facility] [place] [facility] [address] [id number], [place] [address] Apr, [facility] [place] [facility] [address] [id number], [place] [address] 8199 Apr, [facility] [place] [facility] [address] [id number] [place] [address] 3555 Apr, [facility] [place] [facility] [address] [id number] [place] [address] 4129 Apr, [facility] [place] [facility] [address] [id number] [place] [address]- 3411 Apr, [facility] [place] [facility] [address] [id number] [place] [address]- 3947 Apr, [facility] [address] [id number] [place] [address] 9638 Mar, [facility] [place] [facility] [address] [id number] [place] [address] 2907 Mar, [facility] [address] [id number] [place] [address] 4134 Feb, [facility] [place] [facility] [address] [id number] [place] [address] 36[address] January, [facility] [address] [id number] [place] [address] 6157 January, [facility] [place] [facility] [address] [id number] [place] [address] 2137 January, [facility] [address] [id number] [place] [address]- 3202 January, [facility] [address] [id number] [place] [address]- 1786 Dec, [facility] [place] [facility] [address] [id number] [place] [address]- 7948 Dec, [facility] [address] [id number] [place] [address] 8003 Nov, [facility] [place] [facility] [address] [id number] [place] [address]- 1122 Nov, [facility] [place] [facility] [address] [id number] [place] [address] 9895 21 Nov, 2011 [facility] [place] [facility] [address] [id number] [place] [address]- 8465 16 Nov, 2011 [facility] [place] [facility] [address] [id number] [place] [address]- 1264 14 Nov, 2011 [facility] [place] [facility] [address] [id number] [place] [address] 4052 Nov, [facility] [place] [facility] [address] [id number] [place] [address]- 2335 Oct, [facility] [place] [facility] [address] [id number] [place] [address] 5735 Oct, [facility] [place] [facility] [address] [id number] [place] [address]- 7570 Oct, [facility] [place] [facility] [address] [id number] [place] [address]- 7576 Sep, [facility] [place] [facility] [address] [id number] [place] [address]- 7274 Sep, [facility] [place] [facility] [address] [id number] [place] [address]- 6247 Sep, [facility] [place] [facility] [address] [id number] [place] [address]- 0544 Sep, [facility] [place] [facility] [address] [id number] [place] [address]- 1227 Sep, [facility] [place] [facility] [address] [id number] [place] [address]- 3926 Aug, [facility] [place] [facility] [address] [id number] [place] [address]- 9384 Aug, [facility] [place] [facility] [address] [id number] [place] [address]- 0116 Aug, [facility] [place] [facility] [address] [id number], [place] [address]- 1425 Aug, [facility] [place] [facility] [address] [id number] [place] [address]- 2152 Jul, [facility] [place] [facility] [address] [id number] [place] [address] 3656 Jul, [facility] [place] [facility] [address] [id number], [place] [address] 5140 Jul, [facility] [place] [facility] [address] [id number], [place] [address]- 1437 06 Jul, 2011 [facility] [place] [facility] [address] [id number] [place] [address]- 4814 Jul, [facility] [place] [facility] [address] [id number] [place] [address]- 8078 10 Jun, 2011 [facility] [place] [facility] [address] [facility] [id number] [place] [address]- 4056 10 Jun, 2011 [facility] [place] [facility] [address] [id number] [place] [address]- 1765 16 May, 2011 [facility] [place] [facility] [address] [id number] [place] [address]- 1618 Apr, [facility] [place] [facility] [address] [id number] [place] [address]- 2232 12 Dec, 2010 [facility] [place] [facility] [address] [facility] [id number] [place] [address]- 5635 20 Aug, 2010 [facility] [place] [facility] [address] [id number] [place] [address]- 6013 14 Aug, 2010 [facility] [place] [facility] [address] [facility] [id number] [place] [address]- 0557 14 Aug, 2010 [facility] [place] [facility] [address] [facility] [id number] [place] [address]- 3194 22 Jun, 2010 [facility] [place] [facility] [address] [facility] [id number] [place] [address]- 8268 20 Jun, 2010 [facility] [place] [facility] [address] [facility] [id number], [place] [address]- 6005 15 Jun, 2010 [facility] [place] [facility] [address] [id number] [place] [address]- 6304 16 Aug, 2009 [facility] [place] [facility] [address] [facility] [id number] [place] [address]- 6294 11 Aug, 2009 [facility] [place] [facility] [address] [facility] [id number] [place] [address]- 2731 11 Aug, 2009 [facility] [place] [facility] [id number], [place] [address] Aug, [facility] [id number], [place] [address] 3056 Jul, [facility] [id number], [place] [address]- 2493 Jul, [facility] [id number] [place] [address]- [address] Jul, [facility] [id number], [place] [address] 0084 Jul, [facility] [id number] [place] [address]- 7458 Jun, [facility] [id number] [place] [address]- 7294 Jun, [facility] [id number] [place] [address]- 4266 Jun, [facility] [id number], [place] [address]- 3050 Jun, [facility] [id number], [place] [address]- 0176 Jun, [facility] [id number], [place] [address] Jun, [facility] [id number], [place] [address]- 2507 Jun, IMMUNIZATIONS No Known Immunizations SOCIAL HISTORY Never Assessed REASON FOR VISIT f/u PLAN OF CARE Activity Details Follow Up 4 Weeks Reason: VITAL SIGNS Height 62 in 2017-03-22 Weight 249 lbs 2017-03-22 Respiratory Rate 26 2017-03-22 BMI 45.54 kg/m2 2017-03-22 Blood pressure systolic 132 mmHg 2017-03-22 Blood pressure diastolic 72 mmHg 2017-03-22 MEDICATIONS Medication Instructions Dosage Frequency Start Date End Date Duration Status Ibuprofen 800 MG TAKE 1 TABLET BY MOUTH THREE TIMES DAILY WITH FOOD MUST LAST 30 DAYS 30 Active Mirtazapine 15 MG Orally Once a day 1 tablet at bedtime 24h 30 days Active Nebulizer 1 as directed Feb, Active TRUEtest Test USE TO TEST BLOOD GLUCOSE ONCE DAILY 50 Active Test strips Test Strips test blood sugar Active Omeprazole 20 MG Orally Once a day 1 capsule 24h 30 Active Ipratropium-Albuterol 0.5-2.5 (3) MG/3ML Inhalation Four times a day 3 ml 6h January, Active Jardiance 10 MG Orally Once a day 1 tablet 24h Active Loratadine 10 MG take 1 tablet by Oral route 1 time per day take at hs 24h Aug, Active Trazodone HCl 100 MG Orally Once a day 1 tablet at bedtime 24h Nov, 30 days Active Symbicort 160-4.5 MCG/ACT Inhalation Twice a day 2 puffs 12h Apr, Active PredniSONE 10 MG Orally Once a day 1 tablet 24h Active Daliresp 500 mcg take 1 tablet (500 mcg) by oral route once daily Jul, Active Oxygen 2-3 L/NC nasal continuous as directed January, Active Lancets Active Neurontin 600 MG Orally Three times a day 1 tablet 8h Aug, 30 days Active ProAir HFA 108 (90 Base) MCG/ACT INHALE 2 PUFFS BY MOUTH EVERY FOUR HOURS NEEDED FOR SHORTNESS OF BREATH OR COUGH 17 Active Trulicity 0.75 MG/0.5ML 0.5 ml Active Fluvoxamine Maleate 100 MG Orally Twice a day 1.5 tablet 12h Mar, 30 day(s) Active metformin 500 mg take 1 tablet 12h Sep, Active Tresiba FlexTouch 100 UNIT/ML Active Klonopin 0.5 MG Orally please start when hext Xanax refill is due Twice a day 1 tablet 12Mar, 30 days Active HydrOXYzine HCl 50 MG Orally three times a day 1 tablet as needed 8h 30 days Active RESULTS No Results PROCEDURES Procedure Date Ordered Result Body Site [facility] VISIT ESTABLISHED PATIENT March 22, 2017 INSTRUCTIONS MEDICATIONS ADMINISTERED No Known Medications MEDICAL (GENERAL) HISTORY Type Description Date Medical [...]
--- OUTSIDE RECORDS SUMMARY | 2018-01-08 11:20 | XMS REPORT ---
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 Name Role Phone BENNY Arreola Unavailable PROBLEMS Type Condition ICD9-CM Code [id number] Code Onset Dates Condition Status SNOMED Code Problem Oral lesion K13.70 Active 718665146 Problem Major depressive disorder, recurrent episode, unspecified severity F33.9 Active 17669255 Problem Chronic respiratory failure, unsp w hypoxia or hypercapnia J96.10 Active 06936216 Problem Alcohol use disorder, severe, in early remission, dependence F10.21 Active 90299922 Problem Alcohol use disorder, severe, in sustained remission, dependence F10.21 Active 19973573 Problem Major depression, recurrent, chronic F33.9 Active 25281228 Problem Generalized anxiety disorder F41.1 Active 26814293 Problem Amphetamine use disorder, moderate, dependence F15.20 Active 69825826 Problem Major depressive disorder, recurrent, moderate F33.1 Active 63370368 Problem Other specified menopausal and postmenopausal disorder 627.8 Active 114823928 Problem Chronic obstructive pulmonary disease, unspecified COPD type J44.9 Active 33559690 Problem Palpitation R00.2 Active 80494887 Problem Allergic rhinitis, cause unspecified 477.9 Active 62168991 Problem Type 2 diabetes mellitus with diabetic neuropathy E11.40 Active 62406783 Problem Chest pain, unspecified chest pain type R07.9 Active 15144831 Problem Anxiety F41.9 Active 76471926 ALLERGIES Substance Reaction Event Type Date Status Codeine Phosphate Unknown Drug Allergy Feb, Active ENCOUNTERS Encounter Location Date Diagnosis [facility] [id number], [place] [address] Nov, [facility] [id number], [place] [address] 63[address] Oct, [facility] [address], [place] [address] Aug, [place] [id number] [place] [address] 00779- 8775 Aug, Alcohol use disorder, severe, in sustained remission, dependence F10.21 ; Amphetamine use disorder, moderate, dependence F15.20 ; Generalized anxiety disorder F41.1 ; Major depressive disorder, recurrent episode, unspecified severity F33.9 and BMI 40.0-44.9, adult Z68.41 [facility] [id number] [place] [address] 56946 -5494 14 Aug, 2017 BMI 40.0-44.9, adult Z68.41 ; Cough R05 and Pneumonia of both lower lobes due to infectious organism J18.9 [place] [id number] [place] [address] 78128- 9530 Jul, [place] [id number] [place] [address] 16076- 6871 Jul, [place] [id number] [place] [address] 30166- 9232 Jul, Amphetamine use disorder, moderate, dependence F15.20 ; Alcohol use disorder, severe, in sustained remission, dependence F10.21 ; Generalized anxiety disorder F41.1 and Major depressive disorder, recurrent, moderate F33.1 [place] [id number] [place] [address] 77276- 9634 Jul, Major depressive disorder, recurrent, moderate F33.1 [place] [id number] [place] [address] 20241- 7800 16 Jun, 2017 Major depressive disorder, recurrent, moderate F33.1 ; Generalized anxiety disorder F41.1 ; Alcohol use disorder, severe, in sustained remission, dependence F10.21 and Amphetamine use disorder, moderate, dependence F15.20 [place] [address] [address] 0073 05 May, 2017 Major depressive disorder, recurrent, moderate F33.1 ; Generalized anxiety disorder F41.1 ; Alcohol use disorder, severe, in sustained remission, dependence F10.21 and Amphetamine use disorder, moderate, dependence F15.20 [facility] [id number] [place] [address] 03821- 1628 Mar, Generalized anxiety disorder F41.1 and Major depression, recurrent, chronic F33.9 [facility] [id number] [place] [address] 76808 -8637 Feb, Decreased breath sounds R06.89 and Pneumonia of both lower lobes due to infectious organism J18.9 [facility] [id number] [place] [address] 01341- 0286 January, Generalized anxiety disorder F41.1 and Major depression, recurrent, chronic F33.9 [facility] [id number] [place] [address] 83097- 7526 Nov, Generalized anxiety disorder F41.1 and Major depression, recurrent, chronic F33.9 [facility] [id number] [place] [address] 43405- 6920 Oct, [facility] [id number] [place] [address] 62294- 3758 Oct, [facility] [id number] [place] [address] 50503- 2472 Sep, Generalized anxiety disorder F41.1 and Major depressive disorder, recurrent, moderate F33.1 [facility] [id number] [place] [address] 68472- 7375 Sep, Generalized anxiety disorder F41.1 [facility] [id number] [place] [address] 88406- 7283 Aug, Generalized anxiety disorder F41.1 [facility] [id number] [place] [address] 39462- 8346 Aug, [facility] [id number] [place] [address] 55855- 4843 Jul, [facility] [address], [place] [address]- 8452 Jul, [facility] [id number] [place] [address] 34961- 9048 Jul, [facility] [id number] [address]- 0861 Jun, [facility] [id number] [place] [address] 88063- 8963 Jun, Generalized anxiety disorder F41.1 and Major depression, recurrent, chronic F33.9 [facility] [id number] [place] [address] 61189- 1562 Jun, Encounter for immunization Z23 [facility] [id number] [place] [address] 97110- 7063 May, [facility] [id number] [place] [address] 05723- 1012 May, [facility] [id number] [place] [address] 55464- 4361 Apr, [facility] [id number] [place] [address] 80577- 8413 Apr, [facility] [address], [place] [address] 1942 Mar, [facility] [id number] [place] [address] 77407- 3439 Mar, Generalized anxiety disorder F41.1 and Major depression, recurrent, chronic F33.9 [facility] [address] [id number] [id number] Mar, Encounter for dental examination Z01.20 [facility] [address], [place] [address]- 2183 Feb, [facility] [address], [place] [address]- 2173 January, [facility] [id number] [address]- 9121 January, Generalized anxiety disorder F41.1 and Major depression, recurrent, chronic F33.9 [facility] [address], [place] [address]- 0459 Dec, [facility] [address], [place] [address]- 3229 Dec, [facility] [id number] [place] [address] 09349- 9405 Oct, [facility] [id number] [place] [address] 62428- 5851 Oct, [facility] [id number] [place] [address] 43815- 6005 Oct, [facility] [id number] [place] [address] 19010- 4522 Oct, [facility] [address], [place] [address]- 5499 Oct, [facility] [id number] [place] [address] 08651- 7975 Oct, [facility] [address], [place] [address]- 4814 Sep, [facility] [address], [place] [address]- 8420 Sep, Generalized anxiety disorder F41.1 and Anxiety disorder, unspecified F41.9 [facility] [address], [place] [address]- 6016 Sep, Chronic obstructive pulmonary disease, unspecified COPD type J44.9 [facility] [address], [place] [address]- 8178 Aug, [facility] [address], [place] [address]- 0945 Aug, [facility] [id number] [place] [address] 06511- 2836 Aug, Generalized anxiety disorder F41.1 and Major depression, recurrent, chronic F33.[address] 86201- 7414 Aug, Otitis media, left H66.92 ; Chronic obstructive pulmonary disease, unspecified COPD type J44.9 ; Yeast dermatitis B37.2 ; Thrush B37.0 and Oral lesion K13.70 [place] [id number] [place] [address] 16755- 5474 Aug, Major depressive disorder, recurrent episode, unspecified severity F33.9 and Generalized anxiety disorder F41.1 [facility] [id number] [place] [address] [id number] Aug, Encounter for dental examination Z01.[address] 55862- 8704 Jul, Otitis media, left H66.92 and COPD exacerbation J44.[address] 17037- 5328 Jul, [address] 09568- 9406 Jul, Major depression, recurrent, chronic F33.9 and Generalized anxiety disorder F41.1 [place] [id number] [place] [address] 49143- 9805 Jul, [address] 40351- 9657 Jul, Chronic obstructive pulmonary disease, unspecified COPD type J44.9 ; Chronic respiratory failure, unsp w hypoxia or hypercapnia J96.10 ; Type 2 diabetes mellitus with diabetic neuropathy E11.40 ; Palpitation R00.2 ; Chest pain, unspecified chest pain type R07.9 ; Oral lesion K13.70 and Anxiety F41.9 [place] [id number] [place] [address] 34761- 1792 Jun, [facility] [id number] [place] [address] 96187- 9242 Jun, [facility] [id number] [place] [address] 22811- 5457 Jun, [facility] [id number] [place] [address] 44148- 1197 Jun, [facility] [address] 26244- 2539 Jun, Encounter for immunization Z23 ; Panlobular emphysema J43.1 and Unspecified open wound of abdominal wall, unspecified quadrant without penetration into peritoneal cavity, initial encounter S31.109A [facility] [address] 14967- 8374 Jun, Major depression F32.9 and Generalized anxiety disorder F41.1 [facility] [address] [id number] Jun, Dental examination Z01.20 [facility] [id number] [place] [address] 82306- 3943 May, [facility] [address] 09773- 3686 May, [facility] [id number] [place] [address] 31553- 1149 May, Callus of foot 700 ; Wound, open, foot 892.0 ; Wound, open, abdominal wall, anterior 879.2 and Misuse of prescription only drugs 305.90 [facility] [id number] [place] [address] 75876- 0014 May, [facility] [address] 86916- 0935 May, [facility] [id number] [place] [address] 27530- 4434 May, [facility] [address] [place] [address]- 9019 16 May, 2015 Skin infection 686.9 ; Cellulitis, leg 682.6 and Diabetes 250.00 [facility] [id number] [place] [address] 93240- 9418 16 May, 2015 [facility] [id number] [place] [address] 36317- 2948 May, [facility] [id number] [place] [address] 57736- 1131 May, [facility] [id number] [place] [address] 21864- 5363 May, Anxiety state, unspecified 300.00 and Major depression, recurrent 296.30 [facility] [id number] [place] [address] 04255- 3285 May, [facility] [id number] [place] [address] 58670- 6804 Apr, [facility] [id number] [place] [address] 49054- 5759 Apr, [facility] [id number] [place] [address] 64459- 3776 Apr, Diabetes with other specified manifestations, type II or unspecified type, not stated as uncontrolled 250.80 and Anxiety state, unspecified 300.00 [facility] [id number] [place] [address] 26445- 1987 Apr, [facility] [id number] [place] [address] 75398- 5942 Apr, [facility] [id number] [place] [address] 49849- 2056 Apr, [facility] [id number] [place] [address] 34021- 5834 Apr, [facility] [id number] [place] [address] 04573- 1325 Apr, Anxiety state, unspecified 300.00 ; Insomnia 780.52 ; Otitis media of left ear 382.9 and Upper respiratory infection 465.9 [facility] [address], [place] [address]- 5241 Apr, [facility] [address], [place] [address]- 7179 Apr, [facility] [address], [place] [address]- 8010 Apr, [facility] [address] [id number] Mar, Dental examination V72.2 [facility] [id number] [place] [address] 38409- 6484 Mar, [facility] [address], [place] [address]- 6928 Mar, [facility] [address] [address] Mar, Dental examination V72.2 [facility] [address], [place] [address]- 1365 Mar, [facility] [address], [place] [address]- 5841 Mar, [facility] [address], [place] [address]- 0244 Mar, [facility] [address], [place] [address]- 0222 Mar, [facility] [address], [place] [address]- 3639 Mar, [facility] [address], [place] [address]- 7046 Mar, Otitis media of left ear 382.9 ; Diabetes with other specified manifestations, type II or unspecified type, not stated as uncontrolled 250.80 ; Callus of foot 700 ; Oral lesion 528.9 and COPD (chronic obstructive pulmonary disease) 496 [facility] [id number], [place] [address]- 5822 Mar, [facility] [address], [place] [address]- 4974 Feb, [facility] [address], [place] [address]- 3016 Feb, [facility] [address], [place] [address]- 1006 Feb, [facility] [address] [facility] [id number], [place] [address]- 4238 Feb, [facility] [address], [place] [address]- 4740 Feb, [facility] [address], [place] [address]- 3028 Feb, [facility] [address], [place] [address]- 7713 Feb, [facility] [address], [place] [address]- 5593 Feb, [facility] [address], [place] [address]- 3917 Feb, [facility] [address], [place] [address]- 9292 Feb, [facility] [address], [place] [address]- 1461 Feb, [facility] [id number], [place] [address]- 5006 Feb, [facility] [address], [place] [address]- 4497 Feb, COPD (chronic obstructive pulmonary disease) 496 ; Hypoxia 799.02 ; Oral lesion 528.9 and Non compliance with medical treatment V15.81 [facility] [address], [place] [address]- 7966 Feb, [facility] [address], [place] [address]- 6156 Feb, [facility] [address] [address] Feb, Dental examination V72.2 [facility] [address] [address] Feb, Dental examination V72.2 [facility] [id number] [place] [address] 64417- 2996 January, [facility] [id number] [place] [address] 462575- 3378 January, Hypoxia 799.02 and COPD (chronic obstructive pulmonary disease) 496 [facility] [id number] [place] [address] 185552- 6174 January, COPD (chronic obstructive pulmonary disease) 496 ; Diabetes mellitus 250.00 ; Anxiety 300.00 ; Oral aphthae 528.2 ; GERD (gastroesophageal reflux disease) 530.81 and Depression 311 [facility] [id number] [place] [address] 41537- 4240 January, [facility] [id number] [place] [address] 26167- 3926 January, [facility] [id number] [place] [address] 86719- 9872 January, [facility] [address] [address]- 2850 January, [facility] [id number] [place] [address] 403778- 0133 January, Hypoxia 799.02 and COPD (chronic obstructive pulmonary disease) 496 [facility] [id number] [place] [address] 63961- 0076 January, [facility] [id number] [place] [address] 41771- 1459 January, [facility] [place] [facility] [address] [id number] [place] [address]- 2149 January, [facility] [place] [facility] [address] [id number] [place] [address]- 4064 Dec, [facility] [place] [facility] [address] [id number] [place] [address]- 4229 Dec, [facility] [place] [facility] [address] [id number] [place] [address]- 6572 30 Nov, 2014 [facility] [place] [facility] [address] [id number] [place] [address]- 7256 Nov, [facility] [place] [facility] [address] [id number] [place] [address]- 3710 Nov, [facility] [place] [facility] [address] [id number] [place] [address]- 2543 Nov, [facility] [place] [facility] [address] [id number] [place] [address]- 4705 Nov, [facility] [place] [facility] [address] [id number] [place] [address]- 8597 24 Nov, 2014 [facility] [place] [facility] [address] [id number] [place] [address]- 0532 24 Nov, 2014 [facility] [place] [facility] [address] [id number] [place] [address]- 5659 19 Nov, 2014 [facility] [place] [facility] [address] [id number] [place] [address]- 1911 19 Nov, 2014 [facility] [place] [facility] [address] [id number] [place] [address]- 4250 13 Nov, 2014 [facility] [place] [facility] [address] [id number] [place] [address]- 3491 13 Nov, 2014 [facility] [place] [facility] [address] [id number] [place] [address]- 8957 Nov, [facility] [place] [facility] [address] [id number] [place] [address]- 5818 13 Nov, 2014 [facility] [place] [facility] [address] [id number] [place] [address]- 6370 Nov, [facility] [place] [facility] [address] [id number] [place] [address]- 1447 Nov, [facility] [place] [facility] [address] [id number] [place] [address]- 4243 Nov, [facility] [place] [facility] [address] [id number] [place] [address]- 4052 Nov, [facility] [place] [facility] [address] [id number] [place] [address]- 2820 Nov, [facility] [place] [facility] [address] [id number] [place] [address]- 7957 Nov, [facility] [place] [facility] [address] [id number] [place] [address]- 6175 Nov, [facility] [place] [facility] [address] [id number] [place] [address]- 1000 Nov, [facility] [place] [facility] [address] [id number] [place] [address]- 3276 Nov, [facility] [place] [facility] [address] [id number] [place] [address]- 5106 Nov, [facility] [place] [facility] [address] [id number] [place] [address]- 2224 Nov, [facility] [place] [facility] [address] [id number] [place] [address]- 8680 Nov, [facility] [place] [facility] [address] [id number] [place] [address]- 9884 Nov, [facility] [place] [facility] [address] [id number] [place] [address]- 0218 Nov, [facility] [place] [facility] [address] [id number] [place] [address]- 0779 Oct, [facility] [place] [facility] [address] [id number] [place] [address]- 2286 Oct, 2014 [facility] [place] [facility] [address] [id number] [place] [address] 2546 Oct, 2014 [facility] [place] [facility] [address] [facility] [id number] [place] [address]- 2346 Oct, 2014 [facility] [place] [facility] [address] [facility] [id number] [place] [address]- 5492 13 Oct, 2014 [facility] [place] [facility] [address] [facility] [id number] [place] [address]- 9750 Oct, 2014 [facility] [place] [facility] [address] [facility] [id number] [place] [address]- 8564 Oct, 2014 [facility] [place] [facility] [address] [facility] [id number] [place] [address] Oct, 2014 [facility] [place] [facility] [address] [facility] [id number] [place] [address] Oct, 2014 [facility] [place] [facility] [address] [facility] [id number] [place] [address] Oct, 2014 [facility] [place] [facility] [address] [facility] [id number] [place] [address] Oct, 2014 [facility] [place] [facility] [address] [facility] [id number] [place] [address] Oct, 2014 [facility] [place] [facility] [address] [facility] [id number] [place] [address] Oct, 2014 [facility] [place] [facility] [address] [facility] [id number] [place] [address] Oct, 2014 [facility] [place] [facility] [address] [facility] [id number] [place] [address] 05 Oct, 2014 [facility] [place] [facility] [address] [facility] [id number] [place] [address] Oct2014 [facility] [place] [facility] [address] [id number] [place] [address] Oct, [facility] [place] [facility] [address] [id number] [place] [address] Sep, [facility] [place] [facility] [address] [id number] [place] [address] Sep, [facility] [place] [facility] [address] [id number] [place] [address] Sep, [facility] [place] [facility] [address] [id number] [place] [address] Sep, [facility] [place] [facility] [address] [id number] [place] [address] Sep, [facility] [place] [facility] [address] [id number] [place] [address] Sep, [facility] [place] [facility] [address] [id number] [place] [address] Sep, [facility] [place] [facility] [address] [id number] [place] [address] Sep, [facility] [place] [facility] [address] [id number] [place] [address] Sep, [facility] [place] [facility] [address] [id number] [place] [address]70 Sep, [facility] [place] [facility] [address] [id number] [place] [address] 1605 Sep, [facility] [place] [facility] [address] [id number] [place] [address] 6318 Sep, [facility] [place] [facility] [address] [id number] [place] [address]- 9577 Sep, [facility] [place] [facility] [address] [id number] [place] [address] 3938 Sep, [facility] [place] [facility] [address] [id number] [place] [address]- 7125 Sep, [facility] [place] [facility] [address] [id number] [place] [address] 0401 Aug, [facility] [place] [facility] [address] [id number] [place] [address] Aug, [facility] [place] [facility] [address] [id number] [place] [address]- 9846 Aug, [facility] [place] [facility] [address] [id number] [place] [address] 5634 Aug, [facility] [place] [facility] [address] [id number] [place] [address]- 5024 Aug, [facility] [place] [facility] [address] [id number] [place] [address]- 6980 Aug, [facility] [place] [facility] [address] [id number] [place] [address]- 9101 18 Aug, 2014 [facility] [place] [facility] [address] [id number] [place] [address]- 1261 Aug, [facility] [place] [facility] [address] [id number] [place] [address]- 2897 Aug, [facility] [place] [facility] [address] [id number] [place] [address]- 8331 Aug, [facility] [place] [facility] [address] [id number] [place] [address]- 3671 Aug, [facility] [place] [facility] [address] [id number] [place] [address]- 2706 10 Aug, 2014 [facility] [place] [facility] [address] [id number] [place] [address]- 9061 Aug, [facility] [place] [facility] [address] [id number] [place] [address]- 1484 Aug, [facility] [place] [facility] [address] [id number] [place] [address]- 3370 Aug, [facility] [place] [facility] [address] [id number] [place] [address]- 3316 Aug, [facility] [place] [facility] [address] [id number] [place] [address]- 1547 Aug, [facility] [place] [facility] [address] [id number] [place] [address]- 5823 Aug, [facility] [place] [facility] [address] [id number] [place] [address] Aug, [facility] [place] [facility] [address] [id number] [place] [address]- 0826 Aug, [facility] [place] [facility] [address] [id number] [place] [address]- 5790 Jul, [facility] [place] [facility] [address] [id number] [place] [address]- 3402 Jul, [facility] [place] [facility] [address] [id number] [place] [address]- 8167 Jul, [facility] [place] [facility] [address] [id number] [place] [address]- 9013 Jul, [facility] [place] [facility] [address] [id number] [place] [address]- 5462 Jul, [facility] [place] [facility] [address] [id number] [place] [address]- 6890 Jul, [facility] [place] [facility] [address] [id number] [place] [address]- 3646 Jul, [facility] [place] [facility] [address] [id number] [place] [address]- 7011 Jul, [facility] [place] [facility] [address] [id number] [place] [address]- 3126 Jul, [facility] [place] [facility] [address] [id number] [place] [address]- 2129 Jul, [facility] [place] [facility] [address] [id number] [place] [address]- 6772 Jul, [facility] [place] [facility] [address] [id number] [place] [address]- 1321 Jul, [facility] [place] [facility] [address] [id number] [place] [address]- 2366 Jul, [facility] [place] [facility] [address] [id number] [place] [address]- 2915 Jul, [facility] [place] [facility] [address] [id number] [place] [address]- 3056 Jul, [facility] [place] [facility] [address] [id number] [place] [address]- 4833 Jul, [facility] [place] [facility] [address] [id number] [place] [address]- 4285 Jul, [facility] [place] [facility] [address] [id number] [place] [address]- 1155 Jul, [facility] [place] [facility] [address] [id number] [place] [address]- 9201 Jun, [facility] [place] [facility] [address] [id number] [place] [address]- 8243 Jun, [facility] [place] [facility] [address] [id number], [place] [address]- 1681 Jun, [facility] [place] [facility] [address] [id number], [place] [address]- 3858 Jun, [facility] [place] [facility] [address] [id number], [place] [address]- 4005 Jun, [facility] [place] [facility] [address] [id number] [place] [address]- 4673 Jun, [facility] [place] [facility] [address] [id number] [place] [address]- 5400 Jun, [facility] [place] [facility] [address] [id number], [place] [address]- 6463 Jun, [facility] [place] [facility] [address] [id number], [place] [address]- 4098 Jun, [facility] [place] [facility] [address] [id number] [place] [address]- 9864 Jun, [facility] [place] [facility] [address] [id number] [place] [address]- 1058 Jun, [facility] [place] [facility] [address] [id number] [place] [address]- 5820 Jun, [facility] [place] [facility] [address] [id number] [place] [address]- 2969 Jun, [facility] [place] [facility] [address] [id number] [place] [address]- 9789 Jun, [facility] [place] [facility] [address] [id number] [place] [address]- 0055 Jun, [facility] [place] [facility] [address] [id number] [place] [address]- 6650 Jun, [facility] [place] [facility] [address] [id number] [place] [address]- 5835 Jun, [facility] [place] [facility] [address] [id number] [place] [address]- 3331 Jun, [facility] [place] [facility] [address] [facility] [id number] [place] [address]- 0239 19 May, 2014 [facility] [place] [facility] [address] [id number], [place] [address]- 9844 19 May, 2013 [facility] [place] [facility] [address] [id number], [place] [address]- 1404 18 May, 2013 [facility] [place] [facility] [address] [id number] [place] [address]- 8047 18 May, 2013 [facility] [place] [facility] [address] [id number] [place] [address]- 5261 15 May, 2013 [facility] [place] [facility] [address] [facility] [id number] [place] [address]- 2254 15 May, 2013 [facility] [place] [facility] [address] [id number] [place] [address]- 2971 11 Sep, 2013 [facility] [place] [facility] [address] [id number] [place] [address]- 7276 11 May, 2013 [facility] [place] [facility] [address] [id number] [place] [address]- 2546 11 May, 2013 [facility] [place] [facility] [address] [id number] [place] [address] 2546 11 May, 2013 [facility] [place] [facility] [address] [id number] [place] [address]- 2543 11 May, 2013 [facility] [place] [facility] [address] [id number] [place] [address]- 0156 11 May, 2013 [facility] [place] [facility] [address] [id number] [place] [address]- 8308 05 May, 2013 [facility] [place] [facility] [address] [id number] [place] [address]- 7773 05 May, 2013 [facility] [place] [facility] [address] [id number] [place] [address] 2547 04 May, 2013 [facility] [place] [facility] [address] [id number] [place] [address]- 2540 May, 2013 [facility] [place] [facility] [address] [id number] [place] [address]- 6333 May, 2013 [facility] [place] [facility] [address] [id number] [place] [address]- 2547 May, 2013 [facility] [place] [facility] [address] [id number] [place] [address]- 2545 Apr, [facility] [place] [facility] [address] [id number] [place] [address]- 5840 Apr, [facility] [place] [facility] [address] [id number] [place] [address]- 4402 Apr, [facility] [place] [facility] [address] [id number] [place] [address]- 8003 Apr, [facility] [place] [facility] [address] [id number] [place] [address]- 1202 Apr, [facility] [place] [facility] [address] [id number] [place] [address]- 3604 Apr, [facility] [place] [facility] [address] [id number] [place] [address]- 2024 Apr, [facility] [place] [facility] [address] [id number] [place] [address]- 9941 Apr, [facility] [place] [facility] [address] [id number] [place] [address]- 5190 Apr, [facility] [place] [facility] [address] [id number] [place] [address]- 6872 Apr, [facility] [place] [facility] [address] [id number] [place] [address]- 3381 Apr, [facility] [place] [facility] [address] [id number] [place] [address]- 5443 Apr, [facility] [place] [facility] [address] [id number] [place] [address]- 6434 Apr, [facility] [place] [facility] [address] [id number] [place] [address]- 2006 Apr, [facility] [place] [facility] [address] [id number] [place] [address]- 0536 Apr, [facility] [place] [facility] [address] [id number] [place] [address]- 3378 Apr, [facility] [place] [facility] [address] [id number] [place] [address]- 4905 Apr, [facility] [place] [facility] [address] [id number] [place] [address]- 4419 Apr, [facility] [place] [facility] [address] [id number] [place] [address]- 0981 Apr, [facility] [place] [facility] [address] [id number] [place] [address]- 8155 Apr, [facility] [place] [facility] [address] [id number] [place] [address]- 9374 Apr, [facility] [place] [facility] [address] [id number] [place] [address]- 9987 Apr, [facility] [place] [facility] [address] [id number] [place] [address]- 8496 Mar, [facility] [place] [facility] [address] [id number] [place] [address]- 7082 Mar, [facility] [place] [facility] [address] [id number] [place] [address]- 2111 Mar, [facility] [place] [facility] [address] [id number] [place] [address]- 1894 Mar, [facility] [place] [facility] [address] [id number] [place] [address]- 5922 Mar, [facility] [place] [facility] [address] [id number] [place] [address]- 2487 Mar, [facility] [place] [facility] [address] [id number] [place] [address]- 8270 Mar, [facility] [place] [facility] [address] [id number] [place] [address]- 6240 Mar, [facility] [place] [facility] [address] [id number] [place] [address]- 0459 Mar, [facility] [place] [facility] [address] [id number] [place] [address]- 8724 Mar, [facility] [place] [facility] [address] [id number] [place] [address]- 2647 Mar, [facility] [place] [facility] [address] [id number] [place] [address]- 1042 Mar, [facility] [place] [facility] [address] [id number] [place] [address]- 1834 Mar, [facility] [place] [facility] [address] [id number] [place] [address]- 8942 Mar, [facility] [place] [facility] [address] [id number] [place] [address]- 1842 Mar, [facility] [place] [facility] [address] [id number] [place] [address]- 9694 Mar, [facility] [place] [facility] [address] [id number] [place] [address]- 8297 Feb, [facility] [place] [facility] [address] [id number] [place] [address]- 6669 Feb, [facility] [place] [facility] [address] [id number] [place] [address]- 5364 Feb, [facility] [place] [facility] [address] [id number] [place] [address]- 2294 Feb, [facility] [place] [facility] [address] [id number] [place] [address]- 4240 Feb, [facility] [place] [facility] [address] [id number] [place] [address]- 8981 Feb, [facility] [place] [facility] [address] [id number] [place] [address]- 0310 Feb, [facility] [place] [facility] [address] [id number] [place] [address]- 4907 Feb, [facility] [place] [facility] [address] [id number] [place] [address]- 5967 January, [facility] [place] [facility] [address] [id number] [place] [address]- 7312 January, [facility] [place] [facility] [address] [id number] [place] [address]- 4446 January, [facility] [place] [facility] [address] [id number] [place] [address]- 9226 January, [facility] [place] [facility] [address] [id number] [place] [address]- 1936 January, [facility] [place] [facility] [address] [id number] [place] [address]- 5140 January, [facility] [place] [facility] [address] [id number] [place] [address]- 7452 January, [facility] [place] [facility] [address] [id number] [place] [address]- 7981 January, [facility] [place] [facility] [address] [id number] [place] [address]- 0002 January, [facility] [place] [facility] [address] [id number] [place] [address]- 3309 January, [facility] [place] [facility] [address] [id number] [place] [address]- 6360 Dec, [facility] [place] [facility] [address] [id number] [place] [address]- 4989 Dec, [facility] [place] [facility] [address] [id number] [place] [address]- 1046 Dec, [facility] [place] [facility] [address] [id number] [place] [address]- 3498 Dec, [facility] [place] [facility] [address] [id number] [place] [address]- 1426 Nov, [facility] [place] [facility] [address] [id number] [place] [address]- 1590 Nov, [facility] [place] [facility] [address] [id number] [place] [address]- 2278 Nov, [facility] [place] [facility] [address] [id number] [place] [address]- 1670 Nov, [facility] [place] [facility] [address] [id number] [place] [address]- 4240 Nov, [facility] [place] [facility] [address] [id number] [place] [address]- 8339 Nov, [facility] [place] [facility] [address] [id number] [place] [address]- 9750 Nov, [facility] [place] [facility] [address] [id number] [place] [address]- 2612 Nov, [facility] [place] [facility] [address] [id number] [place] [address]- 6319 Nov, [facility] [place] [facility] [address] [facility] [id number] [place] [address]- 5874 Nov, [facility] [place] [facility] [address] [id number] [place] [address]- 8349 Nov, [facility] [place] [facility] [address] [id number] [place] [address]- 7869 Oct, [facility] [place] [facility] [address] [facility] [id number] [place] [address]- 2707 Oct, [facility] [place] [facility] [address] [facility] [id number] [place] [address]- 4378 Oct, [facility] [place] [facility] [address] [id number] [place] [address]- 4807 Oct, [facility] [place] [facility] [address] [facility] [id number] [place] [address]- 0549 Oct, [facility] [place] [facility] [address] [facility] [id number] [place] [address]- 2709 Oct, [facility] [place] [facility] [address] [facility] [id number], [place] [address]- 9380 Oct, [facility] [place] [facility] [address] [facility] [id number] [place] [address]- 2519 Oct, [facility] [place] [facility] [address] [facility] [id number] [place] [id number] Oct, [facility] [place] [facility] [address] [facility] [id number] [place] [address]- 9776 Oct, [facility] [place] [facility] [address] [facility] [id number], [place] [address]- 7597 Oct, [facility] [place] [facility] [address] [id number] [place] [address]- 8066 Oct, [facility] [place] [facility] [address] [id number] [place] [address]- 2626 Oct, [facility] [place] [facility] [address] [id number] [place] [address]- 4436 Oct, [facility] [place] [facility] [address] [id number] [place] [address]- 8784 Oct, [facility] [place] [facility] [address] [id number] [place] [address]- 0796 Oct, [facility] [place] [facility] [address] [id number] [place] [address]- 8224 Oct, [facility] [place] [facility] [address] [id number] [place] [address]- 3368 Oct, [facility] [place] [facility] [address] [id number] [place] [address]- 2547 Oct, [facility] [place] [facility] [address] [id number] [place] [address]- 1744 Oct, [facility] [place] [facility] [address] [facility] [id number] [place] [address]- 2674 Oct, [facility] [place] [facility] [address] [id number] [place] [address]- 2546 Oct, [facility] [place] [facility] [address] [id number] [place] [address]- 2549 Sep, [facility] [place] [facility] [address] [id number] [place] [address]- 9633 Sep, [facility] [place] [facility] [address] [id number] [place] [address]- 2549 Sep, [facility] [place] [facility] [address] [id number] [place] [address]- 1915 Sep, [facility] [address] [id number] [place] [address]- 4479 Sep, [facility] [place] [facility] [address] [id number] [place] [address]- 3893 Sep, [facility] [place] [facility] [address] [id number] [place] [address] Sep, [facility] [place] [facility] [address] [id number] [place] [address] Sep, [facility] [place] [facility] [address] [id number] [place] [address] 17 Sep, 2013 [facility] [place] [facility] [address] [id number] [place] [address] Sep, [facility] [place] [facility] [address] [id number] [place] [address] Sep, [facility] [place] [facility] [address] [id number] [place] [address] Sep, [facility] [place] [facility] [address] [id number] [place] [address] Sep, [facility] [place] [facility] [address] [id number] [place] [address] Sep, [facility] [place] [facility] [address] [id number] [place] [address] Sep, [facility] [place] [facility] [address] [id number][place] [address] Sep, [facility] [place] [facility] [address] [id number] [place] [address] Sep, [facility] [place] [facility] [address] [id number] [place] [address] Sep, [facility] [place] [facility] [address] [id number] [place] [address] Aug, [facility] [place] [facility] [address] [id number], [place] [address] 30 Aug, 2013 [facility] [address] [id number] [place] [address] 30 Aug, 2013 [facility] [place] [facility] [address] [id number] [place] [address] 30 Aug, 2013 [facility] [address] [facility] [id number] [place] [address]- [address] 19 Aug, 2013 [facility] [place] [facility] [address] [id number] [place] [address]- [address] 19 Aug, 2013 [facility] [address] [id number] [place] [address] 18 Aug, 2013 [facility] [address] [id number] [place] [address]- 8[address] 18 Aug, 2013 [facility] [address] [facility] [id number] [place] [address]- 7964 18 Aug, 2013 [facility] [place] [facility] [address] [id number] [place] [address]- [address] 18 Aug, 2013 [facility] [address] [facility] [id number] [place] [address]- 8[address] 18 Aug, 2013 [facility] [place] [facility] [address] [facility] [id number] [place] [address]- 6[address] 18 Aug, 2013 [facility] [place] [facility] [address] [facility] [id number] [place] [address]- [address] 13 Aug, 2013 [facility] [place] [facility] [address] [id number] [place] [address]- [address] 13 Aug, 2013 [facility] [place] [facility] [address] [id number] [place] [address]- 44[address] 09 Aug, 2013 [facility] [place] [facility] [address] [facility] [id number] [place] [address]- [address] 06 Aug, 2013 [facility] [place] [facility] [address] [facility] [id number] [place] [address]- 3867 06 Aug, 2013 [facility] [place] [facility] [address] [id number] [place] [address] 136[address] Jul, [facility] [place] [facility] [address] [id number] [place] [address] 90[address] Jul, [facility] [place] [facility] [address] [id number] [place] [address]- 17[address] Jul, [facility] [place] [facility] [address] [id number] [place] [address] 22[address] Jul, [facility] [place] [facility] [address] [id number] [place] [address] Jul, [facility] [place] [facility] [address] [id number] [place] [address]- 49[address] Jul, [facility] [place] [facility] [address] [id number] [place] [address]- 07[address] Jul, [facility] [place] [facility] [address] [id number] [place] [address]- 2406 Jul, [facility] [place] [facility] [address] [id number] [place] [address]- [address] Jul, [facility] [place] [facility] [address] [id number] [place] [address]- 8780 Jul, [facility] [place] [facility] [address] [id number] [place] [address]- [address] Jun, [facility] [place] [facility] [address] [id number] [place] [address]- 5[address] Jun, [facility] [place] [facility] [address] [id number] [place] [address]- 7201 Jun, [facility] [place] [facility] [address] [id number] [place] [address]- 9311 Jun, [facility] [place] [facility] [address] [id number] [place] [address]- 5837 Jun, [facility] [place] [facility] [address] [id number] [place] [address]- 4749 Jun, [facility] [place] [facility] [address] [id number] [place] [address] Jun, [facility] [place] [facility] [address] [id number] [place] [address]- 6[address] Jun, [facility] [place] [facility] [address] [id number] [place] [address]- 0[address] Jun, [facility] [place] [facility] [address] [id number] [place] [address]- 4562 May, [facility] [place] [facility] [address] [id number] [place] [address]- 4632 May, [facility] [place] [facility] [address] [id number] [place] [address]- 0460 May, [facility] [place] [facility] [address] [id number] [place] [address]- 2232 May, [facility] [place] [facility] [address] [id number] [place] [address]- 5659 Apr, [facility] [place] [facility] [address] [id number] [place] [address]- 3684 Apr, [facility] [place] [facility] [address] [id number] [place] [address]- 7027 Mar, [facility] [place] [facility] [address] [id number], [place] [address] Mar, [facility] [place] [facility] [address] [id number], [place] [address]- [address] Feb, [facility] [place] [facility] [address] [id number] [place] [address]- [address] Feb, [facility] [place] [facility] [address] [id number] [place] [address]- 8[address] January, [facility] [place] [facility] [address] [id number] [place] [address]- 9448 January, [facility] [place] [facility] [address] [id number] [place] [address]- 5358 January, [facility] [address] [id number] [place] [address]- [address]751 30 Dec, 2012 [facility] [address] [id number] [place] [address]- 67[address] Dec, [facility] [address] [id number] [place] [address]- 0620 Dec, [facility] [address] [id number] [place] [address]- 7362 Dec, [facility] [address] [id number] [place] [address]- 8728 Dec, [facility] [address] [id number] [place] [address]- 1694 Dec, [facility] [address] [id number] [place] [address]- 0474 Dec, [facility] [address] [id number] [place] [address]- 2672 Nov, [facility] [address] [id number] [place] [address]- 6065 Nov, [facility] [address] [id number] [place] [address]- 4[address] 18 Nov, 2012 [facility] [address] [id number] [place] [address] 14 Nov, 2012 [facility] [address] [id number] [place] [address] Nov, [facility] [place] [facility] [address] [id number] [place] [address] Oct, [facility] [place] [facility] [address] [id number] [place] [address] Oct, [facility] [address] [id number] [place] [address] Oct, [facility] [place] [facility] [address] [id number] [place] [address] 75[address] Oct, [facility] [place] [facility] [address] [id number] [place] [address] Oct, [facility] [place] [facility] [address] [id number] [place] [address] 254 Oct, [facility] [place] [facility] [address] [id number] [place] [address] 2543 Oct, [facility] [place] [facility] [address] [id number] [place] [address] Oct, [facility] [place] [facility] [address] [id number] [place] [address] 15 Oct, 2012 [facility] [place] [facility] [address] [id number] [place] [address] 40[address] Oct, [facility] [place] [facility] [address] [id number] [place] [address] Oct, [facility] [place] [facility] [address] [id number] [place] [address] 1988 05 Oct, 2012 [facility] [place] [facility] [address] [id number] [place] [address] 29[address] Sep, [facility] [place] [facility] [address] [id number] [place] [address] Sep, [facility] [place] [facility] [address] [id number] [place] [address] 2543 Sep, [facility] [place] [facility] [address] [id number] [place] [address] 2545 Sep, [facility] [place] [facility] [address] [id number] [place] [address] 69[address] Sep, [facility] [place] [facility] [address] [id number] [place] [address] 25[address] Sep, [facility] [place] [facility] [address] [id number] [place] [address] 3[address] Sep, [facility] [address] [id number] [place] [address] 4[address] Sep, [facility] [address] [id number] [place] [address] 6[address] Aug, [facility] [address] [id number] [place] [address] 115[address] Aug, [facility] [address] [id number] [place] [address] 7[address] Aug, [facility] [address] [id number] [place] [address] 5200 Aug, [facility] [address] [id number] [place] [address] 78[address] Aug, [facility] [address] [id number] [place] [address] 3[address] Aug, [facility] [address] [id number] [place] [address] 267[address] Jul, [facility] [address] [id number] [place] [address] 4[address] Jul, [facility] [address] [id number] [place] [address] 45[address] Jul, [facility] [place] [facility] [address] [id number] [place] [address] 2544 Jul, [facility] [address] [id number] [place] [address] 2542 Jul, [facility] [place] [facility] [address] [id number] [place] [address] 3[address] Jul, [facility] [place] [facility] [address] [id number] [place] [address] 1974 Jul, [facility] [place] [facility] [address] [id number] [place] [address] 6[address] Jul, [facility] [place] [facility] [address] [id number] [place] [address] Jul, [facility] [place] [facility] [address] [id number] [place] [address] 6[address] Jul, [facility] [place] [facility] [address] [id number] [place] [address] 1627 Jul, [facility] [place] [facility] [address] [id number] [place] [address] 49[address] Jul, [facility] [place] [facility] [address] [id number] [place] [address] 00[address] Jul, [facility] [place] [facility] [address] [id number] [place] [address] 3697 Jul, [facility] [place] [facility] [address] [id number] [place] [address] Jun, [facility] [place] [facility] [address] [id number] [place] [address] 28 May, 2012 [facility] [place] [facility] [address] [id number] [place] [address] 17[address] 24 May, 2012 [facility] [place] [facility] [address] [id number] [place] [address]1 08 May, 2012 [facility] [place] [facility] [address] [id number] [place] [address] 0439 May, [facility] [place] [facility] [address] [id number] [address] Apr, [facility] [place] [facility] [address] [id number] [place] [address]- 4293 Apr, [facility] [place] [facility] [address] [id number] [place] [address] 8105 Apr, [facility] [place] [facility] [address] [id number], [place] [address] 38[address] Apr, [facility] [place] [facility] [address] [id number], [place] [address] Apr, [facility] [address] [id number] [place] [address]- 5[address] Apr, [facility] [place] [facility] [address] [id number] [place] [address]- 2470 Mar, [facility] [place] [facility] [address] [id number] [place] [address]- 0033 Mar, [facility] [place] [facility] [address] [id number] [place] [address] 9591 Feb, [facility] [place] [facility] [address] [id number] [place] [address] 8330 January, [facility] [place] [facility] [address] [id number] [place] [address]- 7385 January, [facility] [address] [id number] [place] [address]- 6279 January, [facility] [place] [facility] [address] [id number] [place] [address]- 8943 January, [facility] [place] [facility] [address] [id number] [place] [address]- 7458 Dec, [facility] [place] [facility] [address] [id number] [place] [address]- 2982 Dec, [facility] [place] [facility] [address] [id number] [place] [address]- 0605 29 Nov, 2011 [facility] [place] [facility] [address] [id number] [place] [address]- 1123 22 Nov, 2011 [facility] [place] [facility] [address] [id number] [place] [address]- 5360 21 Nov, 2011 [facility] [place] [facility] [address] [id number] [place] [address]- 2474 16 Nov, 2011 [facility] [place] [facility] [address] [id number] [place] [address]- 8216 14 Nov, 2011 [facility] [place] [facility] [address] [id number] [place] [address]- 9518 Nov, [facility] [address] [id number] [place] [address]- 4397 Oct, [facility] [place] [facility] [address] [id number] [place] [address]- 8286 Oct, [facility] [place] [facility] [address] [id number] [place] [address]- 2855 Oct, [facility] [place] [facility] [address] [id number] [place] [address]- 8081 Sep, [facility] [place] [facility] [address] [id number] [place] [address]- 6578 Sep, [facility] [place] [facility] [address] [id number] [place] [address]- 8377 Sep, [facility] [place] [facility] [address] [id number] [place] [address]- 1992 Sep, [facility] [place] [facility] [address] [id number] [place] [address]- 8572 Sep, [facility] [place] [facility] [address] [id number] [place] [address]- 8565 Aug, [facility] [place] [facility] [address] [id number] [place] [address]- 5[address] 14 Aug, 2011 [facility] [place] [facility] [address] [id number] [place] [address]- 9262 Aug, [facility] [place] [facility] [address] [id number] [place] [address]- 0794 06 Aug, 2011 [facility] [place] [facility] [address] [id number] [place] [address]- 3195 Jul, [facility] [place] [facility] [address] [id number] [place] [address]- 9383 10 Jul, 2011 [facility] [place] [facility] [address] [id number] [place] [address]- 0845 08 Jul, 2011 [facility] [place] [facility] [address] [id number] [place] [address]- 0397 Jul, [facility] [place] [facility] [address] [id number] [place] [address]- 1776 Jul, [facility] [place] [facility] [address] [id number] [place] [address]- 2746 10 Jun, 2011 [facility] [place] [facility] [address] [id number] [place] [address]- 7682 10 Jun, 2011 [facility] [place] [facility] [address] [id number] [place] [address]- 2385 16 May, 2011 [facility] [place] [facility] [address] [id number] [place] [address]- 8992 Apr, [facility] [place] [facility] [address] [id number] [place] [address]- 6272 Dec, [facility] [place] [facility] [address] [id number] [place] [address]- 1052 20 Aug, 2010 [facility] [place] [facility] [address] [id number] [place] [address]- 2139 14 Aug, 2010 [facility] [place] [facility] [address] [id number] [place] [address]- 3667 14 Aug, 2010 [facility] [place] [facility] [address] [id number] [place] [address]- 0776 22 Jun, 2010 [facility] [place] [facility] [address] [id number], [place] [address]- 1423 20 Jun, 2010 [facility] [place] [facility] [address] [id number] [place] [address]- 0174 15 Jun, 2010 [facility] [place] [facility] [address] [id number] [place] [address]- 1346 16 Aug, 2009 [facility] [place] [facility] [address] [id number] [place] [address]- 4606 11 Aug, 2009 [facility] [place] [facility] [address], [place] [address] Aug, [facility] [address], [place] [address]- 2546 Aug, [facility] [address], [place] [address]- 2546 Jul, [facility] [id number] [place] [address]- 2546 Jul, [facility] [address], [place] [address]- 2546 Jul, [facility] [id number] [place] [address]- 5456 Jul, [facility] [id number] [place] [address]- 2546 Jun, [facility] [id number] [place] [address]- 2546 Jun, [facility] [address], [place] [address]- 8675 Jun, [facility] [id number] [place] [address]- 1826 Jun, [facility] [address], [place] [address]- 7726 Jun, [facility] [address], [place] [address]- 2546 Jun, [facility] [address], [place] [address]- 2546 Jun, IMMUNIZATIONS No Known Immunizations SOCIAL HISTORY Never Assessed REASON FOR VISIT Chest congestion, cough, nasal drainage and stuffy. been sick for a week. [email or web address] PLAN OF CARE Activity Details Follow Up prn Reason: VITAL SIGNS Height 62 in 2017-02-23 Weight 242.8 lbs 2017-02-23 Temperature 97.8 degrees Fahrenheit 2017-02-23 Heart Rate 100 bpm 2017-02-23 Respiratory Rate 24 2017-02-23 Oximetry on 4l n/c:97 % 2017-02-23 BMI 44.40 kg/m2 2017-02-23 Blood pressure systolic 122 mmHg 2017-02-23 Blood pressure diastolic 76 mmHg 2017-02-23 MEDICATIONS Medication Instructions Dosage Frequency Start Date End Date Duration Status Fluvoxamine Maleate 100 MG Orally Twice a day 1 tablet 12h January, 30 day(s) Active Neurontin 600 MG Orally Three times a day 1 tablet 8h Aug, 30 days Active PredniSONE 20 MG Orally Once a day 3 tabs x 3 days, 2 tabs x 3 days, 1 tab x 3 days, then 1/2 tab x 4 days 24h Feb, Feb, 13 days Active Mirtazapine 15 MG Orally Once a day 1 tablet at bedtime 24h Nov, 30 days Active Ipratropium-Albuterol 0.5-2.5 (3) MG/3ML Inhalation Four times a day 3 ml 6h January, Active Daliresp 500 mcg take 1 tablet (500 mcg) by oral route once daily Jul, Active PredniSONE 10 MG Orally Once a day 1 tablet 24h Active Oxygen 2-3 L/NC nasal continuous as directed January, Active Loratadine 10 MG take 1 tablet by Oral route 1 time per day take at hs 24h Aug, Active Xanax 0.5 MG Orally Twice a day 1 tablet 12h Aug, 30 days Active HydrOXYzine HCl 50 MG Orally three times a day 1 tablet as needed 8h 30 days Active Lancets Active Doxycycline Monohydrate 100 MG Orally every 12 hrs 1 capsule 12h Feb, Feb, 10 days Active Symbicort 160-4.5 MCG/ACT Inhalation Twice a day 2 puffs 12h Apr, Active ProAir HFA 108 (90 Base) MCG/ACT INHALE 2 PUFFS BY MOUTH EVERY FOUR HOURS NEEDED FOR SHORTNESS OF BREATH OR COUGH 17 Active Tresiba FlexTouch 100 UNIT/ML Active Trulicity 0.75 MG/0.5ML 0.5 ml Active metformin 500 mg take 1 tablet 12h 30 Sep, 2014 Active Trazodone HCl 100 MG Orally Once a day 1 tablet at bedtime 24h Nov, 30 days Active Ibuprofen 800 MG TAKE 1 TABLET BY MOUTH THREE TIMES DAILY WITH FOOD MUST LAST 30 DAYS 30 Active Omeprazole 20 MG Orally Once a day 1 capsule 24h 30 Active Test strips Test Strips test blood sugar Active Nebulizer 1 as directed Feb, Active Jardiance 10 MG Orally Once a day 1 tablet 24h Active TRUEtest Test USE TO TEST BLOOD GLUCOSE ONCE DAILY 50 Active RESULTS Name Result Date Reference Range Xray : Chest (IN HOUSE) 2017-02-23 PROCEDURES Procedure Date Ordered Result Body Site NEBULIZER TREATMENT 2017-02-23 N/A MEASURE BLOOD OXYGEN LEVEL February 23, 2017 NEB/MDI RX INITIAL February 23, 2017 CHEST X-RAY February 23, 2017 INSTRUCTIONS MEDICATIONS ADMINISTERED No Known Medications [...]
[2018-01-08] MEDS ORDERED: KETOROLAC 30 MG/ML VIAL IVP STA (11:25)
[2018-01-08] MEDS ORDERED: ASPIRIN 81 MG CHEW (CHILDREN'S ASA) PO ONE (11:30)
--- OUTSIDE RECORDS SUMMARY | 2018-01-08 11:41 | XMS REPORT | Continuity of Care Document ---
Author Author [facility] Address Unknown Phone Unavailable Allergies Active Description Code Type Severity Reaction Onset Reported/Identified Relationship to Patient Clinical Status Yes Pyridium Drug Allergy 09/02/2010 Yes Pyridium Drug Allergy N/A N/A 09/02/2010 Yes codeine Drug Allergy N/A N/A 06/16/2013 Yes phenazopyridine [id number] Drug Allergy Mild ITCHING 03/27/2014 Yes codeine [id number] Drug Allergy Unknown N/A 03/27/2014 Yes No Known Drug Allergies [id number] Drug Allergy Unknown N/A 03/29/2016 Yes codeine [id number] Drug Allergy Moderate hives 05/14/2016 Medications There [...] DO, SHANNA K 788.1 Dysuria 08/07/2008 MARTÍNEZ MAYR APRN N 110.4 Dermatophytosis Tinea Pedis 08/07/2008 [...] LAURA BENNETT MD 788.1 Dysuria 08/07/2008 MADL SPRING TIER, DION L 110.4 Dermatophytosis Tinea Pedis 08/07/2008 MADL SPRING TIER, DION L 788.1 Dysuria 08/07/2008 LOCKETT DO, SHANNA K 110.4 Dermatophytosis Tinea Pedis 08/07/2008 LOCKETT DO, SHANNA K 788.1 Dysuria 08/07/2008 LOCKETT DO, SHANNA K 110.4 Dermatophytosis Tinea Pedis 08/07/2008 LOCKETT DO, SHANNA K 788.1 Dysuria 08/07/2008 MADL SPRING TIER, DION L 110.4 Dermatophytosis Tinea Pedis 08/07/2008 MADL SPRING TIER, DION L 788.1 Dysuria 08/07/2008 MADL SPRING TIER, DION L 110.4 Dermatophytosis Tinea Pedis 08/07/2008 MADL SPRING TIER, DION L 788.1 Dysuria 08/07/2008 MADL SPRING TIER, DION L 110.4 Dermatophytosis Tinea Pedis 08/07/2008 MADL SPRING TIER, DION L 788.1 Dysuria 08/07/2008 LOCKETT DO, SHANNA K 110.4 Dermatophytosis Tinea Pedis 08/07/2008 LOCKETT DO, SHANNA K 788.1 Dysuria 08/07/2008 MADL SPRING TIER, DION L 110.4 Dermatophytosis Tinea Pedis 08/07/2008 MADL SPRING TIER, DION L 788.1 Dysuria 08/07/2008 MADL SPRING TIER, DION L 110.4 Dermatophytosis Tinea Pedis 08/07/2008 MADL SPRING TIER, DION L 788.1 Dysuria 08/07/2008 MADL SPRING TIER, DION L 110.4 Dermatophytosis Tinea Pedis 08/07/2008 MADL SPRING TIER, DION L 788.1 Dysuria 08/07/2008 MADL SPRING TIER, DION L 110.4 Dermatophytosis Tinea Pedis 08/07/2008 MADL SPRING TIER, DION L 788.1 Dysuria 08/07/2008 MADL SPRING TIER, DION L 110.4 Dermatophytosis Tinea Pedis 08/07/2008 MADL SPRING TIER, DION L 788.1 Dysuria 08/07/2008 MADL SPRING TIER, DION L 110.4 Dermatophytosis Tinea Pedis 08/07/2008 MADL SPRING TIER, DION L 788.1 Dysuria 08/07/2008 MADL SPRING TIER, DION L 110.4 Dermatophytosis Tinea Pedis 08/07/2008 MADL SPRING TIER, DION L 788.1 Dysuria 08/07/2008 MADL SPRING TIER, DION L 110.4 Dermatophytosis Tinea Pedis 08/07/2008 MADL SPRING TIER, DION L 788.1 Dysuria 08/07/2008 MADL SPRING TIER, DION L 110.4 Dermatophytosis Tinea Pedis 08/07/2008 MADL SPRING TIER, DION L 788.1 Dysuria 08/07/2008 LOCKETT DO, SHANNA K 110.4 Dermatophytosis Tinea Pedis 08/07/2008 LOCKETT DO, SHANNA K 788.1 Dysuria 08/07/2008 CASTELLANO SPRING TIER, BARRY R 110.4 Dermatophytosis Tinea Pedis 08/07/2008 CASTELLANO SPRING TIER, BARRY R 788.1 Dysuria 08/07/2008 LOCKETT DO, [...] N 368.10 Visual Disturbance Unspecified 08/13/2008 ELIZABETH ROBIN MD N 780.79 Malaise And Fatigue 08/13/2008 [...] N 110.2 Dermatophytosis Of Hand 08/13/2008 JAYLENE PUDRY APRN, MARTÍNEZ N 368.10 Visual Disturbance Unspecified [...] MD 780.79 Malaise And Fatigue 08/13/2008 MADL SPRING TIER, DION L 110.2 Dermatophytosis Of Hand 08/13/2008 MADL SPRING TIER, DION L 368.10 Visual Disturbance Unspecified 08/13/2008 MADL SPRING TIER, DION L 780.79 Malaise And Fatigue 08/13/2008 LAURA BENNETT MD 110.2 Dermatophytosis Of Hand 08/13/2008 LAURA BENNETT MD 368.10 Visual Disturbance Unspecified 08/13/2008 LAURA BENNETT MD 780.79 Malaise And Fatigue 08/13/2008 MADL SPRING TIER, DION L 110.2 Dermatophytosis Of Hand 08/13/2008 MADL SPRING TIER, DION L 368.10 Visual Disturbance Unspecified 08/13/2008 MADL SPRING TIER, DION L 780.79 Malaise And Fatigue 08/13/2008 LOCKETT DO, SHANNA K 110.2 Dermatophytosis Of Hand 08/13/2008 LOCKETT DO, SHANNA K 368.10 Visual Disturbance Unspecified 08/13/2008 LOCKETT DO, SHANNA K 780.79 Malaise And Fatigue 08/13/2008 LOCKETT DO, SHANNA K 110.2 Dermatophytosis Of Hand 08/13/2008 LOCKETT DO, SHANNA K 368.10 Visual Disturbance Unspecified 08/13/2008 LOCKETT DO, SHANNA K 780.79 Malaise And Fatigue 08/13/2008 MADL SPRING TIER, DION L 110.2 Dermatophytosis Of Hand 08/13/2008 MADL SPRING TIER, DION L 368.10 Visual Disturbance Unspecified 08/13/2008 MADL SPRING TIER, DION L 780.79 Malaise And Fatigue 08/13/2008 MADL SPRING TIER, DION L 110.2 Dermatophytosis Of Hand 08/13/2008 MADL SPRING TIER, DION L 368.10 Visual Disturbance Unspecified 08/13/2008 MADL SPRING TIER, DION L 780.79 Malaise And Fatigue 08/13/2008 MADL SPRING TIER, DION L 110.2 Dermatophytosis Of Hand 08/13/2008 MADL SPRING TIER, DION L 368.10 Visual Disturbance Unspecified 08/13/2008 MADL SPRING TIER, DION L 780.79 Malaise And Fatigue 08/13/2008 LOCKETT DO, SHANNA K 110.2 Dermatophytosis Of Hand 08/13/2008 LOCKETT DO, SHANNA K 368.10 Visual Disturbance Unspecified 08/13/2008 LOCKETT DO, SHANNA K 780.79 Malaise And Fatigue 08/13/2008 MADL SPRING TIER, DION L 110.2 Dermatophytosis Of Hand 08/13/2008 MADL SPRING TIER, DION L 368.10 Visual Disturbance Unspecified 08/13/2008 MADL SPRING TIER, DION L 780.79 Malaise And Fatigue 08/13/2008 MADL SPRING TIER, DION L 110.2 Dermatophytosis Of Hand 08/13/2008 MADL SPRING TIER, DION L 368.10 Visual Disturbance Unspecified 08/13/2008 MADL SPRING TIER, DION L 780.79 Malaise And Fatigue 08/13/2008 MADL SPRING TIER, DION L 110.2 Dermatophytosis Of Hand 08/13/2008 MADL SPRING TIER, DION L 368.10 Visual Disturbance Unspecified 08/13/2008 MADL SPRING TIER, DION L 780.79 Malaise And Fatigue 08/13/2008 MADL SPRING TIER, DION L 110.2 Dermatophytosis Of Hand 08/13/2008 MADL SPRING TIER, DION L 368.10 Visual Disturbance Unspecified 08/13/2008 MADL SPRING TIER, DION L 780.79 Malaise And Fatigue 08/13/2008 MADL SPRING TIER, DION L 110.2 Dermatophytosis Of Hand 08/13/2008 MADL SPRING TIER, DION L 368.10 Visual Disturbance Unspecified 08/13/2008 MADL SPRING TIER, DION L 780.79 Malaise And Fatigue 08/13/2008 MADL SPRING TIER, DION L 110.2 Dermatophytosis Of Hand 08/13/2008 MADL SPRING TIER, DION L 368.10 Visual Disturbance Unspecified 08/13/2008 MADL SPRING TIER, DION L 780.79 Malaise And Fatigue 08/13/2008 MADL SPRING TIER, DION L 110.2 Dermatophytosis Of Hand 08/13/2008 MADL SPRING TIER, DION L 368.10 Visual Disturbance Unspecified 08/13/2008 MADL SPRING TIER, DION L 780.79 Malaise And Fatigue 08/13/2008 MADL SPRING TIER, DION L 110.2 Dermatophytosis Of Hand 08/13/2008 MADL SPRING TIER, DION L 368.10 Visual Disturbance Unspecified 08/13/2008 MADL SPRING TIER, DION L 780.79 Malaise And Fatigue 08/13/2008 MADL SPRING TIER, DION L 110.2 Dermatophytosis Of Hand 08/13/2008 MADL SPRING TIER, DION L 368.10 Visual Disturbance Unspecified 08/13/2008 MADL SPRING TIER, DION L 780.79 Malaise And Fatigue 08/13/2008 LOCKETT DO, SHANNA K 110.2 Dermatophytosis Of Hand 08/13/2008 LOCKETT DO, SHANNA K 368.10 Visual Disturbance Unspecified 08/13/2008 LOCKETT DO, SHANNA K 780.79 Malaise And Fatigue 08/13/2008 JACKELINE CASTELLANO APRNRICIA R 110.2 Dermatophytosis Of Hand 08/13/2008 CASTELLANO SPRING TIER, BARRY R 368.10 Visual Disturbance Unspecified 08/13/2008 [...] BINDU PALM MD 786.2 Cough 01/24/2009 SHELBI SPRING TIER, CARLINE S 466.0 Acute Bronchitis 01/24/2009 SHELBI SPRING TIER, CARLINE S 786.2 Cough 01/24/2009 SHELBI SPRING TIER, CARLINE S 466.0 Acute Bronchitis 01/24/2009 SHELBI SPRING TIER, CARLINE S 786.2 Cough 01/24/2009 LAURA BENNETT MD 466.0 Acute Bronchitis 01/24/2009 LAURA BENNETT MD 786.2 Cough 01/24/2009 LOBITO MOREIRA, ELIZABETH N 466.0 Acute Bronchitis 01/24/2009 LOBITO MOREIRA, ELIZABETH N 786.2 Cough 01/24/2009 LAURA BENNETT MD 466.0 Acute Bronchitis 01/24/2009 LAURA BENNETT MD 786.2 Cough 01/24/2009 LOCKETT DO, SHANNA K 466.0 Acute Bronchitis 01/24/2009 LOCKETT DO, SHANNA K 786.2 Cough 01/24/2009 MARIEE CASHERO SPRING TIER, MARTÍNEZ N 466.0 Acute Bronchitis 01/24/2009 MARIEE CASHERO SPRING TIER, MARTÍNEZ N 786.2 Cough 01/24/2009 NÉSTOR MOREIRA, BINDU M 466.0 Acute Bronchitis 01/24/2009 BINDU PALM MD M 786.2 Cough 01/24/2009 MARIEE CASHERO SPRING TIER, MARTÍNEZ N 466.0 Acute Bronchitis 01/24/2009 MARIEE CASHERO SPRING TIER, MARTÍNEZ N 786.2 Cough 01/24/2009 JJ SPRING TIER, ANNEL FRANCES 466.0 Acute Bronchitis 01/24/2009 JJ SPRING TIER, ANNEL FRANCES 786.2 Cough 01/24/2009 LAURA BENNETT MD 466.0 Acute Bronchitis 01/24/2009 LAURA BENNETT MD 786.2 Cough 01/24/2009 MADL SPRING TIER, DION L 466.0 Acute Bronchitis 01/24/2009 MADL SPRING TIER, DION L 786.2 Cough 01/24/2009 LAURA BENNETT MD 466.0 Acute Bronchitis 01/24/2009 LAURA BENNETT MD 786.2 Cough 01/24/2009 MADL SPRING TIER, DION L 466.0 Acute Bronchitis 01/24/2009 MADL SPRING TIER, DION L 786.2 Cough 01/24/2009 LOCKETT DO, SHANNA K 466.0 Acute Bronchitis 01/24/2009 LOCKETT DO, SHANNA K 786.2 Cough 01/24/2009 LOCKETT DO, SHANNA K 466.0 Acute Bronchitis 01/24/2009 LOCKETT DO, SHANNA K 786.2 Cough 01/24/2009 MADL SPRING TIER, DION L 466.0 Acute Bronchitis 01/24/2009 MADL SPRING TIER, DION L 786.2 Cough 01/24/2009 MADL SPRING TIER, DION L 466.0 Acute Bronchitis 01/24/2009 MADL SPRING TIER, DION L 786.2 Cough 01/24/2009 MADL SPRING TIER, DION L 466.0 Acute Bronchitis 01/24/2009 MADL SPRING TIER, DION L 786.2 Cough 01/24/2009 LOCKETT DO, SHANNA K 466.0 Acute Bronchitis 01/24/2009 LOCKETT DO, SHANNA K 786.2 Cough 01/24/2009 MADL SPRING TIER, DION L 466.0 Acute Bronchitis 01/24/2009 MADL SPRING TIER, DION L 786.2 Cough 01/24/2009 MADL SPRING TIER, DION L 466.0 Acute Bronchitis 01/24/2009 MADL SPRING TIER, DION L 786.2 Cough 01/24/2009 MADL SPRING TIER, DION L 466.0 Acute Bronchitis 01/24/2009 MADL SPRING TIER, DION L 786.2 Cough 01/24/2009 MADL SPRING TIER, DION L 466.0 Acute Bronchitis 01/24/2009 MADL SPRING TIER, DION L 786.2 Cough 01/24/2009 MADL SPRING TIER, IDON L 466.0 Acute Bronchitis 01/24/2009 MADL SPRING TIER, DION L 786.2 Cough 01/24/2009 MADL SPRING TIER, DION L 466.0 Acute Bronchitis 01/24/2009 MADL SPRING TIER, DION L 786.2 Cough 01/24/2009 MADL SPRING TIER, DION L 466.0 Acute Bronchitis 01/24/2009 MADL SPRING TIER, DION L 786.2 Cough 01/24/2009 MADL SPRING TIER, DION L 466.0 Acute Bronchitis 01/24/2009 MADL SPRING TIER, DION L 786.2 Cough 01/24/2009 MADL SPRING TIER, DION L 466.0 Acute Bronchitis 01/24/2009 MADL SPRING TIER, DION L 786.2 Cough 01/24/2009 LOCKETT DO, SHANNA K 466.0 Acute Bronchitis 01/24/2009 LOCKETT DO, SHANNA K 786.2 Cough 01/24/2009 RENO CASTELLANO APRNIA R 466.0 Acute Bronchitis 01/24/2009 CASTELLANO SPRING TIER, BARRY R 786.2 Cough 01/24/2009 SHANNA LOCKETT [...] MD 054.10 HERPES SIMPLEX TYPE II 05/17/2009 ELIZABETH ROBIN MD 799.02 HYPOXIA 05/17/2009 LAURA BENNETT [...] 054.10 HERPES SIMPLEX TYPE II 05/17/2009 MAD SPRING TIER, DION L 799.02 HYPOXIA 05/17/2009 LAURA BENNETT MD 054.10 HERPES SIMPLEX TYPE II 05/17/2009 LAURA BENNETT MD 799.02 HYPOXIA 05/17/2009 MAD KATEY, DION L 054.10 HERPES SIMPLEX TYPE II 05/17/2009 [facility] KATEY, DION L 799.02 HYPOXIA 05/17/2009 LOCKETT DO SHANNA K 054.10 HERPES SIMPLEX TYPE II 05/17/2009 LOCKETT DO, SHANNA K 799.02 HYPOXIA 05/17/2009 LOCKETT DO, SHANNA K 054.10 HERPES SIMPLEX TYPE II 05/17/2009 LOCKETT DO, SHANNA K 799.02 HYPOXIA 05/17/2009 MAD SPRING TIER, DION L 054.10 HERPES SIMPLEX TYPE II 05/17/2009 MAD SPRING TIER, DION L 799.02 HYPOXIA 05/17/2009 MAD SPRING TIER, DION L 054.10 HERPES SIMPLEX TYPE II 05/17/2009 MAD SPRING TIER, DION L 799.02 HYPOXIA 05/17/2009 MAD SPRING TIER, DION L 054.10 HERPES SIMPLEX TYPE II 05/17/2009 MADL SPRING TIER, DION L 799.02 HYPOXIA 05/17/2009 LOCKETT DO SHANNA K 054.10 HERPES SIMPLEX TYPE II 05/17/2009 LOCKETT DO, SHANNA K 799.02 HYPOXIA 05/17/2009 MAD SPRING TIER, DION L 054.10 HERPES SIMPLEX TYPE II 05/17/2009 MAD SPRING TIER, DION L 799.02 HYPOXIA 05/17/2009 MADL SPRING TIER, DION L 054.10 HERPES SIMPLEX TYPE II 05/17/2009 MAD SPRING TIER, DION L 799.02 HYPOXIA 05/17/2009 MADL SPRING TIER, DION L 054.10 HERPES SIMPLEX TYPE II 05/17/2009 MAD SPRING TIER, DION L 799.02 HYPOXIA 05/17/2009 MAD SPRING TIER, DION L 054.10 HERPES SIMPLEX TYPE II 05/17/2009 MAD SPRING TIER, DION L 799.02 HYPOXIA 05/17/2009 MAD SPRING TIER, DION L 054.10 HERPES SIMPLEX TYPE II 05/17/2009 MAD SPRING TIER, DION L 799.02 HYPOXIA 05/17/2009 MAD SPRING TIER, DION L 054.10 HERPES SIMPLEX TYPE II 05/17/2009 [facility] SPRING TIER, DION L 799.02 HYPOXIA 05/17/2009 [facility] SPRING TIER, DION L 054.10 HERPES SIMPLEX TYPE II 05/17/2009 [facility] SPRING TIER, DION L 799.02 HYPOXIA 05/17/2009 MAD SPRING TIER, DION L 054.10 HERPES SIMPLEX TYPE II 05/17/2009 MAD SPRING TIER, DION L 799.02 HYPOXIA 05/17/2009 MAD SPRING TIER, DION L 054.10 HERPES SIMPLEX TYPE II 05/17/2009 MAD SPRING TIER, DION L 799.02 HYPOXIA 05/17/2009 GARNT LOCKETT DOA K 054.10 HERPES SIMPLEX TYPE [...] , CHILDBIRTH, OR THE PUERPERIUM 07/02/2009 MADL SPRING TIER, DION L 649.0 TOBACCO USE DISORDER COMPLICATING , CHILDBIRTH, OR THE PUERPERIUM 07/02/2009 MADL SPRING TIER, DION L 649.0 TOBACCO USE DISORDER COMPLICATING , CHILDBIRTH, OR THE PUERPERIUM 07/02/2009 MADL SPRING TIER, DION L 649.0 TOBACCO USE DISORDER COMPLICATING , CHILDBIRTH, OR THE PUERPERIUM 07/02/2009 SHANNA LOCKETT DO K 649.0 TOBACCO USE DISORDER COMPLICATING , CHILDBIRTH, OR THE PUERPERIUM 07/02/2009 MADL SPRING TIER, DION L 649.0 TOBACCO USE DISORDER COMPLICATING , CHILDBIRTH, OR THE PUERPERIUM 07/02/2009 MADL SPRING TIER, DION L 649.0 TOBACCO USE DISORDER COMPLICATING , CHILDBIRTH, OR THE PUERPERIUM 07/02/2009 MADL SPRING TIER, DION L 649.0 TOBACCO USE DISORDER COMPLICATING , CHILDBIRTH, OR THE PUERPERIUM 07/02/2009 MADL SPRING TIER, DION L 649.0 TOBACCO USE DISORDER COMPLICATING , CHILDBIRTH, OR THE PUERPERIUM 07/02/2009 MADL SPRING TIER, DION L 649.0 TOBACCO USE DISORDER COMPLICATING , CHILDBIRTH, OR THE PUERPERIUM 07/02/2009 MADL SPRING TIER, DION L 649.0 TOBACCO USE DISORDER COMPLICATING , CHILDBIRTH, OR THE PUERPERIUM 07/02/2009 MADL SPRING TIER, DION L 649.0 TOBACCO USE DISORDER COMPLICATING , CHILDBIRTH, OR THE PUERPERIUM 07/02/2009 MADL SPRING TIER, DION L 649.0 TOBACCO USE DISORDER COMPLICATING , CHILDBIRTH, OR THE PUERPERIUM 07/02/2009 MADL SPRING TIER, DION L 649.0 TOBACCO USE DISORDER COMPLICATING [...] MD 305.1 NICOTINE DEPENDENCE 07/09/2009 MARIEE RAJWINDER SPRING TIER, MARTÍNEZ N 305.1 NICOTINE DEPENDENCE 07/09/2009 ANNEL JJ APRN 305.1 NICOTINE DEPENDENCE 07/09/2009 LAURA BENNETT MD 305.1 NICOTINE DEPENDENCE 07/09/2009 MADL SPRING TIER, DION L 305.1 NICOTINE DEPENDENCE 07/09/2009 LAURA BENNETT MD 305.1 NICOTINE DEPENDENCE 07/09/2009 MADL SPRING TIER, DION L 305.1 NICOTINE DEPENDENCE 07/09/2009 LOCKETT DO, SHANNA K 305.1 NICOTINE DEPENDENCE 07/09/2009 LOCKETT DO, SHANNA K 305.1 NICOTINE DEPENDENCE 07/09/2009 MADL SPRING TIER, DION L 305.1 NICOTINE DEPENDENCE 07/09/2009 MADL SPRING TIER, DION L 305.1 NICOTINE DEPENDENCE 07/09/2009 MADL SPRING TIER, DION L 305.1 NICOTINE DEPENDENCE 07/09/2009 LOCKETT DO, SHANNA K 305.1 NICOTINE DEPENDENCE 07/09/2009 MADL SPRING TIER, DION L 305.1 NICOTINE DEPENDENCE 07/09/2009 MADL SPRING TIER, DION L 305.1 NICOTINE DEPENDENCE 07/09/2009 MADL SPRING TIER, DION L 305.1 NICOTINE DEPENDENCE 07/09/2009 MADL SPRING TIER, DION L 305.1 NICOTINE DEPENDENCE 07/09/2009 MADL SPRING TIER, DION L 305.1 NICOTINE DEPENDENCE 07/09/2009 MADL SPRING TIER, DION L 305.1 NICOTINE DEPENDENCE 07/09/2009 MADL SPRING TIER, DION L 305.1 NICOTINE DEPENDENCE 07/09/2009 MADL SPRING TIER, DION L 305.1 NICOTINE DEPENDENCE 07/09/2009 MADL SPRING TIER, DION L 305.1 NICOTINE DEPENDENCE 07/09/2009 LOCKETT [...] MD CHRONIC OBSTRUCTIVE PULMONARY DISEASE 07/16/2009 MADL SPRING TIER, DION L 496 CHRONIC OBSTRUCTIVE PULMONARY DISEASE 07/16/2009 LOCKETT DO, SHANNA K 496 CHRONIC OBSTRUCTIVE PULMONARY DISEASE 07/16/2009 LOCKETT DO, SHANNA K 496 CHRONIC OBSTRUCTIVE PULMONARY DISEASE 07/16/2009 MADL SPRING TIER, DION L 496 CHRONIC OBSTRUCTIVE PULMONARY DISEASE 07/16/2009 MADL SPRING TIER, DION L 496 CHRONIC OBSTRUCTIVE PULMONARY DISEASE 07/16/2009 MADL SPRING TIER, DION L 496 CHRONIC OBSTRUCTIVE PULMONARY DISEASE 07/16/2009 LOCKETT DO, SHANNA K 496 CHRONIC OBSTRUCTIVE PULMONARY DISEASE 07/16/2009 MADL SPRING TIER, DION L 496 CHRONIC OBSTRUCTIVE PULMONARY DISEASE 07/16/2009 MADL SPRING TIER, DION L 496 CHRONIC OBSTRUCTIVE PULMONARY DISEASE 07/16/2009 MADL SPRING TIER, DION L 496 CHRONIC OBSTRUCTIVE PULMONARY DISEASE 07/16/2009 MADL SPRING TIER, DION L 496 CHRONIC OBSTRUCTIVE PULMONARY DISEASE 07/16/2009 MADL SPRING TIER, DION L 496 CHRONIC OBSTRUCTIVE PULMONARY DISEASE 07/16/2009 MADL SPRING TIER, DION L 496 CHRONIC OBSTRUCTIVE PULMONARY DISEASE 07/16/2009 MADL SPRING TIER, DION L 496 CHRONIC OBSTRUCTIVE PULMONARY DISEASE 07/16/2009 MADL SPRING TIER, DION L 496 CHRONIC OBSTRUCTIVE PULMONARY DISEASE 07/16/2009 MADL SPRING TIER, DION L 496 CHRONIC OBSTRUCTIVE PULMONARY DISEASE [...] TORO, DION L 682.9 Cellulitis 02/24/2010 MADL SPRING TIER, DION L 682.9 Cellulitis 02/24/2010 MADL SPRING TIER, DION L 682.9 Cellulitis 02/24/2010 LOCKETT DO, SHANNA K 682.9 Cellulitis 02/24/2010 MADL SPRING TIER, DION L 682.9 Cellulitis 02/24/2010 MADL SPRING TIER, DION L 682.9 Cellulitis 02/24/2010 MADL SPRING TIER, DION L 682.9 Cellulitis 02/24/2010 MADL SPRING TIER, DION L 682.9 Cellulitis 02/24/2010 MADL SPRING TIER, DION L 682.9 Cellulitis 02/24/2010 MADL SPRING TIER, DION L 682.9 Cellulitis 02/24/2010 MADL SPRING TIER, DION L 682.9 Cellulitis 02/24/2010 MADL SPRING TIER, DION L 682.9 Cellulitis 02/24/2010 MADL SPRING TIER, DION L 682.9 Cellulitis 02/24/2010 LOCKETT DO, SHANNA K 682.9 Cellulitis 02/24/2010 CASTELLANO SPRING TIER, BARRY R 682.9 Cellulitis 02/24/2010 LOCKETT DO, SHANNA K 682.9 Cellulitis 03/11/2010 V72.31 Pelvic Exam [...] Screening Exam Bact/spirochetal Venereal Disease 03/11/2010 SHELBI SPRING TIER, CARLINE S V72.31 Pelvic Exam (internal) 03/11/2010 SHELBI SPRING TIER, CARLINE S V74.5 Visit For: Screening Exam Bact/spirochetal Venereal Disease 03/11/2010 SHELBI SPRING TIER, CARLINE S V72.31 Pelvic Exam (internal) 03/11/2010 SHELBI SPRING TIER, CARLINE S V74.5 Visit For: Screening Exam [...] Exam Bact/spirochetal Venereal Disease 03/11/2010 JAYLENE PURDY SPRING TIER, MARTÍNEZ N V72.31 Pelvic Exam (internal) 03/11/2010 MARIEE GRISELDAERO SPRING TIER, MARTÍNEZ N V74.5 Visit For: Screening Exam Bact/spirochetal Venereal Disease 03/11/2010 BINDU PALM MD V72.31 Pelvic Exam (internal) 03/11/2010 BINDU PALM MD V74.5 Visit For: Screening Exam Bact/spirochetal Venereal Disease 03/11/2010 MARIEE RAJWINDER SPRING TIER, MARTÍNEZ N V72.31 Pelvic Exam (internal) 03/11/2010 JAYLENE VILLALOBOSERO SPRING TIER, MARTÍNEZ N V74.5 Visit For: Screening Exam [...] Screening Exam Bact/spirochetal Venereal Disease 03/11/2010 MADL SPRING TIER, DION L V72.31 Pelvic Exam (internal) 03/11/2010 MADL SPRING TIER, DION L V74.5 Visit For: Screening Exam Bact/spirochetal Venereal Disease 03/11/2010 MADL SPRING TIER, DION L V72.31 Pelvic Exam (internal) 03/11/2010 MADL SPRING TIER, DION L V74.5 Visit For: Screening Exam Bact/spirochetal Venereal Disease 03/11/2010 MADL SPRING TIER, DION L V72.31 Pelvic Exam (internal) 03/11/2010 MADL SPRING TIER, DION L V74.5 Visit For: Screening Exam Bact/spirochetal Venereal Disease 03/11/2010 LOCKETT DO SHANNA K V72.31 Pelvic Exam (internal) 03/11/2010 LEVY CARRANZA SHANNA K V74.5 Visit For: Screening Exam Bact/spirochetal Venereal Disease 03/11/2010 MADL SPRING TIER, DION L V72.31 Pelvic Exam (internal) 03/11/2010 MADL SPRING TIER, DION L V74.5 Visit For: Screening Exam Bact/spirochetal Venereal Disease 03/11/2010 MADL SPRING TIER, DION L V72.31 Pelvic Exam (internal) 03/11/2010 MADL SPRING TIER, DION L V74.5 Visit For: Screening Exam Bact/spirochetal Venereal Disease 03/11/2010 MADL SPRING TIER, DION L V72.31 Pelvic Exam (internal) 03/11/2010 MADL SPRING TIER, DION L V74.5 Visit For: Screening Exam Bact/spirochetal Venereal Disease 03/11/2010 MADL SPRING TIER, DION L V72.31 Pelvic Exam (internal) 03/11/2010 MADL SPRING TIER, DION L V74.5 Visit For: Screening Exam Bact/spirochetal Venereal Disease 03/11/2010 MADL SPRING TIER, DION L V72.31 Pelvic Exam (internal) 03/11/2010 MADL SPRING TIER, DION L V74.5 Visit For: Screening Exam Bact/spirochetal Venereal Disease 03/11/2010 MADL SPRING TIER, DION L V72.31 Pelvic Exam (internal) 03/11/2010 MADL SPRING TIER, DION L V74.5 Visit For: Screening Exam Bact/spirochetal Venereal Disease 03/11/2010 MADL SPRING TIER, DION L V72.31 Pelvic Exam (internal) 03/11/2010 MADL SPRING TIER, DION L V74.5 Visit For: Screening Exam Bact/spirochetal Venereal Disease 03/11/2010 MADL SPRING TIER, DION L V72.31 Pelvic Exam (internal) 03/11/2010 MADL SPRING TIER, DION L V74.5 Visit For: Screening Exam Bact/spirochetal Venereal Disease 03/11/2010 MADL SPRING TIER, DION L V72.31 Pelvic Exam (internal) 03/11/2010 MADL SPRING TIER, DION L V74.5 Visit For: Screening Exam [...] DO, SHANNA K 278.00 OBESITY 03/28/2010 MADL SPRING TIER, DION L 278.00 OBESITY 03/28/2010 MADL SPRING TIER, DION L 278.00 OBESITY 03/28/2010 MADL SPRING TIER, DION L 278.00 OBESITY 03/28/2010 LOCKETT DO SHANNA K 278.00 OBESITY 03/28/2010 MADL SPRING TIER, DION L 278.00 OBESITY 03/28/2010 MADL SPRING TIER, DION L 278.00 OBESITY 03/28/2010 MADL SPRING TIER, DION L 278.00 OBESITY 03/28/2010 MADL SPRING TIER, DION L 278.00 OBESITY 03/28/2010 MADL SPRING TIER, DION L 278.00 OBESITY 03/28/2010 MADL SPRING TIER, DION L 278.00 OBESITY 03/28/2010 MADL SPRING TIER, DION L 278.00 OBESITY 03/28/2010 MADL SPRING TIER, DION L 278.00 OBESITY 03/28/2010 MADL SPRING TIER, DION L 278.00 OBESITY 03/28/2010 LEVY DO SHANNA K 278.00 OBESITY 03/28/2010 CASTELLANO SPRING TIER, BARRY R 278.00 OBESITY 03/28/2010 GRANT LOCKETT [...] MD 296.32 MO DEPRESSIVE RECURRENT MODERATE 07/04/2010 BNIDU PALM MD 300.02 AN GEN ANXIETY 07/04/2010 [...] SA AMPHETA ABUSE 07/04/2010 NÉSTOR MOREIRA, BINDU Hidalgo 296.32 MO DEPRESSIVE RECURRENT MODERATE 07/04/2010 BINDU PALM MD 300.02 AN GEN ANXIETY 07/04/2010 BINDU PALM MD 301.9 PD PERS DIS NOS 07/04/2010 BINDU PALM MD 303.90 SA ALCOHOLISM UNSPECI 07/04/2010 BINDU PALM MD 305.20 SA CANNABIS ABUSE 07/04/2010 BINDU PALM MD 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 07/04/2010 SHELBI SPRING TIER, CARLINE S 296.32 MO DEPRESSIVE RECURRENT MODERATE 07/04/2010 SHELBI SPRING TIER, CARLINE S 300.02 AN GEN ANXIETY 07/04/2010 SHELBI SPRING TIER, CARLINE S 301.9 PD PERS DIS NOS 07/04/2010 SHELBI SPRING TIER, CARLINE S 303.90 SA ALCOHOLISM UNSPECI 07/04/2010 SHELBI SPRING TIER, CARLINE S 305.20 SA CANNABIS ABUSE 07/04/2010 SHELBI SPRING TIER, CARLINE S 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 07/04/2010 SHELBI SPRING TIER, CARLINE S 296.32 MO DEPRESSIVE RECURRENT MODERATE 07/04/2010 SHELBI SPRING TIER, CARLINE S 300.02 AN GEN ANXIETY 07/04/2010 SHELBI SPRING TIER, CARLINE S 301.9 PD PERS DIS NOS 07/04/2010 SHELBI SPRING TIER, CARLINE S 303.90 SA ALCOHOLISM UNSPECI 07/04/2010 SHELBI SPRING TIER, CARLINE S 305.20 SA CANNABIS ABUSE 07/04/2010 SHELBI SPRING TIER, CARLINE S 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 07/04/2010 [...] MD N 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 07/04/2010 LARUA BENNETT MD 296.32 MO DEPRESSIVE RECURRENT MODERATE [...] 300.02 AN GEN ANXIETY 07/04/2010 MARIEE GRISELDAERO SPRING TIER, MARTÍNEZ N 301.9 PD PERS DIS NOS [...] MD 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 07/04/2010 MADL SPRING TIERRADHA HaleDION L 296.32 MO DEPRESSIVE RECURRENT MODERATE 07/04/2010 MADL SPRING TIER, DION L 300.02 AN GEN ANXIETY 07/04/2010 MADL SPRING TIER, DION L 301.9 PD PERS DIS NOS 07/04/2010 MADL SPRING TIER, DION L 303.90 SA ALCOHOLISM UNSPECI 07/04/2010 BIRDIEL SPRING TIERLIANA HaleNYA L 305.20 SA CANNABIS ABUSE 07/04/2010 [...] K 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 07/04/2010 MADL SPRING TIERLIANA HaleNYA L 296.32 MO DEPRESSIVE RECURRENT MODERATE 07/04/2010 MADL SPRING TIERLIANA HaleNYA L 300.02 AN GEN ANXIETY 07/04/2010 MADL SPRING TIERLIANA HaleNYA L 301.9 PD PERS DIS NOS 07/04/2010 MADL SPRING TIERLIANA HaleNYA L 303.90 SA ALCOHOLISM UNSPECI 07/04/2010 MADL SPRING TIERLIANADION L 305.20 SA CANNABIS ABUSE 07/04/2010 MADL SPRING TIER, DION L 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 07/04/2010 MADL SPRING TIER, DION L 296.32 MO DEPRESSIVE RECURRENT MODERATE 07/04/2010 BIRDIEL KATEY, DION L 300.02 AN GEN ANXIETY 07/04/2010 MADL SPRING TIER, DION L 301.9 PD PERS DIS NOS 07/04/2010 MADL SPRING TIER, DION L 303.90 SA ALCOHOLISM UNSPECI 07/04/2010 MADL SPRING TIER, DION L 305.20 SA CANNABIS ABUSE 07/04/2010 MADL SPRING TIER, DION L 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 07/04/2010 MADL SPRING TIER, DION L 296.32 MO DEPRESSIVE RECURRENT MODERATE 07/04/2010 BIRDIEL SPRING TIER, DION L 300.02 AN GEN ANXIETY 07/04/2010 MADL SPRING TIER, DION L 301.9 PD PERS DIS NOS 07/04/2010 MADL SPRING TIER, DION L 303.90 SA ALCOHOLISM UNSPECI 07/04/2010 MADL SPRING TIER, DION L 305.20 SA CANNABIS ABUSE 07/04/2010 MADL SPRING TIER, DION L 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 07/04/2010 [...] K 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 07/04/2010 MADL SPRING TIER, DION L 296.32 MO DEPRESSIVE RECURRENT MODERATE 07/04/2010 MADL SPRING TIER, DION L 300.02 AN GEN ANXIETY 07/04/2010 MADL SPRING TIER, DION L 301.9 PD PERS DIS NOS 07/04/2010 MADL SPRING TIER, DION L 303.90 SA ALCOHOLISM UNSPECI 07/04/2010 MADL SPRING TIER, DION L 305.20 SA CANNABIS ABUSE 07/04/2010 MADL SPRING TIER, DION L 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 07/04/2010 MADL SPRING TIER, DION L 296.32 MO DEPRESSIVE RECURRENT MODERATE 07/04/2010 MADL SPRING TIER, DION L 300.02 AN GEN ANXIETY 07/04/2010 MADL SPRING TIER, DION L 301.9 PD PERS DIS NOS 07/04/2010 MADL SPRING TIER, DION L 303.90 SA ALCOHOLISM UNSPECI 07/04/2010 MADL SPRING TIER, DION L 305.20 SA CANNABIS ABUSE 07/04/2010 MADL SPRING TIER, DION L 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 07/04/2010 MADL SPRING TIER, DION L 296.32 MO DEPRESSIVE RECURRENT MODERATE 07/04/2010 MADL SPRING TIER, DION L 300.02 AN GEN ANXIETY 07/04/2010 MADL SPRING TIER, DION L 301.9 PD PERS DIS NOS 07/04/2010 MADL SPRING TIER, DION L 303.90 SA ALCOHOLISM UNSPECI 07/04/2010 MADL SPRING TIER, DION L 305.20 SA CANNABIS ABUSE 07/04/2010 MADL SPRING TIER, DION L 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 07/04/2010 MADL SPRING TIER, DION L 296.32 MO DEPRESSIVE RECURRENT MODERATE 07/04/2010 MADL SPRING TIER, DION L 300.02 AN GEN ANXIETY 07/04/2010 MADL SPRING TIER, DION L 301.9 PD PERS DIS NOS 07/04/2010 MADL SPRING TIER, DION L 303.90 SA ALCOHOLISM UNSPECI 07/04/2010 MADL SPRING TIER, DION L 305.20 SA CANNABIS ABUSE 07/04/2010 MADL SPRING TIER, DION L 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 07/04/2010 MADL SPRING TIER, DION L 296.32 MO DEPRESSIVE RECURRENT MODERATE 07/04/2010 MADL SPRING TIER, DION L 300.02 AN GEN ANXIETY 07/04/2010 MADL SPRING TIER, DION L 301.9 PD PERS DIS NOS 07/04/2010 MADL SPRING TIER, DION L 303.90 SA ALCOHOLISM UNSPECI 07/04/2010 MADL SPRING TIER, DION L 305.20 SA CANNABIS ABUSE 07/04/2010 MADL SPRING TIER, DION L 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 07/04/2010 MADL SPRING TIER, DION L 296.32 MO DEPRESSIVE RECURRENT MODERATE 07/04/2010 MADL SPRING TIER, DION L 300.02 AN GEN ANXIETY 07/04/2010 MADL SPRING TIER, DION L 301.9 PD PERS DIS NOS 07/04/2010 MADL SPRING TIER, DION L 303.90 SA ALCOHOLISM UNSPECI 07/04/2010 MADL SPRING TIER, DION L 305.20 SA CANNABIS ABUSE 07/04/2010 MADL SPRING TIER, DION L 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 07/04/2010 MADL SPRING TIER, DION L 296.32 MO DEPRESSIVE RECURRENT MODERATE 07/04/2010 MADL SPRING TIER, DION L 300.02 AN GEN ANXIETY 07/04/2010 MADL SPRING TIER, DION L 301.9 PD PERS DIS NOS 07/04/2010 MADL SPRING TIER, DION L 303.90 SA ALCOHOLISM UNSPECI 07/04/2010 MADL SPRING TIER, DION L 305.20 SA CANNABIS ABUSE 07/04/2010 MADL SPRING TIER, DION L 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 07/04/2010 MADL SPRING TIER, DION L 296.32 MO DEPRESSIVE RECURRENT MODERATE 07/04/2010 MADL SPRING TIER, DION L 300.02 AN GEN ANXIETY 07/04/2010 MADL SPRING TIER, DION L 301.9 PD PERS DIS NOS 07/04/2010 MADL SPRING TIER, DION L 303.90 SA ALCOHOLISM UNSPECI 07/04/2010 MADL SPRING TIER, DION L 305.20 SA CANNABIS ABUSE 07/04/2010 MADL SPRING TIER, DION L 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 07/04/2010 MADL SPRING TIER, DION L 296.32 MO DEPRESSIVE RECURRENT MODERATE 07/04/2010 MADL SPRING TIER, DION L 300.02 AN GEN ANXIETY 07/04/2010 MADL SPRING TIER, DION L 301.9 PD PERS DIS NOS 07/04/2010 MADL SPRING TIER, DION L 303.90 SA ALCOHOLISM UNSPECI 07/04/2010 MADL SPRING TIER, DION L 305.20 SA CANNABIS ABUSE 07/04/2010 MADL SPRING TIER, DION L 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 07/04/2010 [...] K 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 07/04/2010 CASTELLANO SPRING TIER, BARRY R 296.32 MO DEPRESSIVE RECURRENT MODERATE 07/04/2010 CASTELLANO SPRING TIER, BARRY R 300.02 AN GEN ANXIETY 07/04/2010 CASTELLANO SPRING TIER, BARRY R 301.9 PD PERS DIS NOS 07/04/2010 CASTELLANO SPRING TIER, BARRY R 303.90 SA ALCOHOLISM UNSPECI 07/04/2010 CASTELLANO SPRING TIER, BARRY R 305.20 SA CANNABIS ABUSE 07/04/2010 CASTELLANO SPRING TIER, BARRY R 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 07/04/2010 [...] TORO, ANNEL FRANCES 787.91 Diarrhea 07/09/2010 АННА SPRING TIER, ANNEL FRANCES 789.00 Abdominal Pain Unspecified Site [...] 789.00 Abdominal Pain Unspecified Site 07/09/2010 BINDU PAML MD 787.91 Diarrhea 07/09/2010 BINDU PALM MD 789.00 Abdominal Pain Unspecified Site 07/09/2010 NÉSTOR MOREIRA, BINDU Hidalgo 787.91 Diarrhea 07/09/2010 BINDU PALM MD 789.00 Abdominal Pain Unspecified Site 07/09/2010 LOCKETT DO, SHANNA K 787.91 Diarrhea 07/09/2010 LOCKETT DO, SHANNA K 789.00 Abdominal Pain Unspecified Site 07/09/2010 BINDU PALM MD 787.91 Diarrhea 07/09/2010 BINDU PALM MD 789.00 Abdominal Pain Unspecified Site 07/09/2010 SHELBI SPRING TIER, CARLINE S 787.91 Diarrhea 07/09/2010 SHELBI SPRING TIER, CARLINE S 789.00 Abdominal Pain Unspecified Site 07/09/2010 SHELBI SPRING TIER, CARLINE S 787.91 Diarrhea 07/09/2010 SHELBI SPRING TIER, CARLINE S 789.00 Abdominal Pain Unspecified Site [...] Abdominal Pain Unspecified Site 07/09/2010 MARIEE CASHERO SPRING TIER, MARTÍNEZ N 787.91 Diarrhea 07/09/2010 MARIEE CASHERO SPRING TIER, MARTÍNEZ N 789.00 Abdominal Pain Unspecified Site 07/09/2010 BINDU PALM MD 787.91 Diarrhea 07/09/2010 BINDU PALM MD 789.00 Abdominal Pain Unspecified Site 07/09/2010 MARIEE CASHERO SPRING TIER, MARTÍNEZ N 787.91 Diarrhea 07/09/2010 MARIEE CASHERO SPRING TIER, MARTÍNEZ N 789.00 Abdominal Pain Unspecified Site 07/09/2010 ANNEL JJ APRN 787.91 Diarrhea 07/09/2010 ANNEL JJ APRN 789.00 Abdominal Pain Unspecified Site 07/09/2010 LAURA BENNETT MD 787.91 Diarrhea 07/09/2010 LAURA BENNETT MD 789.00 Abdominal Pain Unspecified Site 07/09/2010 MADL SPRING TIER, DION L 787.91 Diarrhea 07/09/2010 MADL SPRING TIER, DION L 789.00 Abdominal Pain Unspecified Site 07/09/2010 LAURA BENNETT MD 787.91 Diarrhea 07/09/2010 LAURA BENNETT MD 789.00 Abdominal Pain Unspecified Site 07/09/2010 MADL SPRING TIER, DION L 787.91 Diarrhea 07/09/2010 MADL SPRING TIER, DION L 789.00 Abdominal Pain Unspecified Site 07/09/2010 LOCKETT DO, SHANNA K 787.91 Diarrhea 07/09/2010 LOCKETT DO, SHANNA K 789.00 Abdominal Pain Unspecified Site 07/09/2010 LOCKETT DO, SHANNA K 787.91 Diarrhea 07/09/2010 LOCKETT DO, SHANNA K 789.00 Abdominal Pain Unspecified Site 07/09/2010 MADL SPRING TIER, DION L 787.91 Diarrhea 07/09/2010 MADL SPRING TIER, DION L 789.00 Abdominal Pain Unspecified Site 07/09/2010 MADL SPRING TIER, DION L 787.91 Diarrhea 07/09/2010 MADL SPRING TIER, DION L 789.00 Abdominal Pain Unspecified Site 07/09/2010 MADL SPRING TIER, DION L 787.91 Diarrhea 07/09/2010 MADL SPRING TIER, DION L 789.00 Abdominal Pain Unspecified Site 07/09/2010 LOCKETT DO, SHANNA K 787.91 Diarrhea 07/09/2010 LOCKETT DO, SHANNA K 789.00 Abdominal Pain Unspecified Site 07/09/2010 MADL SPRING TIER, DION L 787.91 Diarrhea 07/09/2010 MADL SPRING TIER, DION L 789.00 Abdominal Pain Unspecified Site 07/09/2010 MADL SPRING TIER, DION L 787.91 Diarrhea 07/09/2010 MADL SPRING TIER, DION L 789.00 Abdominal Pain Unspecified Site 07/09/2010 MADL SPRING TIER, DION L 787.91 Diarrhea 07/09/2010 MADL SPRING TIER, DION L 789.00 Abdominal Pain Unspecified Site 07/09/2010 MADL SPRING TIER, DION L 787.91 Diarrhea 07/09/2010 MADL SPRING TIER, DION L 789.00 Abdominal Pain Unspecified Site 07/09/2010 MADL SPRING TIER, DION L 787.91 Diarrhea 07/09/2010 MADL SPRING TIER, DION L 789.00 Abdominal Pain Unspecified Site 07/09/2010 MADL SPRING TIER, DION L 787.91 Diarrhea 07/09/2010 MADL SPRING TIER, DION L 789.00 Abdominal Pain Unspecified Site 07/09/2010 MADL SPRING TIER, DION L 787.91 Diarrhea 07/09/2010 MADL SPRING TIER, DION L 789.00 Abdominal Pain Unspecified Site 07/09/2010 MADL SPRING TIER, DION L 787.91 Diarrhea 07/09/2010 MADL SPRING TIER, DION L 789.00 Abdominal Pain Unspecified Site 07/09/2010 MADL SPRING TIER, DION L 787.91 Diarrhea 07/09/2010 MADL SPRING TIER, DION L 789.00 Abdominal Pain Unspecified Site 07/09/2010 LOCKETT DO, SHANNA K 787.91 Diarrhea 07/09/2010 LOCKETT DO, SHANNA K 789.00 Abdominal Pain Unspecified Site 07/09/2010 CASTELLANO SPRING TIER, BARRY R 787.91 Diarrhea 07/09/2010 CASTELLANO SPRING TIER, BARRY R 789.00 Abdominal Pain Unspecified Site 07/09/2010 LOCKETT DO, SHANNA K 787.91 Diarrhea 07/09/2010 LOCKETT DO, SHANNA K 789.00 Abdominal Pain Unspecified Site 08/29/2010 Ot 486 08/29/2010 Ot 496 08/29/2010 Ot 786.05 09/02/2010 486 Pneumonia 09/02/2010 493.90 ASTHMA 09/02/2010 DON POOL MD 486 Pneumonia 09/02/2010 DON POOL MD 493.90 ASTHMA 09/02/2010 JJ KATEY, ANNEL FRANCES 486 Pneumonia 09/02/2010 АННА SPRING TIER, ANNEL FRANCES 493.90 ASTHMA 09/02/2010 LOCKETT DO, [...] NÉSTOR MOREIRA, BINDU Hidalgo 493.90 ASTHMA 09/02/2010 SHELBI SPRING TIER, CARLINE S 486 Pneumonia 09/02/2010 SHELBI SPRING TIER, CARLINE S 493.90 ASTHMA 09/02/2010 SHELBI SPRING TIER, CARLINE S 486 Pneumonia 09/02/2010 SHELBI SPRING TIER, CARLINE S 493.90 ASTHMA 09/02/2010 SABRINA MOREIRA, LAURA 486 Pneumonia 09/02/2010 SABRINA MOREIRA, LAURA 493.90 ASTHMA 09/02/2010 LOBITO MOREIRA, ELIZABETH N 486 Pneumonia 09/02/2010 LOBITO MOREIRA, ELIZABETH N 493.90 ASTHMA 09/02/2010 SABRINA MOREIRA, LAURA 486 Pneumonia 09/02/2010 SABRINA MOREIRA, LAURA 493.90 ASTHMA 09/02/2010 LOCKETT DO, SHANNA K 486 Pneumonia 09/02/2010 LOCKETT DO, SHANNA K 493.90 ASTHMA 09/02/2010 MARIEE CASHERO SPRING TIER, MARTÍNEZ N 486 Pneumonia 09/02/2010 MARIEE CASHERO SPRING TIER, MARTÍNEZ N 493.90 ASTHMA 09/02/2010 NÉSTOR MOREIRA, BINDU M 486 Pneumonia 09/02/2010 NÉSTOR MOREIRA, BINDU M 493.90 ASTHMA 09/02/2010 MARIEE CASHERO SPRING TIER, MARTÍNEZ N 486 Pneumonia 09/02/2010 MARIEE CASHERO SPRING TIER, MARTÍNEZ N 493.90 ASTHMA 09/02/2010 АННА SPRING TIER, ANNEL FRANCES 486 Pneumonia 09/02/2010 АННА SPRING TIER, ANNEL FRANCES 493.90 ASTHMA 09/02/2010 SABRINA MOREIRA, LAURA 486 Pneumonia 09/02/2010 SABRINA MOREIRA, LAURA 493.90 ASTHMA 09/02/2010 MADL SPRING TIER, DION L 486 Pneumonia 09/02/2010 MADL SPRING TIER, DION L 493.90 ASTHMA 09/02/2010 SABRINA MOREIRA, LAURA 486 Pneumonia 09/02/2010 SABRINA MOREIRA, LAURA 493.90 ASTHMA 09/02/2010 MADL SPRING TIER, DION L 486 Pneumonia 09/02/2010 MADL SPRING TIER, DION L 493.90 ASTHMA 09/02/2010 LOCKETT DO, SHANNA K 486 Pneumonia 09/02/2010 LOCKETT DO, SHANNA K 493.90 ASTHMA 09/02/2010 LOCKETT DO, SHANNA K 486 Pneumonia 09/02/2010 LOCKETT DO, SHANNA K 493.90 ASTHMA 09/02/2010 MADL SPRING TIER, DION L 486 Pneumonia 09/02/2010 MADL SPRING TIER, DION L 493.90 ASTHMA 09/02/2010 MADL SPRING TIER, DION L 486 Pneumonia 09/02/2010 MADL SPRING TIER, DION L 493.90 ASTHMA 09/02/2010 MADL SPRING TIER, DION L 486 Pneumonia 09/02/2010 MADL SPRING TIER, DION L 493.90 ASTHMA 09/02/2010 LOCKETT DO, SHANNA K 486 Pneumonia 09/02/2010 LOCKETT DO, SHANNA K 493.90 ASTHMA 09/02/2010 MADL SPRING TIER, DION L 486 Pneumonia 09/02/2010 MADL SPRING TIER, DION L 493.90 ASTHMA 09/02/2010 MADL SPRING TIER, DION L 486 Pneumonia 09/02/2010 MADL SPRING TIER, DION L 493.90 ASTHMA 09/02/2010 MADL SPRING TIER, DION L 486 Pneumonia 09/02/2010 MADL SPRING TIER, DION L 493.90 ASTHMA 09/02/2010 MADL SPRING TIER, DION L 486 Pneumonia 09/02/2010 MADL SPRING TIER, DION L 493.90 ASTHMA 09/02/2010 MADL SPRING TIER, DION L 486 Pneumonia 09/02/2010 MADL SPRING TIER, DION L 493.90 ASTHMA 09/02/2010 MADL SPRING TIER, DION L 486 Pneumonia 09/02/2010 MADL SPRING TIER, DION L 493.90 ASTHMA 09/02/2010 MADL SPRING TIER, DION L 486 Pneumonia 09/02/2010 MADL SPRING TIER, DION L 493.90 ASTHMA 09/02/2010 MADL SPRING TIER, DION L 486 Pneumonia 09/02/2010 MADL SPRING TIER, DION L 493.90 ASTHMA 09/02/2010 MADL SPRING TIER, DION L 486 Pneumonia 09/02/2010 MADL SPRING TIER, DION L 493.90 ASTHMA 09/02/2010 LOCKETT DO, SHANNA K 486 Pneumonia 09/02/2010 LOCKETT DO, SHANNA K 493.90 ASTHMA 09/02/2010 CASTELLANO SPRING TIER, BARRY R 486 Pneumonia 09/02/2010 CASTELLANO SPRING TIER, BARRY R 493.90 ASTHMA 09/02/2010 LOCKETT DO, [...] 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 10/07/2010 SHELBI SPRING TIER, CARLINE S 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 10/07/2010 SHELBI SPRING TIER, CARLINE S 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 10/07/2010 LAURA BENNETT MD 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 10/07/2010 LOBITO MOREIRA, ELIZABETH N 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 10/07/2010 LAURA BENNETT MD 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 10/07/2010 LOCKETT DO, SHANNA K 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 10/07/2010 MARIEE CASHERO SPRING TIER, MARTÍNEZ N 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 10/07/2010 BINDU PALM MD M 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 10/07/2010 MARIEE CASHERO SPRING TIER, MARTÍNEZ N 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 10/07/2010 АННА DEL TORO ANNEL FRANCES 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 10/07/2010 LAURA BENNETT MD 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 10/07/2010 MADL SPRING TIER, DION L 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 10/07/2010 LAURA BENNETT MD 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 10/07/2010 MADL SPRING TIER, DION L 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 10/07/2010 LOCKETT DO, SHANNA K 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 10/07/2010 LOCKETT DO, SHANNA K 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 10/07/2010 MADL SPRING TIER, DION L 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 10/07/2010 MADL SPRING TIER, DION L 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 10/07/2010 MADL SPRING TIER, DION L 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 10/07/2010 LOCKETT DO, SHANNA K 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 10/07/2010 MADL SPRING TIER, DION L 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 10/07/2010 MADL SPRING TIER, DION L 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 10/07/2010 MADL SPRING TIER, DION L 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 10/07/2010 MADL SPRING TIER, DION L 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 10/07/2010 MADL SPRING TIER, DION L 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 10/07/2010 MADL SPRING TIER, DION L 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 10/07/2010 MADL SPRING TIER, DION L 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 10/07/2010 MADL SPRING TIER, DION L 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 10/07/2010 MADL SPRING TIER, DION L 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 10/07/2010 LOCKETT DO, SHANNA K 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 10/07/2010 CASTELLANO SPRING TIER, BARRY R 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 [...] N 491.21 Bronchitis Aecb 12/30/2010 MARIEE CASHERO SPRING TIER, MARTÍNEZ N 792.1 Nonspecific Abnormal Findings In Stool Contents 12/30/2010 BINDU PALM MD 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 12/30/2010 BINDU PALM MD 491.21 Bronchitis Aecb 12/30/2010 BINDU PALM MD 792.1 Nonspecific Abnormal Findings In Stool Contents 12/30/2010 MARIEE GRISELDAERO SPRING TIER, MARTÍNEZ N 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 12/30/2010 MARIEE CASHERO SPRING TIER, MARTÍNEZ N 491.21 Bronchitis Aecb 12/30/2010 MARIEE CASHERO SPRING TIER, MARTÍNEZ N 792.1 Nonspecific Abnormal Findings In Stool Contents 12/30/2010 АННА DE LUNANANNEL 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 12/30/2010 АННА DE LUNAAlexia ANNEL FRANCES 491.21 Bronchitis Aecb 12/30/2010 ANNEL JJ APRN 792.1 Nonspecific Abnormal Findings In Stool Contents 12/30/2010 LAURA BENNETT MD 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 12/30/2010 LAURA BENNETT MD 491.21 Bronchitis Aecb 12/30/2010 LAUAR BENNETT MD 792.1 Nonspecific Abnormal Findings In Stool Contents 12/30/2010 BIRDIEL LAURE DEL TOROA L 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 12/30/2010 BIRDIEL LIANA DEL TORONYA L 491.21 Bronchitis Aecb 12/30/2010 BIRDIEL SPRING TIER, DION L 792.1 Nonspecific Abnormal Findings In Stool Contents 12/30/2010 LAURA BENNETT MD 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 12/30/2010 LAURA BENNETT MD 491.21 Bronchitis Aecb 12/30/2010 LAURA BENNETT MD 792.1 Nonspecific Abnormal Findings In Stool Contents 12/30/2010 BIRDIEL LIANA DEL TORONYA L 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 12/30/2010 MADL SPRING TIER, DION L 491.21 Bronchitis Aecb 12/30/2010 MADL SPRING TIER, DION L 792.1 Nonspecific Abnormal Findings In [...] Abnormal Findings In Stool Contents 12/30/2010 MADL SPRING TIER, DION L 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 12/30/2010 MADL SPRING TIER, DION L 491.21 Bronchitis Aecb 12/30/2010 MADL SPRING TIER, DION L 792.1 Nonspecific Abnormal Findings In Stool Contents 12/30/2010 MADL SPRING TIER, DION L 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 12/30/2010 MADL SPRING TIER, DION L 491.21 Bronchitis Aecb 12/30/2010 MADL SPRING TIER, DION L 792.1 Nonspecific Abnormal Findings In Stool Contents 12/30/2010 MADL SPRING TIER, DION L 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 12/30/2010 MADL SPRING TIER, DION L 491.21 Bronchitis Aecb 12/30/2010 MADL SPRING TIER, DION L 792.1 Nonspecific Abnormal Findings In Stool Contents 12/30/2010 LOCKETT DO, SHANNA K 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 12/30/2010 LOCKETT DO, SHANNA K 491.21 Bronchitis Aecb 12/30/2010 LOCKETT DO, SHANNA K 792.1 Nonspecific Abnormal Findings In Stool Contents 12/30/2010 MADL SPRING TIER, DION L 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 12/30/2010 MADL SPRING TIER, DION L 491.21 Bronchitis Aecb 12/30/2010 MADL SPRING TIER, DION L 792.1 Nonspecific Abnormal Findings In Stool Contents 12/30/2010 MADL SPRING TIER, DION L 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 12/30/2010 MADL SPRING TIER, DION L 491.21 Bronchitis Aecb 12/30/2010 MADL SPRING TIER, DION L 792.1 Nonspecific Abnormal Findings In Stool Contents 12/30/2010 MADL SPRING TIER, DION L 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 12/30/2010 MADL SPRING TIER, DION L 491.21 Bronchitis Aecb 12/30/2010 MADL SPRING TIER, DION L 792.1 Nonspecific Abnormal Findings In Stool Contents 12/30/2010 MADL SPRING TIER, DION L 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 12/30/2010 MADL SPRING TIER, DION L 491.21 Bronchitis Aecb 12/30/2010 MADL SPRING TIER, DION L 792.1 Nonspecific Abnormal Findings In Stool Contents 12/30/2010 MADL SPRING TIER, DION L 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 12/30/2010 MADL SPRING TIER, DION L 491.21 Bronchitis Aecb 12/30/2010 MADL SPRING TIER, DION L 792.1 Nonspecific Abnormal Findings In Stool Contents 12/30/2010 MADL SPRING TIER, DION L 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 12/30/2010 MADL SPRING TIER, DION L 491.21 Bronchitis Aecb 12/30/2010 MADL SPRING TIER, DION L 792.1 Nonspecific Abnormal Findings In Stool Contents 12/30/2010 MADL SPRING TIER, DION L 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 12/30/2010 MADL SPRING TIER, DION L 491.21 Bronchitis Aecb 12/30/2010 MADL SPRING TIER, DION L 792.1 Nonspecific Abnormal Findings In Stool Contents 12/30/2010 MADL SPRING TIER, DION L 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 12/30/2010 MADL SPRING TIER, DION L 491.21 Bronchitis Aecb 12/30/2010 MADL SPRING TIER, DION L 792.1 Nonspecific Abnormal Findings In [...] Abnormal Findings In Stool Contents 12/30/2010 CASTELLANO SPRING TIER, BARRY R 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 12/30/2010 CASTELLANO SPRING TIER, BARRY R 491.21 Bronchitis Aecb 12/30/2010 CASTELLANO SPRING TIER, BARRY R 792.1 Nonspecific Abnormal Findings In [...] K 304.80 SA POLYSUB DEP 05/01/2011 MADL SPRING TIER, DION L 304.80 SA POLYSUB DEP 05/01/2011 MADL SPRING TIER, DION L 304.80 SA POLYSUB DEP 05/01/2011 MADL SPRING TIER, DION L 304.80 SA POLYSUB DEP 05/01/2011 LOCKETT DO SHANNA K 304.80 SA POLYSUB DEP 05/01/2011 MADL SPRING TIER, DION L 304.80 SA POLYSUB DEP 05/01/2011 MADL SPRING TIER, DION L 304.80 SA POLYSUB DEP 05/01/2011 MADL SPRING TIER, DION L 304.80 SA POLYSUB DEP 05/01/2011 MADL SPRING TIER, DION L 304.80 SA POLYSUB DEP 05/01/2011 MADL SPRING TIER, DION L 304.80 SA POLYSUB DEP 05/01/2011 MADL SPRING TIER, DION L 304.80 SA POLYSUB DEP 05/01/2011 MADL SPRING TIER, DION L 304.80 SA POLYSUB DEP 05/01/2011 MADL SPRING TIER, DION L 304.80 SA POLYSUB DEP 05/01/2011 MADL SPRING TIER, DION L 304.80 SA POLYSUB DEP 05/01/2011 LOCKETT DOSHANNA K 304.80 SA POLYSUB DEP 05/01/2011 CASTELLANO SPRING TIER, BARRY R 304.80 SA POLYSUB DEP 05/01/2011 [...] V73.89 Other Specified Viral Diseases 05/26/2011 SHELBI SPRING TIER, CARLINE S V73.89 Other Specified Viral Diseases 05/26/2011 SHELBI SPRING TIER, CARLINE S V73.89 Other Specified Viral Diseases [...] V73.89 Other Specified Viral Diseases 05/26/2011 MADL SPRING TIERDION L V73.89 Other Specified Viral Diseases 05/26/2011 LAURA BENNETT MD V73.89 Other Specified Viral Diseases 05/26/2011 MADL SPRING TIERDION L V73.89 Other Specified Viral Diseases 05/26/2011 LOCKETT SHANNA CARRANZA K V73.89 Other Specified Viral Diseases 05/26/2011 LOCKETT SHANNA CARRANZA K V73.89 Other Specified Viral Diseases 05/26/2011 MADL SPRING TIER DION L V73.89 Other Specified Viral Diseases 05/26/2011 MADL SPRING TIER, DION L V73.89 Other Specified Viral Diseases 05/26/2011 MADL SPRING TIER, DION L V73.89 Other Specified Viral Diseases 05/26/2011 LEVY CARRANZASHANNA K V73.89 Other Specified Viral Diseases 05/26/2011 MADL SPRING TIER, DION L V73.89 Other Specified Viral Diseases 05/26/2011 MADL SPRING TIER, DION L V73.89 Other Specified Viral Diseases 05/26/2011 MADL SPRING TIER, DION L V73.89 Other Specified Viral Diseases 05/26/2011 MADL SPRING TIER, DION L V73.89 Other Specified Viral Diseases 05/26/2011 MADL SPRING TIER, DION L V73.89 Other Specified Viral Diseases 05/26/2011 MADL SPRING TIER, DION L V73.89 Other Specified Viral Diseases 05/26/2011 MADL SPRING TIER, DION L V73.89 Other Specified Viral Diseases 05/26/2011 MADL SPRING TIER, DION L V73.89 Other Specified Viral Diseases 05/26/2011 MADL SPRING TIER, DION L V73.89 Other Specified Viral Diseases 05/26/2011 LOCKETT SHANNA CARRANZA K V73.89 Other Specified Viral Diseases 05/26/2011 CASTELLANO SPRING TIERRENOIA R V73.89 Other Specified Viral Diseases 05/26/2011 LOCKETT SHANNA CARRANZA K V73.89 Other Specified Viral Diseases 05/27/2011 272.1 HYPERTRIGLYCERIDEMIA 05/27/2011 288.60 Leukocytosis 05/27/2011 V58.69 MEDICATION HIGH RISK 05/27/2011 DON POOL MD 272.1 HYPERTRIGLYCERIDEMIA 05/27/2011 DON POOL MD 288.60 Leukocytosis 05/27/2011 DON POOL MD V58.69 MEDICATION HIGH RISK 05/27/2011 JJ SPRING TIER, ANNEL FRANCES 272.1 HYPERTRIGLYCERIDEMIA 05/27/2011 JJ SPRING TIER ANNEL FRANCES 288.60 Leukocytosis 05/27/2011 JJ SPRING TIER, ANNEL FRANCES V58.69 MEDICATION HIGH RISK 05/27/2011 [...] BINDU PALM MD 288.60 Leukocytosis 05/27/2011 BINDU PAML MD V58.69 MEDICATION HIGH RISK 05/27/2011 272.1 [...] MD V58.69 MEDICATION HIGH RISK 05/27/2011 SHELBI SPRING TIER, CARLINE S 272.1 HYPERTRIGLYCERIDEMIA 05/27/2011 SHELBI SPRING TIER, CARLINE S 288.60 Leukocytosis 05/27/2011 SHELBI SPRING TIER, CARLINE S V58.69 MEDICATION HIGH RISK 05/27/2011 SHELBI SPRING TIER, CARLINE S 272.1 HYPERTRIGLYCERIDEMIA 05/27/2011 SHELBI SPRING TIER, CARLINE S 288.60 Leukocytosis 05/27/2011 SHELBI SPRING TIER, CARLINE S V58.69 MEDICATION HIGH RISK 05/27/2011 [...] V58.69 MEDICATION HIGH RISK 05/27/2011 MARIEE CASHERO SPRING TIER, MARTÍNEZ N 272.1 HYPERTRIGLYCERIDEMIA 05/27/2011 MARIEE CASHERO SPRING TIER, MARTÍNEZ N 288.60 Leukocytosis 05/27/2011 MARIEE CASHERO SPRING TIER, MARTÍNEZ N V58.69 MEDICATION HIGH RISK 05/27/2011 BINDU PALM MD 272.1 HYPERTRIGLYCERIDEMIA 05/27/2011 BINDU PALM MD 288.60 Leukocytosis 05/27/2011 BINDU PALM MD V58.69 MEDICATION HIGH RISK 05/27/2011 MARIEE CASHERO SPRING TIER, MARTÍNEZ N 272.1 HYPERTRIGLYCERIDEMIA 05/27/2011 MARIEE CASHERO SPRING TIER, MARTÍNEZ N 288.60 Leukocytosis 05/27/2011 MARIEE CASHERO SPRING TIER, MARTÍNEZ N V58.69 MEDICATION HIGH RISK 05/27/2011 JJ SPRING TIER, ANNEL FRANCES 272.1 HYPERTRIGLYCERIDEMIA 05/27/2011 JJ SPRING TIER, ANNEL FRANCES 288.60 Leukocytosis 05/27/2011 JJ SPRING TIER ANNEL FRANCES V58.69 MEDICATION HIGH RISK 05/27/2011 LAURA BENNETT MD 272.1 HYPERTRIGLYCERIDEMIA 05/27/2011 LAURA BENNETT MD 288.60 Leukocytosis 05/27/2011 LAURA BENNETT MD V58.69 MEDICATION HIGH RISK 05/27/2011 MADL SPRING TIER, DION L 272.1 HYPERTRIGLYCERIDEMIA 05/27/2011 MADL SPRING TIER, DION L 288.60 Leukocytosis 05/27/2011 MADL SPRING TIER, DION L V58.69 MEDICATION HIGH RISK 05/27/2011 LAURA BENNETT MD 272.1 HYPERTRIGLYCERIDEMIA 05/27/2011 LAURA BENNETT MD 288.60 Leukocytosis 05/27/2011 LAURA BENNETT MD V58.69 MEDICATION HIGH RISK 05/27/2011 MADL SPRING TIER, DION L 272.1 HYPERTRIGLYCERIDEMIA 05/27/2011 MADL SPRING TIER, DION L 288.60 Leukocytosis 05/27/2011 MADL SPRING TIER, DION L V58.69 MEDICATION HIGH RISK 05/27/2011 LOCKETT DO, SHANNA K 272.1 HYPERTRIGLYCERIDEMIA 05/27/2011 LOCKETT DO, SHANNA K 288.60 Leukocytosis 05/27/2011 LOCKETT DO, SHANNA K V58.69 MEDICATION HIGH RISK 05/27/2011 LOCKETT DO, SHANNA K 272.1 HYPERTRIGLYCERIDEMIA 05/27/2011 LOCKETT DO, SHANNA K 288.60 Leukocytosis 05/27/2011 LOCKETT DO, SHANNA K V58.69 MEDICATION HIGH RISK 05/27/2011 MADL SPRING TIER, DION L 272.1 HYPERTRIGLYCERIDEMIA 05/27/2011 MADL SPRING TIER, DION L 288.60 Leukocytosis 05/27/2011 MADL SPRING TIER, DION L V58.69 MEDICATION HIGH RISK 05/27/2011 MADL SPRING TIER, DION L 272.1 HYPERTRIGLYCERIDEMIA 05/27/2011 MADL SPRING TIER, DION L 288.60 Leukocytosis 05/27/2011 MADL SPRING TIER, DION L V58.69 MEDICATION HIGH RISK 05/27/2011 MADL SPRING TIER, DION L 272.1 HYPERTRIGLYCERIDEMIA 05/27/2011 MADL SPRING TIER, DION L 288.60 Leukocytosis 05/27/2011 MADL SPRING TIER, DION L V58.69 MEDICATION HIGH RISK 05/27/2011 LOCKETT DO, SHANNA K 272.1 HYPERTRIGLYCERIDEMIA 05/27/2011 LOCKETT DO, SHANNA K 288.60 Leukocytosis 05/27/2011 LOCKETT DO, SHANNA K V58.69 MEDICATION HIGH RISK 05/27/2011 MADL SPRING TIER, DION L 272.1 HYPERTRIGLYCERIDEMIA 05/27/2011 MADL SPRING TIER, DION L 288.60 Leukocytosis 05/27/2011 MADL SPRING TIER, DION L V58.69 MEDICATION HIGH RISK 05/27/2011 MADL SPRING TIER, DION L 272.1 HYPERTRIGLYCERIDEMIA 05/27/2011 MADL SPRING TIER, DION L 288.60 Leukocytosis 05/27/2011 MADL SPRING TIER, DION L V58.69 MEDICATION HIGH RISK 05/27/2011 MADL SPRING TIER, DION L 272.1 HYPERTRIGLYCERIDEMIA 05/27/2011 MADL SPRING TIER, DION L 288.60 Leukocytosis 05/27/2011 MADL SPRING TIER, DION L V58.69 MEDICATION HIGH RISK 05/27/2011 MADL SPRING TIER, DION L 272.1 HYPERTRIGLYCERIDEMIA 05/27/2011 MADL SPRING TIER, DION L 288.60 Leukocytosis 05/27/2011 MADL SPRING TIER, DION L V58.69 MEDICATION HIGH RISK 05/27/2011 MADL SPRING TIER, DION L 272.1 HYPERTRIGLYCERIDEMIA 05/27/2011 MADL SPRING TIER, DION L 288.60 Leukocytosis 05/27/2011 MADL SPRING TIER, DION L V58.69 MEDICATION HIGH RISK 05/27/2011 MADL SPRING TIER, DION L 272.1 HYPERTRIGLYCERIDEMIA 05/27/2011 MADL SPRING TIER, DION L 288.60 Leukocytosis 05/27/2011 MADL SPRING TIER, DION L V58.69 MEDICATION HIGH RISK 05/27/2011 MADL SPRING TIER, DION L 272.1 HYPERTRIGLYCERIDEMIA 05/27/2011 MADL SPRING TIER, DION L 288.60 Leukocytosis 05/27/2011 [facility], DION L V58.69 MEDICATION HIGH RISK 05/27/2011 MADL SPRING TIER, DION L 272.1 HYPERTRIGLYCERIDEMIA 05/27/2011 MADL SPRING TIER, DION L 288.60 Leukocytosis 05/27/2011 MADL SPRING TIER, DION L V58.69 MEDICATION HIGH RISK 05/27/2011 MADL SPRING TIER, DION L 272.1 HYPERTRIGLYCERIDEMIA 05/27/2011 [facility] SPRING TIER, DION L 288.60 Leukocytosis 05/27/2011 MAD SPRING TIER, DION L V58.69 MEDICATION HIGH RISK 05/27/2011 LOCKETT DO, SHANNA K 272.1 HYPERTRIGLYCERIDEMIA 05/27/2011 LOCKETT DO, SHANNA K 288.60 Leukocytosis 05/27/2011 LOCKETT DO, SHANNA K V58.69 MEDICATION HIGH RISK 05/27/2011 CASTELLANO SPRING TIER, BARRY R 272.1 HYPERTRIGLYCERIDEMIA 05/27/2011 CASTELLANO SPRING TIER, BARRY R 288.60 Leukocytosis 05/27/2011 CASTELLANO SPRING TIER, BARRY R V58.69 MEDICATION HIGH RISK 05/27/2011 LOCKETT DO, SHANNA K 272.1 HYPERTRIGLYCERIDEMIA 05/27/2011 LOCKETT DO, SHANNA K 288.60 Leukocytosis 05/27/2011 LEVY CARRANZA, SHANNA Mcmanus V58.69 MEDICATION HIGH RISK 06/05/2011 486 Pneumonia Unspecified 06/05/2011 YRN MOREIRA, DON 486 Pneumonia Unspecified 06/05/2011 АННА SPRING TIER, ANNEL FRANCES 486 Pneumonia Unspecified 06/05/2011 LEVY CARRANZA, SHANNA [...] K 486 Pneumonia Unspecified 06/05/2011 JAYLENE PURDY SPRING TIER, MARTÍNEZ N 486 Pneumonia Unspecified 06/05/2011 NÉSTOR MOREIRA, BINDU M 486 Pneumonia Unspecified 06/05/2011 JAYLENE PURDY APRN, MARTÍNEZ N 486 Pneumonia Unspecified 06/05/2011 АННА DEL TORO, ANNEL FRANCES 486 Pneumonia Unspecified 06/05/2011 SABRINA MOREIRA, LAURA 486 Pneumonia Unspecified 06/05/2011 BRITTANY DEL TORO, DION L 486 Pneumonia Unspecified 06/05/2011 SABRINA MOREIRA, LAURA 486 Pneumonia Unspecified 06/05/2011 MADL SPRING TIER, DION L 486 Pneumonia Unspecified 06/05/2011 LOCKETT DO, SHANNA K 486 Pneumonia Unspecified 06/05/2011 LOCKETT DO, SHANNA K 486 Pneumonia Unspecified 06/05/2011 MADL SPRING TIER, DION L 486 Pneumonia Unspecified 06/05/2011 MADL SPRING TIER, DION L 486 Pneumonia Unspecified 06/05/2011 MADL SPRING TIER, DION L 486 Pneumonia Unspecified 06/05/2011 LOCKETT DO, SHANNA K 486 Pneumonia Unspecified 06/05/2011 MADL SPRING TIER, DION L 486 Pneumonia Unspecified 06/05/2011 MADL SPRING TIER, DION L 486 Pneumonia Unspecified 06/05/2011 MADL SPRING TIER, DION L 486 Pneumonia Unspecified 06/05/2011 MADL SPRING TIER, DION L 486 Pneumonia Unspecified 06/05/2011 MADL SPRING TIER, DION L 486 Pneumonia Unspecified 06/05/2011 MADL SPRING TIER, DION L 486 Pneumonia Unspecified 06/05/2011 MADL SPRING TIER, DION L 486 Pneumonia Unspecified 06/05/2011 MADL SPRING TIER, DION L 486 Pneumonia Unspecified 06/05/2011 MADL SPRING TIER, DION L 486 Pneumonia Unspecified 06/05/2011 LOCKETT DO, SHANNA K 486 Pneumonia Unspecified 06/05/2011 CASTELLANO SPRING TIER, BARRY R 486 Pneumonia Unspecified 06/05/2011 LOCKETT DO, SHANNA K 486 Pneumonia Unspecified 06/10/2011 V72.31 Pig Machine Crane Operator Exam, Routine 06/10/2011 V73.81 Hpv Screening 06/10/2011 V76.2 Cervical Cancer Screening (pap Smear) 06/10/2011 DON POOL MD V72.31 Pig Machine Crane Operator Exam, Routine 06/10/2011 DON POOL MD V73.81 Hpv Screening 06/10/2011 DON POOL MD V76.2 Cervical Cancer Screening (pap Smear) 06/10/2011 ANNEL JJ APRN V72.31 Pig Machine Crane Operator Exam, Routine 06/10/2011 ANNEL JJ APRN V73.81 Hpv Screening 06/10/2011 ANNEL JJ APRN V76.2 Cervical Cancer Screening (pap Smear) 06/10/2011 SHANNA LOCKETT DO V72.31 Pig Machine Crane Operator Exam, Routine 06/10/2011 SHANNA LOCKETT DO V73.81 Hpv Screening 06/10/2011 SHANNA LOCKETT DO V76.2 Cervical Cancer Screening (pap Smear) 06/10/2011 LAURA BENNETT MD V72.31 Pig Machine Crane Operator Exam, Routine 06/10/2011 LAURA BENNETT MD V73.81 Hpv Screening 06/10/2011 LAURA BENNETT MD V76.2 Cervical Cancer Screening (pap Smear) 06/10/2011 SHANNA LOCKETT DO V72.31 Pig Machine Crane Operator Exam, Routine 06/10/2011 SHANNA LOCKETT DO V73.81 Hpv Screening 06/10/2011 SHANNA LOCKETT DO V76.2 Cervical Cancer Screening (pap Smear) 06/10/2011 V72.31 Pig Machine Crane Operator Exam, Routine 06/10/2011 V73.81 Hpv Screening 06/10/2011 V76.2 Cervical Cancer Screening (pap Smear) 06/10/2011 V72.31 Pig Machine Crane Operator Exam, Routine 06/10/2011 V73.81 Hpv Screening 06/10/2011 V76.2 Cervical Cancer Screening (pap Smear) 06/10/2011 BINDU PALM MD V72.31 Pig Machine Crane Operator Exam, Routine 06/10/2011 BINDU PALM MD V73.81 Hpv Screening 06/10/2011 BINDU PALM MD V76.2 Cervical Cancer Screening (pap Smear) 06/10/2011 V72.31 Pig Machine Crane Operator Exam, Routine 06/10/2011 V73.81 Hpv Screening 06/10/2011 V76.2 Cervical Cancer Screening (pap Smear) 06/10/2011 V72.31 Pig Machine Crane Operator Exam, Routine 06/10/2011 V73.81 Hpv Screening 06/10/2011 V76.2 Cervical Cancer Screening (pap Smear) 06/10/2011 V72.31 Pig Machine Crane Operator Exam, Routine 06/10/2011 V73.81 Hpv Screening 06/10/2011 V76.2 Cervical Cancer Screening (pap Smear) 06/10/2011 V72.31 Pig Machine Crane Operator Exam, Routine 06/10/2011 V73.81 Hpv Screening 06/10/2011 V76.2 Cervical Cancer Screening (pap Smear) 06/10/2011 V72.31 Pig Machine Crane Operator Exam, Routine 06/10/2011 V73.81 Hpv Screening 06/10/2011 V76.2 Cervical Cancer Screening (pap Smear) 06/10/2011 V72.31 Pig Machine Crane Operator Exam, Routine 06/10/2011 V73.81 Hpv Screening 06/10/2011 V76.2 Cervical Cancer Screening (pap Smear) 06/10/2011 V72.31 Pig Machine Crane Operator Exam, Routine 06/10/2011 V73.81 Hpv Screening 06/10/2011 V76.2 Cervical Cancer Screening (pap Smear) 06/10/2011 BINDU PALM MD V72.31 Pig Machine Crane Operator Exam, Routine 06/10/2011 BINDU PALM MD V73.81 Hpv Screening 06/10/2011 BINDU PALM MD V76.2 Cervical Cancer Screening (pap Smear) 06/10/2011 BINDU PALM MD V72.31 Pig Machine Crane Operator Exam, Routine 06/10/2011 BINDU PALM MD V73.81 Hpv Screening 06/10/2011 BINDU PALM MD V76.2 Cervical Cancer Screening (pap Smear) 06/10/2011 GRANT LOCKETT DOA K V72.31 Pig Machine Crane Operator Exam, Routine 06/10/2011 GRANT LOCKETT DOA K V73.81 Hpv Screening 06/10/2011 GRANT LOCKETT DOA K V76.2 Cervical Cancer Screening (pap Smear) 06/10/2011 BINDU PALM MD V72.31 Pig Machine Crane Operator Exam, Routine 06/10/2011 BINDU PALM MD V73.81 Hpv Screening 06/10/2011 BINDU PALM MD V76.2 Cervical Cancer Screening (pap Smear) 06/10/2011 LOWELL MARIO APRNNDA S V72.31 Pig Machine Crane Operator Exam, Routine 06/10/2011 SHELBI SPRING TIER, CARLINE S V73.81 Hpv Screening 06/10/2011 SHELBI SPRING TIER, CARLINE S V76.2 Cervical Cancer Screening (pap Smear) 06/10/2011 SHELBI SPRING TIER, CARLINE S V72.31 Pig Machine Crane Operator Exam, Routine 06/10/2011 SHELBI SPRING TIER, CARLINE S V73.81 Hpv Screening 06/10/2011 SHELBI DEL TORO CARLINE S V76.2 Cervical Cancer Screening (pap Smear) 06/10/2011 LAURA BENNETT MD V72.31 Pig Machine Crane Operator Exam, Routine 06/10/2011 LAURA BENNETT MD V73.81 Hpv Screening 06/10/2011 LAURA BENNETT MD V76.2 Cervical Cancer Screening (pap Smear) 06/10/2011 ELIZABETH ROBIN MD V72.31 Pig Machine Crane Operator Exam, Routine 06/10/2011 ELIZABETH ROBIN MD V73.81 Hpv Screening 06/10/2011 ELIZABETH ROBIN MD V76.2 Cervical Cancer Screening (pap Smear) 06/10/2011 LAURA BENNETT MD V72.31 Pig Machine Crane Operator Exam, Routine 06/10/2011 LAURA BENNETT MD V73.81 Hpv Screening 06/10/2011 LAURA BENNETT MD V76.2 Cervical Cancer Screening (pap Smear) 06/10/2011 SHANNA LOCKETT DO V72.31 Pig Machine Crane Operator Exam, Routine 06/10/2011 SHANNA LOCKETT DO V73.81 Hpv Screening 06/10/2011 SHANNA LOCKETT DO V76.2 Cervical Cancer Screening (pap Smear) 06/10/2011 MARTÍNEZ MARY APRN N V72.31 Pig Machine Crane Operator Exam, Routine 06/10/2011 MARTÍNEZ MARY APRN N V73.81 Hpv Screening 06/10/2011 MARTÍNEZ MARY APRN N V76.2 Cervical Cancer Screening (pap Smear) 06/10/2011 BINDU PALM MD V72.31 Pig Machine Crane Operator Exam, Routine 06/10/2011 BINDU PALM MD V73.81 Hpv Screening 06/10/2011 BINDU PALM MD V76.2 Cervical Cancer Screening (pap Smear) 06/10/2011 MARTÍNEZ MARY APRN N V72.31 Pig Machine Crane Operator Exam, Routine 06/10/2011 MARTÍNEZ MARY APRN N V73.81 Hpv Screening 06/10/2011 MARTÍNEZ MARY APRN N V76.2 Cervical Cancer Screening (pap Smear) 06/10/2011 ANNEL JJ APRN V72.31 Pig Machine Crane Operator Exam, Routine 06/10/2011 ANNEL JJ APRN V73.81 Hpv Screening 06/10/2011 ANNEL JJ APRN V76.2 Cervical Cancer Screening (pap Smear) 06/10/2011 LAURA BENNETT MD V72.31 Pig Machine Crane Operator Exam, Routine 06/10/2011 LAURA BENNETT MD V73.81 Hpv Screening 06/10/2011 LAURA BENNETT MD V76.2 Cervical Cancer Screening (pap Smear) 06/10/2011 MADL SPRING TIER, DION L V72.31 Pig Machine Crane Operator Exam, Routine 06/10/2011 MADL SPRING TIER, DION L V73.81 Hpv Screening 06/10/2011 MADL SPRING TIER, DION L V76.2 Cervical Cancer Screening (pap Smear) 06/10/2011 LAURA BENNETT MD V72.31 Pig Machine Crane Operator Exam, Routine 06/10/2011 LAURA BENNETT MD V73.81 Hpv Screening 06/10/2011 LAURA BENNETT MD V76.2 Cervical Cancer Screening (pap Smear) 06/10/2011 MADL SPRING TIER, DION L V72.31 Pig Machine Crane Operator Exam, Routine 06/10/2011 MADL SPRING TIER, DION L V73.81 Hpv Screening 06/10/2011 MADL SPRING TIER, DION L V76.2 Cervical Cancer Screening (pap Smear) 06/10/2011 SHANNA LOCKETT DO V72.31 Pig Machine Crane Operator Exam, Routine 06/10/2011 SHANNA LOCKETT DO V73.81 Hpv Screening 06/10/2011 SHANNA LOCKETT DO V76.2 Cervical Cancer Screening (pap Smear) 06/10/2011 SHANNA LOCKETT DO K V72.31 Pig Machine Crane Operator Exam, Routine 06/10/2011 SHANNA LOCKETT DO V73.81 Hpv Screening 06/10/2011 SHANNA LOCKETT DO V76.2 Cervical Cancer Screening (pap Smear) 06/10/2011 MADL SPRING TIER, DION L V72.31 Pig Machine Crane Operator Exam, Routine 06/10/2011 MADL SPRING TIER, DION L V73.81 Hpv Screening 06/10/2011 MADL SPRING TIER, DION L V76.2 Cervical Cancer Screening (pap Smear) 06/10/2011 MADL SPRING TIER, DION L V72.31 Pig Machine Crane Operator Exam, Routine 06/10/2011 MADL SPRING TIER, DION L V73.81 Hpv Screening 06/10/2011 MADL SPRING TIER, DION L V76.2 Cervical Cancer Screening (pap Smear) 06/10/2011 MADL SPRING TIER, DION L V72.31 Pig Machine Crane Operator Exam, Routine 06/10/2011 MADL SPRING TIER, DION L V73.81 Hpv Screening 06/10/2011 MADL SPRING TIER, DION L V76.2 Cervical Cancer Screening (pap Smear) 06/10/2011 LOCKETT DO, SHANNA K V72.31 Pig Machine Crane Operator Exam, Routine 06/10/2011 LOCKETT DO, SHANNA K V73.81 Hpv Screening 06/10/2011 LOCKETT DO, SHANNA K V76.2 Cervical Cancer Screening (pap Smear) 06/10/2011 MADL SPRING TIER, DION L V72.31 Pig Machine Crane Operator Exam, Routine 06/10/2011 MADL SPRING TIER, DION L V73.81 Hpv Screening 06/10/2011 MADL SPRING TIER, DION L V76.2 Cervical Cancer Screening (pap Smear) 06/10/2011 MADL SPRING TIER, DION L V72.31 Pig Machine Crane Operator Exam, Routine 06/10/2011 MADL SPRING TIER, DION L V73.81 Hpv Screening 06/10/2011 MADL SPRING TIER, DION L V76.2 Cervical Cancer Screening (pap Smear) 06/10/2011 MADL SPRING TIER, DION L V72.31 Pig Machine Crane Operator Exam, Routine 06/10/2011 MADL SPRING TIER, DION L V73.81 Hpv Screening 06/10/2011 MADL SPRING TIER, DION L V76.2 Cervical Cancer Screening (pap Smear) 06/10/2011 MADL SPRING TIER, DION L V72.31 Pig Machine Crane Operator Exam, Routine 06/10/2011 MADL SPRING TIER, DION L V73.81 Hpv Screening 06/10/2011 MADL SPRING TIER, DION L V76.2 Cervical Cancer Screening (pap Smear) 06/10/2011 MADL SPRING TIER, DION L V72.31 Pig Machine Crane Operator Exam, Routine 06/10/2011 MADL SPRING TIER, DION L V73.81 Hpv Screening 06/10/2011 MADL SPRING TIER, DION L V76.2 Cervical Cancer Screening (pap Smear) 06/10/2011 MADL SPRING TIER, DION L V72.31 Pig Machine Crane Operator Exam, Routine 06/10/2011 MADL SPRING TIER, DION L V73.81 Hpv Screening 06/10/2011 MADL SPRING TIER, DION L V76.2 Cervical Cancer Screening (pap Smear) 06/10/2011 MADL SPRING TIER, DION L V72.31 Pig Machine Crane Operator Exam, Routine 06/10/2011 MADL SPRING TIER, DION L V73.81 Hpv Screening 06/10/2011 MADL SPRING TIER, DION L V76.2 Cervical Cancer Screening (pap Smear) 06/10/2011 MADL SPRING TIER, DION L V72.31 Pig Machine Crane Operator Exam, Routine 06/10/2011 MADL SPRING TIER, DION L V73.81 Hpv Screening 06/10/2011 MADL SPRING TIER, DION L V76.2 Cervical Cancer Screening (pap Smear) 06/10/2011 MADL SPRING TIER, DION L V72.31 Pig Machine Crane Operator Exam, Routine 06/10/2011 MADL SPRING TIER, DION L V73.81 Hpv Screening 06/10/2011 MADL SPRING TIER, DION L V76.2 Cervical Cancer Screening (pap Smear) 06/10/2011 SHANNA LOCKETT DO K V72.31 Pig Machine Crane Operator Exam, Routine 06/10/2011 GRANT LOCKETT DOA K V73.81 Hpv Screening 06/10/2011 LOCKETT GRANT CARRANZAA K V76.2 Cervical Cancer Screening (pap Smear) 06/10/2011 BARRY CASTELLANO APRN R V72.31 Pig Machine Crane Operator Exam, Routine 06/10/2011 BARRY CASTELLANO APRN R V73.81 Hpv Screening 06/10/2011 BARRY CASTELLANO APRN R V76.2 Cervical Cancer Screening (pap Smear) 06/10/2011 GRANT LOCKETT DOA K V72.31 Pig Machine Crane Operator Exam, Routine 06/10/2011 GRANT LOCKETT DOA K [...] HUMAN PAPILLOMA VIRUS INFECTION 07/21/2011 MARIEE GRISELDAERO SPRING TIER, MARTÍNEZ N 795.01 Cerv Pap Smear (+) [...] Atyp Squamous Cells Undetermined Signif 07/21/2011 MADL SPRING TIER, DION L 079.4 HUMAN PAPILLOMA VIRUS INFECTION 07/21/2011 MADL SPRING TIER, DION L 795.01 Cerv Pap Smear (+) Atyp Squamous Cells Undetermined Signif 07/21/2011 MADL SPRING TIER, DION L 079.4 HUMAN PAPILLOMA VIRUS INFECTION 07/21/2011 MADL SPRING TIER, DION L 795.01 Cerv Pap Smear (+) Atyp Squamous Cells Undetermined Signif 07/21/2011 MADL SPRING TIER, DION L 079.4 HUMAN PAPILLOMA VIRUS INFECTION 07/21/2011 MADL SPRING TIER, DION L 795.01 Cerv Pap Smear (+) Atyp Squamous Cells Undetermined Signif 07/21/2011 LEVY CARRANZA SHANNA K 079.4 HUMAN PAPILLOMA VIRUS INFECTION 07/21/2011 LEVY CARRANZA SHANNA K 795.01 Cerv Pap Smear (+) Atyp Squamous Cells Undetermined Signif 07/21/2011 MADL SPRING TIER, DION L 079.4 HUMAN PAPILLOMA VIRUS INFECTION 07/21/2011 MADL SPRING TIER, DION L 795.01 Cerv Pap Smear (+) Atyp Squamous Cells Undetermined Signif 07/21/2011 MADL SPRING TIER, DION L 079.4 HUMAN PAPILLOMA VIRUS INFECTION 07/21/2011 MADL SPRING TIER, DION L 795.01 Cerv Pap Smear (+) Atyp Squamous Cells Undetermined Signif 07/21/2011 MADL SPRING TIER, DION L 079.4 HUMAN PAPILLOMA VIRUS INFECTION 07/21/2011 MADL SPRING TIER, DION L 795.01 Cerv Pap Smear (+) Atyp Squamous Cells Undetermined Signif 07/21/2011 MADL SPRING TIER, DION L 079.4 HUMAN PAPILLOMA VIRUS INFECTION 07/21/2011 BRITTANY SPRING TIER, DION L 795.01 Cerv Pap Smear (+) Atyp Squamous Cells Undetermined Signif 07/21/2011 LAURE SOTO APRNA L 079.4 HUMAN PAPILLOMA VIRUS INFECTION 07/21/2011 BRITTANY SPRING TIER, DION L 795.01 Cerv Pap Smear (+) Atyp Squamous Cells Undetermined Signif 07/21/2011 LAURE SOTO APRNA L 079.4 HUMAN PAPILLOMA VIRUS INFECTION 07/21/2011 BRITTANY DEL TORO, DION L 795.01 Cerv Pap Smear (+) Atyp Squamous Cells Undetermined Signif 07/21/2011 LAURE SOTO APRNA L 079.4 HUMAN PAPILLOMA VIRUS INFECTION 07/21/2011 BRITTANY SPRING TIER, DION L 795.01 Cerv Pap Smear (+) [...] BENNETT MD V06.1 TDAP DX 05/13/2012 MADL SPRING TIER, DION L V03.82 Ppv23 (pneumovax) Dx 05/13/2012 MADL SPRING TIER, DION L V06.1 Tdap Dx 05/13/2012 LAURA BENNETT MD V03.82 Ppv23 (pneumovax) Dx 05/13/2012 LAUAR BENNETT MD V06.1 Tdap Dx 05/13/2012 MADL SPRING TIER, DION L V03.82 Ppv23 (pneumovax) Dx 05/13/2012 MADL SPRING TIER, DION L V06.1 Tdap Dx 05/13/2012 LOCKETT DO, SHANNA K V03.82 Ppv23 (pneumovax) Dx 05/13/2012 LOCKETT DO, SHANNA K V06.1 Tdap Dx 05/13/2012 LOCKETT DO, SHANNA K V03.82 Ppv23 (pneumovax) Dx 05/13/2012 LOCKETT DO, SHANNA K V06.1 Tdap Dx 05/13/2012 MADL SPRING TIER, DION L V03.82 Ppv23 (pneumovax) Dx 05/13/2012 MADL SPRING TIER, DION L V06.1 Tdap Dx 05/13/2012 MADL SPRING TIER, DION L V03.82 Ppv23 (pneumovax) Dx 05/13/2012 MADL SPRING TIER, DION L V06.1 Tdap Dx 05/13/2012 MADL SPRING TIER, DION L V03.82 Ppv23 (pneumovax) Dx 05/13/2012 MADL SPRING TIER, DION L V06.1 Tdap Dx 05/13/2012 LOCKETT DO, SHANNA K V03.82 Ppv23 (pneumovax) Dx 05/13/2012 LOCKETT DO, SHANNA K V06.1 Tdap Dx 05/13/2012 MADL SPRING TIER, DION L V03.82 Ppv23 (pneumovax) Dx 05/13/2012 MADL SPRING TIER, DION L V06.1 Tdap Dx 05/13/2012 MADL SPRING TIER, DION L V03.82 Ppv23 (pneumovax) Dx 05/13/2012 MADL SPRING TIER, DION L V06.1 Tdap Dx 05/13/2012 MADL SPRING TIER, DION L V03.82 Ppv23 (pneumovax) Dx 05/13/2012 MADL SPRING TIER, DION L V06.1 Tdap Dx 05/13/2012 MADL SPRING TIER, DION L V03.82 Ppv23 (pneumovax) Dx 05/13/2012 MADL SPRING TIER, DION L V06.1 Tdap Dx 05/13/2012 MADL SPRING TIER, DION L V03.82 Ppv23 (pneumovax) Dx 05/13/2012 MADL SPRING TIER, DION L V06.1 Tdap Dx 05/13/2012 MADL SPRING TIER, DION L V03.82 Ppv23 (pneumovax) Dx 05/13/2012 MADL SPRING TIER, DION L V06.1 Tdap Dx 05/13/2012 MADL SPRING TIER, DION L V03.82 Ppv23 (pneumovax) Dx 05/13/2012 MADL SPRING TIER, DION L V06.1 Tdap Dx 05/13/2012 MADL SPRING TIER, DION L V03.82 Ppv23 (pneumovax) Dx 05/13/2012 MADL SPRING TIER, DION L V06.1 Tdap Dx 05/13/2012 MADL SPRING TIER, DION L V03.82 Ppv23 (pneumovax) Dx 05/13/2012 MADL SPRING TIER, DION L V06.1 Tdap Dx 05/13/2012 LOCKETT DO, SHANNA K V03.82 Ppv23 (pneumovax) Dx 05/13/2012 LOCKETT DO, SHANNA K V06.1 Tdap Dx 05/13/2012 GRAY SPRING TIER, BARRY R V03.82 Ppv23 (pneumovax) Dx 05/13/2012 [...] MOREIRA, BINDU Hidalgo 786.07 WHEEZING 10/26/2012 SHELBI SPRING TIER, CARLINE S 466.0 BRONCHITIS, ACUTE 10/26/2012 SHELBI SPRING TIER, CARLINE S 786.07 WHEEZING 10/26/2012 SHELBI SPRING TIER, CARLINE S 466.0 BRONCHITIS, ACUTE 10/26/2012 SHELBI SPRING TIER, CARLINE S 786.07 WHEEZING 10/26/2012 LAURA BENNETT MD 466.0 BRONCHITIS, ACUTE 10/26/2012 LAURA BENNETT MD 786.07 WHEEZING 10/26/2012 LOBITO MOREIRA, ELIZABETH N 466.0 BRONCHITIS, ACUTE 10/26/2012 LOBITO MOREIRA, ELIZABETH N 786.07 WHEEZING 10/26/2012 LAURA BENNETT MD 466.0 BRONCHITIS, ACUTE 10/26/2012 LAURA BENNETT MD 786.07 WHEEZING 10/26/2012 LOCKETT DO, SHANNA K 466.0 BRONCHITIS, ACUTE 10/26/2012 LOCKETT DO, SHANNA K 786.07 WHEEZING 10/26/2012 MARIEE CASHERO SPRING TIER, MARTÍNEZ N 466.0 BRONCHITIS, ACUTE 10/26/2012 MARIEE CASHERO SPRING TIER, MARTÍNEZ N 786.07 WHEEZING 10/26/2012 NÉSTOR MOREIRA, BINDU Hidalgo 466.0 BRONCHITIS, ACUTE 10/26/2012 BINDU PALM MD 786.07 WHEEZING 10/26/2012 MARIEE CASHERO SPRING TIER, MARTÍNEZ N 466.0 BRONCHITIS, ACUTE 10/26/2012 MARIEE CASHERO SPRING TIER, MARTÍNEZ N 786.07 WHEEZING 10/26/2012 АННА DEL TORO, ANNEL FRANCES 466.0 BRONCHITIS, ACUTE 10/26/2012 АННА SPRING TIER, ANNEL FRANCES 786.07 WHEEZING 10/26/2012 MADL SPRING TIER, DION L 466.0 BRONCHITIS, ACUTE 10/26/2012 MADL SPRING TIER, DION L 786.07 WHEEZING 10/26/2012 SABRINA MOREIRA, LAURA 466.0 BRONCHITIS, ACUTE 10/26/2012 LAURA BENNETT MD 786.07 WHEEZING 10/26/2012 MADL SPRING TIER, DION L 466.0 BRONCHITIS, ACUTE 10/26/2012 MADL SPRING TIER, DION L 786.07 WHEEZING 10/26/2012 LOCKETT DO, SHANNA K 466.0 BRONCHITIS, ACUTE 10/26/2012 LOCKETT DO, SHANNA K 786.07 WHEEZING 10/26/2012 LOCKETT DO, SHANNA K 466.0 BRONCHITIS, ACUTE 10/26/2012 LOCKETT DO, SHANNA K 786.07 WHEEZING 10/26/2012 MADL SPRING TIER, DION L 466.0 BRONCHITIS, ACUTE 10/26/2012 MADL SPRING TIER, DION L 786.07 WHEEZING 10/26/2012 MADL SPRING TIER, DION L 466.0 BRONCHITIS, ACUTE 10/26/2012 MADL SPRING TIER, DION L 786.07 WHEEZING 10/26/2012 MADL SPRING TIER, DION L 466.0 BRONCHITIS, ACUTE 10/26/2012 MADL SPRING TIER, DION L 786.07 WHEEZING 10/26/2012 LOCKETT DO, SHANNA K 466.0 BRONCHITIS, ACUTE 10/26/2012 LOCKETT DO, SHANNA K 786.07 WHEEZING 10/26/2012 MADL SPRING TIER, DION L 466.0 BRONCHITIS, ACUTE 10/26/2012 MADL SPRING TIER, DION L 786.07 WHEEZING 10/26/2012 MADL SPRING TIER, DION L 466.0 BRONCHITIS, ACUTE 10/26/2012 MADL SPRING TIER, DION L 786.07 WHEEZING 10/26/2012 MADL SPRING TIER, DION L 466.0 BRONCHITIS, ACUTE 10/26/2012 MADL SPRING TIER, DION L 786.07 WHEEZING 10/26/2012 MADL SPRING TIER, DION L 466.0 BRONCHITIS, ACUTE 10/26/2012 MADL SPRING TIER, DION L 786.07 WHEEZING 10/26/2012 MADL SPRING TIER, DION L 466.0 BRONCHITIS, ACUTE 10/26/2012 MADL SPRING TIER, DION L 786.07 WHEEZING 10/26/2012 MADL SPRING TIER, DION L 466.0 BRONCHITIS, ACUTE 10/26/2012 MADL SPRING TIER, DION L 786.07 WHEEZING 10/26/2012 MADL SPRING TIER, DION L 466.0 BRONCHITIS, ACUTE 10/26/2012 MADL SPRING TIER, DION L 786.07 WHEEZING 10/26/2012 MADL SPRING TIER, DION L 466.0 BRONCHITIS, ACUTE 10/26/2012 MADL SPRING TIER, DION L 786.07 WHEEZING 10/26/2012 MADL SPRING TIER, DION L 466.0 BRONCHITIS, ACUTE 10/26/2012 MADL SPRING TIER, DION L 786.07 WHEEZING 10/26/2012 LOCKETT DO SHANNA K 466.0 BRONCHITIS, ACUTE 10/26/2012 GRANT LOCKETT DOA K 786.07 WHEEZING 10/26/2012 CASTELLANO SPRING TIER, BARRY R 466.0 BRONCHITIS, ACUTE 10/26/2012 CASTELLANO SPRING TIER, BARRY R 786.07 WHEEZING 10/26/2012 LOCKETT DO, [...] MARY APRN 627.8 PERIMENOPAUSE 11/07/2012 JAYLENE PURDY SPRING TIER, MARTÍNEZ N V73.81 HPV SCREENING 11/07/2012 JAYLENE [...] CERVICAL CANCER SCREENING (PAP SMEAR) 11/07/2012 MADL SPRING TIER, DION L 627.8 PERIMENOPAUSE 11/07/2012 MADL SPRING TIER, DION L V73.81 HPV SCREENING 11/07/2012 MADL SPRING TIER, DION L V76.2 CERVICAL CANCER SCREENING (PAP SMEAR) 11/07/2012 MADL SPRING TIER, DION L 627.8 PERIMENOPAUSE 11/07/2012 MADL SPRING TIER, DION L V73.81 HPV SCREENING 11/07/2012 MADL SPRING TIER, DION L V76.2 CERVICAL CANCER SCREENING (PAP SMEAR) 11/07/2012 MADL SPRING TIER, DION L 627.8 PERIMENOPAUSE 11/07/2012 MADL SPRING TIER, DION L V73.81 HPV SCREENING 11/07/2012 MADL SPRING TIER, DION L V76.2 CERVICAL CANCER SCREENING (PAP SMEAR) 11/07/2012 LOCKETT SHANNA CARRANZA K 627.8 PERIMENOPAUSE 11/07/2012 LOCKETT GRANT CARRANZAA K V73.81 HPV SCREENING 11/07/2012 LOCKETT DOGRANTA K V76.2 CERVICAL CANCER SCREENING (PAP SMEAR) 11/07/2012 MADL SPRING TIER, DION L 627.8 PERIMENOPAUSE 11/07/2012 MADL SPRING TIER, DION L V73.81 HPV SCREENING 11/07/2012 MADL SPRING TIER, DION L V76.2 CERVICAL CANCER SCREENING (PAP SMEAR) 11/07/2012 MADL SPRING TIER, DION L 627.8 PERIMENOPAUSE 11/07/2012 MADL SPRING TIER, DION L V73.81 HPV SCREENING 11/07/2012 MADL SPRING TIER, DION L V76.2 CERVICAL CANCER SCREENING (PAP SMEAR) 11/07/2012 MADL SPRING TIER, DION L 627.8 PERIMENOPAUSE 11/07/2012 MADL SPRING TIER, DION L V73.81 HPV SCREENING 11/07/2012 MADL SPRING TIER, DION L V76.2 CERVICAL CANCER SCREENING (PAP SMEAR) 11/07/2012 MADL SPRING TIER, DION L 627.8 PERIMENOPAUSE 11/07/2012 MADL SPRING TIER, DION L V73.81 HPV SCREENING 11/07/2012 MADL SPRING TIER, DION L V76.2 CERVICAL CANCER SCREENING (PAP SMEAR) 11/07/2012 MADL SPRING TIER, DION L 627.8 PERIMENOPAUSE 11/07/2012 MADL SPRING TIER, DION L V73.81 HPV SCREENING 11/07/2012 MADL SPRING TIER, DION L V76.2 CERVICAL CANCER SCREENING (PAP SMEAR) 11/07/2012 MADL SPRING TIER, DION L 627.8 PERIMENOPAUSE 11/07/2012 MADL SPRING TIER, DION L V73.81 HPV SCREENING 11/07/2012 MADL SPRING TIER, DION L V76.2 CERVICAL CANCER SCREENING (PAP SMEAR) 11/07/2012 MADL SPRING TIER, DION L 627.8 PERIMENOPAUSE 11/07/2012 MADL SPRING TIER, DION L V73.81 HPV SCREENING 11/07/2012 MADL SPRING TIER, DION L V76.2 CERVICAL CANCER SCREENING (PAP SMEAR) 11/07/2012 MADL SPRING TIER, DION L 627.8 PERIMENOPAUSE 11/07/2012 MADL SPRING TIER, DION L V73.81 HPV SCREENING 11/07/2012 MADL SPRING TIER, DION L V76.2 CERVICAL CANCER SCREENING (PAP SMEAR) 11/07/2012 MADL SPRING TIER, DION L 627.8 PERIMENOPAUSE 11/07/2012 MADL SPRING TIER, DION L V73.81 HPV SCREENING 11/07/2012 MADL SPRING TIER, DION L V76.2 CERVICAL CANCER SCREENING (PAP [...] GLANDULAR CELLS OF UNDETERMINED SIGNIFICANCE) 12/05/2012 MADL SPRING TIER, DION L 788.1 DYSURIA 12/05/2012 MADL SPRING TIER, DION L 795.00 ABNORMAL PAP - AGCUS (ATYPICAL GLANDULAR CELLS OF UNDETERMINED SIGNIFICANCE) 12/05/2012 LAURA BENNETT MD 788.1 DYSURIA 12/05/2012 LAURA BENNETT MD 795.00 ABNORMAL PAP - AGCUS (ATYPICAL GLANDULAR CELLS OF UNDETERMINED SIGNIFICANCE ) 12/05/2012 MADL SPRING TIER, DION L 788.1 DYSURIA 12/05/2012 MADL SPRING TIER, DION L 795.00 ABNORMAL PAP - AGCUS (ATYPICAL GLANDULAR CELLS OF UNDETERMINED SIGNIFICANCE) 12/05/2012 LOCKETT DO, SHANNA K 788.1 DYSURIA 12/05/2012 LOCKETT DO, SHANNA K 795.00 ABNORMAL PAP - AGCUS (ATYPICAL GLANDULAR CELLS OF UNDETERMINED SIGNIFICANCE) 12/05/2012 LOCKETT DO, SHANNA K 788.1 DYSURIA 12/05/2012 LOCKETT DO, SHANNA K 795.00 ABNORMAL PAP - AGCUS (ATYPICAL GLANDULAR CELLS OF UNDETERMINED SIGNIFICANCE) 12/05/2012 MADL SPRING TIER, DION L 788.1 DYSURIA 12/05/2012 MADL SPRING TIER, DINO L 795.00 ABNORMAL PAP - AGCUS (ATYPICAL GLANDULAR CELLS OF UNDETERMINED SIGNIFICANCE) 12/05/2012 MADL SPRING TIER, DION L 788.1 DYSURIA 12/05/2012 MADL SPRING TIER, DION L 795.00 ABNORMAL PAP - AGCUS (ATYPICAL GLANDULAR CELLS OF UNDETERMINED SIGNIFICANCE) 12/05/2012 MADL SPRING TIER, DION L 788.1 DYSURIA 12/05/2012 MADL SPRING TIER, DION L 795.00 ABNORMAL PAP - AGCUS (ATYPICAL GLANDULAR CELLS OF UNDETERMINED SIGNIFICANCE) 12/05/2012 LOCKETT DO, SHANNA K 788.1 DYSURIA 12/05/2012 LOCKETT DO, SHANNA K 795.00 ABNORMAL PAP - AGCUS (ATYPICAL GLANDULAR CELLS OF UNDETERMINED SIGNIFICANCE) 12/05/2012 MADL SPRING TIER, DION L 788.1 DYSURIA 12/05/2012 MADL SPRING TIER, DION L 795.00 ABNORMAL PAP - AGCUS (ATYPICAL GLANDULAR CELLS OF UNDETERMINED SIGNIFICANCE) 12/05/2012 MADL SPRING TIER, DION L 788.1 DYSURIA 12/05/2012 MADL SPRING TIER, DION L 795.00 ABNORMAL PAP - AGCUS (ATYPICAL GLANDULAR CELLS OF UNDETERMINED SIGNIFICANCE) 12/05/2012 MADL SPRING TIER, DION L 788.1 DYSURIA 12/05/2012 MADL SPRING TIER, DION L 795.00 ABNORMAL PAP - AGCUS (ATYPICAL GLANDULAR CELLS OF UNDETERMINED SIGNIFICANCE) 12/05/2012 MADL SPRING TIER, DION L 788.1 DYSURIA 12/05/2012 MADL SPRING TIER, DION L 795.00 ABNORMAL PAP - AGCUS (ATYPICAL GLANDULAR CELLS OF UNDETERMINED SIGNIFICANCE) 12/05/2012 MADL SPRING TIER, DION L 788.1 DYSURIA 12/05/2012 MADL SPRING TIER, DION L 795.00 ABNORMAL PAP - AGCUS (ATYPICAL GLANDULAR CELLS OF UNDETERMINED SIGNIFICANCE) 12/05/2012 MADL SPRING TIER, DION L 788.1 DYSURIA 12/05/2012 MADL SPRING TIER, DION L 795.00 ABNORMAL PAP - AGCUS (ATYPICAL GLANDULAR CELLS OF UNDETERMINED SIGNIFICANCE) 12/05/2012 MADL SPRING TIER, DION L 788.1 DYSURIA 12/05/2012 MADL SPRING TIER, DION L 795.00 ABNORMAL PAP - AGCUS (ATYPICAL GLANDULAR CELLS OF UNDETERMINED SIGNIFICANCE) 12/05/2012 MADL SPRING TIER, DION L 788.1 DYSURIA 12/05/2012 MADL SPRING TIER, DION L 795.00 ABNORMAL PAP - AGCUS (ATYPICAL GLANDULAR CELLS OF UNDETERMINED SIGNIFICANCE) 12/05/2012 MADL SPRING TIER, DION L 788.1 DYSURIA 12/05/2012 DION SOTO APRN L 795.00 ABNORMAL PAP - AGCUS (ATYPICAL GLANDULAR CELLS OF UNDETERMINED SIGNIFICANCE) 12/05/2012 GRANT LOCKETT DOA K 788.1 DYSURIA 12/05/2012 GRANT LOCKETT DOA K 795.00 ABNORMAL PAP - AGCUS (ATYPICAL GLANDULAR CELLS OF UNDETERMINED SIGNIFICANCE) 12/05/2012 CASTELLANO SPRING TIERJACKELINEBARRY R 788.1 DYSURIA 12/05/2012 CASTELLANO SPRING TIER, BARRY R 795.00 ABNORMAL PAP - AGCUS [...] BINDU PALM MD 477.9 RHINITIS 06/02/2013 SHELBI SPRING TIER, CARLINE S 477.9 RHINITIS 06/02/2013 SHELBI SPRING TIER, CARLINE S 477.9 RHINITIS 06/02/2013 SABRINA MOREIRA, LAURA 477.9 RHINITIS 06/02/2013 LOBITO MOREIRA, ELIZABETH N 477.9 RHINITIS 06/02/2013 SABRINA MOREIRA, LAURA 477.9 RHINITIS 06/02/2013 LOCKETT DO, SHANNA K 477.9 RHINITIS 06/02/2013 MARIEE CASHERO SPRING TIER, MARTÍNEZ N 477.9 RHINITIS 06/02/2013 NÉSTOR MOREIRA, BINDU Hidalgo 477.9 RHINITIS 06/02/2013 MARIEE CASHERO SPRING TIER, MARTÍNEZ N 477.9 RHINITIS 06/02/2013 АННА DEL TORO, ANNEL YVROSE 477.9 RHINITIS 06/02/2013 MADL SPRING TIER, DION L 477.9 RHINITIS 06/02/2013 SABRINA MOREIRA, LAURA 477.9 RHINITIS 06/02/2013 MADL SPRING TIER, DION L 477.9 RHINITIS 06/02/2013 LOCKETT DO, SHANNA K 477.9 RHINITIS 06/02/2013 LOCKETT DO, SHANNA K 477.9 RHINITIS 06/02/2013 MADL SPRING TIER, DION L 477.9 RHINITIS 06/02/2013 MADL SPRING TIER, DION L 477.9 RHINITIS 06/02/2013 MADL SPRING TIER, DION L 477.9 RHINITIS 06/02/2013 LOCKETT DO, SHANNA K 477.9 RHINITIS 06/02/2013 MADL SPRING TIER, DION L 477.9 RHINITIS 06/02/2013 MADL SPRING TIER, DION L 477.9 RHINITIS 06/02/2013 MADL SPRING TIER, DION L 477.9 RHINITIS 06/02/2013 MADL SPRING TIER, DION L 477.9 RHINITIS 06/02/2013 MADL SPRING TIER, DION L 477.9 RHINITIS 06/02/2013 MADL SPRING TIER, DION L 477.9 RHINITIS 06/02/2013 MADL SPRING TIER, DION L 477.9 RHINITIS 06/02/2013 MADL SPRING TIER, DION L 477.9 RHINITIS 06/02/2013 MADL SPRING TIER, DION L 477.9 RHINITIS 06/02/2013 LOCKETT DO, SHANNA K 477.9 RHINITIS 06/02/2013 CASTELLANO SPRING TIER, BARRY R 477.9 RHINITIS 06/02/2013 LOCKETT DO, SHANNA K 477.9 RHINITIS 06/21/2013 BINDU PALM MD 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 06/21/2013 BINDU PALM MD 799.2 anxiety 06/21/2013 SHANNA LOCKETT DO [...] OTHER SPECIFIED FORMS OF TREMOR 06/21/2013 MARTÍNEZ AMRY APRN N 799.2 anxiety 06/21/2013 BINDU PALM MD 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 06/21/2013 BINDU PALM MD 799.2 anxiety 06/21/2013 JAYLENE PURDY SPRING TIER, MARTÍNEZ N 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 06/21/2013 JAYLENE PURDY APRN, MARTÍNEZ N 799.2 anxiety 06/21/2013 АННА DE LUNANANNEL 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 06/21/2013 АННА DE LUNANANNEL 799.2 anxiety 06/21/2013 MADL SPRING TIER, DION L 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 06/21/2013 MADL SPRING TIER, DION L 799.2 anxiety 06/21/2013 LAURA BENNETT MD 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 06/21/2013 LAURA BENNETT MD 799.2 anxiety 06/21/2013 MADL SPRING TIER, DION L 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 06/21/2013 MADL SPRING TIER, DION L 799.2 anxiety 06/21/2013 LOCKETT DO, SHANNA K 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 06/21/2013 LOCKETT DO, SHANNA K 799.2 anxiety 06/21/2013 LOCKETT DO, SHANNA K 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 06/21/2013 LOCKETT DO, SHANNA K 799.2 anxiety 06/21/2013 MADL SPRING TIER, DION L 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 06/21/2013 MADL SPRING TIER, DION L 799.2 anxiety 06/21/2013 MADL SPRING TIER, DION L 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 06/21/2013 MADL SPRING TIER, DION L 799.2 anxiety 06/21/2013 MADL SPRING TIER, DION L 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 06/21/2013 MADL SPRING TIER, DION L 799.2 anxiety 06/21/2013 LOCKETT DO, SHANNA K 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 06/21/2013 LOCKETT DO, SHANNA K 799.2 anxiety 06/21/2013 MADL SPRING TIER, DION L 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 06/21/2013 MADL SPRING TIER, DION L 799.2 anxiety 06/21/2013 MADL SPRING TIER, DION L 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 06/21/2013 MADL SPRING TIER, DION L 799.2 anxiety 06/21/2013 MADL SPRING TIER, DION L 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 06/21/2013 MADL SPRING TIER, DION L 799.2 anxiety 06/21/2013 MADL SPRING TIER, DION L 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 06/21/2013 MADL SPRING TIER, DION L 799.2 anxiety 06/21/2013 MADL SPRING TIER, DION L 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 06/21/2013 MADL SPRING TIER, DION L 799.2 anxiety 06/21/2013 MADL SPRING TIER, DION L 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 06/21/2013 MADL SPRING TIER, DION L 799.2 anxiety 06/21/2013 MADL SPRING TIER, DION L 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 06/21/2013 MADL SPRING TIER, DION L 799.2 anxiety 06/21/2013 MADL SPRING TIER, DION L 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 06/21/2013 MADL SPRING TIER, DION L 799.2 anxiety 06/21/2013 MADL SPRING TIER, DION L 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 06/21/2013 MADL SPRING TIER, DION L 799.2 anxiety 06/21/2013 LOCKETT DO, SHANNA K 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 06/21/2013 LOCKETT DO, SHANNA K 799.2 anxiety 06/21/2013 CASTELLANO SPRING TIER, BARRY R 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81 FLU SHOT 07/18/2013 JAYLENE CASHUMM SPRING TIER, MARTÍNEZ N V04.81 FLU SHOT 07/18/2013 BINDU PALM MD V04.81 FLU SHOT 07/18/2013 JAYLENE PURDY SPRING TIER, MARTÍNEZ N V04.81 FLU SHOT 07/18/2013 ANNEL JJ APRN V04.81 FLU SHOT 07/18/2013 MADL SPRING TIER, DION L V04.81 FLU SHOT 07/18/2013 LAURA BENNETT MD V04.81 FLU SHOT 07/18/2013 MADL SPRING TIER, DION L V04.81 FLU SHOT 07/18/2013 LOCKETT DOSHANNA K V04.81 FLU SHOT 07/18/2013 LOCKETT DOSHANNA K V04.81 FLU SHOT 07/18/2013 MADL SPRING TIER, DION L V04.81 FLU SHOT 07/18/2013 MADL SPRING TIER, DION L V04.81 FLU SHOT 07/18/2013 MADL SPRING TIER, DION L V04.81 FLU SHOT 07/18/2013 LOCKETT DOSHANNA K V04.81 FLU SHOT 07/18/2013 MADL SPRING TIER, DION L V04.81 FLU SHOT 07/18/2013 MADL SPRING TIER, DION L V04.81 FLU SHOT 07/18/2013 MADL SPRING TIER, DION L V04.81 FLU SHOT 07/18/2013 MADL SPRING TIER, DION L V04.81 FLU SHOT 07/18/2013 MADL SPRING TIER, DION L V04.81 FLU SHOT 07/18/2013 MADL SPRING TIER, DION L V04.81 FLU SHOT 07/18/2013 MADL SPRING TIER, DION L V04.81 FLU SHOT 07/18/2013 MADL SPRING TIER, DION L V04.81 FLU SHOT 07/18/2013 MADL SPRING TIER, DION L V04.81 FLU SHOT 07/18/2013 LOCKETT DO, SHANNA K V04.81 FLU SHOT 07/18/2013 CASTELLANO SPRING TIER, BARRY R V04.81 FLU SHOT 07/18/2013 LOCKETT DO, SHANNA K V04.81 FLU SHOT 09/07/2013 SHELBI SPRING TIER, CARLINE S 216.9 MOLE/NEVUS - SITE UNSPECIFIED 09/07/2013 SHELBI SPRING TIER, CARLINE S 511.0 PLEURISY NOS 09/07/2013 SHELBI SPRING TIER, CARLINE S 216.9 MOLE/NEVUS - SITE UNSPECIFIED 09/07/2013 SHELBI SPRING TIER, CARLINE S 511.0 PLEURISY NOS 09/07/2013 LAURA [...] K 511.0 PLEURISY NOS 09/07/2013 JAYLENE PURDY SPRING TIER, MARTÍNEZ N 216.9 MOLE/NEVUS - SITE UNSPECIFIED 09/07/2013 JAYLENE PURDY SPRING TIER, MARTÍNEZ N 511.0 PLEURISY NOS 09/07/2013 BINDU PALM MD 216.9 MOLE/NEVUS - SITE UNSPECIFIED 09/07/2013 BINDU PALM MD 511.0 PLEURISY NOS 09/07/2013 MARIEE CASHERO SPRING TIER, MARTÍNEZ N 216.9 MOLE/NEVUS - SITE UNSPECIFIED 09/07/2013 MARIEE CASHERO SPRING TIER, MARTÍNEZ N 511.0 PLEURISY NOS 09/07/2013 JJ SPRING TIER, ANNEL FRANCES 216.9 MOLE/NEVUS - SITE UNSPECIFIED 09/07/2013 JJ SPRING TIER, ANNEL FRANCES 511.0 PLEURISY NOS 09/07/2013 MADL SPRING TIER, DION L 216.9 MOLE/NEVUS - SITE UNSPECIFIED 09/07/2013 MADL SPRING TIER, DION L 511.0 PLEURISY NOS 09/07/2013 LAURA BENNETT MD 216.9 MOLE/NEVUS - SITE UNSPECIFIED 09/07/2013 LAURA BENNETT MD 511.0 PLEURISY NOS 09/07/2013 MADL SPRING TIER, DION L 216.9 MOLE/NEVUS - SITE UNSPECIFIED 09/07/2013 MADL SPRING TIER, DION L 511.0 PLEURISY NOS 09/07/2013 LOCKETT DO, SHANNA K 216.9 MOLE/NEVUS - SITE UNSPECIFIED 09/07/2013 LOCKETT DO, SHANNA K 511.0 PLEURISY NOS 09/07/2013 LOCKETT DO, SHANNA K 216.9 MOLE/NEVUS - SITE UNSPECIFIED 09/07/2013 LOCKETT DO, SHANNA K 511.0 PLEURISY NOS 09/07/2013 MADL SPRING TIER, DION L 216.9 MOLE/NEVUS - SITE UNSPECIFIED 09/07/2013 MADL SPRING TIER, DION L 511.0 PLEURISY NOS 09/07/2013 MADL SPRING TIER, DION L 216.9 MOLE/NEVUS - SITE UNSPECIFIED 09/07/2013 MADL SPRING TIER, DION L 511.0 PLEURISY NOS 09/07/2013 MADL SPRING TIER, DION L 216.9 MOLE/NEVUS - SITE UNSPECIFIED 09/07/2013 MADL SPRING TIER, DION L 511.0 PLEURISY NOS 09/07/2013 LOCKETT DO, SHANNA K 216.9 MOLE/NEVUS - SITE UNSPECIFIED 09/07/2013 LOCKETT DO, SHANNA K 511.0 PLEURISY NOS 09/07/2013 MADL SPRING TIER, DION L 216.9 MOLE/NEVUS - SITE UNSPECIFIED 09/07/2013 MADL SPRING TIER, DION L 511.0 PLEURISY NOS 09/07/2013 MADL SPRING TIER, DION L 216.9 MOLE/NEVUS - SITE UNSPECIFIED 09/07/2013 MADL SPRING TIER, DION L 511.0 PLEURISY NOS 09/07/2013 MADL SPRING TIER, DION L 216.9 MOLE/NEVUS - SITE UNSPECIFIED 09/07/2013 MADL SPRING TIER, DION L 511.0 PLEURISY NOS 09/07/2013 MADL SPRING TIER, DION L 216.9 MOLE/NEVUS - SITE UNSPECIFIED 09/07/2013 MADL SPRING TIER, DION L 511.0 PLEURISY NOS 09/07/2013 MADL SPRING TIER, DION L 216.9 MOLE/NEVUS - SITE UNSPECIFIED 09/07/2013 MADL SPRING TIER, DION L 511.0 PLEURISY NOS 09/07/2013 MADL SPRING TIER, DION L 216.9 MOLE/NEVUS - SITE UNSPECIFIED 09/07/2013 MADL SPRING TIER, DION L 511.0 PLEURISY NOS 09/07/2013 MADL SPRING TIER, DION L 216.9 MOLE/NEVUS - SITE UNSPECIFIED 09/07/2013 MADL SPRING TIER, DION L 511.0 PLEURISY NOS 09/07/2013 MADL SPRING TIER, DION L 216.9 MOLE/NEVUS - SITE UNSPECIFIED 09/07/2013 MADL SPRING TIER, DION L 511.0 PLEURISY NOS 09/07/2013 MADL SPRING TIER, DION L 216.9 MOLE/NEVUS - SITE UNSPECIFIED 09/07/2013 MADL SPRING TIER, DION L 511.0 PLEURISY NOS 09/07/2013 LOCKETT DO, SHANNA K 216.9 MOLE/NEVUS - SITE UNSPECIFIED 09/07/2013 LOCKETT DO, SHANNA K 511.0 PLEURISY NOS 09/07/2013 GRAY SPRING TIER, BARRY R 216.9 MOLE/NEVUS - SITE UNSPECIFIED 09/07/2013 GRAY DEL TORO BARRY R 511.0 PLEURISY NOS 09/07/2013 LOCKETT DO, SHANNA K 216.9 MOLE/NEVUS - SITE UNSPECIFIED 09/07/2013 LOCKETT DO, SHANNA K 511.0 PLEURISY NOS 09/16/2013 JOHN KILPATRICK SPRING TIER Ot 491.21 OBSTR CHRONIC BRONCHITIS, W (ACUTE) EXAC 09/16/2013 JOHN KILPATRICK SPRING TIER Ot 786.05 SHORTNESS OF BREATH 09/20/2013 JOHN KILPATRICK SPRING TIER Ot 496 CHR AIRWAY OBSTRUCT NEC 09/20/2013 JOHN KILPATRICK SPRING TIER Ot 786.05 SHORTNESS OF BREATH 09/29/2013 ELIZABETH [...] APRN 729.5 PAIN IN LIMB 12/26/2013 MADL SPRING TIER, DION L 112.0 CANDIDIASIS OF MOUTH 12/26/2013 MADL SPRING TIER DION L 719.41 PAIN IN JOINT INVOLVING SHOULDER REGION 12/26/2013 BRITTANY DEL TORO DION L 729.5 PAIN IN LIMB 12/26/2013 LAURA BENNETT MD 112.0 CANDIDIASIS OF MOUTH 12/26/2013 LAURA BENNETT MD 719.41 PAIN IN JOINT INVOLVING SHOULDER REGION 12/26/2013 LAURA BENNETT MD 729.5 PAIN IN LIMB 12/26/2013 MADL SPRING TIER, DION L 112.0 CANDIDIASIS OF MOUTH 12/26/2013 BIRDIEL SPRING TIER, DION L 719.41 PAIN IN JOINT INVOLVING SHOULDER REGION 12/26/2013 BIRDIEL SPRING TIER, DION L 729.5 PAIN IN LIMB 12/26/2013 [...] K 729.5 PAIN IN LIMB 12/26/2013 MADL SPRING TIER, DION L 112.0 CANDIDIASIS OF MOUTH 12/26/2013 MADL SPRING TIER, DION L 719.41 PAIN IN JOINT INVOLVING SHOULDER REGION 12/26/2013 MADL SPRING TIER, DION L 729.5 PAIN IN LIMB 12/26/2013 MADL SPRING TIER, DION L 112.0 CANDIDIASIS OF MOUTH 12/26/2013 MADL SPRING TIER, DION L 719.41 PAIN IN JOINT INVOLVING SHOULDER REGION 12/26/2013 MADL SPRING TIER, DION L 729.5 PAIN IN LIMB 12/26/2013 MADL SPRING TIER, DION L 112.0 CANDIDIASIS OF MOUTH 12/26/2013 MADL SPRING TIER, DION L 719.41 PAIN IN JOINT INVOLVING SHOULDER REGION 12/26/2013 MADL SPRING TIER, DION L 729.5 PAIN IN LIMB 12/26/2013 LOCKETT DO, SHANNA K 112.0 CANDIDIASIS OF MOUTH 12/26/2013 LOCKETT DO, SHANNA K 719.41 PAIN IN JOINT INVOLVING SHOULDER REGION 12/26/2013 LOCKETT DO, SHANNA K 729.5 PAIN IN LIMB 12/26/2013 MADL SPRING TIER, DION L 112.0 CANDIDIASIS OF MOUTH 12/26/2013 MADL SPRING TIER, DION L 719.41 PAIN IN JOINT INVOLVING SHOULDER REGION 12/26/2013 MADL SPRING TIER, DION L 729.5 PAIN IN LIMB 12/26/2013 MADL SPRING TIER, DION L 112.0 CANDIDIASIS OF MOUTH 12/26/2013 MADL SPRING TIER, DION L 719.41 PAIN IN JOINT INVOLVING SHOULDER REGION 12/26/2013 MADL SPRING TIER, DION L 729.5 PAIN IN LIMB 12/26/2013 MADL SPRING TIER, DION L 112.0 CANDIDIASIS OF MOUTH 12/26/2013 MADL SPRING TIER, DION L 719.41 PAIN IN JOINT INVOLVING SHOULDER REGION 12/26/2013 MADL SPRING TIER, DION L 729.5 PAIN IN LIMB 12/26/2013 MADL SPRING TIER, DION L 112.0 CANDIDIASIS OF MOUTH 12/26/2013 MADL SPRING TIER, DION L 719.41 PAIN IN JOINT INVOLVING SHOULDER REGION 12/26/2013 MADL SPRING TIER, DION L 729.5 PAIN IN LIMB 12/26/2013 MADL SPRING TIER, DION L 112.0 CANDIDIASIS OF MOUTH 12/26/2013 MAD[facility] SPRING TIER, DION L 719.41 PAIN IN JOINT INVOLVING SHOULDER REGION 12/26/2013 MAD[facility] SPRING TIER, DION L 729.5 PAIN IN LIMB 12/26/2013 MAD[facility] SPRING TIER, DION L 112.0 CANDIDIASIS OF MOUTH 12/26/2013 MAD[facility] SPRING TIER, DION L 719.41 PAIN IN JOINT INVOLVING SHOULDER REGION 12/26/2013 MADL SPRING TIER, DION L 729.5 PAIN IN LIMB 12/26/2013 MAD[facility] SPRING TIER, DION L 112.0 CANDIDIASIS OF MOUTH 12/26/2013 MAD[facility] SPRING TIER, DION L 719.41 PAIN IN JOINT INVOLVING SHOULDER REGION 12/26/2013 MADL SPRING TIER, DION L 729.5 PAIN IN LIMB 12/26/2013 MAD[facility] SPRING TIER, DION L 112.0 CANDIDIASIS OF MOUTH 12/26/2013 MAD[facility] SPRING TIER, DION L 719.41 PAIN IN JOINT INVOLVING SHOULDER REGION 12/26/2013 MADL SPRING TIER, DION L 729.5 PAIN IN LIMB 12/26/2013 MAD[facility] SPRING TIER, DION L 112.0 CANDIDIASIS OF MOUTH 12/26/2013 MAD[facility] SPRING TIER, DION L 719.41 PAIN IN JOINT INVOLVING SHOULDER REGION 12/26/2013 MAD[facility] SPRING TIER, DION L 729.5 PAIN IN LIMB 12/26/2013 [...] UNSPECIFIED TYPE NOT STATED UNCONTROLLED 04/09/2014 MADL SPRING TIER, DION L 250.02 DIABETES MELLITUS WITHOUT MENTION OF COMPLICATION TYPE II OR UNSPECIFIED TYPE UNCONTROLLED 04/09/2014 MADL SPRING TIER, DION L 250.80 DIABETES WITH OTHER SPECIFIED MANIFESTATIONS TYPE II OR UNSPECIFIED TYPE NOT STATED UNCONTROLLED 04/09/2014 MADL SPRING TIER, DION L 250.02 DIABETES MELLITUS WITHOUT MENTION OF COMPLICATION TYPE II OR UNSPECIFIED TYPE UNCONTROLLED 04/09/2014 MAD[facility] SPRING TIER, DION L 250.80 DIABETES WITH OTHER SPECIFIED MANIFESTATIONS TYPE II OR UNSPECIFIED TYPE NOT STATED UNCONTROLLED 04/09/2014 MAD[facility] SPRING TIER, DION L 250.02 DIABETES MELLITUS WITHOUT MENTION OF COMPLICATION TYPE II OR UNSPECIFIED TYPE UNCONTROLLED 04/09/2014 MAD[facility] SPRING TIER, DION L 250.80 DIABETES WITH OTHER SPECIFIED MANIFESTATIONS TYPE II OR UNSPECIFIED TYPE NOT STATED UNCONTROLLED 04/09/2014 SHANNA LOCKETT DO K 250.02 DIABETES MELLITUS WITHOUT MENTION OF COMPLICATION TYPE II OR UNSPECIFIED TYPE UNCONTROLLED 04/09/2014 SHANNA LOCKETT DO K 250.80 DIABETES WITH OTHER SPECIFIED MANIFESTATIONS TYPE II OR UNSPECIFIED TYPE NOT STATED UNCONTROLLED 04/09/2014 MADL SPRING TIER, DION L 250.02 DIABETES MELLITUS WITHOUT MENTION OF COMPLICATION TYPE II OR UNSPECIFIED TYPE UNCONTROLLED 04/09/2014 MADL SPRING TIER, DION L 250.80 DIABETES WITH OTHER SPECIFIED MANIFESTATIONS TYPE II OR UNSPECIFIED TYPE NOT STATED UNCONTROLLED 04/09/2014 MADL SPRING TIER, DION L 250.02 DIABETES MELLITUS WITHOUT MENTION OF COMPLICATION TYPE II OR UNSPECIFIED TYPE UNCONTROLLED 04/09/2014 MAD[facility] SPRING TIER, DION L 250.80 DIABETES WITH OTHER SPECIFIED MANIFESTATIONS TYPE II OR UNSPECIFIED TYPE NOT STATED UNCONTROLLED 04/09/2014 MAD[facility] SPRING TIER, DION L 250.02 DIABETES MELLITUS WITHOUT MENTION OF COMPLICATION TYPE II OR UNSPECIFIED TYPE UNCONTROLLED 04/09/2014 MAD[facility] SPRING TIER, DION L 250.80 DIABETES WITH OTHER SPECIFIED MANIFESTATIONS TYPE II OR UNSPECIFIED TYPE NOT STATED UNCONTROLLED 04/09/2014 MADL SPRING TIER, DION L 250.02 DIABETES MELLITUS WITHOUT MENTION OF COMPLICATION TYPE II OR UNSPECIFIED TYPE UNCONTROLLED 04/09/2014 MAD[facility] SPRING TIER, DION L 250.80 DIABETES WITH OTHER SPECIFIED MANIFESTATIONS TYPE II OR UNSPECIFIED TYPE NOT STATED UNCONTROLLED 04/09/2014 MAD[facility] SPRING TIER, DION L 250.02 DIABETES MELLITUS WITHOUT MENTION OF COMPLICATION TYPE II OR UNSPECIFIED TYPE UNCONTROLLED 04/09/2014 MADL SPRING TIER, DION L 250.80 DIABETES WITH OTHER SPECIFIED MANIFESTATIONS TYPE II OR UNSPECIFIED TYPE NOT STATED UNCONTROLLED 04/09/2014 MAD[facility] SPRING TIER, DION L 250.02 DIABETES MELLITUS WITHOUT MENTION OF COMPLICATION TYPE II OR UNSPECIFIED TYPE UNCONTROLLED 04/09/2014 MAD[facility] SPRING TIER, DION L 250.80 DIABETES WITH OTHER SPECIFIED MANIFESTATIONS TYPE II OR UNSPECIFIED TYPE NOT STATED UNCONTROLLED 04/09/2014 MAD[facility] SPRING TIER, DION L 250.02 DIABETES MELLITUS WITHOUT MENTION OF COMPLICATION TYPE II OR UNSPECIFIED TYPE UNCONTROLLED 04/09/2014 MAD[facility] SPRING TIER, DION L 250.80 DIABETES WITH OTHER SPECIFIED MANIFESTATIONS TYPE II OR UNSPECIFIED TYPE NOT STATED UNCONTROLLED 04/09/2014 MAD[facility] SPRING TIER, DION L 250.02 DIABETES MELLITUS WITHOUT MENTION OF COMPLICATION TYPE II OR UNSPECIFIED TYPE UNCONTROLLED 04/09/2014 MAD[facility] SPRING TIER, DION L 250.80 DIABETES WITH OTHER SPECIFIED MANIFESTATIONS TYPE II OR UNSPECIFIED TYPE NOT STATED UNCONTROLLED 04/09/2014 MAD[facility] SPRING TIER, DION L 250.02 DIABETES MELLITUS WITHOUT MENTION OF COMPLICATION TYPE II OR UNSPECIFIED TYPE UNCONTROLLED 04/09/2014 MAD SPRING TIER, DION L 250.80 DIABETES WITH OTHER SPECIFIED [...] V15.82 HISTORY OF TOBACCO USE 07/23/2014 MADL SPRING TIER, DION L 686.8 OTHER SPECIFIED LOCAL INFECTIONS OF SKIN AND SUBCUTANEOUS TISSUE 07/23/2014 MAD[facility] SPRING TIER, DION L 787.1 HEARTBURN 07/23/2014 GRANT LOCKETT DOA K 686.8 OTHER SPECIFIED LOCAL INFECTIONS OF SKIN AND SUBCUTANEOUS TISSUE 07/23/2014 SHANNA LOCKETT DO K 787.1 HEARTBURN 07/23/2014 MAD[facility] SPRING TIER, DION L 686.8 OTHER SPECIFIED LOCAL INFECTIONS OF SKIN AND SUBCUTANEOUS TISSUE 07/23/2014 MAD[facility] SPRING TIER, DION L 787.1 HEARTBURN 07/23/2014 MAD[facility] SPRING TIER, DION L 686.8 OTHER SPECIFIED LOCAL INFECTIONS OF SKIN AND SUBCUTANEOUS TISSUE 07/23/2014 MAD[facility] SPRING TIER, DION L 787.1 HEARTBURN 07/23/2014 MAD[facility] SPRING TIER, DION L 686.8 OTHER SPECIFIED LOCAL INFECTIONS OF SKIN AND SUBCUTANEOUS TISSUE 07/23/2014 MAD[facility] SPRING TIER, DION L 787.1 HEARTBURN 07/23/2014 MAD[facility] SPRING TIER, DION L 686.8 OTHER SPECIFIED LOCAL INFECTIONS OF SKIN AND SUBCUTANEOUS TISSUE 07/23/2014 MADL SPRING TIER, DION L 787.1 HEARTBURN 07/23/2014 MADL SPRING TIER, DION L 686.8 OTHER SPECIFIED LOCAL INFECTIONS OF SKIN AND SUBCUTANEOUS TISSUE 07/23/2014 MADL SPRING TIER, DION L 787.1 HEARTBURN 07/23/2014 MADL SPRING TIER, DION L 686.8 OTHER SPECIFIED LOCAL INFECTIONS OF SKIN AND SUBCUTANEOUS TISSUE 07/23/2014 MADL SPRING TIER, DION L 787.1 HEARTBURN 07/23/2014 MADL SPRING TIER, DION L 686.8 OTHER SPECIFIED LOCAL INFECTIONS OF SKIN AND SUBCUTANEOUS TISSUE 07/23/2014 MADL SPRING TIER, DION L 787.1 HEARTBURN 07/23/2014 MADL SPRING TIER, DION L 686.8 OTHER SPECIFIED LOCAL INFECTIONS OF SKIN AND SUBCUTANEOUS TISSUE 07/23/2014 MADL SPRING TIER, DION L 787.1 HEARTBURN 07/23/2014 MADL SPRING TIER, DION L 686.8 OTHER SPECIFIED LOCAL INFECTIONS OF SKIN AND SUBCUTANEOUS TISSUE 07/23/2014 MADL SPRING TIER, DION L 787.1 HEARTBURN 07/23/2014 LOCKETT DO, SHANNA K 686.8 OTHER SPECIFIED LOCAL INFECTIONS OF SKIN AND SUBCUTANEOUS TISSUE 07/23/2014 LOCKETT DO, SHANNA K 787.1 HEARTBURN 07/23/2014 CASTELLANO SPRING TIER, BARRY R 686.8 OTHER SPECIFIED LOCAL INFECTIONS OF SKIN AND SUBCUTANEOUS TISSUE 07/23/2014 CASTELLANO KATEY BARRY R 787.1 HEARTBURN 07/23/2014 LOCKETT DO, SHANNA K 686.8 OTHER SPECIFIED LOCAL INFECTIONS OF SKIN AND SUBCUTANEOUS TISSUE 07/23/2014 LOCKETT DO, SHANNA K 787.1 HEARTBURN 08/02/2014 MADL SPRING TIER, DION L 381.01 ACUTE SEROUS OTITIS MEDIA 08/02/2014 MADL SPRING TIER, DION L 528.9 OTHER AND UNSPECIFIED DISEASES OF THE ORAL SOFT TISSUES 08/02/2014 MADL SPRING TIER, DION L V04.81 FLU SHOT 08/02/2014 MADL SPRING TIER, DION L 381.01 ACUTE SEROUS OTITIS MEDIA 08/02/2014 MADL SPRING TIER, DION L 528.9 OTHER AND UNSPECIFIED DISEASES OF THE ORAL SOFT TISSUES 08/02/2014 MADL SPRING TIER, DION L V04.81 FLU SHOT 08/02/2014 MADL SPRING TIER, DION L 381.01 ACUTE SEROUS OTITIS MEDIA 08/02/2014 MADL SPRING TIER, DION L 528.9 OTHER AND UNSPECIFIED DISEASES OF THE ORAL SOFT TISSUES 08/02/2014 MADL SPRING TIER, DION L V04.81 FLU SHOT 08/02/2014 MADL SPRING TIER, DION L 381.01 ACUTE SEROUS OTITIS MEDIA 08/02/2014 MADL SPRING TIER, DION L 528.9 OTHER AND UNSPECIFIED DISEASES OF THE ORAL SOFT TISSUES 08/02/2014 MADL SPRING TIER, DION L V04.81 FLU SHOT 08/02/2014 MADL SPRING TIER, DION L 381.01 ACUTE SEROUS OTITIS MEDIA 08/02/2014 MADL SPRING TIER, DION L 528.9 OTHER AND UNSPECIFIED DISEASES OF THE ORAL SOFT TISSUES 08/02/2014 MADL SPRING TIER, DION L V04.81 FLU SHOT 08/02/2014 MADL SPRING TIER, DION L 381.01 ACUTE SEROUS OTITIS MEDIA 08/02/2014 MADL SPRING TIER, DION L 528.9 OTHER AND UNSPECIFIED DISEASES OF THE ORAL SOFT TISSUES 08/02/2014 MADL SPRING TIER, DION L V04.81 FLU SHOT 08/02/2014 MADL SPRING TIER, DION L 381.01 ACUTE SEROUS OTITIS MEDIA 08/02/2014 MADL SPRING TIER, DION L 528.9 OTHER AND UNSPECIFIED DISEASES OF THE ORAL SOFT TISSUES 08/02/2014 MADL SPRING TIER, DION L V04.81 FLU SHOT 08/02/2014 MADL SPRING TIER, DION L 381.01 ACUTE SEROUS OTITIS MEDIA 08/02/2014 MADL SPRING TIER, DION L 528.9 OTHER AND UNSPECIFIED DISEASES OF THE ORAL SOFT TISSUES 08/02/2014 BIRDIEL SPRING TIER, DION L V04.81 FLU SHOT 08/02/2014 BIRDIEL SPRING TIER, DION L 381.01 ACUTE SEROUS OTITIS MEDIA 08/02/2014 MADL SPRING TIER, DION L 528.9 OTHER AND UNSPECIFIED DISEASES OF THE ORAL SOFT TISSUES 08/02/2014 MADL SPRING TIER, DION L V04.81 FLU SHOT 08/02/2014 LOCKETT [...] LUIZA THOMPSON DO Ot 799.02 08/20/2014 MADL SPRING TIER, DION L 786.52 PAINFUL RESPIRATION 08/20/2014 MADL SPRING TIER, DION L 786.52 PAINFUL RESPIRATION 08/20/2014 MADL SPRING TIER, DION L 786.52 PAINFUL RESPIRATION 08/20/2014 MADL SPRING TIER, DION L 786.52 PAINFUL RESPIRATION 08/20/2014 MADL SPRING TIER, DION L 786.52 PAINFUL RESPIRATION 08/20/2014 MADL SPRING TIER, DION L 786.52 PAINFUL RESPIRATION 08/20/2014 MADL SPRING TIER, DION L 786.52 PAINFUL RESPIRATION 08/20/2014 LOCKETT SHANNA CARRANZA K 786.52 PAINFUL RESPIRATION 08/20/2014 CASTELLANO SPRING TIER, BARRY R 786.52 PAINFUL RESPIRATION 08/20/2014 LOCKETT DO, SHANNA K 786.52 PAINFUL RESPIRATION 09/05/2014 MADL SPRING TIER, DION L 112.0 CANDIDIASIS OF MOUTH 09/05/2014 MADL SPRING TIER, DION L 682.6 CELLULITIS AND ABSCESS OF LEG EXCEPT FOOT 09/05/2014 MADL SPRING TIER, DION L 112.0 CANDIDIASIS OF MOUTH 09/05/2014 MADL SPRING TIER, DION L 682.6 CELLULITIS AND ABSCESS OF LEG EXCEPT FOOT 09/05/2014 MADL SPRING TIER, DION L 112.0 CANDIDIASIS OF MOUTH 09/05/2014 MADL SPRING TIER, DION L 682.6 CELLULITIS AND ABSCESS OF LEG EXCEPT FOOT 09/05/2014 MADL SPRING TIER, DION L 112.0 CANDIDIASIS OF MOUTH 09/05/2014 MADL SPRING TIER, DION L 682.6 CELLULITIS AND ABSCESS OF LEG EXCEPT FOOT 09/05/2014 LOCKETT DO, SHANNA K 112.0 CANDIDIASIS OF MOUTH 09/05/2014 LOCKETT DO, SHANNA K 682.6 CELLULITIS AND ABSCESS OF LEG EXCEPT FOOT 09/05/2014 CASTELLANO SPRING TIER, BARRY R 112.0 CANDIDIASIS OF MOUTH 09/05/2014 CASTELLANO SPRING TIER, BARRY R 682.6 CELLULITIS AND ABSCESS OF LEG EXCEPT FOOT 09/05/2014 LOCKETT DO, SHANNA K 112.0 CANDIDIASIS OF MOUTH 09/05/2014 LOCKETT DO, SHANNA K 682.6 CELLULITIS AND ABSCESS OF LEG EXCEPT FOOT 09/19/2014 MADL SPRING TIER, DION L 465.9 UPPER RESPIRATORY INFECTION 09/19/2014 MADL SPRING TIER, DION L 788.1 DYSURIA 09/19/2014 MADL SPRING TIER, DION L 465.9 UPPER RESPIRATORY INFECTION 09/19/2014 MADL SPRING TIER, DION L 788.1 DYSURIA 09/19/2014 MADL SPRING TIER, DION L 465.9 UPPER RESPIRATORY INFECTION 09/19/2014 MADL SPRING TIER, DION L 788.1 DYSURIA 09/19/2014 LOCKETT DO, SHANNA K 465.9 UPPER RESPIRATORY INFECTION 09/19/2014 LOCKETT DO, SHANNA K 788.1 DYSURIA 09/19/2014 BARRY CASTELLANO APRN R 465.9 UPPER RESPIRATORY INFECTION 09/19/2014 CASTELLANO [place] R 788.1 DYSURIA 09/19/2014 LOCKETT DOGRANTA K 465.9 UPPER RESPIRATORY INFECTION 09/19/2014 LOCKETT DO, SHANNA K 788.1 DYSURIA 10/17/2014 MADL SPRING TIERLAURE HaleA L 729.1 MYALGIA AND MYOSITIS UNSPECIFIED 10/17/2014 MADL SPRING TIERLAURE HaleA L 729.1 MYALGIA AND MYOSITIS UNSPECIFIED [...] 496 11/12/2014 DESTINY MOREIRA, NELSON A Ot 519.11 11/12/2014 DESTINY [...] CARRANZA LUIZA M Ot 278.01 05/09/2015 JAY LUIZA CARRANZA M Ot 496 05/09/2015 JAY CARRANZALUIZA [...] NORRIS, ALI FACP CCDS Ot Z79.899 OTHER SHELTER (CURRENT) DRUG THERAPY 08/27/2015 RENETTA NORRIS, ALI FACP CCDS Ot Z87.891 PERSONAL HISTORY OF NICOTINE DEPENDENCE 08/27/2015 RENETTA MOREIRA FACC, LINDY FACP CCDS Ot Z91.19 PATIENT'S NONCOMPLIANCE W [facility] 09/04/2015 SERENITY BARNES MD Ot [...] Moran Ot E11.9 11/05/2015 GELLENDER DO, TEMITOPE Mroan Ot E66.01 11/05/2015 GELLENDER DO, TEMITOPE Moran [...] 11/11/2015 JOHN KILPATRICK APRN Ot Z79.899 OTHER DOOR CLAMPER (CURRENT) DRUG THERAPY 11/11/2015 JOHN KILPATRICK APRN [...] Ot Z91.19 PATIENT'S NONCOMPLIANCE W [facility] 12/20/2015 JOSE CARRANZA TEMITOPE Moran [...] CHEST PAIN NOS 02/19/2016 MOLLY MOREIRA, SERENITY Fox Ot E11.9 TYPE [...] DEPENDENCE ON SUPPLEMENTAL OXYGEN 03/12/2016 MARGO CAMPOVERDE SPRING TIER Ot J30.9 ALLERGIC RHINITIS, UNSPECIFIED 03/12/2016 NIRALIMARGO HICKS SPRING TIER Ot J44.9 CHRONIC OBSTRUCTIVE PULMONARY DISEASE, U 03/12/2016 NIRALIMARGO HICKS SPRING TIER Ot R09.02 HYPOXEMIA 03/19/2016 MARGO CAMPOVERDE SPRING TIER Ot J30.9 ALLERGIC RHINITIS, UNSPECIFIED 03/19/2016 NIRALIMARGO HICKS SPRING TIER Ot J44.9 CHRONIC OBSTRUCTIVE PULMONARY DISEASE, U [...] DEPENDENCE ON SUPPLEMENTAL OXYGEN 04/20/2016 JOHN KILPATRICK SPRING TIER Ot 491.21 OBSTR CHRONIC BRONCHITIS, W (ACUTE) EXAC 04/20/2016 JOHN KILPATRICK APRN Ot 786.50 CHEST PAIN NOS 04/20/2016 MOLLY MOREIRA, SERENITY Fxo Ot E11.9 TYPE [...] Ot S46.901A UNSP INJ UNSP [facility]C/FASC/TEND AT [facility]/ 05/06/2016 JOHN KILPATRICK APRN Ot J44.9 [...] VERTEBRA, NEC, THORACIC REGION 05/12/2016 JOHN KILPATRICK SPRING TIER Ot R51 HEADACHE 05/12/2016 JOHN KILPATRICK APRN [...] U 05/14/2016 JOHN KILPATRICK APRN Ot Z79.4 SHELTER (CURRENT) USE OF INSULIN 05/15/2016 DEVORAH PETERSON [...] U 05/18/2016 JOHN KILPATRICK APRN Ot Z79.4 DOOR CLAMPER (CURRENT) USE OF INSULIN 05/21/2016 SERENITY BARNES [...] A Ot 786.09 RESPIRATORY ABNORM NEC 05/26/2016 DESTIYN MOREIRA, NELSON A Ot [address] [...] 06/17/2016 KJ DO, CHRISTELLE K Ot Z79.4 DOOR CLAMPER (CURRENT) USE OF INSULIN 06/17/2016 KJ DO, CHRISTELLE K Ot Z79.899 OTHER SHELTER (CURRENT) DRUG THERAPY 06/17/2016 KJ DO, CHRISTELLE [...] 06/18/2016 KJ DO, CHRISTELLE K Ot Z79.4 SHELTER (CURRENT) USE OF INSULIN 06/18/2016 KJ DO, CHRISTELLE K Ot Z79.899 OTHER SHELTER (CURRENT) DRUG THERAPY 06/18/2016 KJ DO, CHRISTELLE [...] PAIN 08/17/2016 JOHN KILPATRICK APRN Ot Z79.4 SHELTER (CURRENT) USE OF INSULIN 08/17/2016 JOHN KILPATRICK APRN Ot Z79.84 DOOR CLAMPER (CURRENT) USE OF ORAL HYPOGLYC 08/17/2016 JOHN KILPATRICK APRN Ot Z79.899 OTHER SHELTER (CURRENT) DRUG THERAPY 08/17/2016 JOHN KILPATRICK APRN [...] PAIN 08/18/2016 JOHN KILPATRICK APRN Ot Z79.4 DOOR CLAMPER (CURRENT) USE OF INSULIN 08/18/2016 JOHN KILPATRICK APRN Ot Z79.84 SHELTER (CURRENT) USE OF ORAL HYPOGLYC 08/18/2016 JOHN KILPATRICK APRN Ot Z79.899 OTHER SHELTER (CURRENT) DRUG THERAPY 08/18/2016 JOHN KILPATRICK APRN [...] Ot L03.311 CELLULITIS OF ABDOMINAL WALL 11/09/2016 CHRITSELLE UNDERWOOD DO Ot M25.552 PAIN IN LEFT [...] Ot I10 ESSENTIAL (PRIMARY) HYPERTENSION 11/13/2016 GELLENDER DOTMEITOPE Ot J18.9 PNEUMONIA, UNSPECIFIED ORGANISM 11/13/2016 GELLENDER [...] Ot Z91.19 PATIENT'S NONCOMPLIANCE W [facility] 11/26/2016 ADA SOLIS MD Ot [...] TYPE 2 DIABETES MELLITUS WITHOUT COMPLIC 01/18/2017 SERENITY BARNES MD Ot E66.9 OBESITY, UNSPECIFIED 01/18/2017 [...] LAI MD Ot J43.9 EMPHYSEMA, UNSPECIFIED 03/20/2017 MRAIAH LAI MD Ot J45.909 UNSPECIFIED ASTHMA, UNCOMPLICATED [...] ADULT 03/20/2017 MARIAH LAI MD Ot Z79.4 DOOR CLAMPER (CURRENT) USE OF INSULIN 03/20/2017 MARIAH LAI MD Ot Z79.82 SHELTER (CURRENT) USE OF ASPIRIN 03/20/2017 MARIAH LAI MD Ot Z79.84 DOOR CLAMPER (CURRENT) USE OF ORAL HYPOGLYC 03/20/2017 MARIAH LAI MD Ot Z82.49 FAMILY HX OF ISCHEM HEART DIS AND OTH DI 03/20/2017 MRAIAH LAI MD Ot Z83.3 FAMILY HISTORY OF [...] Ot R07.9 CHEST PAIN, UNSPECIFIED 03/23/2017 MARIAH ALI MD Ot Z68.41 BODY MASS INDEX (BMI) 40.0-44.9, ADULT 03/23/2017 MARIAH LAI MD Ot Z79.4 DOOR CLAMPER (CURRENT) USE OF INSULIN 03/23/2017 MARIAH LAI MD Ot Z79.82 SHELTER (CURRENT) USE OF ASPIRIN 03/23/2017 MARIAH LAI MD Ot Z79.84 DOOR CLAMPER (CURRENT) USE OF ORAL HYPOGLYC 03/23/2017 MARIAH [...] NASAL CONGESTION 04/07/2017 JOSE CARRANZATEMITOPE Ot Z79.4 SHELTER (CURRENT) USE OF INSULIN 04/07/2017 JOSE CARRANZATEMITOPE Ot Z79.84 SHELTER (CURRENT) USE OF ORAL HYPOGLYC 04/07/2017 JOSE CARRANZATEMITOPE Ot Z79.899 OTHER DOOR CLAMPER (CURRENT) DRUG THERAPY 04/07/2017 JOSE TEMITOPE CARRANZA [...] MAMMOGRAM FOR MALIGNANT NE 06/10/2017 VAL, WILLY QUALITY CONTROL TECHNICIAN Ot E11.9 TYPE 2 DIABETES MELLITUS WITHOUT COMPLIC 06/10/2017 VAL, WILLY QUALITY CONTROL TECHNICIAN Ot F32.9 MAJOR DEPRESSIVE DISORDER, SINGLE EPISOD 06/10/2017 VAL, WILLY QUALITY CONTROL TECHNICIAN Ot F41.9 ANXIETY DISORDER, UNSPECIFIED 06/10/2017 VAL, WILLY QUALITY CONTROL TECHNICIAN Ot J44.1 CHRONIC OBSTRUCTIVE PULMONARY DISEASE W 06/10/2017 VAL, WILLY QUALITY CONTROL TECHNICIAN Ot R06.02 SHORTNESS OF BREATH 06/10/2017 VAL, WILLY QUALITY CONTROL TECHNICIAN Ot Z79.4 DOOR CLAMPER (CURRENT) USE OF INSULIN 06/10/2017 VAL, WILLY QUALITY CONTROL TECHNICIAN Ot Z82.49 FAMILY HX OF ISCHEM HEART DIS AND OTH DI 06/10/2017 VAL, WILLY QUALITY CONTROL TECHNICIAN Ot Z87.59 PERSONAL HISTORY OF COMP OF PREG, CHLDBR 06/10/2017 VAL, WILLY QUALITY CONTROL TECHNICIAN Ot Z87.891 PERSONAL HISTORY OF NICOTINE DEPENDENCE 06/10/2017 VAL, WILLY QUALITY CONTROL TECHNICIAN Ot Z98.51 TUBAL LIGATION STATUS 06/11/2017 TEMITOPE GARCIA DO Ot J44.9 CHRONIC OBSTRUCTIVE PULMONARY DISEASE, U 06/16/2017 VAL, WILLY QUALITY CONTROL TECHNICIAN Ot E11.9 TYPE 2 DIABETES MELLITUS WITHOUT COMPLIC 06/16/2017 VAL, WILLY QUALITY CONTROL TECHNICIAN Ot F32.9 MAJOR DEPRESSIVE DISORDER, SINGLE EPISOD 06/16/2017 VAL, WILLY QUALITY CONTROL TECHNICIAN Ot F41.9 ANXIETY DISORDER, UNSPECIFIED 06/16/2017 VAL, WILLY QUALITY CONTROL TECHNICIAN Ot J44.1 CHRONIC OBSTRUCTIVE PULMONARY DISEASE W 06/16/2017 VAL, WILLY QUALITY CONTROL TECHNICIAN Ot R06.02 SHORTNESS OF BREATH 06/16/2017 VAL, WILLY QUALITY CONTROL TECHNICIAN Ot Z79.4 SHELTER (CURRENT) USE OF INSULIN 06/16/2017 VAL, WILLY QUALITY CONTROL TECHNICIAN Ot Z82.49 FAMILY HX OF ISCHEM HEART DIS AND OTH DI 06/16/2017 VAL, WILLY QUALITY CONTROL TECHNICIAN Ot Z87.59 PERSONAL HISTORY OF COMP OF PREG, CHLDBR 06/16/2017 VAL, WILLY QUALITY CONTROL TECHNICIAN Ot Z87.891 PERSONAL HISTORY OF NICOTINE DEPENDENCE 06/16/2017 VAL, WILLY QUALITY CONTROL TECHNICIAN Ot Z98.51 TUBAL LIGATION STATUS 06/16/2017 VALDIVIA [...] Ot J44.9 CHRONIC OBSTRUCTIVE PULMONARY DISEASE, U 11/19/2017 MARIAH LAI MD Ot E11.9 TYPE 2 DIABETES MELLITUS WITHOUT COMPLIC 11/19/2017 MARIAH LAI MD Ot E66.9 OBESITY, UNSPECIFIED 11/19/2017 MARIAH LAI MD Ot F32.9 MAJOR DEPRESSIVE DISORDER, SINGLE EPISOD 11/19/2017 MARIAH LAI MD Ot F41.9 ANXIETY DISORDER, UNSPECIFIED 11/19/2017 MARIAH LAI MD Ot G47.30 SLEEP APNEA, UNSPECIFIED 11/19/2017 MARIAH LAI MD Ot I10 ESSENTIAL (PRIMARY) HYPERTENSION 11/19/2017 MARIAH LAI MD, Ot J44.1 CHRONIC OBSTRUCTIVE PULMONARY DISEASE W 11/19/2017 MARIAH LAI MD Ot K21.9 GASTRO-ESOPHAGEAL REFLUX DISEASE WITHOUT 11/19/2017 MARIAH LAI MD Ot R06.02 SHORTNESS OF BREATH 11/19/2017 MARIAH LAI MD Ot Z79.4 DOOR CLAMPER (CURRENT) USE OF INSULIN 11/19/2017 MARIAH LAI MD Ot Z79.52 SHELTER (CURRENT) USE OF SYSTEMIC STER 11/19/2017 MARIAH LAI MD Ot Z87.01 PERSONAL HISTORY OF PNEUMONIA (RECURRENT 11/19/2017 MARIAH LAI MD Ot Z87.59 PERSONAL HISTORY OF COMP OF PREG, CHLDBR 11/19/2017 MARIAH LAI MD Ot Z87.891 PERSONAL HISTORY OF NICOTINE DEPENDENCE 11/19/2017 MARIAH LAI MD Ot Z88.5 ALLERGY STATUS TO NARCOTIC AGENT STATUS 11/19/2017 MARIAH LAI MD Ot Z98.51 TUBAL LIGATION STATUS 11/22/2017 MARIAH LAI MD Ot E11.9 TYPE 2 DIABETES MELLITUS WITHOUT COMPLIC 11/22/2017 MARIAH LAI MD Ot E66.9 OBESITY, UNSPECIFIED 11/22/2017 MARIAH LAI MD Ot F32.9 MAJOR DEPRESSIVE DISORDER, SINGLE EPISOD 11/22/2017 MARIAH LAI MD Ot F41.9 ANXIETY DISORDER, UNSPECIFIED 11/22/2017 MARIAH LAI MD Ot G47.30 SLEEP APNEA, UNSPECIFIED 11/22/2017 MARIAH LAI MD Ot I10 ESSENTIAL (PRIMARY) HYPERTENSION 11/22/2017 MARIAH LAI MD Ot J44.1 CHRONIC OBSTRUCTIVE PULMONARY DISEASE W 11/22/2017 MARIAH LAI MD Ot K21.9 GASTRO-ESOPHAGEAL REFLUX DISEASE WITHOUT 11/22/2017 MARIAH LAI MD Ot R06.02 SHORTNESS OF BREATH 11/22/2017 MARIAH LAI MD Ot Z79.4 DOOR CLAMPER (CURRENT) USE OF INSULIN 11/22/2017 MARIAH LAI MD Ot Z79.52 DOOR CLAMPER (CURRENT) USE OF SYSTEMIC STER 11/22/2017 MARIAH LAI MD Ot Z87.01 PERSONAL HISTORY OF PNEUMONIA (RECURRENT 11/22/2017 MARIAH LAI MD, Ot Z87.59 PERSONAL HISTORY OF COMP OF PREG, CHLDBR 11/22/2017 MARIAH LAI MD Ot Z87.891 PERSONAL HISTORY OF NICOTINE DEPENDENCE 11/22/2017 MARIAH LAI MD, Ot Z88.5 ALLERGY STATUS TO NARCOTIC AGENT STATUS 11/22/2017 MARIAH LAI MD Ot Z98.51 TUBAL LIGATION STATUS Procedures Code Description [place] [address] MAMMOGRAM, SCREENING 12/09/2011 94.68 02/02/2012 72711 PSYCH PHARM MGMT 08/25/2012 27287 OXIMETRY 10/26/2012 05513 PAP SMEAR 11/08/2012 99465 MEASURE BLOOD OXYGEN LEVEL 11/08/2012 Q0091 PAP SMEAR OBTAIN SMEAR 11/08/2012 02571 MEASURE BLOOD OXYGEN LEVEL 11/09/2012 74505 URINE TEST (IN- HOUSE) 12/05/2012 30250 UA W/ CULTURE IF INDICATED 12/05/2012 56216 COLP W/ ECC 2012 38924 US PELVIC COMPL (REFLEX CPT - 08917) 2012 35115 THERAPUTIC INJ SQ/IM 12/13/2012 J2930 SOLUMEDROL INJ 12/13/2012 OBSTE [facility], 12/15/2012 88562 ROUTINE VENIPUNCTURE 01/06/2013 92881 THERAPUTIC INJ SQ/IM 01/06/2013 71633 A1C (IN-HOUSE) 01/06/2013 69820 CBC 01/06/2013 43880 CMP 01/06/2013 3003787 GFR CALC (RESULT ONLY) 01/06/2013 02812 TSH 01/06/2013 39840 OXIMETRY 01/09/2013 36975 OXIMETRY 01/09/2013 J2930 SOLUMEDROL INJ 01/09/2013 15653 XRAY CHEST 2 VIEW 01/20/2013 82408 OXIMETRY 01/20/2013 58145 MEASURE BLOOD OXYGEN LEVEL 02/14/2013 06587 OXIMETRY 02/24/2013 73337 THERAPUTIC INJ SQ/IM 02/24/2013 J2930 SOLUMEDROL INJ 02/24/2013 69012 MEASURE BLOOD OXYGEN LEVEL 06/02/2013 J2930 SOLUMEDROL INJ 06/16/2013 59468 THERAPUTIC INJ SQ/IM 06/16/2013 14311 OXIMETRY 06/21/2013 15096 A1C (IN-HOUSE) 06/21/2013 01949 OXIMETRY 06/26/2013 G0008 FLU ADMINISTRATION ( MEDICARE ONLY) 07/18/2013 93901 THERAPUTIC INJ SQ/IM 09/06/2013 J2930 SOLUMEDROL INJ 09/06/2013 69842 MEASURE BLOOD OXYGEN LEVEL 09/07/2013 92075 OXIMETRY 10/05/2013 10633 OXIMETRY 10/24/2013 60757 A1C (IN-HOUSE) 11/16/2013 31079 BONE SCAN, LIMITED 11/16/2013 PODIATRY CONRADO FRAZIER 04/09/2014 72367 OXIMETRY 04/09/2014 87923 A1C (IN-HOUSE) 04/09/2014 56568 OXIMETRY 05/02/2014 05322 OXIMETRY 06/04/2014 62859 ROUTINE VENIPUNCTURE 07/17/2014 60028 CMP 07/17/2014 18219 CBC 07/17/2014 10682 OXIMETRY 07/17/2014 29573 [employer]ITOX 07/17/2014 23083 CULTURE WOUND (AEROBIC) 07/23/2014 58904 OXIMETRY 07/23/2014 65063 OXIMETRY 08/03/2014 G0008 FLU ADMINISTRATION ( MEDICARE ONLY) 08/03/2014 71146 OXIMETRY 08/10/2014 14597 XRAY CHEST 2 VIEW 08/20/2014 10237 MAMMOGRAM, SCREENING 08/20/2014 81495 SLEEP STUDY (HOSPITAL- SLEEP STUDY) 08/20/2014 65936 GLUCOSE FINGER STICK 09/19/2014 76807 UA W/ CULTURE IF INDICATED 09/19/2014 34965 ROUTINE VENIPUNCTURE 10/31/2014 2716936 GFR CALC (RESULT ONLY) 10/31/2014 37201 CMP 10/31/2014 10166 OXIMETRY 12/14/2014 34801 OXIMETRY 12/21/2014 [id number] 10/25/2015 Results Test Result Range Complete blood [...] NRG Blood band neutrophils/100 leukocytes 1 % NR Manual blood lymphocytes/100 leukocytes 8 % NRG Manual eosinophils/100 leukocytes in nose 1 % NRG Manual blood basophils/100 leukocytes 0 % NR Blood erythrocyte morphology finding identification NORMAL NR [...] smear finding identification by light microscopy YES [facility] Comprehensive metabolic panel - 11/12/16 04:19 Serum [...] or plasma urea nitrogen/creatinine mass ratio 27 [facility] Serum or plasma creatinine measurement with calculation of estimated glomerular filtration rate > [facility] Serum or plasma glucose measurement (mass/volume) 320 [...] plasma albumin measurement (mass/volume) 3.5 g/dL 3.2-4.5 [id number] - 11/12/16 04:19 Serum or plasma acetaminophen [...] culture - 11/12/16 17:25 Bacterial urine culture [id number] NRG COLONY COUNT <10,000 NRG FTX;REPORTABLE SENSITIVITY [...] NRG Blood band neutrophils/100 leukocytes 0 % NR Manual blood lymphocytes/100 leukocytes 5 % NRG Manual eosinophils/100 leukocytes in nose 0 % NR Manual blood basophils/100 leukocytes 0 % NR Blood erythrocyte morphology finding identification NORMAL [facility] Comprehensive metabolic panel - 04/05/17 06:20 Serum [...] calculation of estimated glomerular filtration rate > [facility] Serum or plasma glucose measurement (mass/volume) 277 [...] plasma albumin measurement (mass/volume) 4.5 g/dL 3.2-4.5 Complete blood count (CBC) with automated white blood cell (WBC) differential - 11/19/17 17:50 Blood leukocytes automated count (number/volume) 15.0 10*3/uL 4.3-11.0 Blood erythrocytes automated count (number/volume) 4.60 10*6/uL 4.35-5.85 Venous blood hemoglobin measurement (mass/volume) 11.8 g/dL 11.5-16.0 Blood hematocrit (volume fraction) 38 % 35-52 Automated erythrocyte mean corpuscular volume 82 [foz_us] 80-99 Automated erythrocyte mean corpuscular hemoglobin (mass per erythrocyte) 26 pg 25-34 Automated erythrocyte mean corpuscular hemoglobin concentration measurement ( mass/volume) 31 g/dL 32-36 Automated erythrocyte distribution width ratio 15.5 % 10.0-14.5 Automated blood platelet count (count/volume) 414 10*3/uL 130-400 Automated blood platelet mean volume measurement 10.1 [foz_us] 7.4-10.4 Automated blood neutrophils/100 leukocytes 74 % 42-75 Automated blood lymphocytes/100 leukocytes 16 % 12-44 Blood monocytes/100 leukocytes 8 % 0-12 Automated blood eosinophils/100 leukocytes 2 % 0-10 Automated blood basophils/100 leukocytes 0 % 0-10 Blood neutrophils automated count (number/volume) 11.1 10*3 1.8-7.8 Blood lymphocytes automated count (number/volume) 2.4 10*3 1.0-4.0 Blood monocytes automated count (number/volume) 1.1 10*3 0.0-1.0 Automated eosinophil count 0.3 10*3/uL 0.0-0.3 Automated blood basophil count (count/volume) 0.0 10*3/uL 0.0-0.1 Comprehensive metabolic panel - 11/19/17 17:50 Serum or plasma sodium measurement (moles/volume) 137 mmol/L 135-145 Serum or plasma potassium measurement (moles/volume) 3.8 mmol/L 3.6-5.0 Serum or plasma chloride measurement (moles/volume) 92 mmol/L 98-107 Carbon dioxide 26 mmol/L 21-32 Serum or plasma anion gap determination (moles/volume) 19 mmol/L 5-14 Serum or plasma urea nitrogen measurement (mass/volume) 18 mg/dL 7-18 Serum or plasma creatinine measurement (mass/volume) 1.04 mg/dL 0.60-1.30 Serum or plasma urea nitrogen/creatinine mass ratio 17 NRG Serum or plasma creatinine measurement with calculation of estimated glomerular filtration rate 58 NRG Serum or plasma glucose measurement (mass/volume) 139 mg/dL 70-105 Serum or plasma calcium measurement (mass/volume) 10.0 mg/dL 8.5-10.1 Serum or plasma total bilirubin measurement (mass/volume) 0.3 mg/dL 0.1-1.0 Serum or plasma alkaline phosphatase measurement (enzymatic activity/volume) 90 U/L 40-136 Serum or plasma aspartate aminotransferase measurement (enzymatic activity/ volume) 34 U/L 5-34 Serum or plasma alanine aminotransferase measurement (enzymatic activity/volume ) 26 U/L 0-55 Serum or plasma protein measurement (mass/volume) 7.9 g/dL 6.4-8.2 Serum or plasma albumin measurement (mass/volume) 4.4 g/dL 3.2-4.5 Magnesium - 11/19/17 17:50 Magnesium 2.2 mg/dL 1.8-2.4 Serum or plasma troponin i.cardiac measurement (mass/volume) - 11/19/17 17:50 Serum or plasma troponin i.cardiac measurement (mass/volume) < ng/ mL <0.30 Blood manual differential performed detection - 11/19/17 17:50 Blood monocytes/100 leukocytes 7 % NRG Manual blood segmented neutrophils/100 leukocytes 45 % NRG Blood band neutrophils/100 leukocytes 5 % NRG Manual blood lymphocytes/100 leukocytes 39 % NRG Manual eosinophils/100 leukocytes in nose 3 % NRG Manual blood basophils/100 leukocytes 1 % NRG Blood erythrocyte morphology finding identification NORMAL NRG Serum or plasma C reactive protein measurement (mass/volume) - 11/19/17 17:50 Serum or plasma C reactive protein measurement (mass/volume) 1.51 mg /dL 0.00-0.50 Serum or plasma troponin i.cardiac measurement (mass/volume) - 11/19/17 19:50 Serum or plasma troponin i.cardiac measurement (mass/volume) < ng/ mL <0.30 Influenza virus A and B antigen detection - 11/19/17 19:54 FLU RESULT NEGATIVE FOR INFLUENZA A AND B ANTIGENS BY IA NRG Encounters ACCT No. Visit Date/Time Discharge Status Pt. Type Provider Facility Loc./Unit Complaint [id number] 12/21/2014 10:47:00 12/21/2014 23:59:59 CLS Outpatient SHANNA LOCKETT DO [place] [id number] 12/14/2014 14:00:00 12/14/2014 23:59:59 CLS Outpatient BARRY CASTELLANO APRN [id number] 11/22/2014 10:23:00 11/22/2014 23:59:59 CLS Outpatient SHANNA LOCKETT DO [place] [id number] 10/31/2014 14:32:00 10/31/2014 23:59:59 CLS Outpatient MADL [facility] TIER, DION L [id number] 10/17/2014 14:03:00 10/17/2014 23:59:59 CLS Outpatient MADL [facility], DION L [id number] 09/19/2014 13:49:00 09/19/2014 23:59:59 CLS Outpatient MADL [facility], DION L [id number] 09/05/2014 12:53:00 09/05/2014 23:59:59 CLS Outpatient MAD[facility], DION L [id number] 08/20/2014 13:19:00 08/20/2014 23:59:59 CLS Outpatient MADL [facility], D[place] L [id number] 08/20/2014 13:19:00 08/20/2014 23:59:59 CLS Outpatient MADL [facility], DION L [id number] 08/10/2014 10:05:00 08/10/2014 23:59:59 CLS Outpatient MADL [facility], DION L [id number] 08/10/2014 10:05:00 08/10/2014 23:59:59 CLS Outpatient MAD[facility], D[place] L [id number] 08/02/2014 16:11:00 08/02/2014 23:59:59 CLS Outpatient [facility], D[place] L [id number] 07/30/2014 06:01:00 07/30/2014 23:59:59 CLS Outpatient SHANNA LOCKETT DO [place] [id number] 07/23/2014 14:28:00 07/23/2014 23:59:59 CLS Outpatient MAD[facility], DION L [id number] 07/17/2014 09:59:00 07/17/2014 23:59:59 CLS Outpatient MADL SPRING TIERDION [place] [id number] 06/04/2014 10:20:00 06/04/2014 23:59:59 CLS Outpatient MADL DION [place] [id number] 05/22/2014 17:06:00 05/22/2014 23:59:59 CLS Outpatient SHANNA LOCKETT DO [place] [id number] 05/02/2014 13:31:00 05/02/2014 23:59:59 CLS Outpatient SHANNA LOCKETT DO [place] [id number] 04/09/2014 15:32:00 04/09/2014 23:59:59 CLS Outpatient LAURA BENNETT MD [id number] 04/09/2014 13:20:00 04/09/2014 23:59:59 CLS Outpatient DION SOTO APRN [id number] 04/09/2014 13:20:00 04/09/2014 23:59:59 CLS Outpatient MADL DION [place] [id number] 12/28/2013 13:56:00 12/28/2013 23:59:59 CLS Outpatient ANNEL JJ APRN [id number] 12/26/2013 10:04:00 12/26/2013 23:59:59 CLS Outpatient MARTÍNEZ MARY APRN N [id number] 11/16/2013 09:46:00 11/16/2013 23:59:59 CLS Outpatient MARTÍNEZ MARY APRN N [id number] 11/07/2013 08:22:00 11/07/2013 23:59:59 CLS Outpatient SHANNA LOCKETT DO [place] [id number] 10/24/2013 12:14:00 10/24/2013 23:59:59 CLS Outpatient ELIZABETH ROBIN MD [id number] 10/19/2013 16:17:00 10/19/2013 23:59:59 CLS Outpatient LAURA BENNETT MD [id number] 10/05/2013 14:54:00 10/05/2013 23:59:59 CLS Outpatient LAURA BENNETT MD [id number] 09/07/2013 09:59:00 09/07/2013 23:59:59 CLS Outpatient CARLINE MARIO APRN [id number] 09/06/2013 13:04:00 09/06/2013 23:59:59 CLS Outpatient CAROLYN MARIO APRNLuisa Guerra [id number] 07/18/2013 13:30:00 07/18/2013 23:59:59 CLS Outpatient SHANNA LOCKETT DO [id number] 06/21/2013 15:20:00 06/21/2013 23:59:59 CLS Outpatient BINDU PALM MD [id number] 06/21/2013 15:20:00 06/21/2013 23:59:59 CLS Outpatient BINDU PALM MD [id number] 06/16/2013 14:03:00 06/16/2013 23:59:59 CLS Outpatient BINDU PALM MD [id number] 06/16/2013 14:03:00 06/16/2013 23:59:59 CLS Outpatient BINDU PALM MD [id number] 12/13/2012 12:54:00 12/13/2012 23:59:59 CLS Outpatient BINDU PALM MD [id number] 12/05/2012 09:40:00 12/05/2012 23:59:59 CLS Outpatient [id number] 11/28/2012 10:23:00 11/28/2012 23:59:59 CLS Outpatient [id number] 11/07/2012 15:40:00 11/07/2012 23:59:59 CLS Outpatient LAURA BENNETT MD [id number] 10/26/2012 15:11:00 10/26/2012 23:59:59 CLS Outpatient SHANNA LOCKETT DO [id number] 10/26/2012 15:11:00 10/26/2012 23:59:59 CLS Outpatient SHANNA LOCKETT DO [id number] 09/24/2012 11:53:00 09/24/2012 23:59:59 CLS Outpatient JJ APRNANNEL [id number] 08/25/2012 09:28:00 08/25/2012 23:59:59 CLS Outpatient DON POOL MD [id number] 08/19/2012 16:47:00 08/19/2012 23:59:59 CLS Outpatient [id number] 06/17/2012 11:19:00 06/17/2012 23:59:59 CLS Outpatient LAURA BENNETT MD [id number] 06/02/2013 13:27:00 Document Registration [id number] 02/24/2013 16:15:00 Document Registration [id number] 02/24/2013 16:15:00 Document Registration [id number] 02/14/2013 15:36:00 Document Registration [id number] 02/14/2013 15:36:00 Document Registration [id number] 01/17/2013 08:31:00 Document Registration [id number] 01/06/2013 10:13:00 Document Registration [id number] 09/09/2017 16:40:00 09/09/2017 23:59:59 CLS Outpatient MADL DION [facility] [id number] 12/21/2017 13:00:00 12/21/2017 23:59:59 CLS Preadmit TEMITOPE GARCIA DO Via [facility] PULM COPD [id number] 10/07/2017 12:54:00 12/20/2017 00:01:00 DIS Outpatient TEMITOPE GARCIA DO [facility] PULM COPD [id number] 11/19/2017 16:42:00 11/19/2017 21:58:00 DIS Emergency MARIAH LAI MD [facility] ER CHEST PAIN [id number] 08/31/2017 13:00:00 09/20/2017 00:01:00 DIS Outpatient TEMITOPE GARCIA DO [facility] PULM COPD [id number] 07/02/2017 11:29:00 07/02/2017 23:59:59 CLS Outpatient HARRIETT MOREIRA, FREEDOM Hidalgo [facility] RAD VENTRAL HERNIA K43.9 [id number] 06/08/2017 13:00:00 06/19/2017 00:01:00 DIS Outpatient TEMITOPE GARCIA DO [facility] PULM COPD [id number] 06/10/2017 13:20:00 06/10/2017 16:24:00 DIS Emergency WILLY NEAL [facility] ER SOA COUGHING UP BLOOD [id number] 06/08/2017 15:36:00 06/08/2017 23:59:59 CLS Outpatient DAR VALDIVIA DO [facility] RAD Z12.31 R10.2 [id number] 06/07/2017 11:03:00 06/07/2017 23:59:59 CLS Preadmit DAR VALDIVIA DO [facility] RAD CHRONIC FEMALE PELVIC PAIN [id number] 04/22/2017 13:00:00 05/09/2017 00:01:00 DIS Outpatient TEMITOPE GARCIA DO [facility] PULM COPD [id number] 04/13/2017 07:51:00 04/13/2017 23:59:59 CLS Outpatient Rocky GRIMALDO MD [facility] CARD CHEST PAIN [id number] 04/04/2017 15:05:00 04/07/2017 11:10:00 DIS Inpatient TEMITOPE GARCIA DO Via [facility] 4TH COPD EXACERBATION [id number] 03/20/2017 11:26:00 03/20/2017 15:05:00 DIS Emergency MING MOREIRA, MARIAH Prasad [facility] ER CP AND BACK PAIN [id number] 11/20/2016 13:19:00 11/20/2016 14:44:00 DIS Emergency WILL MOREIRA, ADA Guerra [facility] ER POSS BITE ON RIGHT SIDE [id number] 11/11/2016 11:43:00 11/13/2016 12:15:00 DIS Inpatient TEMITOPE GARCIA DO Via [facility] 4TH ACUTE ON CHRONIC RESPIRATORY FAILURE COPD PNEUMONI [id number] 11/09/2016 09:19:00 11/09/2016 10:50:00 DIS Emergency CHRISTELLE UNDERWOOD DO Via [facility] ER RIGHT SIDE/LEFT LEG PAIN NAUSEA [id number] 08/25/2016 15:00:00 08/25/2016 23:59:59 CLS Preadmit MARGO CAMPOVERDE APRN [facility] PULM COPD,HYPOXIA [id number] 08/11/2016 13:00:00 08/24/2016 00:01:00 DIS Outpatient MARGO CAMPOVERDE APRN [facility] PULM COPD,HYPOXIA [id number] 08/17/2016 14:08:00 08/17/2016 16:38:00 DIS Emergency JOHN KILPATRICK APRN [facility] ER CHEST PAIN/SOA [id number] 06/17/2016 15:06:00 06/17/2016 15:28:00 DIS Emergency CHRISTELLE UNDERWOOD DO [facility] ER L SIDE EAR,FACIAL,AND TONGUE PAIN [id number] 05/14/2016 10:48:00 05/14/2016 11:06:00 DIS Emergency JOHN KILPATRICK APRN [facility] ER L EAR PAIN SWELLING [id number] 05/13/2016 12:47:00 05/13/2016 23:59:59 CLS Outpatient KRISTEN MOREIRA, DEVORAH Guerra [facility] RAD COPD ACUTE EXACERBATION [id number] 05/04/2016 16:45:00 05/04/2016 19:07:00 DIS Emergency JOHN KILPATRICK APRN [facility] ER CP,BACK PAIN [id number] 04/23/2016 13:00:00 04/26/2016 00:01:00 DIS Outpatient MARGO CAMPOVERDE APRN [facility] PULM COPD,HYPOXIA [id number] 03/29/2016 15:24:00 03/29/2016 17:45:00 DIS Emergency CHRISTELLE UNDERWOOD DO [facility] ER SOB [id number] 12/18/2015 09:50:00 12/20/2015 13:49:00 DIS Inpatient TEMITOPE GARCIA DO [facility] 4TH COPD UTI [id number] 12/16/2015 14:54:00 12/16/2015 17:10:00 DIS Outpatient MOLLY MOREIRA, SERENITY Fox [facility] ER BACK/CHEST PAIN SOA [id number] 11/29/2015 12:49:00 11/29/2015 15:35:00 DIS Emergency WILL MOREIRA, ADA Guerra [facility] ER CHEST PAIN/SOA [id number] 11/11/2015 17:41:00 11/11/2015 19:49:00 DIS Emergency JOHN KILPATRICK APRN [facility] ER SOA,ELEVATED BLOOD SUGAR [id number] 11/04/2015 12:27:00 11/06/2015 13:05:00 DIS Inpatient TEMITOPE GARCIA DO Via [facility] 4TH COPD POSSIBLE PNEUMONITIS [id number] 10/25/2015 20:26:00 10/30/2015 12:20:00 DIS Inpatient TEMITOPE GARCIA DO [facility] 4TH ATYPICAL PNEUMONIA, EXACERBATION COPD,H/O DIABETES [id number] 10/02/2015 15:30:00 10/07/2015 12:20:00 DIS Inpatient TEMITOPE GARCIA DO Via [facility] 4TH ACUTE ON CHRONIC RESPIRATORY FAILURE [id number] 09/17/2015 19:36:00 09/17/2015 21:19:00 DIS Emergency JOHN KILPATRICK APRN [facility] ER DIFFICULTY BREATHING [id number] 09/04/2015 16:49:00 09/04/2015 18:40:00 DIS Emergency MOLLY MOREIRA, SERENITY Fox [facility] ER CHEST PAIN, LOW OXYGEN [id number] 08/27/2015 06:50:00 08/27/2015 14:05:00 DIS Outpatient RENETTA MOREIRA FACC, LINDY COLLIER CCDS [facility] CATH OBESITY, CHEST DISCOMFORT, HYPOXIA [id number] 07/14/2015 21:22:00 07/16/2015 11:20:00 DIS Inpatient SABRINA MOREIRA, LAURA Benz [facility] 4TH AECOPD [id number] 07/07/2015 11:50:00 07/07/2015 14:40:00 DIS Emergency JOHN KILPATRICK APRN [facility] ER SOA [id number] 06/17/2015 09:01:00 06/17/2015 23:59:59 CLS Preadmit PJ MOREIRA, LETITIA Oliver [facility] WOUNDCARE [id number] 05/09/2015 12:22:00 05/09/2015 23:59:59 CLS Outpatient DAR VALDIVIA DO [facility] RAD AMENORRHEA [id number] 07/08/2014 13:38:00 07/09/2014 12:30:00 DIS Inpatient SHANNA LOCKETT DO [facility] CSD COPD ACUTE EXACERBATION DIARRHEA [id number] 04/29/2014 17:44:00 04/29/2014 21:42:00 DIS Emergency CARL PARKER [facility] ER SOA [id number] 03/27/2014 18:05:00 03/30/2014 13:12:00 DIS Inpatient SHANNA LOCKETT DO [facility] 4TH COPD EXACERBATION, HYPOXIA, ANXIETY [id number] 03/21/2014 00:27:00 03/22/2014 13:45:00 DIS Inpatient BINDU PALM MD [facility] 4TH SOA;CP [id number] 02/13/2014 11:33:00 02/13/2014 13:28:00 DIS Emergency CHRISTELLE UNDERWOOD DO [facility] ER LOW O2 SATS [id number] 01/17/2014 14:56:00 01/17/2014 23:59:59 CLS Outpatient LUIZA THOMPSON DO [facility] RT COPD,HYPOXIA [id number] 11/14/2013 09:41:00 11/14/2013 23:59:59 CLS Outpatient LUIZA THOMPSON DO [facility] RAD COPD [id number] 10/24/2013 00:35:00 10/28/2013 14:55:00 DIS Inpatient LAURA BENNETT MD [facility] 4TH PNEUMONIA W/HYPOXIA;COPD EXACERBATION [id number] 10/05/2013 15:57:00 10/09/2013 17:10:00 DIS Inpatient LAURA BENNETT MD [facility] 4TH COPD [id number] 10/02/2013 12:12:00 10/02/2013 13:52:00 DIS Outpatient CHRISTELLE UNDERWOOD DO [facility] ER SOA [id number] 09/27/2013 14:12:00 09/29/2013 16:50:00 DIS Inpatient ELIZABETH ROBIN MD Via [address] COPD EXACERBATION [id number] 09/20/2013 16:55:00 09/20/2013 19:41:00 DIS Emergency JOHN KILPATRICK SPRING TIER [facility] ER SOA [id number] 09/16/2013 17:04:00 09/16/2013 18:50:00 DIS Emergency JOHN KILPATRICK SPRING TIER [facility] ER SOA [id number] 06/28/2013 13:12:00 06/28/2013 23:59:59 CLS Outpatient DESTINY MOREIRA, NELSON A [facility] RAD COUGH,HYPOXEMIA,GOLDBERG [id number] 06/28/2013 11:30:00 06/28/2013 23:59:59 CLS Outpatient DESTINY MOREIRA, NELSON A [facility] RT CHRONIC AIRWAY OBSTRUCTION ,ACUTE BRONCHOSPASM [id number] 05/17/2013 00:25:00 05/17/2013 13:30:00 DIS Inpatient SHANNA LOCKETT DO Via [facility] 4TH COPD ACUTE EXACERBATION [id number] 05/15/2013 13:50:00 05/15/2013 16:17:00 DIS Outpatient JOHN KILPATRICK APRN [facility] ER CHEST PAIN/SOA [id number] 03/23/2013 16:44:00 03/23/2013 19:24:00 DIS Emergency NHI CHAVEZ MD [facility] ER CP [id number] 03/20/2013 13:59:00 03/20/2013 15:08:00 DIS Emergency KELLIE QUINTERO MD [facility] ER SOA [id number] 11/14/2014 16:43:00 Document Registration [id number] 10/30/2014 12:32:00 Document Registration [id number] 10/30/2014 12:31:00 Document Registration [id number] 10/30/2014 12:31:00 Document Registration [id number] 10/30/2014 12:31:00 Document Registration [id number] 10/30/2014 12:31:00 Document Registration [id number] 10/30/2014 12:31:00 Document Registration [id number] 10/30/2014 12:31:00 Document Registration [id number] 10/30/2014 12:31:00 Document Registration [id number] 10/30/2014 12:31:00 Document Registration [id number] 10/30/2014 12:31:00 Document Registration [id number] 08/08/2014 16:30:00 Document Registration [id number] 08/08/2014 16:30:00 Document Registration [id number] 08/08/2014 16:29:00 Document Registration [id number] 08/08/2014 16:29:00 Document Registration [id number] 08/08/2014 16:29:00 Document Registration [id number] 08/08/2014 16:29:00 Document Registration [id number] 08/08/2014 16:29:00 Document Registration [id number] 08/08/2014 16:29:00 Document Registration [id number] 08/08/2014 16:29:00 Document Registration [id number] 12/12/2012 14:09:00 Document Registration [id number] 11/04/2012 10:41:00 Document Registration [id number] 08/14/2012 01:40:00 Document Registration [id number] 07/29/2012 11:00:00 Document Registration [id number] 04/21/2012 11:51:00 Document Registration [id number] 03/24/2012 19:50:00 Document Registration [id number] 03/17/2012 08:00:00 Document Registration [id number] 02/02/2012 18:31:00 Document Registration [id number] 01/26/2012 13:00:00 Document Registration [id number] 11/11/2011 13:14:00 Document Registration [id number] 09/16/2011 05:15:00 Document Registration [id number] 04/13/2011 13:36:00 Document Registration [id number] 01/12/2011 15:44:00 Document Registration [id number] 08/29/2010 09:45:00 Document Registration [id number] 04/08/2010 20:05:00 Document Registration [id number] 03/18/2010 21:37:00 Document Registration [id number] 02/19/2010 12:26:00 Document Registration [id number] 11/14/2009 12:01:00 Document Registration [id number] 08/07/2009 09:18:00 Document Registration [id number] 02/05/2006 14:45:00 Document Registration [id number] 05/10/2015 05:00:24 ACT Document Registration
--- NOTE | 2018-01-08 12:18 | Diagnostic Imaging Report ---
Indication: Throat pain, bloody cough. Comparison: 11/19/2017 Findings: There is flattening of the diaphragms and retrosternal airspace expansion as a chronic finding. No infiltrate. No apparent bronchiectasis. No effusion or pneumothorax. The hilar and mediastinal contour is unremarkable. Impression: Stable chronic findings. Dictated by: Dictated on workstation # [id number]
[2018-01-08 12:23] LABS: BASOPHILS % (AUTO) 0 % (0-10); EOSINOPHILS % (AUTO) 0 % (0-10); HEMATOCRIT 34 % (35-52); HEMOGLOBIN 10.3 G/DL (11.5-16.0); LYMPHOCYTES # (AUTO) 0.9 X 10^3 (1.0-4.0); LYMPHOCYTES % (AUTO) 8 % (12-44); MEAN CORPUSCULAR HEMOGLOBIN 24 PG (25-34); MEAN CORPUSCULAR HGB CONC 30 G/DL (32-36); MEAN CORPUSCULAR VOLUME 81 FL (80-99); MEAN PLATELET VOLUME 9.5 FL (7.4-10.4); MONOCYTES # (AUTO) 0.4 X 10^3 (0.0-1.0); MONOCYTES % (AUTO) 3 % (0-12); NEUTROPHILS % (AUTO) 88 % (42-75); PLATELET COUNT 385 10^3/uL (130-400); RED BLOOD COUNT 4.23 10^6/uL (4.35-5.85); RED CELL DISTRIBUTION WIDTH 15.9 % (10.0-14.5); WHITE BLOOD COUNT 11.3 10^3/uL (4.3-11.0)
--- NOTE | 2018-01-08 12:31 | ED Respiratory ---
General Chief Complaint: Cough/Cold/Flu Symptoms Stated Complaint: EAR PAIN/CONGESTION/CHEST PAIN Nursing Triage Note: PT AMBULATED TO ED W/O DIFFICULTIES. PT IS COMPLAINING OF L EAR PAIN THAT BEGAN LAST NIGHT. C/O INTERMITTENT PAIN OF 7/10 THROUGHOUT THE NIGHT. PT C/O CHEST PAINM THROAT PAIN AND COUGHING UP BLOODY PHLEGM. PT DESCRIBES EAR PAIN "ICE PICK" PAIN. History of Present Illness Date Seen by Provider: Jan 08, 2018 Time Seen by Provider: 11:05 Initial Comments 47-year-old female presents for left ear pain, chest tightness, hemoptysis, and sinus pressure. Her symptoms have been progressively getting worse over the last 2-3 days. She has a known history of COPD. She is on prednisone daily 10 mg. She denies any nausea or vomiting. She sees her technical healthcare consultant next week. She's had no change in her medication over the last few weeks. Timing/Duration: getting worse Severity: moderate Prior Episodes/Possible Cause: frequent episodes Modifying Factors: Improves With Rest Associated Symptoms: chest pain/soreness, cough, earache, facial pain, nasal congestion, nasal drainage, shortness of breath Allergies and Home Medications Allergies Coded Allergies: codeine (Verified Allergy, Intermediate, hives, 05/14/16) Home Medications Albuterol Sulfate 8.5 Gm Hfa.aer.ad, 2 PUFF INH Q4H PRN for SHORTNESS OF BREATH, (Reported) Albuterol/Ipratropium 3 Ml Nebu, 3 ML NEB QID PRN for SHORTNESS OF BREATH, ( Reported) Alprazolam 0.5 Mg Tablet, 0.5 MG PO BID, (Reported) Arformoterol Tartrate 15 Mcg/2 Ml Vial.neb, 15 MCG NEB BID, (Reported) MIXES WITH BUDESONIDE Budesonide 0.5 Mg/2 Ml Ampul.neb, 0.5 MG NEB BID, (Reported) MIXES WITH BROVANA Cefdinir 300 Mg Capsule, 300 MG PO BID Prescribed by: WILLY NEAL on 06/10/17 1610 Cefdinir 300 Mg Capsule, 300 MG PO BID Prescribed by: WILLY NEAL on 01/08/18 1302 Cetirizine HCl 10 Mg Tablet, 10 MG PO DAILY, (Reported) Cholecalciferol (Vitamin D3) 1,000 Unit Tablet, 3,000 UNIT PO DAILY, (Reported) TAKES 3 (1,000 UNITS) TABLETS Empagliflozin 10 Mg Tablet, 10 MG PO DAILY, (Reported) Fluticasone Propionate 16 Gm Parnell.susp, 1 SPRAY NA BID PRN for ALLERGIES, ( Reported) Fluvoxamine Maleate 100 Mg Tablet, 150 MG PO BID, (Reported) TAKES 1 & 1/2 (100MG) TABLET Gabapentin 600 Mg Tablet, 600 MG PO TID, (Reported) Hydrochlorothiazide 25 Mg Tablet, 25 MG PO DAILY, (Reported) Hydroxyzine HCl 50 Mg Tablet, 50 MG PO TID, (Reported) Ibuprofen 800 Mg Tablet, 800 MG PO BID, (Reported) Insulin Aspart 300 Units/3 Ml Solution, SQ AC, (Reported) 60-200 = 0 201-250 = 3 251-300 = 5 301-350 = 7 351-400 = 0 >400 CALL Insulin Degludec 100 Unit/1 Ml Insuln.pen, 12-13 UNITS SC DAILY, (Reported) Ketorolac Tromethamine 10 Mg Tablet, 10 MG PO Q8H Prescribed by: WILLY NEAL on 01/08/18 1302 Lorazepam 1 Mg Tablet, 1 MG PO Q12H PRN for ANXIETY Prescribed by: MARIAH LAI on 11/19/172158 Metformin HCl 500 Mg Tablet, 1,000 MG PO BID, (Reported) TAKES 2 (500MG) TABLETS Mirtazapine 15 Mg Tablet, 15 MG PO HS, (Reported) Montelukast Sodium 10 Mg Tablet, 10 MG PO DAILY, (Reported) Omeprazole 20 Mg Capsule.dr, 20 MG PO DAILY, (Reported) Potassium Gluconate 99 Mg Tablet, 99 MG PO DAILY PRN for CRAMPS, (Reported) Prednisone 10 Mg Tab, 10 MG PO DAILY, (Reported) Prednisone 20 Mg Tab, 60 MG PO BID 3 tabs twice a day x3 days 2 tabs twice a day x3 days 1 tab twice a day x3 days 1 tab daily x3 days Resume your reg dose Prescribed by: MARIAH LAI on 11/19/172158 Roflumilast 500 Mcg Tablet, 500 MCG PO DAILY, (Reported) Rosuvastatin Calcium 20 Mg Tablet, 20 MG PO DAILY Prescribed by: TEMITOPE GARCIA on 04/07/17 0805 Tiotropium Lorena 4 Gm Mist.inhal, 1 PUFF IH DAILY, (Reported) Trazodone HCl 100 Mg Tablet, 100 MG PO HS, (Reported) Patient Home Medication List Home Medication List Reviewed: Yes Review of Systems Constitutional: no symptoms reported, see HPI Respiratory: see HPI, cough, hemoptysis, phlegm All Other Systems Reviewed Negative Unless Noted: Yes Past Lznynft-Monavh-Bkiqao Hx Past Med/Social Hx: Reviewed Nursing Past Med/Soc Hx Patient Social History Alcohol Use: Denies Use Recreational Drug Use: No (smokes 2 PACKS A DAY) Type Used: Cigarettes Former Smoker, Quit: Apr 20, 2014 2nd Hand Smoke Exposure: No Recent Foreign Travel: No Contact w/Someone Who Travel: No Recent Infectious Disease Expo: No Recent Hopitalizations: No ( X 2, ANXIETY ATTACK, DEPRESSION) Immunizations Up To Date Tetanus Booster (TDap): Unknown PED Vaccines UTD: No Date of Pneumonia Vaccine: May 24, 2012 Date of Influenza Vaccine: Sep 29, 2016 Seasonal Allergies Seasonal Allergies: No Past Medical History Surgeries: Yes (LEFT EYE--LASER REPAIR OF DETACHED RETINA) Section, Eye Surgery, Gallbladder, Tubal Ligation Respiratory: Yes (HOME O2-CHRONIC RESPIRATORY FAILURE, NO VENTILATOR--PER PT) Asthma, Pneumonia, Chronic Bronchitis, Sleep Apnea, COPD, Emphysema Currently Using CPAP: Yes Currently Using BIPAP: No Cardiac: Yes Hypertension Neurological: No Reproductive Disorders: No 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 Disorders: Denies [employer]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 Sexually Transmitted Disease: Yes (HERPES) HIV/AIDS: No Gastrointestinal: Yes Gastroesophageal Reflux, Gall Bladder Disease Musculoskeletal: Yes (SHOULDER PAIN ) Fibromyalgia, Fractures Endocrine: Yes (OBESITY) Diabetes, Insulin dep Loss of Vision: Denies Hearing Impairment: Denies Cancer: No Psychosocial: Yes Anxiety, Depression Integumentary: Yes (RASHES, abd folds and beneath her breast bilaterally red) Recent Skin Changes, Herpes Blood Disorders: No Adverse Reaction/Blood Tranf: No Family Medical History Reviewed Nursing Family Hx CHF grandmother Diabetes mellitus grandmother FH: CHF (congestive heart failure) History of - respiratory disease 03 FATHER (COPD) Physical Exam Vital Signs Vital Signs - First Documented Capillary Refill : Less Than 3 Seconds General Appearance: WD/WN, no apparent distress Eyes: Bilateral Eye Normal Inspection, Bilateral Eye PERRL, Bilateral Eye EOMI HEENT: PERRL/EOMI, TMs normal, pharynx normal, other (left ear canal with erythema, swelling, tenderness. No drainage noted. TM normal. Frontal and maxillary sinus tenderness to palpation.) Neck: non-tender, full range of motion, supple, normal inspection Respiratory: chest non-tender, lungs clear, no respiratory distress, no accessory muscle use, decreased breath sounds Cardiovascular: normal peripheral pulses, regular rate, rhythm Gastrointestinal: normal bowel sounds, non tender, soft Neurologic/Psychiatric: no motor/sensory deficits, alert, normal mood/affect, oriented x 3 Skin: normal color, warm/dry Progress/Results/Core Measures Suspected Sepsis Recent Fever Within 48 Hours: No Infection Criteria Present: None New/Unexplained Altered Menta: No Sepsis Screen: No Definite Risk SIRS Temperature:97.2 Pulse: 123 Respiratory Rate: 16 Laboratory Tests 01/08/18 12:12: White Blood Count 11.3H Blood Pressure 131 /95 Mean: 107 Laboratory Tests 01/08/18 12:12: Creatinine 0.75, INR Comment 0.9, Platelet Count 385, Total Bilirubin 0.2 Results/Orders Lab Results Laboratory Tests Test 01/08/18 11:27 01/08/18 12:12 Range/Units Glucometer 220 H 70-110 MG/DL White Blood Count 11.3 H 4.3-11.0 10^3/uL Red Blood Count 4.23 L 4.35-5.85 10^6/uL Hemoglobin 10.3 L 11.5-16.0 G/DL Hematocrit 34 L 35-52 % Mean Corpuscular Volume 81 80-99 FL Mean Corpuscular Hemoglobin 24 L 25-34 PG Mean Corpuscular Hemoglobin Concent 30 L 32-36 G/DL Red Cell Distribution Width 15.9 H 10.0-14.5 % Platelet Count 385 130-400 10^3/uL Mean Platelet Volume 9.5 7.4-10.4 FL Neutrophils (%) (Auto) 88 H 42-75 % Lymphocytes (%) (Auto) 8 L 12-44 % Monocytes (%) (Auto) 3 0-12 % Eosinophils (%) (Auto) 0 0-10 % Basophils (%) (Auto) 0 0-10 % Neutrophils # (Auto) 10.0 H 1.8-7.8 X 10^3 Lymphocytes # (Auto) 0.9 L 1.0-4.0 X 10^3 Monocytes # (Auto) 0.4 0.0-1.0 X 10^3 Eosinophils # (Auto) 0.0 0.0-0.3 10^3/uL Basophils # (Auto) 0.0 0.0-0.1 10^3/uL Neutrophils % (Manual) 88 % Lymphocytes % (Manual) 9 % Monocytes % (Manual) 3 % Blood Morphology Comment NORMAL Prothrombin Time 12.0 L 12.2-14.7 SEC INR Comment 0.9 0.8-1.4 Activated Partial Thromboplast Time 23 L 24-35 SEC Sodium Level 137 135-145 MMOL/L Potassium Level 4.7 3.6-5.0 MMOL/L Chloride Level 99 98-107 MMOL/L Carbon Dioxide Level 27 21-32 MMOL/L Anion Gap 11 5-14 MMOL/L Blood Urea Nitrogen 15 7-18 MG/DL Creatinine 0.75 0.60-1.30 MG/DL Estimat Glomerular Filtration Rate > 60 BUN/Creatinine Ratio 20 Glucose Level 245 H 70-105 MG/DL Calcium Level 9.4 8.5-10.1 MG/DL Magnesium Level 2.2 1.8-2.4 MG/DL Total Bilirubin 0.2 0.1-1.0 MG/DL Aspartate Amino Transf (AST/SGOT) 20 5-34 U/L Alanine Aminotransferase (ALT/SGPT) 23 0-55 U/L Alkaline Phosphatase 78 40-136 U/L Myoglobin 35.0 10.0-92.0 NG/ML Troponin I < 0.30 <0.30 NG/ML C-Reactive Protein High Sensitivity 0.61 H 0.00-0.50 MG/DL B-Type Natriuretic Peptide 22.9 <100.0 PG/ML Total Protein 6.9 6.4-8.2 GM/DL Albumin 4.1 3.2-4.5 GM/DL My Orders Orders - WILLY NEAL PHOTO SPECIALIST Cbc With Automated Diff (01/08/18 11:25) Magnesium (01/08/18 11:25) Cardiac Profile 1 (01/08/18 11:25) Comprehensive Metabolic Panel (01/08/18 11:25) Myoglobin Serum (01/08/18 11:25) Protime With Inr (01/08/18 11:25) Partial Thromboplastin Time (01/08/18 11:25) O2 (01/08/18 11:25) Monitor-Rhythm Ecg Trace Only (01/08/18 11:25) Aspirin Chewable Tablet (Baby Aspirin Ch (01/08/18 11:30) Saline Lock/Iv-Start (01/08/18 11:25) BNP (01/08/18 11:25) Chest Pa/Lat (2 View) (01/08/18 11:25) Ketorolac Injection (Toradol Injection) (01/08/18 11:25) Accucheck Stat ONCE (01/08/18 11:25) Hs C Reactive Protein (01/08/18 11:34) Manual Differential (01/08/18 12:12) Acetaminophen Tablet/Caplet (Tylenol T (01/08/18 12:46) Albuterol/Ipra Inhalation Soln (Duoneb I (01/08/18 13:00) Svn Small Volume Nebulizer (01/08/18 12:46) Rt Request For Service (Other) (01/08/18 12:46) Medications Given in ED Current Medications Medications Dose Ordered Sig/[place] Route Start Time Stop Time Status Last Admin Dose Admin Albuterol/ Ipratropium 3 ml ONCE ONCE INH 01/08/18 13:00 01/08/18 13:01 DC 01/08/18 12:54 3 ML Aspirin 324 mg ONCE ONCE PO 01/08/18 11:30 01/08/18 11:31 DC 01/08/18 11:41 324 MG Vital Signs/I&O 01/08/18 01/08/18 01/08/18 01/08/18 11:01 11:01 11:01 11:29 Temp 97.2 Pulse 123 Resp 16 B/P (MAP) 131/95 (107) Pulse Ox 97 97 O2 Delivery Nasal Cannula Room Air Nasal Cannula Nasal Cannula O2 Flow Rate 3.00 3.00 3.0 01/08/18 01/08/18 12:55 13:14 Temp 97.4 Pulse 105 Resp 20 B/P (MAP) 120/77 Pulse Ox 100 95 O2 Delivery Nasal Cannula Nasal Cannula O2 Flow Rate 0 3.00 Capillary Refill : Less Than 3 Seconds Blood Pressure Mean: 107 Point of Care Testing Finger Stick Blood Glucose: 220 Blood Glucose Action Taken: rn notified Progress Note : Time: 11:05 Progress Note Initial evaluation completed, recommended cardiac workup. Will continue to monitor. Toradol 30 mg IV for pain. 1120 EKG shows sinus tachycardia no ST elevation. 1215 patient continues to have mild pain with inspiration. Workup to this point has been negative for cardiac etiology. 1245DuoNeb treatment. Tylenol 650 mg by mouth for pain. 1300 improved air movement after DuoNeb treatment, SaO2 99-100% on room air. 1315 discharge instructions, return precautions and risks discussed with the patient in detail. All questions answered. ECG Initial ECG Impression Date: Jan 08, 2018 Initial ECG Impression Time: 11:15 Initial ECG Rate: 107 Initial ECG Rhythm: S.Tach Initial ECG Intervals: Normal Initial ECG Impression: Normal Initial ECG Comparisson: Unchanged Comment Reviewed with Dr. He, concurred with this assessment. Diagnostic Imaging Diagonstic Imaging: Xray Plain Films/CT/US/NM/MRI: chest Comments NAME: RICHA RUTHERFORD MED REC#: [id number] PT STATUS: REG ER : 1970 PHYSICIAN: WILLY NEAL ADMIT DATE: 01/08/18/ER Draft Date of Exam:01/08/18 CHEST PA/LAT (2 VIEW) Indication: Throat pain, bloody cough. Comparison: 11/19/2017 Findings: There is flattening of the diaphragms and retrosternal airspace expansion as a chronic finding. No infiltrate. No apparent bronchiectasis. No effusion or pneumothorax. The hilar and mediastinal contour is unremarkable. Impression: Stable chronic findings. Dictated on workstation # [id number] Dict: 01/08/18 1211 Trans: 01/08/18 1218 [facility] [id number] Interpreted by: KB FATIMA Electronically signed by: Departure Impression Primary Impression: Otitis externa Qualified Codes: H60.312 - Diffuse otitis externa, left ear Additional Impressions: Sinusitis Qualified Codes: J01.00 - Acute maxillary sinusitis, unspecified COPD (chronic obstructive pulmonary disease) Qualified Codes: J44.9 - Chronic obstructive pulmonary disease, unspecified Diabetes mellitus type 2, uncontrolled, without complications Qualified Codes: E11.65 - Type 2 diabetes mellitus with hyperglycemia; Z79.4 - shelter (current) use of insulin Disposition: 01 HOME, SELF-CARE Condition: Stable Departure-Patient Inst. Decision time for Depature: 13:00 Referrals: TEMITOPE GARCIA DO (PCP/Family) Primary Care Physician Patient Instructions: Outer Ear Infection (DC), Sinusitis in Children Add. Discharge Instructions: Continue diabetic foot creams, may use pumice stone to debride the calluses. Apply Aquofor. If calluses continue on the feet, see Dr. GARCIA for referral to wound care. Take antibiotic as prescribed. Continue to use home oxygen and CPAP as prescribed. Follow-up with your technical healthcare consultant this week. Take all home medication as previously directed. Return to emergency department for new problems or concerns. All discharge instructions reviewed with patient and/or family. Voiced understanding. Scripts Cefdinir (Cefdinir) 300 Mg Capsule 300 MG PO BID, #14 CAP 0 Refills Prov: WILLY NEAL 01/08/18 Ketorolac Tromethamine (Ketorolac Tromethamine) 10 Mg Tablet 10 MG PO Q8H, #6 TAB 0 Refills Prov: WILLY NEAL 01/08/18 Copy Copies To 1: TEMITOPE GARCIA AMY ARNP Jan 08, 2018 12:31
[2018-01-08 12:39] LABS: LYMPHOCYTES % (MANUAL) 9 %; MONOCYTES % (MANUAL) 3 %; NEUTROPHILS % (MANUAL) 88 %; RBC MORPH NORMAL
[2018-01-08 12:40] LABS: INR 0.9 (0.8-1.4)
[2018-01-08 12:43] LABS: ALANINE AMINOTRANSFERASE 23 U/L (0-55); ALBUMIN 4.1 GM/DL (3.2-4.5); ALKALINE PHOSPHATASE 78 U/L (40-136); BILIRUBIN,TOTAL 0.2 MG/DL (0.1-1.0); BUN/CREATININE RATIO 20; CALCIUM 9.4 MG/DL (8.5-10.1); CARBON DIOXIDE 27 MMOL/L (21-32); CHLORIDE 99 MMOL/L (98-107); CREATININE SERUM 0.75 MG/DL (0.60-1.30); GFR ESTIMATED > 60; GLUCOSE 245 MG/DL (70-105); MAGNESIUM 2.2 MG/DL (1.8-2.4); POTASSIUM 4.7 MMOL/L (3.6-5.0); SODIUM 137 MMOL/L (135-145); TOTAL PROTEIN 6.9 GM/DL (6.4-8.2)
[2018-01-08] MEDS ORDERED: ACETAMINOPHEN 325 MG TABLET/CAPLET (TYLENOL) PO STA (12:46)
[2018-01-08] MEDS ORDERED: RT-ALBUTEROL/IPRATROPIUM 3 ML (DUONEB) VIAL INH ONE (13:00)
[2018-01-08] MEDS ORDERED: CEFD300C3 PO (13:02)
[2018-01-08] MEDS ORDERED: KETO10TA PO (13:02)
[2018-01-08 13:14] VITALS: BP 120/77
== END 2018-01-08 13:14 | disposition home or self-care (01) ==
LOC: EDUNIT# 10:58 → ER 10:59
DX: H60.92 Unspecified otitis externa, left ear (principal); J32.9 Chronic sinusitis, unspecified; J44.9 Chronic obstructive pulmonary disease, unspecified; E11.9 Type 2 diabetes mellitus without complications; E66.9 Obesity, unspecified; K21.9 Gastro-esophageal reflux disease without esophagitis; I10 Essential (primary) hypertension; Z87.891 Personal history of nicotine dependence; Z87.19 Personal history of other diseases of the digestive system; Z87.81 Personal history of (healed) traumatic fracture; Z98.51 Tubal ligation status; Z87.59 Personal history of other complications of pregnancy, childbirth and the puerperium; Z79.51 Long term (current) use of inhaled steroids; Z79.52 Long term (current) use of systemic steroids; Z79.4 Long term (current) use of insulin; Z88.5 Allergy status to narcotic agent; Z87.09 Personal history of other diseases of the respiratory system; Z87.01 Personal history of pneumonia (recurrent); Z68.39 Body mass index [BMI] 39.0-39.9, adult
CPT/HCPCS: 36415; 71046; 80053; 82962; 83735; 83874; 83880; 84484; 85007; 85027; 85610; 85730; 86141; 93005; 93041; 94640; 96374

== ENCOUNTER 2018-02-19 10:56 | Emergency (ER) | payer MEDICARE, MEDICAID ==
[~2018-02-19] VITALS: Ht 165.1 cm; Wt 90.7 kg
[~2018-02-19 10:56] MED LIST changes: +KETO10TA PO; -METF500T4 PO; +METF500T5 PO
--- OUTSIDE RECORDS SUMMARY | 2018-02-19 11:11 | XMS REPORT ---
Author Author CONNIE ISAIAH Organization [facility] Address [address] [place] [address] Care Team Providers Care Magnetic Testing Technician Name Role Phone INNAJAYLEN ISAIAH Unavailable PROBLEMS Type Condition ICD9-CM Code XVH53-LW Code Onset Dates Condition Status SNOMED Code Problem Oral lesion K13.70 Active 430160426 Problem Major depressive disorder, recurrent episode, unspecified severity F33.9 Active 51062736 Problem Chronic respiratory failure, unsp w hypoxia or hypercapnia J96.10 Active 85907664 Problem Alcohol use disorder, severe, in early remission, dependence F10.21 Active 79043487 Problem Alcohol use disorder, severe, in sustained remission, dependence F10.21 Active 45485572 Problem Major depression, recurrent, chronic F33.9 Active 08497857 Problem Generalized anxiety disorder F41.1 Active 32735047 Problem Amphetamine use disorder, moderate, dependence F15.20 Active 37333748 Problem Major depressive disorder, recurrent, moderate F33.1 Active 36220376 Problem Other specified menopausal and postmenopausal disorder 627.8 Active 080887376 Problem Chronic obstructive pulmonary disease, unspecified COPD type J44.9 Active 73927081 Problem Palpitation R00.2 Active 86963866 Problem Allergic rhinitis, cause unspecified 477.9 Active 10765144 Problem Type 2 diabetes mellitus with diabetic neuropathy E11.40 Active 45290187 Problem Chest pain, unspecified chest pain type R07.9 Active 39062864 Problem Anxiety F41.9 Active 89923319 ALLERGIES No Information ENCOUNTERS Encounter Location Date Diagnosis [facility] [address] [facility] [id number], [place] [address] Feb, [facility] [address], [place] [address] January, [facility] [id number], [place] [address] 9911 January, [facility] [address] [place] [address] 97733- 6900 Dec, Alcohol use disorder, severe, in sustained remission, dependence F10.21 ; Amphetamine use disorder, moderate, dependence F15.20 ; Generalized anxiety disorder F41.1 and Major depressive disorder, recurrent, moderate F33.1 [facility] [id number] [place] [address] 84740- 3890 Nov, Alcohol use disorder, severe, in sustained remission, dependence F10.21 ; Amphetamine use disorder, moderate, dependence F15.20 ; Generalized anxiety disorder F41.1 ; Major depressive disorder, recurrent episode, unspecified severity F33.9 and BMI 40.0-44.9, adult Z68.41 [place] [facility] [id number] [place] [address] 42516- 4264 Oct, [facility] [facility] [id number] [place] [address] 61822- 2060 Aug, [facility] [facility] [id number] [place] [address] 54977- 0450 Aug, Alcohol use disorder, severe, in sustained remission, dependence F10.21 ; Amphetamine use disorder, moderate, dependence F15.20 ; Generalized anxiety disorder F41.1 ; Major depressive disorder, recurrent episode, unspecified severity F33.9 and BMI 40.0-44.9, adult Z68.41 [facility] [id number] [place] [address] 13106 -1364 Aug, BMI 40.0-44.9, adult Z68.41 ; Cough R05 and Pneumonia of both lower lobes due to infectious organism J18.9 [place] [id number] [place] [address] 99356- 6375 Jul, [place] [id number] [place] [address] 50963- 1407 Jul, [place] [id number] [place] [address] 66451- 8800 Jul, Amphetamine use disorder, moderate, dependence F15.20 ; Alcohol use disorder, severe, in sustained remission, dependence F10.21 ; Generalized anxiety disorder F41.1 and Major depressive disorder, recurrent, moderate F33.1 [facility] [address] [place] [address] 24041- 3889 Jul, Major depressive disorder, recurrent, moderate F33.1 [facility] [id number] [place] [address] 78467- 6221 Jun, Major depressive disorder, recurrent, moderate F33.1 ; Generalized anxiety disorder F41.1 ; Alcohol use disorder, severe, in sustained remission, dependence F10.21 and Amphetamine use disorder, moderate, dependence F15.20 [place] [id number] [place] [address] 89344- 9701 05 May, 2017 Major depressive disorder, recurrent, moderate F33.1 ; Generalized anxiety disorder F41.1 ; Alcohol use disorder, severe, in sustained remission, dependence F10.21 and Amphetamine use disorder, moderate, dependence F15.20 [facility] [id number] [place] [address] 81311- 2596 Mar, Generalized anxiety disorder F41.1 and Major depression, recurrent, chronic F33.9 [facility] [id number] [place] [address] 19348 -5855 Feb, Decreased breath sounds R06.89 and Pneumonia of both lower lobes due to infectious organism J18.9 [facility] [id number] [place] [address] 57075- 9161 January, Generalized anxiety disorder F41.1 and Major depression, recurrent, chronic F33.9 [facility] [id number] [place] [address] 10938- 6440 Nov, Generalized anxiety disorder F41.1 and Major depression, recurrent, chronic F33.9 [facility] [id number] [place] [address] 37072- 9343 Oct, [facility] [address] [place] [address]- 5380 Oct, [facility] [id number] [place] [address] 51927- 7837 Sep, Generalized anxiety disorder F41.1 and Major depressive disorder, recurrent, moderate F33.1 [facility] [id number] [place] [address] 71436- 2636 Sep, Generalized anxiety disorder F41.1 [facility] [id number] [place] [address] 48446- 7358 Aug, Generalized anxiety disorder F41.1 [facility] [id number] [place] [address] 11758- 6407 Aug, [facility] [id number] [place] [address] 06124- 8528 Jul, [facility] [id number] [place] [address] 83250- 7746 Jul, [facility] [id number] [place] [address] 99540- 8862 Jul, [facility] [id number] [place] [address] 56540- 6699 Jun, [facility] [id number] [place] [address] 77422- 5403 Jun, Generalized anxiety disorder F41.1 and Major depression, recurrent, chronic F33.9 [facility] [id number] [place] [address] 07980- 8399 Jun, Encounter for immunization Z23 [facility] [id number] [place] [address] 74052- 3137 May, [facility] [id number] [place] [address] 21204- 6858 May, [facility] [id number] [place] [address] 87862- 6770 Apr, [facility] [address], [place] [address]- 6395 Apr, [facility] [address], [place] [address]- 9114 Mar, [facility] [address], [place] [address]- 8191 Mar, Generalized anxiety disorder F41.1 and Major depression, recurrent, chronic F33.9 [facility] [address] [id number] [id number] Mar, Encounter for dental examination Z01.20 [facility] [address], [place] [address]- 0695 Feb, [facility] [id number] [place] [address] 68980- 9283 January, [facility] [address] [place] [address] 05729- 6984 January, Generalized anxiety disorder F41.1 and Major depression, recurrent, chronic F33.9 [facility] [address], [place] [address]- 2178 Dec, [facility] [address], [place] [address]- 6315 Dec, [facility] [address], [place] [address]- 4297 Oct, [facility] [address], [place] [address]- 9521 Oct, [facility] [address], [place] [address]- 6657 Oct, [facility] [id number], [place] [address]- 8306 Oct, [facility] [address], [place] [address]- 4689 Oct, [facility] [id number] [place] [address] 49949- 4922 Oct, [facility] [id number] [place] [address] 29912- 1762 Sep, [facility] [id number] [place] [address] 26117- 3783 Sep, Generalized anxiety disorder F41.1 and Anxiety disorder, unspecified F41.9 [place] [address] 68356- 9145 Sep, Chronic obstructive pulmonary disease, unspecified COPD type J44.9 [place] [address] 29558- 3372 Aug, [place] [address] 25740- 6843 Aug, [place] [facility] [address] 25811- 4067 Aug, Generalized anxiety disorder F41.1 and Major depression, recurrent, chronic F33.[address] 07979- 1624 Aug, Otitis media, left H66.92 ; Chronic obstructive pulmonary disease, unspecified COPD type J44.9 ; Yeast dermatitis B37.2 ; Thrush B37.0 and Oral lesion K13.70 [place] [id number] [place] [address] 40342- 0157 Aug, Major depressive disorder, recurrent episode, unspecified severity F33.9 and Generalized anxiety disorder F41.1 [facility] [id number] [place] [address] [id number] Aug, Encounter for dental examination Z01.20 [place] [id number] [place] [address] 49816- 9146 Jul, Otitis media, left H66.92 and COPD exacerbation J44.1 [place] [address] 11036- 5905 Jul, [facility] [address] [place] [address] 62361- 1131 Jul, Major depression, recurrent, chronic F33.9 and Generalized anxiety disorder F41.1 [facility] [id number] [place] [address] 18369- 4640 Jul, [facility] [address] 71921- 1533 Jul, Chronic obstructive pulmonary disease, unspecified COPD type J44.9 ; Chronic respiratory failure, unsp w hypoxia or hypercapnia J96.10 ; Type 2 diabetes mellitus with diabetic neuropathy E11.40 ; Palpitation R00.2 ; Chest pain, unspecified chest pain type R07.9 ; Oral lesion K13.70 and Anxiety F41.9 [place] [address] 78346- 5565 Jun, [facility] [address] 35853- 2480 Jun, [facility] [id number] [place] [address] 30777- 5818 Jun, [place] [id number] [place] [address] 52373- 2438 Jun, [place] [id number] [place] [address] 42616- 7130 Jun, Encounter for immunization Z23 ; Panlobular emphysema J43.1 and Unspecified open wound of abdominal wall, unspecified quadrant without penetration into peritoneal cavity, initial encounter S31.109A [facility] [id number] [place] [address] 36677- 5573 Jun, Major depression F32.9 and Generalized anxiety disorder F41.1 [facility] [address] [place] [address] [id number] Jun, Dental examination Z01.20 [facility] [address] 81940- 7479 May, [facility] [id number] [place] [address] 59756- 4931 May, [facility] [address] 92327- 2389 May, Callus of foot 700 ; Wound, open, foot 892.0 ; Wound, open, abdominal wall, anterior 879.2 and Misuse of prescription only drugs 305.90 [facility] [id number] [place] [address] 80321- 1514 May, [facility] [id number] [place] [address] 30456- 8741 May, [facility] [address] 10192- 5521 May, [facility] [address] 24648- 4475 May, Skin infection 686.9 ; Cellulitis, leg 682.6 and Diabetes 250.00 [facility] [id number] [place] [address] 88517- 5447 May, [facility] [id number] [place] [address] 01482- 9178 May, [facility] [id number] [place] [address] 49541- 7443 May, [facility] [id number] [place] [address] 48805- 0549 May, Anxiety state, unspecified 300.00 and Major depression, recurrent 296.30 [facility] [id number] [place] [address] 39501- 0844 May, [facility] [id number] [place] [address] 72784- 3714 Apr, [facility] [id number] [place] [address] 31986- 1438 Apr, [facility] [address], [place] [address]- 1428 Apr, Diabetes with other specified manifestations, type II or unspecified type, not stated as uncontrolled 250.80 and Anxiety state, unspecified 300.00 [facility] [address], [place] [address]- 3679 Apr, [facility] [address] [place] [address] 07138- 0111 Apr, [facility] [address], [place] [address]- 9129 Apr, [facility] [id number] [place] [address] 05223- 9663 Apr, [facility] [address], [place] [address]- 8261 Apr, Anxiety state, unspecified 300.00 ; Insomnia 780.52 ; Otitis media of left ear 382.9 and Upper respiratory infection 465.9 [facility] [address], [place] [address]- 2633 Apr, [facility] [id number] [place] [address] 93295- 9689 Apr, [facility] [address], [place] [address]- 6762 Apr, [facility] [address] [id number] Mar, Dental examination V72.2 [facility] [address], [place] [address]- 2690 Mar, [facility] [address], [place] [address]- 1700 Mar, [facility] [address] [address] Mar, Dental examination V72.2 [facility] [address] [place] [address] 97901- 2236 Mar, [facility] [address], [place] [address]- 9935 Mar, [facility] [address] [place] [address] 98996- 3122 Mar, [facility] [address], [place] [address]- 5954 Mar, [facility] [id number] [place] [address] 933759- 9993 Mar, [facility] [address] [place] [address] 72680- 9721 Mar, Otitis media of left ear 382.9 ; Diabetes with other specified manifestations, type II or unspecified type, not stated as uncontrolled 250.80 ; Callus of foot 700 ; Oral lesion 528.9 and COPD (chronic obstructive pulmonary disease) 496 [facility] [id number] [place] [address] 95505- 9196 Mar, [facility] [address], [place] [address]- 7520 Feb, [facility] [address] [place] [address] 08689- 7041 Feb, [facility] [address], [place] [address]- 0788 Feb, [facility] [address], [place] [address]- 3797 Feb, [facility] [id number], [place] [address]- 3119 Feb, [facility] [address], [place] [address]- 6512 Feb, [facility] [id number] 6944 Feb, [facility] [address], [place] [address]- 5602 Feb, [facility] [address], [place] [address]- 5711 Feb, [facility] [address] [address]- 2306 Feb, [facility] [address], [place] [address]- 2563 Feb, [facility] [id number] [place] [address] 84763- 0906 Feb, [facility] [address], [place] [address]- 5383 Feb, COPD (chronic obstructive pulmonary disease) 496 ; Hypoxia 799.02 ; Oral lesion 528.9 and Non compliance with medical treatment V15.81 [address] [place] [address] 21988- 8586 Feb, [facility] [address] [place] [address] 85278- 2556 Feb, [facility] [address] [place] [address] [id number] Feb, Dental examination V72.2 [facility] [id number] [place] [address] [id number] Feb, Dental examination V72.2 [place] [address] [place] [address] 50646- 1016 January, [facility] [address] [place] [address] 62542 2546 January, Hypoxia 799.02 and COPD (chronic obstructive pulmonary disease) [id number] [place] [address] 05340- 4166 January, COPD (chronic obstructive pulmonary disease) 496 ; Diabetes mellitus 250.00 ; Anxiety 300.00 ; Oral aphthae 528.2 ; GERD (gastroesophageal reflux disease) 530.81 and Depression 311 [facility] [id number] [place] [address]- 7304 January, [facility] [address] [id number] [place] [address]- 6739 January, [facility] [address] [facility] [id number] [place] [address]- 7178 January, [facility] [address] [facility] [id number], [place] [address]- 7065 January, [facility] [address] [facility] [id number] [place] [address]- 8376 January, Hypoxia 799.02 and COPD (chronic obstructive pulmonary disease) 496 [facility] [address] [facility] [id number], [place] [address]- 4161 January, [facility] [address] [place] [address]- 6864 January, [facility] [id number], [place] [address]- 6806 January, [facility] [id number] [place] [address]- 2432 Dec, [facility] [address] [facility] [id number] [place] [address]- 0396 Dec, [facility] [id number] [place] [address]- [address] Nov, [facility] [address] [id number], [place] [address]- [address] Nov, [facility] [address] [facility] [id number] [place] [address]- [address] Nov, [facility] [address] [facility] [id number] [place] [address]- [address] Nov, [facility] [address] [facility] [id number] [place] [address]- 5852 Nov, [facility] [address] [id number] [place] [address]- 1721 24 Nov, 2014 [facility] [place] [facility] [address] [id number] [place] [address]- 9438 24 Nov, 2014 [facility] [place] [facility] [address] [id number] [place] [address]- 8620 19 Nov, 2014 [facility] [place] [facility] [address] [id number] [place] [address]- 8041 19 Nov, 2014 [facility] [place] [facility] [address] [id number] [place] [address]- 9458 13 Nov, 2014 [facility] [place] [facility] [address] [id number] [place] [address]- 1881 13 Nov, 2014 [facility] [place] [facility] [address] [id number] [place] [address]- 8190 13 Nov, 2014 [facility] [place] [facility] [address] [id number] [place] [address]- 2848 13 Nov, 2014 [facility] [place] [facility] [address] [id number] [place] [address]- 7834 Nov, [facility] [place] [facility] [address] [id number] [place] [address]- 9288 11 Nov, 2014 [facility] [place] [facility] [address] [id number] [place] [address]- 1319 10 Nov, 2014 [facility] [place] [facility] [address] [id number] [place] [address]- 5663 10 Nov, 2014 [facility] [place] [facility] [address] [id number] [place] [address]- 6848 Nov, 2014 [facility] [place] [facility] [address] [id number] [place] [address]- 7305 Nov, [facility] [place] [facility] [address] [id number] [place] [address]- 8928 Nov, [facility] [place] [facility] [address] [id number] [place] [address] Nov, 2014 [facility] [place] [facility] [address] [id number] [place] [address] Nov, 2014 [facility] [place] [facility] [address] [id number] [place] [address] Nov, 2014 [facility] [place] [facility] [address] [id number] [place] [address] Nov, 2014 [facility] [place] [facility] [address] [id number] [place] [address] Nov, 2014 [facility] [place] [facility] [address] [id number] [place] [address] Nov, 2014 [facility] [place] [facility] [address] [id number] [place] [address] Nov, 2014 [facility] [place] [facility] [address] [facility] [id number] [place] [address] Oct, [facility] [place] [facility] [address] [facility] [id number] [place] [address] Oct, 2014 [facility] [place] [facility] [address] [facility] [id number] [place] [address] Oct, [facility] [place] [facility] [address] [facility] [id number] [place] [address] Oct, 2014 [facility] [place] [facility] [address] [facility] [id number] [place] [address] 13 Oct, 2014 [facility] [place] [facility] [address] [facility] [id number] [place] [address] Oct, 2014 [facility] [place] [facility] [address] [id number] [place] [address] Oct, 2014 [facility] [place] [facility] [address] [facility] [id number] [place] [address] Oct, 2014 [facility] [place] [facility] [address] [facility] [id number] [place] [address] Oct, 2014 [facility] [place] [facility] [address] [facility] [id number] [place] [address] Oct, 2014 [facility] [place] [facility] [address] [id number] [place] [address] Oct, 2014 [facility] [place] [facility] [address] [id number] [place] [address] Oct, 2014 [facility] [place] [facility] [address] [id number] [place] [address] Oct, 2014 [facility] [place] [facility] [address] [id number] [place] [address] Oct, 2014 [facility] [place] [facility] [address] [id number] [place] [address] Oct, 2014 [facility] [place] [facility] [address] [facility] [id number] [place] [address] 2544 Oct, 2014 [facility] [place] [facility] [address] [facility] [id number] [place] [address]- 2541 Oct, 2014 [facility] [place] [facility] [address] [id number] [place] [address] 6[address] Sep, [facility] [place] [facility] [address] [facility] [id number] [place] [address] 2534 Sep, [facility] [place] [facility] [address] [facility] [id number] [place] [address] 42[address] Sep, [facility] [place] [facility] [address] [facility] [id number] [place] [address] 2541 Sep, [facility] [place] [facility] [address] [id number] [place] [address] 2549 Sep, [facility] [place] [facility] [address] [facility] [id number] [place] [address] 2546 Sep, [facility] [place] [facility] [address] [facility] [id number] [place] [address] 2546 Sep, [facility] [place] [facility] [address] [facility] [id number] [place] [address]- 6586 Sep, [facility] [place] [facility] [address] [id number] [place] [address]- 3219 15 Sep, 2014 [facility] [place] [facility] [address] [id number] [place] [address]- 3863 Sep, [facility] [place] [facility] [address] [id number] [place] [address]- 0130 Sep, [facility] [place] [facility] [address] [id number] [place] [address]- 0558 Sep, [facility] [place] [facility] [address] [id number] [place] [address]- 2765 Sep, [facility] [place] [facility] [address] [id number] [place] [address]- 5113 Sep, [facility] [place] [facility] [address] [id number] [place] [address]- 487[address] Sep, [facility] [place] [facility] [address] [id number] [place] [address]- 7892 Aug, [facility] [place] [facility] [address] [id number] [place] [address]- 1723 31 Aug, 2014 [facility] [place] [facility] [address] [id number] [place] [address]- 3862 29 Aug, 2014 [facility] [place] [facility] [address] [id number] [place] [address]- 2130 29 Aug, 2014 [facility] [place] [facility] [address] [id number], [place] [address] 19 Aug, 2014 [facility] [place] [facility] [address] [id number] [place] [address]- 1362 19 Aug, 2014 [facility] [place] [facility] [address] [id number] [place] [address]- 6992 18 Aug, 2014 [facility] [place] [facility] [address] [id number] [place] [address]- 6867 17 Aug, 2014 [facility] [place] [facility] [address] [id number] [place] [address]- 1883 Aug, [facility] [place] [facility] [address] [id number] [place] [address]- 3516 Aug, [facility] [place] [facility] [address] [id number] [place] [address]- 0986 Aug, [facility] [place] [facility] [address] [id number] [place] [address]- 1436 Aug, [facility] [place] [facility] [address] [id number] [place] [address]- 3959 Aug, [facility] [place] [facility] [address] [id number] [place] [address]- 5507 Aug, [facility] [place] [facility] [address] [id number] [place] [address]- 0227 Aug, [facility] [place] [facility] [address] [id number] [place] [address]- 2292 Aug, [facility] [place] [facility] [address] [id number] [place] [address]- 4843 Aug, [facility] [place] [facility] [address] [id number] [place] [address]- 8682 Aug, [facility] [place] [facility] [address] [id number] [place] [address]- 3069 Aug, [facility] [place] [facility] [address] [id number] [place] [address]- 3010 Aug, [facility] [place] [facility] [address] [id number] [place] [address]- 6732 Jul, [facility] [place] [facility] [address] [id number] [place] [address]- 2176 Jul, [facility] [place] [facility] [address] [id number] [place] [address]- 3534 Jul, [facility] [place] [facility] [address] [id number] [place] [address]- 2064 Jul, [facility] [place] [facility] [address] [id number] [place] [address]- 3571 Jul, [facility] [place] [facility] [address] [id number] [place] [address]- 2107 Jul, [facility] [place] [facility] [address] [id number] [place] [address]- 4786 Jul, [facility] [place] [facility] [address] [id number] [place] [address]- 5816 Jul, [facility] [place] [facility] [address] [id number] [place] [address]- 9461 Jul, [facility] [place] [facility] [address] [id number] [place] [address]- 0999 Jul, [facility] [place] [facility] [address] [id number] [place] [address]- 7885 Jul, [facility] [place] [facility] [address] [id number] [place] [address]- 4524 Jul, [facility] [place] [facility] [address] [id number] [place] [address]- 9000 Jul, [facility] [place] [facility] [address] [id number] [place] [address]- 2894 Jul, [facility] [place] [facility] [address] [id number] [place] [address]- 4672 Jul, [facility] [place] [facility] [address] [id number] [place] [address]- 2825 Jul, [facility] [place] [facility] [address] [id number] [place] [address]- 8139 Jul, [facility] [place] [facility] [address] [id number] [place] [address]- 3307 Jul, [facility] [place] [facility] [address] [id number] [place] [address]- 3762 Jun, [facility] [place] [facility] [address] [id number], [place] [address] 31 Jun, 2014 [facility] [place] [facility] [address] [id number] [place] [address]- 8960 30 Jun, 2014 [facility] [place] [facility] [address] [id number] [place] [address]- 2989 30 Jun, 2014 [facility] [place] [facility] [address] [id number] [place] [address]- 1514 Jun, [facility] [place] [facility] [address] [id number] [place] [address]- 1016 Jun, [facility] [place] [facility] [address] [id number] [place] [address]- 1558 Jun, [facility] [place] [facility] [address] [id number] [place] [address]- 1640 Jun, [facility] [place] [facility] [address] [id number] [place] [address]- 1695 Jun, [facility] [place] [facility] [address] [id number], [place] [address]- 8943 Jun, [facility] [place] [facility] [address] [id number] [place] [address]- 0224 Jun, [facility] [place] [facility] [address] [id number], [place] [address]- 4389 Jun, [facility] [place] [facility] [address] [id number], [place] [address]- 4307 Jun, [facility] [place] [facility] [address] [id number], [place] [address]- 7892 Jun, [facility] [place] [facility] [address] [id number] [place] [address]- 9135 Jun, [facility] [place] [facility] [address] [id number], [place] [address]- 0655 Jun, [facility] [place] [facility] [address] [id number], [place] [address]- 2558 Jun, [facility] [place] [facility] [address] [id number] [place] [address]- 3618 20 Jun, 2013 [facility] [place] [facility] [address] [id number] [place] [address] 2546 19 Sep, 2013 [facility] [place] [facility] [address] [id number] [place] [address] 2546 19 Sep, 2013 [facility] [place] [facility] [address] [id number] [place] [address] 2540 18 Sep, 2013 [facility] [place] [facility] [address] [id number] [place] [address] 2542 18 May, 2013 [facility] [place] [facility] [address] [id number] [place] [address]- 6635 15 May, 2013 [facility] [place] [facility] [address] [id number] [place] [address]- 2542 15 May, 2013 [facility] [place] [facility] [address] [id number] [place] [address]- 2549 11 May, 2013 [facility] [place] [facility] [address] [id number] [place] [address]- 2543 11 May, 2013 [facility] [place] [facility] [address] [id number] [place] [address] 2541 11 May, 2013 [facility] [place] [facility] [address] [id number] [place] [address]- 2542 11 May, 2013 [facility] [place] [facility] [address] [id number] [place] [address] 2545 11 May, 2013 [facility] [place] [facility] [address] [id number] [place] [address]- 254 11 Sep, 2013 [facility] [place] [facility] [address] [id number] [place] [address] 2547 05 Sep, 2013 [facility] [place] [facility] [address] [id number] [place] [address]- 2541 05 Sep, 2013 [facility] [place] [facility] [address] [id number] [place] [address]- 2540 May, [facility] [place] [facility] [address] [id number] [place] [address]- 9985 May, [facility] [place] [facility] [address] [id number] [place] [address]- 6680 May, [facility] [place] [facility] [address] [id number] [place] [address]- 8986 May, [facility] [place] [facility] [address] [id number] [place] [address]- 8800 Apr, [facility] [place] [facility] [address] [id number] [place] [address]- 6198 Apr, [facility] [place] [facility] [address] [id number] [place] [address]- 6730 Apr, [facility] [place] [facility] [address] [id number] [place] [address]- 6776 Apr, [facility] [place] [facility] [address] [id number] [place] [address]- 2648 Apr, [facility] [place] [facility] [address] [id number] [place] [address]- 5290 Apr, [facility] [place] [facility] [address] [id number] [place] [address]- 7473 Apr, [facility] [place] [facility] [address] [id number] [place] [address]- 5061 Apr, [facility] [place] [facility] [address] [id number] [place] [address]- 1216 Apr, [facility] [place] [facility] [address] [id number] [place] [address]- 9447 Apr, [facility] [place] [facility] [address] [id number] [place] [address]- 0435 Apr, [facility] [place] [facility] [address] [id number] [place] [address]- 9743 Apr, [facility] [place] [facility] [address] [id number] [place] [address]- 8808 Apr, [facility] [place] [facility] [address] [id number] [place] [address]- 7565 Apr, [facility] [place] [facility] [address] [id number] [place] [address]- 5397 Apr, [facility] [place] [facility] [address] [id number] [place] [address]- 0970 Apr, [facility] [place] [facility] [address] [id number] [place] [address]- 3163 Apr, [facility] [place] [facility] [address] [id number] [place] [address]- 2094 Apr, [facility] [place] [facility] [address] [id number] [place] [address]- 2439 Apr, [facility] [place] [facility] [address] [id number] [place] [address]- 1967 Apr, [facility] [place] [facility] [address] [id number] [place] [address]- 2928 Apr, [facility] [place] [facility] [address] [id number] [place] [address]- 6694 Apr, [facility] [place] [facility] [address] [id number] [place] [address]- 2398 Mar, [facility] [place] [facility] [address] [id number] [place] [address]- 4414 Mar, [facility] [place] [facility] [address] [id number] [place] [address]- 8722 Mar, [facility] [place] [facility] [address] [id number] [place] [address]- 7743 Mar, [facility] [place] [facility] [address] [id number] [place] [address]- 4530 Mar, [facility] [place] [facility] [address] [id number] [place] [address]- 1255 Mar, [facility] [place] [facility] [address] [id number] [place] [address]- 6109 Mar, 2013 [facility] [place] [facility] [address] [id number] [place] [address]- 7471 Mar, [facility] [place] [facility] [address] [id number] [place] [address]- 4939 Mar, 2013 [facility] [place] [facility] [address] [id number] [place] [address]- 7422 Mar, 2013 [facility] [place] [facility] [address] [id number] [place] [address]- 6860 Mar, 2013 [facility] [place] [facility] [address] [id number] [place] [address]- 2913 Mar, [facility] [place] [facility] [address] [id number] [place] [address]- 7397 Mar, 2013 [facility] [place] [facility] [address] [id number] [place] [address]- 2510 Mar, [facility] [place] [facility] [address] [id number] [place] [address]- 6832 Mar, [facility] [place] [facility] [address] [id number] [place] [address]- 2698 Mar, [facility] [place] [facility] [address] [id number] [place] [address]- 9012 Feb, [facility] [place] [facility] [address] [id number] [place] [address]- 9117 Feb, [facility] [place] [facility] [address] [id number] [place] [address]- 6062 Feb, [facility] [place] [facility] [address] [id number] [place] [address]- 6737 Feb, [facility] [place] [facility] [address] [id number] [place] [address]- 6889 Feb, [facility] [place] [facility] [address] [id number] [place] [address]- 8243 Feb, [facility] [place] [facility] [address] [id number] [place] [address]- 1794 Feb, [facility] [place] [facility] [address] [id number] [place] [address]- 7478 Feb, [facility] [place] [facility] [address] [id number] [place] [address]- 5109 January, [facility] [place] [facility] [address] [id number] [place] [address]- 1993 January, [facility] [place] [facility] [address] [id number] [place] [address]- 7773 January, [facility] [place] [facility] [address] [id number] [place] [address]- 5683 January, [facility] [place] [facility] [address] [id number] [place] [address]- 1155 January, [facility] [place] [facility] [address] [id number] [place] [address]- 6567 January, [facility] [place] [facility] [address] [id number] [place] [address]- 1107 January, [facility] [place] [facility] [address] [id number] [place] [address]- 5847 January, [facility] [place] [facility] [address] [id number] [place] [address]- 3033 January, [facility] [place] [facility] [address] [id number] [place] [address]- 3534 January, [facility] [place] [facility] [address] [id number] [place] [address]- 7010 Dec, [facility] [place] [facility] [address] [id number] [place] [address]- 5996 Dec, [facility] [place] [facility] [address] [id number] [place] [address]- 3378 Dec, [facility] [place] [facility] [address] [id number] [place] [address]- 0748 08 Dec, 2013 [facility] [place] [facility] [address] [id number] [place] [address]- 0276 Nov, [facility] [place] [facility] [address] [id number] [place] [address]- 0686 Nov, [facility] [place] [facility] [address] [id number] [place] [address]- 4909 Nov, [facility] [place] [facility] [address] [id number] [place] [address]- 1326 Nov, [facility] [place] [facility] [address] [id number] [place] [address]- 3867 Nov, [facility] [place] [facility] [address] [id number] [place] [address]- 4563 Nov, [facility] [place] [facility] [address] [id number] [place] [address]- 7705 Nov, [facility] [place] [facility] [address] [id number] [place] [address]- 6495 Nov, [facility] [place] [facility] [address] [id number] [place] [address]- 6251 Nov, [facility] [place] [facility] [address] [facility] [id number] [place] [address]- 4496 Nov, [facility] [place] [facility] [address] [id number] [place] [address]- 4751 Nov, [facility] [place] [facility] [address] [id number] [place] [address]- 4922 Oct, [facility] [place] [facility] [address] [id number] [place] [address]- 5374 Oct, [facility] [place] [facility] [address] [id number] [place] [address]- 1499 Oct, [facility] [place] [facility] [address] [id number] [place] [address]- 6598 Oct, [facility] [place] [facility] [address] [id number] [place] [address]- 3894 Oct, [facility] [place] [facility] [address] [id number] [place] [address]- 6046 Oct, [facility] [place] [facility] [address] [id number] [place] [address]- 5555 Oct, [facility] [place] [facility] [address] [id number] [place] [address]- 9739 Oct, [facility] [place] [facility] [address] [facility] [id number] [place] [id number] Oct, [facility] [place] [facility] [address] [id number] [place] [address]- 7437 Oct, [facility] [place] [facility] [address] [facility] [id number] [place] [address]- 4602 Oct, [facility] [place] [facility] [address] [id number] [place] [address]- 5255 Oct, [facility] [place] [facility] [address] [id number] [place] [address]- 4547 Oct, [facility] [place] [facility] [address] [facility] [id number] [place] [address]- 6438 Oct, [facility] [place] [facility] [address] [id number] [place] [address]- 1624 Oct, [facility] [place] [facility] [address] [id number] [place] [address]- 2545 Oct, [facility] [place] [facility] [address] [facility] [id number] [place] [address]- 1669 Oct, [facility] [place] [facility] [address] [facility] [id number] [place] [address]- 9020 Oct, [facility] [place] [facility] [address] [facility] [id number] [place] [address]- 3248 Oct, [facility] [place] [facility] [address] [id number] [place] [address]- 1557 10 Oct, 2013 [facility] [place] [facility] [address] [id number] [place] [address]- 8139 Oct, [facility] [place] [facility] [address] [id number] [place] [address]- 7467 Oct, [facility] [place] [facility] [address] [id number] [place] [address]- 2805 Sep, [facility] [place] [facility] [address] [id number] [place] [address]- 3799 Sep, [facility] [place] [facility] [address] [id number] [place] [address]- 8401 Sep, [facility] [place] [facility] [address] [id number] [place] [address]- 3488 Sep, [facility] [place] [facility] [address] [id number] [place] [address]- 6457 Sep, [facility] [place] [facility] [address] [id number] [place] [address]- 4642 Sep, [facility] [place] [facility] [address] [id number] [place] [address]- 0925 Sep, [facility] [place] [facility] [address] [id number] [place] [address]- 4925 Sep, [facility] [place] [facility] [address] [id number] [place] [address]- 4114 Sep, [facility] [place] [facility] [address] [id number] [place] [address]- 6630 Sep, [facility] [place] [facility] [address] [id number] [place] [address]- 0656 Sep, [facility] [place] [facility] [address] [id number] [place] [address]- 4076 15 Sep, 2013 [facility] [place] [facility] [address] [id number] [place] [address]- 4334 14 Sep, 2013 [facility] [place] [facility] [address] [id number] [place] [address]- 9453 14 Sep, 2013 [facility] [place] [facility] [address] [id number] [place] [address]- 7814 14 Sep, 2013 [facility] [place] [facility] [address] [id number] [place] [address]- 9588 Sep, [facility] [place] [facility] [address] [id number] [place] [address]- 6442 08 Sep, 2013 [facility] [place] [facility] [address] [id number] [place] [address]- 9234 Sep, [facility] [place] [facility] [address] [id number] [place] [address] 30 Aug, 2013 [facility] [place] [facility] [address] [id number] [place] [address] 30 Aug, 2013 [facility] [place] [facility] [address] [id number] [place] [address] 30 Aug, 2013 [facility] [place] [facility] [address] [id number] [place] [address] 30 Aug, 2013 [facility] [place] [facility] [address] [id number] [place] [address]245 19 Aug, 2013 [facility] [place] [facility] [address] [id number] [place] [address] 19 Aug, 2013 [facility] [place] [facility] [address] [id number], [place] [address] 18 Aug, 2013 [facility] [place] [facility] [address] [id number] [place] [address] 1477 18 Aug, 2013 [facility] [place] [facility] [address] [id number] [place] [address] 18 Aug, 2013 [facility] [place] [facility] [address] [id number] [place] [address] 18 Aug, 2013 [facility] [place] [facility] [address] [id number] [place] [address] 18 Aug, 2013 [facility] [address] [id number] [place] [address]248 18 Aug, 2013 [facility] [address] [id number] [place] [address] 3596 Aug, [facility] [address] [id number] [place] [address] Aug, [facility] [address] [id number] [place] [address] 7915 Aug, [facility] [address] [id number] [place] [address] Aug, [facility] [address] [id number] [place] [address]28 Aug, [facility] [address] [id number] [place] [address] Jul, [facility] [address] [id number] [place] [address] 76[address] Jul, [facility] [address] [id number] [place] [address] Jul, [facility] [address] [facility] [id number] [place] [address] 279[address] Jul, [facility] [address] [id number] [place] [address] 254 Jul, [facility] [address] [id number] [place] [address]- [address]45 Jul, [facility] [address] [id number] [place] [address] 27[address] Jul, [facility] [address] [facility] [id number] [place] [address] Jul, [facility] [address] [facility] [id number] [place] [address] Jul, [facility] [place] [facility] [address] [id number] [place] [address] Jul, [facility] [place] [facility] [address] [id number] [place] [address] 29[address] Jun, [facility] [place] [facility] [address] [id number] [place] [address]- [address] Jun, [facility] [place] [facility] [address] [id number] [place] [address]- 07[address] Jun, [facility] [place] [facility] [address] [id number] [place] [address] 8932 Jun, [facility] [place] [facility] [address] [id number] [place] [address]- 1134 Jun, [facility] [place] [facility] [address] [id number] [place] [address]- 3657 Jun, [facility] [place] [facility] [address] [id number], [place] [address] Jun, [facility] [place] [facility] [address] [id number] [place] [address] 7916 Jun, [facility] [place] [facility] [address] [id number], [place] [address] Jun, [facility] [place] [facility] [address] [id number], [place] [address] May, [facility] [place] [facility] [address] [id number], [place] [address] 27 May, 2013 [facility] [place] [facility] [address] [id number], [place] [address] 26 May, 2013 [facility] [place] [facility] [address] [id number], [place] [address] 8316 13 May, 2013 [facility] [place] [facility] [address] [id number], [place] [address] 7925 28 Apr, 2013 [facility] [place] [facility] [address] [id number], [place] [address] Apr, [facility] [address] [id number] [place] [address] 4706 Mar, [facility] [address] [id number] [place] [address]- 9369 Mar, [facility] [address] [id number] [place] [address]- 0451 Feb, [facility] [address] [id number] [place] [address]- [address]275 Feb, [facility] [address] [id number] [place] [address]183 January, [facility] [address] [id number] [place] [address]- [address] January, [facility] [address] [id number] [place] [address] 2932 January, [facility] [address] [id number] [place] [address] Dec, [facility] [address] [id number] [place] [address]- 9689 Dec, [facility] [address] [id number] [place] [address]- 0248 Dec, [facility] [address] [id number] [place] [address]- 6974 Dec, [facility] [place] [facility] [address] [id number] [place] [address]- 7346 Dec, [facility] [place] [facility] [address] [id number] [place] [address]- 0710 Dec, [facility] [place] [facility] [address] [id number] [place] [address] 2811 Dec, [facility] [address] [id number] [place] [address]- [address] Nov, [facility] [place] [facility] [address] [id number] [place] [address] 4070 18 Nov, 2012 [facility] [place] [facility] [address] [id number] [place] [address]- 6083 18 Nov, 2012 [facility] [place] [facility] [address] [id number] [place] [address]- [address]49 14 Nov, 2012 [facility] [place] [facility] [address] [id number] [place] [address] 2541 11 Nov, 2012 [facility] [place] [facility] [address] [id number] [place] [address]- [address] 27 Oct, 2012 [facility] [place] [facility] [address] [id number] [place] [address]- 4815 25 Oct, 2012 [facility] [place] [facility] [address] [id number] [place] [address]- 0672 22 Oct, 2012 [facility] [place] [facility] [address] [id number] [place] [address]- 2722 21 Oct, 2012 [facility] [place] [facility] [address] [id number] [place] [address]- 0060 19 Oct, 2012 [facility] [facility] [address] [id number] [place] [address] 18 Oct, 2012 [facility] [place] [facility] [address] [id number] [place] [address] 18 Oct, 2012 [facility] [place] [facility] [address] [id number] [place] [address] 284[address] 18 Oct, 2012 [facility] [place] [facility] [address] [id number] [place] [address] 15 Oct, 2012 [facility] [place] [facility] [address] [id number] [place] [address] 12 Oct, 2012 [facility] [place] [facility] [address] [id number] [place] [address] 2548 06 Oct, 2012 [facility] [place] [facility] [address] [id number] [place] [address] 05 Oct, 2012 [facility] [address] [id number] [place] [address] 4585 30 Sep, 2012 [facility] [address] [id number] [place] [address] 1073 Sep, [facility] [address] [id number] [place] [address] 6[address] Sep, [facility] [address] [id number] [place] [address] Sep, [facility] [address] [id number] [place] [address] 16[address] Sep, [facility] [address] [id number] [place] [address] 1326 Sep, [facility] [address] [id number] [place] [address] 6702 Sep, [facility] [address] [id number] [place] [address]- 42[address] Sep, [facility] [address] [id number] [place] [address] 75[address] Aug, [facility] [address] [id number] [place] [address] Aug, [facility] [address] [id number] [place] [address] 8796 Aug, [facility] [place] [facility] [address] [id number] [place] [address]- 1682 Aug, [facility] [place] [facility] [address] [id number] [place] [address]- 6666 Aug, [facility] [place] [facility] [address] [id number] [place] [address] 6316 Aug, [facility] [address] [id number] [place] [address]- 1676 Jul, [facility] [place] [facility] [address] [id number] [place] [address] 5540 Jul, [facility] [place] [facility] [address] [id number] [place] [address]- 37[address] Jul, [facility] [place] [facility] [address] [id number] [place] [address]- 7435 Jul, [facility] [place] [facility] [address] [id number] [place] [address]- 3506 Jul, [facility] [place] [facility] [address] [id number] [place] [address]- 8326 Jul, [facility] [place] [facility] [address] [id number] [place] [address]- 7898 Jul, [facility] [place] [facility] [address] [id number] [place] [address]- 0927 Jul, [facility] [address] [id number] [place] [address]- 1594 Jul, [facility] [place] [address] [id number] [place] [address]- 6071 Jul, [facility] [place] [facility] [address] [id number] [place] [address] 8492 Jul, [facility] [place] [address] [id number] [place] [address]- 1780 Jul, [facility] [place] [address] [id number] [place] [address]- 5[address] Jul, [facility] [place] [facility] [address] [id number] [place] [address]- 8960 Jul, [facility] [place] [address] [id number] [place] [address]- 4927 Jun, [facility] [place] [address] [id number] [place] [address] 6826 May, [facility] [place] [facility] [address] [id number] [place] [address] 7466 24 May, 2012 [facility] [place] [facility] [address] [id number] [place] [address] May, [facility] [place] [facility] [address] [id number] [place] [address]- 3146 May, [facility] [place] [facility] [address] [id number] [place] [address]- 7339 Apr, [facility] [place] [facility] [address] [id number] [place] [address]- 6460 Apr, [facility] [place] [address] [id number] [place] [address]- 3163 Apr, [facility] [place] [facility] [address] [id number] [place] [address]- 6828 Apr, [facility] [place] [facility] [address] [id number] [place] [address]- 4904 Apr, [facility] [facility] [address] [id number] [place] [address]- 0933 Apr, [facility] [facility] [address] [id number] [place] [address] 8[address] Mar, [facility] [address] [id number] [place] [address]- 0697 Mar, [facility] [address] [id number] [place] [address]- 9773 Feb, [facility] [address] [id number] [place] [address]- 3243 January, [facility] [address] [id number] [place] [address] 7415 January, [facility] [address] [id number] [place] [address]- 7834 January, [facility] [address] [id number] [place] [address]- 5046 January, [facility] [address] [id number] [place] [address]- 4929 Dec, [facility] [address] [id number] [place] [address]69 Dec, [facility] [address] [id number] [place] [address] 9719 29 Nov, [address] [facility] [address] [id number] [place] [address]- 5875 Nov, [facility] [address] [id number] [place] [address] 8623 Nov, [facility] [address] [id number] [place] [address]998 16 Nov, [address] [facility] [address] [id number] [place] [address]- 9030 Nov, [facility] [address] [id number] [place] [address]- [address] Nov, [facility] [address] [id number] [place] [address]- [address] Oct, [facility] [address] [id number] [place] [address]- [address] Oct, [facility] [address] [id number] [place] [address]- [address] Oct, [facility] [address] [id number] [place] [address]- [address] Sep, [facility] [address] [id number] [place] [address]- 8139 Sep, [facility] [address] [id number] [place] [address]- [address] Sep, [facility] [address] [id number] [place] [address]- 6806 Sep, [facility] [address] [id number] [place] [address]- 3995 Sep, [facility] [facility] [address] [id number] [place] [address]- 3569 Aug, [facility] [address] [id number] [place] [address]- 7019 Aug, [facility] [place] [facility] [address] [id number] [place] [address]- 1226 Aug, [facility] [place] [facility] [address] [id number] [place] [address]- 7199 Aug, [facility] [address] [id number] [place] [address]- 0553 Jul, [facility] [facility] [address] [id number] [place] [address]- 5455 Jul, [facility] [address] [id number] [place] [address]- 7203 Jul, [facility] [address] [id number] [place] [address]- 8223 Jul, [facility] [address] [id number] [place] [address]- 2300 Jul, [facility] [place] [address] [id number] [place] [address]- 8173 Jun, [facility] [address] [id number] [place] [address]- 3330 Jun, [facility] [address] [id number], [place] [address]- 6453 16 May, 2011 [facility] [address] [id number] [place] [address]- 5905 Apr, [facility] [address] [id number] [place] [address]- 2189 Dec, [facility] [address] [id number] [place] [address]- 6572 Aug, [facility] [address] [id number] [place] [address]- 5270 14 Aug, 2010 [facility] [facility] [address] [id number] [place] [address]- 6525 14 Aug, 2010 [facility] [address] [facility] [id number] [place] [address]- 7646 22 Jun, 2010 [facility] [address] [facility] [id number] [place] [address]- 1106 20 Jun, 2010 [facility] [address] [id number] [place] [address]- 2448 15 Jun, 2010 [facility] [address] [id number] [place] [address], [place] [address]- 5730 16 Aug, 2009 [facility] [address] [id number] [place] [address]- 1998 11 Aug, 2009 [facility] [address] [facility] [id number] [place] [address]- 1999 11 Aug, 2009 [facility] [address] [facility] [id number] [place] [address]- 3001 01 Aug, 2009 [facility] [address] [facility] [id number] [place] [address]- 7799 20 Jul, 2009 [facility] [address] [facility] [id number] [place] [address]- 9032 13 Jul, 2009 [facility] [facility] [address] [facility] [id number] [place] [address]- 3043 12 Jul, 2009 [facility] [address] [facility] [id number], [place] [address]- 2545 12 Jul, 2009 [facility] [address] [facility] [id number], [place] [address]- 5554 30 Jun, 2009 [facility] [address] [facility] [id number], [place] [address]- 2546 27 Jun, 2009 [facility] [address] [facility] [id number], [place] [address]- 4023 23 Jun, 2009 [facility] [address] [facility] [id number], [place] [address]- 1607 Jun, [facility] [address] [facility] [id number], [place] [address]- 9075 Jun, [facility] [address] [facility] [id number], [place] [address]- 5355 Jun, [facility] [address] [facility] [id number], [place] [address]- 4388 Jun, IMMUNIZATIONS No Known Immunizations SOCIAL HISTORY Never Assessed REASON FOR VISIT f/uWilliam RANGEL, contract was collected PLAN OF CARE Activity Details Follow Up 4 Weeks Reason: VITAL SIGNS Height 62 in 2017-08-09 Heart Rate 108 bpm 2017-08-09 Respiratory Rate 22 2017-08-09 Blood pressure systolic 114 mmHg 2017-08-09 Blood pressure diastolic 72 mmHg 2017-08-09 MEDICATIONS Medication Instructions Dosage Frequency Start Date End Date Duration Status metformin 500 mg take 1 tablet 12h Sep, Active Ipratropium-Albuterol 0.5-2.5 (3) MG/3ML Inhalation Four times a day 3 ml 6h January, Active Tresiba FlexTouch 100 UNIT/ML Subcutaneous 3 times a day PRN 10 units Active Test strips Test Strips test blood sugar Active Omeprazole 20 MG Orally Once a day 1 capsule 24h 30 Active Oxygen 2-3 L/NC nasal continuous as directed January, Active Jardiance 10 MG Orally Once a day 1 tablet 24h Active Nebulizer 1 as directed Feb, Active Trazodone HCl 100 mg Orally at bedtime 1 tablet Nov, Active Ibuprofen 800 MG TAKE 1 TABLET BY MOUTH THREE TIMES DAILY WITH FOOD MUST LAST 30 DAYS 30 Active Fluvoxamine Maleate 100 MG Orally every morning 2 tablets Mar, Active Symbicort 160-4.5 MCG/ACT Inhalation Twice a day 2 puffs 12h Apr, Not-Taking NovoLog Active Neurontin 600 MG Orally Three times a day 1 tablet 8h Aug, 30 days Active ProAir HFA 108 (90 Base) MCG/ACT INHALE 2 PUFFS BY MOUTH EVERY FOUR HOURS NEEDED FOR SHORTNESS OF BREATH OR COUGH 17 Active Klonopin 0.5 MG Orally Once a day 1 tablet 24h Mar, Active Lancets Active Loratadine 10 MG take 1 tablet by Oral route 1 time per day take at hs 24h Aug, Active HydrOXYzine HCl 50 mg Orally three times a day as needed for anxiety 2 tablet Active Daliresp 500 mcg take 1 tablet (500 mcg) by oral route once daily Jul, Active PredniSONE 40 mg Orally Once a day 1 tablet 24h Active TRUEtest Test USE TO TEST BLOOD GLUCOSE ONCE DAILY 50 Active Trulicity 0.75 MG/0.5ML 0.5 ml Not-Taking RESULTS No Results PROCEDURES Procedure Date Ordered Result Body Site [facility] VISIT ESTABLISHED PATIENT Aug 09, 2017 INSTRUCTIONS MEDICATIONS ADMINISTERED No Known Medications [...]
--- OUTSIDE RECORDS SUMMARY | 2018-02-19 11:21 | XMS REPORT ---
Author Author CONNIE ISAIAH Organization [facility] Address [address] [place] [address] Care Team Providers Care Supervisor Fertilizer Processing Name Role Phone INNAJAYLEN ISAIAH Unavailable PROBLEMS Type Condition ICD9-CM Code YDE58-FB Code Onset Dates Condition Status SNOMED Code Problem Oral lesion K13.70 Active 675078538 Problem Major depressive disorder, recurrent episode, unspecified severity F33.9 Active 69522365 Problem Chronic respiratory failure, unsp w hypoxia or hypercapnia J96.10 Active 31573564 Problem Alcohol use disorder, severe, in early remission, dependence F10.21 Active 84418527 Problem Alcohol use disorder, severe, in sustained remission, dependence F10.21 Active 17838824 Problem Major depression, recurrent, chronic F33.9 Active 09363181 Problem Generalized anxiety disorder F41.1 Active 79766170 Problem Amphetamine use disorder, moderate, dependence F15.20 Active 71744378 Problem Major depressive disorder, recurrent, moderate F33.1 Active 46433662 Problem Other specified menopausal and postmenopausal disorder 627.8 Active 654759400 Problem Chronic obstructive pulmonary disease, unspecified COPD type J44.9 Active 72459947 Problem Palpitation R00.2 Active 80673588 Problem Allergic rhinitis, cause unspecified 477.9 Active 32679132 Problem Type 2 diabetes mellitus with diabetic neuropathy E11.40 Active 89617093 Problem Chest pain, unspecified chest pain type R07.9 Active 19215904 Problem Anxiety F41.9 Active 82127527 ALLERGIES Substance Reaction Event Type Date Status Codeine Phosphate itching Drug Allergy May, Active ENCOUNTERS Encounter Location Date Diagnosis [facility] [address] [facility] [id number] [address] Dec, [facility] [address] [facility] [id number], [place] [address] Nov, Alcohol use disorder, severe, in sustained remission, dependence F10.21 ; Amphetamine use disorder, moderate, dependence F15.20 ; Generalized anxiety disorder F41.1 ; Major depressive disorder, recurrent episode, unspecified severity F33.9 and BMI 40.0-44.9, adult Z68.41 [facility] [address] [place] [address] 25204- 2716 Oct, [facility] [place] [address] [place] [address] 33820- 4203 Aug, [facility] [place] [address] 7[address]71- 2457 Aug, Alcohol use disorder, severe, in sustained remission, dependence F10.21 ; Amphetamine use disorder, moderate, dependence F15.20 ; Generalized anxiety disorder F41.1 ; Major depressive disorder, recurrent episode, unspecified severity F33.9 and BMI 40.0-44.9, adult Z68.41 [facility] [address] [place] [address] 26198 -9078 Aug, BMI 40.0-44.9, adult Z68.41 ; Cough R05 and Pneumonia of both lower lobes due to infectious organism J18.9 [facility] [address] [place] [address] 86072- 5523 Jul, [facility] [address] [place] [address] 18991- 5488 Jul, [facility] [place] [address] [place] [address] 42274- 0317 Jul, Amphetamine use disorder, moderate, dependence F15.20 ; Alcohol use disorder, severe, in sustained remission, dependence F10.21 ; Generalized anxiety disorder F41.1 and Major depressive disorder, recurrent, moderate F33.1 [facility] [place] [address] [place] [address] 61327- 6061 13 Jul, 2017 Major depressive disorder, recurrent, moderate F33.1 [facility] [place] [address] [place] [address] 28296- 8682 16 Jun, 2017 Major depressive disorder, recurrent, moderate F33.1 ; Generalized anxiety disorder F41.1 ; Alcohol use disorder, severe, in sustained remission, dependence F10.21 and Amphetamine use disorder, moderate, dependence F15.20 [facility] [address] [place] [address] 17296- 3906 May, Major depressive disorder, recurrent, moderate F33.1 ; Generalized anxiety disorder F41.1 ; Alcohol use disorder, severe, in sustained remission, dependence F10.21 and Amphetamine use disorder, moderate, dependence F15.20 [facility] [address] [place] [address] 15581- 5271 Mar, Generalized anxiety disorder F41.1 and Major depression, recurrent, chronic F33.9 [facility] [address] [place] [address] 29825 -2106 Feb, Decreased breath sounds R06.89 and Pneumonia of both lower lobes due to infectious organism J18.9 [facility] [place] [address] [place] [address] 95373- 7604 January, Generalized anxiety disorder F41.1 and Major depression, recurrent, chronic F33.9 [facility] [address] 97078- 4149 Nov, Generalized anxiety disorder F41.1 and Major depression, recurrent, chronic F33.9 [facility] [address] [place] [address] 95004- 1719 Oct, [facility] [address] [place] [address] 95621- 8414 Oct, [facility] [address] [place] [address] 55593- 2562 Sep, Generalized anxiety disorder F41.1 and Major depressive disorder, recurrent, moderate F33.1 [facility] [place] [address] [place] [address] 10671- 9866 Sep, Generalized anxiety disorder F41.1 [facility] [address] 26449- 6250 Aug, Generalized anxiety disorder F41.1 [facility] [address] [address] 06[address] Aug, [facility] [address] [address]- 1149 Jul, [facility] [address] [place] [address] 73786- 6647 Jul, [facility] [address] [place] [address] 28952- 6313 Jul, [facility] [address] [place] [address] 20634- 0592 Jun, [facility] [address] [place] [address] 73839- 2811 Jun, Generalized anxiety disorder F41.1 and Major depression, recurrent, chronic F33.9 [facility] [address] [place] [address] 99715- 8650 Jun, Encounter for immunization Z23 [facility] [address] [place] [address] 57002- 5311 May, [facility] [address] [place] [address] 43256- 8227 May, [facility] [address], [place] [address]- 2874 Apr, [facility] [address], [place] [address]- 4815 Apr, [facility] [address] [place] [address] 86061- 9345 Mar, [facility] [address] [place] [address] 90170- 8492 Mar, Generalized anxiety disorder F41.1 and Major depression, recurrent, chronic F33.9 [facility] [address] [place] [address] [id number] Mar, Encounter for dental examination Z01.20 [facility] [address], [place] [address]- 6778 Feb, [facility] [address] [place] [address] 420309- 7389 January, [facility] [address] [place] [address] 77805- 3045 January, Generalized anxiety disorder F41.1 and Major depression, recurrent, chronic F33.9 [facility] [address] [place] [address] 59178- 4821 Dec, [facility] [address] [place] [address] 98546- 1256 Dec, [facility] [address] [place] [address] 81004- 1803 Oct, [facility] [address] [place] [address] 31308- 0914 Oct, [facility] [address] [place] [address] 85190- 3071 Oct, [facility] [address] [place] [address] 89459- 6261 Oct, [facility] [address] [place] [address] 40943- 0456 Oct, [facility] [address] [place] [address] [phone]- 9433 Oct, [facility] [address] [place] [address] 97602- 8275 Sep, [facility] [address] [place] [address] [id number]- 7626 Sep, Generalized anxiety disorder F41.1 and Anxiety disorder, unspecified F41.9 [facility] [address] [place] [address] 54710- 9601 Sep, Chronic obstructive pulmonary disease, unspecified COPD type J44.9 [facility] [address] [place] [address] 72121- 9498 Aug, [facility] [address] [place] [address] 21808- 6311 Aug, [facility] [address] [place] [address] 47138- 8591 Aug, Generalized anxiety disorder F41.1 and Major depression, recurrent, chronic F33.9 [facility] [place] [address] [place] [address] 57625- 2330 Aug, Otitis media, left H66.92 ; Chronic obstructive pulmonary disease, unspecified COPD type J44.9 ; Yeast dermatitis B37.2 ; Thrush B37.0 and Oral lesion K13.70 [place] [address] [place] [address] 97932- 6211 Aug, Major depressive disorder, recurrent episode, unspecified severity F33.9 and Generalized anxiety disorder F41.1 [facility] [id number] [place] [address] [phone] Aug, Encounter for dental examination Z01.20 [facility] [address] [place] [address] 98064- 3600 Jul, Otitis media, left H66.92 and COPD exacerbation J44.1 [facility] [address] [place] [address] 98567- 2517 Jul, [facility] [address] [place] [address] 79077- 1210 Jul, Major depression, recurrent, chronic F33.9 and Generalized anxiety disorder F41.1 [facility] [address] [place] [address] 68202- 7898 Jul, [facility] [address] [place] [address] 92614- 2484 Jul, Chronic obstructive pulmonary disease, unspecified COPD type J44.9 ; Chronic respiratory failure, unsp w hypoxia or hypercapnia J96.10 ; Type 2 diabetes mellitus with diabetic neuropathy E11.40 ; Palpitation R00.2 ; Chest pain, unspecified chest pain type R07.9 ; Oral lesion K13.70 and Anxiety F41.9 [place] [address] [place] [address] 71333- 6350 Jun, [facility] [address] 87778- 8671 Jun, [place] [address] 77433- 0817 Jun, [place] [address] 65852- 1783 Jun, [place] [address] 64059- 9747 Jun, Encounter for immunization Z23 ; Panlobular emphysema J43.1 and Unspecified open wound of abdominal wall, unspecified quadrant without penetration into peritoneal cavity, initial encounter S31.109A [place] [address] 45553- 9744 Jun, Major depression F32.9 and Generalized anxiety disorder F41.1 [facility] [id number] [place] [address] [id number] Jun, Dental examination Z01.20 [place] [address] [place] [address] 70427- 5466 May, [place] [address] 60969- 9880 May, [place] [address] 14367- 5206 May, Callus of foot 700 ; Wound, open, foot 892.0 ; Wound, open, abdominal wall, anterior 879.2 and Misuse of prescription only drugs 305.[address] 39566- 4368 May, [facility] [address], [place] [address]- 5466 May, [facility] [address] [place] [address] 70386- 0779 May, [facility] [address] [place] [address] 18165- 5524 May, Skin infection 686.9 ; Cellulitis, leg 682.6 and Diabetes 250.00 [facility] [address] [place] [address] 12401- 9825 16 May, 2015 [facility] [address] [place] [address] 77774- 7119 May, [facility] [address] [place] [address] 65036- 5954 May, [facility] [address] [place] [address] 74797- 3003 May, Anxiety state, unspecified 300.00 and Major depression, recurrent 296.30 [facility] [address] [place] [address] 03231- 0802 May, [facility] [address], [place] [address]- 6820 Apr, [facility] [address], [place] [address]- 8530 Apr, [facility] [address], [place] [address]- 0288 Apr, Diabetes with other specified manifestations, type II or unspecified type, not stated as uncontrolled 250.80 and Anxiety state, unspecified 300.00 [facility] [address], [place] [address]- 9476 Apr, [facility] [address], [place] [address]- 1264 Apr, [facility] [address] [facility] [id number], [place] [address]- 6359 Apr, [facility] [address] [facility] [id number], [place] [address]- 3028 Apr, [facility] [address] [facility] [id number] 8141 Apr, Anxiety state, unspecified 300.00 ; Insomnia 780.52 ; Otitis media of left ear 382.9 and Upper respiratory infection 465.9 [facility] [address] [facility] [id number], [place] [address]- 1654 Apr, [facility] [address] [facility] [id number] [place] [address] 83714- 8043 Apr, [facility] [id number], [place] [address]- 1180 Apr, [facility] [id number] [place] [address] [id number] Mar, Dental examination V72.2 [facility] [address], [place] [address]- 7782 Mar, [facility] [address], [place] [address]- 1509 Mar, [facility] [address] [id number] Mar, Dental examination V72.2 [facility] [address], [place] [address]- 4855 Mar, [facility] [address] [facility] [id number], [place] [address]- 6553 Mar, [facility] [address] [facility] [id number], [place] [address]- 5997 Mar, [facility] [id number] 7179 Mar, [facility] [address] [place] [address] 48939- 2944 Mar, [facility] [address], [place] [address]- 0214 Mar, Otitis media of left ear 382.9 ; Diabetes with other specified manifestations, type II or unspecified type, not stated as uncontrolled 250.80 ; Callus of foot 700 ; Oral lesion 528.9 and COPD (chronic obstructive pulmonary disease) 496 [facility] [address] [place] [address] 45423- 2254 Mar, [facility] [address] [place] [address] 56357- 6323 Feb, [facility] [address] [place] [address] 57883- 7078 Feb, [facility] [address] [place] [address] 95265- 4556 Feb, [facility] [address] [place] [address] 23558- 5665 Feb, [facility] [address] [place] [address] 03192- 3268 Feb, [facility] [address] [place] [address] 23547- 1114 Feb, [facility] [address], [place] [address]- 6498 Feb, [facility] [address] [place] [address] 25229- 3793 Feb, [facility] [address], [place] [address]- 6340 Feb, [facility] [address] [place] [address] 80074- 9262 Feb, [facility] [address], [place] [address]- 0692 Feb, [facility] [address] [place] [address] 48298- 7506 Feb, [facility] [address]- 7681 Feb, COPD (chronic obstructive pulmonary disease) 496 ; Hypoxia 799.02 ; Oral lesion 528.9 and Non compliance with medical treatment V15.81 [facility] [address], [place] [address]- 9676 Feb, [facility] [address] [place] [address] 66401- 9886 Feb, [facility] [id number] [place] [address] [id number] Feb, Dental examination V72.2 [facility] [id number] [place] [address] [id number] Feb, Dental examination V72.2 [place] [address] [place] [address] 93647- 4015 January, [facility] [address] [place] [address] [id number]- 2580 January, Hypoxia 799.02 and COPD (chronic obstructive pulmonary disease) 496 [facility] [address] [place] [address] 69110- 7916 January, COPD (chronic obstructive pulmonary disease) 496 ; Diabetes mellitus 250.00 ; Anxiety 300.00 ; Oral aphthae 528.2 ; GERD (gastroesophageal reflux disease) 530.81 and Depression 311 [facility] [address] [address]- 2848 January, [facility] [address] [place] [address] 36488- 0728 January, [facility] [address] [place] [address] 34881- 9280 January, [facility] [address]- 5786 January, [facility] [address] [place] [address]- 5129 January, Hypoxia 799.02 and COPD (chronic obstructive pulmonary disease) 496 [facility] [address] [id number] [place] [address]- 4571 January, [facility] [address] [facility] [id number] [place] [address]- 2273 January, [facility] [address] [id number] [place] [address]- 9339 January, [facility] [address] [id number] [place] [address]- 7261 Dec, [facility] [address] [facility] [id number] [place] [address]- 3194 Dec, [facility] [id number] [place] [address]- 6121 Nov, [facility] [address] [facility] [id number], [place] [address]- 7951 Nov, [facility] [address] [id number] [place] [address]- 1146 Nov, [facility] [address] [facility] [id number] [place] [address]- 8602 Nov, [facility] [address] [id number], [place] [address]- 5227 Nov, [facility] [address] [id number], [place] [address]- 6934 Nov, [facility] [address] [id number] [place] [address]- 9539 Nov, [facility] [address] [facility] [id number] [place] [address]- 2010 Nov, [facility] [place] [facility] [address] [facility] [id number] [place] [address]- 3853 Nov, [facility] [address] [facility] [id number] [place] [address]- 2570 13 Nov, 2014 [facility] [place] [facility] [address] [id number] [place] [address]- 6661 13 Nov, 2014 [facility] [place] [facility] [address] [id number] [place] [address]- 3356 13 Nov, 2014 [facility] [place] [facility] [address] [id number] [place] [address]- 3613 13 Nov, 2014 [facility] [place] [facility] [address] [id number] [place] [address]- 3810 11 Nov, 2014 [facility] [place] [facility] [address] [id number] [place] [address]- 0368 11 Nov, 2014 [facility] [place] [facility] [address] [id number] [place] [address]- 1173 Nov, [facility] [place] [facility] [address] [id number] [place] [address]- 0763 Nov, [facility] [place] [facility] [address] [id number] [place] [address]- 7711 Nov, [facility] [place] [facility] [address] [id number] [place] [address]- 4255 Nov, [facility] [place] [facility] [address] [id number] [place] [address]- 1600 Nov, [facility] [place] [facility] [address] [id number] [place] [address]- 1836 Nov, [facility] [place] [facility] [address] [id number] [place] [address]- 9290 Nov, 2014 [facility] [place] [facility] [address] [id number] [place] [address]- 2553 Nov, [facility] [place] [facility] [address] [id number] [place] [address]- 5289 Nov, 2014 [facility] [place] [facility] [address] [id number] [place] [address]- 7553 Nov, 2014 [facility] [place] [facility] [address] [id number] [place] [address]- 9229 Nov, 2014 [facility] [place] [facility] [address] [id number] [place] [address]- 1799 Nov, 2014 [facility] [place] [facility] [address] [id number] [place] [address]- 4567 Oct, 2014 [facility] [place] [facility] [address] [id number] [place] [address]- 5403 Oct, 2014 [facility] [place] [facility] [address] [id number] [place] [address]- 8130 Oct, 2014 [facility] [place] [facility] [address] [id number] [place] [address]- 7700 Oct, 2014 [facility] [place] [facility] [address] [facility] [id number] [place] [address]- 5473 13 Oct, 2014 [facility] [place] [facility] [address] [id number] [place] [address]- 2390 Oct, 2014 [facility] [place] [facility] [address] [id number] [place] [address]- 1549 Oct, 2014 [facility] [place] [facility] [address] [facility] [id number] [place] [address]- 7443 Oct, 2014 [facility] [place] [facility] [address] [facility] [id number] [place] [address]- 7676 Oct, 2014 [facility] [place] [facility] [address] [id number] [place] [address]- 2541 Oct, 2014 [facility] [place] [facility] [address] [id number] [place] [address] Oct, 2014 [facility] [place] [facility] [address] [id number] [place] [address] Oct, 2014 [facility] [place] [facility] [address] [facility] [id number] [place] [address] Oct, 2014 [facility] [place] [facility] [address] [id number] [place] [address] Oct, [facility] [place] [facility] [address] [id number] [place] [address] Oct, [facility] [place] [facility] [address] [id number] [place] [address] Oct, [facility] [place] [facility] [address] [id number] [place] [address] Oct, [facility] [place] [facility] [address] [id number] [place] [address] Sep, [facility] [place] [facility] [address] [id number] [place] [address] Sep, [facility] [place] [facility] [address] [id number] [place] [address] Sep, [facility] [place] [facility] [address] [id number] [place] [address] Sep, [facility] [place] [facility] [address] [id number] [place] [address] Sep, [facility] [place] [facility] [address] [id number] [place] [address] Sep, [facility] [place] [facility] [address] [id number] [place] [address] Sep, [facility] [place] [facility] [address] [id number] [place] [address] Sep, [facility] [place] [facility] [address] [id number] [place] [address] Sep, [facility] [place] [facility] [address] [id number] [place] [address] Sep, [facility] [place] [facility] [address] [id number] [place] [address] Sep, [facility] [place] [facility] [address] [id number] [place] [address] 8[address] Sep, [facility] [place] [facility] [address] [id number] [place] [address] 2796 Sep, [facility] [place] [facility] [address] [id number] [place] [address] 6[address] Sep, [facility] [place] [facility] [address] [id number] [place] [address] 67[address] Sep, [facility] [place] [facility] [address] [id number] [place] [address] 2640 Aug, [facility] [place] [facility] [address] [id number] [place] [address]- 5831 Aug, [facility] [place] [facility] [address] [id number] [place] [address] 2817 Aug, [facility] [place] [facility] [address] [id number] [place] [address]- 1566 Aug, [facility] [place] [facility] [address] [id number] [place] [address] 4378 Aug, [facility] [place] [facility] [address] [id number] [place] [address] 5055 Aug, [facility] [place] [facility] [address] [id number] [place] [address]- 7171 18 Aug, 2014 [facility] [place] [facility] [address] [id number] [place] [address]- 0062 17 Aug, 2014 [facility] [place] [facility] [address] [id number] [place] [address]- 2506 17 Aug, 2014 [facility] [place] [facility] [address] [id number] [place] [address]- 5357 Aug, [facility] [place] [facility] [address] [id number] [place] [address]- 6534 Aug, [facility] [place] [facility] [address] [id number] [place] [address]- 1667 10 Aug, 2014 [facility] [place] [facility] [address] [id number] [place] [address]- 6552 Aug, [facility] [place] [facility] [address] [id number] [place] [address]- 0745 Aug, [facility] [place] [facility] [address] [id number] [place] [address]- 7266 Aug, [facility] [place] [facility] [address] [id number] [place] [address]- 9748 Aug, [facility] [place] [facility] [address] [id number] [place] [address]- 2752 Aug, [facility] [place] [facility] [address] [id number] [place] [address]- 0309 Aug, [facility] [place] [facility] [address] [id number] [place] [address]- 3158 Aug, [facility] [place] [facility] [address] [id number] [place] [address]- 1480 Aug, [facility] [place] [facility] [address] [id number] [place] [address]- 1567 Jul, [facility] [place] [facility] [address] [id number] [place] [address]- 5948 Jul, [facility] [place] [facility] [address] [id number] [place] [address]- 5466 Jul, [facility] [place] [facility] [address] [id number] [place] [address]- 4637 Jul, [facility] [place] [facility] [address] [id number] [place] [address]- 5612 Jul, [facility] [place] [facility] [address] [id number] [place] [address]- 1563 Jul, [facility] [place] [facility] [address] [id number] [place] [address]- 5043 Jul, [facility] [place] [facility] [address] [id number] [place] [address]- 3522 Jul, [facility] [place] [facility] [address] [id number] [place] [address]- 4072 Jul, [facility] [place] [facility] [address] [id number] [place] [address]- 0215 Jul, [facility] [place] [facility] [address] [id number] [place] [address]- 6765 Jul, [facility] [place] [facility] [address] [id number] [place] [address]- 7867 Jul, [facility] [place] [facility] [address] [id number] [place] [address]- 1211 Jul, [facility] [place] [facility] [address] [id number] [place] [address]- 8623 Jul, [facility] [place] [facility] [address] [id number] [place] [address]- 0155 Jul, [facility] [place] [facility] [address] [id number] [place] [address]- 0530 Jul, [facility] [place] [facility] [address] [id number] [place] [address]- 7721 Jul, [facility] [place] [facility] [address] [id number] [place] [address]- 2192 Jul, [facility] [place] [facility] [address] [id number] [place] [address]- 9329 Jun, [facility] [place] [facility] [address] [id number] [place] [address]- 6718 Jun, [facility] [place] [facility] [address] [id number] [place] [address]- 2359 Jun, [facility] [place] [facility] [address] [id number] [place] [address]- 7739 Jun, [facility] [place] [facility] [address] [id number] [place] [address]- 5851 29 Jun, 2014 [facility] [place] [facility] [address] [id number] [place] [address]- 1516 Jun, [facility] [place] [facility] [address] [id number] [place] [address]- 7211 Jun, [facility] [place] [facility] [address] [id number] [place] [address]- 3747 Jun, [facility] [place] [facility] [address] [id number] [place] [address]- 9444 Jun, [facility] [place] [facility] [address] [id number] [place] [address]- 9686 Jun, [facility] [place] [facility] [address] [id number] [place] [address]- 9153 Jun, [facility] [place] [facility] [address] [id number] [place] [address]- 7968 Jun, [facility] [place] [facility] [address] [id number] [place] [address]- 2167 Jun, [facility] [place] [facility] [address] [id number] [place] [address]- 7050 Jun, [facility] [place] [facility] [address] [id number] [place] [address]- 0409 Jun, [facility] [place] [facility] [address] [id number] [place] [address]- 3722 Jun, [facility] [place] [facility] [address] [id number] [place] [address]- 3495 Jun, [facility] [place] [facility] [address] [id number], [place] [address]- [address] 20 Jun, 2014 [facility] [place] [facility] [address] [id number] [place] [address]- 4409 19 May, 2014 [facility] [place] [facility] [address] [id number] [place] [address]- 0853 19 May, 2014 [facility] [place] [facility] [address] [id number] [place] [address]- 1593 18 May, 2014 [facility] [place] [facility] [address] [id number] [place] [address]- 8581 18 Sep, 2013 [facility] [place] [facility] [address] [id number] [place] [address] 2546 15 Sep, 2013 [facility] [place] [facility] [address] [id number] [place] [address]- 2546 15 Sep, 2013 [facility] [place] [facility] [address] [id number] [place] [address]- 7946 11 Sep, 2013 [facility] [place] [facility] [address] [id number] [place] [address]- 2545 11 Sep, 2013 [facility] [place] [facility] [address] [id number] [place] [address]- 5758 11 Sep, 2013 [facility] [place] [facility] [address] [id number] [place] [address]- 7189 11 Sep, 2013 [facility] [place] [facility] [address] [id number] [place] [address]- 9071 11 Sep, 2013 [facility] [place] [facility] [address] [id number] [place] [address]- 4738 11 Sep, 2013 [facility] [place] [facility] [address] [id number] [place] [address]- 254 05 Sep, 2013 [facility] [place] [facility] [address] [id number] [place] [address]- 3131 05 Sep, 2013 [facility] [place] [facility] [address] [id number] [place] [address] 2541 04 Sep, 2013 [facility] [place] [facility] [address] [id number] [place] [address]- 2547 04 Sep, 2013 [facility] [place] [facility] [address] [id number] [place] [address] 2547 04 Sep, 2013 [facility] [place] [facility] [address] [id number] [place] [address]- 2547 04 Sep, 2013 [facility] [place] [facility] [address] [id number] [place] [address]- 7249 Apr, [facility] [place] [facility] [address] [id number] [place] [address]- 5763 Apr, [facility] [place] [facility] [address] [id number] [place] [address]- 6435 Apr, [facility] [place] [facility] [address] [id number] [place] [address]- 6091 Apr, [facility] [place] [facility] [address] [id number] [place] [address]- 3793 Apr, [facility] [place] [facility] [address] [id number] [place] [address]- 5011 Apr, [facility] [place] [facility] [address] [id number] [place] [address]- 0155 Apr, [facility] [place] [facility] [address] [id number] [place] [address]- 7961 Apr, [facility] [place] [facility] [address] [id number] [place] [address]- 9583 Apr, [facility] [place] [facility] [address] [id number] [place] [address]- 1584 Apr, [facility] [place] [facility] [address] [id number] [place] [address]- 3548 Apr, [facility] [place] [facility] [address] [id number] [place] [address]- 5140 Apr, [facility] [place] [facility] [address] [id number] [place] [address]- 8184 Apr, [facility] [place] [facility] [address] [id number] [place] [address]- 8032 Apr, [facility] [place] [facility] [address] [id number] [place] [address]- 1958 Apr, [facility] [place] [facility] [address] [id number] [place] [address]- 5455 Apr, [facility] [place] [facility] [address] [id number] [place] [address]- 9361 Apr, [facility] [place] [facility] [address] [id number] [place] [address]- 1082 Apr, [facility] [place] [facility] [address] [id number] [place] [address]- 3927 Apr, [facility] [place] [facility] [address] [id number] [place] [address]- 0602 Apr, [facility] [place] [facility] [address] [id number] [place] [address]- 3169 Apr, [facility] [place] [facility] [address] [id number] [place] [address]- 3300 Apr, [facility] [place] [facility] [address] [id number] [place] [address]- 7977 Mar, [facility] [place] [facility] [address] [id number] [place] [address]- 6872 Mar, [facility] [place] [facility] [address] [id number] [place] [address]- 8366 Mar, [facility] [place] [facility] [address] [id number] [place] [address]- 6820 Mar, [facility] [place] [facility] [address] [id number] [place] [address]- 1407 Mar, [facility] [place] [facility] [address] [id number] [place] [address]- 1796 Mar, [facility] [place] [facility] [address] [id number] [place] [address]- 1269 Mar, [facility] [place] [facility] [address] [id number] [place] [address]- 1789 Mar, [facility] [place] [facility] [address] [id number] [place] [address]- 1271 Mar, [facility] [place] [facility] [address] [id number] [place] [address]- 9818 Mar, [facility] [place] [facility] [address] [id number] [place] [address]- 0442 Mar, 2013 [facility] [place] [facility] [address] [id number] [place] [address]- 4922 Mar, [facility] [place] [facility] [address] [id number] [place] [address]- 8546 Mar, 2013 [facility] [place] [facility] [address] [id number] [place] [address]- 6385 Mar, [facility] [place] [facility] [address] [id number] [place] [address]- 8346 Mar, [facility] [place] [facility] [address] [id number] [place] [address]- 5420 Mar, [facility] [place] [facility] [address] [id number] [place] [address]- 9832 Feb, [facility] [place] [facility] [address] [id number] [place] [address]- 6841 Feb, [facility] [place] [facility] [address] [id number] [place] [address]- 3145 Feb, [facility] [place] [facility] [address] [id number] [place] [address]- 3122 Feb, [facility] [place] [facility] [address] [id number] [place] [address]- 1947 Feb, [facility] [place] [facility] [address] [id number] [place] [address]- 0300 Feb, [facility] [place] [facility] [address] [id number] [place] [address]- 4576 Feb, [facility] [place] [facility] [address] [id number] [place] [address]- 9045 Feb, [facility] [place] [facility] [address] [id number] [place] [address]- 8406 January, [facility] [place] [facility] [address] [id number] [place] [address]- 1146 January, [facility] [place] [facility] [address] [id number] [place] [address]- 6793 January, [facility] [place] [facility] [address] [id number] [place] [address]- 7437 January, [facility] [place] [facility] [address] [id number] [place] [address]- 0137 January, [facility] [place] [facility] [address] [id number] [place] [address]- 4457 January, [facility] [place] [facility] [address] [id number] [place] [address]- 8193 January, [facility] [place] [facility] [address] [id number] [place] [address]- 4648 January, [facility] [place] [facility] [address] [id number] [place] [address]- 2087 January, [facility] [place] [facility] [address] [id number] [place] [address]- 6292 January, [facility] [place] [facility] [address] [id number] [place] [address]- 1038 Dec, [facility] [place] [facility] [address] [id number] [place] [address]- 9656 Dec, [facility] [place] [facility] [address] [id number] [place] [address]- 0510 Dec, [facility] [place] [facility] [address] [id number] [place] [address]- 4429 Dec, [facility] [place] [facility] [address] [id number] [place] [address]- 8783 Nov, [facility] [place] [facility] [address] [id number] [place] [address]- 5640 Nov, [facility] [place] [facility] [address] [id number] [place] [address]- 1351 Nov, [facility] [place] [facility] [address] [id number] [place] [address]- 0130 Nov, [facility] [place] [facility] [address] [id number] [place] [address]- 9167 Nov, [facility] [place] [facility] [address] [id number] [place] [address]- 8056 Nov, [facility] [place] [facility] [address] [id number] [place] [address]- 5283 Nov, [facility] [place] [facility] [address] [id number] [place] [address]- 2665 Nov, [facility] [place] [facility] [address] [id number] [place] [address]- 0338 Nov, [facility] [place] [facility] [address] [facility] [id number] [place] [address]- 7803 Nov, [facility] [place] [facility] [address] [facility] [id number] [place] [address]- 5028 Nov, [facility] [place] [facility] [address] [id number] [place] [address]- 4217 Oct, [facility] [place] [facility] [address] [id number] [place] [address]- 9495 Oct, [facility] [place] [facility] [address] [facility] [id number] [place] [address]- 8901 Oct, [facility] [place] [facility] [address] [facility] [id number] [place] [address]- 1806 Oct, [facility] [place] [facility] [address] [facility] [id number] [place] [address]- 0783 Oct, [facility] [place] [facility] [address] [id number] [place] [address]- 1615 Oct, [facility] [place] [facility] [address] [facility] [id number] [place] [address]- 7556 Oct, [facility] [place] [facility] [address] [facility] [id number] [place] [address]- 6580 Oct, [facility] [place] [facility] [address] [id number] [place] [id number] Oct, [facility] [place] [facility] [address] [id number] [place] [address]- 8441 Oct, [facility] [place] [facility] [address] [facility] [id number] [place] [address]- 5852 Oct, [facility] [place] [facility] [address] [id number] [place] [address]- 5100 Oct, [facility] [place] [facility] [address] [id number] [place] [address]- 4202 Oct, [facility] [place] [facility] [address] [facility] [id number] [place] [address]- 2317 Oct, [facility] [place] [facility] [address] [facility] [id number] [place] [address]- 0061 Oct, [facility] [place] [facility] [address] [id number] [place] [address]- 3606 Oct, [facility] [place] [facility] [address] [id number] [place] [address]- 3442 Oct, [facility] [place] [facility] [address] [facility] [id number] [place] [address]- 3014 Oct, [facility] [place] [facility] [address] [facility] [id number] [place] [address]- 4607 Oct, [facility] [place] [facility] [address] [facility] [id number] [place] [address]- 2541 Oct, [facility] [place] [facility] [address] [id number] [place] [address]- 4349 Oct, [facility] [place] [facility] [address] [facility] [id number] [place] [address]- 2076 Oct, [facility] [place] [facility] [address] [facility] [id number] [place] [address]- 9212 Sep, [facility] [place] [facility] [address] [id number] [place] [address]- 3566 Sep, [facility] [address] [id number] [place] [address]- 8086 Sep, [facility] [place] [facility] [address] [id number] [place] [address]- 1734 Sep, [facility] [address] [id number] [place] [address]- 8190 Sep, [facility] [address] [id number] [place] [address]- 1399 Sep, [facility] [place] [facility] [address] [id number] [place] [address]- 9741 Sep, [facility] [address] [id number] [place] [address]- 0684 Sep, [facility] [address] [id number] [place] [address]- 5974 Sep, [facility] [place] [facility] [address] [id number] [place] [address]- 7256 Sep, [facility] [place] [facility] [address] [id number] [place] [address]- 1447 Sep, [facility] [place] [facility] [address] [id number] [place] [address]- 6970 Sep, [facility] [place] [facility] [address] [id number] [place] [address]- 8851 Sep, [facility] [place] [facility] [address] [id number] [place] [address]- 9610 Sep, [facility] [place] [facility] [address] [id number] [place] [address]- 1558 Sep, [facility] [place] [facility] [address] [id number] [place] [address]- 8561 Sep, [facility] [place] [facility] [address] [id number] [place] [address]- 2546 08 Sep, 2013 [facility] [address] [id number] [place] [address]22 08 Sep, 2013 [facility] [place] [facility] [address] [id number] [place] [address]- 3086 30 Aug, 2013 [facility] [place] [facility] [address] [id number] [place] [address]- 9356 30 Aug, 2013 [facility] [place] [facility] [address] [id number] [place] [address]- 0726 30 Aug, 2013 [facility] [place] [facility] [address] [id number] [place] [address]- 1283 30 Aug, 2013 [facility] [place] [facility] [address] [id number] [place] [address]- 4135 19 Aug, 2013 [facility] [place] [facility] [address] [id number] [place] [address]- 7682 19 Aug, 2013 [facility] [place] [facility] [address] [id number] [place] [address]- 3788 18 Aug, 2013 [facility] [place] [facility] [address] [id number] [place] [address]- 2052 18 Aug, 2013 [facility] [place] [facility] [address] [id number] [place] [address] 18 Aug, 2013 [facility] [place] [facility] [address] [id number] [place] [address] 117[address] 18 Aug, 2013 [facility] [place] [facility] [address] [id number] [place] [address] 59[address] 18 Aug, 2013 [facility] [place] [facility] [address] [id number] [place] [address] 18 Aug, 2013 [facility] [place] [facility] [address] [id number] [place] [address]286 13 Aug, 2013 [facility] [place] [facility] [address] [id number] [place] [address] 45[address] 13 Aug, 2013 [facility] [place] [facility] [address] [id number] [place] [address] Aug, [facility] [address] [id number] [place] [address] 2669 Aug, [facility] [place] [facility] [address] [id number] [place] [address] 1752 Aug, [facility] [address] [id number] [place] [address] Jul, [facility] [place] [facility] [address] [id number] [place] [address] 35[address] Jul, [facility] [address] [id number] [place] [address] Jul, [facility] [address] [id number] [place] [address] Jul, [facility] [address] [id number] [place] [address] Jul, [facility] [address] [id number] [place] [address] 69[address] Jul, [facility] [address] [id number] [place] [address] Jul, [facility] [address] [facility] [id number] [place] [address] Jul, [facility] [place] [facility] [address] [id number] [place] [address] 0020 Jul, [facility] [address] [id number], [place] [address] Jul, [facility] [place] [facility] [address] [id number] [place] [address] 3[address] Jun, [facility] [place] [facility] [address] [id number] [place] [address] 9[address] Jun, [facility] [place] [facility] [address] [id number] [place] Jun, [facility] [place] [facility] [address] [id number] [place] [address]- 4228 Jun, [facility] [place] [facility] [address] [id number] [place] [address]- 6269 Jun, [facility] [place] [facility] [address] [id number] [place] [address]- 7576 Jun, [facility] [place] [facility] [address] [id number] [place] [address]- 5645 Jun, [facility] [place] [facility] [address] [id number] [place] [address] Jun, [facility] [place] [facility] [address] [id number] [place] [address]- 2485 Jun, [facility] [place] [facility] [address] [id number] [place] [address] 7065 May, [facility] [place] [facility] [address] [id number], [place] [address] May, [facility] [place] [facility] [address] [id number] [place] [address]- 1587 26 May, 2013 [facility] [place] [facility] [address] [id number], [place] [address] May, [facility] [place] [facility] [address] [id number], [place] [address] Apr, [facility] [place] [facility] [address] [id number], [place] [address] Apr, [facility] [place] [facility] [address] [id number], [place] [address] Mar, [facility] [place] [facility] [address] [id number], [place] [address] Mar, [facility] [place] [facility] [address] [id number], [place] [address] Feb, [facility] [place] [facility] [address] [id number], [place] [address] 07 Feb, 2013 [facility] [address] [id number] [place] [address] January, [facility] [address] [id number] [place] [address] 2739 January, [facility] [address] [facility] [id number] [place] [address] 5562 January, [facility] [address] [id number] [place] [address]- 6746 30 Dec, 2012 [facility] [address] [id number] [place] [address]- 8238 Dec, [facility] [address] [id number] [place] [address] 0498 Dec, [facility] [address] [id number] [place] [address] 2501 Dec, [facility] [address] [id number] [place] [address] 8439 Dec, [facility] [address] [id number] [place] [address]- 0125 Dec, [facility] [address] [facility] [id number] [place] [address] 1751 Dec, [facility] [address] [id number] [place] [address]- 1536 26 Nov, 2012 [facility] [place] [facility] [address] [id number] [place] [address]- 1123 18 Nov, 2012 [facility] [place] [facility] [address] [id number] [place] [address]- 8692 18 Nov, 2012 [facility] [place] [facility] [address] [id number] [place] [address]- 9343 14 Nov, 2012 [facility] [address] [id number] [place] [address]- 1123 11 Nov, 2012 [facility] [place] [facility] [address] [id number] [place] [address] 2542 27 Oct, 2012 [facility] [place] [facility] [address] [id number] [place] [address] 2546 25 Oct, 2012 [facility] [place] [facility] [address] [id number] [place] [address] 2546 22 Oct, 2012 [facility] [place] [facility] [address] [id number] [place] [address] 2546 Oct, [facility] [place] [facility] [address] [id number] [place] [address] 254 19 Oct, 2012 [facility] [place] [facility] [address] [id number] [place] [address] 2546 18 Oct, 2012 [facility] [place] [facility] [address] [facility] [id number] [place] [address] 2543 18 Oct, 2012 [facility] [place] [facility] [address] [id number] [place] [address]- 8835 18 Oct, 2012 [facility] [place] [facility] [address] [id number] [place] [address]- 2646 15 Oct, 2012 [facility] [place] [facility] [address] [facility] [id number] [place] [address]- 5453 Oct, [facility] [place] [facility] [address] [id number] [place] [address] 2545 06 Oct, 2012 [facility] [place] [facility] [address] [id number] [place] [address] 2540 05 Oct, 2012 [facility] [place] [facility] [address] [id number] [place] [address] 2546 Sep, [facility] [place] [facility] [address] [id number] [place] [address] 254 Sep, [facility] [place] [facility] [address] [id number] [place] [address]- 2547 Sep, [facility] [place] [facility] [address] [id number] [place] [address]- 3644 28 Sep, 2012 [facility] [address] [id number] [place] [address]- 5875 Sep, [facility] [place] [facility] [address] [id number] [place] [address]- 8246 Sep, [facility] [address] [id number] [place] [address]- 6432 Sep, [facility] [place] [facility] [address] [id number] [place] [address]- 5467 Sep, [facility] [address] [id number] [place] [address]- 8158 Aug, [facility] [place] [facility] [address] [id number] [place] [address]- 5744 Aug, [facility] [address] [id number] [place] [address]- 9514 Aug, [facility] [place] [facility] [address] [id number] [place] [address]- 2298 Aug, [facility] [facility] [address] [id number] [place] [address] Aug, [facility] [place] [facility] [address] [facility] [id number] [place] [address] Aug, [facility] [place] [facility] [address] [id number] [place] [address] 30 Jul, 2012 [facility] [place] [facility] [address] [id number] [place] [address]48 30 Jul, 2012 [facility] [place] [facility] [address] [id number] [place] [address] 29 Jul, 2012 [facility] [place] [facility] [address] [id number] [place] [address] Jul, [facility] [place] [facility] [address] [id number] [place] [address] Jul, [facility] [place] [facility] [address] [id number] [place] [address] Jul, [facility] [place] [facility] [address] [id number] [place] [address] Jul, [facility] [place] [facility] [address] [id number] [place] [address] Jul, [facility] [place] [facility] [address] [id number] [place] [address] Jul, [facility] [place] [facility] [address] [id number] [place] [address] Jul, [facility] [place] [facility] [address] [id number] [place] [address] Jul, [facility] [place] [facility] [address] [id number] [place] [address] Jul, [facility] [place] [facility] [address] [id number] [place] [address] Jul, [facility] [place] [facility] [address] [id number] [place] [address] Jul, [facility] [place] [facility] [address] [id number] [place] [address] Jun, [facility] [place] [facility] [address] [id number] [place] [address] May, [facility] [place] [facility] [address] [id number] [place] [address] 24 May, 2012 [facility] [place] [facility] [address] [id number] [place] [address] 08 May, 2012 [facility] [place] [facility] [address] [id number] [place] [address] May, [facility] [place] [facility] [address] [id number] [place] [address] Apr, [facility] [place] [facility] [address] [id number] [place] [address] Apr, [facility] [place] [facility] [address] [id number] [place] [address] 79[address] Apr, [facility] [place] [facility] [address] [id number] [place] [address] Apr, [facility] [place] [facility] [address] [id number] [place] [address] 4626 Apr, [facility] [place] [facility] [address] [id number] [place] [address]- 1487 Apr, [facility] [place] [address] [id number] [place] [address] 27[address] Mar, [facility] [place] [facility] [address] [id number] [place] [address] Mar, [facility] [place] [facility] [address] [id number] [place] [address] Feb, [facility] [place] [address] [id number] [place] [address] January, [facility] [place] [facility] [address] [id number] [place] [address] 9[address] January, [facility] [place] [facility] [address] [id number] [place] [address] January, [facility] [place] [facility] [address] [id number] [place] [address] 6765 January, [facility] [place] [facility] [address] [id number] [place] [address] Dec, [facility] [place] [address] [id number] [place] [address] Dec, [facility] [place] [address] [id number] [place] [address] Nov, [facility] [place] [facility] [address] [id number] [place] [address] Nov, [facility] [place] [facility] [address] [id number] [place] [address] Nov, [facility] [address] [id number] [place] [address]26 Nov, [facility] [place] [facility] [address] [id number] [place] [address] Nov, [facility] [address] [id number] [place] [address] 29[address] Nov, [facility] [address] [id number] [place] [address] Oct, [facility] [place] [facility] [address] [id number] [place] [address] Oct, [facility] [place] [address] [id number] [place] [address] Oct, [facility] [address] [id number] [place] [address] Sep, [facility] [address] [id number] [place] [address] Sep, [facility] [address] [id number] [place] [address] Sep, [facility] [address] [id number] [place] [address] 78[address] Sep, [facility] [address] [id number] [place] [address] Sep, [facility] [address] [id number] [place] [address] Aug, [facility] [address] [id number] [place] [address] 96[address] Aug, [facility] [address] [id number] [place] [address]- 2546 Aug, [facility] [place] [address] [id number] [place] [address]- [address] 06 Aug, 2011 [facility] [address] [id number] [place] [address]- 9549 10 Jul, 2011 [facility] [place] [address] [id number] [place] [address]- [address] 10 Jul, 2011 [facility] [address] [id number] [place] [address] Jul, [facility] [address] [id number] [place] [address]- 86[address] Jul, [facility] [address] [id number] [place] [address]- 95[address] Jul, [facility] [address] [id number] [place] [address]- 8637 Jun, [facility] [address] [id number] [place] [address]- 26[address] Jun, [facility] [address] [id number] [place] [address]- [address] 16 May, 2011 [facility] [address] [id number] [place] [address]- 9159 Apr, [facility] [address] [id number] [place] [address]- 7163 Dec, [facility] [address] [id number], [place] [address] 20 Aug, 2010 [facility] [address] [id number], [place] [address] 14 Aug, 2010 [facility] [address] [id number] [place] [address]- 3526 14 Aug, 2010 [facility] [address] [id number] [place] [address]- 8451 22 Jun, 2010 [facility] [address] [id number] [place] [address]- 8095 Jun, [facility] [address] [facility] [id number], [place] [address] 15 Jun, 2010 [facility] [address] [facility] [id number], [place] [address] 16 Aug, 2009 [facility] [address] [facility] [id number], [place] [address] 2546 11 Aug, 2009 [facility] [address] [facility] [id number], [place] [address] 2546 11 Aug, 2009 [facility] [address] [facility] [id number], [place] [address] 2546 Aug, [facility] [address] [facility] [id number], [place] [address]- [address] Jul, [facility] [address] [facility] [id number], [place] [address] 2546 Jul, [facility] [address] [facility] [id number], [place] [address] Jul, [facility] [address] [facility] [id number], [place] [address] 2540 Jul, [facility] [address] [facility] [id number], [place] [address] 2546 30 Jun, 2009 [facility] [address] [facility] [id number], [place] [address]- [address] 27 Jun, 2009 [facility] [address] [facility] [id number], [place] [address] 2546 23 Jun, 2009 [facility] [address] [facility] [id number], [place] [address] 2546 Jun, [facility] [address] [facility] [id number], [place] [address] 2546 Jun, [facility] [address] [facility] [id number], [place] [address]- [address]46 13 Jun, 2009 [facility] [address] [facility] [id number], [place] [address]- [address] 13 Jun, 2009 IMMUNIZATIONS No Known Immunizations SOCIAL HISTORY Never Assessed REASON FOR VISIT intake PLAN OF CARE Activity Details Follow Up 4 Weeks Reason: VITAL SIGNS Height 62 in 2017-05-25 Weight 233.4 lbs 2017-05-25 Heart Rate 96 bpm 2017-05-25 Respiratory Rate 24 2017-05-25 BMI 42.68 kg/m2 2017-05-25 Blood pressure systolic 118 mmHg 2017-05-25 Blood pressure diastolic 64 mmHg 2017-05-25 MEDICATIONS Medication Instructions Dosage Frequency Start Date End Date Duration Status Nebulizer 1 as directed Feb, Active PredniSONE 10 MG Orally Once a day 1 tablet 24h Active Fluvoxamine Maleate 100 MG Orally once a day in morning 2 tablets Mar 30 days Active Test strips Test Strips test blood sugar Active TRUEtest Test USE TO TEST BLOOD GLUCOSE ONCE DAILY 50 Active Lancets Active Loratadine 10 MG take 1 tablet by Oral route 1 time per day take at hs 24h Aug, Active Oxygen 2-3 L/NC nasal continuous as directed January, Active HydrOXYzine HCl 50 MG Orally three times a day 1 tablet as needed 8h Active Omeprazole 20 MG Orally Once a day 1 capsule 24h 30 Active NovoLog Active Symbicort 160-4.5 MCG/ACT Inhalation Twice a day 2 puffs 12h Apr, Active Tresiba FlexTouch 100 UNIT/ML Subcutaneous 3 times a day PRN 10 units Active Neurontin 600 MG Orally Three times a day 1 tablet 8h Aug, 30 days Active Daliresp 500 mcg take 1 tablet (500 mcg) by oral route once daily Jul, Active Trazodone HCl 100 MG Orally Once a day 1 tablet at bedtime 24h Nov, Active metformin 500 mg take 1 tablet 12h Sep, Active Ipratropium-Albuterol 0.5-2.5 (3) MG/3ML Inhalation Four times a day 3 ml 6h January, Active Jardiance 10 MG Orally Once a day 1 tablet 24h Active Ibuprofen 800 MG TAKE 1 TABLET BY MOUTH THREE TIMES DAILY WITH FOOD MUST LAST 30 DAYS 30 Active ProAir HFA 108 (90 Base) MCG/ACT INHALE 2 PUFFS BY MOUTH EVERY FOUR HOURS NEEDED FOR SHORTNESS OF BREATH OR COUGH 17 Active Klonopin 0.5 MG Orally please start when hext Xanax refill is due Twice a day 1 tablet 12h Mar, Active RESULTS No Results PROCEDURES Procedure Date Ordered Result Body Site [facility] VISIT ESTABLISHED PATIENT May 25, 2017 INSTRUCTIONS MEDICATIONS ADMINISTERED No Known Medications [...]
--- OUTSIDE RECORDS SUMMARY | 2018-02-19 11:42 | XMS REPORT | Continuity of Care Document ---
Author Author [facility] Address Unknown Phone Unavailable Allergies Active Description Code Type Severity Reaction Onset Reported/Identified Relationship to Patient Clinical Status Yes Pyridium Drug Allergy 09/02/2010 Yes Pyridium Drug Allergy N/A N/A 09/02/2010 Yes codeine Drug Allergy N/A N/A 06/16/2013 Yes phenazopyridine [id number] Drug Allergy Mild ITCHING 03/27/2014 Yes codeine [id number] Drug Allergy Unknown N/A 03/27/2014 Yes No Known Drug Allergies [id number] Drug Allergy Unknown N/A 03/29/2016 Yes codeine [id number] Drug Allergy Moderate hives 05/14/2016 Medications There [...] LAURA BENNETT MD 788.1 Dysuria 08/07/2008 MADL OUTREACH REP, DION L 110.4 Dermatophytosis Tinea Pedis 08/07/2008 MADL OUTREACH REP, DION L 788.1 Dysuria 08/07/2008 LOCKETT DO, SHANNA K 110.4 Dermatophytosis Tinea Pedis 08/07/2008 LOCKETT DO, SHANNA K 788.1 Dysuria 08/07/2008 LOCKETT DO, SHANNA K 110.4 Dermatophytosis Tinea Pedis 08/07/2008 LOCKETT DO, SHANNA K 788.1 Dysuria 08/07/2008 MADL OUTREACH REP, DION L 110.4 Dermatophytosis Tinea Pedis 08/07/2008 MADL OUTREACH REP, DION L 788.1 Dysuria 08/07/2008 MADL OUTREACH REP, DION L 110.4 Dermatophytosis Tinea Pedis 08/07/2008 MADL OUTREACH REP, DION L 788.1 Dysuria 08/07/2008 MADL OUTREACH REP, DION L 110.4 Dermatophytosis Tinea Pedis 08/07/2008 MADL OUTREACH REP, DION L 788.1 Dysuria 08/07/2008 LOCKETT DO, SHANNA K 110.4 Dermatophytosis Tinea Pedis 08/07/2008 LOCKETT DO, SHANNA K 788.1 Dysuria 08/07/2008 MADL OUTREACH REP, DION L 110.4 Dermatophytosis Tinea Pedis 08/07/2008 MADL OUTREACH REP, DION L 788.1 Dysuria 08/07/2008 MADL OUTREACH REP, DION L 110.4 Dermatophytosis Tinea Pedis 08/07/2008 MADL OUTREACH REP, DION L 788.1 Dysuria 08/07/2008 MADL OUTREACH REP, DION L 110.4 Dermatophytosis Tinea Pedis 08/07/2008 MADL OUTREACH REP, DION L 788.1 Dysuria 08/07/2008 MADL OUTREACH REP, DION L 110.4 Dermatophytosis Tinea Pedis 08/07/2008 MADL OUTREACH REP, DION L 788.1 Dysuria 08/07/2008 MADL OUTREACH REP, IDON L 110.4 Dermatophytosis Tinea Pedis 08/07/2008 MADL OUTREACH REP, DION L 788.1 Dysuria 08/07/2008 MADL OUTREACH REP, DION L 110.4 Dermatophytosis Tinea Pedis 08/07/2008 MADL OUTREACH REP, DION L 788.1 Dysuria 08/07/2008 MADL OUTREACH REP, DION L 110.4 Dermatophytosis Tinea Pedis 08/07/2008 MADL OUTREACH REP, DION L 788.1 Dysuria 08/07/2008 MADL OUTREACH REP, DION L 110.4 Dermatophytosis Tinea Pedis 08/07/2008 MADL OUTREACH REP, DION L 788.1 Dysuria 08/07/2008 MADL OUTREACH REP, DION L 110.4 Dermatophytosis Tinea Pedis 08/07/2008 MADL OUTREACH REP, DION L 788.1 Dysuria 08/07/2008 LOCKETT DO, SHANNA K 110.4 Dermatophytosis Tinea Pedis 08/07/2008 LOCKETT DO, SHANNA K 788.1 Dysuria 08/07/2008 CASTELLANO OUTREACH REP, BARRY R 110.4 Dermatophytosis Tinea Pedis 08/07/2008 CASTELLANO OUTREACH REP, BARRY R 788.1 Dysuria 08/07/2008 LOCKETT DO, [...] MD 780.79 Malaise And Fatigue 08/13/2008 MADL OUTREACH REP, DION L 110.2 Dermatophytosis Of Hand 08/13/2008 MADL OUTREACH REP, DION L 368.10 Visual Disturbance Unspecified 08/13/2008 MADL OUTREACH REP, DION L 780.79 Malaise And Fatigue 08/13/2008 LAURA BENNETT MD 110.2 Dermatophytosis Of Hand 08/13/2008 LAURA BENNETT MD 368.10 Visual Disturbance Unspecified 08/13/2008 LAURA BENNETT MD 780.79 Malaise And Fatigue 08/13/2008 MADL OUTREACH REP, DION L 110.2 Dermatophytosis Of Hand 08/13/2008 MADL OUTREACH REP, DION L 368.10 Visual Disturbance Unspecified 08/13/2008 MADL OUTREACH REP, DION L 780.79 Malaise And Fatigue 08/13/2008 LOCKETT DO, SHANNA K 110.2 Dermatophytosis Of Hand 08/13/2008 LOCKETT DO, SHANNA K 368.10 Visual Disturbance Unspecified 08/13/2008 LOCKETT DO, SHANNA K 780.79 Malaise And Fatigue 08/13/2008 LOCKETT DO, SHANNA K 110.2 Dermatophytosis Of Hand 08/13/2008 LOCKETT DO, SHANNA K 368.10 Visual Disturbance Unspecified 08/13/2008 LOCKETT DO, SHANNA K 780.79 Malaise And Fatigue 08/13/2008 MADL OUTREACH REP, DION L 110.2 Dermatophytosis Of Hand 08/13/2008 MADL OUTREACH REP, DION L 368.10 Visual Disturbance Unspecified 08/13/2008 MADL OUTREACH REP, DION L 780.79 Malaise And Fatigue 08/13/2008 MADL OUTREACH REP, IDON L 110.2 Dermatophytosis Of Hand 08/13/2008 MADL OUTREACH REP, DION L 368.10 Visual Disturbance Unspecified 08/13/2008 MADL OUTREACH REP, DION L 780.79 Malaise And Fatigue 08/13/2008 MADL OUTREACH REP, DION L 110.2 Dermatophytosis Of Hand 08/13/2008 MADL OUTREACH REP, DION L 368.10 Visual Disturbance Unspecified 08/13/2008 MADL OUTREACH REP, DION L 780.79 Malaise And Fatigue 08/13/2008 LOCKETT DO, SHANNA K 110.2 Dermatophytosis Of Hand 08/13/2008 LOCKETT DO, SHANNA K 368.10 Visual Disturbance Unspecified 08/13/2008 LOCKETT DO, SHANNA K 780.79 Malaise And Fatigue 08/13/2008 MADL OUTREACH REP, DION L 110.2 Dermatophytosis Of Hand 08/13/2008 MADL OUTREACH REP, DION L 368.10 Visual Disturbance Unspecified 08/13/2008 MADL OUTREACH REP, DION L 780.79 Malaise And Fatigue 08/13/2008 MADL OUTREACH REP, DION L 110.2 Dermatophytosis Of Hand 08/13/2008 MADL OUTREACH REP, DION L 368.10 Visual Disturbance Unspecified 08/13/2008 MADL OUTREACH REP, DION L 780.79 Malaise And Fatigue 08/13/2008 MADL OUTREACH REP, DION L 110.2 Dermatophytosis Of Hand 08/13/2008 MADL OUTREACH REP, DION L 368.10 Visual Disturbance Unspecified 08/13/2008 MADL OUTREACH REP, DION L 780.79 Malaise And Fatigue 08/13/2008 MADL OUTREACH REP, DION L 110.2 Dermatophytosis Of Hand 08/13/2008 MADL OUTREACH REP, DION L 368.10 Visual Disturbance Unspecified 08/13/2008 MADL OUTREACH REP, DION L 780.79 Malaise And Fatigue 08/13/2008 MADL OUTREACH REP, DION L 110.2 Dermatophytosis Of Hand 08/13/2008 MADL OUTREACH REP, DION L 368.10 Visual Disturbance Unspecified 08/13/2008 MADL OUTREACH REP, DION L 780.79 Malaise And Fatigue 08/13/2008 MADL OUTREACH REP, DION L 110.2 Dermatophytosis Of Hand 08/13/2008 MADL OUTREACH REP, DION L 368.10 Visual Disturbance Unspecified 08/13/2008 MADL OUTREACH REP, DION L 780.79 Malaise And Fatigue 08/13/2008 MADL OUTREACH REP, DION L 110.2 Dermatophytosis Of Hand 08/13/2008 MADL OUTREACH REP, DION L 368.10 Visual Disturbance Unspecified 08/13/2008 MADL OUTREACH REP, DION L 780.79 Malaise And Fatigue 08/13/2008 MADL OUTREACH REP, DION L 110.2 Dermatophytosis Of Hand 08/13/2008 MADL OUTREACH REP, DION L 368.10 Visual Disturbance Unspecified 08/13/2008 MADL OUTREACH REP, DION L 780.79 Malaise And Fatigue 08/13/2008 MADL OUTREACH REP, DION L 110.2 Dermatophytosis Of Hand 08/13/2008 MADL OUTREACH REP, DION L 368.10 Visual Disturbance Unspecified 08/13/2008 MADL OUTREACH REP, DION L 780.79 Malaise And Fatigue 08/13/2008 LOCKETT DO, SHANNA K 110.2 Dermatophytosis Of Hand 08/13/2008 LOCKETT DO, SHANNA K 368.10 Visual Disturbance Unspecified 08/13/2008 LOCKETT DO, SHANNA K 780.79 Malaise And Fatigue 08/13/2008 JACKELINE CASTELLANO APRNRICIA R 110.2 Dermatophytosis Of Hand 08/13/2008 CASTELLANO OUTREACH REP, BARRY R 368.10 Visual Disturbance Unspecified 08/13/2008 [...] BINDU PALM MD 466.0 Acute Bronchitis 01/24/2009 BIDNU PALM MD 786.2 Cough 01/24/2009 SHELBI OUTREACH REP, CARLINE S 466.0 Acute Bronchitis 01/24/2009 SHELBI OUTREACH REP, CARLINE S 786.2 Cough 01/24/2009 SHELBI OUTREACH REP, CARLINE S 466.0 Acute Bronchitis 01/24/2009 SHELBI OUTREACH REP, CARLINE S 786.2 Cough 01/24/2009 LAURA BENNETT MD 466.0 Acute Bronchitis 01/24/2009 LAURA BENNETT MD 786.2 Cough 01/24/2009 LOBITO MOREIRA, ELIZABETH N 466.0 Acute Bronchitis 01/24/2009 LOBITO MOREIRA, ELIZABETH N 786.2 Cough 01/24/2009 LAURA BENNETT MD 466.0 Acute Bronchitis 01/24/2009 LAURA BENNETT MD 786.2 Cough 01/24/2009 LOCKETT DO, SHANNA K 466.0 Acute Bronchitis 01/24/2009 LOCKETT DO, SHANNA K 786.2 Cough 01/24/2009 MARIEE CASHERO OUTREACH REP, MARTÍNEZ N 466.0 Acute Bronchitis 01/24/2009 MARIEE CASHERO OUTREACH REP, MARTÍNEZ N 786.2 Cough 01/24/2009 NÉSTOR MOREIRA, BINDU M 466.0 Acute Bronchitis 01/24/2009 BINDU PALM MD M 786.2 Cough 01/24/2009 MARIEE CASHERO OUTREACH REP, MARTÍNEZ N 466.0 Acute Bronchitis 01/24/2009 MARIEE CASHERO OUTREACH REP, MARTÍNEZ N 786.2 Cough 01/24/2009 JJ OUTREACH REP, ANNEL FRANCES 466.0 Acute Bronchitis 01/24/2009 JJ OUTREACH REP, ANNEL FRANCES 786.2 Cough 01/24/2009 LAURA BENNETT MD 466.0 Acute Bronchitis 01/24/2009 LAURA BENNETT MD 786.2 Cough 01/24/2009 MADL OUTREACH REP, DION L 466.0 Acute Bronchitis 01/24/2009 MADL OUTREACH REP, DION L 786.2 Cough 01/24/2009 LAURA BENNETT MD 466.0 Acute Bronchitis 01/24/2009 LAURA BENNETT MD 786.2 Cough 01/24/2009 MADL OUTREACH REP, DION L 466.0 Acute Bronchitis 01/24/2009 MADL OUTREACH REP, DION L 786.2 Cough 01/24/2009 LOCKETT DO, SHANNA K 466.0 Acute Bronchitis 01/24/2009 LOCKETT DO, SHANNA K 786.2 Cough 01/24/2009 LOCKETT DO, SHANNA K 466.0 Acute Bronchitis 01/24/2009 LOCKETT DO, SHANNA K 786.2 Cough 01/24/2009 MADL OUTREACH REP, DION L 466.0 Acute Bronchitis 01/24/2009 MADL OUTREACH REP, DION L 786.2 Cough 01/24/2009 MADL OUTREACH REP, DION L 466.0 Acute Bronchitis 01/24/2009 MADL OUTREACH REP, DION L 786.2 Cough 01/24/2009 MADL OUTREACH REP, DION L 466.0 Acute Bronchitis 01/24/2009 MADL OUTREACH REP, DION L 786.2 Cough 01/24/2009 LOCKETT DO, SHANNA K 466.0 Acute Bronchitis 01/24/2009 LOCKETT DO, SHANNA K 786.2 Cough 01/24/2009 MADL OUTREACH REP, DION L 466.0 Acute Bronchitis 01/24/2009 MADL OUTREACH REP, DION L 786.2 Cough 01/24/2009 MADL OUTREACH REP, DION L 466.0 Acute Bronchitis 01/24/2009 MADL OUTREACH REP, DION L 786.2 Cough 01/24/2009 MADL OUTREACH REP, DION L 466.0 Acute Bronchitis 01/24/2009 MADL OUTREACH REP, DION L 786.2 Cough 01/24/2009 MADL OUTREACH REP, DION L 466.0 Acute Bronchitis 01/24/2009 MADL OUTREACH REP, DION L 786.2 Cough 01/24/2009 MADL OUTREACH REP, DION L 466.0 Acute Bronchitis 01/24/2009 MADL OUTREACH REP, DION L 786.2 Cough 01/24/2009 MADL OUTREACH REP, DION L 466.0 Acute Bronchitis 01/24/2009 MADL OUTREACH REP, DION L 786.2 Cough 01/24/2009 MADL OUTREACH REP, DION L 466.0 Acute Bronchitis 01/24/2009 MADL OUTREACH REP, DION L 786.2 Cough 01/24/2009 MADL OUTREACH REP, DION L 466.0 Acute Bronchitis 01/24/2009 MADL OUTREACH REP, DOIN L 786.2 Cough 01/24/2009 MADL OUTREACH REP, DION L 466.0 Acute Bronchitis 01/24/2009 MADL OUTREACH REP, DION L 786.2 Cough 01/24/2009 LOCKETT DO, SHANNA K 466.0 Acute Bronchitis 01/24/2009 LOCKETT DO, SAHNNA K 786.2 Cough 01/24/2009 RENO CASTELLANO APRNIA R 466.0 Acute Bronchitis 01/24/2009 CASTELLANO OUTREACH REP, BARRY R 786.2 Cough 01/24/2009 SHANNA LOCKETT [...] 054.10 HERPES SIMPLEX TYPE II 05/17/2009 MAD OUTREACH REP, DION L 799.02 HYPOXIA 05/17/2009 LAURA BENNETT MD 054.10 HERPES SIMPLEX TYPE II 05/17/2009 LAURA BENNETT MD 799.02 HYPOXIA 05/17/2009 MAD KATEY, DION L 054.10 HERPES SIMPLEX TYPE II 05/17/2009 [facility] KATEY, DION L 799.02 HYPOXIA 05/17/2009 LOCKETT DO SHANNA K 054.10 HERPES SIMPLEX TYPE II 05/17/2009 LOCKETT DO, SHANNA K 799.02 HYPOXIA 05/17/2009 LOCKETT DO, SHANNA K 054.10 HERPES SIMPLEX TYPE II 05/17/2009 LOCKETT DO, SHANNA K 799.02 HYPOXIA 05/17/2009 MAD OUTREACH REP, DION L 054.10 HERPES SIMPLEX TYPE II 05/17/2009 MAD OUTREACH REP, DION L 799.02 HYPOXIA 05/17/2009 MAD OUTREACH REP, DION L 054.10 HERPES SIMPLEX TYPE II 05/17/2009 MAD OUTREACH REP, DION L 799.02 HYPOXIA 05/17/2009 MAD OUTREACH REP, DION L 054.10 HERPES SIMPLEX TYPE II 05/17/2009 MADL OUTREACH REP, DION L 799.02 HYPOXIA 05/17/2009 LOCKETT DO SHANNA K 054.10 HERPES SIMPLEX TYPE II 05/17/2009 LOCKETT DO, SHANNA K 799.02 HYPOXIA 05/17/2009 MAD OUTREACH REP, DION L 054.10 HERPES SIMPLEX TYPE II 05/17/2009 MAD OUTREACH REP, DION L 799.02 HYPOXIA 05/17/2009 MADL OUTREACH REP, DION L 054.10 HERPES SIMPLEX TYPE II 05/17/2009 MAD OUTREACH REP, DION L 799.02 HYPOXIA 05/17/2009 MADL OUTREACH REP, DION L 054.10 HERPES SIMPLEX TYPE II 05/17/2009 MAD OUTREACH REP, DION L 799.02 HYPOXIA 05/17/2009 MAD OUTREACH REP, DION L 054.10 HERPES SIMPLEX TYPE II 05/17/2009 MAD OUTREACH REP, DION L 799.02 HYPOXIA 05/17/2009 MAD OUTREACH REP, DION L 054.10 HERPES SIMPLEX TYPE II 05/17/2009 MAD OUTREACH REP, DION L 799.02 HYPOXIA 05/17/2009 MAD OUTREACH REP, DION L 054.10 HERPES SIMPLEX TYPE II 05/17/2009 [facility] OUTREACH REP, DION L 799.02 HYPOXIA 05/17/2009 [facility] OUTREACH REP, DION L 054.10 HERPES SIMPLEX TYPE II 05/17/2009 [facility] OUTREACH REP, DION L 799.02 HYPOXIA 05/17/2009 MAD OUTREACH REP, DION L 054.10 HERPES SIMPLEX TYPE II 05/17/2009 MAD OUTREACH REP, DION L 799.02 HYPOXIA 05/17/2009 MAD OUTREACH REP, DION L 054.10 HERPES SIMPLEX TYPE II 05/17/2009 MAD OUTREACH REP, DION L 799.02 HYPOXIA 05/17/2009 GRANT LOCKETT [...] , CHILDBIRTH, OR THE PUERPERIUM 07/02/2009 MADL OUTREACH REP, DION L 649.0 TOBACCO USE DISORDER COMPLICATING , CHILDBIRTH, OR THE PUERPERIUM 07/02/2009 MADL OUTREACH REP, DION L 649.0 TOBACCO USE DISORDER COMPLICATING , CHILDBIRTH, OR THE PUERPERIUM 07/02/2009 MADL OUTREACH REP, DION L 649.0 TOBACCO USE DISORDER COMPLICATING , CHILDBIRTH, OR THE PUERPERIUM 07/02/2009 SHANNA LOCKETT DO K 649.0 TOBACCO USE DISORDER COMPLICATING , CHILDBIRTH, OR THE PUERPERIUM 07/02/2009 MADL OUTREACH REP, DION L 649.0 TOBACCO USE DISORDER COMPLICATING , CHILDBIRTH, OR THE PUERPERIUM 07/02/2009 MADL OUTREACH REP, DION L 649.0 TOBACCO USE DISORDER COMPLICATING , CHILDBIRTH, OR THE PUERPERIUM 07/02/2009 MADL OUTREACH REP, DION L 649.0 TOBACCO USE DISORDER COMPLICATING , CHILDBIRTH, OR THE PUERPERIUM 07/02/2009 MADL OUTREACH REP, DION L 649.0 TOBACCO USE DISORDER COMPLICATING , CHILDBIRTH, OR THE PUERPERIUM 07/02/2009 MADL OUTREACH REP, DION L 649.0 TOBACCO USE DISORDER COMPLICATING , CHILDBIRTH, OR THE PUERPERIUM 07/02/2009 MADL OUTREACH REP, DION L 649.0 TOBACCO USE DISORDER COMPLICATING , CHILDBIRTH, OR THE PUERPERIUM 07/02/2009 MADL OUTREACH REP, DION L 649.0 TOBACCO USE DISORDER COMPLICATING , CHILDBIRTH, OR THE PUERPERIUM 07/02/2009 MADL OUTREACH REP, DION L 649.0 TOBACCO USE DISORDER COMPLICATING , CHILDBIRTH, OR THE PUERPERIUM 07/02/2009 MADL OUTREACH REP, DION L 649.0 TOBACCO USE DISORDER COMPLICATING [...] MD 305.1 NICOTINE DEPENDENCE 07/09/2009 MARIEE RAJWINDER OUTREACH REP, MARTÍNEZ N 305.1 NICOTINE DEPENDENCE 07/09/2009 ANNEL JJ APRN 305.1 NICOTINE DEPENDENCE 07/09/2009 LAURA BENNETT MD 305.1 NICOTINE DEPENDENCE 07/09/2009 MADL OUTREACH REP, DION L 305.1 NICOTINE DEPENDENCE 07/09/2009 LAURA BENNETT MD 305.1 NICOTINE DEPENDENCE 07/09/2009 MADL OUTREACH REP, DION L 305.1 NICOTINE DEPENDENCE 07/09/2009 LOCKETT DO, SHANNA K 305.1 NICOTINE DEPENDENCE 07/09/2009 LOCKETT DO, SHANNA K 305.1 NICOTINE DEPENDENCE 07/09/2009 MADL OUTREACH REP, DION L 305.1 NICOTINE DEPENDENCE 07/09/2009 MADL OUTREACH REP, DION L 305.1 NICOTINE DEPENDENCE 07/09/2009 MADL OUTREACH REP, DION L 305.1 NICOTINE DEPENDENCE 07/09/2009 LOCKETT DO, SHANNA K 305.1 NICOTINE DEPENDENCE 07/09/2009 MADL OUTREACH REP, DION L 305.1 NICOTINE DEPENDENCE 07/09/2009 MADL OUTREACH REP, DION L 305.1 NICOTINE DEPENDENCE 07/09/2009 MADL OUTREACH REP, DION L 305.1 NICOTINE DEPENDENCE 07/09/2009 MADL OUTREACH REP, DION L 305.1 NICOTINE DEPENDENCE 07/09/2009 MADL OUTREACH REP, DION L 305.1 NICOTINE DEPENDENCE 07/09/2009 MADL OUTREACH REP, DION L 305.1 NICOTINE DEPENDENCE 07/09/2009 MADL OUTREACH REP, DION L 305.1 NICOTINE DEPENDENCE 07/09/2009 MADL OUTREACH REP, DION L 305.1 NICOTINE DEPENDENCE 07/09/2009 MADL OUTREACH REP, DION L 305.1 NICOTINE DEPENDENCE 07/09/2009 LOCKETT [...] MD CHRONIC OBSTRUCTIVE PULMONARY DISEASE 07/16/2009 MADL OUTREACH REP, DION L 496 CHRONIC OBSTRUCTIVE PULMONARY DISEASE 07/16/2009 LOCKETT DO, SHANNA K 496 CHRONIC OBSTRUCTIVE PULMONARY DISEASE 07/16/2009 LOCKETT DO, SHANNA K 496 CHRONIC OBSTRUCTIVE PULMONARY DISEASE 07/16/2009 MADL OUTREACH REP, DION L 496 CHRONIC OBSTRUCTIVE PULMONARY DISEASE 07/16/2009 MADL OUTREACH REP, DION L 496 CHRONIC OBSTRUCTIVE PULMONARY DISEASE 07/16/2009 MADL OUTREACH REP, DION L 496 CHRONIC OBSTRUCTIVE PULMONARY DISEASE 07/16/2009 LOCKETT DO, SHANNA K 496 CHRONIC OBSTRUCTIVE PULMONARY DISEASE 07/16/2009 MADL OUTREACH REP, DION L 496 CHRONIC OBSTRUCTIVE PULMONARY DISEASE 07/16/2009 MADL OUTREACH REP, DION L 496 CHRONIC OBSTRUCTIVE PULMONARY DISEASE 07/16/2009 MADL OUTREACH REP, DION L 496 CHRONIC OBSTRUCTIVE PULMONARY DISEASE 07/16/2009 MADL OUTREACH REP, DION L 496 CHRONIC OBSTRUCTIVE PULMONARY DISEASE 07/16/2009 MADL OUTREACH REP, DION L 496 CHRONIC OBSTRUCTIVE PULMONARY DISEASE 07/16/2009 MADL OUTREACH REP, DION L 496 CHRONIC OBSTRUCTIVE PULMONARY DISEASE 07/16/2009 MADL OUTREACH REP, DION L 496 CHRONIC OBSTRUCTIVE PULMONARY DISEASE 07/16/2009 MADL OUTREACH REP, DION L 496 CHRONIC OBSTRUCTIVE PULMONARY DISEASE 07/16/2009 MADL OUTREACH REP, DION L 496 CHRONIC OBSTRUCTIVE PULMONARY DISEASE [...] TORO, DION L 682.9 Cellulitis 02/24/2010 MADL OUTREACH REP, DION L 682.9 Cellulitis 02/24/2010 MADL OUTREACH REP, DION L 682.9 Cellulitis 02/24/2010 LOCKETT DO, SHANNA K 682.9 Cellulitis 02/24/2010 MADL OUTREACH REP, DION L 682.9 Cellulitis 02/24/2010 MADL OUTREACH REP, DION L 682.9 Cellulitis 02/24/2010 MADL OUTREACH REP, DION L 682.9 Cellulitis 02/24/2010 MADL OUTREACH REP, DION L 682.9 Cellulitis 02/24/2010 MADL OUTREACH REP, DION L 682.9 Cellulitis 02/24/2010 MADL OUTREACH REP, DION L 682.9 Cellulitis 02/24/2010 MADL OUTREACH REP, DION L 682.9 Cellulitis 02/24/2010 MADL OUTREACH REP, DION L 682.9 Cellulitis 02/24/2010 MADL OUTREACH REP, DION L 682.9 Cellulitis 02/24/2010 LOCKETT DO, SHANNA K 682.9 Cellulitis 02/24/2010 CASTELLANO OUTREACH REP, BARRY R 682.9 Cellulitis 02/24/2010 LOCKETT DO, [...] Screening Exam Bact/spirochetal Venereal Disease 03/11/2010 SHELBI OUTREACH REP, CARLINE S V72.31 Pelvic Exam (internal) 03/11/2010 SHELBI OUTREACH REP, CARLINE S V74.5 Visit For: Screening Exam Bact/spirochetal Venereal Disease 03/11/2010 SHELBI OUTREACH REP, CARLINE S V72.31 Pelvic Exam (internal) 03/11/2010 SHELBI OUTREACH REP, CARLINE S V74.5 Visit For: Screening Exam [...] Exam Bact/spirochetal Venereal Disease 03/11/2010 JAYLENE PURDY OUTREACH REP, MARTÍNEZ N V72.31 Pelvic Exam (internal) 03/11/2010 MARIEE GRISELDAERO OUTREACH REP, MARTÍNEZ N V74.5 Visit For: Screening Exam Bact/spirochetal Venereal Disease 03/11/2010 BINDU PALM MD V72.31 Pelvic Exam (internal) 03/11/2010 BINDU PALM MD V74.5 Visit For: Screening Exam Bact/spirochetal Venereal Disease 03/11/2010 MARIEE RAJWINDER OUTREACH REP, MARTÍNEZ N V72.31 Pelvic Exam (internal) 03/11/2010 JAYLENE VILLALOBOSERO OUTREACH REP, MARTÍNEZ N V74.5 Visit For: Screening Exam [...] For: Screening Exam Bact/spirochetal Venereal Disease 03/11/2010 LVEY CARRANZA SHANNA K V72.31 Pelvic Exam (internal) 03/11/2010 LEVY CARRANZA SHANNA K V74.5 Visit For: Screening Exam Bact/spirochetal Venereal Disease 03/11/2010 LEVY CARRANZA SHANNA K V72.31 Pelvic Exam (internal) 03/11/2010 LOCKETT DO SHANNA K V74.5 Visit For: Screening Exam Bact/spirochetal Venereal Disease 03/11/2010 MADL OUTREACH REP, DION L V72.31 Pelvic Exam (internal) 03/11/2010 MADL OUTREACH REP, DION L V74.5 Visit For: Screening Exam Bact/spirochetal Venereal Disease 03/11/2010 MADL OUTREACH REP, DION L V72.31 Pelvic Exam (internal) 03/11/2010 MADL OUTREACH REP, DION L V74.5 Visit For: Screening Exam Bact/spirochetal Venereal Disease 03/11/2010 MADL OUTREACH REP, DION L V72.31 Pelvic Exam (internal) 03/11/2010 MADL OUTREACH REP, DION L V74.5 Visit For: Screening Exam Bact/spirochetal Venereal Disease 03/11/2010 LOCKETT DO SHANNA K V72.31 Pelvic Exam (internal) 03/11/2010 LEVY CARRANZA SHANNA K V74.5 Visit For: Screening Exam Bact/spirochetal Venereal Disease 03/11/2010 MADL OUTREACH REP, DION L V72.31 Pelvic Exam (internal) 03/11/2010 MADL OUTREACH REP, DION L V74.5 Visit For: Screening Exam Bact/spirochetal Venereal Disease 03/11/2010 MADL OUTREACH REP, DION L V72.31 Pelvic Exam (internal) 03/11/2010 MADL OUTREACH REP, DION L V74.5 Visit For: Screening Exam Bact/spirochetal Venereal Disease 03/11/2010 MADL OUTREACH REP, DION L V72.31 Pelvic Exam (internal) 03/11/2010 MADL OUTREACH REP, DION L V74.5 Visit For: Screening Exam Bact/spirochetal Venereal Disease 03/11/2010 MADL OUTREACH REP, DION L V72.31 Pelvic Exam (internal) 03/11/2010 MADL OUTREACH REP, DION L V74.5 Visit For: Screening Exam Bact/spirochetal Venereal Disease 03/11/2010 MADL OUTREACH REP, DION L V72.31 Pelvic Exam (internal) 03/11/2010 MADL OUTREACH REP, DION L V74.5 Visit For: Screening Exam Bact/spirochetal Venereal Disease 03/11/2010 MADL OUTREACH REP, DION L V72.31 Pelvic Exam (internal) 03/11/2010 MADL OUTREACH REP, DION L V74.5 Visit For: Screening Exam Bact/spirochetal Venereal Disease 03/11/2010 MADL OUTREACH REP, DION L V72.31 Pelvic Exam (internal) 03/11/2010 MADL OUTREACH REP, DION L V74.5 Visit For: Screening Exam Bact/spirochetal Venereal Disease 03/11/2010 MADL OUTREACH REP, DION L V72.31 Pelvic Exam (internal) 03/11/2010 MADL OUTREACH REP, DION L V74.5 Visit For: Screening Exam Bact/spirochetal Venereal Disease 03/11/2010 MADL OUTREACH REP, DOIN L V72.31 Pelvic Exam (internal) 03/11/2010 MADL OUTREACH REP, DION L V74.5 Visit For: Screening Exam [...] DO, SHANNA K 278.00 OBESITY 03/28/2010 MADL OUTREACH REP, DION L 278.00 OBESITY 03/28/2010 MADL OUTREACH REP, DION L 278.00 OBESITY 03/28/2010 MADL OUTREACH REP, DION L 278.00 OBESITY 03/28/2010 LOCKETT DO SHANNA K 278.00 OBESITY 03/28/2010 MADL OUTREACH REP, DION L 278.00 OBESITY 03/28/2010 MADL OUTREACH REP, DION L 278.00 OBESITY 03/28/2010 MADL OUTREACH REP, DION L 278.00 OBESITY 03/28/2010 MADL OUTREACH REP, DION L 278.00 OBESITY 03/28/2010 MADL OUTREACH REP, DION L 278.00 OBESITY 03/28/2010 MADL OUTREACH REP, DION L 278.00 OBESITY 03/28/2010 MADL OUTREACH REP, DION L 278.00 OBESITY 03/28/2010 MADL OUTREACH REP, DION L 278.00 OBESITY 03/28/2010 MADL OUTREACH REP, DION L 278.00 OBESITY 03/28/2010 LEVY DO SHANNA K 278.00 OBESITY 03/28/2010 CASTELLANO OUTREACH REP, BARRY R 278.00 OBESITY 03/28/2010 GRANT LOCKETT [...] MD 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 07/04/2010 SHELBI OUTREACH REP, CARLINE S 296.32 MO DEPRESSIVE RECURRENT MODERATE 07/04/2010 SHELBI OUTREACH REP, CARLINE S 300.02 AN GEN ANXIETY 07/04/2010 SHELBI OUTREACH REP, CARLINE S 301.9 PD PERS DIS NOS 07/04/2010 SHELBI OUTREACH REP, CARLINE S 303.90 SA ALCOHOLISM UNSPECI 07/04/2010 SHELBI OUTREACH REP, CARLINE S 305.20 SA CANNABIS ABUSE 07/04/2010 SHELBI OUTREACH REP, CARLINE S 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 07/04/2010 SHELBI OUTREACH REP, CARLINE S 296.32 MO DEPRESSIVE RECURRENT MODERATE 07/04/2010 SHELIB OUTREACH REP, CARLINE S 300.02 AN GEN ANXIETY 07/04/2010 SHELBI OUTREACH REP, CARLINE S 301.9 PD PERS DIS NOS 07/04/2010 SHELBI OUTREACH REP, CARLINE S 303.90 SA ALCOHOLISM UNSPECI 07/04/2010 SHELBI OUTREACH REP, CARLINE S 305.20 SA CANNABIS ABUSE 07/04/2010 SHELBI OUTREACH REP, CARLINE S 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 07/04/2010 [...] 300.02 AN GEN ANXIETY 07/04/2010 MARIEE GRISELDAERO OUTREACH REP, MARTÍNEZ N 301.9 PD PERS DIS NOS [...] MD 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 07/04/2010 MADL OUTREACH REPRADHA HaleDION L 296.32 MO DEPRESSIVE RECURRENT MODERATE 07/04/2010 MADL OUTREACH REP, DION L 300.02 AN GEN ANXIETY 07/04/2010 MADL OUTREACH REP, DION L 301.9 PD PERS DIS NOS 07/04/2010 MADL OUTREACH REP, DION L 303.90 SA ALCOHOLISM UNSPECI 07/04/2010 BIRDIEL OUTREACH REPLIANA HaleNYA L 305.20 SA CANNABIS ABUSE 07/04/2010 [...] 305.20 SA CANNABIS ABUSE 07/04/2010 BIRDIEL LIANA DLE TORONYA L 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 07/04/2010 [...] K 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 07/04/2010 MADL OUTREACH REPLIANA HaleNYA L 296.32 MO DEPRESSIVE RECURRENT MODERATE 07/04/2010 MADL OUTREACH REPLIANA HaleNYA L 300.02 AN GEN ANXIETY 07/04/2010 MADL OUTREACH REPLIANA HaleNYA L 301.9 PD PERS DIS NOS 07/04/2010 MADL OUTREACH REPLIANA HaleNYA L 303.90 SA ALCOHOLISM UNSPECI 07/04/2010 MADL OUTREACH REPLIANADION L 305.20 SA CANNABIS ABUSE 07/04/2010 MADL OUTREACH REP, DION L 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 07/04/2010 MADL OUTREACH REP, DION L 296.32 MO DEPRESSIVE RECURRENT MODERATE 07/04/2010 BIRDIEL KATEY, DION L 300.02 AN GEN ANXIETY 07/04/2010 MADL OUTREACH REP, DION L 301.9 PD PERS DIS NOS 07/04/2010 MADL OUTREACH REP, DION L 303.90 SA ALCOHOLISM UNSPECI 07/04/2010 MADL OUTREACH REP, DION L 305.20 SA CANNABIS ABUSE 07/04/2010 MADL OUTREACH REP, DION L 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 07/04/2010 MADL OUTREACH REP, DION L 296.32 MO DEPRESSIVE RECURRENT MODERATE 07/04/2010 BIRDIEL OUTREACH REP, DION L 300.02 AN GEN ANXIETY 07/04/2010 MADL OUTREACH REP, DION L 301.9 PD PERS DIS NOS 07/04/2010 MADL OUTREACH REP, DION L 303.90 SA ALCOHOLISM UNSPECI 07/04/2010 MADL OUTREACH REP, DION L 305.20 SA CANNABIS ABUSE 07/04/2010 MADL OUTREACH REP, DION L 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 07/04/2010 LOCKETT DO, SHANNA K 296.32 MO DEPRESSIVE RECURRENT MODERATE 07/04/2010 LOCKETT DO, SHANAN K 300.02 AN GEN ANXIETY 07/04/2010 LOCKETT DO, SHANNA K 301.9 PD PERS DIS NOS 07/04/2010 LOCKETT DO, SHANNA K 303.90 SA ALCOHOLISM UNSPECI 07/04/2010 LOCKETT DO, SHANNA K 305.20 SA CANNABIS ABUSE 07/04/2010 LOCKETT DO, SHANNA K 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 07/04/2010 MADL OUTREACH REP, DION L 296.32 MO DEPRESSIVE RECURRENT MODERATE 07/04/2010 MADL OUTREACH REP, DION L 300.02 AN GEN ANXIETY 07/04/2010 MADL OUTREACH REP, DION L 301.9 PD PERS DIS NOS 07/04/2010 MADL OUTREACH REP, DION L 303.90 SA ALCOHOLISM UNSPECI 07/04/2010 MADL OUTREACH REP, DION L 305.20 SA CANNABIS ABUSE 07/04/2010 MADL OUTREACH REP, DION L 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 07/04/2010 MADL OUTREACH REP, DION L 296.32 MO DEPRESSIVE RECURRENT MODERATE 07/04/2010 MADL OUTREACH REP, DION L 300.02 AN GEN ANXIETY 07/04/2010 MADL OUTREACH REP, DION L 301.9 PD PERS DIS NOS 07/04/2010 MADL OUTREACH REP, DION L 303.90 SA ALCOHOLISM UNSPECI 07/04/2010 MADL OUTREACH REP, DION L 305.20 SA CANNABIS ABUSE 07/04/2010 MADL OUTREACH REP, DION L 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 07/04/2010 MADL OUTREACH REP, DION L 296.32 MO DEPRESSIVE RECURRENT MODERATE 07/04/2010 MADL OUTREACH REP, DION L 300.02 AN GEN ANXIETY 07/04/2010 MADL OUTREACH REP, DION L 301.9 PD PERS DIS NOS 07/04/2010 MADL OUTREACH REP, DION L 303.90 SA ALCOHOLISM UNSPECI 07/04/2010 MADL OUTREACH REP, DION L 305.20 SA CANNABIS ABUSE 07/04/2010 MADL OUTREACH REP, DION L 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 07/04/2010 MADL OUTREACH REP, DION L 296.32 MO DEPRESSIVE RECURRENT MODERATE 07/04/2010 MADL OUTREACH REP, DION L 300.02 AN GEN ANXIETY 07/04/2010 MADL OUTREACH REP, DION L 301.9 PD PERS DIS NOS 07/04/2010 MADL OUTREACH REP, DION L 303.90 SA ALCOHOLISM UNSPECI 07/04/2010 MADL OUTREACH REP, DION L 305.20 SA CANNABIS ABUSE 07/04/2010 MADL OUTREACH REP, DION L 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 07/04/2010 MADL OUTREACH REP, DION L 296.32 MO DEPRESSIVE RECURRENT MODERATE 07/04/2010 MADL OUTREACH REP, DION L 300.02 AN GEN ANXIETY 07/04/2010 MADL OUTREACH REP, DION L 301.9 PD PERS DIS NOS 07/04/2010 MADL OUTREACH REP, DION L 303.90 SA ALCOHOLISM UNSPECI 07/04/2010 MADL OUTREACH REP, DION L 305.20 SA CANNABIS ABUSE 07/04/2010 MADL OUTREACH REP, DION L 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 07/04/2010 MADL OUTREACH REP, DION L 296.32 MO DEPRESSIVE RECURRENT MODERATE 07/04/2010 MADL OUTREACH REP, DION L 300.02 AN GEN ANXIETY 07/04/2010 MADL OUTREACH REP, DION L 301.9 PD PERS DIS NOS 07/04/2010 MADL OUTREACH REP, DION L 303.90 SA ALCOHOLISM UNSPECI 07/04/2010 MADL OUTREACH REP, DION L 305.20 SA CANNABIS ABUSE 07/04/2010 MADL OUTREACH REP, DION L 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 07/04/2010 MADL OUTREACH REP, DION L 296.32 MO DEPRESSIVE RECURRENT MODERATE 07/04/2010 MADL OUTREACH REP, DION L 300.02 AN GEN ANXIETY 07/04/2010 MADL OUTREACH REP, DION L 301.9 PD PERS DIS NOS 07/04/2010 MADL OUTREACH REP, DION L 303.90 SA ALCOHOLISM UNSPECI 07/04/2010 MADL OUTREACH REP, DION L 305.20 SA CANNABIS ABUSE 07/04/2010 MADL OUTREACH REP, DION L 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 07/04/2010 MADL OUTREACH REP, DION L 296.32 MO DEPRESSIVE RECURRENT MODERATE 07/04/2010 MADL OUTREACH REP, DION L 300.02 AN GEN ANXIETY 07/04/2010 MADL OUTREACH REP, DION L 301.9 PD PERS DIS NOS 07/04/2010 MADL OUTREACH REP, DION L 303.90 SA ALCOHOLISM UNSPECI 07/04/2010 MADL OUTREACH REP, DION L 305.20 SA CANNABIS ABUSE 07/04/2010 MADL OUTREACH REP, DION L 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 07/04/2010 MADL OUTREACH REP, DION L 296.32 MO DEPRESSIVE RECURRENT MODERATE 07/04/2010 MADL OUTREACH REP, DION L 300.02 AN GEN ANXIETY 07/04/2010 MADL OUTREACH REP, DION L 301.9 PD PERS DIS NOS 07/04/2010 MADL OUTREACH REP, DION L 303.90 SA ALCOHOLISM UNSPECI 07/04/2010 MADL OUTREACH REP, DION L 305.20 SA CANNABIS ABUSE 07/04/2010 MADL OUTREACH REP, DION L 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 07/04/2010 LOCKETT DO, SHANNA K 296.32 MO DEPRESSIVE RECURRENT MODERATE 07/04/2010 LOCKETT DO, SHANNA K 300.02 AN GEN ANXIETY 07/04/2010 LOCKETT DO, SHANNA K 301.9 PD PERS DIS NOS 07/04/2010 LOCKETT DO, SHANNA K 303.90 SA ALCOHOLISM UNSPECI 07/04/2010 LOCKETT DO, HSANNA K 305.20 SA CANNABIS ABUSE 07/04/2010 LOCKETT DO, SHANNA K 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 07/04/2010 CASTELLANO OUTREACH REP, BARRY R 296.32 MO DEPRESSIVE RECURRENT MODERATE 07/04/2010 CASTELLANO OUTREACH REP, BARRY R 300.02 AN GEN ANXIETY 07/04/2010 CASTELLANO OUTREACH REP, BARRY R 301.9 PD PERS DIS NOS 07/04/2010 CASTELLANO OUTREACH REP, BARRY R 303.90 SA ALCOHOLISM UNSPECI 07/04/2010 CASTELLANO OUTREACH REP, BARRY R 305.20 SA CANNABIS ABUSE 07/04/2010 CASTELLANO OUTREACH REP, BARRY R 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 07/04/2010 [...] TORO, ANNEL FRANCES 787.91 Diarrhea 07/09/2010 АННА OUTREACH REP, ANNEL FRANCES 789.00 Abdominal Pain Unspecified Site [...] 789.00 Abdominal Pain Unspecified Site 07/09/2010 SHELBI OUTREACH REP, CARLINE S 787.91 Diarrhea 07/09/2010 SHELBI OUTREACH REP, CARLINE S 789.00 Abdominal Pain Unspecified Site 07/09/2010 SHELBI OUTREACH REP, CARLINE S 787.91 Diarrhea 07/09/2010 SHELBI OUTREACH REP, CARLINE S 789.00 Abdominal Pain Unspecified Site [...] Abdominal Pain Unspecified Site 07/09/2010 MARIEE CASHERO OUTREACH REP, MARTÍNEZ N 787.91 Diarrhea 07/09/2010 MARIEE CASHERO OUTREACH REP, MARTÍNEZ N 789.00 Abdominal Pain Unspecified Site 07/09/2010 BINDU PALM MD 787.91 Diarrhea 07/09/2010 BINDU PALM MD 789.00 Abdominal Pain Unspecified Site 07/09/2010 MARIEE CASHERO OUTREACH REP, MARTÍNEZ N 787.91 Diarrhea 07/09/2010 MARIEE CASHERO OUTREACH REP, MARTÍNEZ N 789.00 Abdominal Pain Unspecified Site 07/09/2010 ANNEL JJ APRN 787.91 Diarrhea 07/09/2010 ANNEL JJ APRN 789.00 Abdominal Pain Unspecified Site 07/09/2010 LAURA BENNETT MD 787.91 Diarrhea 07/09/2010 LAURA BENNETT MD 789.00 Abdominal Pain Unspecified Site 07/09/2010 MADL OUTREACH REP, DION L 787.91 Diarrhea 07/09/2010 MADL OUTREACH REP, DION L 789.00 Abdominal Pain Unspecified Site 07/09/2010 LAURA BENNETT MD 787.91 Diarrhea 07/09/2010 LAURA BENNETT MD 789.00 Abdominal Pain Unspecified Site 07/09/2010 MADL OUTREACH REP, DION L 787.91 Diarrhea 07/09/2010 MADL OUTREACH REP, DION L 789.00 Abdominal Pain Unspecified Site 07/09/2010 LOCKETT DO, SHANNA K 787.91 Diarrhea 07/09/2010 LOCKETT DO, SHANNA K 789.00 Abdominal Pain Unspecified Site 07/09/2010 LOCKTET DO, SHANNA K 787.91 Diarrhea 07/09/2010 LOCKETT DO, SHANNA K 789.00 Abdominal Pain Unspecified Site 07/09/2010 MADL OUTREACH REP, DION L 787.91 Diarrhea 07/09/2010 MADL OUTREACH REP, DION L 789.00 Abdominal Pain Unspecified Site 07/09/2010 MADL OUTREACH REP, DION L 787.91 Diarrhea 07/09/2010 MADL OUTREACH REP, DION L 789.00 Abdominal Pain Unspecified Site 07/09/2010 MADL OUTREACH REP, DION L 787.91 Diarrhea 07/09/2010 MADL OUTREACH REP, DION L 789.00 Abdominal Pain Unspecified Site 07/09/2010 LOCKETT DO, SHANNA K 787.91 Diarrhea 07/09/2010 LOCKETT DO, SHANNA K 789.00 Abdominal Pain Unspecified Site 07/09/2010 MADL OUTREACH REP, DION L 787.91 Diarrhea 07/09/2010 MADL OUTREACH REP, DION L 789.00 Abdominal Pain Unspecified Site 07/09/2010 MADL OUTREACH REP, DION L 787.91 Diarrhea 07/09/2010 MADL OUTREACH REP, DION L 789.00 Abdominal Pain Unspecified Site 07/09/2010 MADL OUTREACH REP, DION L 787.91 Diarrhea 07/09/2010 MADL OUTREACH REP, DION L 789.00 Abdominal Pain Unspecified Site 07/09/2010 MADL OUTREACH REP, DION L 787.91 Diarrhea 07/09/2010 MADL OUTREACH REP, DION L 789.00 Abdominal Pain Unspecified Site 07/09/2010 MADL OUTREACH REP, DION L 787.91 Diarrhea 07/09/2010 MADL OUTREACH REP, DION L 789.00 Abdominal Pain Unspecified Site 07/09/2010 MADL OUTREACH REP, DION L 787.91 Diarrhea 07/09/2010 MADL OUTREACH REP, DION L 789.00 Abdominal Pain Unspecified Site 07/09/2010 MADL OUTREACH REP, DION L 787.91 Diarrhea 07/09/2010 MADL OUTREACH REP, DION L 789.00 Abdominal Pain Unspecified Site 07/09/2010 MADL OUTREACH REP, DION L 787.91 Diarrhea 07/09/2010 MADL OUTREACH REP, DION L 789.00 Abdominal Pain Unspecified Site 07/09/2010 MADL OUTREACH REP, DION L 787.91 Diarrhea 07/09/2010 MADL OUTREACH REP, DION L 789.00 Abdominal Pain Unspecified Site 07/09/2010 LOCKETT DO, SHANNA K 787.91 Diarrhea 07/09/2010 LOCKETT DO, SHANNA K 789.00 Abdominal Pain Unspecified Site 07/09/2010 CASTELLANO OUTREACH REP, BARRY R 787.91 Diarrhea 07/09/2010 CASTELLANO OUTREACH REP, BARRY R 789.00 Abdominal Pain Unspecified Site 07/09/2010 LOCKETT DO, SHANNA K 787.91 Diarrhea 07/09/2010 LOCKETT DO, SHANNA K 789.00 Abdominal Pain Unspecified Site 08/29/2010 Ot 486 08/29/2010 Ot 496 08/29/2010 Ot 786.05 09/02/2010 486 Pneumonia 09/02/2010 493.90 ASTHMA 09/02/2010 DON POOL MD 486 Pneumonia 09/02/2010 DON POOL MD 493.90 ASTHMA 09/02/2010 JJ KATEY, ANNEL FRANCES 486 Pneumonia 09/02/2010 АННА OUTREACH REP, ANNEL FRANCES 493.90 ASTHMA 09/02/2010 LOCKETT DO, [...] MOREIRA, BINDU Hidalgo 493.90 ASTHMA 09/02/2010 SHELBI OUTREACH REP, CARLINE S 486 Pneumonia 09/02/2010 SHELBI OUTREACH REP, CARLINE S 493.90 ASTHMA 09/02/2010 SHELBI OUTREACH REP, CARLINE S 486 Pneumonia 09/02/2010 SHELBI OUTREACH REP, CARLINE S 493.90 ASTHMA 09/02/2010 SABRINA MOREIRA, LAURA 486 Pneumonia 09/02/2010 SABRINA MOREIRA, LAURA 493.90 ASTHMA 09/02/2010 LOBITO MOREIRA, ELIZABETH N 486 Pneumonia 09/02/2010 LOBITO MOREIRA, ELIZABETH N 493.90 ASTHMA 09/02/2010 SABRINA MOREIRA, LAURA 486 Pneumonia 09/02/2010 SABRINA MOREIRA, LAURA 493.90 ASTHMA 09/02/2010 LOCKETT DO, SHANNA K 486 Pneumonia 09/02/2010 LOCKETT DO, SHANNA K 493.90 ASTHMA 09/02/2010 MARIEE CASHERO OUTREACH REP, MARTÍNEZ N 486 Pneumonia 09/02/2010 MARIEE CASHERO OUTREACH REP, MARTÍNEZ N 493.90 ASTHMA 09/02/2010 NÉSTOR MOREIRA, BINDU M 486 Pneumonia 09/02/2010 NÉSTOR MOREIRA, BINDU M 493.90 ASTHMA 09/02/2010 MARIEE CASHERO OUTREACH REP, MARTÍNEZ N 486 Pneumonia 09/02/2010 MARIEE CASHERO OUTREACH REP, MARTÍNEZ N 493.90 ASTHMA 09/02/2010 АННА OUTREACH REP, ANNEL FRANCES 486 Pneumonia 09/02/2010 АННА OUTREACH REP, ANNEL FRANCES 493.90 ASTHMA 09/02/2010 SABRINA MOREIRA, LAURA 486 Pneumonia 09/02/2010 SABRINA MOREIRA, LAURA 493.90 ASTHMA 09/02/2010 MADL OUTREACH REP, DION L 486 Pneumonia 09/02/2010 MADL OUTREACH REP, DION L 493.90 ASTHMA 09/02/2010 SABRINA MOREIRA, LAURA 486 Pneumonia 09/02/2010 SABRINA MOREIRA, LAURA 493.90 ASTHMA 09/02/2010 MADL OUTREACH REP, DION L 486 Pneumonia 09/02/2010 MADL OUTREACH REP, DION L 493.90 ASTHMA 09/02/2010 LOCKETT DO, SHANNA K 486 Pneumonia 09/02/2010 LOCKETT DO, SHANNA K 493.90 ASTHMA 09/02/2010 LOCKETT DO, SHANNA K 486 Pneumonia 09/02/2010 LOCKETT DO, SHANNA K 493.90 ASTHMA 09/02/2010 MADL OUTREACH REP, DION L 486 Pneumonia 09/02/2010 MADL OUTREACH REP, DION L 493.90 ASTHMA 09/02/2010 MADL OUTREACH REP, DION L 486 Pneumonia 09/02/2010 MADL OUTREACH REP, DION L 493.90 ASTHMA 09/02/2010 MADL OUTREACH REP, DION L 486 Pneumonia 09/02/2010 MADL OUTREACH REP, DION L 493.90 ASTHMA 09/02/2010 LOCKETT DO, SHANNA K 486 Pneumonia 09/02/2010 LOCKETT DO, SHANNA K 493.90 ASTHMA 09/02/2010 MADL OUTREACH REP, DION L 486 Pneumonia 09/02/2010 MADL OUTREACH REP, DION L 493.90 ASTHMA 09/02/2010 MADL OUTREACH REP, DION L 486 Pneumonia 09/02/2010 MADL OUTREACH REP, DION L 493.90 ASTHMA 09/02/2010 MADL OUTREACH REP, DION L 486 Pneumonia 09/02/2010 MADL OUTREACH REP, DION L 493.90 ASTHMA 09/02/2010 MADL OUTREACH REP, DION L 486 Pneumonia 09/02/2010 MADL OUTREACH REP, DION L 493.90 ASTHMA 09/02/2010 MADL OUTREACH REP, DION L 486 Pneumonia 09/02/2010 MADL OUTREACH REP, DION L 493.90 ASTHMA 09/02/2010 MADL OUTREACH REP, DION L 486 Pneumonia 09/02/2010 MADL OUTREACH REP, DION L 493.90 ASTHMA 09/02/2010 MADL OUTREACH REP, DION L 486 Pneumonia 09/02/2010 MADL OUTREACH REP, DION L 493.90 ASTHMA 09/02/2010 MADL OUTREACH REP, DION L 486 Pneumonia 09/02/2010 MADL OUTREACH REP, DION L 493.90 ASTHMA 09/02/2010 MADL OUTREACH REP, DION L 486 Pneumonia 09/02/2010 MADL OUTREACH REP, DION L 493.90 ASTHMA 09/02/2010 LOCKETT DO, SHANNA K 486 Pneumonia 09/02/2010 LOCKETT DO, SHANNA K 493.90 ASTHMA 09/02/2010 CASTELLANO OUTREACH REP, BARRY R 486 Pneumonia 09/02/2010 CASTELLANO OUTREACH REP, BARRY R 493.90 ASTHMA 09/02/2010 LOCKETT DO, [...] 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 10/07/2010 SHELBI OUTREACH REP, CARLINE S 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 10/07/2010 SHELBI OUTREACH REP, CARLINE S 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 10/07/2010 LAURA BENNETT MD 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 10/07/2010 LOBITO MOREIRA, ELIZABETH N 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 10/07/2010 LAURA BENNETT MD 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 10/07/2010 LOCKETT DO, SHANNA K 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 10/07/2010 MARIEE CASHERO OUTREACH REP, MARTÍNEZ N 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 10/07/2010 BINDU PALM MD M 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 10/07/2010 MARIEE CASHERO OUTREACH REP, MARTÍNEZ N 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 10/07/2010 АННА DEL TORO ANNEL FRANCES 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 10/07/2010 LAURA BENNETT MD 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 10/07/2010 MADL OUTREACH REP, DION L 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 10/07/2010 LAURA BENNETT MD 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 10/07/2010 MADL OUTREACH REP, DION L 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 10/07/2010 LOCKETT DO, SHANNA K 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 10/07/2010 LOCKETT DO, SHANNA K 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 10/07/2010 MADL OUTREACH REP, DION L 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 10/07/2010 MADL OUTREACH REP, DION L 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 10/07/2010 MADL OUTREACH REP, DION L 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 10/07/2010 LOCKETT DO, SHANNA K 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 10/07/2010 MADL OUTREACH REP, DION L 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 10/07/2010 MADL OUTREACH REP, DION L 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 10/07/2010 MADL OUTREACH REP, DION L 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 10/07/2010 MADL OUTREACH REP, DION L 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 10/07/2010 MADL OUTREACH REP, DION L 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 10/07/2010 MADL OUTREACH REP, DION L 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 10/07/2010 MADL OUTREACH REP, DION L 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 10/07/2010 MADL OUTREACH REP, DION L 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 12/30/2010 MARIEE CASHERO OUTREACH REP, MARTÍNEZ N 491.21 Bronchitis Aecb 12/30/2010 MARIEE CASHERO OUTREACH REP, MARTÍNEZ N 792.1 Nonspecific Abnormal Findings In [...] TORONYA L 491.21 Bronchitis Aecb 12/30/2010 BIRDIEL OUTREACH REP, DION L 792.1 Nonspecific Abnormal Findings In Stool Contents 12/30/2010 LAURA BENNETT MD 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 12/30/2010 LAURA BENNETT MD 491.21 Bronchitis Aecb 12/30/2010 LAURA BENNETT MD 792.1 Nonspecific Abnormal Findings In Stool Contents 12/30/2010 BIRDIEL LIANA DEL TORONYA L 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 12/30/2010 MADL OUTREACH REP, DION L 491.21 Bronchitis Aecb 12/30/2010 MADL OUTREACH REP, DION L 792.1 Nonspecific Abnormal Findings In [...] Abnormal Findings In Stool Contents 12/30/2010 MADL OUTREACH REP, DION L 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 12/30/2010 MADL OUTREACH REP, DION L 491.21 Bronchitis Aecb 12/30/2010 MADL OUTREACH REP, DION L 792.1 Nonspecific Abnormal Findings In Stool Contents 12/30/2010 MADL OUTREACH REP, DION L 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 12/30/2010 MADL OUTREACH REP, DION L 491.21 Bronchitis Aecb 12/30/2010 MADL OUTREACH REP, DION L 792.1 Nonspecific Abnormal Findings In Stool Contents 12/30/2010 MADL OUTREACH REP, DION L 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 12/30/2010 MADL OUTREACH REP, DION L 491.21 Bronchitis Aecb 12/30/2010 MADL OUTREACH REP, DION L 792.1 Nonspecific Abnormal Findings In Stool Contents 12/30/2010 LOCKETT DO, SHANNA K 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 12/30/2010 LOCKETT DO, SHANNA K 491.21 Bronchitis Aecb 12/30/2010 LOCKETT DO, SHANNA K 792.1 Nonspecific Abnormal Findings In Stool Contents 12/30/2010 MADL OUTREACH REP, DION L 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 12/30/2010 MADL OUTREACH REP, DION L 491.21 Bronchitis Aecb 12/30/2010 MADL OUTREACH REP, DION L 792.1 Nonspecific Abnormal Findings In Stool Contents 12/30/2010 MADL OUTREACH REP, DION L 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 12/30/2010 MADL OUTREACH REP, DION L 491.21 Bronchitis Aecb 12/30/2010 MADL OUTREACH REP, DION L 792.1 Nonspecific Abnormal Findings In Stool Contents 12/30/2010 MADL OUTREACH REP, DION L 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 12/30/2010 MADL OUTREACH REP, DION L 491.21 Bronchitis Aecb 12/30/2010 MADL OUTREACH REP, DION L 792.1 Nonspecific Abnormal Findings In Stool Contents 12/30/2010 MADL OUTREACH REP, DION L 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 12/30/2010 MADL OUTREACH REP, DION L 491.21 Bronchitis Aecb 12/30/2010 MADL OUTREACH REP, DION L 792.1 Nonspecific Abnormal Findings In Stool Contents 12/30/2010 MADL OUTREACH REP, DION L 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 12/30/2010 MADL OUTREACH REP, DION L 491.21 Bronchitis Aecb 12/30/2010 MADL OUTREACH REP, DION L 792.1 Nonspecific Abnormal Findings In Stool Contents 12/30/2010 MADL OUTREACH REP, DION L 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 12/30/2010 MADL OUTREACH REP, DION L 491.21 Bronchitis Aecb 12/30/2010 MADL OUTREACH REP, DION L 792.1 Nonspecific Abnormal Findings In Stool Contents 12/30/2010 MADL OUTREACH REP, DION L 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 12/30/2010 MADL OUTREACH REP, DION L 491.21 Bronchitis Aecb 12/30/2010 MADL OUTREACH REP, DION L 792.1 Nonspecific Abnormal Findings In Stool Contents 12/30/2010 MADL OUTREACH REP, DION L 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 12/30/2010 MADL OUTREACH REP, DION L 491.21 Bronchitis Aecb 12/30/2010 MADL OUTREACH REP, DION L 792.1 Nonspecific Abnormal Findings In [...] Abnormal Findings In Stool Contents 12/30/2010 CASTELLANO OUTREACH REP, BARRY R 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 12/30/2010 CASTELLANO OUTREACH REP, BARRY R 491.21 Bronchitis Aecb 12/30/2010 CASTELLANO OUTREACH REP, BARRY R 792.1 Nonspecific Abnormal Findings In [...] K 304.80 SA POLYSUB DEP 05/01/2011 MADL OUTREACH REP, DION L 304.80 SA POLYSUB DEP 05/01/2011 MADL OUTREACH REP, DION L 304.80 SA POLYSUB DEP 05/01/2011 MADL OUTREACH REP, DION L 304.80 SA POLYSUB DEP 05/01/2011 LOCKETT DO SHANNA K 304.80 SA POLYSUB DEP 05/01/2011 MADL OUTREACH REP, DION L 304.80 SA POLYSUB DEP 05/01/2011 MADL OUTREACH REP, DION L 304.80 SA POLYSUB DEP 05/01/2011 MADL OUTREACH REP, DION L 304.80 SA POLYSUB DEP 05/01/2011 MADL OUTREACH REP, DION L 304.80 SA POLYSUB DEP 05/01/2011 MADL OUTREACH REP, DION L 304.80 SA POLYSUB DEP 05/01/2011 MADL OUTREACH REP, DION L 304.80 SA POLYSUB DEP 05/01/2011 MADL OUTREACH REP, DION L 304.80 SA POLYSUB DEP 05/01/2011 MADL OUTREACH REP, DION L 304.80 SA POLYSUB DEP 05/01/2011 MADL OUTREACH REP, DION L 304.80 SA POLYSUB DEP 05/01/2011 LOCKETT DOSHANNA K 304.80 SA POLYSUB DEP 05/01/2011 CASTELLANO OUTREACH REP, BARRY R 304.80 SA POLYSUB DEP 05/01/2011 [...] V73.89 Other Specified Viral Diseases 05/26/2011 SHELBI OUTREACH REP, CARLINE S V73.89 Other Specified Viral Diseases 05/26/2011 SHELBI OUTREACH REP, CARLINE S V73.89 Other Specified Viral Diseases [...] N V73.89 Other Specified Viral Diseases 05/26/2011 АНАН DEL TORO ANNEL GOLDSTEINH V73.89 Other Specified Viral Diseases 05/26/2011 LAURA BENNETT MD V73.89 Other Specified Viral Diseases 05/26/2011 MADL OUTREACH REPDION L V73.89 Other Specified Viral Diseases 05/26/2011 LAURA BENNETT MD V73.89 Other Specified Viral Diseases 05/26/2011 MADL OUTREACH REPDION L V73.89 Other Specified Viral Diseases 05/26/2011 LOCKETT SHANNA CARRANZA K V73.89 Other Specified Viral Diseases 05/26/2011 LOCKETT SHANNA CARRANZA K V73.89 Other Specified Viral Diseases 05/26/2011 MADL OUTREACH REP DION L V73.89 Other Specified Viral Diseases 05/26/2011 MADL OUTREACH REP, DION L V73.89 Other Specified Viral Diseases 05/26/2011 MADL OUTREACH REP, DION L V73.89 Other Specified Viral Diseases 05/26/2011 LEVY CARRANZASHANNA K V73.89 Other Specified Viral Diseases 05/26/2011 MADL OUTREACH REP, DION L V73.89 Other Specified Viral Diseases 05/26/2011 MADL OUTREACH REP, DION L V73.89 Other Specified Viral Diseases 05/26/2011 MADL OUTREACH REP, DION L V73.89 Other Specified Viral Diseases 05/26/2011 MADL OUTREACH REP, DION L V73.89 Other Specified Viral Diseases 05/26/2011 MADL OUTREACH REP, DION L V73.89 Other Specified Viral Diseases 05/26/2011 MADL OUTREACH REP, DION L V73.89 Other Specified Viral Diseases 05/26/2011 MADL OUTREACH REP, DION L V73.89 Other Specified Viral Diseases 05/26/2011 MADL OUTREACH REP, DION L V73.89 Other Specified Viral Diseases 05/26/2011 MADL OUTREACH REP, DION L V73.89 Other Specified Viral Diseases 05/26/2011 LOCKETT SHANNA CARRANZA K V73.89 Other Specified Viral Diseases 05/26/2011 CASTELLANO OUTREACH REPRENOIA R V73.89 Other Specified Viral Diseases 05/26/2011 LOCKETT SHANNA CARRANZA K V73.89 Other Specified Viral Diseases 05/27/2011 272.1 HYPERTRIGLYCERIDEMIA 05/27/2011 288.60 Leukocytosis 05/27/2011 V58.69 MEDICATION HIGH RISK 05/27/2011 DON POOL MD 272.1 HYPERTRIGLYCERIDEMIA 05/27/2011 DON POOL MD 288.60 Leukocytosis 05/27/2011 DON POOL MD V58.69 MEDICATION HIGH RISK 05/27/2011 JJ OUTREACH REP, ANNEL FRANCES 272.1 HYPERTRIGLYCERIDEMIA 05/27/2011 JJ OUTREACH REP ANNEL FRANCES 288.60 Leukocytosis 05/27/2011 JJ OUTREACH REP, ANNEL FRANCES V58.69 MEDICATION HIGH RISK 05/27/2011 [...] MD V58.69 MEDICATION HIGH RISK 05/27/2011 SHELBI OUTREACH REP, CARLINE S 272.1 HYPERTRIGLYCERIDEMIA 05/27/2011 SHELBI OUTREACH REP, CARLINE S 288.60 Leukocytosis 05/27/2011 SHELBI OUTREACH REP, CARLINE S V58.69 MEDICATION HIGH RISK 05/27/2011 SHELBI OUTREACH REP, CARLINE S 272.1 HYPERTRIGLYCERIDEMIA 05/27/2011 SHELBI OUTREACH REP, CARLINE S 288.60 Leukocytosis 05/27/2011 SHELBI OUTREACH REP, CARLINE S V58.69 MEDICATION HIGH RISK 05/27/2011 [...] V58.69 MEDICATION HIGH RISK 05/27/2011 MARIEE CASHERO OUTREACH REP, MARTÍNEZ N 272.1 HYPERTRIGLYCERIDEMIA 05/27/2011 MARIEE CASHERO OUTREACH REP, MARTÍNEZ N 288.60 Leukocytosis 05/27/2011 MARIEE CASHERO OUTREACH REP, MARTÍNEZ N V58.69 MEDICATION HIGH RISK 05/27/2011 BINDU PALM MD 272.1 HYPERTRIGLYCERIDEMIA 05/27/2011 BINDU PALM MD 288.60 Leukocytosis 05/27/2011 BINDU PALM MD V58.69 MEDICATION HIGH RISK 05/27/2011 MARIEE CASHERO OUTREACH REP, MARTÍNEZ N 272.1 HYPERTRIGLYCERIDEMIA 05/27/2011 MARIEE CASHERO OUTREACH REP, MARTÍNEZ N 288.60 Leukocytosis 05/27/2011 MARIEE CASHERO OUTREACH REP, MARTÍNEZ N V58.69 MEDICATION HIGH RISK 05/27/2011 JJ OUTREACH REP, ANNEL FRANCES 272.1 HYPERTRIGLYCERIDEMIA 05/27/2011 JJ OUTREACH REP, ANNEL FRANCES 288.60 Leukocytosis 05/27/2011 JJ OUTREACH REP ANNEL FRANCES V58.69 MEDICATION HIGH RISK 05/27/2011 LAURA BENNETT MD 272.1 HYPERTRIGLYCERIDEMIA 05/27/2011 LAURA BENNETT MD 288.60 Leukocytosis 05/27/2011 LAURA BENNETT MD V58.69 MEDICATION HIGH RISK 05/27/2011 MADL OUTREACH REP, DION L 272.1 HYPERTRIGLYCERIDEMIA 05/27/2011 MADL OUTREACH REP, DION L 288.60 Leukocytosis 05/27/2011 MADL OUTREACH REP, DION L V58.69 MEDICATION HIGH RISK 05/27/2011 LAUAR BENNETT MD 272.1 HYPERTRIGLYCERIDEMIA 05/27/2011 LAURA BENNETT MD 288.60 Leukocytosis 05/27/2011 LAURA BENNETT MD V58.69 MEDICATION HIGH RISK 05/27/2011 MADL OUTREACH REP, DION L 272.1 HYPERTRIGLYCERIDEMIA 05/27/2011 MADL OUTREACH REP, DION L 288.60 Leukocytosis 05/27/2011 MADL OUTREACH REP, DION L V58.69 MEDICATION HIGH RISK 05/27/2011 LOCKETT DO, SHANNA K 272.1 HYPERTRIGLYCERIDEMIA 05/27/2011 LOCKETT DO, SHANNA K 288.60 Leukocytosis 05/27/2011 LOCKETT DO, SHANNA K V58.69 MEDICATION HIGH RISK 05/27/2011 LOCKETT DO, SHANNA K 272.1 HYPERTRIGLYCERIDEMIA 05/27/2011 LOCKETT DO, SHANNA K 288.60 Leukocytosis 05/27/2011 LOCKETT DO, SHANNA K V58.69 MEDICATION HIGH RISK 05/27/2011 MADL OUTREACH REP, DION L 272.1 HYPERTRIGLYCERIDEMIA 05/27/2011 MADL OUTREACH REP, DION L 288.60 Leukocytosis 05/27/2011 MADL OUTREACH REP, DION L V58.69 MEDICATION HIGH RISK 05/27/2011 MADL OUTREACH REP, DION L 272.1 HYPERTRIGLYCERIDEMIA 05/27/2011 MADL OUTREACH REP, DION L 288.60 Leukocytosis 05/27/2011 MADL OUTREACH REP, DION L V58.69 MEDICATION HIGH RISK 05/27/2011 MADL OUTREACH REP, DION L 272.1 HYPERTRIGLYCERIDEMIA 05/27/2011 MADL OUTREACH REP, DION L 288.60 Leukocytosis 05/27/2011 MADL OUTREACH REP, DION L V58.69 MEDICATION HIGH RISK 05/27/2011 LOCKETT DO, SHANNA K 272.1 HYPERTRIGLYCERIDEMIA 05/27/2011 LOCKETT DO, SHANNA K 288.60 Leukocytosis 05/27/2011 LOCKETT DO, SHANNA K V58.69 MEDICATION HIGH RISK 05/27/2011 MADL OUTREACH REP, DION L 272.1 HYPERTRIGLYCERIDEMIA 05/27/2011 MADL OUTREACH REP, DION L 288.60 Leukocytosis 05/27/2011 MADL OUTREACH REP, DINO L V58.69 MEDICATION HIGH RISK 05/27/2011 MADL OUTREACH REP, DION L 272.1 HYPERTRIGLYCERIDEMIA 05/27/2011 MADL OUTREACH REP, DION L 288.60 Leukocytosis 05/27/2011 MADL OUTREACH REP, DION L V58.69 MEDICATION HIGH RISK 05/27/2011 MADL OUTREACH REP, DION L 272.1 HYPERTRIGLYCERIDEMIA 05/27/2011 MADL OUTREACH REP, DION L 288.60 Leukocytosis 05/27/2011 MADL OUTREACH REP, DION L V58.69 MEDICATION HIGH RISK 05/27/2011 MADL OUTREACH REP, DION L 272.1 HYPERTRIGLYCERIDEMIA 05/27/2011 MADL OUTREACH REP, DION L 288.60 Leukocytosis 05/27/2011 MADL OUTREACH REP, DION L V58.69 MEDICATION HIGH RISK 05/27/2011 MADL OUTREACH REP, DION L 272.1 HYPERTRIGLYCERIDEMIA 05/27/2011 MADL OUTREACH REP, DION L 288.60 Leukocytosis 05/27/2011 MADL OUTREACH REP, DION L V58.69 MEDICATION HIGH RISK 05/27/2011 MADL OUTREACH REP, DION L 272.1 HYPERTRIGLYCERIDEMIA 05/27/2011 MADL OUTREACH REP, DION L 288.60 Leukocytosis 05/27/2011 MADL OUTREACH REP, DION L V58.69 MEDICATION HIGH RISK 05/27/2011 MADL OUTREACH REP, DION L 272.1 HYPERTRIGLYCERIDEMIA 05/27/2011 MADL OUTREACH REP, DION L 288.60 [facility] V58.69 MEDICATION HIGH RISK 05/27/2011 MADL OUTREACH REP, DION L 272.1 HYPERTRIGLYCERIDEMIA 05/27/2011 MADL OUTREACH REP, DION L 288.60 Leukocytosis 05/27/2011 MADL OUTREACH REP, DION L V58.69 MEDICATION HIGH RISK 05/27/2011 MADL OUTREACH REP, DION L 272.1 HYPERTRIGLYCERIDEMIA 05/27/2011 [facility] OUTREACH REP, DION L 288.60 Leukocytosis 05/27/2011 MAD OUTREACH REP, DION L V58.69 MEDICATION HIGH RISK 05/27/2011 LOCKETT DO, SHANNA K 272.1 HYPERTRIGLYCERIDEMIA 05/27/2011 LOCKETT DO, SHANNA K 288.60 Leukocytosis 05/27/2011 LOCKETT DO, SHANNA K V58.69 MEDICATION HIGH RISK 05/27/2011 CASTELLANO OUTREACH REP, BARRY R 272.1 HYPERTRIGLYCERIDEMIA 05/27/2011 CASTELLANO OUTREACH REP, BARRY R 288.60 Leukocytosis 05/27/2011 CASTELLANO OUTREACH REP, BARRY R V58.69 MEDICATION HIGH RISK 05/27/2011 LOCKETT DO, SHANNA K 272.1 HYPERTRIGLYCERIDEMIA 05/27/2011 LOCKETT DO, SHANNA K 288.60 Leukocytosis 05/27/2011 LEVY CARRANZA, SHANNA Mcmanus V58.69 MEDICATION HIGH RISK 06/05/2011 486 Pneumonia Unspecified 06/05/2011 YRN MOREIRA, DON 486 Pneumonia Unspecified 06/05/2011 АННА OUTREACH REP, ANNEL FRANCES 486 Pneumonia Unspecified 06/05/2011 LEVY [...] SHANNA K 486 Pneumonia Unspecified 06/05/2011 NÉSTOR MORERIA, BINDU M 486 Pneumonia Unspecified 06/05/2011 SHELBI DEL TORO, CARLINE S 486 Pneumonia Unspecified 06/05/2011 SHELBI DEL TORO, CARLINE S 486 Pneumonia Unspecified 06/05/2011 SABRINA MOREIRA, LAURA 486 Pneumonia Unspecified 06/05/2011 LOBITO MOREIRA, ELIZABETH Hale 486 Pneumonia Unspecified 06/05/2011 SABRINA MOREIRA, LAURA 486 Pneumonia Unspecified 06/05/2011 LEVY CARRANZA, SHANNA K 486 Pneumonia Unspecified 06/05/2011 JALYENE PURDY OUTREACH REP, MARTÍNEZ N 486 Pneumonia Unspecified 06/05/2011 NÉSTOR MOREIRA, BINDU M 486 Pneumonia Unspecified 06/05/2011 JAYLENE PURDY APRN, MARTÍNEZ N 486 Pneumonia Unspecified 06/05/2011 АННА DEL TORO, ANNEL FRANCES 486 Pneumonia Unspecified 06/05/2011 SABRINA MOREIRA, LAURA 486 Pneumonia Unspecified 06/05/2011 BRITTANY DEL TORO, DION L 486 Pneumonia Unspecified 06/05/2011 SABRINA MOREIRA, LAURA 486 Pneumonia Unspecified 06/05/2011 MADL OUTREACH REP, DION L 486 Pneumonia Unspecified 06/05/2011 LOCKETT DO, SHANNA K 486 Pneumonia Unspecified 06/05/2011 LOCKETT DO, SHANNA K 486 Pneumonia Unspecified 06/05/2011 MADL OUTREACH REP, DION L 486 Pneumonia Unspecified 06/05/2011 MADL OUTREACH REP, DION L 486 Pneumonia Unspecified 06/05/2011 MADL OUTREACH REP, DION L 486 Pneumonia Unspecified 06/05/2011 LOCKETT DO, SHANNA K 486 Pneumonia Unspecified 06/05/2011 MADL OUTREACH REP, DION L 486 Pneumonia Unspecified 06/05/2011 MADL OUTREACH REP, DION L 486 Pneumonia Unspecified 06/05/2011 MADL OUTREACH REP, DION L 486 Pneumonia Unspecified 06/05/2011 MADL OUTREACH REP, DION L 486 Pneumonia Unspecified 06/05/2011 MADL OUTREACH REP, DION L 486 Pneumonia Unspecified 06/05/2011 MADL OUTREACH REP, DION L 486 Pneumonia Unspecified 06/05/2011 MADL OUTREACH REP, DION L 486 Pneumonia Unspecified 06/05/2011 MADL OUTREACH REP, DION L 486 Pneumonia Unspecified 06/05/2011 MADL OUTREACH REP, DION L 486 Pneumonia Unspecified 06/05/2011 LOCKETT DO, SHANNA K 486 Pneumonia Unspecified 06/05/2011 CASTELLANO OUTREACH REP, BARRY R 486 Pneumonia Unspecified 06/05/2011 LOCKETT DO, SHANNA K 486 Pneumonia Unspecified 06/10/2011 V72.31 Bank Messenger Exam, Routine 06/10/2011 V73.81 Hpv Screening 06/10/2011 V76.2 Cervical Cancer Screening (pap Smear) 06/10/2011 DON POOL MD V72.31 Bank Messenger Exam, Routine 06/10/2011 DON POOL MD V73.81 Hpv Screening 06/10/2011 DON POOL MD V76.2 Cervical Cancer Screening (pap Smear) 06/10/2011 ANNEL JJ APRN V72.31 Bank Messenger Exam, Routine 06/10/2011 ANNEL JJ APRN V73.81 Hpv Screening 06/10/2011 ANNEL JJ APRN V76.2 Cervical Cancer Screening (pap Smear) 06/10/2011 SHANNA LOCKETT DO V72.31 Bank Messenger Exam, Routine 06/10/2011 SHANNA LOCKETT DO V73.81 Hpv Screening 06/10/2011 SHANNA LOCKETT DO V76.2 Cervical Cancer Screening (pap Smear) 06/10/2011 LAURA BENNETT MD V72.31 Bank Messenger Exam, Routine 06/10/2011 LAURA BENNETT MD V73.81 Hpv Screening 06/10/2011 LAURA BENNETT MD V76.2 Cervical Cancer Screening (pap Smear) 06/10/2011 SHANNA LOCKETT DO V72.31 Bank Messenger Exam, Routine 06/10/2011 SHANNA LOCKETT DO V73.81 Hpv Screening 06/10/2011 SHANNA LOCKETT DO V76.2 Cervical Cancer Screening (pap Smear) 06/10/2011 V72.31 Bank Messenger Exam, Routine 06/10/2011 V73.81 Hpv Screening 06/10/2011 V76.2 Cervical Cancer Screening (pap Smear) 06/10/2011 V72.31 Bank Messenger Exam, Routine 06/10/2011 V73.81 Hpv Screening 06/10/2011 V76.2 Cervical Cancer Screening (pap Smear) 06/10/2011 BINDU PALM MD V72.31 Bank Messenger Exam, Routine 06/10/2011 BINDU PALM MD V73.81 Hpv Screening 06/10/2011 BINDU PALM MD V76.2 Cervical Cancer Screening (pap Smear) 06/10/2011 V72.31 Bank Messenger Exam, Routine 06/10/2011 V73.81 Hpv Screening 06/10/2011 V76.2 Cervical Cancer Screening (pap Smear) 06/10/2011 V72.31 Bank Messenger Exam, Routine 06/10/2011 V73.81 Hpv Screening 06/10/2011 V76.2 Cervical Cancer Screening (pap Smear) 06/10/2011 V72.31 Bank Messenger Exam, Routine 06/10/2011 V73.81 Hpv Screening 06/10/2011 V76.2 Cervical Cancer Screening (pap Smear) 06/10/2011 V72.31 Bank Messenger Exam, Routine 06/10/2011 V73.81 Hpv Screening 06/10/2011 V76.2 Cervical Cancer Screening (pap Smear) 06/10/2011 V72.31 Bank Messenger Exam, Routine 06/10/2011 V73.81 Hpv Screening 06/10/2011 V76.2 Cervical Cancer Screening (pap Smear) 06/10/2011 V72.31 Bank Messenger Exam, Routine 06/10/2011 V73.81 Hpv Screening 06/10/2011 V76.2 Cervical Cancer Screening (pap Smear) 06/10/2011 V72.31 Bank Messenger Exam, Routine 06/10/2011 V73.81 Hpv Screening 06/10/2011 V76.2 Cervical Cancer Screening (pap Smear) 06/10/2011 BINDU PALM MD V72.31 Bank Messenger Exam, Routine 06/10/2011 BINDU PALM MD V73.81 Hpv Screening 06/10/2011 BINDU PALM MD V76.2 Cervical Cancer Screening (pap Smear) 06/10/2011 BINDU PALM MD V72.31 Bank Messenger Exam, Routine 06/10/2011 BINDU PALM MD V73.81 Hpv Screening 06/10/2011 BINDU PALM MD V76.2 Cervical Cancer Screening (pap Smear) 06/10/2011 GRANT LOCKETT DOA K V72.31 Bank Messenger Exam, Routine 06/10/2011 GRANT LOCKETT DOA K V73.81 Hpv Screening 06/10/2011 GRANT LOCKETT DOA K V76.2 Cervical Cancer Screening (pap Smear) 06/10/2011 BINDU PALM MD V72.31 Bank Messenger Exam, Routine 06/10/2011 BINDU PALM MD V73.81 Hpv Screening 06/10/2011 BINDU PALM MD V76.2 Cervical Cancer Screening (pap Smear) 06/10/2011 LOWELL MARIO APRNNDA S V72.31 Bank Messenger Exam, Routine 06/10/2011 SHELBI OUTREACH REP, CARLINE S V73.81 Hpv Screening 06/10/2011 SHELBI OUTREACH REP, CARLINE S V76.2 Cervical Cancer Screening (pap Smear) 06/10/2011 SHLEBI OUTREACH REP, CARLINE S V72.31 Bank Messenger Exam, Routine 06/10/2011 SHELBI OUTREACH REP, CARLINE S V73.81 Hpv Screening 06/10/2011 SHELBI DEL TORO CARLINE S V76.2 Cervical Cancer Screening (pap Smear) 06/10/2011 LAURA BENNETT MD V72.31 Bank Messenger Exam, Routine 06/10/2011 LAURA BENNETT MD V73.81 Hpv Screening 06/10/2011 LAUAR BENNETT MD V76.2 Cervical Cancer Screening (pap Smear) 06/10/2011 ELIZABETH ROBIN MD V72.31 Bank Messenger Exam, Routine 06/10/2011 ELIZABETH ROBIN MD V73.81 Hpv Screening 06/10/2011 ELIZABETH ROBIN MD V76.2 Cervical Cancer Screening (pap Smear) 06/10/2011 LAURA BENNETT MD V72.31 Bank Messenger Exam, Routine 06/10/2011 LAURA BENNETT MD V73.81 Hpv Screening 06/10/2011 LAURA BENNETT MD V76.2 Cervical Cancer Screening (pap Smear) 06/10/2011 SHANNA LOCKETT DO V72.31 Bank Messenger Exam, Routine 06/10/2011 SHANNA LOCKETT DO V73.81 Hpv Screening 06/10/2011 SHANNA LOCKETT DO V76.2 Cervical Cancer Screening (pap Smear) 06/10/2011 MARTÍNEZ MARY APRN N V72.31 Bank Messenger Exam, Routine 06/10/2011 MARTÍNEZ MARY APRN N V73.81 Hpv Screening 06/10/2011 MARTÍNEZ MARY APRN N V76.2 Cervical Cancer Screening (pap Smear) 06/10/2011 BINDU PALM MD V72.31 Bank Messenger Exam, Routine 06/10/2011 BINDU PALM MD V73.81 Hpv Screening 06/10/2011 BINDU PALM MD V76.2 Cervical Cancer Screening (pap Smear) 06/10/2011 MARTÍNEZ MARY APRN N V72.31 Bank Messenger Exam, Routine 06/10/2011 MARTÍNEZ MARY APRN N V73.81 Hpv Screening 06/10/2011 MARTÍNEZ MARY APRN N V76.2 Cervical Cancer Screening (pap Smear) 06/10/2011 ANNEL JJ APRN V72.31 Bank Messenger Exam, Routine 06/10/2011 ANNEL JJ APRN V73.81 Hpv Screening 06/10/2011 ANNEL JJ APRN V76.2 Cervical Cancer Screening (pap Smear) 06/10/2011 LAURA BENNETT MD V72.31 Bank Messenger Exam, Routine 06/10/2011 LAURA BENNETT MD V73.81 Hpv Screening 06/10/2011 LAURA BENNETT MD V76.2 Cervical Cancer Screening (pap Smear) 06/10/2011 MADL OUTREACH REP, DION L V72.31 Bank Messenger Exam, Routine 06/10/2011 MADL OUTREACH REP, DION L V73.81 Hpv Screening 06/10/2011 MADL OUTREACH REP, DION L V76.2 Cervical Cancer Screening (pap Smear) 06/10/2011 LAURA BENNETT MD V72.31 Bank Messenger Exam, Routine 06/10/2011 LAURA BENNETT MD V73.81 Hpv Screening 06/10/2011 LAURA BENNETT MD V76.2 Cervical Cancer Screening (pap Smear) 06/10/2011 MADL OUTREACH REP, DION L V72.31 Bank Messenger Exam, Routine 06/10/2011 MADL OUTREACH REP, DION L V73.81 Hpv Screening 06/10/2011 MADL OUTREACH REP, DION L V76.2 Cervical Cancer Screening (pap Smear) 06/10/2011 SHANNA LOCKETT DO V72.31 Bank Messenger Exam, Routine 06/10/2011 SHANNA LOCKETT DO V73.81 Hpv Screening 06/10/2011 SHANNA LOCKETT DO V76.2 Cervical Cancer Screening (pap Smear) 06/10/2011 SHANNA LOCKETT DO K V72.31 Bank Messenger Exam, Routine 06/10/2011 SHANNA LOCKETT DO V73.81 Hpv Screening 06/10/2011 SHANNA LOCKETT DO V76.2 Cervical Cancer Screening (pap Smear) 06/10/2011 MADL OUTREACH REP, DION L V72.31 Bank Messenger Exam, Routine 06/10/2011 MADL OUTREACH REP, DION L V73.81 Hpv Screening 06/10/2011 MADL OUTREACH REP, DION L V76.2 Cervical Cancer Screening (pap Smear) 06/10/2011 MADL OUTREACH REP, DION L V72.31 Bank Messenger Exam, Routine 06/10/2011 MADL OUTREACH REP, DION L V73.81 Hpv Screening 06/10/2011 MADL OUTREACH REP, DION L V76.2 Cervical Cancer Screening (pap Smear) 06/10/2011 MADL OUTREACH REP, DION L V72.31 Bank Messenger Exam, Routine 06/10/2011 MADL OUTREACH REP, DION L V73.81 Hpv Screening 06/10/2011 MADL OUTREACH REP, DION L V76.2 Cervical Cancer Screening (pap Smear) 06/10/2011 LOCKETT DO, SHANNA K V72.31 Bank Messenger Exam, Routine 06/10/2011 LOCKETT DO, SHANNA K V73.81 Hpv Screening 06/10/2011 LOCKETT DO, SHANNA K V76.2 Cervical Cancer Screening (pap Smear) 06/10/2011 MADL OUTREACH REP, DION L V72.31 Bank Messenger Exam, Routine 06/10/2011 MADL OUTREACH REP, DION L V73.81 Hpv Screening 06/10/2011 MADL OUTREACH REP, DION L V76.2 Cervical Cancer Screening (pap Smear) 06/10/2011 MADL OUTREACH REP, DION L V72.31 Bank Messenger Exam, Routine 06/10/2011 MADL OUTREACH REP, DION L V73.81 Hpv Screening 06/10/2011 MADL OUTREACH REP, DION L V76.2 Cervical Cancer Screening (pap Smear) 06/10/2011 MADL OUTREACH REP, DION L V72.31 Bank Messenger Exam, Routine 06/10/2011 MADL OUTREACH REP, DION L V73.81 Hpv Screening 06/10/2011 MADL OUTREACH REP, DION L V76.2 Cervical Cancer Screening (pap Smear) 06/10/2011 MADL OUTREACH REP, DION L V72.31 Bank Messenger Exam, Routine 06/10/2011 MADL OUTREACH REP, DION L V73.81 Hpv Screening 06/10/2011 MADL OUTREACH REP, DION L V76.2 Cervical Cancer Screening (pap Smear) 06/10/2011 MADL OUTREACH REP, DION L V72.31 Bank Messenger Exam, Routine 06/10/2011 MADL OUTREACH REP, DION L V73.81 Hpv Screening 06/10/2011 MADL OUTREACH REP, DION L V76.2 Cervical Cancer Screening (pap Smear) 06/10/2011 MADL OUTREACH REP, DION L V72.31 Bank Messenger Exam, Routine 06/10/2011 MADL OUTREACH REP, DION L V73.81 Hpv Screening 06/10/2011 MADL OUTREACH REP, DION L V76.2 Cervical Cancer Screening (pap Smear) 06/10/2011 MADL OUTREACH REP, DION L V72.31 Bank Messenger Exam, Routine 06/10/2011 MADL OUTREACH REP, DION L V73.81 Hpv Screening 06/10/2011 MADL OUTREACH REP, DION L V76.2 Cervical Cancer Screening (pap Smear) 06/10/2011 MADL OUTREACH REP, DION L V72.31 Bank Messenger Exam, Routine 06/10/2011 MADL OUTREACH REP, DION L V73.81 Hpv Screening 06/10/2011 MADL OUTREACH REP, DION L V76.2 Cervical Cancer Screening (pap Smear) 06/10/2011 MADL OUTREACH REP, DION L V72.31 Bank Messenger Exam, Routine 06/10/2011 MADL OUTREACH REP, DION L V73.81 Hpv Screening 06/10/2011 MADL OUTREACH REP, DION L V76.2 Cervical Cancer Screening (pap Smear) 06/10/2011 SHANNA LOCKETT DO K V72.31 Bank Messenger Exam, Routine 06/10/2011 GRANT LOCKETT DOA K V73.81 Hpv Screening 06/10/2011 LOCKETT GRANT CARRANZAA K V76.2 Cervical Cancer Screening (pap Smear) 06/10/2011 BARRY CASTELLANO APRN R V72.31 Bank Messenger Exam, Routine 06/10/2011 BARRY CASTELLANO APRN R V73.81 Hpv Screening 06/10/2011 BARRY CASTELLAON APRN R V76.2 Cervical Cancer Screening (pap Smear) 06/10/2011 GRANT LOCKETT DOA K V72.31 Bank Messenger Exam, Routine 06/10/2011 GRANT LOCKETT DOA K [...] HUMAN PAPILLOMA VIRUS INFECTION 07/21/2011 MARIEE GRISELDAERO OUTREACH REP, MARTÍNEZ N 795.01 Cerv Pap Smear (+) [...] Atyp Squamous Cells Undetermined Signif 07/21/2011 MADL OUTREACH REP, DION L 079.4 HUMAN PAPILLOMA VIRUS INFECTION 07/21/2011 MADL OUTREACH REP, DION L 795.01 Cerv Pap Smear (+) Atyp Squamous Cells Undetermined Signif 07/21/2011 MADL OUTREACH REP, DION L 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 PAPILLOMA VIRUS INFECTION 07/21/2011 MADL OUTREACH REP, DION L 795.01 Cerv Pap Smear (+) Atyp Squamous Cells Undetermined Signif 07/21/2011 MADL OUTREACH REP, DION L 079.4 HUMAN PAPILLOMA VIRUS INFECTION 07/21/2011 MADL OUTREACH REP, DION L 795.01 Cerv Pap Smear (+) Atyp Squamous Cells Undetermined Signif 07/21/2011 LEVY CARRANZA SHANNA K 079.4 HUMAN PAPILLOMA VIRUS INFECTION 07/21/2011 LEVY CARRANZA SHANNA K 795.01 Cerv Pap Smear (+) Atyp Squamous Cells Undetermined Signif 07/21/2011 MADL OUTREACH REP, DION L 079.4 HUMAN PAPILLOMA VIRUS INFECTION 07/21/2011 MADL OUTREACH REP, DION L 795.01 Cerv Pap Smear (+) Atyp Squamous Cells Undetermined Signif 07/21/2011 MADL OUTREACH REP, DION L 079.4 HUMAN PAPILLOMA VIRUS INFECTION 07/21/2011 MADL OUTREACH REP, DION L 795.01 Cerv Pap Smear (+) Atyp Squamous Cells Undetermined Signif 07/21/2011 MADL OUTREACH REP, DION L 079.4 HUMAN PAPILLOMA VIRUS INFECTION 07/21/2011 MADL OUTREACH REP, DION L 795.01 Cerv Pap Smear (+) Atyp Squamous Cells Undetermined Signif 07/21/2011 MADL OUTREACH REP, DION L 079.4 HUMAN PAPILLOMA VIRUS INFECTION 07/21/2011 BRITTANY OUTREACH REP, DION L 795.01 Cerv Pap Smear (+) Atyp Squamous Cells Undetermined Signif 07/21/2011 LAURE SOTO APRNA L 079.4 HUMAN PAPILLOMA VIRUS INFECTION 07/21/2011 BRITTANY OUTREACH REP, DION L 795.01 Cerv Pap Smear (+) Atyp Squamous Cells Undetermined Signif 07/21/2011 LAURE SOTO APRNA L 079.4 HUMAN PAPILLOMA VIRUS INFECTION 07/21/2011 BRITTANY DEL TORO, DION L 795.01 Cerv Pap Smear (+) Atyp Squamous Cells Undetermined Signif 07/21/2011 LAURE SOTO APRNA L 079.4 HUMAN PAPILLOMA VIRUS INFECTION 07/21/2011 BRITTANY OUTREACH REP, DION L 795.01 Cerv Pap Smear (+) [...] BENNETT MD V06.1 TDAP DX 05/13/2012 MADL OUTREACH REP, DION L V03.82 Ppv23 (pneumovax) Dx 05/13/2012 MADL OUTREACH REP, DION L V06.1 Tdap Dx 05/13/2012 LAURA BENNETT MD V03.82 Ppv23 (pneumovax) Dx 05/13/2012 LAURA BENNETT MD V06.1 Tdap Dx 05/13/2012 MADL OUTREACH REP, DION L V03.82 Ppv23 (pneumovax) Dx 05/13/2012 MADL OUTREACH REP, DION L V06.1 Tdap Dx 05/13/2012 LOCKETT DO, SHANNA K V03.82 Ppv23 (pneumovax) Dx 05/13/2012 LOCKETT DO, SHANNA K V06.1 Tdap Dx 05/13/2012 LOCKETT DO, SHANNA K V03.82 Ppv23 (pneumovax) Dx 05/13/2012 LOCKETT DO, SHANNA K V06.1 Tdap Dx 05/13/2012 MADL OUTREACH REP, DION L V03.82 Ppv23 (pneumovax) Dx 05/13/2012 MADL OUTREACH REP, DION L V06.1 Tdap Dx 05/13/2012 MADL OUTREACH REP, DION L V03.82 Ppv23 (pneumovax) Dx 05/13/2012 MADL OUTREACH REP, DION L V06.1 Tdap Dx 05/13/2012 MADL OUTREACH REP, DION L V03.82 Ppv23 (pneumovax) Dx 05/13/2012 MADL OUTREACH REP, DION L V06.1 Tdap Dx 05/13/2012 LOCKETT DO, SHANNA K V03.82 Ppv23 (pneumovax) Dx 05/13/2012 LOCKETT DO, SHANNA K V06.1 Tdap Dx 05/13/2012 MADL OUTREACH REP, DION L V03.82 Ppv23 (pneumovax) Dx 05/13/2012 MADL OUTREACH REP, DION L V06.1 Tdap Dx 05/13/2012 MADL OUTREACH REP, DION L V03.82 Ppv23 (pneumovax) Dx 05/13/2012 MADL OUTREACH REP, DION L V06.1 Tdap Dx 05/13/2012 MADL OUTREACH REP, DION L V03.82 Ppv23 (pneumovax) Dx 05/13/2012 MADL OUTREACH REP, DION L V06.1 Tdap Dx 05/13/2012 MADL OUTREACH REP, DION L V03.82 Ppv23 (pneumovax) Dx 05/13/2012 MADL OUTREACH REP, DION L V06.1 Tdap Dx 05/13/2012 MADL OUTREACH REP, DION L V03.82 Ppv23 (pneumovax) Dx 05/13/2012 MADL OUTREACH REP, DION L V06.1 Tdap Dx 05/13/2012 MADL OUTREACH REP, DION L V03.82 Ppv23 (pneumovax) Dx 05/13/2012 MADL OUTREACH REP, DION L V06.1 Tdap Dx 05/13/2012 MADL OUTREACH REP, DION L V03.82 Ppv23 (pneumovax) Dx 05/13/2012 MADL OUTREACH REP, DION L V06.1 Tdap Dx 05/13/2012 MADL OUTREACH REP, DION L V03.82 Ppv23 (pneumovax) Dx 05/13/2012 MADL OUTREACH REP, DION L V06.1 Tdap Dx 05/13/2012 MADL OUTREACH REP, DION L V03.82 Ppv23 (pneumovax) Dx 05/13/2012 MADL OUTREACH REP, DION L V06.1 Tdap Dx 05/13/2012 LOCKETT DO, SHANNA K V03.82 Ppv23 (pneumovax) Dx 05/13/2012 LOCKETT DO, SHANNA K V06.1 Tdap Dx 05/13/2012 GRAY OUTREACH REP, BARRY R V03.82 Ppv23 (pneumovax) Dx 05/13/2012 [...] K 786.07 WHEEZING 10/26/2012 NÉSTOR MOREIRA, BINDU Hidaglo 466.0 BRONCHITIS, ACUTE 10/26/2012 NÉSTOR MOREIRA, BINDU Hidalgo 786.07 WHEEZING 10/26/2012 SHELBI OUTREACH REP, CARLINE S 466.0 BRONCHITIS, ACUTE 10/26/2012 SHELBI OUTREACH REP, CARLINE S 786.07 WHEEZING 10/26/2012 SHELBI OUTREACH REP, CARLINE S 466.0 BRONCHITIS, ACUTE 10/26/2012 SHELBI OUTREACH REP, CARLINE S 786.07 WHEEZING 10/26/2012 LAURA BENNETT MD 466.0 BRONCHITIS, ACUTE 10/26/2012 LAURA BENNETT MD 786.07 WHEEZING 10/26/2012 LOBITO MOREIRA, ELIZABETH N 466.0 BRONCHITIS, ACUTE 10/26/2012 LOBITO MOREIRA, ELIZABETH N 786.07 WHEEZING 10/26/2012 LAURA BENNETT MD 466.0 BRONCHITIS, ACUTE 10/26/2012 LAURA BENNETT MD 786.07 WHEEZING 10/26/2012 LOCKETT DO, SHANNA K 466.0 BRONCHITIS, ACUTE 10/26/2012 LOCKETT DO, SHANNA K 786.07 WHEEZING 10/26/2012 MARIEE CASHERO OUTREACH REP, MARTÍNEZ N 466.0 BRONCHITIS, ACUTE 10/26/2012 MARIEE CASHERO OUTREACH REP, MARTÍNEZ N 786.07 WHEEZING 10/26/2012 NÉSTOR MOREIRA, BINDU Hidalgo 466.0 BRONCHITIS, ACUTE 10/26/2012 BINDU PALM MD 786.07 WHEEZING 10/26/2012 MARIEE CASHERO OUTREACH REP, MARTÍNEZ N 466.0 BRONCHITIS, ACUTE 10/26/2012 MARIEE CASHERO OUTREACH REP, MARTÍNEZ N 786.07 WHEEZING 10/26/2012 АННА DEL TORO, ANNEL FRANCES 466.0 BRONCHITIS, ACUTE 10/26/2012 АННА OUTREACH REP, ANNEL FRANCES 786.07 WHEEZING 10/26/2012 MADL OUTREACH REP, DION L 466.0 BRONCHITIS, ACUTE 10/26/2012 MADL OUTREACH REP, DION L 786.07 WHEEZING 10/26/2012 SABRINA MOREIRA, LAURA 466.0 BRONCHITIS, ACUTE 10/26/2012 LAURA BENNETT MD 786.07 WHEEZING 10/26/2012 MADL OUTREACH REP, DION L 466.0 BRONCHITIS, ACUTE 10/26/2012 MADL OUTREACH REP, DION L 786.07 WHEEZING 10/26/2012 LOCKETT DO, SHANNA K 466.0 BRONCHITIS, ACUTE 10/26/2012 LOCKETT DO, SHANNA K 786.07 WHEEZING 10/26/2012 LOCKETT DO, SHANNA K 466.0 BRONCHITIS, ACUTE 10/26/2012 LOCKETT DO, SHANNA K 786.07 WHEEZING 10/26/2012 MADL OUTREACH REP, DION L 466.0 BRONCHITIS, ACUTE 10/26/2012 MADL OUTREACH REP, DION L 786.07 WHEEZING 10/26/2012 MADL OUTREACH REP, DION L 466.0 BRONCHITIS, ACUTE 10/26/2012 MADL OUTREACH REP, DION L 786.07 WHEEZING 10/26/2012 MADL OUTREACH REP, DION L 466.0 BRONCHITIS, ACUTE 10/26/2012 MADL OUTREACH REP, DION L 786.07 WHEEZING 10/26/2012 LOCKETT DO, SHANNA K 466.0 BRONCHITIS, ACUTE 10/26/2012 LOCKETT DO, SHANNA K 786.07 WHEEZING 10/26/2012 MADL OUTREACH REP, DION L 466.0 BRONCHITIS, ACUTE 10/26/2012 MADL OUTREACH REP, DION L 786.07 WHEEZING 10/26/2012 MADL OUTREACH REP, DION L 466.0 BRONCHITIS, ACUTE 10/26/2012 MADL OUTREACH REP, DION L 786.07 WHEEZING 10/26/2012 MADL OUTREACH REP, DION L 466.0 BRONCHITIS, ACUTE 10/26/2012 MADL OUTREACH REP, DION L 786.07 WHEEZING 10/26/2012 MADL OUTREACH REP, DION L 466.0 BRONCHITIS, ACUTE 10/26/2012 MADL OUTREACH REP, DION L 786.07 WHEEZING 10/26/2012 MADL OUTREACH REP, DION L 466.0 BRONCHITIS, ACUTE 10/26/2012 MADL OUTREACH REP, DION L 786.07 WHEEZING 10/26/2012 MADL OUTREACH REP, DION L 466.0 BRONCHITIS, ACUTE 10/26/2012 MADL OUTREACH REP, DION L 786.07 WHEEZING 10/26/2012 MADL OUTREACH REP, DION L 466.0 BRONCHITIS, ACUTE 10/26/2012 MADL OUTREACH REP, DION L 786.07 WHEEZING 10/26/2012 MADL OUTREACH REP, DION L 466.0 BRONCHITIS, ACUTE 10/26/2012 MADL OUTREACH REP, DION L 786.07 WHEEZING 10/26/2012 MADL OUTREACH REP, DION L 466.0 BRONCHITIS, ACUTE 10/26/2012 MADL OUTREACH REP, DION L 786.07 WHEEZING 10/26/2012 LOCKETT DO SHANNA K 466.0 BRONCHITIS, ACUTE 10/26/2012 GRANT LOCKETT DOA K 786.07 WHEEZING 10/26/2012 CASTELLANO OUTREACH REP, BARRY R 466.0 BRONCHITIS, ACUTE 10/26/2012 CASTELLANO OUTREACH REP, BARRY R 786.07 WHEEZING 10/26/2012 LOCKETT DO, [...] BINDU PALM MD 627.8 PERIMENOPAUSE 11/07/2012 BINDU PLAM MD V73.81 HPV SCREENING 11/07/2012 BINDU PALM [...] MARY APRN 627.8 PERIMENOPAUSE 11/07/2012 JAYLENE PURDY OUTREACH REP, MARTÍNEZ N V73.81 HPV SCREENING 11/07/2012 JAYLENE [...] CERVICAL CANCER SCREENING (PAP SMEAR) 11/07/2012 MADL OUTREACH REP, DION L 627.8 PERIMENOPAUSE 11/07/2012 MADL OUTREACH REP, DION L V73.81 HPV SCREENING 11/07/2012 MADL OUTREACH REP, DION L V76.2 CERVICAL CANCER SCREENING (PAP SMEAR) 11/07/2012 MADL OUTREACH REP, DION L 627.8 PERIMENOPAUSE 11/07/2012 MADL OUTREACH REP, DION L V73.81 HPV SCREENING 11/07/2012 MADL OUTREACH REP, DION L V76.2 CERVICAL CANCER SCREENING (PAP SMEAR) 11/07/2012 MADL OUTREACH REP, DION L 627.8 PERIMENOPAUSE 11/07/2012 MADL OUTREACH REP, DION L V73.81 HPV SCREENING 11/07/2012 MADL OUTREACH REP, DION L V76.2 CERVICAL CANCER SCREENING (PAP SMEAR) 11/07/2012 LOCKETT SHANNA CARRANZA K 627.8 PERIMENOPAUSE 11/07/2012 LOCKETT GRANT CARRANZAA K V73.81 HPV SCREENING 11/07/2012 LOCKETT DOGRANTA K V76.2 CERVICAL CANCER SCREENING (PAP SMEAR) 11/07/2012 MADL OUTREACH REP, DION L 627.8 PERIMENOPAUSE 11/07/2012 MADL OUTREACH REP, IDON L V73.81 HPV SCREENING 11/07/2012 MADL OUTREACH REP, DION L V76.2 CERVICAL CANCER SCREENING (PAP SMEAR) 11/07/2012 MADL OUTREACH REP, DION L 627.8 PERIMENOPAUSE 11/07/2012 MADL OUTREACH REP, DION L V73.81 HPV SCREENING 11/07/2012 MADL OUTREACH REP, DION L V76.2 CERVICAL CANCER SCREENING (PAP SMEAR) 11/07/2012 MADL OUTREACH REP, DION L 627.8 PERIMENOPAUSE 11/07/2012 MADL OUTREACH REP, DION L V73.81 HPV SCREENING 11/07/2012 MADL OUTREACH REP, DION L V76.2 CERVICAL CANCER SCREENING (PAP SMEAR) 11/07/2012 MADL OUTREACH REP, DION L 627.8 PERIMENOPAUSE 11/07/2012 MADL OUTREACH REP, DION L V73.81 HPV SCREENING 11/07/2012 MADL OUTREACH REP, DION L V76.2 CERVICAL CANCER SCREENING (PAP SMEAR) 11/07/2012 MADL OUTREACH REP, DION L 627.8 PERIMENOPAUSE 11/07/2012 MADL OUTREACH REP, DION L V73.81 HPV SCREENING 11/07/2012 MADL OUTREACH REP, DION L V76.2 CERVICAL CANCER SCREENING (PAP SMEAR) 11/07/2012 MADL OUTREACH REP, DION L 627.8 PERIMENOPAUSE 11/07/2012 MADL OUTREACH REP, DION L V73.81 HPV SCREENING 11/07/2012 MADL OUTREACH REP, DION L V76.2 CERVICAL CANCER SCREENING (PAP SMEAR) 11/07/2012 MADL OUTREACH REP, DION L 627.8 PERIMENOPAUSE 11/07/2012 MADL OUTREACH REP, DION L V73.81 HPV SCREENING 11/07/2012 MADL OUTREACH REP, DION L V76.2 CERVICAL CANCER SCREENING (PAP SMEAR) 11/07/2012 MADL OUTREACH REP, DION L 627.8 PERIMENOPAUSE 11/07/2012 MADL OUTREACH REP, DION L V73.81 HPV SCREENING 11/07/2012 MADL OUTREACH REP, DION L V76.2 CERVICAL CANCER SCREENING (PAP SMEAR) 11/07/2012 MADL OUTREACH REP, DION L 627.8 PERIMENOPAUSE 11/07/2012 MADL OUTREACH REP, DION L V73.81 HPV SCREENING 11/07/2012 MADL OUTREACH REP, DION L V76.2 CERVICAL CANCER SCREENING (PAP [...] GLANDULAR CELLS OF UNDETERMINED SIGNIFICANCE) 12/05/2012 MADL OUTREACH REP, DION L 788.1 DYSURIA 12/05/2012 MADL OUTREACH REP, DION L 795.00 ABNORMAL PAP - AGCUS (ATYPICAL GLANDULAR CELLS OF UNDETERMINED SIGNIFICANCE) 12/05/2012 LAURA BENNETT MD 788.1 DYSURIA 12/05/2012 LAURA BENNETT MD 795.00 ABNORMAL PAP - AGCUS (ATYPICAL GLANDULAR CELLS OF UNDETERMINED SIGNIFICANCE ) 12/05/2012 MADL OUTREACH REP, DION L 788.1 DYSURIA 12/05/2012 MADL OUTREACH REP, DION L 795.00 ABNORMAL PAP - AGCUS (ATYPICAL GLANDULAR CELLS OF UNDETERMINED SIGNIFICANCE) 12/05/2012 LOCKETT DO, SHANNA K 788.1 DYSURIA 12/05/2012 LOCKETT DO, SHANNA K 795.00 ABNORMAL PAP - AGCUS (ATYPICAL GLANDULAR CELLS OF UNDETERMINED SIGNIFICANCE) 12/05/2012 LOCKETT DO, SHANNA K 788.1 DYSURIA 12/05/2012 LOCKETT DO, SHANNA K 795.00 ABNORMAL PAP - AGCUS (ATYPICAL GLANDULAR CELLS OF UNDETERMINED SIGNIFICANCE) 12/05/2012 MADL OUTREACH REP, DION L 788.1 DYSURIA 12/05/2012 MADL OUTREACH REP, DION L 795.00 ABNORMAL PAP - AGCUS (ATYPICAL GLANDULAR CELLS OF UNDETERMINED SIGNIFICANCE) 12/05/2012 MADL OUTREACH REP, DION L 788.1 DYSURIA 12/05/2012 MADL OUTREACH REP, DION L 795.00 ABNORMAL PAP - AGCUS (ATYPICAL GLANDULAR CELLS OF UNDETERMINED SIGNIFICANCE) 12/05/2012 MADL OUTREACH REP, DION L 788.1 DYSURIA 12/05/2012 MADL OUTREACH REP, DION L 795.00 ABNORMAL PAP - AGCUS (ATYPICAL GLANDULAR CELLS OF UNDETERMINED SIGNIFICANCE) 12/05/2012 LOCKETT DO, SHANNA K 788.1 DYSURIA 12/05/2012 LOCKETT DO, SHANNA K 795.00 ABNORMAL PAP - AGCUS (ATYPICAL GLANDULAR CELLS OF UNDETERMINED SIGNIFICANCE) 12/05/2012 MADL OUTREACH REP, DION L 788.1 DYSURIA 12/05/2012 MADL OUTREACH REP, DION L 795.00 ABNORMAL PAP - AGCUS (ATYPICAL GLANDULAR CELLS OF UNDETERMINED SIGNIFICANCE) 12/05/2012 MADL OUTREACH REP, DION L 788.1 DYSURIA 12/05/2012 MADL OUTREACH REP, DION L 795.00 ABNORMAL PAP - AGCUS (ATYPICAL GLANDULAR CELLS OF UNDETERMINED SIGNIFICANCE) 12/05/2012 MADL OUTREACH REP, DION L 788.1 DYSURIA 12/05/2012 MADL OUTREACH REP, DION L 795.00 ABNORMAL PAP - AGCUS (ATYPICAL GLANDULAR CELLS OF UNDETERMINED SIGNIFICANCE) 12/05/2012 MADL OUTREACH REP, DION L 788.1 DYSURIA 12/05/2012 MADL OUTREACH REP, DION L 795.00 ABNORMAL PAP - AGCUS (ATYPICAL GLANDULAR CELLS OF UNDETERMINED SIGNIFICANCE) 12/05/2012 MADL OUTREACH REP, DION L 788.1 DYSURIA 12/05/2012 MADL OUTREACH REP, DION L 795.00 ABNORMAL PAP - AGCUS (ATYPICAL GLANDULAR CELLS OF UNDETERMINED SIGNIFICANCE) 12/05/2012 MADL OUTREACH REP, DION L 788.1 DYSURIA 12/05/2012 MADL OUTREACH REP, DION L 795.00 ABNORMAL PAP - AGCUS (ATYPICAL GLANDULAR CELLS OF UNDETERMINED SIGNIFICANCE) 12/05/2012 MADL OUTREACH REP, DION L 788.1 DYSURIA 12/05/2012 MADL OUTREACH REP, DION L 795.00 ABNORMAL PAP - AGCUS (ATYPICAL GLANDULAR CELLS OF UNDETERMINED SIGNIFICANCE) 12/05/2012 MADL OUTREACH REP, DION L 788.1 DYSURIA 12/05/2012 MADL OUTREACH REP, DION L 795.00 ABNORMAL PAP - AGCUS (ATYPICAL GLANDULAR CELLS OF UNDETERMINED SIGNIFICANCE) 12/05/2012 MADL OUTREACH REP, DION L 788.1 DYSURIA 12/05/2012 DION SOTO APRN L 795.00 ABNORMAL PAP - AGCUS (ATYPICAL GLANDULAR CELLS OF UNDETERMINED SIGNIFICANCE) 12/05/2012 GRANT LOCKETT DOA K 788.1 DYSURIA 12/05/2012 GRANT LOCKETT DOA K 795.00 ABNORMAL PAP - AGCUS (ATYPICAL GLANDULAR CELLS OF UNDETERMINED SIGNIFICANCE) 12/05/2012 CASTELLANO OUTREACH REPJACKELINEBARRY R 788.1 DYSURIA 12/05/2012 CASTELLANO OUTREACH REP, BARRY R 795.00 ABNORMAL PAP - AGCUS [...] BINDU PALM MD 477.9 RHINITIS 06/02/2013 SHELBI OUTREACH REP, CARLINE S 477.9 RHINITIS 06/02/2013 SHELBI OUTREACH REP, CARLINE S 477.9 RHINITIS 06/02/2013 SABRINA MOREIRA, LAURA 477.9 RHINITIS 06/02/2013 LOBITO MOREIRA, ELIZABETH N 477.9 RHINITIS 06/02/2013 SABRINA MOREIRA, LAURA 477.9 RHINITIS 06/02/2013 LOCKETT DO, SHANNA K 477.9 RHINITIS 06/02/2013 MARIEE CASHERO OUTREACH REP, MARTÍNEZ N 477.9 RHINITIS 06/02/2013 NÉSTOR MOREIRA, BINDU Hidalgo 477.9 RHINITIS 06/02/2013 MARIEE CASHERO OUTREACH REP, MARTÍNEZ N 477.9 RHINITIS 06/02/2013 АННА DEL TORO, ANNEL YVROSE 477.9 RHINITIS 06/02/2013 MADL OUTREACH REP, DION L 477.9 RHINITIS 06/02/2013 SABRINA MOREIRA, LAURA 477.9 RHINITIS 06/02/2013 MADL OUTREACH REP, DION L 477.9 RHINITIS 06/02/2013 LOCKETT DO, SHANNA K 477.9 RHINITIS 06/02/2013 LOCKETT DO, SHANNA K 477.9 RHINITIS 06/02/2013 MADL OUTREACH REP, DION L 477.9 RHINITIS 06/02/2013 MADL OUTREACH REP, DION L 477.9 RHINITIS 06/02/2013 MADL OUTREACH REP, DION L 477.9 RHINITIS 06/02/2013 LOCKETT DO, SHANNA K 477.9 RHINITIS 06/02/2013 MADL OUTREACH REP, DION L 477.9 RHINITIS 06/02/2013 MADL OUTREACH REP, DION L 477.9 RHINITIS 06/02/2013 MADL OUTREACH REP, DION L 477.9 RHINITIS 06/02/2013 MADL OUTREACH REP, DION L 477.9 RHINITIS 06/02/2013 MADL OUTREACH REP, DION L 477.9 RHINITIS 06/02/2013 MADL OUTREACH REP, DION L 477.9 RHINITIS 06/02/2013 MADL OUTREACH REP, DION L 477.9 RHINITIS 06/02/2013 MADL OUTREACH REP, DION L 477.9 RHINITIS 06/02/2013 MADL OUTREACH REP, DION L 477.9 RHINITIS 06/02/2013 LOCKETT DO, SHANNA K 477.9 RHINITIS 06/02/2013 CASTELLANO OUTREACH REP, BARRY R 477.9 RHINITIS 06/02/2013 LOCKETT DO, [...] PALM MD 799.2 anxiety 06/21/2013 JAYLENE PURDY OUTREACH REP, MARTÍNEZ N 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 06/21/2013 JAYLENE PURDY APRN, MARTÍNEZ N 799.2 anxiety 06/21/2013 АННА DE LUNANANNEL 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 06/21/2013 АННА DE LUNANANNEL 799.2 anxiety 06/21/2013 MADL OUTREACH REP, DION L 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 06/21/2013 MADL OUTREACH REP, DION L 799.2 anxiety 06/21/2013 LAURA BENNETT MD 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 06/21/2013 LAURA BENNETT MD 799.2 anxiety 06/21/2013 MADL OUTREACH REP, DION L 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 06/21/2013 MADL OUTREACH REP, DION L 799.2 anxiety 06/21/2013 LOCKETT DO, SHANNA K 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 06/21/2013 LOCKETT DO, SHANNA K 799.2 anxiety 06/21/2013 LOCKETT DO, SHANNA K 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 06/21/2013 LOCKETT DO, SHANNA K 799.2 anxiety 06/21/2013 MADL OUTREACH REP, DION L 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 06/21/2013 MADL OUTREACH REP, DION L 799.2 anxiety 06/21/2013 MADL OUTREACH REP, DION L 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 06/21/2013 MADL OUTREACH REP, DION L 799.2 anxiety 06/21/2013 MADL OUTREACH REP, DION L 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 06/21/2013 MADL OUTREACH REP, DION L 799.2 anxiety 06/21/2013 LOCKETT DO, SHANNA K 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 06/21/2013 LOCKETT DO, SHANNA K 799.2 anxiety 06/21/2013 MADL OUTREACH REP, DION L 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 06/21/2013 MADL OUTREACH REP, DION L 799.2 anxiety 06/21/2013 MADL OUTREACH REP, DION L 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 06/21/2013 MADL OUTREACH REP, DION L 799.2 anxiety 06/21/2013 MADL OUTREACH REP, DION L 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 06/21/2013 MADL OUTREACH REP, DION L 799.2 anxiety 06/21/2013 MADL OUTREACH REP, DION L 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 06/21/2013 MADL OUTREACH REP, DION L 799.2 anxiety 06/21/2013 MADL OUTREACH REP, DION L 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 06/21/2013 MADL OUTREACH REP, DION L 799.2 anxiety 06/21/2013 MADL OUTREACH REP, DION L 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 06/21/2013 MADL OUTREACH REP, IDON L 799.2 anxiety 06/21/2013 MADL OUTREACH REP, DION L 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 06/21/2013 MADL OUTREACH REP, DION L 799.2 anxiety 06/21/2013 MADL OUTREACH REP, DION L 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 06/21/2013 MADL OUTREACH REP, DION L 799.2 anxiety 06/21/2013 MADL OUTREACH REP, DION L 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 06/21/2013 MADL OUTREACH REP, DION L 799.2 anxiety 06/21/2013 LOCKETT DO, SHANNA K 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 06/21/2013 LOCKETT DO, SHANNA K 799.2 anxiety 06/21/2013 CASTELLANO OUTREACH REP, BARRY R 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 06/21/2013 CASTELLANO OUTREACH REP, BARRY R 799.2 anxiety 06/21/2013 LOCKETT DO, SHANNA K 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 06/21/2013 SHANNA LOCKETT DO 799.2 anxiety 07/18/2013 LOCKETT SHANNA CARRANZA K V04.81 FLU SHOT 07/18/2013 NÉSTOR MOREIRA, BINDU Hidalgo V04.81 FLU SHOT 07/18/2013 SHELBI OUTREACH REP, CARLINE S V04.81 FLU SHOT 07/18/2013 SHELBI OUTREACH REP, CARLINE S V04.81 FLU SHOT 07/18/2013 SABRINA MOREIRA, LAURA V04.81 FLU SHOT 07/18/2013 LOBITO MOREIRA, ELIZABETH Hale V04.81 FLU SHOT 07/18/2013 SABRINA MOREIRA, LAURA V04.81 FLU SHOT 07/18/2013 SHANNA LOCKETT DO V04.81 FLU SHOT 07/18/2013 JAYLENE CASHUMM OUTREACH REP, MARTÍNEZ N V04.81 FLU SHOT 07/18/2013 BINDU PALM MD V04.81 FLU SHOT 07/18/2013 JAYLENE PURDY OUTREACH REP, MARTÍNEZ N V04.81 FLU SHOT 07/18/2013 ANNEL JJ APRN V04.81 FLU SHOT 07/18/2013 MADL OUTREACH REP, DION L V04.81 FLU SHOT 07/18/2013 LAURA BENNETT MD V04.81 FLU SHOT 07/18/2013 MADL OUTREACH REP, DION L V04.81 FLU SHOT 07/18/2013 LOCKETT DOSHANNA K V04.81 FLU SHOT 07/18/2013 LOCKETT DOSHANNA K V04.81 FLU SHOT 07/18/2013 MADL OUTREACH REP, DION L V04.81 FLU SHOT 07/18/2013 MADL OUTREACH REP, DION L V04.81 FLU SHOT 07/18/2013 MADL OUTREACH REP, DION L V04.81 FLU SHOT 07/18/2013 LOCKETT DOSHANNA K V04.81 FLU SHOT 07/18/2013 MADL OUTREACH REP, DION L V04.81 FLU SHOT 07/18/2013 MADL OUTREACH REP, DION L V04.81 FLU SHOT 07/18/2013 MADL OUTREACH REP, DION L V04.81 FLU SHOT 07/18/2013 MADL OUTREACH REP, DION L V04.81 FLU SHOT 07/18/2013 MADL OUTREACH REP, DION L V04.81 FLU SHOT 07/18/2013 MADL OUTREACH REP, DION L V04.81 FLU SHOT 07/18/2013 MADL OUTREACH REP, DION L V04.81 FLU SHOT 07/18/2013 MADL OUTREACH REP, DION L V04.81 FLU SHOT 07/18/2013 MADL OUTREACH REP, DION L V04.81 FLU SHOT 07/18/2013 LOCKETT DO, SHANNA K V04.81 FLU SHOT 07/18/2013 CASTELLANO OUTREACH REP, BARRY R V04.81 FLU SHOT 07/18/2013 LOCKETT DO, SHANNA K V04.81 FLU SHOT 09/07/2013 SHELBI OUTREACH REP, CARLINE S 216.9 MOLE/NEVUS - SITE UNSPECIFIED 09/07/2013 SHELBI OUTREACH REP, CARLINE S 511.0 PLEURISY NOS 09/07/2013 SHELBI OUTREACH REP, CARLINE S 216.9 MOLE/NEVUS - SITE UNSPECIFIED 09/07/2013 SHELBI OUTREACH REP, CARLINE S 511.0 PLEURISY NOS 09/07/2013 LAURA BENNETT MD 216.9 MOLE/NEVUS - SITE UNSPECIFIED 09/07/2013 LAURA BENNETT MD 511.0 PLEURISY NOS 09/07/2013 LOBITO MOREIRA, ELIZABETH Hale 216.9 MOLE/NEVUS - SITE UNSPECIFIED 09/07/2013 LOBITO MOREIRA, ELIZABETH N 511.0 PLEURISY NOS 09/07/2013 LAURA BENNETT MD 216.9 MOLE/NEVUS - SITE UNSPECIFIED 09/07/2013 LAURA BENNTET MD 511.0 PLEURISY NOS 09/07/2013 LOCKETT DO, SHANNA K 216.9 MOLE/NEVUS - SITE UNSPECIFIED 09/07/2013 LOCKETT DO, SHANNA K 511.0 PLEURISY NOS 09/07/2013 JAYLENE PURDY OUTREACH REP, MARTÍNEZ N 216.9 MOLE/NEVUS - SITE UNSPECIFIED 09/07/2013 JAYLENE PURDY OUTREACH REP, MARTÍNEZ N 511.0 PLEURISY NOS 09/07/2013 BINDU PALM MD 216.9 MOLE/NEVUS - SITE UNSPECIFIED 09/07/2013 BINDU PALM MD 511.0 PLEURISY NOS 09/07/2013 MARIEE CASHERO OUTREACH REP, MARTÍNEZ N 216.9 MOLE/NEVUS - SITE UNSPECIFIED 09/07/2013 MARIEE CASHERO OUTREACH REP, MARTÍNEZ N 511.0 PLEURISY NOS 09/07/2013 JJ OUTREACH REP, ANNEL FRANCES 216.9 MOLE/NEVUS - SITE UNSPECIFIED 09/07/2013 JJ OUTREACH REP, ANNEL FRANCES 511.0 PLEURISY NOS 09/07/2013 MADL OUTREACH REP, DION L 216.9 MOLE/NEVUS - SITE UNSPECIFIED 09/07/2013 MADL OUTREACH REP, DION L 511.0 PLEURISY NOS 09/07/2013 LAURA BENNETT MD 216.9 MOLE/NEVUS - SITE UNSPECIFIED 09/07/2013 LAURA BENNETT MD 511.0 PLEURISY NOS 09/07/2013 MADL OUTREACH REP, DION L 216.9 MOLE/NEVUS - SITE UNSPECIFIED 09/07/2013 MADL OUTREACH REP, DION L 511.0 PLEURISY NOS 09/07/2013 LOCKETT DO, SHANNA K 216.9 MOLE/NEVUS - SITE UNSPECIFIED 09/07/2013 LOCKETT DO, SHANNA K 511.0 PLEURISY NOS 09/07/2013 LOCKETT DO, SHANNA K 216.9 MOLE/NEVUS - SITE UNSPECIFIED 09/07/2013 LOCKETT DO, SHANNA K 511.0 PLEURISY NOS 09/07/2013 MADL OUTREACH REP, DION L 216.9 MOLE/NEVUS - SITE UNSPECIFIED 09/07/2013 MADL OUTREACH REP, DION L 511.0 PLEURISY NOS 09/07/2013 MADL OUTREACH REP, DION L 216.9 MOLE/NEVUS - SITE UNSPECIFIED 09/07/2013 MADL OUTREACH REP, DION L 511.0 PLEURISY NOS 09/07/2013 MADL OUTREACH REP, DION L 216.9 MOLE/NEVUS - SITE UNSPECIFIED 09/07/2013 MADL OUTREACH REP, DION L 511.0 PLEURISY NOS 09/07/2013 LOCKETT DO, SHANNA K 216.9 MOLE/NEVUS - SITE UNSPECIFIED 09/07/2013 LOCKETT DO, SHANNA K 511.0 PLEURISY NOS 09/07/2013 MADL OUTREACH REP, DION L 216.9 MOLE/NEVUS - SITE UNSPECIFIED 09/07/2013 MADL OUTREACH REP, DION L 511.0 PLEURISY NOS 09/07/2013 MADL OUTREACH REP, DION L 216.9 MOLE/NEVUS - SITE UNSPECIFIED 09/07/2013 MADL OUTREACH REP, DION L 511.0 PLEURISY NOS 09/07/2013 MADL OUTREACH REP, DION L 216.9 MOLE/NEVUS - SITE UNSPECIFIED 09/07/2013 MADL OUTREACH REP, DION L 511.0 PLEURISY NOS 09/07/2013 MADL OUTREACH REP, DION L 216.9 MOLE/NEVUS - SITE UNSPECIFIED 09/07/2013 MADL OUTREACH REP, DION L 511.0 PLEURISY NOS 09/07/2013 MADL OUTREACH REP, DION L 216.9 MOLE/NEVUS - SITE UNSPECIFIED 09/07/2013 MADL OUTREACH REP, DION L 511.0 PLEURISY NOS 09/07/2013 MADL OUTREACH REP, DION L 216.9 MOLE/NEVUS - SITE UNSPECIFIED 09/07/2013 MADL OUTREACH REP, DION L 511.0 PLEURISY NOS 09/07/2013 MADL OUTREACH REP, DION L 216.9 MOLE/NEVUS - SITE UNSPECIFIED 09/07/2013 MADL OUTREACH REP, DION L 511.0 PLEURISY NOS 09/07/2013 MADL OUTREACH REP, DION L 216.9 MOLE/NEVUS - SITE UNSPECIFIED 09/07/2013 MADL OUTREACH REP, DION L 511.0 PLEURISY NOS 09/07/2013 MADL OUTREACH REP, DION L 216.9 MOLE/NEVUS - SITE UNSPECIFIED 09/07/2013 MADL OUTREACH REP, DION L 511.0 PLEURISY NOS 09/07/2013 LOCKETT DO, SHANNA K 216.9 MOLE/NEVUS - SITE UNSPECIFIED 09/07/2013 LOCKETT DO, SHANNA K 511.0 PLEURISY NOS 09/07/2013 GRAY OUTREACH REP, BARRY R 216.9 MOLE/NEVUS - SITE UNSPECIFIED 09/07/2013 GRAY DEL TORO BARRY R 511.0 PLEURISY NOS 09/07/2013 LOCKETT DO, SHANNA K 216.9 MOLE/NEVUS - SITE UNSPECIFIED 09/07/2013 LOCKETT DO, SHANNA K 511.0 PLEURISY NOS 09/16/2013 JOHN KILPATRICK OUTREACH REP Ot 491.21 OBSTR CHRONIC BRONCHITIS, W (ACUTE) EXAC 09/16/2013 JOHN KILPATRICK OUTREACH REP Ot 786.05 SHORTNESS OF BREATH 09/20/2013 JOHN KILPATRICK OUTREACH REP Ot 496 CHR AIRWAY OBSTRUCT NEC 09/20/2013 JOHN KILPATRICK OUTREACH REP Ot 786.05 SHORTNESS OF BREATH 09/29/2013 ELIZABETH [...] BODY MASS INDEX 40.0-44.9, ADULT 12/26/2013 MARTÍNEZ MRAY APRN N 112.0 CANDIDIASIS OF MOUTH 12/26/2013 MARTÍNEZ MARY APRN N 719.41 PAIN IN JOINT INVOLVING SHOULDER REGION 12/26/2013 MARTÍNEZ MARY APRN N 729.5 PAIN IN LIMB 12/26/2013 ANNEL JJ APRN 112.0 CANDIDIASIS OF MOUTH 12/26/2013 ANNEL JJ APRN 719.41 PAIN IN JOINT INVOLVING SHOULDER REGION 12/26/2013 ANNEL JJ APRN 729.5 PAIN IN LIMB 12/26/2013 MADL OUTREACH REP, DION L 112.0 CANDIDIASIS OF MOUTH 12/26/2013 MADL OUTREACH REP DION L 719.41 PAIN IN JOINT INVOLVING SHOULDER REGION 12/26/2013 BRITTANY DEL TORO DION L 729.5 PAIN IN LIMB 12/26/2013 LAURA BENNETT MD 112.0 CANDIDIASIS OF MOUTH 12/26/2013 LAURA BENNETT MD 719.41 PAIN IN JOINT INVOLVING SHOULDER REGION 12/26/2013 LAURA BENNETT MD 729.5 PAIN IN LIMB 12/26/2013 MADL OUTREACH REP, DION L 112.0 CANDIDIASIS OF MOUTH 12/26/2013 BIRDIEL OUTREACH REP, DION L 719.41 PAIN IN JOINT INVOLVING SHOULDER REGION 12/26/2013 BIRDIEL OUTREACH REP, DION L 729.5 PAIN IN LIMB 12/26/2013 [...] K 729.5 PAIN IN LIMB 12/26/2013 MADL OUTREACH REP, DION L 112.0 CANDIDIASIS OF MOUTH 12/26/2013 MADL OUTREACH REP, DION L 719.41 PAIN IN JOINT INVOLVING SHOULDER REGION 12/26/2013 MADL OUTREACH REP, DION L 729.5 PAIN IN LIMB 12/26/2013 MADL OUTREACH REP, DION L 112.0 CANDIDIASIS OF MOUTH 12/26/2013 MADL OUTREACH REP, DION L 719.41 PAIN IN JOINT INVOLVING SHOULDER REGION 12/26/2013 MADL OUTREACH REP, DION L 729.5 PAIN IN LIMB 12/26/2013 MADL OUTREACH REP, DION L 112.0 CANDIDIASIS OF MOUTH 12/26/2013 MADL OUTREACH REP, DION L 719.41 PAIN IN JOINT INVOLVING SHOULDER REGION 12/26/2013 MADL OUTREACH REP, DION L 729.5 PAIN IN LIMB 12/26/2013 LOCKETT DO, SHANNA K 112.0 CANDIDIASIS OF MOUTH 12/26/2013 LOCKETT DO, SHANNA K 719.41 PAIN IN JOINT INVOLVING SHOULDER REGION 12/26/2013 LOCKETT DO, SHANNA K 729.5 PAIN IN LIMB 12/26/2013 MADL OUTREACH REP, DION L 112.0 CANDIDIASIS OF MOUTH 12/26/2013 MADL OUTREACH REP, DION L 719.41 PAIN IN JOINT INVOLVING SHOULDER REGION 12/26/2013 MADL OUTREACH REP, DION L 729.5 PAIN IN LIMB 12/26/2013 MADL OUTREACH REP, DION L 112.0 CANDIDIASIS OF MOUTH 12/26/2013 MADL OUTREACH REP, DION L 719.41 PAIN IN JOINT INVOLVING SHOULDER REGION 12/26/2013 MADL OUTREACH REP, DION L 729.5 PAIN IN LIMB 12/26/2013 MADL OUTREACH REP, DION L 112.0 CANDIDIASIS OF MOUTH 12/26/2013 MADL OUTREACH REP, DION L 719.41 PAIN IN JOINT INVOLVING SHOULDER REGION 12/26/2013 MADL OUTREACH REP, DION L 729.5 PAIN IN LIMB 12/26/2013 MADL OUTREACH REP, DION L 112.0 CANDIDIASIS OF MOUTH 12/26/2013 MADL OUTREACH REP, DION L 719.41 PAIN IN JOINT INVOLVING SHOULDER REGION 12/26/2013 MADL OUTREACH REP, DION L 729.5 PAIN IN LIMB 12/26/2013 MADL OUTREACH REP, DION L 112.0 CANDIDIASIS OF MOUTH 12/26/2013 MADL OUTREACH REP, DION L 719.41 PAIN IN JOINT INVOLVING SHOULDER REGION 12/26/2013 MADL OUTREACH REP, DION L 729.5 PAIN IN LIMB 12/26/2013 MADL OUTREACH REP, DION L 112.0 CANDIDIASIS OF MOUTH 12/26/2013 MADL OUTREACH REP, DION L 719.41 PAIN IN JOINT INVOLVING SHOULDER REGION 12/26/2013 MADL OUTREACH REP, DION L 729.5 PAIN IN LIMB 12/26/2013 MADL OUTREACH REP, DION L 112.0 CANDIDIASIS OF MOUTH 12/26/2013 MADL OUTREACH REP, DION L 719.41 PAIN IN JOINT INVOLVING SHOULDER REGION 12/26/2013 MADL OUTREACH REP, DION L 729.5 PAIN IN LIMB 12/26/2013 MADL OUTREACH REP, DION L 112.0 CANDIDIASIS OF MOUTH 12/26/2013 MADL OUTREACH REP, DION L 719.41 PAIN IN JOINT INVOLVING SHOULDER REGION 12/26/2013 MADL OUTREACH REP, DION L 729.5 PAIN IN LIMB 12/26/2013 MADL OUTREACH REP, DION L 112.0 CANDIDIASIS OF MOUTH 12/26/2013 MADL OUTREACH REP, DION L 719.41 PAIN IN JOINT INVOLVING SHOULDER REGION 12/26/2013 MADL OUTREACH REP, DION L 729.5 PAIN IN LIMB 12/26/2013 [...] UNSPECIFIED TYPE NOT STATED UNCONTROLLED 04/09/2014 MADL OUTREACH REP, DION L 250.02 DIABETES MELLITUS WITHOUT MENTION OF COMPLICATION TYPE II OR UNSPECIFIED TYPE UNCONTROLLED 04/09/2014 MADL OUTREACH REP, DION L 250.80 DIABETES WITH OTHER SPECIFIED MANIFESTATIONS TYPE II OR UNSPECIFIED TYPE NOT STATED UNCONTROLLED 04/09/2014 MADL OUTREACH REP, DION L 250.02 DIABETES MELLITUS WITHOUT MENTION OF COMPLICATION TYPE II OR UNSPECIFIED TYPE UNCONTROLLED 04/09/2014 MADL OUTREACH REP, DION L 250.80 DIABETES WITH OTHER SPECIFIED MANIFESTATIONS TYPE II OR UNSPECIFIED TYPE NOT STATED UNCONTROLLED 04/09/2014 MADL OUTREACH REP, DION L 250.02 DIABETES MELLITUS WITHOUT MENTION OF COMPLICATION TYPE II OR UNSPECIFIED TYPE UNCONTROLLED 04/09/2014 MADL OUTREACH REP, DION L 250.80 DIABETES WITH OTHER SPECIFIED MANIFESTATIONS TYPE II OR UNSPECIFIED TYPE NOT STATED UNCONTROLLED 04/09/2014 SHANNA LOCKETT DO K 250.02 DIABETES MELLITUS WITHOUT MENTION OF COMPLICATION TYPE II OR UNSPECIFIED TYPE UNCONTROLLED 04/09/2014 SHANNA LOCKETT DO K 250.80 DIABETES WITH OTHER SPECIFIED MANIFESTATIONS TYPE II OR UNSPECIFIED TYPE NOT STATED UNCONTROLLED 04/09/2014 MADL OUTREACH REP, DION L 250.02 DIABETES MELLITUS WITHOUT MENTION OF COMPLICATION TYPE II OR UNSPECIFIED TYPE UNCONTROLLED 04/09/2014 MADL OUTREACH REP, DION L 250.80 DIABETES WITH OTHER SPECIFIED MANIFESTATIONS TYPE II OR UNSPECIFIED TYPE NOT STATED UNCONTROLLED 04/09/2014 MADL OUTREACH REP, DION L 250.02 DIABETES MELLITUS WITHOUT MENTION OF COMPLICATION TYPE II OR UNSPECIFIED TYPE UNCONTROLLED 04/09/2014 MADL OUTREACH REP, DION L 250.80 DIABETES WITH OTHER SPECIFIED MANIFESTATIONS TYPE II OR UNSPECIFIED TYPE NOT STATED UNCONTROLLED 04/09/2014 MADL OUTREACH REP, DION L 250.02 DIABETES MELLITUS WITHOUT MENTION OF COMPLICATION TYPE II OR UNSPECIFIED TYPE UNCONTROLLED 04/09/2014 MADL OUTREACH REP, DION L 250.80 DIABETES WITH OTHER SPECIFIED MANIFESTATIONS TYPE II OR UNSPECIFIED TYPE NOT STATED UNCONTROLLED 04/09/2014 MADL OUTREACH REP, DION L 250.02 DIABETES MELLITUS WITHOUT MENTION OF COMPLICATION TYPE II OR UNSPECIFIED TYPE UNCONTROLLED 04/09/2014 MADL OUTREACH REP, DION L 250.80 DIABETES WITH OTHER SPECIFIED MANIFESTATIONS TYPE II OR UNSPECIFIED TYPE NOT STATED UNCONTROLLED 04/09/2014 MADL OUTREACH REP, DION L 250.02 DIABETES MELLITUS WITHOUT MENTION OF COMPLICATION TYPE II OR UNSPECIFIED TYPE UNCONTROLLED 04/09/2014 MADL OUTREACH REP, DION L 250.80 DIABETES WITH OTHER SPECIFIED MANIFESTATIONS TYPE II OR UNSPECIFIED TYPE NOT STATED UNCONTROLLED 04/09/2014 MADL OUTREACH REP, DION L 250.02 DIABETES MELLITUS WITHOUT MENTION OF COMPLICATION TYPE II OR UNSPECIFIED TYPE UNCONTROLLED 04/09/2014 MADL OUTREACH REP, DOIN L 250.80 DIABETES WITH OTHER SPECIFIED MANIFESTATIONS TYPE II OR UNSPECIFIED TYPE NOT STATED UNCONTROLLED 04/09/2014 MADL OUTREACH REP, DION L 250.02 DIABETES MELLITUS WITHOUT MENTION OF COMPLICATION TYPE II OR UNSPECIFIED TYPE UNCONTROLLED 04/09/2014 MADL OUTREACH REP, DION L 250.80 DIABETES WITH OTHER SPECIFIED MANIFESTATIONS TYPE II OR UNSPECIFIED TYPE NOT STATED UNCONTROLLED 04/09/2014 MADL OUTREACH REP, DION L 250.02 DIABETES MELLITUS WITHOUT MENTION OF COMPLICATION TYPE II OR UNSPECIFIED TYPE UNCONTROLLED 04/09/2014 MADL OUTREACH REP, DION L 250.80 DIABETES WITH OTHER SPECIFIED MANIFESTATIONS TYPE II OR UNSPECIFIED TYPE NOT STATED UNCONTROLLED 04/09/2014 MADL OUTREACH REP, DION L 250.02 DIABETES MELLITUS WITHOUT MENTION OF COMPLICATION TYPE II OR UNSPECIFIED TYPE UNCONTROLLED 04/09/2014 MAD OUTREACH REP, DION L 250.80 DIABETES WITH OTHER SPECIFIED [...] V15.82 HISTORY OF TOBACCO USE 07/23/2014 MADL OUTREACH REP, DION L 686.8 OTHER SPECIFIED LOCAL INFECTIONS OF SKIN AND SUBCUTANEOUS TISSUE 07/23/2014 MADL OUTREACH REP, DION L 787.1 HEARTBURN 07/23/2014 GRANT LOCKETT DOA K 686.8 OTHER SPECIFIED LOCAL INFECTIONS OF SKIN AND SUBCUTANEOUS TISSUE 07/23/2014 SHANNA LOCKETT DO K 787.1 HEARTBURN 07/23/2014 MADL OUTREACH REP, DION L 686.8 OTHER SPECIFIED LOCAL INFECTIONS OF SKIN AND SUBCUTANEOUS TISSUE 07/23/2014 MADL OUTREACH REP, DION L 787.1 HEARTBURN 07/23/2014 MADL OUTREACH REP, DION L 686.8 OTHER SPECIFIED LOCAL INFECTIONS OF SKIN AND SUBCUTANEOUS TISSUE 07/23/2014 MADL OUTREACH REP, DION L 787.1 HEARTBURN 07/23/2014 MADL OUTREACH REP, DION L 686.8 OTHER SPECIFIED LOCAL INFECTIONS OF SKIN AND SUBCUTANEOUS TISSUE 07/23/2014 MADL OUTREACH REP, DION L 787.1 HEARTBURN 07/23/2014 MADL OUTREACH REP, DION L 686.8 OTHER SPECIFIED LOCAL INFECTIONS OF SKIN AND SUBCUTANEOUS TISSUE 07/23/2014 MADL OUTREACH REP, DION L 787.1 HEARTBURN 07/23/2014 MADL OUTREACH REP, DION L 686.8 OTHER SPECIFIED LOCAL INFECTIONS OF SKIN AND SUBCUTANEOUS TISSUE 07/23/2014 MADL OUTREACH REP, DION L 787.1 HEARTBURN 07/23/2014 MADL OUTREACH REP, DION L 686.8 OTHER SPECIFIED LOCAL INFECTIONS OF SKIN AND SUBCUTANEOUS TISSUE 07/23/2014 MADL OUTREACH REP, DION L 787.1 HEARTBURN 07/23/2014 MADL OUTREACH REP, DION L 686.8 OTHER SPECIFIED LOCAL INFECTIONS OF SKIN AND SUBCUTANEOUS TISSUE 07/23/2014 MADL OUTREACH REP, DION L 787.1 HEARTBURN 07/23/2014 MADL OUTREACH REP, DION L 686.8 OTHER SPECIFIED LOCAL INFECTIONS OF SKIN AND SUBCUTANEOUS TISSUE 07/23/2014 MADL OUTREACH REP, DION L 787.1 HEARTBURN 07/23/2014 MADL OUTREACH REP, DION L 686.8 OTHER SPECIFIED LOCAL INFECTIONS OF SKIN AND SUBCUTANEOUS TISSUE 07/23/2014 MADL OUTREACH REP, DION L 787.1 HEARTBURN 07/23/2014 LOCKETT DO, SHANNA K 686.8 OTHER SPECIFIED LOCAL INFECTIONS OF SKIN AND SUBCUTANEOUS TISSUE 07/23/2014 LOCKETT DO, SHANNA K 787.1 HEARTBURN 07/23/2014 CASTELLANO OUTREACH REP, BARRY R 686.8 OTHER SPECIFIED LOCAL INFECTIONS OF SKIN AND SUBCUTANEOUS TISSUE 07/23/2014 CASTELLANO KATEY BARRY R 787.1 HEARTBURN 07/23/2014 LOCKETT DO, SHANNA K 686.8 OTHER SPECIFIED LOCAL INFECTIONS OF SKIN AND SUBCUTANEOUS TISSUE 07/23/2014 LOCKETT DO, SHANNA K 787.1 HEARTBURN 08/02/2014 MADL OUTREACH REP, DION L 381.01 ACUTE SEROUS OTITIS MEDIA 08/02/2014 MADL OUTREACH REP, DION L 528.9 OTHER AND UNSPECIFIED DISEASES OF THE ORAL SOFT TISSUES 08/02/2014 MADL OUTREACH REP, DION L V04.81 FLU SHOT 08/02/2014 MADL OUTREACH REP, DION L 381.01 ACUTE SEROUS OTITIS MEDIA 08/02/2014 MADL OUTREACH REP, DION L 528.9 OTHER AND UNSPECIFIED DISEASES OF THE ORAL SOFT TISSUES 08/02/2014 MADL OUTREACH REP, DION L V04.81 FLU SHOT 08/02/2014 MADL OUTREACH REP, DION L 381.01 ACUTE SEROUS OTITIS MEDIA 08/02/2014 MADL OUTREACH REP, DION L 528.9 OTHER AND UNSPECIFIED DISEASES OF THE ORAL SOFT TISSUES 08/02/2014 MADL OUTREACH REP, DION L V04.81 FLU SHOT 08/02/2014 MADL OUTREACH REP, DION L 381.01 ACUTE SEROUS OTITIS MEDIA 08/02/2014 MADL OUTREACH REP, DION L 528.9 OTHER AND UNSPECIFIED DISEASES OF THE ORAL SOFT TISSUES 08/02/2014 MADL OUTREACH REP, DION L V04.81 FLU SHOT 08/02/2014 MADL OUTREACH REP, DION L 381.01 ACUTE SEROUS OTITIS MEDIA 08/02/2014 MADL OUTREACH REP, DION L 528.9 OTHER AND UNSPECIFIED DISEASES OF THE ORAL SOFT TISSUES 08/02/2014 MADL OUTREACH REP, DION L V04.81 FLU SHOT 08/02/2014 MADL OUTREACH REP, DION L 381.01 ACUTE SEROUS OTITIS MEDIA 08/02/2014 MADL OUTREACH REP, DION L 528.9 OTHER AND UNSPECIFIED DISEASES OF THE ORAL SOFT TISSUES 08/02/2014 MADL OUTREACH REP, DION L V04.81 FLU SHOT 08/02/2014 MADL OUTREACH REP, DION L 381.01 ACUTE SEROUS OTITIS MEDIA 08/02/2014 MADL OUTREACH REP, DION L 528.9 OTHER AND UNSPECIFIED DISEASES OF THE ORAL SOFT TISSUES 08/02/2014 MADL OUTREACH REP, DION L V04.81 FLU SHOT 08/02/2014 MADL OUTREACH REP, DION L 381.01 ACUTE SEROUS OTITIS MEDIA 08/02/2014 MADL OUTREACH REP, DION L 528.9 OTHER AND UNSPECIFIED DISEASES OF THE ORAL SOFT TISSUES 08/02/2014 BIRDIEL OUTREACH REP, DION L V04.81 FLU SHOT 08/02/2014 BIRDIEL OUTREACH REP, DION L 381.01 ACUTE SEROUS OTITIS MEDIA 08/02/2014 MADL OUTREACH REP, DION L 528.9 OTHER AND UNSPECIFIED DISEASES OF THE ORAL SOFT TISSUES 08/02/2014 MADL OUTREACH REP, DION L V04.81 FLU SHOT 08/02/2014 LOCKETT [...] LUIZA THOMPSON DO Ot 799.02 08/20/2014 MADL OUTREACH REP, DION L 786.52 PAINFUL RESPIRATION 08/20/2014 MADL OUTREACH REP, DION L 786.52 PAINFUL RESPIRATION 08/20/2014 MADL OUTREACH REP, DION L 786.52 PAINFUL RESPIRATION 08/20/2014 MADL OUTREACH REP, DION L 786.52 PAINFUL RESPIRATION 08/20/2014 MADL OUTREACH REP, DION L 786.52 PAINFUL RESPIRATION 08/20/2014 MADL OUTREACH REP, DION L 786.52 PAINFUL RESPIRATION 08/20/2014 MADL OUTREACH REP, DION L 786.52 PAINFUL RESPIRATION 08/20/2014 LOCKETT SHANNA CARRANZA K 786.52 PAINFUL RESPIRATION 08/20/2014 CASTELLANO OUTREACH REP, BARRY R 786.52 PAINFUL RESPIRATION 08/20/2014 LOCKETT DO, SHANNA K 786.52 PAINFUL RESPIRATION 09/05/2014 MADL OUTREACH REP, DION L 112.0 CANDIDIASIS OF MOUTH 09/05/2014 MADL OUTREACH REP, DION L 682.6 CELLULITIS AND ABSCESS OF LEG EXCEPT FOOT 09/05/2014 MADL OUTREACH REP, DION L 112.0 CANDIDIASIS OF MOUTH 09/05/2014 MADL OUTREACH REP, DION L 682.6 CELLULITIS AND ABSCESS OF LEG EXCEPT FOOT 09/05/2014 MADL OUTREACH REP, DION L 112.0 CANDIDIASIS OF MOUTH 09/05/2014 MADL OUTREACH REP, DION L 682.6 CELLULITIS AND ABSCESS OF LEG EXCEPT FOOT 09/05/2014 MADL OUTREACH REP, DION L 112.0 CANDIDIASIS OF MOUTH 09/05/2014 MADL OUTREACH REP, DION L 682.6 CELLULITIS AND ABSCESS OF LEG EXCEPT FOOT 09/05/2014 LOCKETT DO, SHANNA K 112.0 CANDIDIASIS OF MOUTH 09/05/2014 LOCKETT DO, SHANNA K 682.6 CELLULITIS AND ABSCESS OF LEG EXCEPT FOOT 09/05/2014 CASTELLANO OUTREACH REP, BARRY R 112.0 CANDIDIASIS OF MOUTH 09/05/2014 CASTELLANO OUTREACH REP, BARRY R 682.6 CELLULITIS AND ABSCESS OF LEG EXCEPT FOOT 09/05/2014 LOCKETT DO, SHANNA K 112.0 CANDIDIASIS OF MOUTH 09/05/2014 LOCKETT DO, SHANNA K 682.6 CELLULITIS AND ABSCESS OF LEG EXCEPT FOOT 09/19/2014 MADL OUTREACH REP, DION L 465.9 UPPER RESPIRATORY INFECTION 09/19/2014 MADL OUTREACH REP, DION L 788.1 DYSURIA 09/19/2014 MADL OUTREACH REP, DION L 465.9 UPPER RESPIRATORY INFECTION 09/19/2014 MADL OUTREACH REP, DION L 788.1 DYSURIA 09/19/2014 MADL OUTREACH REP, DION L 465.9 UPPER RESPIRATORY INFECTION 09/19/2014 MADL OUTREACH REP, DION L 788.1 DYSURIA 09/19/2014 LOCKETT DO, SHANNA K 465.9 UPPER RESPIRATORY INFECTION 09/19/2014 LOCKETT DO, SHANNA K 788.1 DYSURIA 09/19/2014 BARRY CASTELLANO APRN R 465.9 UPPER RESPIRATORY INFECTION 09/19/2014 CASTELLANO [place] R 788.1 DYSURIA 09/19/2014 LOCKETT DOGRANTA K 465.9 UPPER RESPIRATORY INFECTION 09/19/2014 LOCKETT DO, SHANNA K 788.1 DYSURIA 10/17/2014 MADL OUTREACH REPLAURE HaleA L 729.1 MYALGIA AND MYOSITIS UNSPECIFIED 10/17/2014 MADL OUTREACH REPLAURE HaleA L 729.1 MYALGIA AND MYOSITIS UNSPECIFIED [...] NORRIS, ALI FACP CCDS Ot Z79.899 OTHER INTERMEDIATE (CURRENT) DRUG THERAPY 08/27/2015 RENETTA NORRIS, ALI FACP CCDS Ot Z87.891 PERSONAL HISTORY OF NICOTINE DEPENDENCE 08/27/2015 RENETTA MOREIRA FACC, LINDY FACP CCDS Ot Z91.19 PATIENT'S NONCOMPLIANCE W [facility] 09/04/2015 SERENITY BARNES MD Ot [...] Moran Ot R11.10 11/05/2015 GELLENDER DO, TEMITOPE oMran Ot Z68.41 11/05/2015 GELLENDER DO, TEMITOPE Moran Ot Z99.81 11/06/2015 GELLENDER DO, TEMITOPE Moran Ot D72.829 ELEVATED WHITE BLOOD CELL COUNT, UNSPECI 11/06/2015 GELLENDER DO, TEMITOPE Mroan Ot E11.9 TYPE 2 DIABETES MELLITUS WITHOUT [...] 11/11/2015 JOHN KILPATRICK APRN Ot Z79.899 OTHER TOOL AND DIE REPAIRER (CURRENT) DRUG THERAPY 11/11/2015 JOHN KILPATRICK APRN [...] GARCIA DO Ot Z91.19 PATIENT'S NONCOMPLIANCE W [facility] 12/20/2015 JOSE CARRANZA TEMITOPE Moran Ot Z99.81 DEPENDENCE ON SUPPLEMENTAL OXYGEN 01/29/2016 MARGO CAMPOVERDE APRN Ot J30.9 ALLERGIC RHINITIS, UNSPECIFIED 01/29/2016 MARGO CAMPOVERDE APRN Ot J44.9 CHRONIC OBSTRUCTIVE PULMONARY DISEASE, U 01/29/2016 MARGO CAMPOVERDE APRN Ot R09.02 HYPOXEMIA 02/19/2016 JOHN KILPATRICK APRN Ot 491.21 OBSTR CHRONIC BRONCHITIS, W (ACUTE) EXAC 02/19/2016 JONH KILPATRICK APRN Ot 786.50 CHEST PAIN NOS [...] DEPENDENCE ON SUPPLEMENTAL OXYGEN 03/12/2016 MARGO CAMPOVERDE OUTREACH REP Ot J30.9 ALLERGIC RHINITIS, UNSPECIFIED 03/12/2016 NIRALIMARGO HICKS OUTREACH REP Ot J44.9 CHRONIC OBSTRUCTIVE PULMONARY DISEASE, U 03/12/2016 NIRALIMARGO HICKS OUTREACH REP Ot R09.02 HYPOXEMIA 03/19/2016 MARGO CAMPOVERDE OUTREACH REP Ot J30.9 ALLERGIC RHINITIS, UNSPECIFIED 03/19/2016 NIRALIMARGO HICKS OUTREACH REP Ot J44.9 CHRONIC OBSTRUCTIVE PULMONARY DISEASE, U [...] DEPENDENCE ON SUPPLEMENTAL OXYGEN 04/20/2016 JOHN KILPATRICK OUTREACH REP Ot 491.21 OBSTR CHRONIC BRONCHITIS, W (ACUTE) [...] Ot S46.901A UNSP INJ UNSP [facility]C/FASC/TEND AT [facility]/ 05/06/2016 JOHN KILPATRICK APRN Ot J44.9 CHRONIC [...] VERTEBRA, NEC, THORACIC REGION 05/12/2016 JOHN KILPATRICK OUTREACH REP Ot R51 HEADACHE 05/12/2016 JOHN KILPATRICK APRN [...] U 05/14/2016 JOHN KILPATRICK APRN Ot Z79.4 INTERMEDIATE (CURRENT) USE OF INSULIN 05/15/2016 DEVORAH PETERSON [...] U 05/18/2016 JOHN KILPATRICK APRN Ot Z79.4 TOOL AND DIE REPAIRER (CURRENT) USE OF INSULIN 05/21/2016 SERENITY BARNES [...] 06/17/2016 KJ DO, CHRISTELLE K Ot Z79.4 TOOL AND DIE REPAIRER (CURRENT) USE OF INSULIN 06/17/2016 KJ DO, CHRISTELLE K Ot Z79.899 OTHER INTERMEDIATE (CURRENT) DRUG THERAPY 06/17/2016 KJ DO, CHRISTELLE [...] 06/18/2016 KJ DO, CHRISTELLE K Ot Z79.4 INTERMEDIATE (CURRENT) USE OF INSULIN 06/18/2016 KJ DO, CHRISTELLE K Ot Z79.899 OTHER INTERMEDIATE (CURRENT) DRUG THERAPY 06/18/2016 KJ DO, CHRISTELLE [...] PAIN 08/17/2016 JOHN KILPATRICK APRN Ot Z79.4 INTERMEDIATE (CURRENT) USE OF INSULIN 08/17/2016 JOHN KILPATRICK APRN Ot Z79.84 TOOL AND DIE REPAIRER (CURRENT) USE OF ORAL HYPOGLYC 08/17/2016 JOHN KILPATRICK APRN Ot Z79.899 OTHER INTERMEDIATE (CURRENT) DRUG THERAPY 08/17/2016 JOHN KILPATRICK APRN [...] PAIN 08/18/2016 JOHN KILPATRICK APRN Ot Z79.4 TOOL AND DIE REPAIRER (CURRENT) USE OF INSULIN 08/18/2016 JOHN KILPATRICK APRN Ot Z79.84 INTERMEDIATE (CURRENT) USE OF ORAL HYPOGLYC 08/18/2016 JOHN KILPATRICK APRN Ot Z79.899 OTHER INTERMEDIATE (CURRENT) DRUG THERAPY 08/18/2016 JOHN KILPATRICK APRN [...] TEMITOPE Luisa Ot Z91.19 PATIENT'S NONCOMPLIANCE W [facility] 11/26/2016 ADA SOLIS MD Ot [...] ADULT 03/20/2017 MARIAH LAI MD Ot Z79.4 TOOL AND DIE REPAIRER (CURRENT) USE OF INSULIN 03/20/2017 MARIAH LAI MD Ot Z79.82 INTERMEDIATE (CURRENT) USE OF ASPIRIN 03/20/2017 MARIAH LAI MD Ot Z79.84 TOOL AND DIE REPAIRER (CURRENT) USE OF ORAL HYPOGLYC 03/20/2017 MARIAH [...] ADULT 03/23/2017 MARIAH LAI MD Ot Z79.4 TOOL AND DIE REPAIRER (CURRENT) USE OF INSULIN 03/23/2017 MARIAH LAI MD Ot Z79.82 INTERMEDIATE (CURRENT) USE OF ASPIRIN 03/23/2017 MARIAH LAI MD Ot Z79.84 TOOL AND DIE REPAIRER (CURRENT) USE OF ORAL HYPOGLYC 03/23/2017 MARIAH [...] CARRANZATEMITOPE Ot R09.81 NASAL CONGESTION 04/07/2017 JOSE CARRANZATEMITOEP Ot Z79.4 INTERMEDIATE (CURRENT) USE OF INSULIN 04/07/2017 JOSE CARRANZATEMITOPE Ot Z79.84 INTERMEDIATE (CURRENT) USE OF ORAL HYPOGLYC 04/07/2017 JOSE CARRANZATEMITOPE Ot Z79.899 OTHER TOOL AND DIE REPAIRER (CURRENT) DRUG THERAPY 04/07/2017 JOSE TEMITOPE CARRANZA [...] MAMMOGRAM FOR MALIGNANT NE 06/10/2017 VAL, WILLY DIESEL ENGINEER Ot E11.9 TYPE 2 DIABETES MELLITUS WITHOUT COMPLIC 06/10/2017 VAL, WILLY DIESEL ENGINEER Ot F32.9 MAJOR DEPRESSIVE DISORDER, SINGLE EPISOD 06/10/2017 VAL, WILLY DIESEL ENGINEER Ot F41.9 ANXIETY DISORDER, UNSPECIFIED 06/10/2017 VAL, WILLY DIESEL ENGINEER Ot J44.1 CHRONIC OBSTRUCTIVE PULMONARY DISEASE W 06/10/2017 VAL, WILLY DIESEL ENGINEER Ot R06.02 SHORTNESS OF BREATH 06/10/2017 VAL, WILLY DIESEL ENGINEER Ot Z79.4 TOOL AND DIE REPAIRER (CURRENT) USE OF INSULIN 06/10/2017 VAL, WILLY DIESEL ENGINEER Ot Z82.49 FAMILY HX OF ISCHEM HEART DIS AND OTH DI 06/10/2017 VAL, WILLY DIESEL ENGINEER Ot Z87.59 PERSONAL HISTORY OF COMP OF PREG, CHLDBR 06/10/2017 VAL, WILLY DIESEL ENGINEER Ot Z87.891 PERSONAL HISTORY OF NICOTINE DEPENDENCE 06/10/2017 VAL, WILLY DIESEL ENGINEER Ot Z98.51 TUBAL LIGATION STATUS 06/11/2017 TEMITOPE GARCIA DO Ot J44.9 CHRONIC OBSTRUCTIVE PULMONARY DISEASE, U 06/16/2017 VAL, WILLY DIESEL ENGINEER Ot E11.9 TYPE 2 DIABETES MELLITUS WITHOUT COMPLIC 06/16/2017 VAL, WILLY DIESEL ENGINEER Ot F32.9 MAJOR DEPRESSIVE DISORDER, SINGLE EPISOD 06/16/2017 VAL, WILLY DIESEL ENGINEER Ot F41.9 ANXIETY DISORDER, UNSPECIFIED 06/16/2017 VAL, WILLY DIESEL ENGINEER Ot J44.1 CHRONIC OBSTRUCTIVE PULMONARY DISEASE W 06/16/2017 VAL, WILLY DIESEL ENGINEER Ot R06.02 SHORTNESS OF BREATH 06/16/2017 VAL, WILLY DIESEL ENGINEER Ot Z79.4 INTERMEDIATE (CURRENT) USE OF INSULIN 06/16/2017 VAL, WILLY DIESEL ENGINEER Ot Z82.49 FAMILY HX OF ISCHEM HEART DIS AND OTH DI 06/16/2017 VAL, WILLY DIESEL ENGINEER Ot Z87.59 PERSONAL HISTORY OF COMP OF PREG, CHLDBR 06/16/2017 VAL, WILLY DIESEL ENGINEER Ot Z87.891 PERSONAL HISTORY OF NICOTINE DEPENDENCE 06/16/2017 VAL, WILLY DIESEL ENGINEER Ot Z98.51 TUBAL LIGATION STATUS 06/16/2017 VALDIVIA [...] BREATH 11/19/2017 MARIAH LAI MD Ot Z79.4 TOOL AND DIE REPAIRER (CURRENT) USE OF INSULIN 11/19/2017 MARIAH LAI MD Ot Z79.52 INTERMEDIATE (CURRENT) USE OF SYSTEMIC STER 11/19/2017 MARIAH [...] I10 ESSENTIAL (PRIMARY) HYPERTENSION 11/22/2017 MARIAH LAI MD, Ot J44.1 CHRONIC OBSTRUCTIVE PULMONARY DISEASE W 11/22/2017 MARIAH LAI MD Ot K21.9 GASTRO-ESOPHAGEAL REFLUX DISEASE WITHOUT 11/22/2017 MARIAH LAI MD Ot R06.02 SHORTNESS OF BREATH 11/22/2017 MARIAH LAI MD Ot Z79.4 TOOL AND DIE REPAIRER (CURRENT) USE OF INSULIN 11/22/2017 MARIAH LAI MD Ot Z79.52 TOOL AND DIE REPAIRER (CURRENT) USE OF SYSTEMIC STER 11/22/2017 MARIAH LAI MD, Ot Z87.01 PERSONAL HISTORY OF PNEUMONIA (RECURRENT 11/22/2017 MARIAH LAI MD Ot Z87.59 PERSONAL HISTORY OF COMP OF PREG, CHLDBR 11/22/2017 MARIAH LAI MD Ot Z87.891 PERSONAL HISTORY OF NICOTINE DEPENDENCE 11/22/2017 MARIAH LAI MD Ot Z88.5 ALLERGY STATUS TO NARCOTIC AGENT STATUS 11/22/2017 MARIAH LAI MD Ot Z98.51 TUBAL LIGATION STATUS 01/08/2018 WILLY NEAL DIESEL ENGINEER Ot E11.9 TYPE 2 DIABETES MELLITUS WITHOUT COMPLIC 01/08/2018 WILLY NEAL DIESEL ENGINEER Ot E66.9 OBESITY, UNSPECIFIED 01/08/2018 VAL WILLY DIESEL ENGINEER Ot H60.92 UNSPECIFIED OTITIS EXTERNA, LEFT EAR 01/08/2018 VAL WILLY DIESEL ENGINEER Ot H92.02 OTALGIA, LEFT EAR 01/08/2018 WILLY NEAL DIESEL ENGINEER Ot I10 ESSENTIAL (PRIMARY) HYPERTENSION 01/08/2018 VAL WILLY DIESEL ENGINEER Ot J32.9 CHRONIC SINUSITIS, UNSPECIFIED 01/08/2018 VAL WILLY DIESEL ENGINEER Ot J44.9 CHRONIC OBSTRUCTIVE PULMONARY DISEASE, U 01/08/2018 WILLY NEALP Ot K21.9 GASTRO-ESOPHAGEAL REFLUX DISEASE WITHOUT 01/08/2018 WILLY NEAL DIESEL ENGINEER Ot Z68.39 BODY MASS INDEX (BMI) 39.0-39.9, ADULT 01/08/2018 WILLY NEALP Ot Z79.4 INTERMEDIATE (CURRENT) USE OF INSULIN 01/08/2018 VAL, WILLY DIESEL ENGINEER Ot Z79.51 TOOL AND DIE REPAIRER (CURRENT) USE OF INHALED STERO 01/08/2018 WILLY NEAL DIESEL ENGINEER Ot Z79.52 TOOL AND DIE REPAIRER (CURRENT) USE OF SYSTEMIC STER 01/08/2018 WILLY NEAL DIESEL ENGINEER Ot Z87.01 PERSONAL HISTORY OF PNEUMONIA (RECURRENT 01/08/2018 WILLY NEAL DIESEL ENGINEER Ot Z87.09 PERSONAL HISTORY OF OTHER DISEASES OF TH 01/08/2018 WILLY NEALP Ot Z87.19 PERSONAL HISTORY OF OTHER DISEASES OF TH 01/08/2018 WILLY NEALP Ot Z87.59 PERSONAL HISTORY OF COMP OF PREG, CHLDBR 01/08/2018 WILLY NEAL DIESEL ENGINEER Ot Z87.81 PERSONAL HISTORY OF (HEALED) TRAUMATIC F 01/08/2018 WILLY NEAL DIESEL ENGINEER Ot Z87.891 PERSONAL HISTORY OF NICOTINE DEPENDENCE 01/08/2018 WILLY NEAL DIESEL ENGINEER Ot Z88.5 ALLERGY STATUS TO NARCOTIC AGENT STATUS 01/08/2018 WILLY NEAL DIESEL ENGINEER Ot Z98.51 TUBAL LIGATION STATUS 01/10/2018 WILLY NEAL DIESEL ENGINEER Ot E11.9 TYPE 2 DIABETES MELLITUS WITHOUT COMPLIC 01/10/2018 VAL WILLY DIESEL ENGINEER Ot E66.9 OBESITY, UNSPECIFIED 01/10/2018 VAL WILLY DIESEL ENGINEER Ot H60.92 UNSPECIFIED OTITIS EXTERNA, LEFT EAR 01/10/2018 VAL WILLY DIESEL ENGINEER Ot H92.02 OTALGIA, LEFT EAR 01/10/2018 VAL WILLY DIESEL ENGINEER Ot I10 ESSENTIAL (PRIMARY) HYPERTENSION 01/10/2018 VAL WILLY DIESEL ENGINEER Ot J32.9 CHRONIC SINUSITIS, UNSPECIFIED 01/10/2018 VAL WILLY DIESEL ENGINEER Ot J44.9 CHRONIC OBSTRUCTIVE PULMONARY DISEASE, U 01/10/2018 VAL WILLY DIESEL ENGINEER Ot K21.9 GASTRO-ESOPHAGEAL REFLUX DISEASE WITHOUT 01/10/2018 VAL WILLY DIESEL ENGINEER Ot Z68.39 BODY MASS INDEX (BMI) 39.0-39.9, ADULT 01/10/2018 WILLY NEAL DIESEL ENGINEER Ot Z79.4 INTERMEDIATE (CURRENT) USE OF INSULIN 01/10/2018 WILLY NEAL DIESEL ENGINEER Ot Z79.51 TOOL AND DIE REPAIRER (CURRENT) USE OF INHALED STERO 01/10/2018 VAL WILLY DIESEL ENGINEER Ot Z79.52 TOOL AND DIE REPAIRER (CURRENT) USE OF SYSTEMIC STER 01/10/2018 VALWILLY Sims Ot Z87.01 PERSONAL HISTORY OF PNEUMONIA (RECURRENT 01/10/2018 VALWILLY Sims Ot Z87.09 PERSONAL HISTORY OF OTHER DISEASES OF TH 01/10/2018 VALWILLY Sims Ot Z87.19 PERSONAL HISTORY OF OTHER DISEASES OF TH 01/10/2018 VALWILLY Sims Ot Z87.59 PERSONAL HISTORY OF COMP OF PREG, CHLDBR 01/10/2018 VALWILLY Sims Ot Z87.81 PERSONAL HISTORY OF (HEALED) TRAUMATIC F 01/10/2018 VALWILLY Sims Ot Z87.891 PERSONAL HISTORY OF NICOTINE DEPENDENCE 01/10/2018 VALWLILY Sims Ot Z88.5 ALLERGY STATUS TO NARCOTIC AGENT STATUS 01/10/2018 VALWILLY Sims Ot Z98.51 TUBAL LIGATION STATUS Procedures Code Description [place] [address] MAMMOGRAM, SCREENING 12/09/2011 94.68 02/02/2012 49350 PSYCH PHARM MGMT 08/25/2012 73634 OXIMETRY 10/26/2012 22655 PAP SMEAR 11/08/2012 57328 MEASURE BLOOD OXYGEN LEVEL 11/08/2012 Q0091 PAP SMEAR OBTAIN SMEAR 11/08/2012 59202 MEASURE BLOOD OXYGEN LEVEL 11/09/2012 75593 URINE TEST (IN- HOUSE) 12/05/2012 45970 UA W/ CULTURE IF INDICATED 12/05/2012 94942 COLP W/ ECC 2012 65772 US PELVIC COMPL (REFLEX CPT - 05046) 2012 46925 THERAPUTIC INJ SQ/IM 12/13/2012 J2930 SOLUMEDROL INJ 12/13/2012 OBSTE [facility], 12/15/2012 41747 ROUTINE VENIPUNCTURE 01/06/2013 23308 THERAPUTIC INJ SQ/IM 01/06/2013 25982 A1C (IN-HOUSE) 01/06/2013 26566 CBC 01/06/2013 87441 CMP 01/06/2013 [id number] GFR CALC (RESULT ONLY) 01/06/2013 39209 TSH 01/06/2013 68077 OXIMETRY 01/09/2013 62448 OXIMETRY 01/09/2013 J2930 SOLUMEDROL INJ 01/09/2013 35443 XRAY CHEST 2 VIEW 01/20/2013 56993 OXIMETRY 01/20/2013 55316 MEASURE BLOOD OXYGEN LEVEL 02/14/2013 62499 OXIMETRY 02/24/2013 23746 THERAPUTIC INJ SQ/IM 02/24/2013 J2930 SOLUMEDROL INJ 02/24/2013 43619 MEASURE BLOOD OXYGEN LEVEL 06/02/2013 J2930 SOLUMEDROL INJ 06/16/2013 47207 THERAPUTIC INJ SQ/IM 06/16/2013 05852 OXIMETRY 06/21/2013 97128 A1C (IN-HOUSE) 06/21/2013 78849 OXIMETRY 06/26/2013 G0008 FLU ADMINISTRATION ( MEDICARE ONLY) 07/18/2013 25417 THERAPUTIC INJ SQ/IM 09/06/2013 J2930 SOLUMEDROL INJ 09/06/2013 88826 MEASURE BLOOD OXYGEN LEVEL 09/07/2013 73396 OXIMETRY 10/05/2013 62545 OXIMETRY 10/24/2013 86381 A1C (IN-HOUSE) 11/16/2013 89466 BONE SCAN, LIMITED 11/16/2013 PODIATRY CONRADO FRAZIER 04/09/2014 12494 OXIMETRY 04/09/2014 77086 A1C (IN-HOUSE) 04/09/2014 96122 OXIMETRY 05/02/2014 12169 OXIMETRY 06/04/2014 50359 ROUTINE VENIPUNCTURE 07/17/2014 81784 CMP 07/17/2014 14039 CBC 07/17/2014 27344 OXIMETRY 07/17/2014 62418 AMERITOX 07/17/2014 79708 CULTURE WOUND (AEROBIC) 07/23/2014 21496 OXIMETRY 07/23/2014 36003 OXIMETRY 08/03/2014 G0008 FLU ADMINISTRATION ( MEDICARE ONLY) 08/03/2014 35787 OXIMETRY 08/10/2014 85294 XRAY CHEST 2 VIEW 08/20/2014 35196 MAMMOGRAM, SCREENING 08/20/2014 61834 SLEEP STUDY (HOSPITAL- SLEEP STUDY) 08/20/2014 59165 GLUCOSE FINGER STICK 09/19/2014 48131 UA W/ CULTURE IF INDICATED 09/19/2014 16609 ROUTINE VENIPUNCTURE 10/31/2014 7855674 GFR CALC (RESULT ONLY) 10/31/2014 84669 CMP 10/31/2014 22864 OXIMETRY 12/14/2014 38859 OXIMETRY 12/21/2014 [id number] 10/25/2015 Results Test Result Range Complete blood [...] Blood erythrocyte morphology finding identification NORMAL NRG Whole blood basic metabolic panel - 08/17/16 [...] smear finding identification by light microscopy YES [facility] Comprehensive metabolic panel - 11/12/16 04:19 [...] plasma albumin measurement (mass/volume) 3.5 g/dL 3.2-4.5 [id number] - 11/12/16 04:19 Serum or plasma acetaminophen [...] culture - 11/12/16 17:25 Bacterial urine culture [id number] NRG COLONY COUNT <10,000 NRG FTX;REPORTABLE SENSITIVITY [...] Blood erythrocyte morphology finding identification NORMAL NRG Comprehensive metabolic panel - 04/05/17 06:20 Serum [...] blood glucose measurement by glucometer (mass/volume) - 01/08/18 11: 27 Capillary blood glucose measurement by glucometer (mass/volume) 220 mg/dL 70-110 Complete blood count (CBC) with automated white blood cell (WBC) differential - 01/08/18 12:12 Blood leukocytes automated count (number/volume) 11.3 10*3/uL 4.3-11.0 Blood erythrocytes automated count (number/volume) 4.23 10*6/uL 4.35-5.85 Venous blood hemoglobin measurement (mass/volume) 10.3 g/dL 11.5-16.0 Blood hematocrit (volume fraction) 34 % 35-52 Automated erythrocyte mean corpuscular volume 81 [foz_us] 80-99 Automated erythrocyte mean corpuscular hemoglobin (mass per erythrocyte) 24 pg 25-34 Automated erythrocyte mean corpuscular hemoglobin concentration measurement ( mass/volume) 30 g/dL 32-36 Automated erythrocyte distribution width ratio 15.9 % 10.0-14.5 Automated blood platelet count (count/volume) 385 10*3/uL 130-400 Automated blood platelet mean volume measurement 9.5 [foz_us] 7.4-10.4 Automated blood neutrophils/100 leukocytes 88 % 42-75 Automated blood lymphocytes/100 leukocytes 8 % 12-44 Blood monocytes/100 leukocytes 3 % 0-12 Automated blood eosinophils/100 leukocytes 0 % 0-10 Automated blood basophils/100 leukocytes 0 % 0-10 Blood neutrophils automated count (number/volume) 10.0 10*3 1.8-7.8 Blood lymphocytes automated count (number/volume) 0.9 10*3 1.0-4.0 Blood monocytes automated count (number/volume) 0.4 10*3 0.0-1.0 Automated eosinophil count 0.0 10*3/uL 0.0-0.3 Automated blood basophil count (count/volume) 0.0 10*3/uL 0.0-0.1 Serum or plasma C reactive protein measurement (mass/volume) - 01/08/18 12:12 Serum or plasma C reactive protein measurement (mass/volume) 0.61 mg /dL 0.00-0.50 Blood manual differential performed detection - 01/08/18 12:12 Blood monocytes/100 leukocytes 3 % NRG Manual blood segmented neutrophils/100 leukocytes 88 % NRG Manual blood lymphocytes/100 leukocytes 9 % NRG Blood erythrocyte morphology finding identification NORMAL NR PT panel in platelet poor plasma by coagulation assay - 01/08/18 12:12 Prothrombin time (PT) in platelet poor plasma by coagulation assay 12.0 s 12.2-14.7 INR in platelet poor plasma or blood by coagulation assay 0.9 0.8-1.4 Activated partial thromboplastin time (aPTT) in platelet poor plasma bycoagulation assay - 01/08/18 12:12 Activated partial thromboplastin time (aPTT) in platelet poor plasma bycoagulation assay 23 s 24-35 Comprehensive metabolic panel - 01/08/18 12:12 Serum or plasma sodium measurement (moles/volume) 137 mmol/L 135-145 Serum or plasma potassium measurement (moles/volume) 4.7 mmol/L 3.6-5.0 Serum or plasma chloride measurement (moles/volume) 99 mmol/L 98-107 Carbon dioxide 27 mmol/L 21-32 Serum or plasma anion gap determination (moles/volume) 11 mmol/L 5-14 Serum or plasma urea nitrogen measurement (mass/volume) 15 mg/dL 7-18 Serum or plasma creatinine measurement (mass/volume) 0.75 mg/dL 0.60-1.30 Serum or plasma urea nitrogen/creatinine mass ratio 20 NRG Serum or plasma creatinine measurement with calculation of estimated glomerular filtration rate > NRG Serum or plasma glucose measurement (mass/volume) 245 mg/dL 70-105 Serum or plasma calcium measurement (mass/volume) 9.4 mg/dL 8.5-10.1 Serum or plasma total bilirubin measurement (mass/volume) 0.2 mg/dL 0.1-1.0 Serum or plasma alkaline phosphatase measurement (enzymatic activity/volume) 78 U/L 40-136 Serum or plasma aspartate aminotransferase measurement (enzymatic activity/ volume) 20 U/L 5-34 Serum or plasma alanine aminotransferase measurement (enzymatic activity/volume ) 23 U/L 0-55 Serum or plasma protein measurement (mass/volume) 6.9 g/dL 6.4-8.2 Serum or plasma albumin measurement (mass/volume) 4.1 g/dL 3.2-4.5 Magnesium - 01/08/18 12:12 Magnesium 2.2 mg/dL 1.8-2.4 Serum or plasma troponin i.cardiac measurement (mass/volume) - 01/08/18 12:12 Serum or plasma troponin i.cardiac measurement (mass/volume) < ng/ mL <0.30 Myoglobin, serum - 01/08/18 12:12 Myoglobin, serum 35.0 ng/mL 10.0-92.0 Serum or plasma lithium measurement (moles/volume) - 01/08/18 12:12 BNP level 22.9 pg/mL <100.0 Encounters ACCT No. Visit Date/Time Discharge Status Pt. Type Provider Facility Loc./Unit Complaint [id number] 12/21/2014 10:47:00 12/21/2014 23:59:59 CLS Outpatient SHANNA LOCKETT DO [id number] 12/14/2014 14:00:00 12/14/2014 23:59:59 CLS Outpatient CASTELLANO OUTREACH REPBARRY Kamaljit [id number] 11/22/2014 10:23:00 11/22/2014 23:59:59 CLS Outpatient SHANNA LOCKETT DO [id number] 10/31/2014 14:32:00 10/31/2014 23:59:59 CLS Outpatient MADL OUTREACH REP, DION L [id number] 10/17/2014 14:03:00 10/17/2014 23:59:59 CLS Outpatient MADL OUTREACH REP, DION L [id number] 09/19/2014 13:49:00 09/19/2014 23:59:59 CLS Outpatient MADL OUTREACH REP, DION L [id number] 09/05/2014 12:53:00 09/05/2014 23:59:59 CLS Outpatient MADL OUTREACH REP, DION L [id number] 08/20/2014 13:19:00 08/20/2014 23:59:59 CLS Outpatient MADL OUTREACH REP, DION L [id number] 08/20/2014 13:19:00 08/20/2014 23:59:59 CLS Outpatient MADL OUTREACH REP, DION L [id number] 08/10/2014 10:05:00 08/10/2014 23:59:59 CLS Outpatient MADL OUTREACH REP, DION L [id number] 08/10/2014 10:05:00 08/10/2014 23:59:59 CLS Outpatient MADL OUTREACH REP, DION L [id number] 08/02/2014 16:11:00 08/02/2014 23:59:59 CLS Outpatient MADL OUTREACH REP, DION L [id number] 07/30/2014 06:01:00 07/30/2014 23:59:59 CLS Outpatient LOCKETT DOSHANNA [id number] 07/23/2014 14:28:00 07/23/2014 23:59:59 CLS Outpatient MADL OUTREACH REPDION Hale L [id number] 07/17/2014 09:59:00 07/17/2014 23:59:59 CLS Outpatient MADL OUTREACH REPDION L [id number] 06/04/2014 10:20:00 06/04/2014 23:59:59 CLS Outpatient MADL DION DEL TORO L [id number] 05/22/2014 17:06:00 05/22/2014 23:59:59 CLS Outpatient LEVY CARRANZASHANNA [id number] 05/02/2014 13:31:00 05/02/2014 23:59:59 CLS Outpatient LEVY CARRANZASHANNA [id number] 04/09/2014 15:32:00 04/09/2014 23:59:59 CLS Outpatient LAURA BENNETT MD [id number] 04/09/2014 13:20:00 04/09/2014 23:59:59 CLS Outpatient DION SOTO APRN [id number] 04/09/2014 13:20:00 04/09/2014 23:59:59 CLS Outpatient DION SOTO APRN [id number] 12/28/2013 13:56:00 12/28/2013 23:59:59 CLS Outpatient ANNEL JJ APRN [id number] 12/26/2013 10:04:00 12/26/2013 23:59:59 CLS Outpatient MARTÍNEZ MARY APRN Alexia [id number] 11/16/2013 09:46:00 11/16/2013 23:59:59 CLS Outpatient MARTÍNEZ MARY APRN Alexia [id number] 11/07/2013 08:22:00 11/07/2013 23:59:59 CLS Outpatient LEVY CARRANZASHANNA [id number] 10/24/2013 12:14:00 10/24/2013 23:59:59 CLS Outpatient ELIZABETH ROBIN MD [id number] 10/19/2013 16:17:00 10/19/2013 23:59:59 CLS Outpatient LAURA BENNETT MD [id number] 10/05/2013 14:54:00 10/05/2013 23:59:59 CLS Outpatient LAURA BENNETT MD [id number] 09/07/2013 09:59:00 09/07/2013 23:59:59 CLS Outpatient CARLINE MARIO APRN [id number] 09/06/2013 13:04:00 09/06/2013 23:59:59 CLS Outpatient CARLINE MARIO APRN [id number] 07/18/2013 13:30:00 07/18/2013 23:59:59 CLS Outpatient SHANNA LOCKETT DO [id number] 06/21/2013 15:20:00 06/21/2013 23:59:59 CLS Outpatient BINDU PALM MD [id number] 06/21/2013 15:20:00 06/21/2013 23:59:59 CLS Outpatient BINDU PALM MD [id number] 06/16/2013 14:03:00 06/16/2013 23:59:59 CLS Outpatient BINDU PALM MD [id number] 06/16/2013 14:03:00 06/16/2013 23:59:59 CLS Outpatient BINDU PALM MD [id number] 12/13/2012 12:54:00 12/13/2012 23:59:59 CLS Outpatient BINDU PALM MD [id number] 12/05/2012 09:40:00 12/05/2012 23:59:59 CLS Outpatient [id number] 11/28/2012 10:23:00 11/28/2012 23:59:59 CLS Outpatient [id number] 11/07/2012 15:40:00 11/07/2012 23:59:59 CLS Outpatient LAURA BENNETT MD [id number] 10/26/2012 15:11:00 10/26/2012 23:59:59 CLS Outpatient SHANNA LOCKETT DO [id number] 10/26/2012 15:11:00 10/26/2012 23:59:59 CLS Outpatient SHANNA LOCKETT DO [id number] 09/24/2012 11:53:00 09/24/2012 23:59:59 CLS Outpatient ANNLE JJ APRN [id number] 08/25/2012 09:28:00 08/25/2012 23:59:59 CLS Outpatient DON POOL MD [id number] 08/19/2012 16:47:00 08/19/2012 23:59:59 CLS Outpatient [id number] 06/17/2012 11:19:00 06/17/2012 23:59:59 CLS Outpatient SABRINA MOREIRA, LAURA [id number] 06/02/2013 13:27:00 Document Registration [id number] 02/24/2013 16:15:00 Document Registration [id number] 02/24/2013 16:15:00 Document Registration [id number] 02/14/2013 15:36:00 Document Registration [id number] 02/14/2013 15:36:00 Document Registration [id number] 01/17/2013 08:31:00 Document Registration [id number] 01/06/2013 10:13:00 Document Registration [id number] 01/11/2018 14:40:00 01/11/2018 23:59:59 CLS Outpatient MADL OUTREACH [facility] [id number] 02/07/2018 13:00:00 02/07/2018 23:59:59 CLS Preadmit KRISTEN MOREIRA, DEVORAH Guerra [facility] PULM COPD [id number] 01/08/2018 10:59:00 01/08/2018 13:14:00 DIS Emergency WILLY NEAL Via [facility] ER EAR PAIN/CONGESTION/CHEST PAIN [id number] 12/21/2017 13:00:00 12/21/2017 23:59:59 CLS Preadmit TEMITOPE GARCIA DO Via [facility] PULM COPD [id number] 10/07/2017 12:54:00 12/20/2017 00:01:00 DIS Outpatient TEMITOPE GARCIA DO Via [facility] PULM COPD [id number] 11/19/2017 16:42:00 11/19/2017 21:58:00 DIS Emergency MING MOREIRA, MARIAH Prasad [facility] ER CHEST PAIN [id number] 08/31/2017 13:00:00 09/20/2017 00:01:00 DIS Outpatient TEMITOPE GARCIA DO Via [facility] PULM COPD [id number] 07/02/2017 11:29:00 07/02/2017 23:59:59 CLS Outpatient HARRIETT MOREIRA, FREEDOM Hidalgo [facility] RAD VENTRAL HERNIA K43.9 [id number] 06/08/2017 13:00:00 06/19/2017 00:01:00 DIS Outpatient TEMITOPE GARCIA DO Via [facility] PULM COPD [id number] 06/10/2017 13:20:00 06/10/2017 16:24:00 DIS Emergency WILLY NEAL [facility] ER SOA COUGHING UP BLOOD [id number] 06/08/2017 15:36:00 06/08/2017 23:59:59 CLS Outpatient DAR VALDIVIA DO Via [facility] RAD Z12.31 R10.2 [id number] 06/07/2017 11:03:00 06/07/2017 23:59:59 CLS Preadmit DAR VALDIVIA DO Via [facility] RAD CHRONIC FEMALE PELVIC PAIN [id number] 04/22/2017 13:00:00 05/09/2017 00:01:00 DIS Outpatient TEMITOPE GARCIA DO Via [facility] PULM COPD [id number] 04/13/2017 07:51:00 04/13/2017 23:59:59 CLS Outpatient DILLAN MOREIRA, Rocky MARTINEZ [facility] CARD CHEST PAIN [id number] 04/04/2017 15:05:00 04/07/2017 11:10:00 DIS Inpatient TEMITOPE GARCIA DO Via [facility] 4TH COPD EXACERBATION [id number] 03/20/2017 11:26:00 03/20/2017 15:05:00 DIS Emergency MING MOREIRA, MARIAH Prasad Via [facility] ER CP AND BACK PAIN [id number] 11/20/2016 13:19:00 11/20/2016 14:44:00 DIS Emergency WILL MORIERA, ADA Guerra [facility] ER POSS BITE ON RIGHT SIDE [id number] 11/11/2016 11:43:00 11/13/2016 12:15:00 DIS Inpatient TEMITOPE GARCIA DO Via [facility] 4TH ACUTE ON CHRONIC RESPIRATORY FAILURE COPD PNEUMONI [id number] 11/09/2016 09:19:00 11/09/2016 10:50:00 DIS Emergency CHRISTELLE UNDERWOOD DO Via [facility] ER RIGHT SIDE/LEFT LEG PAIN NAUSEA [id number] 08/25/2016 15:00:00 08/25/2016 23:59:59 CLS Preadmit MARGO CAMPOVERDE APRN Via [facility] PULM COPD,HYPOXIA [id number] 08/11/2016 13:00:00 08/24/2016 00:01:00 DIS Outpatient MARGO CAMPOVERDE APRN Via [facility] PULM COPD,HYPOXIA [id number] 08/17/2016 14:08:00 08/17/2016 16:38:00 DIS Emergency JOHN KILPATRICK APRN Via [facility] ER CHEST PAIN/SOA [id number] 06/17/2016 15:06:00 06/17/2016 15:28:00 DIS Emergency CHRISTELLE UNDERWOOD DO Via [facility] ER L SIDE EAR,FACIAL,AND TONGUE PAIN [id number] 05/14/2016 10:48:00 05/14/2016 11:06:00 DIS Emergency JOHN KILPATRICK APRN Via [facility] ER L EAR PAIN SWELLING [id number] 05/13/2016 12:47:00 05/13/2016 23:59:59 CLS Outpatient DEVORAH PETERSON MD Via [facility] RAD COPD ACUTE EXACERBATION [id number] 05/04/2016 16:45:00 05/04/2016 19:07:00 DIS Emergency JOHN KILPATRICK APRN Via [facility] ER CP,BACK PAIN [id number] 04/23/2016 13:00:00 04/26/2016 00:01:00 DIS Outpatient MARGO CAMPOVERDE APRN Via [facility] PULM COPD,HYPOXIA [id number] 03/29/2016 15:24:00 03/29/2016 17:45:00 DIS Emergency CHRISTELLE UNDERWOOD DO Via [facility] ER SOB [id number] 12/18/2015 09:50:00 12/20/2015 13:49:00 DIS Inpatient TEMITOPE GARCIA DO Via [facility] 4TH COPD UTI [id number] 12/16/2015 14:54:00 12/16/2015 17:10:00 DIS Outpatient MOLLY MOREIRA, SERENITY Fox [facility] ER BACK/CHEST PAIN SOA [id number] 11/29/2015 12:49:00 11/29/2015 15:35:00 DIS Emergency WILL MOREIRA, ADA Guerra [facility] ER CHEST PAIN/SOA [id number] 11/11/2015 17:41:00 11/11/2015 19:49:00 DIS Emergency JOHN KILPATRICK APRN Via [facility] ER SOA,ELEVATED BLOOD SUGAR [id number] 11/04/2015 12:27:00 11/06/2015 13:05:00 DIS Inpatient TEMITOPE GARCIA DO Via [facility] 4TH COPD POSSIBLE PNEUMONITIS [id number] 10/25/2015 20:26:00 10/30/2015 12:20:00 DIS Inpatient JOSE CARRANZA TEMITOPE Moran Via [facility] 4TH ATYPICAL PNEUMONIA, EXACERBATION COPD,H/O DIABETES [id number] 10/02/2015 15:30:00 10/07/2015 12:20:00 DIS Inpatient JOSE CARRANZA TEMITOPE Moran Via [facility] 4TH ACUTE ON CHRONIC RESPIRATORY FAILURE [id number] 09/17/2015 19:36:00 09/17/2015 21:19:00 DIS Emergency JOHN KILPATRICK APRN Via [facility] ER DIFFICULTY BREATHING [id number] 09/04/2015 16:49:00 09/04/2015 18:40:00 DIS Emergency MOLLY MOREIRA, SERENITY Fox Via [facility] ER CHEST PAIN, LOW OXYGEN [id number] 08/27/2015 06:50:00 08/27/2015 14:05:00 DIS Outpatient RENETTA MOREIRA FACC, LINDY COLLIER CCDS Via [facility] CATH OBESITY, CHEST DISCOMFORT, HYPOXIA [id number] 07/14/2015 21:22:00 07/16/2015 11:20:00 DIS Inpatient LAURA BENNETT MD Via [facility] 4TH AECOPD [id number] 07/07/2015 11:50:00 07/07/2015 14:40:00 DIS Emergency JOHN KILPATRICK APRN Via [facility] ER SOA [id number] 06/17/2015 09:01:00 06/17/2015 23:59:59 CLS Preadmit PJ MOREIRA, LETITIA Oliver [facility] WOUNDCARE [id number] 05/09/2015 12:22:00 05/09/2015 23:59:59 CLS Outpatient DAR VALDIVIA DO [facility] RAD AMENORRHEA [id number] 07/08/2014 13:38:00 07/09/2014 12:30:00 DIS Inpatient SHANNA LOCKETT DO Via [facility] CSD COPD ACUTE EXACERBATION DIARRHEA [id number] 04/29/2014 17:44:00 04/29/2014 21:42:00 DIS Emergency CARL PARKER [facility] ER SOA [id number] 03/27/2014 18:05:00 03/30/2014 13:12:00 DIS Inpatient SHANNA LOCKETT DO Via [facility] 4TH COPD EXACERBATION, HYPOXIA, ANXIETY [id number] 03/21/2014 00:27:00 03/22/2014 13:45:00 DIS Inpatient BINDU PALM MD Via [facility] 4TH SOA;CP [id number] 02/13/2014 11:33:00 02/13/2014 13:28:00 DIS Emergency KJ CHRISTELLE CARRANZA Via [facility] ER LOW O2 SATS [id number] 01/17/2014 14:56:00 01/17/2014 23:59:59 CLS Outpatient LUIZA THOMPSON DO Via [facility] RT COPD,HYPOXIA [id number] 11/14/2013 09:41:00 11/14/2013 23:59:59 CLS Outpatient LUIZA THOMPSON DO Via [facility] RAD COPD [id number] 10/24/2013 00:35:00 10/28/2013 14:55:00 DIS Inpatient LAURA BENNETT MD Via [facility] 4TH PNEUMONIA W/HYPOXIA;COPD EXACERBATION [id number] 10/05/2013 15:57:00 10/09/2013 17:10:00 DIS Inpatient LAURA BENNETT MD Via [facility] 4TH COPD [id number] 10/02/2013 12:12:00 10/02/2013 13:52:00 DIS Outpatient CHRISTELLE UNDERWOOD DO Via [facility] ER SOA [id number] 09/27/2013 14:12:00 09/29/2013 16:50:00 DIS Inpatient ELIZABETH ROBIN MD Via [address] COPD EXACERBATION [id number] 09/20/2013 16:55:00 09/20/2013 19:41:00 DIS Emergency JOHN KILPATRICK OUTREACH REP Via [facility] ER SOA [id number] 09/16/2013 17:04:00 09/16/2013 18:50:00 DIS Emergency JOHN KILPATRICK APRN Via [facility] ER SOA [id number] 06/28/2013 13:12:00 06/28/2013 23:59:59 CLS Outpatient DESTINY MOREIRA, NELSON A [facility] RAD COUGH,HYPOXEMIA,GOLDBERG [id number] 06/28/2013 11:30:00 06/28/2013 23:59:59 CLS Outpatient DESTINY MOREIRA, NELSON A Via [facility] RT CHRONIC AIRWAY OBSTRUCTION ,ACUTE BRONCHOSPASM [id number] 05/17/2013 00:25:00 05/17/2013 13:30:00 DIS Inpatient LOCKETT SHANNA [place] Via [address] COPD ACUTE EXACERBATION [id number] 05/15/2013 13:50:00 05/15/2013 16:17:00 DIS Outpatient JOHN KILPATRICK APRN Via [facility] ER CHEST PAIN/SOA [id number] 03/23/2013 16:44:00 03/23/2013 19:24:00 DIS Emergency NHI CHAVEZ MD Via [facility] ER CP [id number] 03/20/2013 13:59:00 03/20/2013 15:08:00 DIS Emergency KELLIE QUINTERO MD Via [facility] ER SOA [id number] 11/14/2014 16:43:00 Document Registration [id number] 10/30/2014 12:32:00 Document Registration [id number] 10/30/2014 12:31:00 Document Registration [id number] 10/30/2014 12:31:00 Document Registration [id number] 10/30/2014 12:31:00 Document Registration [id number] 10/30/2014 12:31:00 Document Registration [id number] 10/30/2014 12:31:00 Document Registration [id number] 10/30/2014 12:31:00 Document Registration [id number] 10/30/2014 12:31:00 Document Registration [id number] 10/30/2014 12:31:00 Document Registration [id number] 10/30/2014 12:31:00 Document Registration [id number] 08/08/2014 16:30:00 Document Registration [id number] 08/08/2014 16:30:00 Document Registration [id number] 08/08/2014 16:29:00 Document Registration [id number] 08/08/2014 16:29:00 Document Registration [id number] 08/08/2014 16:29:00 Document Registration [id number] 08/08/2014 16:29:00 Document Registration [id number] 08/08/2014 16:29:00 Document Registration [id number] 08/08/2014 16:29:00 Document Registration [id number] 08/08/2014 16:29:00 Document Registration [id number] 12/12/2012 14:09:00 Document Registration [id number] 11/04/2012 10:41:00 Document Registration [id number] 08/14/2012 01:40:00 Document Registration [id number] 07/29/2012 11:00:00 Document Registration [id number] 04/21/2012 11:51:00 Document Registration [id number] 03/24/2012 19:50:00 Document Registration [id number] 03/17/2012 08:00:00 Document Registration [id number] 02/02/2012 18:31:00 Document Registration [id number] 01/26/2012 13:00:00 Document Registration [id number] 11/11/2011 13:14:00 Document Registration [id number] 09/16/2011 05:15:00 Document Registration [id number] 04/13/2011 13:36:00 Document Registration [id number] 01/12/2011 15:44:00 Document Registration [id number] 08/29/2010 09:45:00 Document Registration [id number] 04/08/2010 20:05:00 Document Registration [id number] 03/18/2010 21:37:00 Document Registration [id number] 02/19/2010 12:26:00 Document Registration [id number] 11/14/2009 12:01:00 Document Registration [id number] 08/07/2009 09:18:00 Document Registration [id number] 02/05/2006 14:45:00 Document Registration [id number] 05/10/2015 05:00:24 ACT Document Registration
[2018-02-19] MEDS ORDERED: NS IV 1000 ML 1,000 ML IV SCH (12:06)
[2018-02-19] MEDS ORDERED: IOHEXOL 350 MG/ML 100 ML (OMNIPAQUE 350) VIAL IV ONE (12:15)
[2018-02-19] MEDS ORDERED: NS 100 ML (IVPB) BAG IV ONE (12:15)
[2018-02-19] MEDS ORDERED: KETOROLAC 30 MG/ML VIAL IVP ONE (12:15)
--- NOTE | 2018-02-19 12:15 | ED Abdominal Pain ---
General Chief Complaint: General Problems/Pain Stated Complaint: NOSE HURTING, HERNIA Source of Information: Patient, Family (mom and daughter) Exam Limitations: No Limitations History of Present Illness Date Seen by Provider: Feb 19, 2018 Time Seen by Provider: 12:05 Initial Comments Very pleasant young lady reports to the ER by private conveyance with a chief complaint that she is having now one day progressively worsening pain in her left abdomen around her ventricle hernia site. She's been told because of her diabetes she is too high risk to have a repair done unless it becomes emergent. She has a abdominal binder on order at the pharmacy she expected sometime next week. She had a bowel movement today that was normal and formed without any blood in it. She is not on any blood thinners. She's complaining of progressively worsening pain and feeling a knot that she cannot reduce over her abdomen. She also has on her left ala of her nose some warm, red, swelling, tender spot. She is oxygen dependent with nasal cannula. She does not smoke, quit 4 years ago. She has had cellulitis before and she thinks that this is consistent with a synovitis of her nose. Her last A1c was over 10. She is not having any fevers, chills, nausea or vomiting. Allergies and Home Medications Allergies Coded Allergies: codeine (Verified Allergy, Intermediate, hives, 05/14/16) Home Medications Albuterol Sulfate 8.5 Gm Hfa.aer.ad, 2 PUFF INH Q4H PRN for SHORTNESS OF BREATH, (Reported) Albuterol/Ipratropium 3 Ml Nebu, 3 ML NEB QID PRN for SHORTNESS OF BREATH, ( Reported) Alprazolam 0.5 Mg Tablet, 0.5 MG PO BID, (Reported) Arformoterol Tartrate 15 Mcg/2 Ml Vial.neb, 15 MCG NEB BID, (Reported) MIXES WITH BUDESONIDE Budesonide 0.5 Mg/2 Ml Ampul.neb, 0.5 MG NEB BID, (Reported) MIXES WITH BROVANA Cetirizine HCl 10 Mg Tablet, 10 MG PO DAILY, (Reported) Cholecalciferol (Vitamin D3) 1,000 Unit Tablet, 3,000 UNIT PO DAILY, (Reported) TAKES 3 (1,000 UNITS) TABLETS Empagliflozin 10 Mg Tablet, 10 MG PO DAILY, (Reported) Fluticasone Propionate 16 Gm [place].susp, 1 SPRAY NA BID PRN for ALLERGIES, ( Reported) Fluvoxamine Maleate 100 Mg Tablet, 150 MG PO BID, (Reported) TAKES 1 & 1/2 (100MG) TABLET Gabapentin 600 Mg Tablet, 600 MG PO TID, (Reported) Hydrochlorothiazide 25 Mg Tablet, 25 MG PO DAILY, (Reported) Hydroxyzine HCl 50 Mg Tablet, 50 MG PO TID, (Reported) Ibuprofen 800 Mg Tablet, 800 MG PO BID, (Reported) Insulin Aspart 300 Units/3 Ml Solution, SQ AC, (Reported) 60-200 = 0 201-250 = 3 251-300 = 5 301-350 = 7 351-400 = 0 >400 CALL Insulin Degludec 100 Unit/1 Ml Insuln.pen, 12-13 UNITS SC DAILY, (Reported) Ketorolac Tromethamine 10 Mg Tablet, 10 MG PO Q8H Prescribed by: WILLY NEAL on 01/08/18 1302 Lorazepam 1 Mg Tablet, 1 MG PO Q12H PRN for ANXIETY Prescribed by: MARIAH LAI on 11/19/172158 Metformin HCl 500 Mg Tablet, 1,000 MG PO BID, (Reported) TAKES 2 (500MG) TABLETS Mirtazapine 15 Mg Tablet, 15 MG PO HS, (Reported) Montelukast Sodium 10 Mg Tablet, 10 MG PO DAILY, (Reported) Omeprazole 20 Mg Capsule.dr, 20 MG PO DAILY, (Reported) Potassium Gluconate 99 Mg Tablet, 99 MG PO DAILY PRN for CRAMPS, (Reported) Prednisone 10 Mg Tab, 10 MG PO DAILY, (Reported) Prednisone 20 Mg Tab, 60 MG PO BID 3 tabs twice a day x3 days 2 tabs twice a day x3 days 1 tab twice a day x3 days 1 tab daily x3 days Resume your reg dose Prescribed by: MARIAH LAI on 11/19/172158 Roflumilast 500 Mcg Tablet, 500 MCG PO DAILY, (Reported) Rosuvastatin Calcium 20 Mg Tablet, 20 MG PO DAILY Prescribed by: TEMITOPE GARCIA on 04/07/17 0805 Tiotropium [place] 4 Gm Mist.inhal, 1 PUFF IH DAILY, (Reported) Trazodone HCl 100 Mg Tablet, 100 MG PO HS, (Reported) Patient Home Medication List Home Medication List Reviewed: Yes Review of Systems Constitutional: No chills, No diaphoresis EENTM: See HPI; No Blurred Vision, No Double Vision Respiratory: Denies Cough, Denies Shortness of Air Cardiovascular: Denies Chest Pain, Denies Edema Gastrointestinal: See HPI; Denies Abdomen Distended; Abdominal Pain; Denies Constipated, Denies Diarrhea, Denies Nausea, Denies Poor Fluid Intake, Denies Vomiting Genitourinary: Denies Burning, Denies Discharge Musculoskeletal: No back pain, No joint pain Skin: No pruritus, No rash Psychiatric/Neurological: Denies Anxiety, Denies Depressed Past [id number] Hx Patient Social History Alcohol Use: Denies Use Recreational Drug Use: No (smokes 2 PACKS A DAY) Type Used: Cigarettes Former Smoker, Quit: Apr 20, 2014 2nd Hand Smoke Exposure: No Recent Foreign Travel: No Contact w/Someone Who Travel: No Recent Hopitalizations: No ( X 2, ANXIETY ATTACK, DEPRESSION) Immunizations Up To Date Tetanus Booster (TDap): Unknown PED Vaccines UTD: No Date of Pneumonia Vaccine: May 24, 2012 Date of Influenza Vaccine: Sep 29, 2016 Seasonal Allergies Seasonal Allergies: No Past Medical History Surgeries: Yes (LEFT EYE--LASER REPAIR OF DETACHED RETINA) Section, Eye Surgery, Gallbladder, Tubal Ligation Respiratory: Yes (HOME O2-CHRONIC RESPIRATORY FAILURE, NO VENTILATOR--PER PT) Asthma, Pneumonia, Chronic Bronchitis, Sleep Apnea, COPD, Emphysema Currently Using CPAP: Yes Currently Using BIPAP: No Cardiac: Yes Hypertension Neurological: No Reproductive Disorders: No 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 Sexually Transmitted Disease: Yes (HERPES) HIV/AIDS: No Gastrointestinal: Yes Gastroesophageal Reflux, Gall Bladder Disease Musculoskeletal: Yes (SHOULDER PAIN ) Fibromyalgia, Fractures Endocrine: Yes (OBESITY) Diabetes, Insulin dep Loss of Vision: Denies Hearing Impairment: Denies Cancer: No Psychosocial: Yes Anxiety, Depression Integumentary: Yes (RASHES, abd folds and beneath her breast bilaterally red) Recent Skin Changes, Herpes Blood Disorders: No Adverse Reaction/Blood Tranf: No Family Medical History CHF grandmother Diabetes mellitus grandmother FH: CHF (congestive heart failure) History of - respiratory disease 03 FATHER (COPD) Physical Exam Vital Signs Vital Signs - First Documented 02/19/18 11:58 Temp 97.6 Pulse 100 Resp 18 B/P (MAP) 120/84 (96) Pulse Ox 95 O2 Delivery Nasal Cannula O2 Flow Rate 2.00 Capillary Refill : General Appearance: WD/WN, no apparent distress HEENT: PERRL/EOMI, TMs normal, pharynx normal, other (left ala with red, warm erythematous, firm nodule, tender to palpation without area of fluctuance or pore. ) Neck: non-tender, full range of motion, supple, normal inspection Respiratory: chest non-tender, no respiratory distress, no accessory muscle use Cardiovascular: normal peripheral pulses, regular rate, rhythm, no edema Peripheral Pulses: 2+ Radial Pulses (R), 2+ Radial Pulses (L) Gastrointestinal: normal bowel sounds, soft, no pulsatile mass, other (ventral hernia below the umbilicus with a firm, palpable cordlike, nonreducible nodule. ) Progress/Results/Core Measures Results/Orders Lab Results Laboratory Tests Test 02/19/18 12:21 02/19/18 13:48 Range/Units White Blood Count 21.9 H 4.3-11.0 10^3/uL Red Blood Count 4.46 4.35-5.85 10^6/uL Hemoglobin 11.5 11.5-16.0 G/DL Hematocrit 35 35-52 % Mean Corpuscular Volume 79 L 80-99 FL Mean Corpuscular Hemoglobin 26 25-34 PG Mean Corpuscular Hemoglobin Concent 33 32-36 G/DL Red Cell Distribution Width 17.8 H 10.0-14.5 % Platelet Count 429 H 130-400 10^3/uL Mean Platelet Volume 9.6 7.4-10.4 FL Neutrophils (%) (Auto) 88 H 42-75 % Lymphocytes (%) (Auto) 7 L 12-44 % Monocytes (%) (Auto) 4 0-12 % Eosinophils (%) (Auto) 1 0-10 % Basophils (%) (Auto) 0 0-10 % Neutrophils # (Auto) 19.2 H 1.8-7.8 X 10^3 Lymphocytes # (Auto) 1.6 1.0-4.0 X 10^3 Monocytes # (Auto) 0.9 0.0-1.0 X 10^3 Eosinophils # (Auto) 0.2 0.0-0.3 10^3/uL Basophils # (Auto) 0.0 0.0-0.1 10^3/uL Neutrophils % (Manual) 89 % Lymphocytes % (Manual) 6 % Monocytes % (Manual) 5 % Stomatocytes SLIGHT Sodium Level 138 135-145 MMOL/L Potassium Level 3.8 3.6-5.0 MMOL/L Chloride Level 102 98-107 MMOL/L Carbon Dioxide Level 22 21-32 MMOL/L Anion Gap 14 5-14 MMOL/L Blood Urea Nitrogen 12 7-18 MG/DL Creatinine 0.75 0.60-1.30 MG/DL Estimat Glomerular Filtration Rate > 60 BUN/Creatinine Ratio 16 Glucose Level 200 H 70-105 MG/DL Calcium Level 9.7 8.5-10.1 MG/DL Total Bilirubin 0.3 0.1-1.0 MG/DL Aspartate Amino Transf (AST/SGOT) 11 5-34 U/L Alanine Aminotransferase (ALT/SGPT) 15 0-55 U/L Alkaline Phosphatase 88 40-136 U/L Total Protein 7.4 6.4-8.2 GM/DL Albumin 4.4 3.2-4.5 GM/DL Urine Color YELLOW Urine Clarity CLEAR Urine pH 7 5-9 Urine Specific [place] 1.010 L 1.016-1.022 Urine Protein 1+ H NEGATIVE Urine Glucose (UA) 4+ H NEGATIVE Urine Ketones NEGATIVE NEGATIVE Urine Nitrite NEGATIVE NEGATIVE Urine Bilirubin NEGATIVE NEGATIVE Urine Urobilinogen NORMAL NORMAL MG/DL Urine Leukocyte Esterase NEGATIVE NEGATIVE Urine RBC (Auto) NEGATIVE NEGATIVE Urine RBC NONE /HPF Urine WBC 2-5 /HPF Urine Squamous Epithelial Cells 10-25 H /HPF Urine Crystals NONE /LPF Urine Bacteria TRACE /HPF Urine Casts NONE /LPF Urine Mucus NEGATIVE /LPF Urine Yeast FEW H /HPF Urine Culture Indicated YES My Orders Orders - MARIAH LAI Ct Abdomen/Pelvis W (02/19/18 12:06) Cbc With Automated Diff (02/19/18 12:06) Comprehensive Metabolic Panel (02/19/18 12:06) Saline Lock/Iv-Start (02/19/18 12:06) Ns Iv 1000 Ml (Sodium Chloride 0.9%) (02/19/18 12:06) Ketorolac Injection (Toradol Injection) (02/19/18 12:15) Iohexol Injection (Omnipaque 350 Mg/Ml 1 (02/19/18 12:15) Ns (Ivpb) (Sodium Chloride 0.9% Ivpb Bag (02/19/18 12:15) Manual Differential (02/19/18 12:21) Ua Culture If Indicated (02/19/18 13:41) Urine Culture (02/19/18 13:48) Medications Given in ED Current Medications Medications Dose Ordered Sig/Freder[place] Route Start Time Stop Time Status Last Admin Dose Admin Iohexol 100 ml ONCE ONCE IV 02/19/18 12:15 02/19/18 12:16 DC 02/19/18 13:20 100 ML Ketorolac Tromethamine 10 mg ONCE ONCE IVP 02/19/18 12:15 02/19/18 12:16 DC 02/19/18 12:26 10 MG Sodium Chloride 100 ml ONCE ONCE IV 02/19/18 12:15 02/19/18 12:16 DC 02/19/18 13:20 100 ML Vital Signs/I&O 02/19/18 11:58 Temp 97.6 Pulse 100 Resp 18 B/P (MAP) 120/84 (96) Pulse Ox 95 O2 Delivery Nasal Cannula O2 Flow Rate 2.00 Progress Progress Note : Progress Note At the site of the hernia are may be some early incarcerated abdominal tissue or intestine. A CT scan would be the quickest most judicious way to visualize this hernia site. We'll give her a liter fluids to help wash out the contrast and obtain some basic labs to make sure kidneys will tolerate the contrast. Plan to give Keflex to cover her mild nasal cellulitis given her history of uncontrolled diabetes and O2 cannula usage. Consults : Consulting Physician: DENISE MCCAIN DO Consults Notes Discussed case lab imaging findings with Dr. Mccain, General Surgery and he says he would be happy to see the patient if things don't get any worse on Wednesday in the clinic area Departure Impression Primary Impression: Cellulitis and abscess of face Additional Impression: Ventral hernia without obstruction or gangrene Disposition: 01 HOME, SELF-CARE Condition: Stable Departure-Patient Inst. Decision time for Depature: 14:12 Referrals: DENISE MCCAIN RICHARD A DO (PCP/Family) Primary Care Physician Patient Instructions: Cellulitis (Skin Infection), Adult (DC) Add. Discharge Instructions: Use hot compresses on her nose as needed for pain relief as well as Tylenol or Motrin. You can obtain the antibiotics and start taking one capsule of Keflex 4 times a day for the next week. Wednesday morning please call Dr. Mccain's office and [phone] and request an appointment for Wednesday. All discharge instructions reviewed with patient and/or family. Voiced understanding. Scripts Tramadol HCl (Tramadol HCl) 50 Mg Tablet 50 MG PO Q6H PRN for PAIN, #20 TAB 0 Refills Prov: MARIAH LAI 02/19/18 Cephalexin (Keflex) 500 Mg Capsule 500 MG PO QID for 7 Days, #28 CAP 0 Refills Prov: MARIAH LAI 02/19/18 Copy Copies To 1: DENISE MCCAIN DO; TEMITOPE GARCIA DO MARIAH LAI Feb 19, 2018 12:15
[2018-02-19 12:31] LABS: BASOPHILS % (AUTO) 0 % (0-10); EOSINOPHILS # (AUTO) 0.2 10^3/uL (0.0-0.3); EOSINOPHILS % (AUTO) 1 % (0-10); HEMATOCRIT 35 % (35-52); HEMOGLOBIN 11.5 G/DL (11.5-16.0); LYMPHOCYTES # (AUTO) 1.6 X 10^3 (1.0-4.0); LYMPHOCYTES % (AUTO) 7 % (12-44); MEAN CORPUSCULAR HEMOGLOBIN 26 PG (25-34); MEAN CORPUSCULAR HGB CONC 33 G/DL (32-36); MEAN CORPUSCULAR VOLUME 79 FL (80-99); MEAN PLATELET VOLUME 9.6 FL (7.4-10.4); MONOCYTES # (AUTO) 0.9 X 10^3 (0.0-1.0); MONOCYTES % (AUTO) 4 % (0-12); NEUTROPHILS # (AUTO) 19.2 X 10^3 (1.8-7.8); NEUTROPHILS % (AUTO) 88 % (42-75); PLATELET COUNT 429 10^3/uL (130-400); RED BLOOD COUNT 4.46 10^6/uL (4.35-5.85); RED CELL DISTRIBUTION WIDTH 17.8 % (10.0-14.5); WHITE BLOOD COUNT 21.9 10^3/uL (4.3-11.0)
[2018-02-19 12:51] LABS: ALANINE AMINOTRANSFERASE 15 U/L (0-55); ALBUMIN 4.4 GM/DL (3.2-4.5); ALKALINE PHOSPHATASE 88 U/L (40-136); BILIRUBIN,TOTAL 0.3 MG/DL (0.1-1.0); BUN/CREATININE RATIO 16; CALCIUM 9.7 MG/DL (8.5-10.1); CARBON DIOXIDE 22 MMOL/L (21-32); CHLORIDE 102 MMOL/L (98-107); CREATININE SERUM 0.75 MG/DL (0.60-1.30); GFR ESTIMATED > 60; GLUCOSE 200 MG/DL (70-105); POTASSIUM 3.8 MMOL/L (3.6-5.0); SODIUM 138 MMOL/L (135-145); TOTAL PROTEIN 7.4 GM/DL (6.4-8.2)
[2018-02-19 12:59] LABS: LYMPHOCYTES % (MANUAL) 6 %; MONOCYTES % (MANUAL) 5 %; NEUTROPHILS % (MANUAL) 89 %; STOMATOCYTES SLIGHT
[2018-02-19 13:56] LABS: BILIRUBIN,URINE NEGATIVE (NEGATIVE); CLARITY,URINE CLEAR; COLOR,URINE YELLOW; GLUCOSE, URINE (UA) 4+ (NEGATIVE); KETONES,URINE NEGATIVE (NEGATIVE); LEUKOCYTE ESTERASE ,URINE NEGATIVE (NEGATIVE); NITRITE,URINE NEGATIVE (NEGATIVE); PH,URINE 7 (5-9); PROTEIN,URINE 1+ (NEGATIVE); UROBILINOGEN,URINE NORMAL (NORMAL)
--- NOTE | 2018-02-19 14:02 | Diagnostic Imaging Report ---
PROCEDURE: CT abdomen and pelvis with contrast. TECHNIQUE: Multiple contiguous axial images were obtained through the abdomen and pelvis after administration of intravenous contrast. INDICATION: Abdominal pain. COMPARISON: 07/02/2017 and 11/05/2015. FINDINGS: The visualized lung bases are clear. Diffusely decreased density of the liver, consistent with fatty infiltration of liver. No focal hepatic mass. Cholecystectomy. The spleen is unremarkable. The adrenal glands are unremarkable. The pancreas is unremarkable. Tiny hypodensity within the right kidney is too small to completely characterize, though not significantly changed from the prior examination. 2 mm nonobstructing calculus within the inferior pole of the right kidney. The right ureter is unremarkable. A couple of 2 mm nonobstructing calculi are seen within the inferior pole of the left kidney. Otherwise, the left kidney and left ureter are unremarkable. No aneurysmal dilatation of abdominal aorta. Fat-containing supraumbilical midline anterior abdominal wall hernia is again identified, appearing stable from the prior examination. A periumbilical hernia is also identified extending to the left. This contains fat. Near the neck at approximately 1 cm with the sac measuring up to 6.2 x 4.9 cm. No fat stranding within the hernia sac. The urinary bladder is unremarkable. Pessary is in place. Otherwise, the uterus and adnexal structures are unremarkable. No evidence of acute appendicitis. Mild colonic diverticulosis without CT evidence of diverticulitis. No bowel obstruction or pneumatosis. No significant adenopathy, free air, or free fluid within abdomen or pelvis. No acute osseous abnormality. IMPRESSION: 1. Small bilateral nonobstructing renal calculi. 2. Fat-containing anterior abdominal wall hernias. 3. Fatty infiltration of liver. 4. Additional findings as above. Dictated by: Dictated on workstation # [id number]
[2018-02-19 14:06] LABS: BACTERIA,URINE TRACE /HPF; YEAST,URINE FEW /HPF
[2018-02-19] MEDS ORDERED: CEPH-507 PO (14:17)
[2018-02-19] MEDS ORDERED: TRAM50TA2 PO (14:17)
[2018-02-19 14:25] VITALS: BP 114/76
== END 2018-02-19 14:32 | disposition home or self-care (01) ==
LOC: EDUNIT# 10:56 → ER 10:58
DX: K12.2 Cellulitis and abscess of mouth (principal); K43.6 Other and unspecified ventral hernia with obstruction, without gangrene; E11.9 Type 2 diabetes mellitus without complications; F41.0 Panic disorder [episodic paroxysmal anxiety]; F32.9 Major depressive disorder, single episode, unspecified; I10 Essential (primary) hypertension; K21.9 Gastro-esophageal reflux disease without esophagitis; G47.30 Sleep apnea, unspecified; J43.9 Emphysema, unspecified; E66.9 Obesity, unspecified; F41.9 Anxiety disorder, unspecified; F17.210 Nicotine dependence, cigarettes, uncomplicated; Z88.5 Allergy status to narcotic agent; Z79.51 Long term (current) use of inhaled steroids; Z87.01 Personal history of pneumonia (recurrent); Z87.59 Personal history of other complications of pregnancy, childbirth and the puerperium; Z82.49 Family history of ischemic heart disease and other diseases of the circulatory system; Z86.19 Personal history of other infectious and parasitic diseases; Z87.19 Personal history of other diseases of the digestive system; Z98.51 Tubal ligation status; Z79.4 Long term (current) use of insulin; Z79.52 Long term (current) use of systemic steroids
CPT/HCPCS: 36415; 74177; 80053; 81000; 85007; 85027; 87088; 96374

== ENCOUNTER 2018-05-24 13:00 | Outpatient (RCR) | payer MEDICARE, MEDICAID ==
[2018-05-10 13:00] VITALS: BP 120/50
[2018-05-10 14:00] VITALS: BP 115/50
[2018-05-12 13:10] VITALS: BP 120/60
[2018-05-12 14:00] VITALS: BP 120/80
[2018-05-17 13:00] VITALS: BP 130/50
[2018-05-17 13:56] VITALS: BP 120/68
[2018-05-19 13:00] VITALS: BP 130/70
[2018-05-19 13:40] VITALS: BP 160/60
[2018-05-24 13:00] VITALS: BP 130/70
[~2018-05-24 13:00] MED LIST changes: +CEPH-507 PO; +METF-397 PO; -METF500T5 PO; -OXYC-197 PO; +OXYC1TAB87 PO; -ROSU10TA26 PO; +ROSU10TA27 PO; +TRAM50TA2 PO; +TRAZ-190 PO; -TRAZ100T92 PO
[2018-05-24 13:55] VITALS: BP 140/60
[2018-05-26 13:00] VITALS: BP 145/50
[2018-05-26 14:00] VITALS: BP 120/60
[2018-05-31 13:00] VITALS: BP 120/80
[2018-05-31 14:00] VITALS: BP 120/80
[2018-06-02 13:00] VITALS: BP 119/77
[2018-06-02 14:00] VITALS: BP 120/50
[2018-06-07 13:00] VITALS: BP 129/78
[2018-06-07 14:00] VITALS: BP 124/60
[2018-06-14 13:00] VITALS: BP 123/60
[2018-06-16 13:10] VITALS: BP 145/68
[2018-06-16 13:55] VITALS: BP 118/60
[2018-06-21 13:00] VITALS: BP 140/60
[2018-06-21 14:00] VITALS: BP 114/54
== END 2018-06-20 | disposition home or self-care (01) ==
LOC: PULM 13:00
PROVIDERS: ATTEND Internal Medicine Critical Care Medicine
DX: J44.1 Chronic obstructive pulmonary disease with (acute) exacerbation (principal)
CPT/HCPCS: 99211

== ENCOUNTER 2018-06-28 08:00 | Outpatient (RCR) | payer MEDICARE, MEDICAID ==
[2018-06-28 13:00] VITALS: BP 98/60
[2018-06-28 14:00] VITALS: BP 120/60
[2018-06-30 13:00] VITALS: BP 116/78
[2018-06-30 14:00] VITALS: BP 115/75
[2018-07-05 13:00] VITALS: BP 141/70
[2018-07-05 14:00] VITALS: BP 115/60
[2018-07-07 13:00] VITALS: BP 110/70
[2018-07-07 14:00] VITALS: BP 110/70
[2018-07-14 13:00] VITALS: BP 130/60
[2018-07-14 14:00] VITALS: BP 118/76
[2018-07-19 13:00] VITALS: BP 125/60
[2018-07-19 14:00] VITALS: BP 122/80
[2018-08-04 13:00] VITALS: BP 128/62
[2018-08-04 14:05] VITALS: BP 132/75
[2018-08-09 13:00] VITALS: BP 130/60
[2018-08-09 13:56] VITALS: BP 150/60
[2018-08-16 13:00] VITALS: BP 120/60
[2018-08-16 14:00] VITALS: BP 142/50
[2018-08-18 13:00] VITALS: BP 130/80
[2018-08-18 14:00] VITALS: BP 140/80
[2018-08-25 13:00] VITALS: BP 130/50
[2018-09-27 13:00] VITALS: BP 115/50
[2018-09-27 13:48] VITALS: BP 130/60
== END 2018-09-26 | disposition home or self-care (01) ==
LOC: PULM 08:00
PROVIDERS: ATTEND Internal Medicine Critical Care Medicine
DX: J44.1 Chronic obstructive pulmonary disease with (acute) exacerbation (principal)

== ENCOUNTER → 2018-08-03 | Outpatient (CLI) | payer MEDICARE, MEDICAID ==
--- NOTE | 2018-08-04 09:05 | Diagnostic Imaging Report ---
INDICATION: Routine screening. COMPARISON: 06/08/2017 and 12/09/2011. TECHNIQUE: 2D and 3D bilateral screening mammography was performed with CAD. FINDINGS: Both breasts are primarily involutional. No mass or malignant appearing microcalcifications are seen. The axillae are unremarkable. IMPRESSION: No mammographic features suspicious for malignancy are identified. ACR BI-RADS Category 1: Negative. Result letter will be mailed to the patient. Note: At least 10% of breast cancer is not imaged by mammography. Dictated by: Dictated on workstation # [id number]
== END ==
LOC: RAD 14:09
PROVIDERS: ATTEND Obstetrics & Gynecology
DX: Z12.31 Encounter for screening mammogram for malignant neoplasm of breast (principal)
CPT/HCPCS: 77067

== ENCOUNTER 2018-10-13 13:54 | Outpatient (RCR) | payer MEDICAID, MEDICARE ==
[2018-10-13 13:00] VITALS: BP 132/80
[2018-10-13 13:53] VITALS: BP 108/78
[~2018-10-13 13:54] MED LIST changes: -GABA600T2 PO; +GBPN600T PO; -ROFL500T4 PO; -ROSU20TA PO; +ROSU20TA2 PO
[2018-10-18 13:00] VITALS: BP 110/78
[2018-10-18 14:00] VITALS: BP 130/82
[2018-11-01 13:00] VITALS: BP 110/76
[2018-11-01 14:00] VITALS: BP 130/60
[2018-11-08 13:10] VITALS: BP 120/60
[2018-11-08 13:50] VITALS: BP 115/58
[2018-11-08 14:00] VITALS: BP 120/60
[2018-11-10 13:00] VITALS: BP 112/82
[2018-11-10 14:00] VITALS: BP 100/76
[2018-11-15 13:00] VITALS: BP 140/74
[2018-11-15 14:00] VITALS: BP 150/60
== END 2019-01-11 | disposition home or self-care (01) ==
LOC: PULM 13:54
PROVIDERS: ATTEND Internal Medicine Critical Care Medicine
DX: J44.1 Chronic obstructive pulmonary disease with (acute) exacerbation (principal)

== ENCOUNTER → 2019-01-25 | Outpatient (CLI) | payer MEDICAID, MEDICARE ==
--- NOTE | 2019-01-25 16:51 | Diagnostic Imaging Report ---
EXAMINATION: PA and lateral chest at 04:24 p.m. INDICATION: Chest pain. FINDINGS: The heart size is within normal limits and stable when compared to 01/08/2018. In the interval since the prior study, a band of atelectasis/infiltrate has developed in the left lung base near the left heart border. This may be related to mild pneumonia/atelectasis. The lungs are otherwise clear. There is no pleural effusion identified. The mediastinum is not widened. The osseous structures are intact. IMPRESSION: The appearance of the chest has worsened since the prior study as mild atelectasis/infiltrate has developed in the left lung base. There is no acute cardiopulmonary abnormality noted otherwise. Dictated by: Dictated on workstation # [id number]
== END ==
LOC: RAD 16:00
PROVIDERS: ATTEND Family Medicine
DX: J44.9 Chronic obstructive pulmonary disease, unspecified (principal); Z98.890 Other specified postprocedural states
CPT/HCPCS: 71046

== ENCOUNTER → 2019-02-01 | Outpatient (CLI) | payer MEDICAID, MEDICARE ==
--- NOTE | 2019-02-01 15:55 | Diagnostic Imaging Report ---
INDICATION: Pneumonia. TIME OF EXAM: 3:02 p.m. COMPARISON: Correlation is made with prior study of 01/25/2019. FINDINGS: There has been improved aeration in the left base since prior study. No infiltrate or atelectasis is seen. There is no effusion or pneumothorax. Pulmonary vascularity is normal. The heart size is normal. IMPRESSION: Improved aeration to the left base when compared to examination from one week earlier. Dictated by: Dictated on workstation # [id number]
== END ==
LOC: RAD 14:52
PROVIDERS: ATTEND Family Medicine
DX: J18.9 Pneumonia, unspecified organism (principal); J44.9 Chronic obstructive pulmonary disease, unspecified
CPT/HCPCS: 71046

== ENCOUNTER 2019-03-13 10:29 | Outpatient (RCR) | payer MEDICARE, MEDICAID ==
[~2019-03-13 10:29] MED LIST changes: -OMEP20CA12 PO; +OMEP20CA13 PO; -ROSU10TA27 PO; +ROSU10TA28 PO
== END 2019-06-11 | disposition home or self-care (01) ==
LOC: PULM 10:29
PROVIDERS: ATTEND Family Medicine
DX: J44.9 Chronic obstructive pulmonary disease, unspecified (principal)
CPT/HCPCS: 99211

== ENCOUNTER → 2020-04-25 | Outpatient (CLI) | payer MEDICARE, MEDICAID ==
[~2020-04-25] MED LIST changes: +FLUO20CA46 PO; +MONT10TA26 PO; +OFLO5DRO33 LEFT EAR; -OFLO5DRO7 LEFT EAR; -OMEP20CA13 PO; +OMEP20CA18 PO; -TRAM50TA2 PO; -TRAZ-190 PO; +TRAZ-227 PO; +TRM50T PO
--- NOTE | 2020-04-25 10:30 | Diagnostic Imaging Report ---
INDICATION: Shortness of breath and hemoptysis. Time of exam: 10:22 AM Correlation is made with prior chest from 02/01/2019. The heart size is normal. There appear to be some chronic markings in the lung bases bilaterally, similar to examination from January 2019. Mid and upper lung [place] are clear. No effusion or pneumothorax is detected. IMPRESSION: Stable chest. No acute feature is detected. Dictated by: Dictated on workstation # [id number]
== END ==
LOC: RAD 09:58
PROVIDERS: ATTEND Family Medicine
DX: R04.2 Hemoptysis (principal); R06.02 Shortness of breath
CPT/HCPCS: 71046

== ENCOUNTER 2020-08-05 10:03 | Emergency (ER) | payer MEDICARE, MEDICAID ==
[~2020-08-05] VITALS: Ht 152.4 cm; Wt 113.6 kg
[~2020-08-05 10:03] MED LIST changes: -ALPR0.254 PO
--- NOTE | 2020-08-05 10:09 | NUR ---
TO BATHROOM VODIED 300CC
--- NOTE | 2020-08-05 10:14 | ED General ---
General Stated Complaint: SOB FEET SWELLING CHEST PAIN History of Present Illness Date Seen by Provider: Aug 05, 2020 Time Seen by Provider: 10:12 Initial Comments 49-year-old female presents with shortness of breath. Patient reports that she's had some increasing shortness of breath for the last couple days. Last night she noticed both her feet were swollen. Patient does report that she is on a water pill and doubled him up yesterday due to the increased feet swelling. She denies any known congestive heart failure. Patient is also a known COPD patient denies any increasing cough. She reports her dyspnea gets worse with exertion. She is normally on 4-5 L home oxygen. Patient reports she quit smoking approximately 6 years ago. She reports she's felt warm but has not had any known fever. She has no nausea vomiting diarrhea or other illness type symptoms. She has some mild epigastric discomfort but no "chest pain" Allergies and Home Medications Allergies Coded Allergies: codeine (Verified Allergy, Intermediate, hives, 05/14/16) Home Medications Albuterol Sulfate 8.5 Gm Hfa.aer.ad, 2 PUFF INH Q4H PRN for SHORTNESS OF BREATH, (Reported) Albuterol/Ipratropium 3 Ml Nebu, 3 ML NEB QID PRN for SHORTNESS OF BREATH, (Reported) Alprazolam 0.5 Mg Tablet, 0.5 MG PO BID, (Reported) Arformoterol Tartrate 15 Mcg/2 Ml Vial.neb, 15 MCG NEB BID, (Reported) MIXES WITH BUDESONIDE Azithromycin 250 Mg Tablet, 250 MG PO UD TAKE 2 TABLETS ON DAY ONE THEN TAKE 1 TABLET DAILY FOR FOUR MORE DAYS Prescribed by: MIRTA HOUSE on 08/05/20 1226 Budesonide 0.5 Mg/2 Ml Ampul.neb, 0.5 MG NEB BID, (Reported) MIXES WITH BROVANA Cephalexin 500 Mg Capsule, 500 MG PO QID Prescribed by: MARIAH LAI on 02/19/18 1417 Cetirizine HCl 10 Mg Tablet, 10 MG PO DAILY, (Reported) Cholecalciferol (Vitamin D3) 1,000 Unit Tablet, 3,000 UNIT PO DAILY, (Reported) TAKES 3 (1,000 UNITS) TABLETS Empagliflozin 10 Mg Tablet, 10 MG PO DAILY, (Reported) Fluticasone Propionate 16 Gm [place].susp, 1 SPRAY NA BID PRN for ALLERGIES, (Reported) Fluvoxamine Maleate 100 Mg Tablet, 150 MG PO BID, (Reported) TAKES 1 & 1/2 (100MG) TABLET Gabapentin 600 Mg Tablet, 600 MG PO TID, (Reported) Hydrochlorothiazide 25 Mg Tablet, 25 MG PO DAILY, (Reported) Hydroxyzine HCl 50 Mg Tablet, 50 MG PO TID, (Reported) Ibuprofen 800 Mg Tablet, 800 MG PO BID, (Reported) Insulin Aspart 300 Units/3 Ml Solution, SQ AC, (Reported) 60-200 = 0 201-250 = 3 251-300 = 5 301-350 = 7 351-400 = 0 >400 CALL Insulin Degludec 100 Unit/1 Ml Insuln.pen, 12-13 UNITS SC DAILY, (Reported) Ketorolac Tromethamine 10 Mg Tablet, 10 MG PO Q8H Prescribed by: WILLY NEAL on 01/08/18 1302 Lorazepam 1 Mg Tablet, 1 MG PO Q12H PRN for ANXIETY Prescribed by: MARIAH LAI on 11/19/172158 Metformin HCl 500 Mg Tablet, 1,000 MG PO BID, (Reported) TAKES 2 (500MG) TABLETS Mirtazapine 15 Mg Tablet, 15 MG PO HS, (Reported) Montelukast Sodium 10 Mg Tablet, 10 MG PO DAILY, (Reported) Omeprazole 20 Mg Capsule.dr, 20 MG PO DAILY, (Reported) Potassium Gluconate 99 Mg Tablet, 99 MG PO DAILY PRN for CRAMPS, (Reported) Prednisone 10 Mg Tab, 10 MG PO DAILY, (Reported) Prednisone 20 Mg Tab, 60 MG PO BID 3 tabs twice a day x3 days 2 tabs twice a day x3 days 1 tab twice a day x3 days 1 tab daily x3 days Resume your reg dose Prescribed by: MARIAH LAI on 11/19/172158 Prednisone 20 Mg Tab, 40 MG PO DAILY Prescribed by: MIRTA HOUSE on 08/05/20 1226 Roflumilast 500 Mcg Tablet, 500 MCG PO DAILY, (Reported) Rosuvastatin Calcium 20 Mg Tablet, 20 MG PO DAILY Prescribed by: TEMITOPE GARCIA on 04/07/17 0805 Tiotropium [place] 4 Gm Mist.inhal, 1 PUFF IH DAILY, (Reported) Tramadol HCl 50 Mg Tablet, 50 MG PO Q6H PRN for PAIN Prescribed by: MARIAH LAI on 02/19/18 1417 Trazodone HCl 100 Mg Tablet, 100 MG PO HS, (Reported) Patient Home Medication List Home Medication List Reviewed: Yes Review of Systems Review of Systems Constitutional: see HPI; No dizziness, No fever EENTM: no symptoms reported Respiratory: dyspnea on exertion, short of breath; No wheezing Cardiovascular: see HPI, edema, palpitations Gastrointestinal: no symptoms reported; No abdominal pain, No constipation, No nausea, No vomiting Musculoskeletal: no symptoms reported Skin: no symptoms reported Psychiatric/Neurological: No Symptoms Reported Hematologic/Lymphatic: No Symptoms Reported Past Vqhroaf-Ufuvsu-Seicev Hx Past Med/Social Hx: Reviewed Nursing Past Med/Soc Hx Patient Social History Type Used: Cigarettes Former Smoker, Quit: Apr 20, 2014 2nd Hand Smoke Exposure: No Recent Foreign Travel: No Contact w/Someone Who Travel: No Recent Hopitalizations: No ( X 2, ANXIETY ATTACK, DEPRESSION) Immunizations Up To Date Tetanus Booster (TDap): Unknown PED Vaccines UTD: No Date of Pneumonia Vaccine: May 24, 2012 Date of Influenza Vaccine: Sep 29, 2016 Seasonal Allergies Seasonal Allergies: No Past Medical History Surgeries: Yes (LEFT EYE--LASER REPAIR OF DETACHED RETINA) Section, Eye Surgery, Gallbladder, Tubal Ligation Respiratory: Yes (HOME O2-CHRONIC RESPIRATORY FAILURE, NO VENTILATOR--PER PT) Asthma, Pneumonia, Chronic Bronchitis, Sleep Apnea, COPD, Emphysema Currently Using CPAP: Yes Currently Using BIPAP: No Cardiac: Yes Hypertension Neurological: No Reproductive Disorders: No 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 Disorders: 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 Sexually Transmitted Disease: Yes (HERPES) HIV/AIDS: No Gastrointestinal: Yes Gastroesophageal Reflux, Gall Bladder Disease Musculoskeletal: Yes (SHOULDER PAIN ) Fibromyalgia, Fractures Endocrine: Yes (OBESITY) Diabetes, Insulin dep Loss of Vision: Denies Hearing Impairment: Denies Cancer: No Psychosocial: Yes Anxiety, Depression Integumentary: Yes (RASHES, abd folds and beneath her breast bilaterally red) Recent Skin Changes, Herpes Blood Disorders: No Adverse Reaction/Blood Tranf: No Family Medical History CHF grandmother Diabetes mellitus grandmother FH: CHF (congestive heart failure) History of - respiratory disease 03 FATHER (COPD) Physical Exam Vital Signs Vital Signs - First Documented 08/05/20 10:09 Temp 37.1 Pulse 120 Resp 18 B/P (MAP) 116/70 (85) Pulse Ox 95 O2 Delivery Nasal Cannula O2 Flow Rate 6.00 Capillary Refill : Height, Weight, BMI Height: 5'5.00" Weight: 227lbs. 0.4oz. 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 Norm as Tested Skin: Normal Color, Warm/Dry Progress/Results/Core Measures Suspected Sepsis SIRS Temperature: Pulse: Respiratory Rate: Laboratory Tests 08/05/20 10:27: White Blood Count 16.9H Blood Pressure / Mean: Laboratory Tests 08/05/20 10:27: Creatinine 0.81, Platelet Count 396, Total Bilirubin 0.2 Results/Orders Lab Results Laboratory Tests Test 08/05/20 10:27 Range/Units White Blood Count 16.9 H 4.3-11.0 10^3/uL Red Blood Count 3.44 L 3.80-5.11 10^6/uL Hemoglobin 9.6 L 11.5-16.0 g/dL Hematocrit 33 L 35-52 % Mean Corpuscular Volume 96 80-99 fL Mean Corpuscular Hemoglobin 28 25-34 pg Mean Corpuscular Hemoglobin Concent 29 L 32-36 g/dL Red Cell Distribution Width 16.6 H 10.0-14.5 % Platelet Count 396 130-400 10^3/uL Mean Platelet Volume 10.1 9.0-12.2 fL Immature Granulocyte % (Auto) 1 % Neutrophils (%) (Auto) 87 H 42-75 % Lymphocytes (%) (Auto) 9 L 12-44 % Monocytes (%) (Auto) 4 0-12 % Eosinophils (%) (Auto) 0 0-10 % Basophils (%) (Auto) 0 0-10 % Neutrophils # (Auto) 14.7 H 1.8-7.8 10^3/uL Lymphocytes # (Auto) 1.5 1.0-4.0 10^3/uL Monocytes # (Auto) 0.7 0.0-1.0 10^3/uL Eosinophils # (Auto) 0.0 0.0-0.3 10^3/uL Basophils # (Auto) 0.0 0.0-0.1 10^3/uL Immature Granulocyte # (Auto) 0.1 0.0-0.1 10^3/uL Neutrophils % (Manual) 82 % Lymphocytes % (Manual) 11 % Monocytes % (Manual) 7 % Polychromasia SLIGHT Hypochromasia SLIGHT Basophilic Stippling SLIGHT Stomatocytes MODERATE D-Dimer 0.42 0.00-0.49 UG/ML Sodium Level 141 135-145 MMOL/L Potassium Level 4.0 3.6-5.0 MMOL/L Chloride Level 98 98-107 MMOL/L Carbon Dioxide Level 29 21-32 MMOL/L Anion Gap 14 5-14 MMOL/L Blood Urea Nitrogen 13 7-18 MG/DL Creatinine 0.81 0.60-1.30 MG/DL Estimat Glomerular Filtration Rate > 60 BUN/Creatinine Ratio 16 Glucose Level 146 H 70-105 MG/DL Calcium Level 8.5 8.5-10.1 MG/DL Corrected Calcium 8.4 L 8.5-10.1 MG/DL Magnesium Level 2.1 1.6-2.4 MG/DL Total Bilirubin 0.2 0.1-1.0 MG/DL Aspartate Amino Transf (AST/SGOT) 17 5-34 U/L Alanine Aminotransferase (ALT/SGPT) 14 0-55 U/L Alkaline Phosphatase 72 40-136 U/L Troponin I < 0.028 <0.028 NG/ML C-Reactive Protein High Sensitivity 0.39 0.00-0.50 MG/DL B-Type Natriuretic Peptide 38.6 <100.0 PG/ML Total Protein 6.8 6.4-8.2 GM/DL Albumin 4.1 3.2-4.5 GM/DL My Orders Orders - HOUSE,MIRTA L DO Cbc With Automated Diff (08/05/20 10:21) Comprehensive Metabolic Panel (08/05/20 10:21) BNP (08/05/20 10:21) Hs C Reactive Protein (08/05/20 10:21) Magnesium (08/05/20 10:21) Ekg Tracing (08/05/20 10:21) O2 (08/05/20 10:21) Ed Iv/Invasive Line Start (08/05/20 10:21) Monitor-Rhythm Ecg Trace Only (08/05/20 10:21) Chest Pa/Lat (2 View) (08/05/20 10:21) Albuterol/Ipra Inhalation Soln (Duoneb I (08/05/20 10:30) Svn Small Volume Nebulizer (08/05/20 10:21) Manual Differential (08/05/20 10:27) Troponin I (08/05/20 11:49) Ed Iv/Invasive Line Start (08/05/20 11:52) Fibrin Degradation Products (08/05/20 11:52) Ed Iv/Invasive Line Start (08/05/20 11:54) Ns Iv 500 Ml (Sodium Chloride 0.9%) (08/05/20 11:54) Methylprednisolone Sod Succ (Solu-Medrol (08/05/20 12:19) Coronavirus Sars-Cov-2 So 2018 (08/05/20 12:23) Medications Given in ED Current Medications Medications Dose Ordered Sig/[place] Route Start Time Stop Time Status Last Admin Dose Admin Albuterol/ Ipratropium 3 ml ONCE ONCE INH 08/05/20 10:30 08/05/20 10:31 DC 08/05/20 10:40 3 ML Sodium Chloride 500 ml @ 0 mls/hr Q0M ONCE IV 08/05/20 11:54 08/05/20 11:55 DC 08/05/20 12:00 500 MLS/HR Vital Signs/I&O 08/05/20 08/05/20 08/05/20 08/05/20 10:09 10:09 10:40 12:57 Temp 37.1 Pulse 120 104 Resp 18 18 B/P (MAP) 116/70 (85) 131/100 Pulse Ox 95 97 98 O2 Delivery Nasal Cannula Nasal Cannula Room Air O2 Flow Rate 6.00 3.00 Capillary Refill : Progress Note : Time: 12:24 Progress Note Patient's oxygen saturation remained in the mid to upper 90s on 3-4 L of oxygen. Patient is normally on 4-5 L of oxygen at home. Patient with a negative x-ray, negative EKG, negative troponin, BNP, d-dimer. She does have a slight elevation in white count. I suspect that she is having a minor COPD exacerbation. Patient is extremely anxious which is likely the cause of her mild tachycardia. I will discharge her on prednisone and azithromycin. We will do a send out COVID test due to the prevalence of COVID at this time. Patient stable and discharged home ECG Initial ECG Impression Date: Aug 05, 2020 Initial ECG Impression Time: 10:26 Initial ECG Rate: 111 Initial ECG Rhythm: S.Tach Initial ECG Intervals: Normal Comment hr 111, sinus tach, no acute changes Departure Impression Primary Impression: Acute exacerbation of chronic obstructive airways disease Disposition: HOME, SELF-CARE Condition: Stable Departure-Patient Inst. Referrals: TEMITOPE GARCIA DO (PCP/Family) Primary Care Physician Patient Instructions: Chronic Obstructive Pulmonary Disease (COPD), Including Emphysema Add. Discharge Instructions: Follow-up with your primary care provider in 2-3 days for recheck in today symptoms and continuation of care Scripts Prednisone (Prednisone) 20 Mg Tab 40 MG PO DAILY, #6 TAB 0 Refills Prov: MIRTA HOUSE DO 08/05/20 Azithromycin (Azithromycin) 250 Mg Tablet 250 MG PO UD, #6 TAB TAKE 2 TABLETS ON DAY ONE THEN TAKE 1 TABLET DAILY FOR FOUR MORE DAYS Prov: MIRTA HOUSE DO 08/05/20 MIRTA HOUSE DO Aug 05, 2020 10:14
[2020-08-05] MEDS ORDERED: RT-ALBUTEROL/IPRATROPIUM 3 ML (DUONEB) VIAL INH ONE (10:30)
[2020-08-05 10:36] LABS: BASOPHILS % (AUTO) 0 % (0-10); EOSINOPHILS % (AUTO) 0 % (0-10); HEMATOCRIT 33 % (35-52); HEMOGLOBIN 9.6 g/dL (11.5-16.0); LYMPHOCYTES # (AUTO) 1.5 10^3/uL (1.0-4.0); LYMPHOCYTES % (AUTO) 9 % (12-44); MEAN CORPUSCULAR HEMOGLOBIN 28 pg (25-34); MEAN CORPUSCULAR HGB CONC 29 g/dL (32-36); MEAN CORPUSCULAR VOLUME 96 fL (80-99); MEAN PLATELET VOLUME 10.1 fL (9.0-12.2); MONOCYTES # (AUTO) 0.7 10^3/uL (0.0-1.0); MONOCYTES % (AUTO) 4 % (0-12); NEUTROPHILS # (AUTO) 14.7 10^3/uL (1.8-7.8); NEUTROPHILS % (AUTO) 87 % (42-75); PLATELET COUNT 396 10^3/uL (130-400); WHITE BLOOD COUNT 16.9 10^3/uL (4.3-11.0)
[2020-08-05 10:50] LABS: ALBUMIN 4.1 GM/DL (3.2-4.5); CHLORIDE 98 MMOL/L (98-107); SODIUM 141 MMOL/L (135-145)
[2020-08-05 10:51] LABS: CALCIUM 8.5 MG/DL (8.5-10.1)
[2020-08-05 10:52] LABS: GLUCOSE 146 MG/DL (70-105)
[2020-08-05 10:53] LABS: TOTAL PROTEIN 6.8 GM/DL (6.4-8.2)
[2020-08-05 10:54] LABS: BILIRUBIN,TOTAL 0.2 MG/DL (0.1-1.0); CARBON DIOXIDE 29 MMOL/L (21-32)
[2020-08-05 10:56] LABS: ALKALINE PHOSPHATASE 72 U/L (40-136); CREATININE SERUM 0.81 MG/DL (0.60-1.30); GFR ESTIMATED > 60
[2020-08-05 10:57] LABS: BUN/CREATININE RATIO 16
[2020-08-05 10:59] LABS: ALANINE AMINOTRANSFERASE 14 U/L (0-55); MAGNESIUM 2.1 MG/DL (1.6-2.4)
[2020-08-05 11:29] LABS: HYPOCHROMASIA SLIGHT; LYMPHOCYTES % (MANUAL) 11 %; MONOCYTES % (MANUAL) 7 %; NEUTROPHILS % (MANUAL) 82 %; POLYCHROMASIA SLIGHT; STOMATOCYTES MODERATE
[2020-08-05] MEDS ORDERED: NS IV 500 ML 500 ML IV ONE (11:54)
--- NOTE | 2020-08-05 11:57 | Diagnostic Imaging Report ---
INDICATION: Increasing shortness of air and leg swelling. TIME OF EXAM: 11:38 AM Correlation is made with prior chest from 04/25/2020. FINDINGS: The heart size is normal. The pulmonary vascularity is unremarkable. The lungs are clear. No infiltrate, effusion or pneumothorax is detected. Chronic bibasilar changes appear to be stable. IMPRESSION: No acute cardiopulmonary process is detected. Dictated by: Dictated on workstation # [id number]
[2020-08-05] MEDS ORDERED: methylPREDNISolone 125 MG (Solu-MEDROL) VIAL IV STA (12:19)
[2020-08-05] MEDS ORDERED: PRD20T PO (12:26)
[2020-08-05] MEDS ORDERED: AZIT250T12 PO (12:26)
--- NOTE | 2020-08-05 12:51 | NUR ---
COVID SWAB NOT DONE ORDER NOT SEEN TILL AFTER DISCHARGE ALONG WITH SOLU MEDROL.
--- NOTE | 2020-08-05 12:55 | NUR ---
Aditi rubi in ED - 08/05/20 at 1259 by PMCCLURE COVID SWAB NOT DONE WAS NOT AWARE TILL AFTER DISCHARGE SOLU MEDROL NOT GIVEN.
[2020-08-05 12:57] VITALS: BP 131/100
== END 2020-08-05 12:51 | disposition home or self-care (01) ==
LOC: EDUNIT# 10:03 → ER 10:05
DX: J44.1 Chronic obstructive pulmonary disease with (acute) exacerbation (principal); F41.9 Anxiety disorder, unspecified; E66.9 Obesity, unspecified; K21.9 Gastro-esophageal reflux disease without esophagitis; I10 Essential (primary) hypertension; F32.9 Major depressive disorder, single episode, unspecified; E11.9 Type 2 diabetes mellitus without complications; Z68.42 Body mass index [BMI] 45.0-49.9, adult; Z83.3 Family history of diabetes mellitus; Z82.49 Family history of ischemic heart disease and other diseases of the circulatory system; Z88.5 Allergy status to narcotic agent; Z87.891 Personal history of nicotine dependence; Z79.4 Long term (current) use of insulin; Z79.52 Long term (current) use of systemic steroids
CPT/HCPCS: 36415; 71046; 80053; 83735; 83880; 84484; 85007; 85027; 85379; 86141; 93041; 94640

== ENCOUNTER → 2020-08-22 | Outpatient (CLI) | payer MEDICARE, MEDICAID ==
[~2020-08-22] MED LIST changes: +BARIUM for suspension 96% w/w (Vanilla Silq Medium Density) PO ONE; +BARIUM for suspension 98% w/w (Vanilla Silq High Density) PO ONE; -MONT10TA26 PO; +MONT10TA97 PO
--- NOTE | 2020-08-22 10:31 | Diagnostic Imaging Report ---
EXAMINATION: Upper gastrointestinal exam INDICATION: Preop lap band There are no prior studies available for comparison. The preliminary film was unremarkable. A double contrast study was performed. The patient swallowed the contrast without difficulty. There was no delay obstruction past the contrast through the esophagus. The cricopharyngeus muscle did seem prominent. There was a very small sliding hiatal hernia but there is no sign of reflux or esophagitis. Stomach shows good distensibility and motility. There is no mass or ulceration identified. The duodenal bulb and proximal small bowel are unremarkable. Impression: 1. There is no evidence for obstruction of the esophagus. There is a small sliding hiatal hernia without evidence for reflux or esophagitis. 2. There is no gastric mass or ulceration identified. 3. The duodenal bulb and proximal small bowel were unremarkable. Dictated by: Dictated on workstation # [id number]
== END ==
LOC: RAD 09:15
PROVIDERS: ATTEND Surgery
DX: Z01.818 Encounter for other preprocedural examination (principal); K44.9 Diaphragmatic hernia without obstruction or gangrene; E66.01 Morbid (severe) obesity due to excess calories; Z68.42 Body mass index [BMI] 45.0-49.9, adult
CPT/HCPCS: 74246

== ENCOUNTER → 2020-08-26 | Outpatient (CLI) | payer MEDICARE, MEDICAID ==
[~2020-08-26] MED LIST changes: -BARIUM for suspension 96% w/w (Vanilla Silq Medium Density) PO ONE; -BARIUM for suspension 98% w/w (Vanilla Silq High Density) PO ONE
[2020-08-26 11:25] LABS: BASOPHILS % (AUTO) 0 % (0-10); EOSINOPHILS % (AUTO) 0 % (0-10); HEMATOCRIT 34 % (35-52); HEMOGLOBIN 9.7 g/dL (11.5-16.0); LYMPHOCYTES % (AUTO) 7 % (12-44); MEAN CORPUSCULAR HEMOGLOBIN 28 pg (25-34); MEAN CORPUSCULAR HGB CONC 29 g/dL (32-36); MEAN CORPUSCULAR VOLUME 97 fL (80-99); MEAN PLATELET VOLUME 10.1 fL (9.0-12.2); MONOCYTES # (AUTO) 0.4 10^3/uL (0.0-1.0); MONOCYTES % (AUTO) 3 % (0-12); NEUTROPHILS # (AUTO) 14.1 10^3/uL (1.8-7.8); NEUTROPHILS % (AUTO) 90 % (42-75); PLATELET COUNT 298 10^3/uL (130-400); WHITE BLOOD COUNT 15.6 10^3/uL (4.3-11.0)
[2020-08-26 11:36] LABS: ANISOCYTOSIS SLIGHT; BAND NEUTROPHILS 1 %; HYPOCHROMASIA SLIGHT; LYMPHOCYTES % (MANUAL) 7 %; MONOCYTES % (MANUAL) 2 %; NEUTROPHILS % (MANUAL) 90 %
[2020-08-26 11:37] LABS: BILIRUBIN,URINE NEGATIVE (NEGATIVE); CLARITY,URINE CLEAR; COLOR,URINE YELLOW; GLUCOSE, URINE (UA) 3+ (NEGATIVE); KETONES,URINE NEGATIVE (NEGATIVE); LEUKOCYTE ESTERASE ,URINE NEGATIVE (NEGATIVE); NITRITE,URINE NEGATIVE (NEGATIVE); PH,URINE 5.5 (5-9); PROTEIN,URINE 1+ (NEGATIVE)
[2020-08-26 11:46] LABS: ERYTHROCYTE SEDIMENTATION RATE 38 MM/HR (0-20)
[2020-08-26 11:47] LABS: ALANINE AMINOTRANSFERASE 23 U/L (0-55); ALBUMIN 4.2 GM/DL (3.2-4.5); ALKALINE PHOSPHATASE 75 U/L (40-136); BILIRUBIN,TOTAL 0.2 MG/DL (0.1-1.0); BUN/CREATININE RATIO 11; CALCIUM 8.6 MG/DL (8.5-10.1); CARBON DIOXIDE 28 MMOL/L (21-32); CHLORIDE 102 MMOL/L (98-107); CREATININE SERUM 0.87 MG/DL (0.60-1.30); GFR ESTIMATED > 60; GLUCOSE 182 MG/DL (70-105); POTASSIUM 4.5 MMOL/L (3.6-5.0); SODIUM 141 MMOL/L (135-145); TOTAL PROTEIN 6.4 GM/DL (6.4-8.2)
[2020-08-26 11:48] LABS: BACTERIA,URINE MODERATE /HPF
== END ==
LOC: LAB 10:42
PROVIDERS: ATTEND Family Medicine
DX: J44.9 Chronic obstructive pulmonary disease, unspecified (principal); E78.5 Hyperlipidemia, unspecified; E66.9 Obesity, unspecified
CPT/HCPCS: 36415; 80053; 81000; 83036; 84443; 85007; 85027; 85652; 87088

== ENCOUNTER → 2020-08-26 | Outpatient (CLI) | payer MEDICARE, MEDICAID | LOC: LAB 10:38 | PROVIDERS: ATTEND Internal Medicine Cardiovascular Disease | DX: R06.00 Dyspnea, unspecified (principal) ==

== ENCOUNTER → 2020-08-29 | Outpatient (CLI) | payer MEDICARE, MEDICAID ==
[2020-08-29 10:48] LABS: BASOPHILS % (AUTO) 0 % (0-10); EOSINOPHILS % (AUTO) 0 % (0-10); HEMATOCRIT 34 % (35-52); HEMOGLOBIN 9.8 g/dL (11.5-16.0); LYMPHOCYTES # (AUTO) 1.3 10^3/uL (1.0-4.0); LYMPHOCYTES % (AUTO) 8 % (12-44); MEAN CORPUSCULAR HEMOGLOBIN 28 pg (25-34); MEAN CORPUSCULAR HGB CONC 29 g/dL (32-36); MEAN CORPUSCULAR VOLUME 96 fL (80-99); MONOCYTES # (AUTO) 0.8 10^3/uL (0.0-1.0); MONOCYTES % (AUTO) 5 % (0-12); NEUTROPHILS # (AUTO) 12.9 10^3/uL (1.8-7.8); NEUTROPHILS % (AUTO) 86 % (42-75); PLATELET COUNT 340 10^3/uL (130-400); WHITE BLOOD COUNT 15.1 10^3/uL (4.3-11.0)
[2020-08-29 11:11] LABS: ANISOCYTOSIS SLIGHT; BAND NEUTROPHILS 0 %; BASOPHILS % (MANUAL) 0 %; EOSINOPHILS % (MANUAL) 0 %; LYMPHOCYTES % (MANUAL) 4 %; MONOCYTES % (MANUAL) 1 %; NEUTROPHILS % (MANUAL) 95 %
== END ==
LOC: LAB 10:31
PROVIDERS: ATTEND Family Medicine
DX: D72.829 Elevated white blood cell count, unspecified (principal)
CPT/HCPCS: 36415; 85007; 85027

== ENCOUNTER → 2020-09-03 | Outpatient (CLI) | payer MEDICARE, MEDICAID ==
[~2020-09-03] VITALS: Ht 152 cm; Wt 68.0 kg
[~2020-09-03] MED LIST changes: +CATHETER FLUSH 10 ML SYR IV PRN; +REGADENOSON 0.4 MG/5 ML SYR (LEXISCAN) IV ONE
--- NOTE | 2020-09-04 13:03 | STRESS TEST ---
DATE OF SERVICE: 09/03/2020 RESTING AND POST REGADENOSON TECHNETIUM-99M TETROFOSMIN SPECT CT IMAGING ORDERING PHYSICIAN: Dr. Givens. PRIMARY PHYSICIAN: Dr. Jones. CLINICAL DIAGNOSES: Shortness of breath. Baseline images were carried out after injection of 10.88 mCi of technetium-99m Tetrofosmin. This was followed by 0.4 mg regadenoson and 30.2 mCi of technetium-99m Tetrofosmin for stress imaging. The electrocardiogram showed sinus rhythm at baseline. It did not change significantly with regadenoson infusion. Review of images at rest and following stress does not indicate any significant perfusion defects consistent with significant myocardial ischemia or infarction. Gated images show normal global left ventricular systolic function with normal regional wall motion. Left ventricular ejection fraction is calculated to be 71%. Left ventricular end diastolic volume is 63 mL. TID is absent (1.19). CONCLUSIONS: 1. No evidence of significant myocardial ischemia or infarction. 2. Normal regional wall motion. 3. Normal global left ventricular systolic function with a calculated ejection fraction of 71%. Job ID: [id number] DocumentID: [id number] Dictated Date: 09/04/2020 09:43:40 [employer] Date: 09/04/2020 13:03:08 Dictated By: LINDY GIVENS MD, MA, FACP, FACC,
== END ==
LOC: CARD 11:09
PROVIDERS: ATTEND Internal Medicine Cardiovascular Disease
DX: R06.00 Dyspnea, unspecified (principal)
CPT/HCPCS: 78452; 93017; A9502

== ENCOUNTER 2020-09-05 15:18 | Inpatient (IN) | payer MEDICARE, MEDICAID ==
[2020-09-04 20:00] VITALS: BP 126/89
[2020-09-05] VITALS (9 sets, daily range): BP systolic 105–126; BP diastolic 60–89
[~2020-09-05] VITALS: Ht 152 cm; Wt 107.1 kg
[~2020-09-05 15:18] MED LIST changes: -CATHETER FLUSH 10 ML SYR IV PRN; -REGADENOSON 0.4 MG/5 ML SYR (LEXISCAN) IV ONE
--- NOTE | 2020-09-05 15:59 | ED Respiratory ---
General Chief Complaint: Cough/Cold/Flu Symptoms Stated Complaint: LOW 02 COVID + Nursing Triage Note: PT CO OF TESTING COVID + YESTERDAY. PT HAS SOA, PT WEARS O2 AT 6L PER N/C. PT HAS TEMP OF 100.0. Source: patient Exam Limitations: no limitations History of Present Illness Date Seen by Provider: Sep 05, 2020 Time Seen by Provider: 15:37 Initial Comments Patient presents the ER from home with chief complaint of shortness of breath worsening for the past 2 days. She is a COPD patient dependent on oxygen at 6 L by nasal cannula at baseline and on prednisone and azithromycin for years. 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 Garcia. She called him and he instructed her to come to the ER for evaluation. She has a nonproductive cough. She does not smoke anymore. She denies any pain anywhere. She was tested positive for COVID-19 yesterday. They did not test her for influenza. The patient says she got off her oxygen on accident while cleaning out a closet yesterday and got down to 72% which gave her headache. This morning while getting into the shower for just 5 minutes she got down to 86% on room air. Allergies and Home Medications Allergies Coded Allergies: codeine (Verified Allergy, Intermediate, hives, 05/14/16) Home Medications Albuterol Sulfate 8.5 Gm Hfa.aer.ad, 2 PUFF INH Q4H PRN for SHORTNESS OF BREATH, (Reported) Albuterol/Ipratropium 3 Ml Nebu, 3 ML NEB QID PRN for SHORTNESS OF BREATH, (Reported) Alprazolam 0.5 Mg Tablet, 0.5 MG PO BID, (Reported) Arformoterol Tartrate 15 Mcg/2 Ml Vial.neb, 15 MCG NEB BID, (Reported) MIXES WITH BUDESONIDE Azithromycin 250 Mg Tablet, 250 MG PO UD TAKE 2 TABLETS ON DAY ONE THEN TAKE 1 TABLET DAILY FOR FOUR MORE DAYS Prescribed by: MIRTA HOUSE on 08/05/20 1226 Budesonide 0.5 Mg/2 Ml Ampul.neb, 0.5 MG NEB BID, (Reported) MIXES WITH BROVANA Cephalexin 500 Mg Capsule, 500 MG PO QID Prescribed by: MARIAH LAI on 02/19/18 1417 Cetirizine HCl 10 Mg Tablet, 10 MG PO DAILY, (Reported) Cholecalciferol (Vitamin D3) 1,000 Unit Tablet, 3,000 UNIT PO DAILY, (Reported) TAKES 3 (1,000 UNITS) TABLETS Empagliflozin 10 Mg Tablet, 10 MG PO DAILY, (Reported) Fluticasone Propionate 16 Gm [place].susp, 1 SPRAY NA BID PRN for ALLERGIES, (Reported) Fluvoxamine Maleate 100 Mg Tablet, 150 MG PO BID, (Reported) TAKES 1 & 1/2 (100MG) TABLET Gabapentin 600 Mg Tablet, 600 MG PO TID, (Reported) Hydrochlorothiazide 25 Mg Tablet, 25 MG PO DAILY, (Reported) Hydroxyzine HCl 50 Mg Tablet, 50 MG PO TID, (Reported) Ibuprofen 800 Mg Tablet, 800 MG PO BID, (Reported) Insulin Aspart 300 Units/3 Ml Solution, SQ AC, (Reported) 60-200 = 0 201-250 = 3 251-300 = 5 301-350 = 7 351-400 = 0 >400 CALL Insulin Degludec 100 Unit/1 Ml Insuln.pen, 12-13 UNITS SC DAILY, (Reported) Ketorolac Tromethamine 10 Mg Tablet, 10 MG PO Q8H Prescribed by: WILLY NEAL on 01/08/18 1302 Lorazepam 1 Mg Tablet, 1 MG PO Q12H PRN for ANXIETY Prescribed by: MARIAH LAI on 11/19/172158 Metformin HCl 500 Mg Tablet, 1,000 MG PO BID, (Reported) TAKES 2 (500MG) TABLETS Mirtazapine 15 Mg Tablet, 15 MG PO HS, (Reported) Montelukast Sodium 10 Mg Tablet, 10 MG PO DAILY, (Reported) Omeprazole 20 Mg Capsule.dr, 20 MG PO DAILY, (Reported) Potassium Gluconate 99 Mg Tablet, 99 MG PO DAILY PRN for CRAMPS, (Reported) Prednisone 10 Mg Tab, 10 MG PO DAILY, (Reported) Prednisone 20 Mg Tab, 60 MG PO BID 3 tabs twice a day x3 days 2 tabs twice a day x3 days 1 tab twice a day x3 days 1 tab daily x3 days Resume your reg dose Prescribed by: MARIAH LAI on 11/19/172158 Prednisone 20 Mg Tab, 40 MG PO DAILY Prescribed by: MIRTA HOUSE on 08/05/20 1226 Roflumilast 500 Mcg Tablet, 500 MCG PO DAILY, (Reported) Rosuvastatin Calcium 20 Mg Tablet, 20 MG PO DAILY Prescribed by: TEMITOPE GARCIA on 04/07/17 0805 Tiotropium [place] 4 Gm Mist.inhal, 1 PUFF IH DAILY, (Reported) Tramadol HCl 50 Mg Tablet, 50 MG PO Q6H PRN for PAIN Prescribed by: MARIAH LAI on 02/19/18 1417 Trazodone HCl 100 Mg Tablet, 100 MG PO HS, (Reported) Patient Home Medication List Home Medication List Reviewed: Yes Review of Systems Review of Systems Constitutional: No chills, No diaphoresis EENTM: No ear discharge, No ear pain Respiratory: cough, dyspnea on exertion, short of breath Cardiovascular: No chest pain, No palpitations Gastrointestinal: No abdominal pain, No constipation, No nausea, No vomiting Genitourinary: No discharge, No dysuria Musculoskeletal: No back pain, No joint pain Psychiatric/Neurological: Denies Anxiety, Denies Depressed All Other Systems Reviewed Negative Unless Noted: Yes Past Rfyfygi-Mpvkno-Bbvkdq Hx Patient Social History Alcohol Use: Denies Use Recreational Drug Use: No (smokes 2 PACKS A DAY) Smoking Status: Former Smoker Type Used: Cigarettes Former Smoker, Quit: Apr 20, 2014 2nd Hand Smoke Exposure: No Recent Foreign Travel: No Contact w/Someone Who Travel: No Recent Infectious Disease Expo: No Recent Hopitalizations: No ( X 2, ANXIETY ATTACK, DEPRESSION) Immunizations Up To Date Tetanus Booster (TDap): Unknown PED Vaccines UTD: No Date of Pneumonia Vaccine: May 24, 2012 Date of Influenza Vaccine: Jun 20, 2020 Seasonal Allergies Seasonal Allergies: No Past Medical History Surgeries: Yes (LEFT EYE--LASER REPAIR OF DETACHED RETINA) Section, Eye Surgery, Gallbladder, Tubal Ligation Respiratory: Yes (HOME O2-CHRONIC RESPIRATORY FAILURE, NO VENTILATOR--PER PT) Asthma, Pneumonia, Chronic Bronchitis, Sleep Apnea, COPD, Emphysema Currently Using CPAP: Yes Currently Using BIPAP: No Cardiac: Yes Hypertension Neurological: No Reproductive Disorders: No 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 Sexually Transmitted Disease: Yes (HERPES) HIV/AIDS: No Gastrointestinal: Yes Gastroesophageal Reflux, Gall Bladder Disease Musculoskeletal: Yes (SHOULDER PAIN ) Fibromyalgia, Fractures Endocrine: Yes (OBESITY) Diabetes, Insulin dep Loss of Vision: Denies Hearing Impairment: Denies Cancer: No Psychosocial: Yes Anxiety, Depression Integumentary: Yes (RASHES, abd folds and beneath her breast bilaterally red) Recent Skin Changes, Herpes Blood Disorders: No Adverse Reaction/Blood Tranf: No Family Medical History CHF grandmother Diabetes mellitus grandmother FH: CHF (congestive heart failure) History of - respiratory disease 03 FATHER (COPD) Physical Exam Vital Signs - First Documented 09/05/20 15:30 Temp 37.8 Pulse 126 Resp 24 B/P (MAP) 130/88 (102) Pulse Ox 99 Capillary Refill : Less Than 3 Seconds Height: 5'5.00" Weight: 227lbs. 0.4oz. 90.396753zl; 48.00 BMI Method:Estimated General Appearance: mild distress, other (Chronically ill with steroid habitus) Eyes: Bilateral Eye Normal Inspection, Bilateral Eye PERRL, Bilateral Eye EOMI HEENT: PERRL/EOMI, normal ENT inspection, pharynx normal Neck: full range of motion, supple, normal inspection Respiratory: lungs clear, respiratory distress (Chronic), decreased breath sounds, accessory muscle use Cardiovascular: normal peripheral pulses, regular rate, rhythm, tachycardia Gastrointestinal: non tender, soft Neurologic/Psychiatric: alert, normal mood/affect, oriented x 3 Skin: normal color, warm/dry Focused Exam Lactate Level 09/05/20 15:55: Lactic Acid Level 1.98 Lactic Acid Level Laboratory Tests Test 09/05/20 15:55 Lactic Acid Level 1.98 MMOL/L (0.50-2.00) Progress/Results/Core Measures Suspected Sepsis Recent Fever Within 48 Hours: No Infection Criteria Present: None New/Unexplained Altered Menta: No Sepsis Screen: No Definite Risk SIRS Temperature: Pulse: 126 Respiratory Rate: 24 Laboratory Tests 09/05/20 15:55: White Blood Count 10.5 Blood Pressure 130 /88 Mean: 102 09/05/20 15:55: Lactic Acid Level 1.98 Laboratory Tests 09/05/20 15:55: Creatinine 0.95, INR Comment 0.8, Platelet Count 356, Total Bilirubin 0.2 Results/Orders Lab Results Laboratory Tests Test 09/05/20 15:45 09/05/20 15:55 Range/Units Blood Gas Puncture Site [facility] RAD Blood Gas Patient Temperature 100 Arterial Blood pH 7.25 *L 7.37-7.43 Arterial Blood Partial Pressure CO2 68 H 35-45 MMHG Arterial Blood Partial Pressure O2 107 H 79-93 MMHG Arterial Blood HCO3 29 H 23-27 MMOL/L Arterial Blood Total CO2 30.9 21.0-31.0 MMOL/L Arterial Blood Oxygen Saturation 98 94-100 % Arterial Blood Base Excess 2.5 -2.5-2.5 MMOL/L Low Test POS Blood Gas Ventilator Setting NO Blood Gas Inspired Oxygen 5L White Blood Count 10.5 4.3-11.0 10^3/uL Red Blood Count 3.40 L 3.80-5.11 10^6/uL Hemoglobin 9.3 L 11.5-16.0 g/dL Hematocrit 32 L 35-52 % Mean Corpuscular Volume 93 80-99 fL Mean Corpuscular Hemoglobin 27 25-34 pg Mean Corpuscular Hemoglobin Concent 29 L 32-36 g/dL Red Cell Distribution Width 16.7 H 10.0-14.5 % Platelet Count 356 130-400 10^3/uL Mean Platelet Volume 10.6 9.0-12.2 fL Immature Granulocyte % (Auto) 1 % Neutrophils (%) (Auto) 94 H 42-75 % Lymphocytes (%) (Auto) 3 L 12-44 % Monocytes (%) (Auto) 2 0-12 % Eosinophils (%) (Auto) 0 0-10 % Basophils (%) (Auto) 0 0-10 % Neutrophils # (Auto) 9.9 H 1.8-7.8 10^3/uL Lymphocytes # (Auto) 0.3 L 1.0-4.0 10^3/uL Monocytes # (Auto) 0.2 0.0-1.0 10^3/uL Eosinophils # (Auto) 0.0 0.0-0.3 10^3/uL Basophils # (Auto) 0.0 0.0-0.1 10^3/uL Immature Granulocyte # (Auto) 0.1 0.0-0.1 10^3/uL Neutrophils % (Manual) 97 % Lymphocytes % (Manual) 2 % Monocytes % (Manual) 1 % Blood Morphology Comment NORMAL Prothrombin Time 12.0 L 12.2-14.7 SEC INR Comment 0.8 0.8-1.4 Activated Partial Thromboplast Time 21 L 24-35 SEC Sodium Level 138 135-145 MMOL/L Potassium Level 4.6 3.6-5.0 MMOL/L Chloride Level 101 98-107 MMOL/L Carbon Dioxide Level 25 21-32 MMOL/L Anion Gap 12 5-14 MMOL/L Blood Urea Nitrogen 15 7-18 MG/DL Creatinine 0.95 0.60-1.30 MG/DL Estimat Glomerular Filtration Rate > 60 BUN/Creatinine Ratio 16 Glucose Level 304 H 70-105 MG/DL Lactic Acid Level 1.98 0.50-2.00 MMOL/L Calcium Level 8.1 L 8.5-10.1 MG/DL Corrected Calcium 8.1 L 8.5-10.1 MG/DL Total Bilirubin 0.2 0.1-1.0 MG/DL Aspartate Amino Transf (AST/SGOT) 21 5-34 U/L Alanine Aminotransferase (ALT/SGPT) 14 0-55 U/L Alkaline Phosphatase 68 40-136 U/L C-Reactive Protein High Sensitivity 3.51 H 0.00-0.50 MG/DL Total Protein 7.1 6.4-8.2 GM/DL Albumin 4.0 3.2-4.5 GM/DL Procalcitonin 0.08 <0.10 NG/ML Micro Results Microbiology 09/05/20 Influenza Types A,B Antigen (BAN) - Final, Complete My Orders Orders - MARIAH LAI Cbc With Automated Diff (09/05/20 15:52) Comprehensive Metabolic Panel (09/05/20 15:52) Blood Culture (09/05/20 15:52) Sputum Culture (09/05/20 15:52) Urinalysis (09/05/20 15:52) Urine Culture (09/05/20 15:52) Protime With Inr (09/05/20 15:52) Partial Thromboplastin Time (09/05/20 15:52) Chest 1 View, Ap/Pa Only (09/05/20 15:52) Acetaminophen Tablet (Tylenol Tablet) (09/05/20 16:00) Ed Iv/Invasive Line Start (09/05/20 15:52) Ed Iv/Invasive Line Start (09/05/20 15:52) Vital Signs Adult Sepsis Patie Q15M (09/05/20 15:52) Ondansetron Injection (Zofran Injectio (09/05/20 16:00) O2 (09/05/20 15:52) Remove Rings In Anticipation O (09/05/20 15:52) Lactic Acid Analyzer (09/05/20 15:52) Influenza A And B Antigens (09/05/20 15:52) Ns Iv 1000 Ml (Sodium Chloride 0.9%) (09/05/20 16:00) Arterial Blood Gas (09/05/20 16:00) Hs C Reactive Protein (09/05/20 16:15) Procalcitonin (Pct) (09/05/20 16:15) Manual Differential (09/05/20 15:55) Methylprednisolone Sod Succ (Solu-Medrol (09/05/20 18:15) Medications Given in ED Current Medications Medications Dose Ordered Sig/[place] Route Start Time Stop Time Status Last Admin Dose Admin Acetaminophen 1,000 mg ONCE PRN PO 09/05/20 16:00 09/05/20 16:30 DC 09/05/20 16:30 1,000 MG Ondansetron HCl 8 mg PRN PRN IV 09/05/20 16:00 09/05/20 16:30 DC 09/05/20 16:29 8 MG Vital Signs/I&O 09/05/20 15:30 Temp 37.8 Pulse 126 Resp 24 B/P (MAP) 130/88 (102) Pulse Ox 99 Capillary Refill : Less Than 3 Seconds Blood Pressure Mean: 102 Progress Note : Time: 16:03 Progress Note Patient is compensating at 5 L per nasal cannula she is 99% but does have 22 breaths/min and tachycardia. We can give her some IV fluids get some labs. We will get a culture and a chest x-ray in case we see a bacterial pneumonia. Will get an influenza swab. At this point we might be able to treat her with bamlanivimab. She definitely has a BMI over 35 and he is at high risk for respiratory decompensation. If she would consent to the treatment we can set it up for her tomorrow afternoon. We discussed the case with the pharmacist and they agree. She is already on steroids and we have explained to her that bamlinivimab is not an approved drug authorized for use under the emergency use act. We have given her the fax sheet for patients and caregivers and reviewed it with her. To do a chest x-ray, CRP, PCT try and rule out any secondary bacterial infection. Diagnostic Imaging Diagonstic Imaging: Xray Plain Films/CT/US/NM/MRI: chest Comments NAME: [facility] REC#: [id number] PT STATUS: REG ER : 1970 PHYSICIAN: MARIAH LAI MD ADMIT DATE: 09/05/20/ER Signed Date of Exam:09/05/20 CHEST 1 VIEW, AP/PA ONLY INDICATION: Hypoxia, COVID positive. TECHNIQUE: Frontal chest obtained at 04:15 p.m. COMPARISON: Comparison made with 08/05/2020. FINDINGS: There is cardiomegaly with some central vascular congestion. There is no discrete focal infiltrate or pneumothorax or pleural fluid. IMPRESSION: Cardiomegaly with some central vascular congestion. No focal discrete infiltrate or pneumothorax or pleural fluid. Dictated by: Dictated on workstation # [id number] Dict: 09/05/20 1619 Trans: 09/05/20 1652 AS6 [id number] Interpreted by: BEHZAD CHAVARRIA MD Electronically signed by: BEHZAD CHAVARRIA MD 09/05/20 1652 Reviewed: Reviewed by Me Departure Communication (Admissions) Time/Spoke to Admitting Phy: 18:27 Discussed the case with Dr. Rubio and she agrees to admit the patient on BiPAP to the cardiac stepdown. Patient is DNR. Were going to do steroids but no antibiotics. Impression Primary Impression: Acute exacerbation of chronic obstructive airways disease Additional Impressions: COVID-19 Acute on chronic respiratory failure with hypoxia and hypercapnia Disposition: ADMITTED INPATIENT Condition: Stable Admissions Decision to Admit Reason: Admit from ER (General) Decision to Admit/Date: Sep 05, 2020 Time/Decision to Admit Time: 17:55 Departure-Patient Inst. Referrals: TEMITOPE GARCIA DO (PCP/Family) Primary Care Physician MARIAH LAI Sep 05, 2020 15:59
[2020-09-05] MEDS ORDERED: ONDANSETRON 4 MG/2 ML (SDV) Z0FRAN IV PRN (16:00)
[2020-09-05] MEDS ORDERED: ACETAMINOPHEN 500 MG TAB (TYLENOL) PO PRN (16:00)
[2020-09-05] MEDS ORDERED: NS IV 1000 ML 1,000 ML IV SCH (16:00)
[2020-09-05 16:04] LABS: ABG BASE EXCESS 2.5 MMOL/L (-2.5-2.5); ABG OXYGEN SATURATION 98 % (94-100); ABG PCO2 68 MMHG (35-45); ABG PO2 107 MMHG (79-93); ABG TCO2 30.9 MMOL/L (21.0-31.0)
[2020-09-05 16:08] LABS: ABG PH 7.25 (7.37-7.43); ALLENS TEST POS; INSPIRED O2 5L; PATIENT TEMP 100; VENTILATOR NO
--- NOTE | 2020-09-05 16:22 | Diagnostic Imaging Report ---
INDICATION: Hypoxia, COVID positive. TECHNIQUE: Frontal chest obtained at 04:15 p.m. COMPARISON: Comparison made with 08/05/2020. FINDINGS: There is cardiomegaly with some central vascular congestion. There is no discrete focal infiltrate or pneumothorax or pleural fluid. IMPRESSION: Cardiomegaly with some central vascular congestion. No focal discrete infiltrate or pneumothorax or pleural fluid. Dictated by: Dictated on workstation # [id number]
[2020-09-05 16:28] LABS: BASOPHILS % (AUTO) 0 % (0-10); EOSINOPHILS % (AUTO) 0 % (0-10); HEMATOCRIT 32 % (35-52); HEMOGLOBIN 9.3 g/dL (11.5-16.0); LYMPHOCYTES # (AUTO) 0.3 10^3/uL (1.0-4.0); LYMPHOCYTES % (AUTO) 3 % (12-44); MEAN CORPUSCULAR HEMOGLOBIN 27 pg (25-34); MEAN CORPUSCULAR HGB CONC 29 g/dL (32-36); MEAN CORPUSCULAR VOLUME 93 fL (80-99); MEAN PLATELET VOLUME 10.6 fL (9.0-12.2); MONOCYTES # (AUTO) 0.2 10^3/uL (0.0-1.0); MONOCYTES % (AUTO) 2 % (0-12); NEUTROPHILS # (AUTO) 9.9 10^3/uL (1.8-7.8); NEUTROPHILS % (AUTO) 94 % (42-75); PLATELET COUNT 356 10^3/uL (130-400); WHITE BLOOD COUNT 10.5 10^3/uL (4.3-11.0)
[2020-09-05 16:35] LABS: INR 0.8 (0.8-1.4)
[2020-09-05 16:44] LABS: CHLORIDE 101 MMOL/L (98-107); POTASSIUM 4.6 MMOL/L (3.6-5.0); SODIUM 138 MMOL/L (135-145)
[2020-09-05 16:45] LABS: CALCIUM 8.1 MG/DL (8.5-10.1)
[2020-09-05 16:46] LABS: GLUCOSE 304 MG/DL (70-105)
[2020-09-05 16:47] LABS: TOTAL PROTEIN 7.1 GM/DL (6.4-8.2)
[2020-09-05 16:48] LABS: BILIRUBIN,TOTAL 0.2 MG/DL (0.1-1.0); CARBON DIOXIDE 25 MMOL/L (21-32)
[2020-09-05 16:50] LABS: ALKALINE PHOSPHATASE 68 U/L (40-136); CREATININE SERUM 0.95 MG/DL (0.60-1.30); GFR ESTIMATED > 60
[2020-09-05 16:51] LABS: BUN/CREATININE RATIO 16
[2020-09-05 16:53] LABS: ALANINE AMINOTRANSFERASE 14 U/L (0-55)
[2020-09-05 17:09] LABS: NEUTROPHILS % (MANUAL) 97 %
[2020-09-05 17:10] LABS: LYMPHOCYTES % (MANUAL) 2 %; MONOCYTES % (MANUAL) 1 %; RBC MORPH NORMAL
[2020-09-05] MEDS ORDERED: methylPREDNISolone 125 MG (Solu-MEDROL) VIAL IVP ONE (18:15)
[2020-09-05] MEDS ORDERED: LACTATED RINGERS 1,000 ML IV ONE (19:44)
[2020-09-05] MEDS ORDERED: LORazepam INJ 2 MG/ML (ATIVAN) VIAL IV PRN (20:15)
[2020-09-05] MEDS ORDERED: CATHETER FLUSH 10 ML SYR IV PRN (20:15)
[2020-09-05] MEDS ORDERED: IBUPROFEN 600 MG (MOTRIN) TAB PO PRN (20:15)
[2020-09-05] MEDS ORDERED: morphine INJ 4 MG/ML 1 ML (VIAL/SYRINGE) IV PRN (20:15)
[2020-09-05] MEDS: LACTATED RINGERS 1,000 ML IV SCH (20:30)
[2020-09-05] MEDS: GABAPENTIN 600 MG (NEURONTIN) TAB PO SCH (20:30)
[2020-09-05] MEDS: inSUlin ASPART (NovoLOG) 1 UNIT/0.01 ML (CHARGE PER UNIT) SC SCH (20:31)
[2020-09-05] MEDS: traZODone 100 MG (DESYREL) TAB PO SCH (20:35)
[2020-09-06] VITALS (7 sets, daily range): BP systolic 94–109; BP diastolic 57–80
[2020-09-06] MEDS ORDERED: methylPREDNISolone 40 MG/ML (Solu-MEDROL) VIAL IV SCH
[2020-09-06] MEDS: traZODone 100 MG (DESYREL) TAB PO SCH ×2 (00:47→21:44)
[2020-09-06] MEDS: LACTATED RINGERS 1,000 ML IV SCH (02:30)
[2020-09-06 02:55] LABS: ABG BASE EXCESS 3.2 MMOL/L (-2.5-2.5); ABG OXYGEN SATURATION 77 % (94-100); ABG PCO2 54 MMHG (35-45); ABG PO2 45 MMHG (79-93); ABG TCO2 30.9 MMOL/L (21.0-31.0)
[2020-09-06 03:04] LABS: ALLENS TEST YES-POS; INSPIRED O2 25%; PATIENT TEMP 35.1; VENTILATOR NO
[2020-09-06 03:05] LABS: ABG PH 7.33 (7.37-7.43)
[2020-09-06 03:20] LABS: BASOPHILS % (AUTO) 0 % (0-10); EOSINOPHILS % (AUTO) 0 % (0-10); HEMATOCRIT 31 % (35-52); HEMOGLOBIN 8.9 g/dL (11.5-16.0); LYMPHOCYTES # (AUTO) 0.6 10^3/uL (1.0-4.0); LYMPHOCYTES % (AUTO) 6 % (12-44); MEAN CORPUSCULAR HEMOGLOBIN 27 pg (25-34); MEAN CORPUSCULAR HGB CONC 29 g/dL (32-36); MEAN CORPUSCULAR VOLUME 95 fL (80-99); MEAN PLATELET VOLUME 10.2 fL (9.0-12.2); MONOCYTES # (AUTO) 0.1 10^3/uL (0.0-1.0); MONOCYTES % (AUTO) 1 % (0-12); NEUTROPHILS # (AUTO) 8.3 10^3/uL (1.8-7.8); NEUTROPHILS % (AUTO) 92 % (42-75); PLATELET COUNT 333 10^3/uL (130-400); WHITE BLOOD COUNT 9.1 10^3/uL (4.3-11.0)
[2020-09-06 03:33] LABS: ALBUMIN 3.8 GM/DL (3.2-4.5)
[2020-09-06 03:34] LABS: CHLORIDE 102 MMOL/L (98-107); POTASSIUM 4.3 MMOL/L (3.6-5.0); SODIUM 138 MMOL/L (135-145)
[2020-09-06 03:35] LABS: CALCIUM 7.8 MG/DL (8.5-10.1)
[2020-09-06 03:36] LABS: GLUCOSE 219 MG/DL (70-105); TOTAL PROTEIN 6.6 GM/DL (6.4-8.2)
[2020-09-06 03:37] LABS: CARBON DIOXIDE 25 MMOL/L (21-32)
[2020-09-06 03:38] LABS: BILIRUBIN,TOTAL 0.2 MG/DL (0.1-1.0)
[2020-09-06 03:39] LABS: ALKALINE PHOSPHATASE 70 U/L (40-136)
[2020-09-06 03:40] LABS: CREATININE SERUM 0.77 MG/DL (0.60-1.30); GFR ESTIMATED > 60
[2020-09-06 03:41] LABS: BUN/CREATININE RATIO 19
[2020-09-06 03:43] LABS: ALANINE AMINOTRANSFERASE 12 U/L (0-55)
[2020-09-06] MEDS ORDERED: RT-ALBUTEROL INHALER HFA (VENTOLIN HFA) 18 GM IH PRN (04:30)
--- NOTE | 2020-09-06 05:58 | Pulmonary Consultation ---
History of Present Illness History of Present Illness Date Seen by Provider: Sep 06, 2020 Time Seen by Provider: 05:52 Date of Admission Allergies and Home Medications Allergies Coded Allergies: codeine (Verified Allergy, Intermediate, hives, 05/14/16) Home Medications Albuterol Sulfate 8.5 Gm Hfa.aer.ad, 2 PUFF INH Q4H PRN for SHORTNESS OF BREATH, (Reported) Albuterol/Ipratropium 3 Ml Nebu, 3 ML NEB QID PRN for SHORTNESS OF BREATH, (Reported) Alprazolam 0.5 Mg Tablet, 0.5 MG PO BID, (Reported) Arformoterol Tartrate 15 Mcg/2 Ml Vial.neb, 15 MCG NEB BID, (Reported) MIXES WITH BUDESONIDE Azithromycin 250 Mg Tablet, 250 MG PO UD TAKE 2 TABLETS ON DAY ONE THEN TAKE 1 TABLET DAILY FOR FOUR MORE DAYS Prescribed by: MIRTA HOUSE on 08/05/20 1226 Budesonide 0.5 Mg/2 Ml Ampul.neb, 0.5 MG NEB BID, (Reported) MIXES WITH BROVANA Cephalexin 500 Mg Capsule, 500 MG PO QID Prescribed by: MARIAH LAI on 02/19/18 1417 Cetirizine HCl 10 Mg Tablet, 10 MG PO DAILY, (Reported) Cholecalciferol (Vitamin D3) 1,000 Unit Tablet, 3,000 UNIT PO DAILY, (Reported) TAKES 3 (1,000 UNITS) TABLETS Empagliflozin 10 Mg Tablet, 10 MG PO DAILY, (Reported) Fluticasone Propionate 16 Gm [place].susp, 1 SPRAY NA BID PRN for ALLERGIES, (Reported) Fluvoxamine Maleate 100 Mg Tablet, 150 MG PO BID, (Reported) TAKES 1 & 1/2 (100MG) TABLET Gabapentin 600 Mg Tablet, 600 MG PO TID, (Reported) Hydrochlorothiazide 25 Mg Tablet, 25 MG PO DAILY, (Reported) Hydroxyzine HCl 50 Mg Tablet, 50 MG PO TID, (Reported) Ibuprofen 800 Mg Tablet, 800 MG PO BID, (Reported) Insulin Aspart 300 Units/3 Ml Solution, SQ AC, (Reported) 60-200 = 0 201-250 = 3 251-300 = 5 301-350 = 7 351-400 = 0 >400 CALL Insulin Degludec 100 Unit/1 Ml Insuln.pen, 12-13 UNITS SC DAILY, (Reported) Ketorolac Tromethamine 10 Mg Tablet, 10 MG PO Q8H Prescribed by: WILLY NEAL on 01/08/18 1302 Lorazepam 1 Mg Tablet, 1 MG PO Q12H PRN for ANXIETY Prescribed by: MARIAH LAI on 11/19/172158 Metformin HCl 500 Mg Tablet, 1,000 MG PO BID, (Reported) TAKES 2 (500MG) TABLETS Mirtazapine 15 Mg Tablet, 15 MG PO HS, (Reported) Montelukast Sodium 10 Mg Tablet, 10 MG PO DAILY, (Reported) Omeprazole 20 Mg Capsule.dr, 20 MG PO DAILY, (Reported) Potassium Gluconate 99 Mg Tablet, 99 MG PO DAILY PRN for CRAMPS, (Reported) Prednisone 10 Mg Tab, 10 MG PO DAILY, (Reported) Prednisone 20 Mg Tab, 60 MG PO BID 3 tabs twice a day x3 days 2 tabs twice a day x3 days 1 tab twice a day x3 days 1 tab daily x3 days Resume your reg dose Prescribed by: MARIAH LAI on 11/19/172158 Prednisone 20 Mg Tab, 40 MG PO DAILY Prescribed by: MIRTA HOUSE on 08/05/20 1226 Roflumilast 500 Mcg Tablet, 500 MCG PO DAILY, (Reported) Rosuvastatin Calcium 20 Mg Tablet, 20 MG PO DAILY Prescribed by: TEMITOPE GARCIA on 04/07/17 0805 Tiotropium [place] 4 Gm Mist.inhal, 1 PUFF IH DAILY, (Reported) Tramadol HCl 50 Mg Tablet, 50 MG PO Q6H PRN for PAIN Prescribed by: MARIAH LAI on 02/19/18 1417 Trazodone HCl 100 Mg Tablet, 100 MG PO HS, (Reported) Past Uevzcle-Egtify-Akbmpp Hx Patient Social History Alcohol Use: Denies Use Recreational Drug Use: No (smokes 2 PACKS A DAY) Smoking Status: Former Smoker Type Used: Cigarettes Former Smoker, Quit: Apr 20, 2014 2nd Hand Smoke Exposure: No Recent Foreign Travel: No Contact w/Someone Who Travel: No Recent Infectious Disease Expo: Yes Recent Hopitalizations: No ( X 2, ANXIETY ATTACK, DEPRESSION) Immunizations Up To Date Tetanus Booster (TDap): Unknown PED Vaccines UTD: No Date of Pneumonia Vaccine: Sep 05, 2018 Date of Influenza Vaccine: Jul 06, 2020 Seasonal Allergies Seasonal Allergies: No Past Medical History Surgeries: Yes (LEFT EYE--LASER REPAIR OF DETACHED RETINA) Section, Eye Surgery, Gallbladder, Tubal Ligation Respiratory: Yes (HOME O2-CHRONIC RESPIRATORY FAILURE, NO VENTILATOR--PER PT) Asthma, Pneumonia, Chronic Bronchitis, Sleep Apnea, COPD, Emphysema Currently Using CPAP: Yes Currently Using BIPAP: No Cardiac: Yes Hypertension Neurological: No Reproductive Disorders: No 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 Sexually Transmitted Disease: Yes (HERPES) HIV/AIDS: No Gastrointestinal: Yes Gastroesophageal Reflux, Gall Bladder Disease Musculoskeletal: Yes (SHOULDER PAIN ) Fibromyalgia, Fractures Endocrine: Yes (OBESITY) Diabetes, Insulin dep Loss of Vision: Denies Hearing Impairment: Denies Cancer: No Psychosocial: Yes Anxiety, Depression Integumentary: Yes (RASHES, abd folds and beneath her breast bilaterally red) Recent Skin Changes, Herpes Blood Disorders: No Adverse Reaction/Blood Tranf: No Family Medical History CHF grandmother Diabetes mellitus grandmother FH: CHF (congestive heart failure) History of - respiratory disease 03 FATHER (COPD) Review of Systems Time Seen by Provider: 05:59 Sepsis Event Evaluation Height, Weight, BMI Height: 5'5.00" Weight: 227lbs. 0.4oz. 90.381097sa; 45.44 BMI Method:Estimated Exam Exam Vital Signs Date Time Temp Pulse Resp B/P (MAP) Pulse Ox O2 Delivery O2 Flow Rate FiO2 09/06/20 04:36 35.5 78 16 100/57 (71) 94 NIV Bilevel 30.00 09/06/20 04:06 36.0 79 93 09/06/20 04:00 NIV Bilevel 30 09/06/20 03:16 79 16 89 25.00 09/06/20 01:00 80 09/06/20 00:51 95 NIV Bilevel 30.00 09/06/20 00:40 36.0 86 11 101/67 (78) 96 High Flow N/C 6.00 09/06/20 00:00 NIV Bilevel 30 09/05/20 23:00 85 15 107/64 (78) 90 NIV Bilevel 30.00 09/05/20 22:00 90 23 108/70 (83) 91 NIV Bilevel 30.00 09/05/20 21:30 88 21 107/64 (78) 90 NIV Bilevel 30.00 09/05/20 21:00 89 22 105/60 (75) 94 NIV Bilevel 30.00 09/05/20 20:45 90 22 109/70 (83) 94 NIV Bilevel 30.00 09/05/20 20:39 90 13 95 NIV Bilevel 30.00 09/05/20 20:30 92 16 114/67 (83) 95 NIV Bilevel 30.00 09/05/20 20:15 95 18 113/72 (86) 95 NIV Bilevel 30.00 09/05/20 20:00 94 NIV Bilevel 6.00 30 09/05/20 19:57 37.2 95 15 126/89 (101) 94 NIV Bilevel 30.00 09/05/20 19:49 99 09/05/20 19:37 37.4 106 18 130/96 94 NIV Bilevel 30.00 09/05/20 19:00 100 24 98 30.00 09/05/20 15:30 99 Nasal Cannula 6.00 09/05/20 15:30 37.8 126 24 130/88 (102) 99 I & O 09/06/20 06:59 Intake Total 1250 ml Balance 1250 ml Height & Weight Height: 5'5.00" Weight: 227lbs. 0.4oz. 90.210854kl; 45.44 BMI Method:Estimated Capillary Refill: Less Than 3 Seconds Gastrointestinal: non tender, soft Results Lab Laboratory Tests 09/05/20 15:55 09/06/20 02:58 Assessment/Plan Assessment/Plan COVID-19 r/o bacterial pna -No leukocyosis, PCT is normal -Repeat PCT if still normal will d/c Abx -Currently on BiPAP with 30% Fi02 -ABG and CXR reviewed. -Dx with COVID 09/04 -Remdesivir, CVP -Change solumedrol to decadron 6mg po daily COPDAE hx of oxygen dependent COPD (6liter NC at home) -Steroids -Albuterol, advair -Change BiPAP to Vapotherm -will keep BiPAP PRN -Pt is a DNR Anemia -Monitor DVT ppx -Start lovenox LUIZA THOMPSON DO Sep 06, 2020 05:58
--- NOTE | 2020-09-06 06:11 | Diagnostic Imaging Report ---
Indication: Hypoxemia Portable chest 1:56 AM Heart size and pulmonary vascularity are normal. Lungs are clear. There are no effusions or pneumothoraces. IMPRESSION: No acute abnormalities in the chest Dictated by: Dictated on workstation # [id number]
[2020-09-06] MEDS: inSUlin ASPART (NovoLOG) 1 UNIT/0.01 ML (CHARGE PER UNIT) SC SCH ×4 (07:02→21:44)
[2020-09-06] MEDS: dexAMETHasone 6 MG TAB (DECADRON) PO SCH (07:02)
[2020-09-06] MEDS ORDERED: REMDESIVIR INJ 200 MG in NS (IVPB) 210 ML IV NR (09:00)
[2020-09-06] MEDS: AZITHROMYCIN 250 MG TAB (ZITHROMAX) PO SCH (09:10)
[2020-09-06] MEDS: GABAPENTIN 600 MG (NEURONTIN) TAB PO SCH ×3 (09:10→21:44)
[2020-09-06] MEDS: RT-ALBUTEROL INHALER HFA (VENTOLIN HFA) 18 GM IH SCH ×3 (11:35→22:39)
[2020-09-06] MEDS ORDERED: ONDANSETRON 4 MG/2 ML (SDV) Z0FRAN IVP PRN (15:30)
--- NOTE | 2020-09-06 18:46 | NUR ---
PATIENT TRANSFERRED TO ROOM 430. REPORT FROM BRANT KAMINSKI.
[2020-09-06] MEDS: LORazepam INJ 2 MG/ML (ATIVAN) VIAL IVP PRN (22:20)
[2020-09-06] MEDS: ADVAIR HFA 115/21 MCG INHALER 8 GM IH SCH (22:39)
[2020-09-07] VITALS (8 sets, daily range): BP systolic 96–114; BP diastolic 50–76
[2020-09-07] MEDS: inSUlin ASPART (NovoLOG) 1 UNIT/0.01 ML (CHARGE PER UNIT) SC SCH ×4 (06:07→20:06)
[2020-09-07] MEDS: dexAMETHasone 6 MG TAB (DECADRON) PO SCH (06:15)
[2020-09-07] MEDS: RT-ALBUTEROL INHALER HFA (VENTOLIN HFA) 18 GM IH SCH ×3 (08:25→18:50)
[2020-09-07] MEDS: ADVAIR HFA 115/21 MCG INHALER 8 GM IH SCH ×2 (08:26→18:50)
[2020-09-07] MEDS: REMDESIVIR INJ 100 MG in NS (IVPB) 230 ML IV SCH (08:38)
[2020-09-07] MEDS: GABAPENTIN 600 MG (NEURONTIN) TAB PO SCH ×3 (08:38→20:27)
[2020-09-07] MEDS: AZITHROMYCIN 250 MG TAB (ZITHROMAX) PO SCH (08:39)
[2020-09-07] MEDS ORDERED: NS IV 500 ML 500 ML ONE (12:47)
--- NOTE | 2020-09-07 13:11 | NUR ---
VERBAL CONSENT FOR CONVALESCENT PLASMA OBTAINED AT THIS TIME AND WITNESSED BY NICOLAS VERDIN RN.
[2020-09-07] MEDS: LORazepam INJ 2 MG/ML (ATIVAN) VIAL IVP PRN (13:29)
--- NOTE | 2020-09-07 13:51 | Progress Note - Hospitalist ---
Subjective HPI/CC On Admission Date Seen by Provider: Sep 07, 2020 Time Seen by Provider: 13:45 Subjective/Events-last exam Pt reports doing better today. Down to 4lpm and normally on 6lpm at home. On day 2 of a remdesivr and asking about discharge plan. Discussed natural course of COVID and that worsening tends to occur around day 7-10. Only on day 3 of symptoms so will be important to watch closely over the next few days and complete remdesivir. Focused Exam Lactate Level 09/05/20 15:55: Lactic Acid Level 1.98 Objective Exam Vital Signs Vital Signs Date Time Temp Pulse Resp B/P (MAP) Pulse Ox O2 Delivery O2 Flow Rate FiO2 09/07/20 13:31 37.2 106 20 110/76 95 09/07/20 13:15 Nasal Cannula 4.00 09/06/20 12:00 30 Capillary Refill : Less Than 3 Seconds General Appearance: No Apparent Distress, Chronically ill, Obese Respiratory: No Accessory Muscle Use, Decreased Breath Sounds; No Wheezing; Other (on 4lpm NC) Cardiovascular: Regular Rate, Rhythm, No Murmur Gastrointestinal: Normal Bowel Sounds, Non Tender, Soft Neurologic/Psychiatric: Alert, Oriented x3 Results/Procedures Lab Patient resulted labs reviewed. Assessment/Plan Assessment and Plan Assess & Plan/Chief Complaint COVID-19 r/o bacterial pna -No leukocyosis, PCT is normal -Down to 4lpm NC currently -Dx with COVID 09/04 -Remdesivir, CVP - Continue Decadron - Discussed with patient my concern about potential worsening given how early in her disease process she is, very concerned she will decompensate over the next week, she expressed understanding COPDAE hx of oxygen dependent COPD (6liter NC at home) -Steroids -Albuterol, advair -will keep BiPAP PRN -Pt is a DNR (in fact was previously on hospice but a live discharge) -Continue ativan prn for anxiety Anemia -Monitor DVT ppx -lovenox Clinical Quality Measures DVT/VTE Risk/Contraindication: Risk Factor Score Per Nursin RFS Level Per Nursing on Admit: 4+=Very High ODALYS DAWSON MD Sep 07, 2020 13:50
[2020-09-07] MEDS: ACETAMINOPHEN 500 MG TAB (TYLENOL) PO PRN (16:25)
[2020-09-07] MEDS: oxyCODONE 5 MG/5 ML ORAL SOLN (roxiCODONE) 5 ML UDC PO PRN (16:26)
[2020-09-07] MEDS: traZODone 100 MG (DESYREL) TAB PO SCH (20:27)
[2020-09-08] MEDS: ACETAMINOPHEN 500 MG TAB (TYLENOL) PO PRN ×2 (00:13→21:00)
[2020-09-08] MEDS: LORazepam INJ 2 MG/ML (ATIVAN) VIAL IVP PRN ×3 (01:47→21:00)
[2020-09-08] MEDS: RT-ALBUTEROL INHALER HFA (VENTOLIN HFA) 18 GM IH SCH ×4 (02:57→22:05)
[2020-09-08] MEDS: inSUlin ASPART (NovoLOG) 1 UNIT/0.01 ML (CHARGE PER UNIT) SC SCH ×5 (05:45→20:27)
[2020-09-08] MEDS: dexAMETHasone 6 MG TAB (DECADRON) PO SCH (05:53)
[2020-09-08 06:14] LABS: HEMOGLOBIN 8.2 g/dL (11.5-16.0); MEAN PLATELET VOLUME 10.2 fL (9.0-12.2); WHITE BLOOD COUNT 10.2 10^3/uL (4.3-11.0)
[2020-09-08 06:37] LABS: ALBUMIN 3.6 GM/DL (3.2-4.5); CHLORIDE 99 MMOL/L (98-107); POTASSIUM 2.9 MMOL/L (3.6-5.0); SODIUM 138 MMOL/L (135-145)
[2020-09-08 06:39] LABS: CALCIUM 8.5 MG/DL (8.5-10.1)
[2020-09-08 06:40] LABS: GLUCOSE 90 MG/DL (70-105); TOTAL PROTEIN 6.3 GM/DL (6.4-8.2)
[2020-09-08 06:41] LABS: CARBON DIOXIDE 29 MMOL/L (21-32)
[2020-09-08 06:42] LABS: BILIRUBIN,TOTAL 0.1 MG/DL (0.1-1.0)
[2020-09-08 06:43] LABS: ALKALINE PHOSPHATASE 54 U/L (40-136)
[2020-09-08 06:44] LABS: CREATININE SERUM 0.68 MG/DL (0.60-1.30); GFR ESTIMATED > 60
[2020-09-08 06:45] LABS: BUN/CREATININE RATIO 19
[2020-09-08 06:46] LABS: ALANINE AMINOTRANSFERASE 9 U/L (0-55)
[2020-09-08 08:00] VITALS: BP 101/57
[2020-09-08] MEDS: REMDESIVIR INJ 100 MG in NS (IVPB) 230 ML IV SCH (08:45)
[2020-09-08] MEDS: AZITHROMYCIN 250 MG TAB (ZITHROMAX) PO SCH (08:45)
[2020-09-08] MEDS: GABAPENTIN 600 MG (NEURONTIN) TAB PO SCH ×3 (08:45→20:59)
[2020-09-08] MEDS: oxyCODONE 5 MG/5 ML ORAL SOLN (roxiCODONE) 5 ML UDC PO PRN ×2 (08:59→16:05)
[2020-09-08] MEDS: ADVAIR HFA 115/21 MCG INHALER 8 GM IH SCH ×2 (12:08→22:05)
--- NOTE | 2020-09-08 12:20 | Progress Note - Hospitalist ---
Subjective HPI/CC On Admission Date Seen by Provider: Sep 08, 2020 Time Seen by Provider: 12:17 Subjective/Events-last exam Pt reports doing well today. Up to 6lpm which is her baseline. Focused Exam Lactate Level 09/05/20 15:55: Lactic Acid Level 1.98 Objective Exam Vital Signs Vital Signs Date Time Temp Pulse Resp B/P (MAP) Pulse Ox O2 Delivery O2 Flow Rate FiO2 09/08/20 12:08 94 High Flow N/C 7.00 09/08/20 08:00 37.5 113 22 101/57 (72) 09/06/20 12:00 30 Capillary Refill : Less Than 3 Seconds General Appearance: No Apparent Distress, Chronically ill, Obese Respiratory: No Accessory Muscle Use, Rhonci; No Wheezing; Other (on 6lpm NC) Cardiovascular: Regular Rate, Rhythm, No Murmur Gastrointestinal: Normal Bowel Sounds, Non Tender, Soft Neurologic/Psychiatric: Alert, Oriented x3, Normal Mood/Affect Results/Procedures Lab Laboratory Tests 09/08/20 05:44 Patient resulted labs reviewed. Assessment/Plan Assessment and Plan Assess & Plan/Chief Complaint COVID-19 r/o bacterial pna - No leukocyosis, PCT is normal - On 6lpm NC currently - Dx with COVID 09/04 - Remdesivir, CVP - Continue Decadron - Oxygen need increasing still worried about potential worsening over next few days COPDAE hx of oxygen dependent COPD (6liter NC at home) -Steroids -Albuterol, advair -will keep BiPAP PRN -Pt is a DNR (in fact was previously on hospice but a live discharge) -Continue ativan prn for anxiety Anemia -Monitor DVT ppx -lovenox Clinical Quality Measures DVT/VTE Risk/Contraindication: Risk Factor Score Per Nursin RFS Level Per Nursing on Admit: 4+=Very High ODALYS DAWSON MD Sep 08, 2020 12:20
[2020-09-08 16:36] VITALS: BP 150/70
[2020-09-08] MEDS: traZODone 100 MG (DESYREL) TAB PO SCH (20:59)
[2020-09-08 23:59] VITALS: BP 93/55
[2020-09-09] MEDS: RT-ALBUTEROL INHALER HFA (VENTOLIN HFA) 18 GM IH SCH ×2 (02:36→07:31)
[2020-09-09 04:37] LABS: HEMOGLOBIN 8.3 g/dL (11.5-16.0); MEAN PLATELET VOLUME 10.1 fL (9.0-12.2); WHITE BLOOD COUNT 8.7 10^3/uL (4.3-11.0)
[2020-09-09 04:51] LABS: ALBUMIN 3.5 GM/DL (3.2-4.5); CHLORIDE 101 MMOL/L (98-107); POTASSIUM 3.2 MMOL/L (3.6-5.0); SODIUM 140 MMOL/L (135-145)
[2020-09-09 04:52] LABS: CALCIUM 9.4 MG/DL (8.5-10.1)
[2020-09-09 04:53] LABS: GLUCOSE 121 MG/DL (70-105); TOTAL PROTEIN 6.3 GM/DL (6.4-8.2)
[2020-09-09 04:54] LABS: CARBON DIOXIDE 26 MMOL/L (21-32)
[2020-09-09 04:55] LABS: BILIRUBIN,TOTAL 0.1 MG/DL (0.1-1.0)
[2020-09-09 04:57] LABS: ALKALINE PHOSPHATASE 56 U/L (40-136); CREATININE SERUM 0.72 MG/DL (0.60-1.30); GFR ESTIMATED > 60
[2020-09-09 04:58] LABS: BUN/CREATININE RATIO 24
[2020-09-09 05:00] LABS: ALANINE AMINOTRANSFERASE 9 U/L (0-55)
[2020-09-09] MEDS: inSUlin ASPART (NovoLOG) 1 UNIT/0.01 ML (CHARGE PER UNIT) SC SCH ×2 (05:13→12:54)
[2020-09-09] MEDS: dexAMETHasone 6 MG TAB (DECADRON) PO SCH (06:04)
[2020-09-09] MEDS: ADVAIR HFA 115/21 MCG INHALER 8 GM IH SCH (07:31)
[2020-09-09 08:00] VITALS: BP 115/60
[2020-09-09] MEDS: REMDESIVIR INJ 100 MG in NS (IVPB) 230 ML IV SCH (08:46)
[2020-09-09] MEDS: GABAPENTIN 600 MG (NEURONTIN) TAB PO SCH ×2 (08:46→12:54)
[2020-09-09] MEDS: AZITHROMYCIN 250 MG TAB (ZITHROMAX) PO SCH (08:46)
[2020-09-09] MEDS: oxyCODONE 5 MG/5 ML ORAL SOLN (roxiCODONE) 5 ML UDC PO PRN (08:46)
[2020-09-09] MEDS: LORazepam INJ 2 MG/ML (ATIVAN) VIAL IVP PRN (10:22)
[2020-09-09] MEDS ORDERED: DEXA6TAB PO (11:55)
[2020-09-09 14:01] VITALS: BP 115/60
--- NOTE | 2020-09-09 14:37 | NUR ---
CM FINALIZED DISCHARGE PLAN: Patient discharged to home today self care. She has already left the hospital before we could visit. indicated that the patient uses oxygen prior to this hospitalization and was at her baseline. Attempted to call her at home and was unable to make contact. No anticipated discharge needs.
--- NOTE | 2020-09-09 15:02 | Physician Query Clarification ---
"Physician Query-General Query to Physician: The medical record reflects the following clinical scenario: History/Risk factors: Covid 19, COPD with home 02, Obesity Clinical Findings: SOA with exertion, RR 24, 02 Sats 89% 02 Treatment: Steroids, Bipap, Vapotherm Question: Do you agree with the impression of Acute on Chronic Respiratory f ailure with Hypoxia per Dr. Aravind Akhtar? If you agree, please document in Progress Notes or Discharge Summary. 1. Yes; will document Covid 19 with Acute on Chronic Hypoxic Respiratory failure in the Progress Notes/Discharge Summary 2. No; will continue to documentation Covid 19 in the Progress Notes/Discharge Summary 3. Other; will document explanation of clinical findings 4. Clinically undetermined; no explanation for clinical findings Please remember a lack of response to the above will prompt a phone page by CDI/coding staff. In responding to this query, please exercise your independent professional judgment. The purpose of this communication is to more accurately reflect the complexity of your patients condition. The fact that a question is asked does not imply that any particular answer is desired or expected. Thank you for timely response to this clarification. Barbi Dodd, MSN, RN RN Specialist-Clinical Doc Improvement CD -Health Info Mgmt Operations [address] [facility] t: [phone] | f: [phone] If you are unable to reach me at my extension, I may be working from home. Zeyad julien contact me at [phone] PHYSICIAN RESPONSE: Based on the clinical findings in the record, please respond to the query above on this document as an addendum. Physician Response: Physician Response 1 If you have questions please contact: Label Cutter: Ext: Thank you for your time and cooperation. Clinical Tank Truck Milk Receiver/Label Cutter This is a permanent part of the medical record BARBI DODD Sep 09, 2020 15:02 ODALYS DAWSON MD Sep 12, 2020 20:17"
== END 2020-09-09 13:46 | disposition home or self-care (01) | DRG 177 ==
LOC: EDUNIT# 15:18 → ER 15:20 → CSD 18:20 → 4TH 09-06 18:40
PROVIDERS: ADMIT Family Medicine; ATTEND Internal Medicine
PROC: XW033E5 Introduction of Remdesivir Anti-infective into Peripheral Vein, Percutaneous Approach, New Technology Group 5 (ICD-10-PCS; principal; 2020-09-06)
PROC: XW13325 Transfusion of Convalescent Plasma (Nonautologous) into Peripheral Vein, Percutaneous Approach, New Technology Group 5 (ICD-10-PCS; 2020-09-07)
DX: U07.1 COVID-19 (principal); J96.21 Acute and chronic respiratory failure with hypoxia; J96.22 Acute and chronic respiratory failure with hypercapnia; J43.9 Emphysema, unspecified; E11.9 Type 2 diabetes mellitus without complications; I10 Essential (primary) hypertension; F41.9 Anxiety disorder, unspecified; F32.9 Major depressive disorder, single episode, unspecified; K21.9 Gastro-esophageal reflux disease without esophagitis; M79.7 Fibromyalgia; D64.9 Anemia, unspecified; Z66 Do not resuscitate; Z73.0 Burn-out; Z79.4 Long term (current) use of insulin; Z87.891 Personal history of nicotine dependence; Z99.81 Dependence on supplemental oxygen; Z88.6 Allergy status to analgesic agent; Z88.8 Allergy status to other drugs, medicaments and biological substances
CPT/HCPCS: 36415; 71045; 80053; 82805; 82962; 83605; 84145; 85007; 85025; 85027; 85610; 85730; 86141; 86900; 86901; 87040; 87804; 94640; 94660; 94760; 96361; 96374; 96375

== ENCOUNTER → 2020-10-10 | Outpatient (CLI) | payer MEDICARE, MEDICAID ==
[~2020-10-10] MED LIST changes: +DEXA6TAB PO
== END ==
LOC: CARD 10:00
PROVIDERS: ATTEND Internal Medicine Cardiovascular Disease
DX: R00.2 Palpitations (principal); R06.00 Dyspnea, unspecified
CPT/HCPCS: 93225; 93226; 93306

== ENCOUNTER 2020-11-21 09:44 | Emergency (ER) | payer MEDICARE, MEDICAID ==
[~2020-11-21] VITALS: Ht 152 cm; Wt 111.0 kg
[~2020-11-21 09:44] MED LIST changes: +MONT10TA32 PO; -MONT10TA97 PO
--- NOTE | 2020-11-21 10:10 | ED Fall/Injury ---
General Chief Complaint: Trauma-Non Activation Stated Complaint: R WRIST/LEG PAIN Nursing Triage Note: ARRIVED VIA AMB TO ROOM 07 WITH COMPLAINTS OF RIGHT LEG AND WRIST PAIN AFTER FALLING AT 0530 WALKING TO THE BATHROOM. PT IS WEARING A WENDY BANDAGE TO LOWER RIGHT ARM. DENIES HEAD/NECK PAIN BUT DOES STATES SHE HIT HER HEAD. Source: patient Exam Limitations: no limitations History of Present Illness Date Seen by Provider: Nov 21, 2020 Time Seen by Provider: 09:55 Initial Comments This 49-year-old woman presents to the emergency room with injuries to her right wrist and leg after having a fall at home. She was in a soriano to get to the bathroom right after she woke up and in the process fell forward landing on her right side. She has pain and bruising in the right hand and wrist as well as pain and bruising in the right knee and proximal lower leg. She did bump her head but denies any significant injury. She is not on any blood thinning medications. She denies any prodrome or loss of consciousness. She has COPD and is dependent on oxygen supplementation. She is in insulin using diabetic. She is on chronic steroid therapy. Allergies and Home Medications Allergies Coded Allergies: codeine (Verified Allergy, Intermediate, hives, 05/14/16) Home Medications Albuterol Sulfate 8.5 Gm Hfa.aer.ad, 2 PUFF INH Q4H PRN for SHORTNESS OF BREATH, (Reported) Albuterol/Ipratropium 3 Ml Nebu, 3 ML NEB QID PRN for SHORTNESS OF BREATH, (Reported) Alprazolam 0.5 Mg Tablet, 0.5 MG PO BID, (Reported) Arformoterol Tartrate 15 Mcg/2 Ml Vial.neb, 15 MCG NEB BID, (Reported) MIXES WITH BUDESONIDE Budesonide 0.5 Mg/2 Ml Ampul.neb, 0.5 MG NEB BID, (Reported) MIXES WITH BROVANA Cetirizine HCl 10 Mg Tablet, 10 MG PO DAILY, (Reported) Cholecalciferol (Vitamin D3) 1,000 Unit Tablet, 3,000 UNIT PO DAILY, (Reported) TAKES 3 (1,000 UNITS) TABLETS Dexamethasone 6 Mg Tablet, 6 MG PO DAILY@0700 Prescribed by: MALIA WATT on 09/09/20 1155 Empagliflozin 10 Mg Tablet, 10 MG PO DAILY, (Reported) Fluticasone Propionate 16 Gm Timber.susp, 1 SPRAY NA BID PRN for ALLERGIES, (Reported) Fluvoxamine Maleate 100 Mg Tablet, 150 MG PO BID, (Reported) TAKES 1 & 1/2 (100MG) TABLET Gabapentin 600 Mg Tablet, 600 MG PO TID, (Reported) Hydrochlorothiazide 25 Mg Tablet, 25 MG PO DAILY, (Reported) Hydroxyzine HCl 50 Mg Tablet, 50 MG PO TID, (Reported) Ibuprofen 800 Mg Tablet, 800 MG PO BID, (Reported) Insulin Aspart 300 Units/3 Ml Solution, SQ AC, (Reported) 60-200 = 0 201-250 = 3 251-300 = 5 301-350 = 7 351-400 = 0 >400 CALL Insulin Degludec 100 Unit/1 Ml Insuln.pen, 12-13 UNITS SC DAILY, (Reported) Ketorolac Tromethamine 10 Mg Tablet, 10 MG PO Q8H Prescribed by: WILLY NEAL on 01/08/18 1302 Lorazepam 1 Mg Tablet, 1 MG PO Q12H PRN for ANXIETY Prescribed by: MARIAH LAI on 11/19/172158 Metformin HCl 500 Mg Tablet, 1,000 MG PO BID, (Reported) TAKES 2 (500MG) TABLETS Mirtazapine 15 Mg Tablet, 15 MG PO HS, (Reported) Montelukast Sodium 10 Mg Tablet, 10 MG PO DAILY, (Reported) Omeprazole 20 Mg Capsule.dr, 20 MG PO DAILY, (Reported) Potassium Gluconate 99 Mg Tablet, 99 MG PO DAILY PRN for CRAMPS, (Reported) Prednisone 10 Mg Tab, 10 MG PO DAILY, (Reported) Prednisone 20 Mg Tab, 60 MG PO BID 3 tabs twice a day x3 days 2 tabs twice a day x3 days 1 tab twice a day x3 days 1 tab daily x3 days Resume your reg dose Prescribed by: MARIAH LAI on 11/19/172158 Prednisone 20 Mg Tab, 40 MG PO DAILY Prescribed by: MIRTA HOUSE on 08/05/20 1226 Roflumilast 500 Mcg Tablet, 500 MCG PO DAILY, (Reported) Rosuvastatin Calcium 20 Mg Tablet, 20 MG PO DAILY Prescribed by: TEMITOPE GARCIA on 04/07/17 0805 Tiotropium [place] 4 Gm Mist.inhal, 1 PUFF IH DAILY, (Reported) Tramadol HCl 50 Mg Tablet, 50 MG PO Q6H PRN for PAIN Prescribed by: MARIAH LAI on 02/19/18 1417 Trazodone HCl 100 Mg Tablet, 100 MG PO HS, (Reported) Patient Home Medication List Home Medication List Reviewed: Yes Review of Systems Review of Systems Constitutional: no symptoms reported Eyes: No Symptoms Reported Ears, Nose, Mouth, Throat: no symptoms reported Respiratory: see HPI Cardiovascular: no symptoms reported Gastrointestinal: no symptoms reported Genitourinary: no symptoms reported : No Musculoskeletal: see HPI Skin: see HPI Psychiatric/Neurological: No Symptoms Reported Past Mwpldkk-Tvjgkd-Kxmmqe Hx Past Med/Social Hx: Reviewed Nursing Past Med/Soc Hx Patient Social History Alcohol Use: Denies Use Smoking Status: Former Smoker Type Used: Cigarettes Former Smoker, Quit: Apr 20, 2014 2nd Hand Smoke Exposure: No Recent Infectious Disease Expo: No Recent Hopitalizations: No ( X 2, ANXIETY ATTACK, DEPRESSION) Immunizations Up To Date Tetanus Booster (TDap): Unknown PED Vaccines UTD: No Date of Pneumonia Vaccine: Sep 05, 2018 Date of Influenza Vaccine: Jul 06, 2020 Seasonal Allergies Seasonal Allergies: No Past Medical History Surgeries: Yes (LEFT EYE--LASER REPAIR OF DETACHED RETINA) Section, Eye Surgery, Gallbladder, Tubal Ligation Respiratory: Yes (HOME O2-CHRONIC RESPIRATORY FAILURE, NO VENTILATOR--PER PT) Asthma, Pneumonia, Chronic Bronchitis, Sleep Apnea, COPD, Emphysema Currently Using CPAP: Yes Currently Using BIPAP: No Cardiac: Yes Hypertension Neurological: No Reproductive Disorders: No 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 Disorders: Denies 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 Sexually Transmitted Disease: Yes (HERPES) HIV/AIDS: No Gastrointestinal: Yes Gastroesophageal Reflux, Gall Bladder Disease Musculoskeletal: Yes (SHOULDER PAIN ) Fibromyalgia, Fractures Endocrine: Yes (OBESITY) Diabetes, Insulin dep Loss of Vision: Denies Hearing Impairment: Denies Cancer: No Psychosocial: Yes Anxiety, Depression Integumentary: Yes (RASHES, abd folds and beneath her breast bilaterally red) Recent Skin Changes, Herpes Blood Disorders: No Adverse Reaction/Blood Tranf: No Family Medical History Reviewed Nursing Family Hx CHF grandmother Diabetes mellitus grandmother FH: CHF (congestive heart failure) History of - respiratory disease 03 FATHER (COPD) Physical Exam Vital Signs Vital Signs - First Documented 11/21/20 09:45 Temp 36.9 Pulse 125 Resp 20 B/P (MAP) 143/64 (90) Pulse Ox 92 O2 Delivery Nasal Cannula O2 Flow Rate 4.00 Capillary Refill : Less Than 3 Seconds Height, Weight, BMI Height: 5'5.00" Weight: 227lbs. 0.4oz. 90.841306vg; 48.00 BMI Method:Estimated General Appearance: WD/WN, mild distress HEENT: normal ENT inspection Neck: normal inspection Cardiovascular: regular rate, rhythm, no edema Respiratory: lungs clear, normal breath sounds, no respiratory distress Extremities: other (Pain, tenderness and swelling to the right wrist. Tenderness to palpation in the right hand. 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 Concierge induces pain. Radial pulse normal. Sensation in the fingers intact. Ecchymosis around the right knee and proximal lower leg with associated tenderness. No tenderness, swelling, or bruising in the foot or ankle. No tenderness to palpation or pain with rotation of the right hip.) Skin: warm/dry, ecchymosis Toi Coma Score Best Eye Response: (4) Open Spontaneously Best Verbal Response: (5) Oriented Best Motor Response: (6) Obeys Commands Toi Total: 15 Progress/Results/Core Measures Results/Orders My Orders Orders - KELLIE QUINTERO MD Wrist, Right, 3 Views Or More (11/21/20 10:01) Hand, Right, 3 Views (11/21/20 10:01) Tibia/Fibula, Right, 2 Views (11/21/20 10:01) Knee, Right, 3 Views (11/21/20 10:01) Hydrocodone/Apap 5/325 Tablet (Lortab 5 (11/21/20 10:15) Medications Given in ED Current Medications Medications Dose Ordered Sig/[place] Route Start Time Stop Time Status Last Admin Dose Admin Acetaminophen/ Hydrocodone Bitart 1 ea ONCE ONCE PO 11/21/20 10:15 11/21/20 10:16 DC 11/21/20 10:07 1 EA Vital Signs/I&O 11/21/20 09:45 Temp 36.9 Pulse 125 Resp 20 B/P (MAP) 143/64 (90) Pulse Ox 92 O2 Delivery Nasal Cannula O2 Flow Rate 4.00 Blood Pressure Mean: 90 Progress Progress Note #1: Time: 10:13 Progress Note Patient was seen and examined. X-rays were ordered. Hydrocodone is being given for pain. Progress Note #2: Time: 11:10 Progress Note Right wrist fracture was noted. Collie splint was applied. Hydrocodone prescription was provided. Patient advised to follow-up with an orthopedic provider soon as possible. Diagnostic Imaging Diagonstic Imaging: Xray Plain Films/CT/US/NM/MRI: hand Comments Right hand x-ray viewed by me and report reviewed. See report below: NAME: RICHA [facility]UTHERFORD [facility] REC#: [id number] PT STATUS: REG ER : 1970 PHYSICIAN: KELLIE QUINTERO MD ADMIT DATE: 11/21/20/ER Draft Date of Exam:11/21/20 HAND, RIGHT, 3 VIEWS INDICATION: Right hand pain 3 views of the right hand show an impacted fracture of the distal radius with dorsal angulation. The carpal bones, metacarpals and phalanges appear normal. IMPRESSION: Dorsally impacted fracture distal radius Dictated on workstation # [id number] Dict: 11/21/20 1043 Trans: 11/21/[address] [place] [address] [id number] Interpreted by: SERENITY RHODES MD Diagonstic Imaging: Xray Plain Films/CT/US/NM/MRI: other (Right wrist) Comments Right wrist x-ray viewed by me and report reviewed. See report below: NAME: RICHA [facility]ORD [facility] REC#: [id number] PT STATUS: REG ER : 1970 PHYSICIAN: KELLIE QUINTERO MD ADMIT DATE: 11/21/20/ER Draf t Date of Exam:11/21/20 WRIST, RIGHT, 3 VIEWS OR MORE INDICATION: Right wrist injury Three views of the right wrist show a dorsally impacted fracture of the distal radius. The ulna appears intact. IMPRESSION: Dorsally impacted fracture distal radius. Dictated on workstation # [id number] Dict: 11/21/20 1046 Trans: 11/21/20 [facility] [id number] Interpreted by: SERENITY RHODES MD Diagonstic Imaging: Xray Plain Films/CT/US/NM/MRI: leg Comments Right tib-fib x-rays viewed by me and report reviewed. See report below: NAME: RICHA [facility]ORD [facility] REC#: [id number] PT STATUS: REG ER : 1970 PHYSICIAN: KELLIE QUINTERO MD ADMIT DATE: 11/21/20/ER Draft Date of Exam:11/21/20 TIBIA/FIBULA, RIGHT, 2 VIEWS INDICATION: Right leg injury from a fall AP and lateral views of the right tibia and fibula show no fracture or dislocation. IMPRESSION: Negative right tibia and fibula Dictated on workstation # [id number] Dict: 11/21/20 1057 Trans: 11/21/20 1059 [facility] [id number] Interpreted by: SERENITY RHODES MD Diagonstic Imaging: Xray Plain Films/CT/US/NM/MRI: knee Comments Right knee x-rays reviewed by me and report reviewed. See report below: NAME: RICHA [facility]ORD [facility] REC#: [id number] PT STATUS: REG ER : 1970 PHYSICIAN: KELLIE QUINTERO MD ADMIT DATE: 11/21/20/ER Draft Date of Exam:11/21/20 KNEE, RIGHT, 3 VIEWS INDICATION: Pain after a fall. Three views of the right knee were obtained. FINDINGS: The alignment is normal. There is no fracture or dislocation. The soft tissues are unremarkable. IMPRESSION: No focal abnormality in the right knee. Dictated on workstation # [id number] Dict: 11/21/20 1042 Trans: 11/21/20 1046 [facility] [id number] Interpreted by: GURWINDER PINZON MD Departure Impression Primary Impression: Closed right radial fracture Qualified Codes: S52.591A - Other fractures of lower end of right radius, initial encounter for closed fracture Additional Impressions: Fall on same level as cause of accidental injury Contusion of right knee Qualified Codes: S80.01XA - Contusion of right knee, initial encounter Disposition: HOME, SELF-CARE Condition: Improved Departure-Patient Inst. Decision time for Depature: 11:05 Referrals: TEMITOPE GARCIA DO (PCP/Family) Primary Care Physician ROBIN SARKAR MD, MICHAEL P MD Patient Instructions: SPLINT CARE, Wrist Fracture (DC) Add. Discharge Instructions: Keep the wrist in the splint as much as possible. Keep the splint clean and dry. Use hydrocodone as prescribed for treatment of pain. Elevate the wrist to the level of your heart as much as possible. You may ice in 20-minute intervals to help reduce pain and swelling as well. Follow-up with an orthopedic provider as soon as possible. Contact information for Dr. Rivas and Dr. Sarkar is below for your convenience. Please call today for an appointment. All discharge instructions reviewed with patient and/or family. Voiced understanding. Scripts Hydrocodone/Acetaminophen (Hydrocodone-Acetamin 5-325 mg) 1 Each Tablet 1 TAB PO Q4H PRN for PAIN-MODERATE (5-7), #20 TAB Prov: KELLIE QUINTERO MD 11/21/20 KELLIE QUINTERO MD Nov 21, 2020 10:09
[2020-11-21] MEDS ORDERED: HYDROcodone/APAP 5 MG/325 MG (LORTAB) TAB PO ONE (10:15)
--- NOTE | 2020-11-21 10:47 | Diagnostic Imaging Report ---
INDICATION: Pain after a fall. Three views of the right knee were obtained. FINDINGS: The alignment is normal. There is no fracture or dislocation. The soft tissues are unremarkable. IMPRESSION: No focal abnormality in the right knee. Dictated by: Dictated on workstation # [id number]
--- NOTE | 2020-11-21 10:48 | Diagnostic Imaging Report ---
INDICATION: Right hand pain 3 views of the right hand show an impacted fracture of the distal radius with dorsal angulation. The carpal bones, metacarpals and phalanges appear normal. IMPRESSION: Dorsally impacted fracture distal radius Dictated by: Dictated on workstation # [id number]
--- NOTE | 2020-11-21 10:48 | Diagnostic Imaging Report ---
INDICATION: Right wrist injury Three views of the right wrist show a dorsally impacted fracture of the distal radius. The ulna appears intact. IMPRESSION: Dorsally impacted fracture distal radius. Dictated by: Dictated on workstation # [id number]
--- NOTE | 2020-11-21 10:59 | Diagnostic Imaging Report ---
INDICATION: Right leg injury from a fall AP and lateral views of the right tibia and fibula show no fracture or dislocation. IMPRESSION: Negative right tibia and fibula Dictated by: Dictated on workstation # [id number]
[2020-11-21] MEDS ORDERED: ACHD5005 PO (11:08)
[2020-11-21 11:29] VITALS: BP 139/87
== END 2020-11-21 11:29 | disposition home or self-care (01) ==
LOC: EDUNIT# 09:44 → ER 09:45
DX: S52.591A Other fractures of lower end of right radius, initial encounter for closed fracture (principal); S80.01XA Contusion of right knee, initial encounter; F41.0 Panic disorder [episodic paroxysmal anxiety]; F32.9 Major depressive disorder, single episode, unspecified; I10 Essential (primary) hypertension; E11.9 Type 2 diabetes mellitus without complications; K21.9 Gastro-esophageal reflux disease without esophagitis; M79.7 Fibromyalgia; E66.9 Obesity, unspecified; J43.9 Emphysema, unspecified; Z87.891 Personal history of nicotine dependence; Z79.4 Long term (current) use of insulin; Z99.81 Dependence on supplemental oxygen; Z79.51 Long term (current) use of inhaled steroids; Z79.52 Long term (current) use of systemic steroids; Z88.5 Allergy status to narcotic agent; W18.30XA Fall on same level, unspecified, initial encounter; Y92.009 Unspecified place in unspecified non-institutional (private) residence as the place of occurrence of the external cause
CPT/HCPCS: 73110; 73130; 73562; 73590

== ENCOUNTER 2020-12-23 07:58 | Emergency (ER) | payer MEDICARE, MEDICAID ==
[~2020-12-23] VITALS: Ht 154 cm; Wt 106.0 kg
[~2020-12-23 07:58] MED LIST changes: +ACHD5005 PO
[2020-12-23 08:00] VITALS: BP 131/101
--- NOTE | 2020-12-23 08:40 | ED Integumentary General ---
General Chief Complaint: Skin/Wound Problems Stated Complaint: NAUSEOUS, FINGERS TINGLING, RASH Nursing Triage Note: PT AMB TO ROOM 6 PT CO OF PAINFUL RASH, 9/10 UNDER R ARM AREAS. PT HAS PATCH OF RAISED RED BLISTERS STARTED LAST PM. Source: patient Exam Limitations: no limitations History of Present Illness Date Seen by Provider: Dec 23, 2020 Time Seen by Provider: 08:19 Initial Comments Here with report of rash, itchy and painful patch to the back that extends around the right side under her breast to her breastbone. Has not had this before. States the blisters broke out last night. Denies being recently sick. Also complains of some pain in the right hand although has history of previous fracture and uses wrist splint. Does have COPD and is on prednisone currently. She is at her maintenance dose of 5 mg daily. Denies fever chills, nausea, vomiting or breathing problems. Timing/Duration: yesterday, getting worse Severity: moderate Associated Symptoms: edema; No fever; rash Allergies and Home Medications Allergies Coded Allergies: codeine (Verified Allergy, Intermediate, hives, 05/14/16) Home Medications Albuterol Sulfate 8.5 Gm Hfa.aer.ad, 2 PUFF INH Q4H PRN for SHORTNESS OF BREATH, (Reported) Albuterol/Ipratropium 3 Ml Nebu, 3 ML NEB QID PRN for SHORTNESS OF BREATH, (Reported) Alprazolam 0.5 Mg Tablet, 0.5 MG PO BID, (Reported) Arformoterol Tartrate 15 Mcg/2 Ml Vial.neb, 15 MCG NEB BID, (Reported) MIXES WITH BUDESONIDE Budesonide 0.5 Mg/2 Ml Ampul.neb, 0.5 MG NEB BID, (Reported) MIXES WITH BROVANA Cetirizine HCl 10 Mg Tablet, 10 MG PO DAILY, (Reported) Cholecalciferol (Vitamin D3) 1,000 Unit Tablet, 3,000 UNIT PO DAILY, (Reported) TAKES 3 (1,000 UNITS) TABLETS Dexamethasone 6 Mg Tablet, 6 MG PO DAILY@0700 Prescribed by: MALIA WATT on 09/09/20 1155 Empagliflozin 10 Mg Tablet, 10 MG PO DAILY, (Reported) Fluticasone Propionate 16 Gm [place].susp, 1 SPRAY NA BID PRN for ALLERGIES, (Reported) Fluvoxamine Maleate 100 Mg Tablet, 150 MG PO BID, (Reported) TAKES 1 & 1/2 (100MG) TABLET Gabapentin 600 Mg Tablet, 600 MG PO TID, (Reported) Hydrochlorothiazide 25 Mg Tablet, 25 MG PO DAILY, (Reported) Hydrocodone/Acetaminophen 1 Each Tablet, 1 TAB PO Q4H PRN for PAIN-MODERATE (5- 7) Prescribed by: KELLIE FAY on 11/21/20 1109 Hydroxyzine HCl 50 Mg Tablet, 50 MG PO TID, (Reported) Ibuprofen 800 Mg Tablet, 800 MG PO BID, (Reported) Insulin Aspart 300 Units/3 Ml Solution, SQ AC, (Reported) 60-200 = 0 201-250 = 3 251-300 = 5 301-350 = 7 351-400 = 0 >400 CALL Insulin Degludec 100 Unit/1 Ml Insuln.pen, 12-13 UNITS SC DAILY, (Reported) Ketorolac Tromethamine 10 Mg Tablet, 10 MG PO Q8H Prescribed by: WILLY NEAL on 01/08/18 1302 Lorazepam 1 Mg Tablet, 1 MG PO Q12H PRN for ANXIETY Prescribed by: MARIAH LAI on 11/19/172158 Metformin HCl 500 Mg Tablet, 1,000 MG PO BID, (Reported) TAKES 2 (500MG) TABLETS Mirtazapine 15 Mg Tablet, 15 MG PO HS, (Reported) Montelukast Sodium 10 Mg Tablet, 10 MG PO DAILY, (Reported) Omeprazole 20 Mg Capsule.dr, 20 MG PO DAILY, (Reported) Potassium Gluconate 99 Mg Tablet, 99 MG PO DAILY PRN for CRAMPS, (Reported) Prednisone 10 Mg Tab, 10 MG PO DAILY, (Reported) Prednisone 20 Mg Tab, 60 MG PO BID 3 tabs twice a day x3 days 2 tabs twice a day x3 days 1 tab twice a day x3 days 1 tab daily x3 days Resume your reg dose Prescribed by: MARIAH LAI on 11/19/172158 Prednisone 20 Mg Tab, 40 MG PO DAILY Prescribed by: MIRTA HOUSE on 08/05/20 1226 Roflumilast 500 Mcg Tablet, 500 MCG PO DAILY, (Reported) Rosuvastatin Calcium 20 Mg Tablet, 20 MG PO DAILY Prescribed by: TEMITOPE GARCIA on 04/07/17 0805 Tiotropium [place] 4 Gm Mist.inhal, 1 PUFF IH DAILY, (Reported) Tramadol HCl 50 Mg Tablet, 50 MG PO Q6H PRN for PAIN Prescribed by: MARIAH LAI on 02/19/18 1417 Trazodone HCl 100 Mg Tablet, 100 MG PO HS, (Reported) Patient Home Medication List Home Medication List Reviewed: Yes Review of Systems Review of Systems Constitutional: see HPI; No chills, No fever Respiratory: no symptoms reported Cardiovascular: no symptoms reported Skin: see HPI, change in color, lesions, pruritus, rash Past Etsopca-Yegmwn-Undogg Hx Past Med/Social Hx: Reviewed Nursing Past Med/Soc Hx Patient Social History Alcohol Use: Denies Use Smoking Status: Former Smoker Type Used: Cigarettes Former Smoker, Quit: Apr 20, 2014 2nd Hand Smoke Exposure: No Recent Infectious Disease Expo: No Recent Hopitalizations: No ( X 2, ANXIETY ATTACK, DEPRESSION) Immunizations Up To Date Tetanus Booster (TDap): Unknown PED Vaccines UTD: No Date of Pneumonia Vaccine: Sep 05, 2018 Date of Influenza Vaccine: Jul 06, 2020 Seasonal Allergies Seasonal Allergies: No Past Medical History Surgeries: Yes (LEFT EYE--LASER REPAIR OF DETACHED RETINA) Section, Eye Surgery, Gallbladder, Tubal Ligation Respiratory: Yes (HOME O2-CHRONIC RESPIRATORY FAILURE, NO VENTILATOR--PER PT) Asthma, Pneumonia, Chronic Bronchitis, Sleep Apnea, COPD, Emphysema Currently Using CPAP: Yes Currently Using BIPAP: No Cardiac: Yes Hypertension Neurological: No Reproductive Disorders: No 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 Sexually Transmitted Disease: Yes (HERPES) HIV/AIDS: No Gastrointestinal: Yes Gastroesophageal Reflux, Gall Bladder Disease Musculoskeletal: Yes (SHOULDER PAIN ) Fibromyalgia, Fractures Endocrine: Yes (OBESITY) Diabetes, Insulin dep Loss of Vision: Denies Hearing Impairment: Denies Cancer: No Psychosocial: Yes Anxiety, Depression Integumentary: Yes (RASHES, abd folds and beneath her breast bilaterally red) Recent Skin Changes, Herpes Blood Disorders: No Adverse Reaction/Blood Tranf: No Family Medical History Reviewed Nursing Family Hx CHF grandmother Diabetes mellitus grandmother FH: CHF (congestive heart failure) History of - respiratory disease 03 FATHER (COPD) Physical Exam Vital Signs Vital Signs - First Documented 12/23/20 08:00 Temp 35.4 Pulse 88 Resp 18 B/P (MAP) 131/101 (111) Pulse Ox 92 O2 Delivery Nasal Cannula O2 Flow Rate 4.00 Capillary Refill : Less Than 3 Seconds General Appearance: WD/WN, no apparent distress Cardiovascular: regular rate, rhythm, no murmur Respiratory: lungs clear, normal breath sounds Skin Problem Location: torso (Right sided from mid back approximately T6 around right side to xiphoid.) Skin Problem Character: drainage, erythema, lesion, vesicular, other (Follows dermatome on right with patchy, red, vesicular rash and eruptions.) Progress/Results/Core Measures Results/Orders Vital Signs/I&O 12/23/20 08:00 Temp 35.4 Pulse 88 Resp 18 B/P (MAP) 131/101 (111) Pulse Ox 92 O2 Delivery Nasal Cannula O2 Flow Rate 4.00 Blood Pressure Mean: 111 Progress Progress Note : Progress Note Seen and evaluated. Did discuss shingles outbreak with the patient. We will initiate antiviral as she is early in the disease process. I did discuss with her about acetaminophen usage. We will prescribe oral pain meds. Patient complained of wrist hurting and she does have Velcro splint in place. Appar ently had previous fracture and is under the care of Dr. Rome. She has full range of motion of the right hand and wrist without any obvious lesions. Patient will continue wrist splint. Discharged home with return precautions. Patient verbalized understanding of instructions and agreement with plan. Departure Impression Primary Impression: Shingles outbreak Qualified Codes: B02.9 - Zoster without complications Disposition: 01 HOME, SELF-CARE Condition: Stable Departure-Patient Inst. Decision time for Depature: 08:40 Referrals: TEMITOPE GARCIA DO (PCP/Family) Primary Care Physician Patient Instructions: Shingles (DC) Add. Discharge Instructions: All discharge instructions reviewed with patient and/or family. Voiced understanding. Take medications as directed. Follow-up with your doctor for recheck and further evaluation and for further pain medications as needed. You may take ibuprofen up to 600 mg every 8 hours as needed for pain. You may take Tylenol/acetaminophen 1000 mg every 6 hours as needed for pain if you are not t aking the prescribed pain medicine. Do not take both at the same time as they both have acetaminophen in them. Do not exceed 4000 mg of Tylenol/acetaminophen in a 24-hour period. Return for worse pain, fever, breathing problems, weakness or other concerns as needed. Scripts Hydrocodone/Acetaminophen (Hydrocodone-Acetamin 5-325 mg) 1 Each Tablet 1 TAB PO Q6H PRN for PAIN-MODERATE (5-7) for 7 Days, #16 TAB 0 Refills Prov: SERENITY BARNES MD 12/23/20 Valacyclovir HCl (Valacyclovir) 1,000 Mg Tablet 1000 MG PO TID for 7 Days, #21 TAB 0 Refills Prov: SERENITY BARNES MD 12/23/20 Copy Copies To 1: TEMITOPE GARCIA TIMOTHY D MD Dec 23, 2020 08:40
[2020-12-23] MEDS ORDERED: ACHD5005 PO ×2 (08:44→08:48)
[2020-12-23] MEDS ORDERED: VALA10007 PO ×2 (08:44→08:48)
== END 2020-12-23 08:55 | disposition home or self-care (01) ==
LOC: EDUNIT# 07:58 → ER 08:00
DX: B02.9 Zoster without complications (principal); I10 Essential (primary) hypertension; E11.9 Type 2 diabetes mellitus without complications; F41.0 Panic disorder [episodic paroxysmal anxiety]; F32.9 Major depressive disorder, single episode, unspecified; K21.9 Gastro-esophageal reflux disease without esophagitis; M79.7 Fibromyalgia; E66.9 Obesity, unspecified; J43.9 Emphysema, unspecified; Z87.891 Personal history of nicotine dependence; Z79.4 Long term (current) use of insulin; Z79.52 Long term (current) use of systemic steroids; Z79.51 Long term (current) use of inhaled steroids; Z87.09 Personal history of other diseases of the respiratory system; Z87.01 Personal history of pneumonia (recurrent); Z87.81 Personal history of (healed) traumatic fracture
CPT/HCPCS: 99282

== ENCOUNTER → 2020-12-26 | Outpatient (CLI) | payer MEDICARE, MEDICAID ==
[~2020-12-26] MED LIST changes: +VALA10007 PO
--- NOTE | 2020-12-26 13:09 | Diagnostic Imaging Report ---
INDICATION: Fracture. Compared made with prior examination 11/21/2020 FINDINGS: There is a comminuted and slightly impacted fracture of the distal radius. There is dorsal angulation of the distal fracture fragment. There may be some minimal callus formation since prior examination. IMPRESSION: Comminuted impacted fracture distal right radius as described. Dictated by: Dictated on workstation # [id number]
== END ==
LOC: RAD 10:35
PROVIDERS: ATTEND Family Medicine
DX: S62.101A Fracture of unspecified carpal bone, right wrist, initial encounter for closed fracture (principal); X58.XXXA Exposure to other specified factors, initial encounter
CPT/HCPCS: 73110

== ENCOUNTER → 2021-08-25 | Outpatient (CLI) | payer MEDICARE, MEDICAID ==
[~2021-08-25] MED LIST changes: -FLUO20CA46 PO; +FLUO20CA48 PO; +FLUV100T21 PO; -FLUV100T3 PO; -LEVO500T80 PO; +LEVO500T81 PO; +MIRT-68 PO; -MIRT15TA6 PO; +MONT-40 PO; -MONT10TA32 PO; -POTA99TA21 PO; +POTA99TA26 PO; -SULF1TAB35 PO
--- NOTE | 2021-08-26 12:50 | Diagnostic Imaging Report ---
INDICATION: Routine screening. COMPARISON: 08/03/2018 and 06/08/2017. TECHNIQUE: 2D and 3D bilateral screening mammography was performed with CAD. FINDINGS: Scattered fibroglandular densities are identified bilaterally. The parenchymal pattern is stable. No mass or malignant-appearing microcalcifications are seen. The axillae are unremarkable. IMPRESSION: No mammographic features suspicious for malignancy are identified. ACR BI-RADS Category 1: Negative. Result letter will be mailed to the patient. Note: At least 10% of breast cancer is not imaged by mammography. Dictated by: Dictated on workstation # [id number]
== END ==
LOC: RAD 15:16
PROVIDERS: ATTEND Family Medicine
DX: Z12.31 Encounter for screening mammogram for malignant neoplasm of breast (principal)
CPT/HCPCS: 77063; 77067

== ENCOUNTER 2021-12-04 11:00 | Outpatient (RCR) | payer MEDICARE, MEDICAID ==
[2021-12-03 15:46] LABS: ABSOLUTE RETIC # 89 10e9/uL (24-90); BASOPHILS % (AUTO) 0 % (0-10); EOSINOPHILS % (AUTO) 0 % (0-10); HEMATOCRIT 29 % (35-52); HEMOGLOBIN 7.7 g/dL (11.5-16.0); LYMPHOCYTES % (AUTO) 7 % (12-44); MEAN CORPUSCULAR HEMOGLOBIN 24 pg (25-34); MEAN CORPUSCULAR HGB CONC 27 g/dL (32-36); MEAN CORPUSCULAR VOLUME 87 fL (80-99); MEAN PLATELET VOLUME 10.4 fL (9.0-12.2); MONOCYTES # (AUTO) 0.4 10^3/uL (0.0-1.0); MONOCYTES % (AUTO) 3 % (0-12); NEUTROPHILS # (AUTO) 13.2 10^3/uL (1.8-7.8); NEUTROPHILS % (AUTO) 90 % (42-75); PLATELET COUNT 431 10^3/uL (130-400); RETICULOCYTE % 2.71 % (0.50-2.40); WHITE BLOOD COUNT 14.6 10^3/uL (4.3-11.0)
[2021-12-03 15:54] LABS: ANISOCYTOSIS MARKED; BAND NEUTROPHILS 0 %; BASOPHILS % (MANUAL) 0 %; EOSINOPHILS % (MANUAL) 0 %; LYMPHOCYTES % (MANUAL) 5 %; MONOCYTES % (MANUAL) 2 %; NEUTROPHILS % (MANUAL) 93 %; POLYCHROMASIA MODERATE
== END 2021-12-18 | disposition home or self-care (01) ==
LOC: LAB 11:00
PROVIDERS: ATTEND Family Medicine
DX: D64.9 Anemia, unspecified (principal)
CPT/HCPCS: 36415; 82274; 82728; 85007; 85027; 85045; 85055

== ENCOUNTER 2021-12-17 05:31 | Outpatient (CLI) | payer MEDICARE, MEDICAID ==
[~2021-12-17] VITALS: Ht 149.9 cm; Wt 108.4 kg
== END 2021-12-17 13:11 ==
LOC: PREOP 05:31
PROVIDERS: ATTEND Surgery
DX: Z01.818 Encounter for other preprocedural examination (principal)

== ENCOUNTER 2021-12-22 11:25 | Day surgery (SDC) | payer MEDICARE, MEDICAID ==
[~2021-12-22] VITALS: Ht 150 cm; Wt 108.4 kg
[~2021-12-22 11:25] MED LIST changes: +BENR30SY SQ; +ESTR10TA9 PO; +FLUC150T PO; +FLUT12AE2 IH; +METO50TA7 PO; +NF-NORETH5 PO; +PROM25PO PO; +SEMA0.25 SQ
[2021-12-22] MEDS ORDERED: LACTATED RINGERS 1,000 ML IV ONE (11:30)
[2021-12-22] MEDS ORDERED: LACTATED RINGERS 1,000 ML IV STA (11:34)
[2021-12-22 11:40] VITALS: BP 98/72
[2021-12-22] MEDS ORDERED: HURRICAINE EXT TUBE (BENZOCAINE) XX PRN (11:45)
--- NOTE | 2021-12-22 11:48 | Progress Note-Pre Operative ---
Pre-Operative Progress Note H&P Reviewed The H&P was reviewed, patient examined and no changes noted. Time Seen by Provider: 11:46 Date H&P Reviewed: Dec 22, 2021 Time H&P Reviewed: 11:46 Pre-Operative Diagnosis: anemia, Hemoptysis, +Hemoccult KIRSTIE ARTHUR DO Dec 22, 2021 11:48
[2021-12-22] MEDS ORDERED: PROPOFOL INJECTION 50 ML IV ONE ×4 (14:22→15:27)
[2021-12-22] MEDS ORDERED: MIDAZOLAM 2 MG/2 ML (VERSED) VIAL ONE (14:22)
[2021-12-22 15:45] VITALS: BP 118/53
--- NOTE | 2021-12-22 15:50 | Progress Note-Post Operative ---
Post-Operative Progess Note Surgeon (s)/Liquefied Natural Gas Operator (s) Surgeon KIRSTIE ARTHUR DO Liquefied Natural Gas Operator: Ronnie Drake, MSIII Pre-Operative Diagnosis anemia, Hemoptysis, +Hemoccult Post-Operative Diagnosis Gastritis hiatal hernia polyps diverticula internal hemorrhoids Procedure & Operative Findings Date of Procedure 12/22/21 Procedure Performed/Findings EGD with Bx Colonoscopy with snare PROCEDURE NOTE: After informed consent was obtained, the patient was brought to the endoscopy suite, placed in bed in left lateral decubitus position. She was administered IV sedation by the CYLINDER BLOCK HOLE RELINER who then monitored vitals the entire time, heart rate, blood pressure and pulse ox and the scope was inserted down the mouth through the esophagus into the stomach. On the way down, noted some mild esophagitis, took a picture, pushed into the stomach, pushed past the antrum into the duodenum. Duodenum looked good. Pulled back and did a biopsy of antrum, then retroflexed the scope, saw small hiatal hernia, took a picture of this and then pulled the scope into the GE junction, took another picture of the esophagitis and then did a biopsy of the GE junction. Pushed the scope back into the stomach, suctioned all the air out of the stomach. At this point pulled the scope up the esophagus and out the mouth. Switched camera, switched gloves, went down below and started the colonoscopy. Pushed all the way in, to about 140 cm to get all the way to cecum. Took a picture of the appendiceal orifice, noted the ileocecal valve and then slowly withdrew the scope, insufflating to look circum- ferentially at the uriarte starting in the cecum and up the ascending colon. Found three polyps here and able to suction them up after doing a snare polypectomy. Then in the transerse colon found five polyps here, 3 to large to suction up and did snare polypectomy on them. Then used the Coles net to gather all of them up and pulled the scope completely out. Pushed back in to the same spot, then resumed looking at the colon down the remainder of transverse colon; where I found 2 more polyps removed with snare. Then down to the splenic flexure and into the descending colon where I foiund 2 very large polyps and had to use the Coles net again, removed the scope completely. Finally down into the sigmoid, found 2 more polyps I was able to snare and suction through scope. Lastly into the rectum, retroflexed in the rectal vault, saw some minimal internal hemorrhoids and took a picture of this. The patient tolerated the procedure and he recovered in the endoscopy suite. Anesthesia Type IV sedation by CYLINDER BLOCK HOLE RELINER Estimated Blood Loss Estimated blood loss (mL): scant Specimens/Packing Specimens Removed antral bx GE jxn bx Asc colon x 3 transverse colon x 5 desc colon x 2 sigmoid x 2 KIRSTIE ARTHUR DO Dec 22, 2021 15:50
--- NOTE | 2021-12-22 15:56 | Endoscopy Discharge Instruct ---
Endo Procedure/Findings Findings 1.: Hiatal Hernia, Gastritis 2.: Polyp 3.: Diverticulosis 4.: Internal Hemorrhoids Discharge Instructions - Activity: You might feel a little sleepy until tomorrow. This is due to the medicine you received to relax you. Until tomorrow, you should: NOT drive a car, operate machinery or power tools. NOT drink any alcoholic beverages. NOT make any important decisions or sign importortant papers. Do not return to work until tomorrow, unless otherwise instructed. Resume previous activities tomorrow. Diet: Start by taking liquids. If you tolerate liquids, advance to solid food. 1.: EGD in 3 years 2.: Colonoscopy in 1 year Notify Physician - If you experience excessive bleeding, unusual abdominal pain, fever, or chest pain, contact your doctor immediately. KIRSTIE ARTHUR DO Dec 22, 2021 15:56
[2021-12-22 16:10] VITALS: BP 117/71
[2021-12-22 16:19] VITALS: BP 117/71
--- NOTE | 2021-12-22 17:42 | Anesthesia-General Post-Op ---
MAC Patient Condition Mental Status/LOC: Same as Preop Cardiovascular: Satisfactory Nausea/Vomiting: Absent Respiratory: Satisfactory Pain: Controlled Complications: Absent Post Op Complications Complications None Follow Up Care/Instructions Patient Instructions None needed. Anesthesiology Discharge Order Discharge Order Patient is doing well, no complaints, stable vital signs, no apparent adverse anesthesia problems. No complications reported per nursing. JOANN WILSON CRNA Dec 22, 2021 17:42
== END 2021-12-22 16:18 | disposition home or self-care (01) ==
LOC: ENDO 11:25
PROVIDERS: ATTEND Surgery
DX: D12.5 Benign neoplasm of sigmoid colon (principal); K44.9 Diaphragmatic hernia without obstruction or gangrene; D12.2 Benign neoplasm of ascending colon; D12.3 Benign neoplasm of transverse colon; D12.4 Benign neoplasm of descending colon; K29.50 Unspecified chronic gastritis without bleeding; K21.00 Gastro-esophageal reflux disease with esophagitis, without bleeding; K64.8 Other hemorrhoids; D64.9 Anemia, unspecified; E11.9 Type 2 diabetes mellitus without complications; K57.30 Diverticulosis of large intestine without perforation or abscess without bleeding; J44.9 Chronic obstructive pulmonary disease, unspecified; G47.33 Obstructive sleep apnea (adult) (pediatric); E66.01 Morbid (severe) obesity due to excess calories; Z68.42 Body mass index [BMI] 45.0-49.9, adult; Z87.891 Personal history of nicotine dependence; Z79.52 Long term (current) use of systemic steroids; Z79.899 Other long term (current) drug therapy; Z79.4 Long term (current) use of insulin; Z79.84 Long term (current) use of oral hypoglycemic drugs; Z99.81 Dependence on supplemental oxygen
CPT/HCPCS: 88305

== ENCOUNTER → 2022-02-27 | Outpatient (CLI) | payer MEDICARE, MEDICAID ==
--- NOTE | 2022-02-27 11:18 | Diagnostic Imaging Report ---
PROCEDURE: Pelvic comp/transvaginal sonogram. TECHNIQUE: Complete transabdominal and transvaginal pelvic ultrasound was performed. In addition, limited pelvic Doppler was performed. INDICATION: Postmenopausal bleeding. CORRELATION is made with prior ultrasound from 06/08/2017. FINDINGS: The uterus is anteverted measuring 6.3 x 3.3 x 3.6 cm. There appears to be a fibroid in the anterior uterus approximately 2 cm in size. The endometrium is approximately 6 mm in thickness. The ovaries could not be visualized. No adnexal mass or free fluid is seen. There does appear to be a small amount of fluid in the endocervical canal. IMPRESSION: 1. There is a 2 cm uterine fibroid. 2. Fluid within the endocervical canal. 3. Nonvisualized ovaries. Dictated by: Dictated on workstation # [id number]
== END ==
LOC: RAD 10:00
PROVIDERS: ATTEND Family Medicine
DX: D25.9 Leiomyoma of uterus, unspecified (principal); N95.0 Postmenopausal bleeding
CPT/HCPCS: 76830; 76856

== ENCOUNTER → 2022-03-18 | Outpatient (CLI) | payer MEDICARE, MEDICAID | LOC: LAB 12:36 | PROVIDERS: ATTEND Family Medicine | DX: J44.9 Chronic obstructive pulmonary disease, unspecified (principal); E78.5 Hyperlipidemia, unspecified; E66.9 Obesity, unspecified; E11.9 Type 2 diabetes mellitus without complications; M19.90 Unspecified osteoarthritis, unspecified site ==

== ENCOUNTER 2022-10-29 13:29 | Emergency (ER) | payer OTHER, MEDICAID ==
[~2022-10-29] VITALS: Ht 149.9 cm; Wt 96.2 kg
[~2022-10-29 13:29] MED LIST changes: +ALBU8.5H6 INH; +LEVO-55 PO; -LEVO500T81 PO; -RT-ALBUINH INH
[2022-10-29] MEDS ORDERED: HYDROcodone/APAP 5 MG/325 MG (LORTAB) TAB PO ONE (14:15)
--- NOTE | 2022-10-29 14:32 | Diagnostic Imaging Report ---
INDICATION: Fall, with right arm injury and pain. FINDINGS: AP and lateral views of the right forearm are obtained. There is old fracture deformity involving the distal radial metaphysis; however, no acute fracture is seen. There may be post-traumatic arthritis of the wrist which is incompletely included on this study. IMPRESSION: Old distal radial fracture without acute right forearm abnormality seen. Dictated by: Dictated on workstation # [id number]
--- NOTE | 2022-10-29 14:34 | Diagnostic Imaging Report ---
INDICATION: Fall with right shoulder pain. AP, oblique, and transscapular views of the right shoulder are obtained. There is an acute femoral neck fracture with mild impaction. Glenohumeral joint shows no dislocation. There is mild degenerative change of the AC joint. IMPRESSION: Partially impacted humeral neck fracture with no dislocation. Underlying degenerative change. Dictated by: Dictated on workstation # [id number]
--- NOTE | 2022-10-29 14:52 | ED Upper Extremity ---
General Chief Complaint: Upper Extremity Stated Complaint: RT SHOULDER INJ | FALL AT HOME Nursing Triage Note: PT AMB TO ED BY POV WITH C/O R SHOULDER INJURY. 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 REPORTS FEELING A POP AND GRINDING. Source: patient Exam Limitations: no limitations History of Present Illness Date Seen by Provider: Oct 29, 2022 Time Seen by Provider: 13:50 Allergies and Home Medications Allergies Coded Allergies: codeine (Verified Allergy, Intermediate, hives, 05/14/16) Patient Home Medication List Albuterol Sulfate (Ventolin Hfa) 8.5 Gm Hfa.aer.ad, 2 PUFF INH Q4H PRN for SHORTNESS OF BREATH, (Reported) Entered as Reported by: VINCENT PANDA on 07/15/15 1141 Albuterol/Ipratropium (Duoneb Rt) 3 Ml Nebu, 3 ML NEB QID PRN for SHORTNESS OF BREATH, (Reported) Entered as Reported by: VINCENT PANDA on 03/21/14 0806 Benralizumab (Fasenra) 30 Mg/1 Ml Syringe, 30 MG SQ UD, (Reported) Entered as Reported by: GABRIELLE FLORES on 12/22/21 1113 Empagliflozin (Jardiance) 10 Mg Tablet, 10 MG PO DAILY, (Reported) Entered as Reported by: BENTON GARCIA on 11/11/16 1353 Estradiol (Estradiol) 10 Mcg Tablet, 10 MCG PO, (Reported) Entered as Reported by: GABRIELLE FLORES on 12/22/21 1113 Fluconazole (Diflucan) 150 Mg Tablet, 150 MG PO UD, (Reported) Entered as Reported by: GABRIELLE FLORES on 12/22/21 1113 Fluticasone/Salmeterol (Advair Hfa 45-21 Mcg Inhaler) 12 Gm Hfa.aer.ad, 12 GM IH DAILY, (Reported) Entered as Reported by: GABRIELLE FLORES on 12/22/21 1113 Fluvoxamine Maleate (Fluvoxamine Maleate) 100 Mg Tablet, 150 MG PO BID, (Reported) Entered as Reported by: VINCENT PANDA on 04/05/17 0859 Gabapentin (Gabapentin) 600 Mg Tablet, 600 MG PO TID, (Reported) Entered as Reported by: BENTON GARCIA on 11/11/16 1353 Hydrochlorothiazide (Hydrochlorothiazide) 25 Mg Tablet, 25 MG PO DAILY, (Reported) Entered as Reported by: NURY REED on 07/14/151918 Hydrocodone/Acetaminophen (Hydrocodone-Acetamin 5-325 mg) 1 Each Tablet, 1 TAB PO Q4H PRN for PAIN-MODERATE (5-7) Prescribed by: KELLIE FAY on 11/21/20 1109 Insulin Aspart (Novolog Flexpen) 300 Units/3 Ml Solution, SQ AC, (Reported) Entered as Reported by: ULISES MURGUIA on 11/29/15 1324 Insulin Degludec (Tresiba Flextouch U-100) 100 Unit/1 Ml Insuln.pen, 12-13 UNITS SC DAILY, (Reported) Entered as Reported by: VINCENT PANDA on 04/05/17 0859 Loratadine (Loratadine) 10 Mg Tablet, 10 MG PO DAILY, (Reported) Entered as Reported by: GABRIELLE FLORES on 12/22/21 111 Metformin HCl (Metformin HCl) 500 Mg Tablet, 1,000 MG PO BID, (Reported) Entered as Reported by: VINCENT PANDA on 10/03/15 1027 Metoprolol Succinate (Metoprolol Succinate) 50 Mg Tab.er.24h, 50 MG PO DAILY, (Reported) Entered as Reported by: GABRIELLE FLORES on 12/22/21 111 Mirtazapine (Mirtazapine) 15 Mg Tablet, 15 MG PO HS, (Reported) Entered as Reported by: VINCENT PANDA on 04/05/17 0859 Montelukast Sodium (Montelukast Sodium) 10 Mg Tablet, 10 MG PO DAILY, (Reported) Entered as Reported by: BENTON GARCIA on 11/11/16 1353 Norethindrone (Norethindrone Acetate) 5 Mg Tab, 5 MG PO DAILY, (Reported) Entered as Reported by: GABRIELLE FLORES on 12/22/21 111 Omeprazole (Omeprazole) 20 Mg Capsule.dr, 20 MG PO DAILY, (Reported) Entered as Reported by: NURY REED on 07/14/151918 Prednisone (Prednisone) 10 Mg Tab, 10 MG PO DAILY, (Reported) Entered as Reported by: BENTON GARCIA on 11/11/16 1353 Promethazine HCl (Promethazine HCl) 25 Gm Powder, 25 MG PO DAILY, (Reported) Entered as Reported by: GABRIELLE FLORES on 12/22/21 1113 Roflumilast (Daliresp) 500 Mcg Tablet, 500 MCG PO DAILY, (Reported) Entered as Reported by: GABRIELLE FLROES on 12/22/21 1113 Rosuvastatin Calcium (Crestor) 20 Mg Tablet, 20 MG PO DAILY Prescribed by: TEMITOPE GARCIA on 04/07/17 0805 Semaglutide (Ozempic) 0.25 Mg/0.2 Ml Pen.injctr, 0.25 MG SQ WEEK, (Reported) Entered as Reported by: GABRIELLE FLORES on 12/22/21 111 Tiotropium [place] (Spiriva Respimat 2.5MCG/ACTUATION) 4 Gm Mist.inhal, 1 PUFF IH DAILY, (Reported) Entered as Reported by: BENTON GARCIA on 11/11/16 1353 Past Oujbahg-Cqjxwu-Vnduzh Hx Patient Social History Tobacco Use?: No Use of E-Cig and/or Vaping dev: No Substance use?: No Alcohol Use?: No Pt feels they are or have been: No Immunizations Up To Date Tetanus Booster (TDap): Unknown PED Vaccines UTD: No Influenza Vaccine Up-to-Date: Yes; Up-to-Date First/Initial COVID19 Vaccinat: X4 Second COVID19 Vaccination Cruzito: X4 Third COVID19 Vaccination Date: X4 Seasonal Allergies Seasonal Allergies: No Past Medical History Surgery/Hospitalization HX: COPD, DM2 KIA[facility], C SECT X 2, TUBAL Surgeries: Yes (LEFT EYE--LASER REPAIR OF DETACHED RETINA) Section, Eye Surgery, Gallbladder, Tubal Ligation Respiratory: Yes (HOME O2-CHRONIC RESPIRATORY FAILURE, NO VENTILATOR--PER PT) Asthma, Pneumonia, Chronic Bronchitis, Sleep Apnea, COPD, Emphysema Currently Using CPAP: Yes Currently Using BIPAP: No Cardiac: Yes Hypertension Neurological: No Reproductive Disorders: No 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 Disorders: Denies [employer] History: Menopausal Sexually Transmitted Disease: Yes (HERPES) HIV/AIDS: No Gastrointestinal: Yes Gastroesophageal Reflux, Gall Bladder Disease Musculoskeletal: Yes (SHOULDER PAIN ) Fibromyalgia, Fractures Endocrine: Yes (OBESITY) Diabetes, Insulin dep Loss of Vision: Denies Hearing Impairment: Denies Cancer: No Psychosocial: Yes Anxiety, Depression Integumentary: Yes (RASHES, abd folds and beneath her breast bilaterally red) Recent Skin Changes, Herpes Blood Disorders: No Adverse Reaction/Blood Tranf: No Family Medical History CHF grandmother Diabetes mellitus grandmother FH: CHF (congestive heart failure) History of - respiratory disease 03 FATHER (COPD) Physical Exam Vital Signs Vital Signs - First Documented 10/29/22 13:33 Temp 37.0 Pulse 98 Resp 20 B/P (MAP) 97/66 (76) Pulse Ox 95 O2 Delivery Nasal Cannula O2 Flow Rate 4.00 Capillary Refill : Less Than 3 Seconds Height, Weight, BMI Height: 5'5.00" Weight: 227lbs. 0.4oz. 90.633978cy; 42.00 BMI Method:Estimated Progress/Results/Core Measures Results/Orders My Orders Orders - KELLIE QUINTERO MD Hydrocodone/Apap 5/325 Tablet (Lortab 5 (10/29/22 14:15) Shoulder, Right, 3 Views (10/29/22 14:01) Forearm, Right, 2 Views (10/29/22 14:01) Oxycodone/Apap 5/325mg Tablet (Percocet (10/29/22 15:00) Medications Given in ED Current Medications Medications Dose Ordered Sig/[place] Route Start Time Stop Time Status Last Admin Dose Admin Acetaminophen/ Hydrocodone Bitart 1 ea ONCE ONCE PO 10/29/22 14:15 10/29/22 14:16 DC 10/29/22 14:06 1 EA Vital Signs/I&O 10/29/22 13:33 Temp 37.0 Pulse 98 Resp 20 B/P (MAP) 97/66 (76) Pulse Ox 95 O2 Delivery Nasal Cannula O2 Flow Rate 4.00 Blood Pressure Mean: 76 Departure Impression Primary Impression: Right humeral fracture Qualified Codes: S42.291A - Other displaced fracture of upper end of right humerus, initial encounter for closed fracture Additional Impressions: Fall on same level from tripping Right forearm pain Disposition: 01 HOME, SELF-CARE Condition: Stable Departure-Patient Inst. Decision time for Depature: 15:03 Referrals: TEMITOPE GARCIA DO (PCP/Family) Primary Care Physician JOANN KEARNS MD, MICHAEL P MD Patient Instructions: How to Use a Shoulder Sling, Shoulder Fracture Add. Discharge Instructions: Keep your arm in the sling as much as possible. Use Percocet as prescribed for pain. Percocet may cause constipation, so you may wish to use a stool softener such as Colace while on Percocet. Use with caution as Percocet may cause drowsiness, confusion, and decreased respiratory drive. Icing and 20-minute intervals may also help with pain and swelling. Follow-up with orthopedic provider of your choice as soon as possible. Please call this afternoon to make an appointment. The [place] orthopedic providers are listed below. You may alternatively use Dr. Rome and Tomas since you have a prior doctor-patient relationship with him. Return to care if you have worsening or uncontrolled symptoms despite following these instructions. All discharge instructions reviewed with patient and/or family. Voiced understanding. Scripts Oxycodone HCl/Acetaminophen (Percocet 5-325 mg Tablet) 1 Each Tablet 1-2 TAB PO Q4H for PAIN-MODERATE MDD 6 TABS, #30 TAB Prov: KELLIE QUINTERO MD 10/29/22 KELLIE QUINTERO MD Oct 29, 2022 14:52
[2022-10-29] MEDS ORDERED: oxyCODONE/APAP 5/325MG (PERCOCET 5) TABLET PO ONE (15:00)
[2022-10-29] MEDS ORDERED: OXYC1TAB87 PO ×3 (15:06→15:10)
[2022-10-29 15:37] VITALS: BP 102/60
== END 2022-10-29 15:37 | disposition home or self-care (01) ==
LOC: EDUNIT# 13:29 → ER 13:31
DX: S42.301A Unspecified fracture of shaft of humerus, right arm, initial encounter for closed fracture (principal); J43.9 Emphysema, unspecified; G47.30 Sleep apnea, unspecified; E66.9 Obesity, unspecified; Z99.89 Dependence on other enabling machines and devices; Z99.81 Dependence on supplemental oxygen; Z68.41 Body mass index [BMI] 40.0-44.9, adult; W01.0XXA Fall on same level from slipping, tripping and stumbling without subsequent striking against object, initial encounter; Y92.009 Unspecified place in unspecified non-institutional (private) residence as the place of occurrence of the external cause
CPT/HCPCS: 73030; 73090

== ENCOUNTER 2023-04-18 13:22 | Emergency (ER) | payer OTHER, MEDICAID ==
[~2023-04-18] VITALS: Ht 149.9 cm; Wt 94.3 kg
[~2023-04-18 13:22] MED LIST changes: +POTA-185 PO; -POTA10TA PO
[2023-04-18 14:08] LABS: BASOPHILS % (AUTO) 0 % (0-10)
[2023-04-18 14:10] LABS: EOSINOPHILS % (AUTO) 0 % (0-10); HEMATOCRIT 42 % (35-52); HEMOGLOBIN 12.8 g/dL (11.5-16.0); LYMPHOCYTES # (AUTO) 0.9 10^3/uL (1.0-4.0); LYMPHOCYTES % (AUTO) 5 % (12-44); MEAN CORPUSCULAR HEMOGLOBIN 30 pg (25-34); MEAN CORPUSCULAR HGB CONC 31 g/dL (32-36); MEAN CORPUSCULAR VOLUME 99 fL (80-99); MONOCYTES # (AUTO) 0.4 10^3/uL (0.0-1.0); MONOCYTES % (AUTO) 2 % (0-12); NEUTROPHILS # (AUTO) 16.1 10^3/uL (1.8-7.8); NEUTROPHILS % (AUTO) 92 % (42-75); PLATELET COUNT 366 10^3/uL (130-400); WHITE BLOOD COUNT 17.5 10^3/uL (4.3-11.0)
[2023-04-18 14:13] LABS: ALBUMIN 4.4 GM/DL (3.2-4.5); POTASSIUM 4.3 MMOL/L (3.6-5.0)
[2023-04-18 14:14] LABS: CALCIUM 9.5 MG/DL (8.5-10.1)
[2023-04-18 14:16] LABS: TOTAL PROTEIN 7.6 GM/DL (6.4-8.2)
[2023-04-18 14:17] LABS: BILIRUBIN,TOTAL 0.2 MG/DL (0.1-1.0)
[2023-04-18 14:19] LABS: CREATININE SERUM 1.06 MG/DL (0.60-1.30)
--- NOTE | 2023-04-18 14:21 | ED Chest Pain ---
General Chief Complaint: Respiratory Problems Stated Complaint: SOA Nursing Triage Note: PT AMBULATE TO ROOM 03 WITH C/O INCREASING SOB. PT REPORTS INCREASING COUGH. PT REPORTS WEARING HOME O2 AT 4LPM. PT STATES HER O2 WAS 67% THIS MORNING AND HAS BEEN INCREASING THROUGHOUT THE DAY. Source: patient, old records Exam Limitations: no limitations (KELLIE QUINTERO MD) History of Present Illness Date Seen by Provider: Apr 18, 2023 Time Seen by Provider: 13:44 (KELLIE QUINTERO MD) Initial Comments This is a 52 year old female with a history of COPD who presented to the ED due to SOA. The patient states that she woke this morning and attempted to walk to the bathroom and become immediately SOA. She states that she wears 4L oxygen at home. Took her O2 stat this morning and reported the lowest as 67% with supplemental O2. States that she would walk room to room and have to stop, sit and catch her breath. She states that she used her albuterol nebulizer around 1:30pm today without relief and she started coughing green phlegm. Patient repor ts she also took three 10mg tablets of Prednisone earlier today. Patient also reports an episode of chest pain a few days ago, but took aspirin and it went away. Patient uses Advair and Spiriva for her COPD, but hasn't used those today. Upon exam, patient reports she is feeling better because she has been sitting for a while. Denies fevers, sick contacts, dizziness. (LEA SHAH) Allergies and Home Medications Allergies Coded Allergies: codeine (Verified Allergy, Intermediate, hives, 05/14/16) Patient Home Medication List Albuterol Sulfate (Ventolin Hfa) 8.5 Gm Hfa.aer.ad, 2 PUFF INH Q4H PRN for SHORTNESS OF BREATH, (Reported) Entered as Reported by: VICNENT PANDA on 07/15/15 1141 Albuterol/Ipratropium (Duoneb Rt) 3 Ml Nebu, 3 ML NEB QID PRN for SHORTNESS OF BREATH, (Reported) Entered as Reported by: VINCENT PANDA on 03/21/14 0806 Benralizumab (Fasenra) 30 Mg/1 Ml Syringe, 30 MG SQ UD, (Reported) Entered as Reported by: GABRIELLE FLORES on 12/22/21 1113 Empagliflozin (Jardiance) 10 Mg Tablet, 10 MG PO DAILY, (Reported) Entered as Reported by: BENTON GARCIA on 11/11/16 1353 Estradiol (Estradiol) 10 Mcg Tablet, 10 MCG PO, (Reported) Entered as Reported by: GABRIELLE FLORES on 12/22/21 111 Fluconazole (Diflucan) 150 Mg Tablet, 150 MG PO UD, (Reported) Entered as Reported by: GABRIELLE FLORES on 12/22/21 111 Fluticasone/Salmeterol (Advair Hfa 45-21 Mcg Inhaler) 12 Gm Hfa.aer.ad, 12 GM IH DAILY, (Reported) Entered as Reported by: GABRIELLE FLORES on 12/22/21 111 Fluvoxamine Maleate (Fluvoxamine Maleate) 100 Mg Tablet, 150 MG PO BID, (Reported) Entered as Reported by: VINCENT PANDA on 04/05/17 0859 Gabapentin (Gabapentin) 600 Mg Tablet, 600 MG PO TID, (Reported) Entered as Reported by: BENTON GARCIA on 11/11/16 1353 Hydrochlorothiazide (Hydrochlorothiazide) 25 Mg Tablet, 25 MG PO DAILY, (Reported) Entered as Reported by: NURY REED on 07/14/15 191 Hydrocodone/Acetaminophen (Hydrocodone-Acetamin 5-325 mg) 1 Each Tablet, 1 TAB PO Q4H PRN for PAIN-MODERATE (5-7) Prescribed by: KELLIE FAY on 11/21/20 1109 Insulin Aspart (Novolog Flexpen) 300 Units/3 Ml Solution, SQ AC, (Reported) Entered as Reported by: ULISES MURGUIA on 11/29/15 1324 Insulin Degludec (Tresiba Flextouch U-100) 100 Unit/1 Ml Insuln.pen, 12-13 UNITS SC DAILY, (Reported) Entered as Reported by: VINCENT PANDA on 04/05/17 0859 Loratadine (Loratadine) 10 Mg Tablet, 10 MG PO DAILY, (Reported) Entered as Reported by: GABRIELLE FLORES on 12/22/21 111 Metformin HCl (Metformin HCl) 500 Mg Tablet, 1,000 MG PO BID, (Reported) Entered as Reported by: VINCENT PANDA on 10/03/15 1027 Metoprolol Succinate (Metoprolol Succinate) 50 Mg Tab.er.24h, 50 MG PO DAILY, (Reported) Entered as Reported by: GABRIELLE FLORES on 12/22/21 111 Mirtazapine (Mirtazapine) 15 Mg Tablet, 15 MG PO HS, (Reported) Entered as Reported by: VINCENT PANDA on 04/05/17 0859 Montelukast Sodium (Montelukast Sodium) 10 Mg Tablet, 10 MG PO DAILY, (Reported) Entered as Reported by: BENTON GARCIA on 11/11/16 135 Norethindrone (Norethindrone Acetate) 5 Mg Tab, 5 MG PO DAILY, (Reported) Entered as Reported by: GABRIELLE FLORES on 12/22/21 111 Omeprazole (Omeprazole) 20 Mg Capsule.dr, 20 MG PO DAILY, (Reported) Entered as Reported by: NURY REED on 07/14/15 1919 Oxycodone HCl/Acetaminophen (Percocet 5-325 mg Tablet) 1 Each Tablet, 1-2 TAB PO Q4H Prescribed by: KELLIE FAY on 10/29/22 1511 Prednisone (Prednisone) 10 Mg Tab, 10 MG PO DAILY, (Reported) Entered as Reported by: BENTON GARCIA on 11/11/16 135 Promethazine HCl (Promethazine HCl) 25 Gm Powder, 25 MG PO DAILY, (Reported) Entered as Reported by: GABRIELLE FLORES on 12/22/21 111 Roflumilast (Daliresp) 500 Mcg Tablet, 500 MCG PO DAILY, (Reported) Entered as Reported by: GABRIELLE FLORES on 12/22/21 111 Rosuvastatin Calcium (Crestor) 20 Mg Tablet, 20 MG PO DAILY Prescribed by: TEMITOPE GARCIA on 04/07/17 0805 Semaglutide (Ozempic) 0.25 Mg/0.2 Ml Pen.injctr, 0.25 MG SQ WEEK, (Reported) Entered as Reported by: GABRIELLE FLORES on 12/22/21 111 Tiotropium [place] (Spiriva Respimat 2.5MCG/ACTUATION) 4 Gm Mist.inhal, 1 PUFF IH DAILY, (Reported) Entered as Reported by: BENTON GARCIA on 11/11/16 1353 Review of Systems Review of Systems Constitutional: no symptoms reported Respiratory: Cough, Shortness of Air, SOA With Exertion Cardiovascular: Chest Pain (few days ago) Gastrointestinal: No Symptoms Reported Genitourinary: No Symptoms Reported Skin: no symptoms reported (LEA SHAH) Past Lquneda-Zweizc-Prvcbz Hx Patient Social History Tobacco Use?: No Smoking Status: Former Smoker Smokeless Tobacco Frequency: Never a User Use of E-Cig and/or Vaping dev: No Use of E-Cig and/or Vaping [place]: Never a User Substance use?: No Alcohol Use?: No Pt feels they are or have been: No (KELLIE QUINTERO MD) Tobacco Use?: No Tobacco type used: Cigarettes Smoking Status: Former Smoker Alcohol Use?: No (LEA SHAH) Immunizations Up To Date Tetanus Booster (TDap): Unknown PED Vaccines UTD: No First/Initial COVID19 Vaccinat: X4 Second COVID19 Vaccination Cruzito: X4 Third COVID19 Vaccination Date: X4 (KELLIE QUINTERO MD) Seasonal Allergies Seasonal Allergies: No (KELLIE QUINTERO MD) Past Medical History Surgery/Hospitalization HX: COPD, DM2 KIA[facility], C SECT X 2, TUBAL Surgeries: Yes (LEFT EYE--LASER REPAIR OF DETACHED RETINA) Section, Eye Surgery, Gallbladder, Tubal Ligation Respiratory: Yes (HOME O2-CHRONIC RESPIRATORY FAILURE, NO VENTILATOR--PER PT) Asthma, Pneumonia, Chronic Bronchitis, Sleep Apnea, COPD, Emphysema Currently Using CPAP: Yes Currently Using BIPAP: No Cardiac: Yes Hypertension Neurological: No Reproductive Disorders: No 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 Sexually Transmitted Disease: Yes (HERPES) HIV/AIDS: No Gastrointestinal: Yes Gastroesophageal Reflux, Gall Bladder Disease Musculoskeletal: Yes (SHOULDER PAIN ) Fibromyalgia, Fractures Endocrine: Yes (OBESITY) Diabetes, Insulin dep Loss of Vision: Denies Hearing Impairment: Denies Cancer: No Psychosocial: Yes Anxiety, Depression Integumentary: Yes (RASHES, abd folds and beneath her breast bilaterally red) Recent Skin Changes, Herpes Blood Disorders: No Adverse Reaction/Blood Tranf: No (KELLIE QUINTERO MD) Family Medical History CHF grandmother Diabetes mellitus grandmother FH: CHF (congestive heart failure) History of - respiratory disease 03 FATHER (COPD) Physical Exam Vital Signs Vital Signs - First Documented 04/18/23 13:36 Temp 36.6 Pulse 108 Resp 21 B/P (MAP) 138/87 (104) Pulse Ox 95 O2 Delivery Nasal Cannula O2 Flow Rate 6.00 (LEA SHAH) Vital Signs Capillary Refill : Less Than 3 Seconds (KELLIE QUINTERO MD) Height, Weight, BMI Height: 5'5.00" Weight: 227lbs. 0.4oz. 90.869083zf; 41.00 BMI Method:Estimated (KELLIE QUINTERO MD) HEENT: Moist Mucous Membranes Respiratory: No Accessory Muscle Use, Crackles, Wheezing Cardiovascular: Regular Rate, Rhythm Gastrointestinal: Normal Bowel Sounds Rectal: Deferred Extremity: Normal Capillary Refill Neurologic/Psychiatric: Alert, Oriented x3 Skin: Warm/Dry (LEA SHAH) Progress/Results/Core Measures Results/Orders Lab Results Laboratory Tests Test 04/18/23 00:00 04/18/23 13:41 04/18/23 14:19 Range/Units White Blood Count 17.5 H 4.3-11.0 10^3/uL Red Blood Count 4.22 3.80-5.11 10^6/uL Hemoglobin 12.8 11.5-16.0 g/dL Hematocrit 42 35-52 % Mean Corpuscular Volume 99 80-99 fL Mean Corpuscular Hemoglobin 30 25-34 pg Mean Corpuscular Hemoglobin Concent 31 L 32-36 g/dL Red Cell Distribution Width 12.9 10.0-14.5 % Platelet Count 366 130-400 10^3/uL Mean Platelet Volume 11.0 9.0-12.2 fL Immature Granulocyte % (Auto) 1 % Neutrophils (%) (Auto) 92 H 42-75 % Lymphocytes (%) (Auto) 5 L 12-44 % Monocytes (%) (Auto) 2 0-12 % Eosinophils (%) (Auto) 0 0-10 % Basophils (%) (Auto) 0 0-10 % Neutrophils # (Auto) 16.1 H 1.8-7.8 10^3/uL Lymphocytes # (Auto) 0.9 L 1.0-4.0 10^3/uL Monocytes # (Auto) 0.4 0.0-1.0 10^3/uL Eosinophils # (Auto) 0.0 0.0-0.3 10^3/uL Basophils # (Auto) 0.0 0.0-0.1 10^3/uL Immature Granulocyte # (Auto) 0.1 0.0-0.1 10^3/uL Neutrophils % (Manual) 95 % Lymphocytes % (Manual) 3 % Monocytes % (Manual) 2 % Eosinophils % (Manual) 0 % Basophils % (Manual) 0 % Band Neutrophils 0 % Percent Immature Platelet Fraction 3.8 0.0-7.6 % Blood Morphology Comment NORMAL Sodium Level 139 135-145 MMOL/L Potassium Level 4.3 3.6-5.0 MMOL/L Chloride Level 103 98-107 MMOL/L Carbon Dioxide Level 23 21-32 MMOL/L Anion Gap 13 5-14 MMOL/L Blood Urea Nitrogen 15 7-18 MG/DL Creatinine 1.06 0.60-1.30 MG/DL Estimat Glomerular Filtration Rate 64 BUN/Creatinine Ratio 14 Glucose Level 386 H 70-105 MG/DL Calcium Level 9.5 8.5-10.1 MG/DL Corrected Calcium 9.2 8.5-10.1 MG/DL Total Bilirubin 0.2 0.1-1.0 MG/DL Aspartate Amino Transf (AST/SGOT) 25 5-34 U/L Alanine Aminotransferase (ALT/SGPT) 23 0-55 U/L Alkaline Phosphatase 77 40-136 U/L C-Reactive Protein High Sensitivity 0.31 0.00-0.50 MG/DL B-Type Natriuretic Peptide 83.1 <100.0 PG/ML Total Protein 7.6 6.4-8.2 GM/DL Albumin 4.4 3.2-4.5 GM/DL Magnesium Level 2.4 1.6-2.4 MG/DL (LEA SHAH) Vital Signs/I&O 04/18/23 04/18/23 13:36 13:39 Temp 36.6 Pulse 108 Resp 21 B/P (MAP) 138/87 (104) Pulse Ox 95 O2 Delivery Nasal Cannula Nasal Cannula O2 Flow Rate 6.00 4.00 (LEA SHAH) Blood Pressure Mean: 104 Progress Progress Note #1: Time: 14:18 Progress Note I began working this case when chief complaint, nursing triage, and vital signs were reviewed at 1344. Lea Sinclair, PA student, interviewed and examined the patient at that time. Report was received at 1401. Initial orders were placed at that time. I presented to the room to personally interviewed and examined the patient at 1407. At that time patient added the complaint of intermittent chest pain a few days ago. She is not experiencing chest pain now. Chest pain orders were added. She does not appear to require any immediate treatment at this time. Remainder of treatment and work-up will depend daughter results of her current studies. Progress Note #2: Time: 14:58 Progress Note Labs have been reviewed and interpreted by me. They are grossly unremarkable with a few exceptions. CBC demonstrates a leukocytosis of 17.5. This may be related to her recent use of prednisone. CMP was unremarkable except for glucose of 386. Magnesium, troponin, myoglobin, and CRP were all normal. Chest x-ray was viewed by me. There were hazy interstitial lung [place] in the bases bilaterally on my interpretation. Radiologist's report was reviewed with suggestion of bronchiolitis/bronchitis with bronchial wall thickening. No focal infiltrates or consolidations were appreciated. D-dimer is pending. ECG was in terpreted by me as unremarkable with normal sinus rhythm and no ischemic changes. (KELLIE QUINTERO MD) Initial ECG Impression Date: Apr 18, 2023 Initial ECG Impression Time: 14:55 Initial ECG Rate: 94 Initial ECG Rhythm: Normal Sinus Initial ECG Intervals: Normal Initial ECG Impression: Normal Comment Normal sinus rhythm with no ST elevation or depression. No abnormal intervals or axis deviation. (KELLIE QUINTERO MD) Diagnostic Imaging Diagonstic Imaging: Xray Plain Films/CT/US/NM/MRI: chest Comments NAME: RICHA RUTHERFORD MED REC#: [id number] PT STATUS: REG ER : 1970 PHYSICIAN: KELLIE QUINTERO MD ADMIT DATE: 04/18/23/ER Draft Date of Exam:04/18/23 CHEST PA/LAT (2 VIEW) EXAMINATION: Chest 2 view HISTORY: Shortness of breath. COMPARISON: 08/05/2020. FINDINGS: The lung volumes are normal. Bronchial wall thickening is seen in the perihilar regions. No focal consolidation is seen. No large pleural effusion or pneumothorax is seen. The cardiomediastinal silhouette is normal in size and contour. No acute osseous abnormality is seen. IMPRESSION: 1. Bronchial wall thickening, suggestive of bronchitis/bronchiolitis. Dictated on workstation # [id number] Dict: 04/18/23 1429 Trans: 04/18/23 1434 CVB [id number] Interpreted by: RAMON RAHMAN DO (KELLIE QUINTERO MD) Departure Impression Primary Impression: Acute bronchitis Qualified Codes: J20.9 - Acute bronchitis, unspecified Additional Impressions: COPD exacerbation Atypical chest pain Disposition: HOME, SELF-CARE Condition: Improved Departure-Patient Inst. Decision time for Depature: 15:28 (KELLIE QUINTERO MD) Referrals: TEMITOPE GARCIA DO (PCP/Family) Primary Care Physician Patient Instructions: Acute bronchitis Add. Discharge Instructions: Fill your medications in the morning. Continue your breathing treatments as previously directed. If needed, you can take an additional 10 to 20 mg of prednisone at home this evening. Tomorrow take prednisone 30 mg. Take 30 mg daily for 2 days, then 20 mg daily for 3 days, then 10 mg daily for 3 days. Complete your antibiotics as prescribed. Follow-up with your primary care provider as soon as possible. Please call in the morning for an appointment. Return to the ER if you have worsening symptoms despite following these instructions. All discharge instructions reviewed with patient and/or family. Voiced understanding. Scripts Prednisone (Prednisone) 10 Mg Tab 1 TAB PO UD, #15 TAB Take 3 tablets daily for 2 days, then 2 tablets daily for 3 days, then 1 tablet daily for 3 days. Prov: KELLIE QUINTERO MD 04/18/23 Levofloxacin (Levofloxacin) 750 Mg Tablet 750 MG PO DAILY, #4 TAB Prov: KELLIE QUINTERO MD 04/18/23 KELLIE QUINTERO MD Apr 18, 2023 14:21 LEA SHAH Apr 18, 2023 14:38
[2023-04-18 14:31] LABS: BAND NEUTROPHILS 0 %; BASOPHILS % (MANUAL) 0 %; EOSINOPHILS % (MANUAL) 0 %; LYMPHOCYTES % (MANUAL) 3 %; MONOCYTES % (MANUAL) 2 %; NEUTROPHILS % (MANUAL) 95 %
[2023-04-18 14:32] LABS: RBC MORPH NORMAL
--- NOTE | 2023-04-18 14:34 | Diagnostic Imaging Report ---
EXAMINATION: Chest 2 view HISTORY: Shortness of breath. COMPARISON: 08/05/2020. FINDINGS: The lung volumes are normal. Bronchial wall thickening is seen in the perihilar regions. No focal consolidation is seen. No large pleural effusion or pneumothorax is seen. The cardiomediastinal silhouette is normal in size and contour. No acute osseous abnormality is seen. IMPRESSION: 1. Bronchial wall thickening, suggestive of bronchitis/bronchiolitis. Dictated by: Dictated on workstation # [id number]
[2023-04-18 14:37] LABS: MAGNESIUM 2.4 MG/DL (1.6-2.4)
[2023-04-18 15:14] LABS: FIBRIN DEGRADATION PRODUCTS < 0.27 UG/ML (0.00-0.49); INR 0.9 (0.8-1.4); PARTIAL THROMBOPLASTIN TIME 22 SEC (24-35); PROTHROMBIN TIME PATIENT 12.4 SEC (12.2-14.7)
[2023-04-18] MEDS ORDERED: LEVO750T PO (15:33)
[2023-04-18] MEDS ORDERED: PRD10T PO (15:33)
[2023-04-18 15:49] VITALS: BP 139/86
== END 2023-04-18 15:49 | disposition home or self-care (01) ==
LOC: EDUNIT# 13:22 → ER 13:24
DX: J20.9 Acute bronchitis, unspecified (principal); J44.0 Chronic obstructive pulmonary disease with (acute) lower respiratory infection; J44.1 Chronic obstructive pulmonary disease with (acute) exacerbation; G47.30 Sleep apnea, unspecified; E11.9 Type 2 diabetes mellitus without complications; E66.9 Obesity, unspecified; Z99.81 Dependence on supplemental oxygen; Z79.51 Long term (current) use of inhaled steroids; Z87.891 Personal history of nicotine dependence; Z99.89 Dependence on other enabling machines and devices; Z79.4 Long term (current) use of insulin; Z68.41 Body mass index [BMI] 40.0-44.9, adult
CPT/HCPCS: 36415; 71046; 80053; 83735; 83874; 83880; 84484; 85007; 85027; 85379; 85610; 85730; 86141; 93005; 93041

== ENCOUNTER 2023-05-05 06:20 | Outpatient (CLI) | payer OTHER, MEDICAID ==
[~2023-05-05 06:20] MED LIST changes: +LEVO750T PO
[2023-05-05] MEDS ORDERED: TIOT18CA2 IH (12:17)
[2023-05-05] MEDS ORDERED: MIRT-69 PO (12:17)
[2023-05-05] MEDS ORDERED: EMPA25TA PO (12:17)
[2023-05-05] MEDS ORDERED: ROSU40TA23 PO (12:17)
[2023-05-05] MEDS ORDERED: BENR30AU SQ (12:17)
[2023-05-05] MEDS ORDERED: OMEP40CA6 PO (12:17)
[2023-05-05] MEDS ORDERED: FLUO40CA PO (12:17)
[2023-05-05] MEDS ORDERED: FENO135C4 PO (12:17)
[2023-05-05] MEDS ORDERED: MTP25TSR PO (12:21)
[2023-05-05] MEDS ORDERED: ERGO1250 PO (13:07)
[2023-05-05] MEDS ORDERED: PROM25TA14 PO (13:07)
[2023-05-05] MEDS ORDERED: AZIT250T12 PO (13:07)
[2023-05-05] MEDS ORDERED: SEMA2PEN SQ (15:18)
== END 2023-05-05 15:21 | disposition home or self-care (01) ==
LOC: PREOP 06:20
PROVIDERS: ATTEND Surgery
DX: Z01.818 Encounter for other preprocedural examination (principal)

== ENCOUNTER 2023-05-17 09:58 | Day surgery (SDC) | payer MEDICARE, MEDICAID ==
[~2023-05-17] VITALS: Ht 149.9 cm; Wt 94.3 kg
[~2023-05-17 09:58] MED LIST changes: +BENR30AU SQ; +EMPA25TA PO; +ERGO1250 PO; +FENO135C4 PO; +MIRT-69 PO; +MTP25TSR PO; +OMEP40CA6 PO; +PROM25TA14 PO; +ROSU40TA23 PO; +SEMA2PEN SQ
--- NOTE | 2023-05-17 10:04 | Progress Note-Pre Operative ---
Pre-Operative Progress Note Date of Available H&P: Apr 29, 2023 Date H&P Reviewed: May 17, 2023 Time H&P Reviewed: 10:03 History & Physical: H&P Reviewed, Patient Examed, No changes noted Pre-Operative Diagnosis: GERD, HX of polyps KIRSTIE ARTHUR DO May 17, 2023 10:04
[2023-05-17] MEDS ORDERED: LACTATED RINGERS 1,000 ML 1,000 ML IV STA (10:07)
[2023-05-17] MEDS ORDERED: HURRICAINE EXT TUBE (BENZOCAINE) XX PRN (10:15)
[2023-05-17 10:23] VITALS: BP 114/82
[2023-05-17] MEDS ORDERED: KETAMINE 50 MG/5 ML SYRINGE ONE (10:54)
[2023-05-17] MEDS ORDERED: MIDAZOLAM INJ 2 MG/2 ML VIAL ONE (10:56)
[2023-05-17] MEDS ORDERED: meTOprolol INJECTION 5 MG/5 ML VIAL ONE (11:28)
[2023-05-17 11:35] VITALS: BP 104/35
--- NOTE | 2023-05-17 11:37 | Progress Note-Post Operative ---
Post-Operative Progess Note Surgeon (s)/Ultrasonic Cleaner (s) Surgeon KIRSTIE ARTHUR DO Ultrasonic Cleaner: ANGELINA Quinonez Pre-Operative Diagnosis GERD, HX of polyps Post-Operative Diagnosis Gastritis with bleed Esophagitis Polyps Diverticula int hemorrhoids Procedure & Operative Findings Date of Procedure 05/17/23 Procedure Performed/Findings EGD with biopsy Colonoscopy with snare polypectomy PROCEDURE NOTE: After informed consent was obtained, the patient was brought to the endoscopy suite, placed in bed in left lateral decubitus position. She was administered IV sedation by the ELECTRIC DOLLY OPERATOR who then monitored vitals the entire time, heart rate, blood pressure and pulse ox and the scope was inserted down the mouth through the esophagus into the stomach. On the way down, noted some mild esophagitis, took a picture, pushed into the stomach, pushed past the antrum into the duodenum. Duodenum looked good. Pulled back, noted some gastritis with small flecks of blood and did a biopsy of the antrum, body and cardia. I then retroflexed the scope, did not see a hiatal hernia, took a picture and then pulled the scope into the GE junction and then did a biopsy of the GE junction. Pushed the scope back into the stomach and suctioned all the air out of the stomach. At this point pulled the scope up the esophagus and out the mouth. Switched camera, switched gloves, went down below and started the colonoscopy. Pushed all the way to about 150 cm and pushed into the cecum. On the way in I noted diverticula and took a picture. I also found a polyp in the transverse colon and removed it with hot snare. In the cecum I took a picture of appendiceal orifice and noted the ileocecal valve. Then slowly withdrew the scope insufflating to look circumferentially at the uriarte starting in the cecum, up the ascending colon to the hepatic flexure, then down the transverse colon to the splenic flexure, into the descending colon down into the sigmoid and then into the rectum. I found 4 large polyps in the rectum and removed them with hot snare. Finally, in the rectal vault I retroflexed the scope and took a picture of the internal hemorrhoids. The patient tolerated the procedure and she recovered in the endoscopy suite. Recommended for repeat colonoscopy in 3 years Anesthesia Type IV sedation by ELECTRIC DOLLY OPERATOR Estimated Blood Loss Estimated blood loss (mL): scant Specimens/Packing Specimens Removed antral bx body of stomach bx cardia bx GE jxn bx Transverse colon polyp rectal polyp x 4 KIRSTIE ARTHUR DO May 17, 2023 11:36
--- NOTE | 2023-05-17 11:39 | Endoscopy Discharge Instruct ---
Endo Procedure/Findings Findings 1.: Gastritis 2.: Polyp 3.: Diverticulosis 4.: Internal Hemorrhoids Discharge Instructions - Activity: You might feel a little sleepy until tomorrow. This is due to the medicine you received to relax you. Until tomorrow, you should: NOT drive a car, operate machinery or power tools. NOT drink any alcoholic beverages. NOT make any important decisions or sign importortant papers. Do not return to work until tomorrow, unless otherwise instructed. Resume previo us activities tomorrow. Diet: Start by taking liquids. If you tolerate liquids, advance to solid food. 1.: EGD in 3 years 2.: Colonscopy in 3 years Notify Physician - If you experience excessive bleeding, unusual abdominal pain, fever, or chest pain, contact your doctor immediately. Follow-Up: Other Follow up in my office in one week KIRSTIE ARTHUR DO May 17, 2023 11:39
[2023-05-17 11:40] VITALS: BP 104/35
[2023-05-17 12:05] VITALS: BP 120/73
[2023-05-17 12:21] VITALS: BP 120/73
--- NOTE | 2023-05-17 13:15 | Anesthesia-General Post-Op ---
MAC Patient Condition Mental Status/LOC: Same as Preop Cardiovascular: Satisfactory Nausea/Vomiting: Absent Respiratory: Satisfactory Pain: Controlled Complications: Absent Post Op Complications Complications None Follow Up Care/Instructions Patient Instructions None needed. Anesthesiology Discharge Order Discharge Order Patient is doing well, no complaints, stable vital signs, no apparent adverse anesthesia problems. No complications reported per nursing. JOANN WILSON CRNA May 17, 2023 13:15
== END 2023-05-17 12:21 | disposition home or self-care (01) ==
LOC: ENDO 09:58
PROVIDERS: ATTEND Surgery
DX: Z12.11 Encounter for screening for malignant neoplasm of colon (principal); D12.3 Benign neoplasm of transverse colon; D12.8 Benign neoplasm of rectum; K62.1 Rectal polyp; K57.30 Diverticulosis of large intestine without perforation or abscess without bleeding; K64.8 Other hemorrhoids; K29.71 Gastritis, unspecified, with bleeding; K21.00 Gastro-esophageal reflux disease with esophagitis, without bleeding; K31.89 Other diseases of stomach and duodenum; K31.7 Polyp of stomach and duodenum; K22.70 Barrett's esophagus without dysplasia; J43.9 Emphysema, unspecified; E11.9 Type 2 diabetes mellitus without complications; E66.01 Morbid (severe) obesity due to excess calories; Z87.891 Personal history of nicotine dependence; Z79.84 Long term (current) use of oral hypoglycemic drugs; Z79.4 Long term (current) use of insulin; Z68.41 Body mass index [BMI] 40.0-44.9, adult
CPT/HCPCS: 84703; 88305